=== PATIENT | female | born 1965 | race Caucasian/White ===

== ENCOUNTER 2023-02-12 08:22 | Outpatient (AMB) | payer OTHER, SELFPAY ==
--- NOTE | 2023-02-12 08:30 | MHC.OFFVIS ---
Intake Vital Signs 02/12/23 08:31 Height 5 ft 3 in Weight 227 lb 2 oz BMI 40.2 BP 118/70 Blood Pressure Location Rt brachial Position Sitting Pulse 88 Pulse Source Pulse Oximeter Pulse Oximetry (%) 97 Oxygen Delivery Method Room Air Intake Visit Reasons: f/u for Migraines. - Last saw MD at [facility]-Confir Intake Note: Patient presents for follow up migraine. Patient states I just want my aimovig refilled,My headaches are bad and have been having problems getting in to see her due to being sick Allergies LOBSTER Allergy (Unknown, Uncoded 02/12/23 08:32) HIVES Medication List - Last Reviewed 02/12/23 by MAGALI Montilla-complex with vitamin C 1 cap PO DAILY clonazepam 0.25 mg PO BEDTIME docusate sodium 100 mg PO DAILY erenumab-aooe (Aimovig Autoinjector) 140 mg subcut ONCE 30 days rbwnpnditai-mdyxaxvaz-venetqaj (Trelegy Ellipta) inhalation furosemide 20 mg PO QAM ibuprofen 800 mg PO Q8H magnesium oxide 500 mg PO DAILY potassium chloride 20 mEq PO DAILY roflumilast (Daliresp) 500 mcg PO DAILY sertraline 50 mg PO DAILY trazodone 150 mg PO BEDTIME PRN ubrogepant (Ubrelvy) 50 - 100 mg (0.5 - 1 x 100 mg) PO ONCE PRN 30 days HPI HPI Comments History of Present Illness Details 57-yr-old female presents for f/u visit for management of her migraine attacks. Pt last seen in Feb [address] Hitchcock at [facility]. Pt reports that she was doing well on Aimovig, however she lost insurance covergae for it. Since, she has had approx 4 headache days per week. Her migraines symptoms have not chnaged- continues to be right sided stabbing with flashing light on the right side usually, or holocranial aching. A/w photophobia, phonophobia, N/V. Pt has previously tried amitriptyline, Topamax, verapamil and Oxcarbazepine, which did not help. She has never tried a triptan d/t cardiac hx. [facility] Medical History (Updated 02/14/23 @ 19:12 by QUINCY Lee) Asthma Median nerve neuropathy History of alcohol abuse COPD (chronic obstructive pulmonary disease) CHF (congestive heart failure) Surgical History (Updated 02/12/23 @ 08:34 by MAGALI Montilla) History of surgery on arm H/O neck surgery History of carpal tunnel release Social History (Updated 02/12/23 @ 08:35 by MAGALI Montilla) Alcohol intake: never Patient Tobacco Use Status: Current everyday Tobacco user Review of Systems Const All systems reviewed & are unremarkable except as noted in HPI and below Physical Exam Vital Signs: Last Vital Signs Pulse 88 02/12/23 08:31 BP 118/70 02/12/23 08:31 Pulse Ox 97 02/12/23 08:31 Oxygen Delivery Method Room Air 02/12/23 08:31 BMI result Body Mass Index 40.2 Const General: cooperative and no acute distress Orientation/consciousness: patient oriented x3 HEENT Head: Yes normocephalic Resp Effort & Inspection: normal respiratory effort and able to speak in complete sentences Neuro General: patient oriented x3, gait normal and CN's II-XI intact bilaterally Cognition (Neuro): normal cognition Motor exam (neuro): 5/5 motor strength present throughout Psych Appearance: grossly normal Mental Status: mental status grossly normal Speech and movement: Normal speech and movement present Affect: normal affect Attitude: cooperative Thought process: Normal thought process present Thought content: Normal thought content present Insight: Good insight present (Psych) Judgement: Good judgement present (Psych) Assessment & Plan Assessment & Plan (1) Migraine without aura: Code(s): G43.009 - Migraine without aura, not intractable, without status migrainosus (2) KIANA (obstructive sleep apnea): Code(s): G47.33 - Obstructive sleep apnea (adult) (pediatric) Plan For overall headache management: Continue to optimize good self care- use CPAP nightly. For acute headache treatment: Trial Ubrogepant (Ubrelvy) 100mg tab, 1/2 - 1 tab (50-100mg) at onset of headache, may repeat in 2 hours. Max of 2 tabs (200mg) per 24 hours. May adjunct with OTC Tylenol 650mg q 4 hours, Ibuprofen 600mg q 6 hours, or Naproxen 440mg q 12 hrs prn. Reviewed potential adverse effects of gepants, including but not limited to fatigue, nausea, dry mouth, constipation. Previous acute migraine medication trials: None Acute migraine medication contraindications: All triptans d/t CHF and HTN dx For headache prevention medication: Resume Aimovig 140mg sc q month, as pt previously had good effect. Previous migraine prevention medication trials: amitriptyline, Topamax, verapamil and Oxcarbazepine- all ineffective. Migraine prevention medication contraindications: BBs d/t CHF and asthma/COPD dx. f/u in 6 months or sooner prn. Medications: New ubrogepant (Ubrelvy) take at onset of migraine, may repeat in 2hrs (may take w/ Ibuprofen) 50 - 100 mg (0.5 - 1 x 100 mg) PO ONCE 30 days PRN 16 tabs 3RF migraine headache Changed From erenumab-aooe (Aimovig Autoinjector) 140 mg subcut .q 30 days 1 mL 6RF To erenumab-aooe (Aimovig Autoinjector) 140 mg subcut ONCE 30 days 30 mL 6RF Coding Level of Care Code Est Pt Level 4 (05367) Diagnoses Migraine without aura G43.009 KIANA (obstructive sleep apnea) G47.33
[2023-02-12 08:31] VITALS: BP 118/70; PULSE 88; O2SAT 97; BMI 40.2
== END 2023-02-12 09:05 | disposition home or self-care (01) ==
PROVIDERS: PCP Physician Assistant Medical; Visit Provider Nurse Practitioner Family
DX: G43.009 Migraine without aura, not intractable, without status migrainosus (principal); G47.33 Obstructive sleep apnea (adult) (pediatric)
CPT/HCPCS: 99214

== ENCOUNTER → 2023-02-12 08:22 | Outpatient (BNVA) | payer OTHER, SELFPAY | PROVIDERS: PCP Physician Assistant Medical; Visit Provider Nurse Practitioner Family | DX: G43.009 Migraine without aura, not intractable, without status migrainosus (principal); G47.33 Obstructive sleep apnea (adult) (pediatric) | CPT/HCPCS: 99212 ==

== ENCOUNTER 2023-09-15 07:34 | Outpatient (AMB) | payer OTHER, SELFPAY ==
--- NOTE | 2023-09-15 07:34 | MHC.OFFVIS ---
Intake Visit Reasons: 6 mo f/u - Migraines [phone]- Confirmed Intake Note: Patient following up on migraines, migraines are better but not completely resolved still having them but not quite as often Allergies LOBSTER Allergy (Unknown, Uncoded 09/15/23 07:35) HIVES Medication List - Last Reconciled 09/15/23 by QUINCY Lee B-complex with vitamin C 1 cap PO DAILY clonazepam 0.25 mg PO BEDTIME docusate sodium 100 mg PO DAILY erenumab-aooe (Aimovig Autoinjector) 140 mg subcut ONCE 30 days mzbcmtkspvj-jemwrutrg-glxvpdjl (Trelegy Ellipta) inhalation furosemide 20 mg PO QAM ibuprofen 800 mg PO Q8H magnesium oxide 500 mg PO DAILY potassium chloride 20 mEq PO DAILY roflumilast (Daliresp) 500 mcg PO DAILY sertraline 50 mg PO DAILY trazodone 150 mg PO BEDTIME PRN ubrogepant (Ubrelvy) 50 - 100 mg (0.5 - 1 x 100 mg) PO ONCE PRN 30 days HPI Comments Details: 58-yr-old female presents for f/u televideo visit via [employer]par[employer] Pt denies any significant interval medical changes. She is using her CPAP nightly. Her BP is well-controlled. She has lost 50lbs through diet, exercise and [facility] wt management- is still working w/ the program. Does not plan to have surgery d/t cardiac and pulmonary issues.. Pt reports migraine headaches have been good, but not perfect. She is having 1-2 migraine headaches per week, not as severe, but last all day. The pain is more aching now, more rarely stabbing. Can wake up with headache or the headache can come later. She has resumed Aimovig, taken monthly. The Ubrelvy helps, but not fully effective. Has not tried repeating dose or taking w/ her Ibuprofen. Baseline headache characteristics: right sided stabbing with flashing light on the right side usually, or holocranial aching. A/w photophobia, phonophobia, N/V. [facility] Medical History (Updated 02/14/23 @ 19:12 by QUINCY Lee) Asthma Median nerve neuropathy History of alcohol abuse COPD (chronic obstructive pulmonary disease) CHF (congestive heart failure) Surgical History History of surgery on arm H/O neck surgery History of carpal tunnel release Social History Alcohol intake: never Patient Tobacco Use Status: Current everyday Tobacco user Physical Exam Const General: cooperative and no acute distress Orientation/consciousness: patient oriented x3 Resp Effort & Inspection: normal respiratory effort and able to speak in complete sentences Neuro General: patient oriented x3 Cognition (Neuro): normal cognition Psych Appearance: grossly normal Mental Status: mental status grossly normal Speech and movement: Normal speech and movement present Affect: normal affect Attitude: cooperative Telehealth Telehealth Telehealth Platform: Triparazzi Location of provider rendering services: practice address Location of patient: address on file Patient Identification confirmed using: Name, : Yes Telehealth method: video Patient verbally consented to treatment: Yes Patient verbally consented to billing insurance company: Yes Patient informed of any privacy concerns related to visit: Yes Minutes spent on Phone/Video with Pt.: 16 Assessment & Plan Assessment & Plan (1) Migraine without aura: Code(s): G43.009 - Migraine without aura, not intractable, without status migrainosus Category: Medical (2) KIANA (obstructive sleep apnea): Code(s): G47.33 - Obstructive sleep apnea (adult) (pediatric) Category: Medical Plan For overall headache management: Continue to optimize good self care- use CPAP nightly. ? For acute headache treatment: Continue Ubrogepant (Ubrelvy) 100mg tab, 1/2 - 1 tab (50-100mg) at onset of headache, but if not fully effective repeat dose in 2 hours. Max of 2 tabs (200mg) per 24 hours. May take w/ her Ibuprofen 800mg q 8 hours. Reviewed potential adverse effects of gepants, including but not limited to fatigue, nausea, dry mouth, constipation. Previous acute migraine medication trials: None Acute migraine medication contraindications: All triptans d/t CHF and HTN dx Future considerations- Nurtec ODT prn. ? For headache prevention medication: Re-trial Topiramate 25-50mg qhs. Continue Aimovig 140mg sc q month, as pt has had > 50% reduction in migraine frequency. Previous migraine prevention medication trials: amitriptyline, Topamax, verapamil and Oxcarbazepine- all ineffective. Migraine prevention medication contraindications: BBs d/t CHF and asthma/COPD dx. ? f/u in 6 months or sooner prn. Medications: New topiramate 25 - 50 mg (1 - 2 x 25 mg) PO BEDTIME 30 days 60 tabs 3RF Refilled ubrogepant (Ubrelvy) take at onset of migraine, may repeat in 2hrs (may take w/ Ibuprofen) 50 - 100 mg (0.5 - 1 x 100 mg) PO ONCE 30 days PRN 16 tabs 6RF migraine headache erenumab-aooe (Aimovig Autoinjector) 140 mg subcut ONCE 30 days 30 mL 6RF Coding Level of Care Code Tele Est Pt Level 4 (53129) Diagnoses Migraine without aura G43.009 KIANA (obstructive sleep apnea) G47.33
--- OUTSIDE RECORDS SUMMARY | 2023-09-15 07:35 | XMS_ITS | Continuity of Care Document ---
Author Organization [facility] Address [address] [place] [address]- Care Team Providers Care Supervisor [employer] Name Role Phone Kwame Bolton Primary Care Physician Encounter [facility] Date(s): 01/05/22 - 02/25/22 [facility] [address] [place] [id number] Attending Physician: Not on Staff, Attending MD Allergies, Adverse Reactions, Alerts Substance Reaction Severity Status Lobster throat tightening; vomiting Active Shrimp throat tightening; vomiting Active Other Environmental Allergy Seasonal Allergies Active FIRST Metronidazole 1 vomiting, diarrhea, dyspnea Pers istent Moderate Active 1VOMITING DIARRHEA,SEVERE DYPNEA Immunizations Given and Recorded Vaccine Date Status Refusal Reason SARS-CoV-2 (COVID-19) mRNA-1273 vaccine 03/24/21 R ecorded SARS-CoV-2 (COVID-19) mRNA-1273 vaccine 1 08/22/20 Recorded SARS-CoV-2 (COVID-19) mRNA-1273 vaccine 2 07/24/20 Recorded Influenza Virus Vaccine (oldterm) 02/23/20 Recorde d Influenza Virus Vaccine (oldterm) 3 02/23/20 Recor ded Influenza Virus Vaccine (oldterm) 4 03/14/08 Given Influenza Virus Vaccine (oldterm) 5 04/01/07 Given influenza virus vaccine, inactivated 02/01/19 Give n influenza virus vaccine, inactivated 03/09/18 Give n influenza virus vaccine, inactivated 6 02/22/17 Gi cecile influenza virus vaccine, inactivated 03/09/16 Give n influenza virus vaccine, inactivated 03/08/15 Give n influenza virus vaccine, inactivated 02/27/14 Give n influenza virus vaccine, inactivated 07/20/13 Give n influenza virus vaccine, inactivated 7 04/19/12 Gi cecile influenza virus vaccine, inactivated 8 03/11/10 Gi cecile influenza virus vaccine, inactivated 9 02/26/09 Gi cecile tetanus-diphtheria toxoids (Td) 09/27/18 Given pneumococcal 23-valent vaccine 10 01/03/18 Given pneumococcal 13-valent vaccine 02/10/16 Given influ virus vac, H1N1, inactive(oldterm) 11 05/17/09 Given Tet/Diphth/Acel, Pertussis (oldterm) 12 05/30/08 G iven Pneumococcal Poly (PPV23) (oldterm) 08/08/06 Given Pneumococcal Vaccine (oldterm) 08/08/06 Given 1Result Comment: dose 2 2Result Comment: dose 1 3Result Comment: Re[facility] at [facility] on [facility] in [place] 4Admin Note: vis given 5Admin Note: vis given 6Result Comment: [02/22/2017] [facility] [id number] 7Admin Note: flulaval vis given vis date 11/16/2011 8Admin Note: VIS GIVEN VIS DATE 12/24/2009 9Admin Note: VIS GIVEN 12/25/08 [employer] 10Result Comment: [01/03/2018 Uncharted] ERROR NOT GIVEN 11Result Comment: [id number] exp 06/2009 12Admin Note: vis given Medications 02 2L via nasal cannula prn exertion or sob, also us pm bleed through cpap 02 2L via nasal cannula prn exertion or sob, also us pm bleed through cpap, See Instructions, # 1 each, Refills 0, Tot. Refills 0, Maintenance, 02 2L VIA NASAL CANNULA DX:COPD CHF J45.909 I50.9 DURATION LIFETIME Also needs portable 02 9L on wheel... Start Date: 02/02/20 Status: Ordered Acapella Device Acapella Device, See Instructions, # 1 each, Refills 3, Tot. Refills 3, Maintenance, COPD CHF 150.9J44.9, 07/12/19 11:29:00 EST, Compound Start Date: 07/12/19 Status: Ordered B-Complex with B-12 oral tablet See Instructions, TAKE ONE TABLET BY MOUTH DAILY WITH FOOD, # 90 tablet, 3 Refills, [facility], 90, TAKE ONE TABLET BY MOUTH DAILY WITH FOOD, 163, cm, 09/26/21 13:20:00 EDT, Height Start Date: 12/15/21 Status: Ordered Breo Ellipta 200 mcg-25 mcg/inh inhalation powder 1 puffs, Inhalation, Daily, rinse mouth and throat after use, # 60 Unknown, 5 Refills, Maintenance,02/18/22 11:21:00 EDT, [facility], 30, INHALE 1 PUFF BY MOUTH INTO THE lungs DAILY. rinse mouth and throat after use, 163, cm, 12/29/21 9:41:00 ED... Start Date: 02/18/22 Status: Ordered Cane See Instructions, # 1 each, Maintenance, DX LEFT KNEE PAIN /ACL TEAR /ARTHRITIS DX CODE M25.562 HT 163 CM WT 123 KG DURATION -LIETIME PATIENTS CANE BROKE, 01/06/19 8:36:49 EDT, Compound Start Date: 01/06/19 Status: Ordered Comfort EZ Pen Bristol 32 gauge x 5/32 Comfort EZ Pen Bristol 32 gauge x 5/32 , See Instructions, # 50 Unknown, 11 Refills, USE DAILY WITHvictoza injection, 163, cm, 03/25/21 9:16:00 EST, Height Start Date: 04/01/21 Status: Ordered Comfort EZ Pen Bristol 32 gauge x 5/32 Comfort EZ Pen Bristol 32 gauge x 5/32 , See Instructions, # 50 Unknown, 0 Refills, USE DAILY WITH victoza injection, 163, cm, 12/18/20 9:01:00 EDT, Height Start Date: 02/05/21 Status: Ordered D3 1000 intl units (25 mcg) oral tablet 1 tablet, By Mouth, Daily, # 30 tablet, 5 Refills, [facility], 163, cm, 09/26/21 13:20:00 EDT,Height Start Date: 12/22/21 Status: Ordered Daliresp 500 mcg oral tablet 1 tablet, By Mouth, Daily, # 30 tablet, 6 Refills, [facility], 163, cm, 09/26/21 13:20:00 EDT,Height Start Date: 11/14/21 Status: Ordered docusate sodium 100 mg oral capsule 1 capsule, By Mouth, Daily, # 60 each, 5 Refills, Maintenance, 02/18/22 11:21:00 EDT, [facility], 163, cm, 12/29/21 9:41:00 EDT, Height Start Date: 02/18/22 Status: Ordered Electric Neck Shawl Heating Pad Electric Neck Shawl Heating Pad, See Instructions, # 1 each, Refills 0, Tot. Refills 0, Maintenance, Use for chronic neck pain, neck muscle spasms. M54.2 and M62.838, 07/11/19 14:00:00 EST, Compound Start Date: 07/11/19 Status: Ordered furosemide 40 mg oral tablet 1, tablet, By Mouth, 2 times a day, # 60 tablet, Refills 4, Route to Pharmacy Electronically, [facility], 163, cm, 09/26/21 13:20:00 EDT, Height Start Date: 11/14/21 Status: Ordered guaiFENesin 100 mg/5 mL oral liquid 20 mL = 400 mg, By Mouth, 2 times a day, for congestion, cough. with fluids, # 240 mL, 0 Refills, Maintenance, 04/14/21 8:42:00 EST, [place], [place] - [phone], Partial fill upon patient request if the prescription is for a schedu... Start Date: 04/14/21 Status: Ordered HOME BP MONITOR WITH WRIST CUFF HOME BP MONITOR WITH WRIST CUFF, See Instructions, # 1 each, Refills 0, Tot. Refills 0, Maintenance, HOME BP MONITOR WITH WRIST CUFF DX HYPERTENSION I10, 12/12/19 12:14:00 EDT, Supply Start Date: 12/12/19 Status: Ordered Hospital Bed See Instructions, # 1 each, Maintenance, DX: COPD,ASTHMA,KIANA,CERVICAL DISC DISEASES, CHRONIC PAIN JJ44.9,G47.33 M50.9MG89.29 DURATION- LIFETIME, 03/29/19 16:31:32 EST, Compound Start Date: 03/29/19 Status: Ordered ibuprofen 800 mg oral tablet 1, tablet, By Mouth, Every 8 hours, PRN, TAKE WITH FOOD OR MILK, # 60 tablet, Refills 0, Maintenance, NEEDED FOR SEVERE PAIN, 02/18/22 11:21:00 EDT, Route to Pharmacy Electronically, [facility], 163, cm, 12/29/21 9:41:00 EDT, Height Start Date: 02/18/22 Status: Ordered INCONCTINENCE LINERS SUPER ABSORBANT INCONCTINENCE LINERS SUPER ABSORBANT, See Instructions, # 180 each, Refills 11, Tot. Refills 11, Maintenance, DX MIXED INCONTINENCE N39.46 6 PER DAY, 10/20/21 10:16:00 EDT, Compound Start Date: 10/20/21 Status: Ordered Insulin Syringe, BD Ultra-Fine 0.3 cc 30 G x 12.7 mm (1/2in) See Instructions, # 50 each, Maintenance, use with daily victoza injection, 12/18/20 10:58:00 EDT, Supply, 163, cm, 12/18/20 9:01:00 EDT, Height Start Date: 12/18/20 Status: Ordered Invacare Alternating Pressure Pad Invacare Alternating Pressure Pad, See Instructions, # 1 each, Refills 0, Tot. Refills 0, Maintenance, Dx codes: M54.2 and M79.10 Duration: lifetime., 02/27/21 19:01:00 EDT, Supply Start Date: 02/27/21 Status: Ordered Locking Bathtub Grab Bar Locking Bathtub Grab Bar, See Instructions, # 1 each, Refills 0, Tot. Refills 0, Maintenance, DX OSTEOARTHRITIS OF KNEES,CHF,WEAKNESS, RISK FOR FALLS M25.562,M17.0.150.9 DURATION - LIFETIME, 06/17/1913:14:03 EST, Compound Start Date: 06/17/18 Status: Ordered loratadine 10 mg oral tablet 1, tablet, By Mouth, Daily, # 30 tablet, Refills 3, Route to Pharmacy Electronically, [facility], 163, cm, 09/26/21 13:20:00 EDT, Height Start Date: 12/22/21 Status: Ordered magnesium gluconate 250 mg oral tablet 1 tablet = 250 mg, By Mouth, 2 times a day, # 60 tablet, 2 Refills, Maintenance, 02/23/22 19:10:00 EDT, [facility] - [place], [place] - [phone], Partial fill upon patient request if the prescription is for a schedule II opioid drug., 1 tablet B... Start Date: 02/23/22 Status: Ordered Narcan 4 mg/0.1 mL nasal spray = 4 mg, Inhalation, Once, # 2 each, 0 Refills, Soft Stop, 06/02/18 15:53:05 EST Start Date: 06/02/18 Status: Ordered NO RINSE SHAMPOO CAP NO RINSE SHAMPOO CAP, See Instructions, # 15 each, Refills 11, Tot. Refills 11, Maintenance, DX: CHF WEAKNESS 150.9 R53.1, 11/28/18 9:21:33 EDT, Compound Start Date: 11/28/18 Status: Ordered o2 o2, See Instructions, # 1 each, Refills 0, Tot. Refills 0, Maintenance, o2 2l via nasal cannula continuous will also need portable tank, 06/11/21 14:49:00 EST, Compound Start Date: 06/11/21 Status: Ordered open faced mask open faced mask, See Instructions, # 1 each, Refills 11, Tot. Refills 11, Maintenance, Codes G47.33, J44.9, 01/31/20 16:26:00 EDT, Compound Start Date: 01/31/20 Status: Ordered overnight oximetry overnight oximetry, See Instructions, # 1 each, Refills 0, Tot. Refills 0, Maintenance, copd, kiana ,nocturnal hypoxia J44.9,G47.33,RO9.2, 02/28/21 9:05:00 EDT, Supply Start Date: 02/28/21 Status: Ordered overnight oximetry overnight oximetry, See Instructions, # 1 each, Refills 0, Tot. Refills 0, Maintenance, Diagnosis of COPD J44.9, 02/27/21 19:32:00 EDT, Supply Start Date: 02/27/21 Status: Ordered portable oxygen concentrator portable oxygen concentrator, See Instructions, # 1 each, Refills 0, Tot. Refills 0, Maintenance, Dx severe COPD. Codes J44.9, R09.02, 01/31/20 16:26:00 EDT, Compound Start Date: 01/31/20 Status: Ordered Potassium Chloride (Onj-Tzev-Rfy M20) 20 mEq oral tablet, extended release 1 tablet, By Mouth, Daily, # 30 tablet, 6 Refills, [facility], 163, cm, 09/26/21 13:20:00 EDT,Height Start Date: 11/14/21 Status: Ordered pulse dose evaluation pulse dose evaluation, See Instructions, # 1 each, Refills 0, Tot. Refills 0, Maintenance, Pulse Dose Evaluation dx: copd,chf 150.9, j44.9, 01/31/20 16:26:00 EDT, Supply Start Date: 01/31/20 Status: Ordered seat cushion for coccygeal pain seat cushion for coccygeal pain, See Instructions, # 1 each, Refills 0, Tot. Refills 0, Maintenance, Dx code: M53.3 Duration: lifetime, 02/27/21 19:05:00 EDT, Supply Start Date: 02/27/21 Status: Ordered sertraline 50 mg oral tablet 1 tablet, By Mouth, Daily, # 30 tablet, 3 Refills, [facility], 163, cm, 09/26/21 13:20:00 EDT,Height Start Date: 12/15/21 Status: Ordered square orthopedic pillow with central square depression and surrounding bolster square orthopedic pillow with central square depression and surrounding bolster, See Instructions, # 1 each, Refills 0, Tot. Refills 0, Maintenance, Product number [id number] Dx codes: M54.2 Duration: lifetime, 02/27/21 19:03:00 EDT, Supply Start Date: 02/27/21 Status: Ordered traZODone 150 mg oral tablet 3 tablet, By Mouth, Daily at bedtime, # 270 tablet, 6 Refills, [facility], 163, cm, 09/26/21 13:20:00 EDT, Height Start Date: 11/14/21 Status: Ordered value series power lift chair [id number] value series power lift chair [id number], See Instructions, # 1 each, Refills 0, Tot. Refills 0, Maintenance, Diagnosis codes: G89.29, M19.90, J44.9, Z74.09, 01/30/20 9:31:00 EDT, Supply Start Date: 01/30/20 Status: Ordered varenicline 1mg tablet 1 tablet, By Mouth, 2 times a day, # 56 tablet, 5 Refills, [facility], 163, cm, 09/26/21 13:20:00 EDT, Height Start Date: 12/22/21 Status: Ordered Ventolin HFA 108 mcg/inh inhalation aerosol with adapter 2 puffs, Inhalation, 4 times a day, PRN Wheezing/Shortness of Breath, 90 days supply, # 1 each, 5 Refills, Maintenance, 10/07/20 6:45:00 EDT, [place], [place] - [phone], 163, cm, 09/24/20 13:25:00 EDT, Height Start Date: 10/07/20 Status: Ordered Victoza 18 mg/3 mL subcutaneous solution = 1.2 mg, Subcutaneous Infusion, Daily, dose increase to 1.2mg qd 04/29/21., # 15 mL, 5 Refills, Maintenance, 04/29/21 8:26:00 EST, [place], [place] - [phone], Partial fill upon patient request if the prescription is for a schedule... Start Date: 04/29/21 Status: Ordered wrist blood pressure monitor wrist blood pressure monitor, See Instructions, # 1 each, Refills 0, Tot. Refills 0, Maintenance, check daily BP for hypertension. R03.0, 12/05/19 8:52:00 EDT, Supply Start Date: 12/05/19 Status: Ordered Problem List Condition Confirmation Course Effective Dates Status Health St atus Informant Adjustment Disorder with Mixed Anxiety and Depressed Mood Confirmed Active Medical orders for life-sustaining treatment (MOLST) form in chart 1 Confirmed Active Anxiety Confirmed Active Asthma/COPD Overlap Syndrome Confirmed Active Advanced COPD Confirmed Active [facility] biopsy of cervix 2 Confirmed 07/2007 Active Diastolic CHF (congestive heart failure) Confirmed Active Hypertension Confirmed Active Hyponatremia Confirmed Active Median nerve palsy 3 Confirmed Active KIANA - Obstructive sleep apnea 4, 5 Confirmed Active BHN/CCA/CP-Jo Ann Harvey [phone]/Health [facility] active care coordination Confirmed Active Severe obesity Confirmed Active 1Health Care Agent: Fatmata Porter, 2along with endo cervical curettage 3bilateral R>L 4titration results reviewed - CPAP at 14 cm H2O. If remained symptomatic then a trial of BiPAP due to hypoventilation component. 5PSG done on 04/04/2007 - severe KIANA, desat to 83%. 42% of night below 90%. Social History Social History Type Response Smoking Status Current every day sm oker; Type: Cigarettes; Interested in cessation: No; Tobacco use times per day: 15 a day; Started at age: 9; entered on: 02/06/14 Sex Female Patient Care team information Personnel Name: Kwame Bolton Address: Address: [address] [place] [address] [place] [address]
--- OUTSIDE RECORDS SUMMARY | 2023-09-15 07:35 | XMS_ITS | Continuity of Care Document ---
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 Allergies, Adverse Reactions, Alerts Substance Reaction Severity Status Lobster throat tightening; vomiting Active Shrimp throat tightening; vomiting Active Other Environmental Allergy Seasonal Allergies Active FIRST Metronidazole 1 vomiting, diarrhea, dyspnea Pers istent Moderate Active 1VOMITING DIARRHEA,SEVERE DYPNEA Immunizations Given and Recorded Vaccine Date Status Refusal Reason SARS-CoV-2 (COVID-19) mRNA-1273 vaccine 1 08/22/20 Recorded [...] Comment: dose 1 3Result Comment: Received at [facility] in [place] 4Admin Note: vis given 5Admin Note: vis given 6Result Comment: [02/22/2017] [facility] [place] [id number] 7Admin Note: flulaval vis given vis date 11/16/2011 8Admin Note: VIS GIVEN VIS DATE 12/24/2009 9Admin Note: VIS GIVEN 12/25/08 chadian 10Result Comment: [01/03/2018 Uncharted] ERROR NOT GIVEN 11Result Comment: [id number] exp 06/2009 12Admin Note: vis given Medications [...] EST, Compound Start Date: 07/12/19 Status: Ordered Breo Ellipta 200 mcg-25 mcg/inh inhalation powder 1 puffs, Inhalation, Daily, rinse mouth and throat after use, # 60 Unknown, 5 Refills, [facility], 30, INHALE 1 PUFF BY MOUTH INTO THE lungs DAILY. rinse mouth and throat after use, 163, cm, 03/25/21 9:16:00 EST, Height Start Date: 04/01/21 Status: Ordered Cane See Instructions, # 1 each, Maintenance, DX LEFT KNEE PAIN /ACL TEAR /ARTHRITIS DX CODE M25.562 HT 163 CM WT 123 KG DURATION -LIETIME PATIENTS VERA BOYKIN, 01/06/19 8:36:49 EDT, Compound Start Date: 01/06/19 Status: Ordered chantix 1mg tablet 1 tablet, By Mouth, 2 times a day, # 60 tablet, 2 Refills, Maintenance, 04/29/21 8:24:00 EST, [place], [place] - [phone], 163, cm, 04/29/21 8:04:00 EST, Height Start Date: 04/29/21 Status: Ordered Comfort EZ Pen [place] 32 gauge x 5/32 Comfort EZ Pen [place] 32 gauge x 5/32 , See Instructions, # 50 Unknown, 11 Refills, USE DAILY WITHvictoza injection, 163, cm, 03/25/21 9:16:00 EST, Height Start Date: 04/01/21 Status: Ordered Comfort EZ Pen [place] 32 gauge x 5/32 Comfort EZ Pen [place] 32 gauge x 5/32 , See Instructions, # 50 Unknown, 0 Refills, USE DAILY WITH victoza injection, 163, cm, 12/18/20 9:01:00 EDT, Height Start Date: 02/05/21 Status: Ordered Daliresp 500 mcg oral tablet 1 tablet, By Mouth, Daily, # 30 tablet, 6 Refills, [facility], 163, cm, 04/29/21 8:04:00 EST, Height Start Date: 05/02/21 Status: Ordered docusate sodium 100 mg oral capsule 1 capsule, By Mouth, Daily, # 60 each, 5 Refills, Maintenance, 04/04/21 11:02:00 EST, [place], [place] - [phone], 163, cm, 03/25/21 9:16:00 EST, Height Start Date: 04/04/21 Status: Ordered doxycycline 100mg oral capsule doxycycline 100mg oral capsule, 1, capsule, By Mouth, 2 times a day, # 14 capsule, Refills 0, Tot. Refills 0, Maintenance, 04/29/21 8:31:00 EST, Supply, 163, cm, 04/29/21 8:04:00 EST, Height Start Date: 04/29/21 Stop Date: 05/06/21 Status: Ordered Electric Neck Shawl Heating Pad Electric Neck Shawl Heating Pad, See Instructions, # 1 each, Refills 0, Tot. Refills 0, Maintenance, Use for chronic neck pain, neck muscle spasms. M54.2 and M62.838, 07/11/19 14:00:00 EST, Compound Start Date: 07/11/19 Status: Ordered furosemide 40 mg oral tablet 1, tablet, By Mouth, 2 times a day, # 60 tablet, Refills 6, Route to Pharmacy Electronically, [facility], 163, cm, 04/29/21 8:04:00 EST, Height Start Date: 05/02/21 Status: Ordered guaiFENesin 100 mg/5 mL oral liquid 20 mL = 400 mg, By Mouth, 2 times a day, for congestion, cough. with fluids, # 240 mL, 0 Refills, Maintenance, 04/14/21 8:42:00 EST, [place], [place] - [phone], Partial fill upon patient request if the [...] FOOD OR MILK, # 60 tablet, Refills 11, NEEDEDFOR SEVERE PAIN, Route to Pharmacy Electronically, [facility], 163, cm, 03/25/21 9:16:00 EST, Height Start Date: 04/03/21 Status: Ordered INCONCTINENCE LINERS SUPER ABSORBANT INCONCTINENCE LINERS SUPER ABSORBANT, See Instructions, # 180 each, Refills 11, Tot. Refills 11, Maintenance, DX MIXED INCONTINENCE N39.46 6 PER DAY, 01/18/19 14:01:45 EDT, Compound Start Date: 01/18/19 Status: Ordered Insulin Syringe, BD Ultra-Fine 0.3 [...] Status: Ordered loratadine 10 mg oral tablet 10 mg, 1, tablet, By Mouth, Daily, # 30 tablet, Refills 3, Tot. Refills 3, Maintenance, 02/26/21 9:41:00 EDT, Route to Pharmacy Electronically, [place], [place] - [id number], Partialfill upon patient request if the prescription is fo... Start Date: 02/26/21 Status: Ordered magnesium oxide 400 mg oral tablet 1 tablet = 400 mg, By Mouth, Daily at bedtime, for 30 days, # 30 tablet, 5 Refills, Acute 08/26/21 10:54:00 EDT, 02/27/21 10:54:00 EDT, [facility], Partial fill upon patient request if the prescription is for a schedule II opioid drug., 16... Start Date: 02/27/21 Stop Date: 08/26/21 Status: Ordered Narcan 4 mg/0.1 mL nasal [...] cannula continuous will also need portable tank, 03/29/19 16:25:25 EST, Compound Start Date: 03/29/19 Status: Ordered open faced mask open faced mask, See Instructions, # 1 each, Refills 11, Tot. Refills 11, Maintenance, Codes G47.33, J44.9, 01/31/20 16:26:00 EDT, Compound Start Date: 01/31/20 Status: Ordered overnight oximetry overnight oximetry, See Instructions, # 1 each, Refills 0, Tot. Refills 0, Maintenance, copd, kinaa ,nocturnal hypoxia J44.9,G47.33,RO9.2, 02/28/21 9:05:00 EDT, Supply [...] Start Date: 01/31/20 Status: Ordered Potassium Chloride (Qlv-Yrmf-Egl M20) 20 mEq oral tablet, extended release 1 tablet, By Mouth, Daily, # 30 tablet, 6 Refills, [facility], 163, cm, 04/29/21 8:04:00 EST, Height Start Date: 05/02/21 Status: Ordered pulse dose evaluation pulse dose [...] tablet, By Mouth, Daily, # 30 tablet, 2 Refills, [facility], 163, cm, 04/29/21 8:04:00 EST, Height Start Date: 05/28/21 Status: Ordered square orthopedic pillow with central square depression and surrounding bolster square orthopedic pillow with central square depression and surrounding bolster, See Instructions, # 1 each, Refills 0, Tot. Refills 0, Maintenance, Product number [id number] Dx codes: M54.2 Duration: lifetime, 02/27/21 19:03:00 EDT, Supply Start Date: 02/27/21 Status: Ordered traZODone 150 mg oral tablet 3 tablet, By Mouth, Daily at bedtime, # 270 tablet, 1 Refills, Maintenance, 05/28/21 10:31:00 EST, [place], [place] - [id number], 163, cm, 04/29/21 8:04:00 EST, Height Start Date: 05/28/21 Status: Ordered triamcinolone 0.025% topical cream 1 applicator, Topically, 3 times a day, PRN eczema, # 80 Gm, 2 Refills, Maintenance, 08/16/19 15:48:00 EDT, [place], [place] -, 1 applicator Topically 3 times a day,PRN:eczema, 163, cm, 07/11/19 13:24:00 EST, Height, 114, kg, 04/19/18... Start Date: 08/16/19 Status: Ordered value series power lift chair [id number] value series power lift chair [id number], See Instructions, # 1 each, Refills 0, Tot. Refills 0, Maintenance, Diagnosis codes: G89.29, M19.90, J44.9, Z74.09, 01/30/20 9:31:00 EDT, Supply Start Date: 01/30/20 Status: Ordered Ventolin HFA 108 mcg/inh inhalation aerosol with adapter 2 puffs, Inhalation, 4 times a day, PRN Wheezing/Shortness of Breath, 90 days supply, # 1 each, 5 Refills, Maintenance, 10/07/20 6:45:00 EDT, [facility] [id number], 163, cm, 09/24/20 13:25:00 EDT, Height Start Date: 10/07/20 Status: Ordered Victoza 18 mg/3 mL subcutaneous solution = 1.2 mg, Subcutaneous Infusion, Daily, dose increase to 1.2mg qd 04/29/21., # 15 mL, 5 Refills, Maintenance, 04/29/21 8:26:00 EST, [facility] [phone], Partial fill upon patient request if the prescription is for a schedule... Start Date: 04/29/21 Status: Ordered Vitamin B Complex oral tablet, extended release 1 tablet, By Mouth, Daily, with food., # 90 tablet, 3 Refills, Maintenance, 12/18/20 10:26:00 EDT, [facility] [phone], Partial fill upon patient request if the prescription is for a schedule II opioid drug., 1 tablet By Rosana... Start Date: 12/18/20 Stop Date: 12/13/21 Status: Ordered Vitamin D3 1000 intl units oral tablet 1 tablet = 1,000 International_Units, By Mouth, Daily, # 30 tablet, 5 Refills, Maintenance, 01/31/21 13:11:00 EDT, [facility] [phone], 163, cm, 12/18/20 9:01:00 EDT, Height Start Date: 01/31/21 Stop Date: 07/30/21 Status: Ordered wrist blood pressure monitor wrist blood pressure monitor, See Instructions, # 1 each, Refills 0, Tot. Refills 0, Maintenance, check daily BP for hypertension. 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
--- OUTSIDE RECORDS SUMMARY | 2023-09-15 07:35 | XMS_ITS | Continuity of Care Document ---
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 Driver Assistant Name Role Phone Kwame Bolton Primary Care Physician Encounter [facility] Date(s): 07/03/20 - 08/02/20 [facility] [address] [place] [id number]- Allergies, Adverse Reactions, Alerts Substance Reaction Severity Status Lobster throat tightening; vomiting Active Shrimp throat tightening; vomiting Active Other Environmental Allergy Seasonal Allergies Active FIRST Metronidazole 1 vomiting, diarrhea, dyspnea Pers istent Moderate Active 1VOMITING DIARRHEA,SEVERE DYPNEA Immunizations Given and Recorded Vaccine Date Status Refusal Reason Influenza Virus Vaccine (oldterm) 02/23/20 Recorde d Influenza Virus Vaccine (oldterm) 1 02/23/20 Recor ded Influenza Virus Vaccine (oldterm) 2 03/14/08 Given Influenza Virus Vaccine (oldterm) 3 04/01/07 Given influenza virus vaccine, inactivated 02/01/19 Give n influenza virus vaccine, inactivated 03/09/18 Give n influenza virus vaccine, inactivated 4 02/22/17 Gi cecile influenza virus vaccine, inactivated 03/09/16 Give n influenza virus vaccine, inactivated 03/08/15 Give n influenza virus vaccine, inactivated 02/27/14 Give n influenza virus vaccine, inactivated 07/20/13 Give n influenza virus vaccine, inactivated 5 04/19/12 Gi cecile influenza virus vaccine, inactivated 6 03/11/10 Gi cecile influenza virus vaccine, inactivated 7 02/26/09 Gi cecile tetanus-diphtheria toxoids (Td) 09/27/18 Given pneumococcal 23-valent vaccine 8 01/03/18 Given pneumococcal 13-valent vaccine 02/10/16 Given influ virus vac, H1N1, inactive(oldterm) 9 05/17/09 Given Tet/Diphth/Acel, Pertussis (oldterm) 10 05/30/08 G iven Pneumococcal Poly (PPV23) (oldterm) 08/08/06 Given Pneumococcal Vaccine (oldterm) 08/08/06 Given 1Result Comment: Received at [facility] on [address] in [place] 2Admin Note: vis given 3Admin Note: vis given 4Result Comment: [02/22/2017] [facility] [id number] 5Admin Note: flulaval vis given vis date 11/16/2011 6Admin Note: VIS GIVEN VIS DATE 12/24/2009 7Admin Note: VIS GIVEN 12/25/08 hebrew 8Result Comment: [01/03/2018 Uncharted] ERROR NOT GIVEN 9Result Comment: [id number] exp 06/2009 10Admin Note: vis given Medications 02 2L via [...] EST, Compound Start Date: 07/12/19 Status: Ordered Acidophilus Probiotic Blend oral capsule 1 capsule, By Mouth, Daily, # 14 capsule, 0 Refills, Maintenance, 03/05/20 14:41:00 EDT, [facility]/pharmacy #[id number], 1 capsule By Mouth Daily,x14 days, 163, cm, 03/05/20 13:58:00 EDT, Height, 114, kg, 04/19/18 23:58:00 EST, Dry Weight Start Date: 03/05/20 Stop Date: 03/19/20 Status: Ordered Azithromycin 5 Day Dose Pack 250 mg oral tablet See Instructions, as directed on package labeling, # 6 each, 0 Refills, Maintenance, 07/31/20 14:22:00 EDT, [facility] [id number], Partial fill upon patient request if the prescription is for a schedule II opioid drug., 163, c... Start Date: 07/31/20 Status: Ordered Biotene Moisturizing Mouth oral spray 1 sprays, By Mouth, 6 times a day, please dispense 2 bottles per month., # 2 each, 5 Refills, Maintenance, 06/11/20 11:38:00 EST, [facility] [id number], 1 sprays By Mouth 6 times a day,Instr:please dispense 2 bottles per month... Start Date: 06/11/20 Status: Ordered Breo Ellipta 200 mcg-25 mcg/inh inhalation powder 1 puffs, Inhalation, Daily, Rinse mouth well after each use, # 1 each, 5 Refills, Maintenance, 08/16/19 15:52:00 EDT, Powder, [place], [place] -, 1 puffs Inhalation Daily,Instr:[place] well after each use, 163, cm, 07/11/19 13:24:... Start Date: 08/16/19 Status: Ordered Breo Ellipta 200 mcg-25 mcg/inh inhalation powder See Instructions, INHALE 1 PUFF BY MOUTH INTO THE lungs DAILY. rinse mouth and throat after use, # 60 Unknown, 11 Refills, 03/27/20 10:56:00 EST, [facility] [id number], 30, INHALE 1 PUFF BY MOUTH INTO THE lungs DAILY. rinse mo... Start Date: 03/27/20 Status: Ordered Cane See Instructions, # 1 each, Maintenance, DX LEFT KNEE PAIN /ACL TEAR /ARTHRITIS DX CODE M25.562 HT 163 CM WT 123 KG DURATION -LIETIME PATIENTS CANE BROKE, 01/06/19 8:36:49 EDT, Compound Start Date: 01/06/19 Status: Ordered chantix 1mg tablet See Instructions, TAKE ONE TABLET BY MOUTH 2 (two) times a day, # 56 tablet, 3 Refills, Maintenance, 03/27/20 10:55:00 EST, [facility] [id number], 163, cm, 03/05/20 13:58:00 EDT, Height, 114, kg, 04/19/18 23:58:00 EST, Dry Weight Start Date: 03/27/20 Status: Ordered clonazePAM 0.5 mg oral tablet 2 tablet = 1 mg, By Mouth, 2 times a day, # 120 tablet, 2 Refills, Maintenance, 07/09/20 16:30:00 EST, [place], [place] - [id number], 163, cm, 07/08/20 9:27:00 EST, Height Start Date: 07/09/20 Stop Date: 10/07/20 Status: Ordered Daliresp 500 mcg oral tablet See Instructions, 1 tablet By Mouth Daily, # 30 each, 6 Refills, Maintenance, 08/16/19 15:51:00 EDT, [place], [place] -, 163, cm, 07/11/19 13:24:00 EST, Height, 114, kg, 04/19/18 23:58:00 EST, Dry Weight Start Date: 08/16/19 Status: Ordered Daliresp 500 mcg oral tablet See Instructions, TAKE ONE TABLET BY MOUTH DAILY, # 30 tablet, 6 Refills, Maintenance, [facility], 163, cm, 03/05/20 13:58:00 EDT, Height, 114, kg, 04/19/18 23:58:00 EST, Dry Weight Start Date: 03/19/20 Status: Ordered Deep Sea Nasal 0.65% nasal spray 2 sprays, Nares, Both, 2 times a day, for congestion and allergies., # 1 bottle, 11 Refills, Maintenance, 09/29/18 13:31:39 EDT, 2 sprays Nares, Both 2 times a day,Instr:for congestion and allergies. Start Date: 09/29/18 Status: Ordered dexamethasone 4 mg oral tablet 1 tablet = 4 mg, By Mouth, Daily, 0 Refills, Maintenance, 12/20/18 9:31:36 EDT Start Date: 12/20/18 Status: Ordered docusate sodium 100 mg oral capsule 100 mg, 1, capsule, By Mouth, 2 times a day, # 30 capsule, Refills 5, Tot. Refills 5, Maintenance, 12/15/19 10:10:00 EDT, Route to Pharmacy Electronically, [facility] [id number], 163, cm, 07/11/19 13:24:00 EST, Height, 114, kg... Start Date: 12/15/19 Status: Ordered docusate sodium 100 mg oral capsule See Instructions, TAKE ONE CAPSULE BY MOUTH 2 (two) times a day, # 60 capsule, 5 Refills, 03/27/20 10:56:00 EST, [place], [place] - [id number], 163, cm, 03/05/20 13:58:00 EDT, Height, 114, kg, 04/19/18 23:58:00 EST, Dry Weight Start Date: 03/27/20 Status: Ordered Electric Neck Shawl Heating Pad Electric Neck Shawl Heating Pad, See Instructions, # 1 each, Refills 0, Tot. Refills 0, Maintenance, Use for chronic neck pain, neck muscle spasms. M54.2 and M62.838, 07/11/19 14:00:00 EST, Compound Start Date: 07/11/19 Status: Ordered Flonase 50 mcg/inh nasal spray 1 sprays, Nares, Both, 2 times a day, # 16 Gm, 5 Refills, Maintenance, 08/16/19 15:53:00 EDT, [place], [place] -, 1 sprays Nares, Both 2 times a day, 163, cm, 07/11/19 13:24:00 EST, Height, 114, kg, 04/19/18 23:58:00 EST, Dry Weight Start Date: 08/16/19 Status: Ordered furosemide 40 mg oral tablet 40 mg, 1, tablet, By Mouth, 2 times a day, # 60 tablet, Refills 3, Tot. Refills 3, Maintenance, 03/27/20 10:58:00 EST, Route to Pharmacy Electronically, [place], [place] - [id number], 163, cm, 03/05/20 13:58:00 EDT, Height, 114, kg, 1... Start Date: 03/27/20 Stop Date: 07/25/20 Status: Ordered guaiFENesin 100 mg/5 mL oral liquid 20 mL = 400 mg, By Mouth, Every 6 hours, PRN Cough and Congestion, with fluids, # 240 mL, 0 Refills, Maintenance, 09/28/19 14:14:00 EDT, [place], [place] -, 163, cm, 07/11/19 13:24:00 EST, Height, 114, kg, 04/19/18 23:58:00 EST, Dry W... Start Date: 09/28/19 Status: Ordered HOME BP MONITOR WITH WRIST [...] OR MILK, # 60 tablet, Refills 0, Tot. Refills 0, Acute, NEEDED FOR SEVERE PAIN, 05/13/20 8:59:00 EST, Route to Pharmacy Electronically, [facility], 163, cm, 03/05/20 13:58:00 EDT, Height Start Date: 05/13/20 Status: Ordered INCONCTINENCE LINERS SUPER ABSORBANT INCONCTINENCE LINERS SUPER ABSORBANT, See Instructions, # 180 each, Refills 11, Tot. Refills 11, Maintenance, DX MIXED INCONTINENCE N39.46 6 PER DAY, 01/18/19 14:01:45 EDT, Compound Start Date: 01/18/19 Status: Ordered Locking Bathtub Grab Bar Locking Bathtub Grab Bar, See Instructions, # 1 each, Refills 0, Tot. Refills 0, Maintenance, DX OSTEOARTHRITIS OF KNEES,CHF,WEAKNESS, RISK FOR FALLS M25.562,M17.0.150.9 DURATION - LIFETIME, 06/17/1913:14:03 EST, Compound Start Date: 06/17/18 Status: Ordered loratadine 10 mg oral tablet See Instructions, TAKE ONE TABLET BY MOUTH DAILY, # 30 tablet, Refills 3, Maintenance, InstructionsReplace Required Details, Route to Pharmacy Electronically, [facility], 163, cm, 03/05/20 13:58:00 EDT, Height, 114, kg, 04/19/18 23:58:00 EST, Start Date: 03/19/20 Status: Ordered loratadine 10 mg oral tablet 10 mg, 1, tablet, By Mouth, Daily, # 30 tablet, Refills 3, Tot. Refills 3, Maintenance, 01/18/20 15:46:00 EDT, Route to Pharmacy Electronically, [facility]/pharmacy #[id number], 163, cm, 07/11/19 13:24:00 EST, Height, 114, kg, 04/19/18 23:58:00 EST, Dry Weight Start Date: 01/18/20 Status: Ordered Narcan 4 mg/0.1 mL nasal [...] EST, Compound Start Date: 03/29/19 Status: Ordered omeprazole 40 mg oral enteric coated capsule 1 capsule = 40 mg, By Mouth, Daily, take on empty stomach, # 30 capsule, 1 Refills, Maintenance, 07/08/20 10:14:00 EST, CR Capsule, [place], [place] - [id number], Partial fill upon patient request if the prescription is for a schedule... Start Date: 07/08/20 Stop Date: 09/06/20 Status: Ordered open faced mask open faced mask, See Instructions, # 1 each, Refills 11, Tot. Refills 11, Maintenance, Codes G47.33, J44.9, 01/31/20 16:26:00 EDT, Compound Start Date: 01/31/20 Status: Ordered OXcarbazepine 150 mg oral tablet 75 mg, 0.5, tablet, By Mouth, 2 times a day, # 60 tablet, Refills 2, Tot. Refills 2, Maintenance, 12/26/19 16:58:00 EDT, Route to Pharmacy Electronically, [facility] [id number], 163, cm, 07/11/19 13:24:00 EST, Height, 114, kg,... Start Date: 12/26/19 Status: Ordered OXcarbazepine 150 mg oral tablet See Instructions, TAKE ONE TABLET BY MOUTH 2 (two) times a day, # 60 tablet, Refills 3, Tot. Refills 3, 03/27/20 10:55:00 EST, Instructions Replace Required Details, Route to Pharmacy Electronically,[facility] [id number], 163... Start Date: 03/27/20 Status: Ordered portable oxygen concentrator portable oxygen concentrator, See Instructions, # 1 each, Refills 0, Tot. Refills 0, Maintenance, Dx severe COPD. Codes J44.9, R09.02, 01/31/20 16:26:00 EDT, Compound Start Date: 01/31/20 Status: Ordered potassium chloride 20 mEq oral tablet, extended release 1 tablet, By Mouth, Daily, # 30 tablet, 5 Refills, Maintenance, 05/13/20 8:59:00 EST, [facility], 163, cm, 03/05/20 13:58:00 EDT, Height Start Date: 05/13/20 Status: Ordered predniSONE 20 mg oral tablet 2 tablet = 40 mg, By Mouth, Daily, for 5 days, with food or milk, # 10 tablet, 0 Refills, Acute 08/05/20 14:23:00 EDT, 07/31/20 14:23:00 EDT, [facility] [id number], Partial fill upon patient request if the prescription is for... Start Date: 07/31/20 Stop Date: 08/05/20 Status: Ordered predniSONE 20 mg oral tablet 2 tablet = 40 mg, By Mouth, Daily in AM, with food or milk home delivery please, # 6 tablet, 0 Refills, Maintenance, 05/30/20 20:00:00 EST, [facility] [place] [id number], 163, cm, 03/05/20 13:58:00 EDT, Height Start Date: 05/30/20 Stop Date: 06/02/20 Status: Ordered pulse dose evaluation pulse dose evaluation, See Instructions, # 1 each, Refills 0, Tot. Refills 0, Maintenance, Pulse Dose Evaluation dx: copd,chf 150.9, j44.9, 01/31/20 16:26:00 EDT, Supply Start Date: 01/31/20 Status: Ordered Shingrix intramuscular injection = 0.5 mL, Intramuscular, Once, repeat dose in 2 to 6 months, # 2 each, 0 Refills, Soft Stop, 01/17/20 11:40:00 EDT, Powder, [facility]/pharmacy #[id number], 0.5 mL Intramuscular Once,Instr:repeat dose in 2 to 6 months, 163, cm, 07/11/19 13:24:00 EST, Height, 114,... Start Date: 01/17/20 Status: Ordered SUMAtriptan 25 mg oral tablet 1 tablet = 25 mg, By Mouth, Daily, PRN for migraine headache, may repeat dose after 2 hours up to amaximum of 2 a day, no more than 2 days a week., # 9 tablet, 0 Refills, Maintenance, 03/19/20 17:18:00 EST, Tablet, [place], [place] -... Start Date: 03/19/20 Status: Ordered tinidazole 500 mg oral tablet 4 tablet = 2,000 mg, By Mouth, Daily, with food, # 8 tablet, 0 Refills, Soft Stop, 03/18/20 14:36:00 EST, [place], [place] - [id number], 163, cm, 03/05/20 13:58:00 EDT, Height, 114, kg, 04/19/18 23:58:00 EST, Dry Weight Start Date: 03/18/20 Stop Date: 03/20/20 Status: Ordered traZODone 150 mg oral tablet 3 tablet = 450 mg, By Mouth, Daily at bedtime, Please d/c order for 300mg qhs. Correct dose 450mg qhs., # 90 tablet, 5 Refills, Maintenance, 03/27/20 10:57:00 EST, [place], [place] -[id number], 163, cm, 03/05/20 13:58:00 EDT, Height,... Start Date: 03/27/20 Status: Ordered triamcinolone 0.025% topical cream 1 applicator, Topically, 3 times a day, PRN eczema, # 80 Gm, 2 Refills, Maintenance, 08/16/19 15:48:00 EDT, [place], [place] -, 1 applicator Topically 3 times a day,PRN:eczema, 163, cm, 07/11/19 13:24:00 EST, Height, 114, kg, 04/19/18... Start Date: 08/16/19 Status: Ordered value series power lift chair [id number] value series power lift chair [id number], See Instructions, # 1 each, Refills 0, Tot. Refills 0, Maintenance, Diagnosis codes: G89.29, M19.90, J44.9, Z74.09, 01/30/20 9:31:00 EDT, Supply Start Date: 01/30/20 Status: Ordered Ventolin HFA 108 mcg/inh inhalation aerosol with adapter 2 puffs, Inhalation, 4 times a day, PRN Wheezing/Shortness of Breath, 90 days supply, # 1 each, 5 Refills, Maintenance, 04/15/20 17:48:00 EST, [place], [place] - [id number], 163, cm,03/05/20 13:58:00 EDT, Height, 114, kg, 04/19/18 23... Start Date: 04/15/20 Status: Ordered verapamil 120 mg oral tablet 1 tablet, By Mouth, 3 times a day, home delivery please., # 90 tablet, 5 Refills, Maintenance, 05/21/20 11:21:00 EST, [place], [place] - [id number], 163, cm, 03/05/20 13:58:00 EDT, Height Start Date: 05/21/20 Status: Ordered Vitamin D3 1000 intl units oral tablet 1 tablet = 1,000 International_Units, By Mouth, Daily, # 90 tablet, 3 Refills, Maintenance, 08/16/19 15:51:00 EDT, [place], [place] -, 163, cm, 07/11/19 13:24:00 EST, Height, 114, kg, 04/19/18 23:58:00 EST, Dry Weight Start Date: 08/16/19 Stop Date: 08/10/20 Status: Ordered wrist blood pressure monitor wrist [...] - Obstructive sleep apnea(Confirmed) 4, 5 Active [facility]/CP-Jo Ann Harvey [phone]/Health [facility] active care coordination(Confirmed) Active 1Health Care Agent: Fatmata Porter, 2along with endo cervical curettage 3bilateral R>L 4titration results reviewed - CPAP at 14 cm H2O. If remained symptomatic then a trial of BiPAP due to hypoventilation component. 5PSG done on 04/04/2007 - severe KIANA, desat to 83%. 42% of night below 90%. Social History Social History Type Response Smoking Status Current every day rut islas; Type: Cigarettes; Interested in cessation: No; Tobacco use times per day: 15 a day; Started at age: 9; entered on: 02/06/14 Sex Female
--- OUTSIDE RECORDS SUMMARY | 2023-09-15 07:36 | XMS_ITS | Continuity of Care Document ---
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 in [place] 4Admin Note: vis given 5Admin Note: vis given 6Result Comment: [02/22/2017] [facility] [id number] 7Admin Note: flulaval vis given vis date 11/16/2011 8Admin Note: VIS GIVEN VIS DATE 12/24/2009 9Admin Note: VIS GIVEN 12/25/08 scottish 10Result Comment: [01/03/2018 Uncharted] ERROR NOT GIVEN 11Result Comment: [id number] exp 06/2009 12Admin Note: vis given Medications [...] EST, Compound Start Date: 07/12/19 Status: Ordered [place] Saline 0.65% nasal solution See Instructions, use twice a day to rinse the nasal passages., # 120 mL, 1 Refills, Maintenance, 10/16/20 11:31:00 EDT, [facility] - [place], [place] - [id number], Partial fill upon patient request if the prescription is for a schedule II opioid... Start Date: 10/16/20 Status: Ordered Biotene Moisturizing Mouth oral spray 1 sprays, By Mouth, 6 times a day, please dispense 2 bottles per month., # 2 each, 5 Refills, Maintenance, 06/11/20 11:38:00 EST, [place], [place] - [id number], 1 sprays By Mouth 6 times a day,Instr:please dispense 2 bottles per month... Start Date: 06/11/20 Status: Ordered Breo Ellipta 200 mcg-25 mcg/inh inhalation powder See Instructions, INHALE 1 PUFF BY MOUTH INTO THE lungs DAILY. rinse mouth and throat after use, # 60 Unknown, 11 Refills, 03/27/20 10:56:00 EST, [place], [place] - [id number], 30, INHALE 1 PUFF BY MOUTH INTO THE lungs DAILY. rinse mo... Start Date: 03/27/20 Status: Ordered Cane See Instructions, # 1 each, Maintenance, DX LEFT KNEE PAIN /ACL TEAR /ARTHRITIS DX CODE M25.562 HT 163 CM WT 123 KG DURATION -LIETIME PATIENTS CANE ASHUTOSH, 01/06/19 8:36:49 EDT, Compound Start Date: 01/06/19 Status: Ordered chantix 1mg tablet 1 tablet, By Mouth, 2 times a day, # 56 tablet, 0 Refills, Acute, 11/04/20 12:42:00 EDT, [facility], 163, cm, 10/16/20 10:59:00 EDT, Height Start Date: 11/04/20 Status: Ordered clonazePAM 0.5 mg oral tablet 2 tablet = 1 mg, By Mouth, 2 times a day, # 120 tablet, 2 Refills, Maintenance, 10/07/20 18:45:00 EDT, [place], [place] - [id number], 163, cm, 09/24/20 13:25:00 EDT, Height Start Date: 10/07/20 Stop Date: 01/05/21 Status: Ordered Daliresp 500 mcg oral tablet 1 tablet, By Mouth, Daily, # 30 tablet, 6 Refills, Maintenance, 10/07/20 18:44:00 EDT, [facility], 163, cm, 09/24/20 13:25:00 EDT, Height Start Date: 10/07/20 Status: Ordered [place] Nasal 0.65% nasal spray 2 sprays, Nares, Both, 2 times a day, for congestion and allergies., # 1 bottle, 11 Refills, Maintenance, 09/29/18 13:31:39 EDT, 2 sprays Nares, Both 2 times a day,Instr:for congestion and allergies. Start Date: 09/29/18 Status: Ordered docusate sodium 100 mg oral capsule 1 capsule, By Mouth, 2 times a day, # 60 each, 5 Refills, Maintenance, 11/04/20 10:05:00 EDT, [facility] [id number], 163, cm, 10/16/20 10:59:00 EDT, Height Start Date: 11/04/20 Status: Ordered Electric Neck Shawl Heating Pad Electric Neck Shawl Heating Pad, See Instructions, # 1 each, Refills 0, Tot. Refills 0, Maintenance, Use for chronic neck pain, neck muscle spasms. M54.2 and M62.838, 07/11/19 14:00:00 EST, Compound Start Date: 07/11/19 Status: Ordered Flonase 50 mcg/inh nasal spray 1 sprays, Nares, Both, 2 times a day, # 16 Gm, 2 Refills, Maintenance, 09/24/20 14:53:00 EDT, [facility] [id number], 1 sprays Nares, Both 2 times a day, 163, cm, 09/24/20 13:25:00 EDT, Height Start Date: 09/24/20 Status: Ordered furosemide 40 mg oral tablet 40 mg, 1, tablet, By Mouth, 2 times a day, # 60 tablet, Refills 5, Tot. Refills 5, Maintenance, 08/05/20 13:27:00 EDT, Route to Pharmacy Electronically, [facility] [id number], 163, cm, 07/31/20 13:11:00 EDT, Height Start Date: 08/05/20 Stop Date: 02/01/21 Status: Ordered HOME BP MONITOR WITH WRIST [...] 05/13/20 8:59:00 EST, Route to Pharmacy Electronically, [facility], 163, cm, 03/05/20 13:58:00 EDT, Height [...] 01/18/20 15:46:00 EDT, Route to Pharmacy Electronically, [facility]/pharmacy #[id number], 163, cm, 07/11/19 13:24:00 EST, Height, 114, kg, 04/19/18 23:58:00 EST, Dry Weight Start Date: 01/18/20 Status: Ordered loratadine 10 mg oral tablet 10 mg, 1, tablet, By Mouth, Daily, # 10 tablet, Refills 0, Tot. Refills 0, Maintenance, 09/24/20 14:52:00 EDT, Route to Pharmacy Electronically, [place], [place] - [id number], Partial fill upon patient request if the prescription is f... Start Date: 09/24/20 Stop Date: 10/04/20 Status: Ordered Narcan 4 mg/0.1 mL nasal [...] take on empty stomach, # 30 capsule, 2 Refills, Maintenance, 11/14/20 12:14:00 EDT, CR Capsule, [place], [place] - [id number], Partial fill upon patient request if the prescription is for a schedule... Start Date: 11/14/20 Stop Date: 02/12/21 Status: Ordered open faced mask open faced mask, See Instructions, # 1 each, Refills 11, Tot. Refills 11, Maintenance, Codes G47.33, J44.9, 01/31/20 16:26:00 EDT, Compound Start Date: 01/31/20 Status: Ordered OXcarbazepine 150 mg oral tablet 1, tablet, By Mouth, 2 times a day, # 60 tablet, Refills 0, Tot. Refills 0, Maintenance, 11/04/20 12:42:00 EDT, Route to Pharmacy Electronically, [facility], 163, cm, 10/16/20 10:59:00 EDT, Height Start Date: 11/04/20 Status: Ordered portable oxygen concentrator portable oxygen concentrator, See Instructions, # 1 each, Refills 0, Tot. Refills 0, Maintenance, Dx severe COPD. Codes J44.9, R09.02, 01/31/20 16:26:00 EDT, Compound Start Date: 01/31/20 Status: Ordered Potassium Chloride (Yec-Zhdv-Wek M20) 20 mEq oral tablet, extended release 1 tablet, By Mouth, Daily, # 30 tablet, 5 Refills, Maintenance, 11/04/20 12:42:00 EDT, [facility], 163, cm, 10/16/20 10:59:00 EDT, Height Start Date: 11/04/20 Status: Ordered pulse dose evaluation pulse dose evaluation, See Instructions, # 1 each, Refills 0, Tot. Refills 0, Maintenance, Pulse Dose Evaluation dx: copd,chf 150.9, j44.9, 01/31/20 16:26:00 EDT, Supply Start Date: 01/31/20 Status: Ordered sertraline 25 mg oral tablet See Instructions, 1 tablet By Mouth Daily for 2 weeks, then increase to 2 tablets per day., # 42 each, 0 Refills, Maintenance, 08/29/20 19:11:00 EDT, [facility] [id number], Partial fill upon patient request if the prescription... Start Date: 08/29/20 Status: Ordered sertraline 50 mg oral tablet 1 tablet = 50 mg, By Mouth, Daily, please d/c 25mg tablet., # 30 tablet, 5 Refills, Maintenance, 09/24/20 14:52:00 EDT, [facility] [id number], Partial fill upon patient request if the prescription is for a schedule II opioid d... Start Date: 09/24/20 Status: Ordered Shingrix intramuscular injection = 0.5 mL, Intramuscular, Once, repeat dose in 2 to 6 months, # 2 each, 0 Refills, Soft Stop, 01/17/20 11:40:00 EDT, Powder, [facility]/pharmacy #[id number], 0.5 mL Intramuscular Once,Instr:repeat dose in 2 to 6 months, 163, cm, 07/11/19 13:24:00 EST, Height, 114,... Start Date: 01/17/20 Status: Ordered traZODone 150 mg oral tablet 3 tablet, By Mouth, Daily at bedtime, # 90 tablet, 0 Refills, Maintenance, 12/03/20 15:05:00 EDT, [facility], 163, cm, 10/16/20 10:59:00 EDT, Height Start Date: 12/03/20 Status: Ordered triamcinolone 0.025% topical cream 1 applicator, Topically, 3 times a day, PRN eczema, # 80 Gm, 2 Refills, Maintenance, 08/16/19 15:48:00 EDT, [place], [place] -, 1 applicator Topically 3 times a day,PRN:eczema, 163, cm, 07/11/19 13:24:00 EST, Height, 114, kg, 04/19/18... Start Date: 08/16/19 Status: Ordered value series power lift chair [id number] value series power lift chair [id number], See Instructions, # 1 each, Refills 0, Tot. Refills 0, Maintenance, Diagnosis codes: G89.29, M19.90, J44.9, Z74.09, 01/30/20 9:31:00 EDT, Supply Start Date: 01/30/20 Status: Ordered Ventolin HFA 108 mcg/inh inhalation aerosol with adapter 2 puffs, Inhalation, 4 times a day, PRN Wheezing/Shortness of Breath, 90 days supply, # 1 each, 5 Refills, Maintenance, 10/07/20 6:45:00 EDT, [place], [place] - [id number], 163, cm, 09/24/20 13:25:00 EDT, Height Start Date: 10/07/20 Status: Ordered Vitamin D3 1000 intl units oral tablet 1 tablet = 1,000 International_Units, By Mouth, Daily, # 90 tablet, 1 Refills, Maintenance, 08/10/20 15:51:00 EDT, [place], [place] - [id number], 163, cm, 07/31/20 13:11:00 EDT, Height Start Date: 08/10/20 Stop Date: 02/06/21 Status: Ordered wrist blood pressure monitor wrist [...] apnea(Confirmed) 4, 5 Active BHN/CCA/CP-Jo Ann Harvey [phone]/Health detention active care coordination(Confirmed) Active 1Health Care Agent: [...]
--- OUTSIDE RECORDS SUMMARY | 2023-09-15 07:36 | XMS_ITS | Continuity of Care Document ---
Author Organization [facility] Address [address] [place] [address]- Care Team Providers Care Audit Lead Name Role Phone Kwame Bolton Primary Care Physician [facility] Date[facility]s): 07/05/20 - 08/04/20 [facility] [address] [place] [id number]- Allergies, Adverse Reactions, Alerts Substance Reaction Severity [...] (oldterm) 08/08/06 Given 1Result Comment: Received at [facility] on [facility] in [place] 2Admin Note: vis given 3Admin Note: vis given 4Result Comment: [02/22/2017] [facility] [id number] 5Admin Note: flulaval vis given vis date 11/16/2011 6Admin Note: VIS GIVEN VIS DATE 12/24/2009 7Admin Note: VIS GIVEN 12/25/08 turkish 8Result Comment: [01/03/2018 Uncharted] ERROR NOT GIVEN 9Result Comment: [id number] exp 06/2009 10Admin Note: vis given Medications [...] capsule, 0 Refills, Maintenance, 03/05/20 14:41:00 EDT, [facility]/pharmacy #[id number], 1 capsule By Mouth Daily,x14 days, 163, cm, 03/05/20 13:58:00 EDT, Height, 114, kg, 04/19/18 23:58:00 EST, Dry Weight Start Date: 03/05/20 Stop Date: 03/19/20 Status: Ordered Azithromycin 5 Day Dose Pack 250 mg oral tablet See Instructions, as directed on package labeling, # 6 each, 0 Refills, Maintenance, 07/31/20 14:22:00 EDT, [facility] [id number], Partial fill upon patient request if the prescription is for a schedule II opioid drug., 163, c... Start Date: 07/31/20 Status: Ordered Biotene Moisturizing Mouth oral spray 1 sprays, By Mouth, 6 times a day, please dispense 2 bottles per month., # 2 each, 5 Refills, Maintenance, 06/11/20 11:38:00 EST, [facility] [id number], 1 sprays By Mouth 6 times a day,Instr:please dispense 2 bottles per month... Start Date: 06/11/20 Status: Ordered Breo Ellipta 200 mcg-25 mcg/inh inhalation powder 1 puffs, Inhalation, Daily, Rinse mouth well after each use, # 1 each, 5 Refills, Maintenance, 08/16/19 15:52:00 EDT, Powder, [place], [place] -, 1 puffs Inhalation Daily,Instr:[place] well after each use, 163, cm, 07/11/19 13:24:... Start Date: 08/16/19 Status: Ordered Breo Ellipta 200 mcg-25 mcg/inh inhalation powder See Instructions, INHALE 1 PUFF BY MOUTH INTO THE lungs DAILY. rinse mouth and throat after use, # 60 Unknown, 11 Refills, 03/27/20 10:56:00 EST, [facility] [id number], 30, INHALE 1 PUFF BY MOUTH INTO [...] tablet, 3 Refills, Maintenance, 03/27/20 10:55:00 EST, [facility] [id number], 163, cm, 03/05/20 13:58:00 EDT, Height, 114, kg, 04/19/18 23:58:00 EST, Dry Weight Start Date: 03/27/20 Status: Ordered clonazePAM 0.5 mg oral tablet 2 tablet = 1 mg, By Mouth, 2 times a day, # 120 tablet, 2 Refills, Maintenance, 07/09/20 16:30:00 EST, [place], [place] - [id number], 163, cm, 07/08/20 9:27:00 EST, Height Start Date: 07/09/20 Stop Date: 10/07/20 Status: Ordered Daliresp 500 mcg oral tablet See Instructions, 1 tablet By Mouth Daily, # 30 each, 6 Refills, Maintenance, 08/16/19 15:51:00 EDT, [place], [place] -, 163, cm, 07/11/19 13:24:00 EST, Height, 114, kg, 04/19/18 23:58:00 EST, Dry Weight Start Date: 08/16/19 Status: Ordered Daliresp 500 mcg oral tablet See Instructions, TAKE ONE TABLET BY MOUTH DAILY, # 30 tablet, 6 Refills, Maintenance, [facility], 163, cm, 03/05/20 13:58:00 EDT, Height, [...] 12/15/19 10:10:00 EDT, Route to Pharmacy Electronically, [facility] [id number], 163, cm, 07/11/19 13:24:00 EST, Height, 114, kg... Start Date: 12/15/19 Status: Ordered docusate sodium 100 mg oral capsule See Instructions, TAKE ONE CAPSULE BY MOUTH 2 (two) times a day, # 60 capsule, 5 Refills, 03/27/20 10:56:00 EST, [place], [place] - [id number], 163, cm, 03/05/20 13:58:00 EDT, Height, 114, [...] Gm, 5 Refills, Maintenance, 08/16/19 15:53:00 EDT, [place], [place] -, 1 sprays Nares, Both 2 times a day, 163, cm, 07/11/19 13:24:00 EST, Height, 114, kg, 04/19/18 23:58:00 EST, Dry Weight Start Date: 08/16/19 Status: Ordered furosemide 40 mg oral tablet 40 mg, 1, tablet, By Mouth, 2 times a day, # 60 tablet, Refills 3, Tot. Refills 3, Maintenance, 03/27/20 10:58:00 EST, Route to Pharmacy Electronically, [place], [place] - [id number], 163, cm, 03/05/20 13:58:00 EDT, Height, 114, kg, 1... Start Date: 03/27/20 Stop Date: 07/25/20 Status: Ordered guaiFENesin 100 mg/5 mL oral liquid 20 mL = 400 mg, By Mouth, Every 6 hours, PRN Cough and Congestion, with fluids, # 240 mL, 0 Refills, Maintenance, 09/28/19 14:14:00 EDT, [place], [place] -, 163, cm, 07/11/19 13:24:00 EST, [...] 01/18/20 15:46:00 EDT, Route to Pharmacy Electronically, [facility]/pharmacy #[id number], 163, cm, 07/11/19 13:24:00 [...] Refills, Maintenance, 07/08/20 10:14:00 EST, CR Capsule, [place], [place] - [id number], Partial fill upon patient request if the [...] 12/26/19 16:58:00 EDT, Route to Pharmacy Electronically, [facility] [id number], 163, cm, 07/11/19 13:24:00 EST, Height, 114, kg,... Start Date: 12/26/19 Status: Ordered OXcarbazepine 150 mg oral tablet See Instructions, TAKE ONE TABLET BY MOUTH 2 (two) times a day, # 60 tablet, Refills 3, Tot. Refills 3, 03/27/20 10:55:00 EST, Instructions Replace Required Details, Route to Pharmacy Electronically,[facility] [id number], 163... Start Date: 03/27/20 Status: Ordered portable oxygen concentrator portable oxygen concentrator, See Instructions, # 1 each, Refills 0, Tot. Refills 0, Maintenance, Dx severe COPD. Codes J44.9, R09.02, 01/31/20 16:26:00 EDT, Compound Start Date: 01/31/20 Status: Ordered potassium chloride 20 mEq oral tablet, extended release 1 tablet, By Mouth, Daily, # 30 tablet, 5 Refills, Maintenance, 05/13/20 8:59:00 EST, [facility], 163, cm, 03/05/20 13:58:00 EDT, Height Start Date: 05/13/20 Status: Ordered predniSONE 20 mg oral tablet 2 tablet = 40 mg, By Mouth, Daily, for 5 days, with food or milk, # 10 tablet, 0 Refills, Acute 08/05/20 14:23:00 EDT, 07/31/20 14:23:00 EDT, [facility] [id number], Partial fill upon patient request if the prescription is for... Start Date: 07/31/20 Stop Date: 08/05/20 Status: Ordered predniSONE 20 mg oral tablet 2 tablet = 40 mg, By Mouth, Daily in AM, with food or milk home delivery please, # 6 tablet, 0 Refills, Maintenance, 05/30/20 20:00:00 EST, [facility] [id number], 163, cm, 10/20/20 13:58:00 EDT, Height Start Date: 05/30/20 Stop [...] Refills, Soft Stop, 01/17/20 11:40:00 EDT, Powder, [facility]/pharmacy #[id number], 0.5 mL Intramuscular Once,Instr:repeat [...] 0 Refills, Maintenance, 03/19/20 17:18:00 EST, Tablet, [place], [place] -... Start Date: 03/19/20 Status: Ordered tinidazole 500 mg oral tablet 4 tablet = 2,000 mg, By Mouth, Daily, with food, # 8 tablet, 0 Refills, Soft Stop, 03/18/20 14:36:00 EST, [place], [place] - [id number], 163, cm, 03/05/20 13:58:00 EDT, Height, 114, kg, 04/19/18 23:58:00 EST, Dry Weight Start Date: 03/18/20 Stop Date: 03/20/20 Status: Ordered traZODone 150 mg oral tablet 3 tablet = 450 mg, By Mouth, Daily at bedtime, Please d/c order for 300mg qhs. Correct dose 450mg qhs., # 90 tablet, 5 Refills, Maintenance, 03/27/20 10:57:00 EST, [place], [place] -[id number], 163, cm, 03/05/20 13:58:00 EDT, Height,... Start Date: 03/27/20 Status: Ordered triamcinolone 0.025% topical cream 1 applicator, Topically, 3 times a day, PRN eczema, # 80 Gm, 2 Refills, Maintenance, 08/16/19 15:48:00 EDT, [place], [place] -, 1 applicator Topically 3 times a day,PRN:eczema, 163, cm, 07/11/19 13:24:00 EST, Height, 114, kg, 04/19/18... Start Date: 08/16/19 Status: Ordered value series power lift chair [id number] value series power lift chair [id number], See Instructions, # 1 each, Refills 0, Tot. Refills 0, Maintenance, Diagnosis codes: G89.29, M19.90, J44.9, Z74.09, 01/30/20 9:31:00 EDT, Supply Start Date: 01/30/20 Status: Ordered Ventolin HFA 108 mcg/inh inhalation aerosol with adapter 2 puffs, Inhalation, 4 times a day, PRN Wheezing/Shortness of Breath, 90 days supply, # 1 each, 5 Refills, Maintenance, 04/15/20 17:48:00 EST, [place], [place] - [id number], 163, cm,03/05/20 13:58:00 EDT, Height, 114, kg, 04/19/18 23... Start Date: 04/15/20 Status: Ordered verapamil 120 mg oral tablet 1 tablet, By Mouth, 3 times a day, home delivery please., # 90 tablet, 5 Refills, Maintenance, 05/21/20 11:21:00 EST, [place], [place] - [id number], 163, cm, 03/05/20 13:58:00 EDT, Height Start Date: 05/21/20 Status: Ordered Vitamin D3 1000 intl units oral tablet 1 tablet = 1,000 International_Units, By Mouth, Daily, # 90 tablet, 3 Refills, Maintenance, 08/16/19 15:51:00 EDT, [place], [place] -, 163, cm, 07/11/19 13:24:00 EST, [...] apnea(Confirmed) 4, 5 Active BHN/CCA/CP-Jo Ann Harvey [phone]/Health [facility] active care coordination(Confirmed) Active 1Health Care Agent: [...]
--- OUTSIDE RECORDS SUMMARY | 2023-09-15 07:36 | XMS_ITS | Continuity of Care Document ---
Author Organization [facility] ([facility] Adult Medicine Address [address] [place] [address]- Care Team Providers Care Outdoor Adventure Instructor Name Role Phone Kwame Bolton Primary Care Physician [facility]): [facility] - 07/26/19 [facility] Adult Medicine [address] [place] [address]- [facility] Attending Physician: Not on Staff, Attending MD Allergies, Adverse Reactions, Alerts Substance Reaction Severity Status Lobster throat tightening; vomiting Active Shrimp throat tightening; vomiting Active Other Environmental Allergy Seasonal Allergies Active FIRST Metronidazole 1 vomiting, diarrhea, dyspnea Pers istent Moderate Active 1VOMITING DIARRHEA,SEVERE DYPNEA Immunizations Given and Recorded Vaccine Date Status Refusal Reason influenza virus vaccine, inactivated 02/01/19 Give n influenza virus vaccine, inactivated 03/09/18 Give n influenza virus vaccine, inactivated 1 02/22/17 Gi cecile influenza virus vaccine, inactivated 03/09/16 Give n influenza virus vaccine, inactivated 03/08/15 Give n influenza virus vaccine, inactivated 02/27/14 Give n influenza virus vaccine, inactivated 07/20/13 Give n influenza virus vaccine, inactivated 2 04/19/12 Gi cecile influenza virus vaccine, inactivated 3 03/11/10 Gi cecile influenza virus vaccine, inactivated 4 02/26/09 Gi cecile tetanus-diphtheria toxoids (Td) 09/27/18 Given pneumococcal 23-valent vaccine 5 01/03/18 Given pneumococcal 13-valent vaccine 02/10/16 Given influ virus vac, H1N1, inactive(oldterm) 6 05/17/09 Given Tet/Diphth/Acel, Pertussis (oldterm) 7 05/30/08 Gi cecile Influenza Virus Vaccine (oldterm) 8 03/14/08 Given Influenza Virus Vaccine (oldterm) 9 04/01/07 Given Pneumococcal Poly (PPV23) (oldterm) 08/08/06 Given Pneumococcal Vaccine (oldterm) 08/08/06 Given 1Result Comment: [02/22/2017] [facility] [id number] 2Admin Note: flulaval vis given vis date 11/16/2011 3Admin Note: VIS GIVEN VIS DATE 12/24/2009 4Admin Note: VIS GIVEN 12/25/08 portuguese 5Result Comment: [01/03/2018 Uncharted] ERROR NOT GIVEN 6Result Comment: [id number] exp 06/2009 7Admin Note: vis given 8Admin Note: vis given 9Admin Note: vis given Medications Acapella Device Acapella Device, See Instructions, # 1 each, Refills 3, Tot. Refills 3, Maintenance, COPD CHF 150.9J44.9, 07/12/19 11:29:00 EST, Compound Start Date: 07/12/19 Status: Ordered Biotene Moisturizing Mouth oral spray 1 sprays, By Mouth, 6 times a day, # 2 bottle, 5 Refills, Maintenance, 01/18/19 15:21:00 EDT, 1 sprays By Mouth 6 times a day Start Date: 01/18/19 Status: Ordered Breo Ellipta 200 mcg-25 mcg/inh inhalation powder 1 puffs, Inhalation, Daily, Rinse mouth well after each use, # 1 each, 5 Refills, Maintenance, 03/24/19 10:42:05 EST, Powder, 1 puffs Inhalation Daily,Instr:Rinse mouth well after each use Start Date: 03/24/19 Status: Ordered Cane See Instructions, # 1 each, Maintenance, DX LEFT KNEE PAIN /ACL TEAR /ARTHRITIS DX CODE M25.562 HT 163 CM WT 123 KG DURATION -LIETIME PATIENTS VERA ASHUTOSH, 01/06/19 8:36:49 EDT, Compound Start Date: 01/06/19 Status: Ordered chantix 1mg tablet 1 tablet = 1 mg, By Mouth, 2 times a day, for 30 days, # 60 tablet, 5 Refills, Acute 09/20/19 10:41:50 EDT, 03/24/19 10:41:50 EST Start Date: 03/24/19 Stop Date: 09/20/19 Status: Ordered clonazePAM 0.5 mg oral tablet 2 tablet = 1 mg, By Mouth, 2 times a day, dose increased to 2 tabs bid 05/2018, # 120 tablet, 2 Refills, Maintenance, 07/11/19 13:51:00 EST, [facility]/pharmacy #[id number], 163, cm, 07/11/19 13:24:00 EST, Height,114, kg, 04/19/18 23:58:00 EST, Dry Weight Start Date: 07/11/19 Stop Date: 10/09/19 Status: Ordered Daliresp 500 mcg oral tablet See Instructions, 1 tablet By Mouth Daily, # 30 each, 6 Refills, Maintenance, 03/24/19 10:43:52 EST Start Date: 03/24/19 Status: Ordered Deep Sea Nasal 0.65% nasal [...] capsule 100 mg, 1, capsule, By Mouth, Daily, # 30 capsule, Refills 5, Tot. Refills 5, Maintenance, 05/01/1910:28:45 EST, Route to Pharmacy Electronically, [facility], 163, cm, 04/24/19 13:17:53 EST, Height, 114, kg, 04/19/18 23:58:35... Start Date: 05/01/19 Status: Ordered Electric Neck Shawl Heating Pad Electric Neck Shawl Heating Pad, See Instructions, # 1 each, Refills 0, Tot. Refills 0, Maintenance, Use for chronic neck pain, neck muscle spasms. M54.2 and M62.838, 07/11/19 14:00:00 EST, Compound Start Date: 07/11/19 Status: Ordered Flonase 50 mcg/inh nasal spray 1 sprays, Nares, Both, 2 times a day, # 16 Gm, 5 Refills, Maintenance, 03/24/19 10:41:38 EST, 1 sprays Nares, Both 2 times a day Start Date: 03/24/19 Status: Ordered furosemide 40 mg oral tablet 40 mg, 1, tablet, By Mouth, 2 times a day, # 60 tablet, Refills 5, Tot. Refills 5, Maintenance, 05/01/19 17:32:03 EST, Route to Pharmacy Electronically, [facility]-, 163, cm, 04/24/19 13:17:53 EST, Height, 114, kg, 04/19/18 23:... Start Date: 05/01/19 Stop Date: 10/28/19 Status: Ordered Hospital Bed See Instructions, # 1 each, Maintenance, DX: COPD,ASTHMA,KIANA,CERVICAL DISC DISEASES, CHRONIC PAIN JJ44.9,G47.33 M50.9MG89.29 DURATION- LIFETIME, 03/29/19 16:31:32 EST, Compound Start Date: 03/29/19 Status: Ordered ibuprofen 800 mg oral tablet 800 mg, 1, tablet, By Mouth, Every 8 hours, PRN, with food or milk, # 90 tablet, Refills 2, Tot. Refills 2, Maintenance, Pain , Severe, 07/11/19 13:53:00 EST, Route to Pharmacy Electronically, [facility]-, 163, cm, 07/11/19 13:... Start Date: 07/11/19 Status: Ordered INCONCTINENCE LINERS SUPER ABSORBANT INCONCTINENCE LINERS SUPER ABSORBANT, See Instructions, # 180 each, Refills 11, Tot. Refills 11, Maintenance, DX MIXED INCONTINENCE N39.46 6 PER DAY, 01/18/19 14:01:45 EDT, Compound Start Date: 01/18/19 Status: Ordered Inogen ONE G5 portable oxygen Inogen ONE G5 portable oxygen, See Instructions, # 1 units, Refills 0, Tot. Refills 0, Maintenance,Dx severe COPD. Codes J44.9, R09.02, 10/17/18 9:39:39 EDT, Compound Start Date: 10/17/18 Status: Ordered Locking Bathtub Grab Bar Locking Bathtub Grab Bar, See Instructions, # 1 each, Refills 0, Tot. Refills 0, Maintenance, DX OSTEOARTHRITIS OF KNEES,CHF,WEAKNESS, RISK FOR FALLS M25.562,M17.0.150.9 DURATION - LIFETIME, 06/17/1913:14:03 EST, Compound Start Date: 06/17/18 Status: Ordered Narcan 4 mg/0.1 mL nasal [...] EST, Compound Start Date: 03/29/19 Status: Ordered Oxy mask Oxy mask, See Instructions, # 1 units, Refills 0, Tot. Refills 0, Maintenance, Codes G47.33, J44.9,10/17/18 11:59:21 EDT, Compound Start Date: 10/17/18 Status: Ordered PORTABLE OXYGEN CONCENTRATOR PORTABLE OXYGEN CONCENTRATOR, See Instructions, # 1 each, Refills 0, Tot. Refills 0, Maintenance, 02 2L VIA NASAL CANNULA DX:COPD CHF J45.909 I50.9 DURATION LIFETIME, 04/24/19 13:08:46 EST, Compound Start Date: 04/24/19 Status: Ordered potassium chloride 20 mEq oral tablet, extended release 1 tablet = 20 mEq, By Mouth, Daily, # 30 tablet, 5 Refills, Maintenance, 05/18/19 15:52:00 EST, [facility]/pharmacy #[id number], 163, cm, 04/24/19 13:17:00 EST, Height, 114, kg, 04/19/18 23:58:00 EST, Dry Weight Start Date: 05/18/19 Status: Ordered tiZANidine 4 mg oral capsule 1 capsule = 4 mg, By Mouth, 3 times a day, use for severe muscle spasm, # 30 capsule, 3 Refills, Maintenance, 06/30/19 14:44:00 EST, [facility] #[id number], 163, cm, 05/25/19 10:43:00 EST, Height, 114, kg, 04/19/18 23:58:00 EST, Dry Weight Start Date: 06/30/19 Stop Date: 08/09/19 Status: Ordered traZODone 150 mg oral tablet 3 tablet = 450 mg, By Mouth, Daily at bedtime, Please d/c order for 300mg qhs. Correct dose 450mg qhs., # 90 tablet, 5 Refills, Maintenance, 03/24/19 10:42:37 EST Start Date: 03/24/19 Status: Ordered triamcinolone 0.025% topical cream 1 applicator, Topically, 3 times a day, PRN eczema, # 80 Gm, 2 Refills, Maintenance, 07/11/19 13:56:00 EST, [id number], 1 applicator Topically 3 times a day,PRN:eczema, 163, cm, 07/11/19 13:24:00 EST, Height, 114, kg, 04/19/18 23:58:00 EST, . Start Date: 07/11/19 Status: Ordered Ventolin HFA 108 mcg/inh inhalation aerosol with adapter 2 puffs, Inhalation, 4 times a day, PRN Wheezing/Shortness of Breath, 90 days supply, # 1 each, 5 Refills, Maintenance, 03/24/19 10:41:15 EST Start Date: 03/24/19 Status: Ordered Vitamin D3 1000 intl units oral tablet 1 tablet = 1,000 International_Units, By Mouth, Daily, # 90 tablet, 3 Refills, Maintenance, 03/24/19 10:43:01 EST Start Date: 03/24/19 Stop Date: 03/18/20 Status: Ordered Problem List Condition Effective Dates [...] - Obstructive sleep apnea(Confirmed) 4, 5 Active *BHN/CCA/BHCP/LCC-Ramesh Braxton, (Confirmed) Active 1Health Care Agent: Fatmata Porter, 2along with endo cervical curettage 3bilateral R>L 4titration results reviewed - CPAP at 14 cm H2O. If remained symptomatic then a trial of BiPAP due to hypoventilation component. 5PSG done on 04/04/2007 - severe KIANA, desat to 83%. 42% of night below 90%. Social History Social History Type Response Smoking Status Current every day sm oknelia; Type: Cigarettes; Interested in cessation: No; Tobacco use times per day: 15 a day; Started at age: 9; entered on: 02/06/14 Sex Female
--- OUTSIDE RECORDS SUMMARY | 2023-09-15 07:36 | XMS_ITS | Continuity of Care Document ---
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 Role Phone Kwame Bolton Primary Care Physician [facility]): 07[facility]22 - 08/20/22 [facility] Adult [facility] [address] [place] [id number] Allergies, Adverse Reactions, Alerts Substance Reaction Severity Status Lobster throat tightening; vomiting Active Shrimp throat tightening; vomiting Active Other Environmental Allergy Seasonal Allergies Active FIRST Metronidazole 1 vomiting, diarrhea, dyspnea Pers istent Moderate Active 1VOMITING DIARRHEA,SEVERE DYPNEA Immunizations Given and Recorded Vaccine Date Status Refusal Reason SARS-CoV-2 (COVID-19) mRNA-1273 vaccine 1 03/02/22 Recorded SARS-CoV-2 (COVID-19) mRNA-1273 vaccine 03/24/21 R ecorded SARS-CoV-2 (COVID-19) mRNA-1273 vaccine 2 08/22/20 Recorded SARS-CoV-2 (COVID-19) mRNA-1273 vaccine 3 07/24/20 Recorded influenza virus vaccine, inactivated 03/02/22 Casey rded influenza virus vaccine, inactivated 03/24/21 Casey rded influenza virus vaccine, inactivated 02/01/19 Give n [...] virus vaccine, inactivated 7 02/26/09 Gi cecile Influenza Virus Vaccine (oldterm) 02/23/20 Recorde d Influenza Virus Vaccine (oldterm) 8 02/23/20 Recor ded Influenza Virus Vaccine (oldterm) 9 03/14/08 Given Influenza Virus Vaccine (oldterm) 10 04/01/07 Give n tetanus-diphtheria toxoids (Td) 09/27/18 Given pneumococcal 23-valent vaccine 11 01/03/18 Given pneumococcal 13-valent vaccine 02/10/16 Given influ virus vac, H1N1, inactive(oldterm) 12 05/17/09 Given Tet/Diphth/Acel, Pertussis (oldterm) 13 05/30/08 G iven Pneumococcal Poly (PPV23) (oldterm) 08/08/06 Given Pneumococcal Vaccine (oldterm) 08/08/06 Given 1Result Comment: new booster 2Result Comment: dose 2 3Result Comment: dose 1 4Result Comment: [02/22/2017] [facility] [id number] 5Admin Note: flulaval vis given vis date 11/16/2011 6Admin Note: VIS GIVEN VIS DATE 12/24/2009 7Admin Note: VIS GIVEN 12/25/08 iraqi 8Result Comment: Received at [facility] on [facility] [place] 9Admin Note: vis given 10Admin Note: vis given 11Result Comment: [01/03/2018 Uncharted] ERROR NOT GIVEN 12Result Comment: [id number] exp 06/2009 13Admin Note: vis given Medications 02 2L via [...] 150.9J44.9, 07/12/19 11:29:00 EST, Compound Start Date: 2/26/20 Status: Ordered B-Complex with B-12 oral tablet See Instructions, TAKE ONE TABLET BY MOUTH DAILY WITH FOOD, # 90 tablet, 3 Refills, [facility], 90, TAKE ONE TABLET BY MOUTH DAILY WITH FOOD, 163, cm, 09/26/21 13:20:00 EDT, Height Start Date: 12/15/21 Status: Ordered Breo Ellipta 200 mcg-25 mcg/inh inhalation powder 1 puffs, Inhalation, Daily, rinse mouth and throat after use, # 60 Unknown, 5 Refills, Maintenance,02/18/22 11:21:00 EDT, [facility], 30, INHALE 1 PUFF BY MOUTH INTO THE lungs DAILY. rinse mouth and throat after use, 163, cm, 12/29/21 9:41:00 ED... Start Date: 02/18/22 Status: Ordered busPIRone 10 mg oral tablet 10 mg, 1, tablet, By Mouth, 3 times a day, for anxiety, # 90 tablet, Refills 0, Tot. Refills 0, Maintenance, 03/03/22 14:49:00 EDT, Route to Pharmacy Electronically, [facility] [phone], Partial fill upon patient request if... Start Date: 03/03/22 Status: Ordered Cane See Instructions, # 1 each, Maintenance, DX LEFT KNEE PAIN /ACL TEAR /ARTHRITIS DX CODE M25.562 HT 163 CM WT 123 KG DURATION -LIETIME PATIENTS VERA BOYKIN, 01/06/19 8:36:49 EDT, Compound Start Date: 01/06/19 Status: Ordered Cleocin T 1% lotion See Instructions, Topically 2 times a day to affected area of face and nose., # 60 mL, 1 Refills, Maintenance, 03/03/22 14:52:00 EDT, [facility] [phone], Partial fill uponpatient request if the prescription is for a schedu... Start Date: 03/03/22 Status: Ordered Comfort EZ Pen [place] 32 gauge x 5/32 Comfort EZ Pen [place] 32 gauge x 5/32 , See Instructions, # 50 Unknown, 11 Refills, USE DAILY WITHvictoza injection, 163, cm, 03/25/21 9:16:00 EST, Height Start Date: 04/01/21 Status: Ordered Comfort EZ Pen [place] 32 gauge x 5/32 Comfort EZ Pen [place] 32 gauge x 5/32 , See Instructions, # 50 Unknown, 0 Refills, USE DAILY WITH victoza injection, 163, cm, 12/18/20 9:01:00 EDT, Height Start Date: 02/05/21 Status: Ordered Comfort EZ Pen [place] 32 gauge x 5/32 Comfort EZ Pen [place] 32 gauge x 5/32 , See Instructions, # 50 Unknown, 11 Refills, Maintenance, USE DAILY WITH victoza injection, 06/04/22 11:52:00 EST, 164, cm, 06/02/22 16:10:00 EST, Height, 122,kg, 05/02/22 15:20:00 EST, Dry Weight Start Date: 06/04/22 Status: Ordered D3 1000 intl units (25 mcg) oral tablet 1 tablet, By Mouth, Daily, # 30 tablet, 5 Refills, 06/24/22 11:25:00 EST, [place], [place] - [id number], 164, cm, 06/02/22 16:10:00 EST, Height, 122, kg, 05/02/22 15:20:00 EST, Dry Weight Start Date: 06/24/22 Status: Ordered Daliresp 500 mcg oral tablet 1 tablet, By Mouth, Daily, # 30 tablet, 6 Refills, [facility], 163, cm, 09/26/21 13:20:00 EDT,Height Start Date: 11/14/21 Status: Ordered docusate sodium 100 mg oral capsule 1 capsule, By Mouth, Daily, # 60 each, 5 Refills, Maintenance, 02/18/22 11:21:00 EDT, [facility], 163, cm, 12/29/21 9:41:00 EDT, Height Start Date: 02/18/22 Status: Ordered Electric Neck Shawl Heating Pad Electric Neck Shawl Heating Pad, See Instructions, # 1 each, Refills 0, Tot. Refills 0, Maintenance, Use for chronic neck pain, neck muscle spasms. M54.2 and M62.838, 07/11/19 14:00:00 EST, Compound Start Date: 07/11/19 Status: Ordered ferrous gluconate 324 mg oral tablet 1 tablet = 324 mg, By Mouth, Every other day, please dispense in a separate bottle, # 15 tablet, 1 Refills, Maintenance, 08/18/22 11:20:00 EDT, [facility], [facility] [phone], please dispense in separate bottle., 164, cm, 07/21/22 8:59... Start Date: 08/18/22 Status: Ordered Flonase 50 mcg/inh nasal spray 1 sprays, Nares, Both, Daily, # 16 Gm, 0 Refills, Maintenance, 04/13/22 12:06:00 EST, [place], [facility], [facility] [phone], Partial fill upon patient request if the prescription is for a schedule II opioid drug., 1 sprays Nares, Both... Start Date: 04/13/22 Stop Date: 05/13/22 Status: Ordered furosemide 40 mg oral tablet 1, tablet, By Mouth, 2 times a day, # 60 tablet, Refills 5, Maintenance, 03/20/22 11:36:00 EDT, Route to Pharmacy Electronically, [facility], 163, cm, 03/03/22 9:51:00 EDT, Height Start Date: 03/20/22 Status: Ordered guaiFENesin 100 mg/5 mL oral liquid 20 mL = 400 mg, By Mouth, 2 times a day, for congestion, cough. with fluids, # 240 mL, 0 Refills, Maintenance, 04/14/21 8:42:00 EST, [facility], [facility] [id number], Partial fill upon patient request if the [...] FOOD OR MILK, # 60 tablet, Refills 3, Tot. Refills 3, Maintenance, NEEDED FOR SEVERE PAIN, 08/18/22 11:21:00 EDT, Route to Pharmacy Electronically, [facility] - [place], [place] - [phone], 1... Start Date: 08/18/22 Status: Ordered ibuprofen 800 mg oral tablet 1, tablet, By Mouth, Every 8 hours, PRN, TAKE WITH FOOD OR MILK, # 60 tablet, Refills 0, Maintenance, NEEDED FOR SEVERE PAIN, 02/18/22 11:21:00 EDT, Route to Pharmacy Electronically, [facility], 163, cm, 12/29/21 9:41:00 EDT, [...] By Mouth, Daily, # 30 tablet, Refills 5, Maintenance, 07/23/22 10:02:00 EST, Route to Pharmacy Electronically, [facility], 164, cm, 07/21/22 8:59:00 EST, Height, 122, kg, 05/02/22 15:20:00 EST, Dry Weight Start Date: 07/23/22 Status: Ordered magnesium gluconate 250 mg oral tablet 1 tablet = 250 mg, By Mouth, 2 times a day, # 60 tablet, 2 Refills, Maintenance, 04/27/22 11:27:00 EST, [place], [place] - [id number], Partial fill upon patient request if the prescription is for a schedule II opioid drug., 1 tablet B... Start Date: 04/27/22 Status: Ordered Narcan 4 mg/0.1 mL nasal [...] Start Date: 01/31/20 Status: Ordered Potassium Chloride (Ucf-Hoqx-Efr M20) 20 mEq oral tablet, extended release 1 tablet, By Mouth, Daily, # 30 tablet, 6 Refills, Maintenance, 05/25/22 17:29:00 EST, [facility], 164, cm, 05/02/22 15:20:00 EST, Height, 122, kg, 05/02/22 15:20:00 EST, Dry Weight Start Date: 05/25/22 Status: Ordered pulse dose evaluation pulse dose evaluation, See Instructions, # 1 each, Refills 0, Tot. Refills 0, Maintenance, Pulse Dose Evaluation dx: copd,chf 150.9, j44.9, 01/31/20 16:26:00 EDT, Supply Start Date: 01/31/20 Status: Ordered roflumilast 500 mcg tablet roflumilast 500 mcg tablet, 1, tablet, By Mouth, Daily, # 30 tablet, 6 Refills, Maintenance, 05/25/22 17:29:00 EST, 164, cm, 05/02/22 15:20:00 EST, Height, 122, kg, 05/02/22 15:20:00 EST, Dry Weight Start Date: 05/25/22 Status: Ordered seat cushion for coccygeal pain seat cushion for coccygeal pain, See Instructions, # 1 each, Refills 0, Tot. Refills 0, Maintenance, Dx code: M53.3 Duration: lifetime, 02/27/21 19:05:00 EDT, Supply Start Date: 02/27/21 Status: Ordered sertraline 100 mg oral tablet 1.5 tablet = 150 mg, By Mouth, Daily, in bubble pack please dose increase to 150mg daily 08/18/22, # 45 tablet, 5 Refills, Maintenance, 08/18/22 11:22:00 EDT, [place], [place] - [phone], please dispense in bubble pack. dose increase... Start Date: 08/18/22 Status: Ordered square orthopedic pillow with central square depression and surrounding bolster square orthopedic pillow with central square depression and surrounding bolster, See Instructions, # 1 each, Refills 0, Tot. Refills 0, Maintenance, Product number [id number] Dx codes: M54.2 Duration: lifetime, 07/21/22 14:25:00 EST, Supply Start Date: 07/21/22 Status: Ordered traZODone 150 mg oral tablet 3 tablet, By Mouth, Daily at bedtime, # 270 tablet, 6 Refills, [facility], 163, cm, 09/26/21 13:20:00 EDT, Height Start Date: 11/14/21 Status: Ordered value series power lift chair [id number] value series power lift chair [id number], See Instructions, # 1 each, Refills 0, Tot. Refills 0, Maintenance, Diagnosis codes: G89.29, M19.90, J44.9, Z74.09, 01/30/20 9:31:00 EDT, Supply Start Date: 01/30/20 Status: Ordered varenicline 1mg tablet 1 tablet, By Mouth, 2 times a day, # 56 tablet, 5 Refills, Physician Stop 06/24/23 11:28:00 EST, 06/24/22 11:30:00 EST, [place], [place] - [phone], 164, cm, 06/02/22 16:10:00 EST,Height, 122, kg, 05/02/22 15:20:00 EST, Dry Weight Start Date: 06/24/22 Stop Date: 06/24/23 Status: Ordered Ventolin HFA 108 mcg/inh inhalation aerosol with adapter 2 puffs, Inhalation, 4 times a day, PRN Wheezing/Shortness of Breath, 90 days supply, # 1 each, 5 Refills, Maintenance, 04/14/22 16:26:00 EST, [facility] [id number], 163, cm,04/13/22 11:52:00 EST, Height Start Date: 04/14/22 Status: Ordered Victoza 18 mg/3 mL subcutaneous solution = 1.2 mg, Subcutaneous Infusion, Daily, # 15 mL, 11 Refills, Maintenance, 06/02/22 16:53:00 [facility], [place], [place] - [phone], Partial fill upon patient request if the prescription is for a schedule II opioid drug., 164, cm, 06/02/22... Start Date: 06/02/22 Status: Ordered wrist blood pressure monitor wrist [...] 4, 5 Confirmed Active BHN/CCA/CP-Jo Ann Harvey [phone]/Health intermediate active care coordination Confirmed Active Severe obesity Confirmed Active 1Health Care Agent: Tana Porter, 2along with endo cervical curettage 3bilateral [...] 02/06/14 Sex Female Patient Care team information Care Team Personnel Name: Kwame Bolton Position: [facility] PCO Associate Professional Member Role: PCP Address: Address: [address] [place] [address] [place] [address]- Name: Perri Perry RN Position: [facility] RN Member Role: Primary Care Nurse Name: Alicia Vallecillo RN Position: [facility] RN Member Role: Primary Care Nurse Name: Maureen Smith RN Position: [facility] RN Member Role: Primary Care Nurse Name: Sultana Broussard RN Position: [facility] RN Member Role: Primary Care Nurse Name: Abigail Dior RN Position: [facility] RN Member Role: Primary Care Nurse Name: Ivette Carter RN Position: [facility] RN Member Role: Primary Care Nurse Name: Rukhsana Matthews RN Position: [facility] Chief Controller Tower Member Role: Primary Care Nurse Care Team Related Persons Name: SHIRAZTUNDE TANA Address: [place] [address] Name: MARIA TERESA UMAÑA Address: home [address] [place] [address] Name: ANG GAFFNEY Address: home [address] [place] [address] Name: CHILO AHMADI Address: home [address] [address]
--- OUTSIDE RECORDS SUMMARY | 2023-09-15 07:36 | XMS_ITS | Continuity of Care Document ---
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 Role Phone Kwame Bolton Primary Care Physician [phone] Encounter [facility] Date(s): 07/10/20 - 08/28/20 [facility] [address], [address] Floor, [address] [place] [id number] Attending Physician: Isaac Hu MD Admitting Physician: Isaac Hu MD Allergies, Adverse Reactions, Alerts Substance Reaction [...] Comment: dose 1 3Result Comment: Received at [facility] on [facility] in [place] 4Admin Note: vis given 5Admin Note: vis given 6Result Comment: [02/22/2017] [facility] [id number] 7Admin Note: flulaval vis given vis date 11/16/2011 8Admin Note: VIS GIVEN VIS DATE 12/24/2009 9Admin Note: VIS GIVEN 12/25/08 divehi 10Result Comment: [01/03/2018 Uncharted] ERROR NOT GIVEN 11Result Comment: [id number] exp 06/2009 12Admin Note: vis given Medications [...] each, 5 Refills, Maintenance, 06/11/20 11:38:00 EST, [facility] - [place], [place] - [id number], 1 sprays By Mouth 6 times a day,Instr:please dispense 2 bottles per month... Start Date: 06/11/20 Status: Ordered Breo Ellipta 200 mcg-25 mcg/inh inhalation powder See Instructions, INHALE 1 PUFF BY MOUTH INTO THE lungs DAILY. rinse mouth and throat after use, # 60 Unknown, 11 Refills, 03/27/20 10:56:00 EST, [facility], [place] - [id number], 30, INHALE 1 PUFF BY MOUTH INTO [...] day, # 56 tablet, 0 Refills, Acute, 08/06/20 10:14:00 EDT, [facility], 163, cm, 07/31/20 13:11:00 EDT, Height Start Date: 08/06/20 Status: Ordered clonazePAM 0.5 mg oral tablet 2 tablet = 1 mg, By Mouth, 2 times a day, # 120 tablet, 2 Refills, Maintenance, 07/09/20 16:30:00 EST, [facility], [place] - [id number], 163, cm, 07/08/20 9:27:00 EST, Height Start Date: 07/09/20 Stop Date: 10/07/20 Status: Ordered Daliresp 500 mcg oral tablet See Instructions, TAKE ONE TABLET BY MOUTH DAILY, # 30 tablet, 6 Refills, Maintenance, [facility], 163, cm, 03/05/20 13:58:00 EDT, Height, [...] 12/15/19 10:10:00 EDT, Route to Pharmacy Electronically, [facility] [id number], 163, cm, 07/11/19 13:24:00 EST, Height, 114, kg... Start Date: 12/15/19 Status: Ordered docusate sodium 100 mg oral capsule See Instructions, TAKE ONE CAPSULE BY MOUTH 2 (two) times a day, # 60 capsule, 5 Refills, 03/27/20 10:56:00 EST, [facility] [id number], 163, cm, 03/05/20 13:58:00 EDT, Height, 114, [...] Gm, 5 Refills, Maintenance, 08/16/19 15:53:00 EDT, [place], [place] -, 1 sprays Nares, Both 2 times a day, 163, cm, 07/11/19 13:24:00 EST, Height, 114, kg, 04/19/18 23:58:00 EST, Dry Weight Start Date: 08/16/19 Status: Ordered furosemide 40 mg oral tablet 40 mg, 1, tablet, By Mouth, 2 times a day, # 60 tablet, Refills 5, Tot. Refills 5, Maintenance, 08/05/20 13:27:00 EDT, Route to Pharmacy Electronically, [facility] [id number], 163, cm, 03/17/21 13:11:00 EDT, Height Start Date: 08/05/20 Stop [...] 05/13/20 8:59:00 EST, Route to Pharmacy Electronically, [facility], 163, cm, 03/05/20 13:58:00 EDT, Height [...] 01/18/20 15:46:00 EDT, Route to Pharmacy Electronically, [facility]/pharmacy #[id number], 163, cm, 07/11/19 13:24:00 EST, [...] Refills, Maintenance, 07/08/20 10:14:00 EST, CR Capsule, [facility] - [place], [place] - [id number], Partial fill upon patient request if the [...] tablet, Refills 0, Tot. Refills 0, Maintenance, 08/06/20 10:14:00 EDT, Route to Pharmacy Electronically, [facility], 163, cm, 07/31/20 13:11:00 EDT, Height Start Date: 08/06/20 Status: Ordered portable oxygen concentrator portable oxygen concentrator, See Instructions, # 1 each, Refills 0, Tot. Refills 0, Maintenance, Dx severe COPD. Codes J44.9, R09.02, 01/31/20 16:26:00 EDT, Compound Start Date: 01/31/20 Status: Ordered potassium chloride 20 mEq oral tablet, extended release 1 tablet, By Mouth, Daily, # 30 tablet, 5 Refills, Maintenance, 05/13/20 8:59:00 EST, [facility], 163, cm, 03/05/20 13:58:00 EDT, Height Start Date: 05/13/20 Status: Ordered pulse dose evaluation pulse dose evaluation, See Instructions, # 1 each, Refills 0, Tot. Refills 0, Maintenance, Pulse Dose Evaluation dx: copd,chf 150.9, j44.9, 01/31/20 16:26:00 EDT, Supply Start Date: 01/31/20 Status: Ordered Shingrix intramuscular injection = 0.5 mL, Intramuscular, Once, repeat dose in 2 to 6 months, # 2 each, 0 Refills, Soft Stop, 01/17/20 11:40:00 EDT, Powder, [facility]/pharmacy #[id number], 0.5 mL Intramuscular Once,Instr:repeat dose in 2 to 6 months, 163, cm, 07/11/19 13:24:00 EST, Height, 114,... Start Date: 01/17/20 Status: Ordered traZODone 150 mg oral tablet 3 tablet = 450 mg, By Mouth, Daily at bedtime, Please d/c order for 300mg qhs. Correct dose 450mg qhs., # 90 tablet, 5 Refills, Maintenance, 03/27/20 10:57:00 EST, [place], [place] -[id number], 163, cm, 03/05/20 13:58:00 EDT, Height,... Start Date: 03/27/20 Status: Ordered triamcinolone 0.025% topical cream 1 applicator, Topically, 3 times a day, PRN eczema, # 80 Gm, 2 Refills, Maintenance, 08/16/19 15:48:00 EDT, [place], [place] -, 1 applicator Topically 3 times a day,PRN:eczema, 163, cm, 07/11/19 13:24:00 EST, Height, 114, kg, 04/19/18... Start Date: 08/16/19 Status: Ordered value series power lift chair [id number] value series power lift chair [id number], See Instructions, # 1 each, Refills 0, Tot. Refills 0, Maintenance, Diagnosis codes: G89.29, M19.90, J44.9, Z74.09, 01/30/20 9:31:00 EDT, Supply Start Date: 01/30/20 Status: Ordered Ventolin HFA 108 mcg/inh inhalation aerosol with adapter 2 puffs, Inhalation, 4 times a day, PRN Wheezing/Shortness of Breath, 90 days supply, # 1 each, 5 Refills, Maintenance, 04/15/20 17:48:00 EST, [facility] [id number], 163, cm,03/05/20 13:58:00 EDT, Height, 114, kg, 04/19/18 23... Start Date: 04/15/20 Status: Ordered verapamil 120 mg oral tablet 1 tablet, By Mouth, 3 times a day, home delivery please., # 90 tablet, 5 Refills, Maintenance, 05/21/20 11:21:00 EST, [facility] [id number], 163, cm, 03/05/20 13:58:00 EDT, Height Start Date: 05/21/20 Status: Ordered Vitamin D3 1000 intl units oral tablet 1 tablet = 1,000 International_Units, By Mouth, Daily, # 90 tablet, 1 Refills, Maintenance, 08/10/20 15:51:00 EDT, [facility] [id number], 163, cm, 07/31/20 13:11:00 EDT, Height Start [...] apnea(Confirmed) 4, 5 Active BHN/CCA/CP-Jo Ann Harvey [phone]/Health senior care active care coordination(Confirmed) Active 1Health Care Agent: [...]
--- OUTSIDE RECORDS SUMMARY | 2023-09-15 07:36 | XMS_ITS | Continuity of Care Document ---
Author Organization [facility] Address [address] [place] [address]- Care Team Providers Care Edge Stainer Name Role Phone Kwame Bolton Primary Care Physician Encounter [facility] Date(s): 06/04/22 - 07/30/22 [facility] [address] [place] [id number] Attending Physician: Not on Staff, Attending MD [...] 3Result Comment: dose 1 4Result Comment: [02/22/2017] [facility] [phone] 5Admin Note: flulaval vis given vis date 11/16/2011 6Admin Note: VIS GIVEN VIS DATE 12/24/2009 7Admin Note: VIS GIVEN 12/25/08 [place] 8Result Comment: Received at [facility] on [facility] in [place] 9Admin Note: vis given 10Admin Note: vis given 11Result Comment: [01/03/2018 Uncharted] ERROR NOT GIVEN 12Result Comment: [id number] exp 06/2009 13Admin Note: vis given Medications [...] WITH FOOD, # 90 tablet, 3 Refills, [facility], 90, TAKE ONE TABLET BY MOUTH DAILY WITH FOOD, 163, cm, 09/26/21 13:20:00 EDT, Height Start Date: 12/15/21 Status: Ordered Breo Ellipta 200 mcg-25 mcg/inh inhalation powder 1 puffs, Inhalation, Daily, rinse mouth and throat after use, # 60 Unknown, 5 Refills, Maintenance,02/18/22 11:21:00 EDT, [facility], 30, INHALE 1 PUFF BY MOUTH INTO THE lungs DAILY. rinse mouth and throat after use, 163, cm, 12/29/21 9:41:00 ED... Start Date: 02/18/22 Status: Ordered busPIRone 10 mg oral tablet 10 mg, 1, tablet, By Mouth, 3 times a day, for anxiety, # 90 tablet, Refills 0, Tot. Refills 0, Maintenance, 03/03/22 14:49:00 EDT, Route to Pharmacy Electronically, [facility] [id number], Partial fill upon patient request if... Start [...] mL, 1 Refills, Maintenance, 03/03/22 14:52:00 EDT, [facility] [id number], Partial fill uponpatient request if the prescription is for a schedu... Start Date: 03/03/22 Status: Ordered Comfort EZ Pen [place] 32 gauge x 5/32 Comfort EZ Pen [place] 32 gauge x 5/32 , See Instructions, # 50 Unknown, 11 Refills, USE DAILY WITHvictoza injection, 163, cm, 03/25/21 9:16:00 EST, Height Start Date: 04/01/21 Status: Ordered Comfort EZ Pen [place] 32 gauge x 5/32 Comfort EZ Pen [place] 32 gauge x 5/32 , See Instructions, # 50 Unknown, 0 Refills, USE DAILY WITH victoza injection, 163, cm, 12/18/20 9:01:00 EDT, Height Start Date: 02/05/21 Status: Ordered Comfort EZ Pen [place] 32 gauge x 5/32 Comfort EZ Pen [place] 32 gauge x 5/32 , See Instructions, # 50 Unknown, 11 Refills, Maintenance, USE DAILY WITH victoza injection, 06/04/22 11:52:00 EST, 164, cm, 06/02/22 16:10:00 EST, Height, 122,kg, 05/02/22 15:20:00 EST, Dry Weight Start Date: 06/04/22 Status: Ordered D3 1000 intl units (25 mcg) oral tablet 1 tablet, By Mouth, Daily, # 30 tablet, 5 Refills, 06/24/22 11:25:00 EST, [place], [place] - [id number], 164, cm, 06/02/22 16:10:00 EST, Height, 122, kg, 05/02/22 15:20:00 EST, Dry Weight Start Date: 06/24/22 Status: Ordered Daliresp 500 mcg oral tablet 1 tablet, By Mouth, Daily, # 30 tablet, 6 Refills, [facility], 163, cm, 09/26/21 13:20:00 EDT,Height Start Date: 11/14/21 Status: Ordered docusate sodium 100 mg oral capsule 1 capsule, By Mouth, Daily, # 60 each, 5 Refills, Maintenance, 02/18/22 11:21:00 EDT, [facility], 163, cm, 12/29/21 9:41:00 EDT, Height [...] Gm, 0 Refills, Maintenance, 04/13/22 12:06:00 EST, [place], [facility], [facility] [id number], Partial fill upon patient request if the prescription is for a schedule II opioid drug., 1 sprays Nares, Both... Start Date: 04/13/22 Stop Date: 05/13/22 Status: Ordered furosemide 40 mg oral tablet 1, tablet, By Mouth, 2 times a day, # 60 tablet, Refills 5, Maintenance, 03/20/22 11:36:00 EDT, Route to Pharmacy Electronically, [facility], 163, cm, 03/03/22 9:51:00 EDT, Height Start Date: 03/20/22 Status: Ordered guaiFENesin 100 mg/5 mL oral liquid 20 mL = 400 mg, By Mouth, 2 times a day, for congestion, cough. with fluids, # 240 mL, 0 Refills, Maintenance, 04/14/21 8:42:00 EST, [facility], [facility] [id number], Partial fill upon patient request if the [...] tablet, Refills 0, Tot. Refills 0, Maintenance, NEEDED FOR SEVERE PAIN, 07/24/22 9:09:00 EST, Route to Pharmacy Electronically, [facility], [facility] [id number], 16... Start Date: 07/24/22 Status: Ordered ibuprofen 800 mg oral tablet 1, tablet, By Mouth, Every 8 hours, PRN, TAKE WITH FOOD OR MILK, # 60 tablet, Refills 0, Maintenance, NEEDED FOR SEVERE PAIN, 02/18/22 11:21:00 EDT, Route to Pharmacy Electronically, [facility], 163, cm, 12/29/21 9:41:00 EDT, [...] 07/23/22 10:02:00 EST, Route to Pharmacy Electronically, [facility], 164, cm, 07/21/22 8:59:00 EST, Height, 122, kg, 05/02/22 15:20:00 EST, Dry Weight Start Date: 07/23/22 Status: Ordered magnesium gluconate 250 mg oral tablet 1 tablet = 250 mg, By Mouth, 2 times a day, # 60 tablet, 2 Refills, Maintenance, 04/27/22 11:27:00 EST, [place], [place] - [id number], Partial fill upon patient request if the [...] Start Date: 01/31/20 Status: Ordered Potassium Chloride (Znz-Xlpz-Ebr M20) 20 mEq oral tablet, extended release 1 tablet, By Mouth, Daily, # 30 tablet, 6 Refills, Maintenance, 05/25/22 17:29:00 EST, [facility], 164, cm, 05/02/22 15:20:00 EST, Height, [...] Status: Ordered sertraline 100 mg oral tablet 1 tablet = 100 mg, By Mouth, Daily, bubble pack please dose increase to 100mg 07/21/22, # 30 tablet, 11 Refills, Maintenance, 07/21/22 9:08:00 EST, [facility] - [place], [place] - [id number], bubble pack please; dose increase to 100mg 07/21/22, 164,... Start Date: 07/21/22 Status: Ordered square orthopedic pillow with central square depression and surrounding bolster square orthopedic pillow with central square depression and surrounding bolster, See Instructions, # 1 each, Refills 0, Tot. Refills 0, Maintenance, Product number [id number] Dx codes: M54.2 Duration: lifetime, 07/21/22 14:25:00 EST, Supply Start Date: 07/21/22 Status: Ordered traZODone 150 mg oral tablet 3 tablet, By Mouth, Daily at bedtime, # 270 tablet, 6 Refills, [facility], 163, cm, 09/26/21 13:20:00 EDT, Height Start Date: 11/14/21 Status: Ordered value series power lift chair [id number] value series power lift chair [id number], See Instructions, # 1 each, Refills 0, Tot. Refills 0, Maintenance, Diagnosis codes: G89.29, M19.90, J44.9, Z74.09, 01/30/20 9:31:00 EDT, Supply Start Date: 01/30/20 Status: Ordered varenicline 1mg tablet 1 tablet, By Mouth, 2 times a day, # 56 tablet, 5 Refills, Physician Stop 06/24/23 11:28:00 EST, 06/24/22 11:30:00 EST, [facility] [id number], 164, cm, 06/02/22 16:10:00 EST,Height, 122, kg, 05/02/22 15:20:00 EST, Dry Weight Start Date: 06/24/22 Stop Date: 06/24/23 Status: Ordered Ventolin HFA 108 mcg/inh inhalation aerosol with adapter 2 puffs, Inhalation, 4 times a day, PRN Wheezing/Shortness of Breath, 90 days supply, # 1 each, 5 Refills, Maintenance, 04/14/22 16:26:00 EST, [facility] [id number], 163, cm,04/13/22 11:52:00 EST, Height Start Date: 04/14/22 Status: Ordered Victoza 18 mg/3 mL subcutaneous solution = 1.2 mg, Subcutaneous Infusion, Daily, # 15 mL, 11 Refills, Maintenance, 06/02/22 16:53:00 EST, [facility] [id number], Partial fill upon patient request if the [...] 4, 5 Confirmed Active BHN/CCA/CP-Jo Ann Harvey [phone]/Health snf active care coordination Confirmed Active Severe obesity [...] Care Team Personnel Name: Kwame Bolton Position: [facility] PCO Associate Professional Member Role: PCP Address: Address: [address] [place] [address] [place] [address]- Name: Perri Perry RN Position: S RN Member Role: Primary Care Nurse Name: Alicia Vallecillo RN Position: S RN Member Role: Primary Care Nurse Name: Maureen Smith RN Position: S RN Member Role: Primary Care Nurse Name: Sultana Broussard RN Position: S RN Member Role: Primary Care Nurse Name: Abigail Dior RN Position: S RN Member Role: Primary Care Nurse Name: Ivette Carter RN Position: S RN Member Role: Primary Care Nurse Name: Rukhsana Matthews RN Position: [facility] Obstetrics Teacher Member Role: Primary Care Nurse Care Team Related Persons Name: TANA MENDOZA Address: [place] [address] Name: MARIA TERESA UMAÑA Address: home [address] [place] [address] Name: ANG GAFFNEY Address: home [address] [place] [address] Name: CHILO AHMADI Address: home [address] [address]
--- OUTSIDE RECORDS SUMMARY | 2023-09-15 07:36 | XMS_ITS | Continuity of Care Document ---
Author Organization [facility] Address [address] [place] [address]- Care Team Providers Care Welding Setter Name Role Phone Kwame Bolton Primary Care Physician [facility] Date[facility]): 08/02/23 - 09/01/23 [facility] [address] [place], [place] [phone] Allergies, Adverse Reactions, Alerts Substance Reaction Severity Status Lobster throat tightening; vomiting Active Shrimp throat tightening; vomiting Active Other Environmental Allergy Seasonal Allergies Active FIRST Metronidazole 1 vomiting, diarrhea, dyspnea Pers istent Moderate Active 1VOMITING DIARRHEA,SEVERE DYPNEA Immunizations Given and Recorded Vaccine Date Status Refusal Reason pneumococcal 20-valent conjugate vaccine 03/15/23 Given influenza virus vaccine, inactivated 02/25/23 Casey rded influenza virus vaccine, inactivated 02/16/23 Casey rded influenza virus vaccine, inactivated 1 02/16/23 Re corded influenza virus vaccine, inactivated 03/02/22 Casey rded influenza virus vaccine, inactivated 03/24/21 Casey rded influenza virus vaccine, inactivated 02/01/19 Give n influenza virus vaccine, inactivated 03/09/18 Give n influenza virus vaccine, inactivated 2 02/22/17 Gi cecile influenza virus vaccine, inactivated 03/09/16 Give n influenza virus vaccine, inactivated 03/08/15 Give n influenza virus vaccine, inactivated 02/27/14 Give n influenza virus vaccine, inactivated 07/20/13 Give n influenza virus vaccine, inactivated 3 04/19/12 Gi cecile influenza virus vaccine, inactivated 4 03/11/10 Gi cecile influenza virus vaccine, inactivated 5 02/26/09 Gi cecile SARS-CoV-2(COVID-19)mRNA-LNP vac([id number]) 02/25/23 Recorded SARS-CoV-2 (COVID-19) mRNA-1273 vaccine 6 03/02/22 Recorded SARS-CoV-2 (COVID-19) mRNA-1273 vaccine 03/24/21 R ecorded SARS-CoV-2 (COVID-19) mRNA-1273 vaccine 7 08/22/20 Recorded SARS-CoV-2 (COVID-19) mRNA-1273 vaccine 8 07/24/20 Recorded zoster vaccine, inactivated 05/07/20 Recorded zoster vaccine, inactivated 01/22/20 Recorded Influenza Virus Vaccine (oldterm) 02/23/20 Recorde d Influenza Virus Vaccine (oldterm) 9 02/23/20 Recor ded Influenza Virus Vaccine (oldterm) 10 03/14/08 Give n Influenza Virus Vaccine (oldterm) 11 04/01/07 Give n tetanus-diphtheria toxoids (Td) 09/27/18 Given pneumococcal 13-valent vaccine 02/10/16 Given influ virus vac, H1N1, inactive(oldterm) 12 05/17/09 Given Tet/Diphth/Acel, Pertussis (oldterm) 13 05/30/08 G iven Pneumococcal Poly (PPV23) (oldterm) 08/08/06 Given Pneumococcal Vaccine (oldterm) 08/08/06 Given 1Result Comment: [02/16/2023] [facility] 2Result Comment: [02/22/2017] [facility] [id number] 3Admin Note: flulaval vis given vis date 11/16/2011 4Admin Note: VIS GIVEN VIS DATE 12/24/2009 5Admin Note: VIS GIVEN 12/25/08 panamanian 6Result Comment: new booster 7Result Comment: dose 2 8Result Comment: dose 1 9Result Comment: Received at [facility] in [place] 10Admin Note: vis given 11Admin Note: vis given 12Result Comment: [id number] exp 06/2009 13Admin Note: vis given Medications [...] EST, Compound Start Date: 07/12/19 Status: Ordered [place] Saline 0.65% nasal gel 1 sprays, Nares, Both, 4 times a day, # 22.5 Gm, 1 Refills, Maintenance, 08/20/23 15:42:00 EDT, [facility] [phone], Partial fill upon patient request if the prescription is for a schedule II opioid drug., 1 sprays Nares, Kilo... Start Date: 08/20/23 Status: Ordered B-Complex with B-12 oral tablet See Instructions, TAKE 1 TABLET BY MOUTH ONCE DAILY WITH FOOD, # 90 tablet, 1 Refills, Maintenance,05/28/23 17:52:00 EST, [facility] [phone], 90, TAKE 1 TABLET BY MOUTH ONCE DAILY WITH FOOD, 163, cm, 05/06/23 8:47:00 EST,... Start Date: 05/28/23 Status: Ordered Biotene Moisturizing Mouth oral spray 1 sprays, By Mouth, 6 times a day, BIOTENE NAME BRAND MAY BE REQUIRED, # 240 mL, 5 Refills, Maintenance, 11/18/22 8:47:00 EDT, [facility] [phone], Partial fill upon patient request if the prescription is for a schedule II o... Start Date: 11/18/22 Status: Ordered Cane See Instructions, # 1 each, Maintenance, DX LEFT KNEE PAIN /ACL TEAR /ARTHRITIS DX CODE M25.562 HT 163 CM WT 123 KG DURATION -LIETIME PATIENTS CANE ASHUTOSH, 01/06/19 8:36:49 EDT, Compound Start Date: 01/06/19 Status: Ordered Comfort EZ Pen Wing 32 gauge x 5/32 Comfort EZ Pen Wing 32 gauge x 5/32 , See Instructions, # 50 Unknown, 11 Refills, Maintenance, USE DAILY WITH victoza injection, 06/04/22 11:52:00 EST, 164, cm, 06/02/22 16:10:00 EST, Height, 122,kg, 05/02/22 15:20:00 EST, Dry Weight Start Date: 06/04/22 Status: Ordered DEKAs Bariatric oral tablet, chewable See Instructions, TAKE 1 TABLET PO DAILY X1 YEAR SP BARIATRIC SURGERY, # 60 each, 5 Refills, Maintenance, 03/17/23 9:55:00 EDT, [facility] [phone], Partial fill upon patient request if the prescription is for a schedule II... Start Date: 03/17/23 Status: Ordered docusate sodium 100 mg oral capsule 1 capsule, By Mouth, 2 times a day, # 60 each, 5 Refills, Maintenance, 05/14/23 10:27:00 EST, [facility], 163, cm, 05/06/23 8:47:00 EST, Height, 122, kg, 05/02/22 15:20:00 EST, Dry Weight Start Date: 05/14/23 Status: Ordered Ear Pain MD 4% otic liquid 2 drops, Ears, Both, 3 times a day, PRN Pain , Moderate, # 12.5 mL, 0 Refills, Maintenance, 01/04/23 21:24:00 EDT, [facility] [phone], Partial fill upon patient request ifthe prescription is for a schedule II opioid drug.,... Start Date: 01/04/23 Status: Ordered Electric Neck Shawl Heating Pad Electric Neck Shawl Heating Pad, See Instructions, # 1 each, Refills 0, Tot. Refills 0, Maintenance, Use for chronic neck pain, neck muscle spasms. M54.2 and M62.838, 07/11/19 14:00:00 EST, Compound Start Date: 07/11/19 Status: Ordered Ensure max protein oral liquid Ensure max protein oral liquid, 1 can, By Mouth, 2 times a day, # 56 each, Refills 5, Tot. Refills 5, Maintenance, please take one can twice per day, 12/15/22 13:59:00 EDT, Dx code: [id number]; E66.01; morbid obesity; pending bariatric surgery, Supply,... Start Date: 12/15/22 Stop Date: 06/01/23 Status: Ordered ferrous gluconate 324 mg oral tablet 1 tablet, By Mouth, Every other day, # 15 tablet, 5 Refills, Maintenance, 05/27/23 18:43:00 EST, [facility], 163, cm, 05/06/23 8:47:00 EST, Height, 122, kg, 05/02/22 15:20:00 EST, Dry Weight Start Date: 05/27/23 Status: Ordered fluticasone 50 mcg/inh nasal spray 1 sprays, Nares, Both, Daily, # 16 Gm, 2 Refills, Maintenance, 07/13/23 18:31:00 EST, [place], [place] - [phone], Partial fill upon patient request if the prescription is for a schedule II opioid drug., 1 sprays Nares, Both Daily,... Start Date: 07/13/23 Status: Ordered furosemide 40 mg oral tablet 1, tablet, By Mouth, 2 times a day, # 60 tablet, Refills 5, Maintenance, 04/13/23 13:49:00 EST, Route to Pharmacy Electronically, [facility], 163, cm, 04/12/23 8:10:00 EST, Height, 122, kg, 05/02/22 15:20:00 EST, Dry Weight Start Date: 04/13/23 Status: Ordered Gloves See Instructions, # 2 each, Refills 11, Tot. Refills 11, Maintenance, GLOVES SIZE MEDIUM 2 BOXES PER MONTH DX MIXED INCONTINENCE N39.46, 07/19/23 9:13:00 EST, Supply Start Date: 07/19/23 Status: Ordered HOME BP MONITOR WITH WRIST [...] Refills 0, Maintenance, NEEDED FOR SEVERE PAIN, 06/14/23 8:55:00 EST, Route to Pharmacy Electronically, [facility], 163, cm, 05/06/23 8:47:00 EST, Height, 122, kg, 1... Start Date: 06/14/23 Status: Ordered INCONCTINENCE LINERS SUPER ABSORBANT INCONCTINENCE LINERS SUPER ABSORBANT, See Instructions, # 180 each, Refills 11, Tot. Refills 11, Maintenance, DX MIXED INCONTINENCE N39.46 6 PER DAY, 07/19/23 9:07:00 EST, Compound Start Date: 07/19/23 Status: Ordered Insulin Syringe, BD Ultra-Fine 0.3 [...] Daily, # 30 tablet, Refills 5, Maintenance, 08/09/23 13:18:00 EDT, Route to Pharmacy Electronically, [facility], 163, cm, 05/06/23 8:47:00 EST, Height, 122, kg, 05/02/22 15:20:00 EST, Dry Weight Start Date: 08/09/23 Status: Ordered Mag-G 500 mg oral tablet 0.5 tablet, By Mouth, 2 times a day, # 30 tablet, 2 Refills, Maintenance, 02/15/23 18:46:00 EDT, [facility], 163, cm, 01/20/23 8:13:00 EDT, Height, 122, kg, 05/02/22 15:20:00 EST, Dry Weight Start Date: 02/15/23 Status: Ordered MiraLax oral powder for reconstitution = 17 Gm, By Mouth, Daily, PRN Constipation, dissolve in 4 to 8 oz of beverage, # 24 each, 0 Refills, Maintenance, 08/25/23 18:22:00 EDT, [place], [place] - [id number], Partial fill upon patient request if the prescription is for a pino... Start Date: 08/25/23 Status: Ordered Nicotrol Inhaler 10 mg inhalation device See Instructions, To use with nicotine cartridges in place of cigarettes, # 3 each, 0 Refills, Maintenance, 08/31/22 9:43:00 EDT, [place], [place] - [id number], Partial fill upon patient request if the prescription is for a schedule I... Start Date: 08/31/22 Status: Ordered NO RINSE SHAMPOO CAP NO [...] EDT, Supply Start Date: 02/28/21 Status: Ordered Ozempic 2 mg/3 mL (0.25 mg or 0.5 mg dose) subcutaneous solution See Instructions, INJECT 0.5mg UNDER THE SKIN EVERY WEEK, # 3 mL, 5 Refills, Maintenance, 04/05/23 18:38:00 EST, [facility], 163, cm, 03/15/23 8:28:00 EDT, Height, 122, kg, 05/02/22 15:20:00 EST, Dry Weight Start Date: 04/05/23 Status: Ordered PLEASE D/C VITAMIN D3 1000 IU PLEASE D/C VITAMIN D3 1000 IU, See Instructions, # 1 each, Refills 0, Tot. Refills 0, Maintenance, PLEASE D/C VITAMIN D3 1000, 12/22/22 8:40:00 EDT, Supply, 163, cm, 12/22/22 8:14:00 EDT, Height, 122, kg, 05/02/22 15:20:00 EST, Dry Weight Start Date: 12/22/22 Status: Ordered portable oxygen concentrator portable oxygen concentrator, See Instructions, # 1 each, Refills 0, Tot. Refills 0, Maintenance, Dx severe COPD. Codes J44.9, R09.02, 01/31/20 16:26:00 EDT, Compound Start Date: 01/31/20 Status: Ordered Potassium Chloride (Gwt-Ched-Klf M20) 20 mEq oral tablet, extended release 1 tablet, By Mouth, Daily, # 30 tablet, 2 Refills, Maintenance, 08/13/23 15:40:00 EDT, [place], [place] - [id number], 163, cm, 08/13/23 13:24:00 EDT, Height, 122, kg, 05/02/22 15:20:00 EST, Dry Weight Start Date: 08/13/23 Status: Ordered pulse dose evaluation pulse dose evaluation, See Instructions, # 1 each, Refills 0, Tot. Refills 0, Maintenance, Pulse Dose Evaluation dx: copd,chf 150.9, j44.9, 01/31/20 16:26:00 EDT, Supply Start Date: 01/31/20 Status: Ordered Readi-Cat 2 Smoothie Banana 2% oral suspension See Instructions, As directed plate conditioner to CT, # 900 mL, 0 Refills, Maintenance, 08/18/23 10:48:00 EDT, [facility], Partial fill upon patient request if the prescription is for a scheduleII opioid drug., As directed plate conditioner to CT, 163, cm... Start Date: 08/18/23 Status: Ordered Roflumilast 500 mcg oral tablet 1 tablet, By Mouth, Daily, # 30 tablet, 2 Refills, Maintenance, 08/13/23 15:40:00 EDT, [place], [place] - [id number], 163, cm, 08/13/23 13:24:00 EDT, Height, 122, kg, 05/02/22 15:20:00 EST, Dry Weight Start Date: 08/13/23 Status: Ordered roflumilast 500 mcg tablet roflumilast [...] 08/18/22, # 45 tablet, 5 Refills, Maintenance, 07/13/23 18:30:00 EST, [place], [place] - [id number], please dispense in bubble pack. dose increase... Start Date: 07/13/23 Status: Ordered square orthopedic pillow with central square depression and surrounding bolster square orthopedic pillow with central square depression and surrounding bolster, See Instructions, # 1 each, Refills 0, Tot. Refills 0, Maintenance, Product number [id number] Dx codes: M54.2 Duration: lifetime, 07/21/22 14:25:00 EST, Supply Start Date: 07/21/22 Status: Ordered traZODone 150 mg oral tablet 3 tablet, By Mouth, Daily at bedtime, # 270 tablet, 6 Refills, 10/26/22 10:18:00 EDT, [place], [place] - [id number], 163, cm, 10/14/22 8:43:00 EDT, Height, 122, kg, 05/02/22 15:20:00EST, Dry Weight Start Date: 10/26/22 Status: Ordered Trelegy Ellipta 200 mcg-62.5 mcg-25 mcg/inh inhalation powder 1 puffs, Inhalation, Daily, at the same time every day, # 9 each, 3 Refills, Maintenance, 08/31/22 9:41:00 EDT, Powder, [place], [place] - [id number], Partial fill upon patient request if the prescription is for a schedule II opioid d... Start Date: 08/31/22 Status: Ordered value series power lift chair [id number] value series power lift chair [id number], See Instructions, # 1 each, Refills 0, Tot. Refills 0, Maintenance, Diagnosis codes: G89.29, M19.90, J44.9, Z74.09, 01/30/20 9:31:00 EDT, Supply Start Date: 01/30/20 Status: Ordered Ventolin HFA 108 mcg/inh inhalation aerosol with adapter 2 puffs, Inhalation, 4 times a day, PRN NEEDED FOR SHORTNESS OF BREATH OR FOR WHEEZING, # 18 Gm,5 Refills, Maintenance, 04/13/23 13:49:00 EST, [facility], 163, cm, 04/12/23 8:10:00 EST, Height, 122, kg, 05/02/22 15:20:00 EST, Dry Weight Start Date: 04/13/23 Status: Ordered wrist blood pressure monitor wrist [...] 4, 5 Confirmed Active BHN/CCA/CP-Jo Ann Harvey [phone]/Health senior care active care coordination Confirmed Active BHN/CCA/LCC Lisa Pyleillo [phone]/Health senior care active care coordination Confirmed Active Severe obesity (BMI 35.0-39.9) with comorbidity Confirmed Active 1Health Care Agent: Tana Porter, 2along with endo cervical curettage 3bilateral R>L 4titration results reviewed - CPAP at 14 cm H2O. If remained symptomatic then a trial of BiPAP due to hypoventilation component. 5PSG done on 04/04/2007 - severe KIANA, desat to 83%. 42% of night below 90%. Social History Social History Type Response Tobacco Use: 4 or less cigar ettes(less than 1/4 pack)/day in last 30 days. Interested in cessation: No. Started at age: 9 Years. Sex Female Patient Care team information Care Team Personnel Name: Kwame Bolton Position: [facility] PCO Associate Professional Member Role: PCP Address: Address: [address] [place] [address] [place] [address]- Name: Perri Perry RN Position: [facility] RN Member Role: Primary Care Nurse Name: Alicia Vallecillo RN Position: [facility] RN Member Role: Primary Care Nurse Name: Андрей Boo RN Position: [facility] Outreach Member Role: Primary Care Nurse Name: Maureen Smith RN Position: [facility] RN Member Role: Primary Care Nurse Name: Sultana Broussard RN Position: [facility] RN Member Role: Primary Care Nurse Name: Abigail Dior RN Position: [facility] RN Member Role: Primary Care Nurse Name: Ivette Carter RN Position: [facility] RN Member Role: Primary Care Nurse Name: Rukhsana Matthews RN Position: [facility] Laborer Vineyard Member Role: Primary Care Nurse Care Team Related Persons Name: TANA MENDOZA Address: [place] [address] Name: MARIA TERESA UMAÑA Address: home [address] [place] [address] Name: ANG GAFFNEY Address: home [address] [place] [address] Name: CHILO AHMADI Address: home [address] [address]
--- OUTSIDE RECORDS SUMMARY | 2023-09-15 07:36 | XMS_ITS | Continuity of Care Document ---
Author Organization [facility] Address [address] [place] [address]- Care Team Providers Care Event Planner Name Role Phone Kwame Bolton Primary Care Physician [phone] [facility]): [facility] - 10/05/19 [facility] [address] [place] [address]- [facility] Attending Physician: Kwame Bolton Allergies, Adverse Reactions, Alerts Substance Reaction Severity [...] Vaccine (oldterm) 08/08/06 Given 1Result Comment: [02/22/2017] [facility] [id number] 2Admin Note: flulaval vis given vis date 11/16/2011 3Admin Note: VIS GIVEN VIS DATE 12/24/2009 4Admin Note: VIS GIVEN 12/25/08 bulgarian 5Result Comment: [01/03/2018 Uncharted] ERROR NOT GIVEN 6Result Comment: [id number] exp 06/2009 7Admin Note: vis given 8Admin Note: vis given 9Admin Note: vis given Medications Acapella Device Acapella Device, See Instructions, # 1 each, Refills 3, Tot. Refills 3, Maintenance, COPD CHF 150.9J44.9, 07/12/19 11:29:00 EST, Compound Start Date: 07/12/19 Status: Ordered acetaminophen 325 mg oral tablet 650 mg, 2, tablet, By Mouth, Every 8 hours, PRN, # 100 tablet, Refills 1, Tot. Refills 1, Maintenance, Pain , Moderate, 08/16/19 15:54:00 EDT, Route to Pharmacy Electronically, [place], [place] -, 163, cm, 07/11/19 13:24:00 ESTWin... Start Date: 08/16/19 Status: Ordered Biotene Moisturizing Mouth oral spray [...] 5 Refills, Maintenance, 08/16/19 15:52:00 EDT, Powder, [place], [place] -, 1 puffs Inhalation Daily,Instr:[place] well after each use, 163, cm, 07/11/19 13:24:... Start Date: 08/16/19 Status: Ordered Cane See Instructions, # 1 each, Maintenance, DX LEFT KNEE PAIN /ACL TEAR /ARTHRITIS DX CODE M25.562 HT 163 CM WT 123 KG DURATION -LIETIME PATIENTS VERA BOYKIN, 01/06/19 8:36:49 EDT, Compound Start Date: 01/06/19 Status: Ordered chantix 1mg tablet 1 tablet = 1 mg, By Mouth, 2 times a day, for 30 days, # 60 tablet, 5 Refills, Acute 02/12/20 15:52:00 EDT, 08/16/19 15:52:00 EDT, [place], [place] -, 163, cm, 07/11/19 13:24:00 EST,Height, 114, kg, 04/19/18 23:58:00 EST, Dry Weight Start Date: 08/16/19 Stop Date: 02/12/20 Status: Ordered clonazePAM 0.5 mg oral tablet 2 tablet = 1 mg, By Mouth, 2 times a day, dose increased to 2 tabs bid 05/2018, # 120 tablet, 2 Refills, Maintenance, 08/16/19 15:49:00 EDT, [place], [place] -, 163, cm, 07/11/19 13:24:00 EST, Height, 114, kg, 04/19/18 23:58:00 EST, D... Start Date: 08/16/19 Stop Date: 11/14/19 Status: Ordered Daliresp 500 mcg oral tablet See Instructions, 1 tablet By Mouth Daily, # 30 each, 6 Refills, Maintenance, 08/16/19 15:51:00 EDT, [place], [place] -, 163, cm, 07/11/19 13:24:00 EST, Height, 114, kg, 04/19/18 23:58:00 EST, Dry Weight Start Date: 08/16/19 Status: Ordered Deep Sea Nasal 0.65% nasal [...] capsule, Refills 5, Tot. Refills 5, Maintenance, 08/15/2014:51:00 EDT, Route to Pharmacy Electronically, [place], [place] -, 163, cm, 07/11/19 13:24:00 EST, Height, 114, kg, 04/19/18 23:58:00... Start Date: 08/16/19 Status: Ordered Electric Neck Shawl Heating Pad [...] Gm, 5 Refills, Maintenance, 08/16/19 15:53:00 EDT, [place], [place] -, 1 sprays Nares, Both 2 times a day, 163, cm, 07/11/19 13:24:00 EST, Height, 114, kg, 04/19/18 23:58:00 EST, Dry Weight Start Date: 08/16/19 Status: Ordered furosemide 40 mg oral tablet 40 mg, 1, tablet, By Mouth, 2 times a day, # 60 tablet, Refills 5, Tot. Refills 5, Maintenance, 08/16/19 15:51:00 EDT, Route to Pharmacy Electronically, [place], [place] -, 163, cm, 07/11/19 13:24:00 EST, Height, 114, kg, 04/19/18 23:... Start Date: 08/16/19 Stop Date: 02/12/20 Status: Ordered guaiFENesin 100 mg/5 mL oral liquid 20 mL = 400 mg, By Mouth, Every 6 hours, PRN Cough and Congestion, with fluids, # 240 mL, 0 Refills, Maintenance, 09/28/19 14:14:00 EDT, [place], [place] -, 163, cm, 07/11/19 13:24:00 EST, Height, 114, kg, 04/19/18 23:58:00 EST, Dry W... Start Date: 09/28/19 Status: Ordered Hospital Bed See Instructions, # 1 each, Maintenance, DX: COPD,ASTHMA,KIANA,CERVICAL DISC DISEASES, CHRONIC PAIN JJ44.9,G47.33 M50.9MG89.29 DURATION- LIFETIME, 03/29/19 16:31:32 EST, Compound Start Date: 03/29/19 Status: Ordered ibuprofen 800 mg oral tablet 800 mg, 1, tablet, By Mouth, Every 8 hours, PRN, with food or milk, # 60 each, Refills 1, Tot. Refills 1, Maintenance, Pain , Severe, 09/06/19 15:51:00 EDT, Route to Pharmacy Electronically, [place], [place] -, 163, cm, 07/11/19 13:24... Start Date: 09/06/19 Status: Ordered INCONCTINENCE LINERS SUPER ABSORBANT INCONCTINENCE [...] tablet, Refills 3, Tot. Refills 3, Maintenance, 09/28/19 14:13:00 EDT, Route to Pharmacy Electronically, [place], [place] -, 163, cm, 07/11/2012:24:00 EST, Height, 114, kg, 04/19/18 23:58:00 ES... Start Date: 09/28/19 Status: Ordered Narcan 4 mg/0.1 mL nasal [...] Tot. Refills 11, Maintenance, Codes G47.33, J44.9, 10/04/19 17:25:00 EDT, Compound Start Date: 10/04/19 Status: Ordered PORTABLE OXYGEN CONCENTRATOR PORTABLE OXYGEN CONCENTRATOR, See Instructions, # 1 each, Refills 0, Tot. Refills 0, Maintenance, 02 2L VIA NASAL CANNULA DX:COPD CHF J45.909 I50.9 DURATION LIFETIME, 04/24/19 13:08:46 EST, Compound Start Date: 04/24/19 Status: Ordered potassium chloride 20 mEq oral tablet, extended release 1 tablet = 20 mEq, By Mouth, Daily, # 30 tablet, 5 Refills, Maintenance, 08/16/19 15:50:00 EDT, [place], [place] -, 163, cm, 07/11/19 13:24:00 EST, Height, 114, kg, 04/19/18 23:58:00EST, Dry Weight Start Date: 08/16/19 Status: Ordered pregabalin 25 mg oral capsule 1 capsule = 25 mg, By Mouth, 3 times a day, for chronic pain. please stop tizanidine., # 90 capsule, 2 Refills, Maintenance, 09/21/19 15:58:00 EDT, [place], [place] -, 163, cm, 07/11/19 13:24:00 EST, Height, 114, kg, 04/19/18 23:58:00... Start Date: 09/21/19 Status: Ordered pregabalin 50 mg oral capsule 1 capsule = 50 mg, By Mouth, 3 times a day, dose increase 50 tid 09/28/2019, # 90 capsule, 0 Refills, Maintenance, 09/28/19 14:16:00 EDT, [place], [place] -, 163, cm, 07/11/19 13:24:00 EST, Height, 114, kg, 04/19/18 23:58:00 EST, Dry W... Start Date: 09/28/19 Status: Ordered traZODone 150 mg oral tablet 3 tablet = 450 mg, By Mouth, Daily at bedtime, Please d/c order for 300mg qhs. Correct dose 450mg qhs., # 90 tablet, 5 Refills, Maintenance, 08/16/19 15:52:00 EDT, [place], [place] -, 163, cm, 07/11/19 13:24:00 EST, Height, 114, kg, 1... Start Date: 08/16/19 Status: Ordered triamcinolone 0.025% topical cream 1 applicator, Topically, 3 times a day, PRN eczema, # 80 Gm, 2 Refills, Maintenance, 08/16/19 15:48:00 EDT, [place], [place] -, 1 applicator Topically 3 times a day,PRN:eczema, 163, cm, 07/11/19 13:24:00 EST, Height, 114, kg, 04/19/18... Start Date: 08/16/19 Status: Ordered Ventolin HFA 108 mcg/inh inhalation aerosol with adapter 2 puffs, Inhalation, 4 times a day, PRN Wheezing/Shortness of Breath, 90 days supply, # 1 each, 5 Refills, Maintenance, 08/16/19 15:53:00 EDT, [place], [place] -, 163, cm, 07/11/19 13:24:00 EST, Height, 114, kg, 04/19/18 23:58:00 EST,... Start Date: 08/16/19 Status: Ordered verapamil 120 mg oral tablet 1 tablet = 120 mg, By Mouth, 3 times a day, dose increase 120 tid 09/28/2019., # 90 tablet, 0 Refills, Maintenance, 09/28/19 14:28:00 EDT, [place], [place] -, 163, cm, 07/11/19 13:24:00 EST, Height, 114, kg, 04/19/18 23:58:00 EST, Dry... Start Date: 09/28/19 Status: Ordered verapamil 80 mg oral tablet 1 tablet = 80 mg, By Mouth, 3 times a day, dose increase 09/21/2019. for migraine prevention, # 90 tablet, 2 Refills, Maintenance, 09/21/19 15:40:00 EDT, [place], [place] -, 163, cm, 07/11/19 13:24:00 EST, Height, 114, kg, 04/19/18 23:5... Start Date: 09/21/19 Status: Ordered Vitamin D3 1000 intl units oral tablet 1 tablet = 1,000 International_Units, By Mouth, Daily, # 90 tablet, 3 Refills, Maintenance, 08/16/19 15:51:00 EDT, [place], [place] -, 163, cm, 07/11/19 13:24:00 EST, Height, 114, kg, 04/19/18 23:58:00 EST, Dry Weight Start Date: 08/16/19 Stop Date: 08/10/20 Status: Ordered Problem List Condition Effective Dates [...]
--- OUTSIDE RECORDS SUMMARY | 2023-09-15 07:36 | XMS_ITS | Continuity of Care Document ---
Author Organization [facility] Address [address] [place] [address]- Care Team Providers Care Neurology Tech Name Role Phone Kwame Bolton Primary Care Physician Encounter [facility] Date(s): 05/27/23 - 06/26/23 [facility] [address] [place] [id number] Allergies, Adverse Reactions, Alerts Substance [...] vaccine, inactivated 5 02/26/09 Gi cecile SARS-CoV-2(COVID-19)mRNA-LNP vac(kci132) 02/25/23 Recorded SARS-CoV-2 (COVID-19) mRNA-1273 vaccine 6 [...] 1Result Comment: [02/16/2023] Given at [facility] be obtained from [facility] 2Result Comment: [02/22/2017] [facility] [id number] 3Admin Note: flulaval vis given vis date 11/16/2011 4Admin Note: VIS GIVEN VIS DATE 12/24/2009 5Admin Note: VIS GIVEN 12/25/08 estonian 6Result Comment: new booster 7Result Comment: dose 2 8Result Comment: dose 1 9Result Comment: Received at [facility] on [facility] in [place] 10Admin Note: vis given 11Admin Note: vis given 12Result Comment: [id number] exp 06/2009 13Admin Note: vis given Medications [...] EST, Compound Start Date: 07/12/19 Status: Ordered Brussels Saline 0.65% nasal gel 1 sprays, Nares, Both, 4 times a day, # 22.5 Gm, 1 Refills, Maintenance, 04/12/23 8:20:00 EST, [facility] [phone], Partial fill upon patient request if the prescription isfor a schedule II opioid drug., 1 sprays Nares, Bot... Start Date: 04/12/23 Status: Ordered Azithromycin 5 Day Dose Pack 250 mg oral tablet See Instructions, as directed on package labeling, # 6 each, 0 Refills, Maintenance, 01/05/23 14:03:00 EDT, [facility] [phone], Partial fill upon patient request if the prescription is for a schedule II opioid drug., 163, c... Start Date: 01/05/23 Status: Ordered B-Complex with B-12 oral tablet See Instructions, TAKE 1 TABLET BY MOUTH ONCE DAILY WITH FOOD, # 90 tablet, 1 Refills, Maintenance,05/28/23 17:52:00 EST, [facility] [id number], 90, TAKE 1 TABLET BY MOUTH ONCE DAILY WITH FOOD, 163, cm, 05/06/23 8:47:00 EST,... Start Date: 05/28/23 Status: Ordered Biotene Moisturizing Mouth oral spray 1 sprays, By Mouth, 6 times a day, BIOTENE NAME BRAND MAY BE REQUIRED, # 240 mL, 5 Refills, Maintenance, 11/18/22 8:47:00 EDT, [facility] [phone], Partial fill upon patient request if the prescription is for a schedule II o... Start Date: 11/18/22 Status: Ordered Cane See Instructions, # 1 each, Maintenance, DX LEFT KNEE PAIN /ACL TEAR /ARTHRITIS DX CODE M25.562 HT 163 CM WT 123 KG DURATION -LIETIME PATIENTS VERA BOYKIN, 01/06/19 8:36:49 EDT, Compound Start Date: 01/06/19 Status: Ordered Comfort EZ Pen Drake 32 gauge x 5/32 Comfort EZ Pen Drake 32 gauge x 5/32 , See Instructions, # 50 Unknown, 11 Refills, USE DAILY WITHvictoza injection, 163, cm, 03/25/21 9:16:00 EST, Height Start Date: 04/01/21 Status: Ordered Comfort EZ Pen Drake 32 gauge x 5/32 Comfort EZ Pen Drake 32 gauge x 5/32 , See Instructions, # 50 Unknown, 0 Refills, USE DAILY WITH victoza injection, 163, cm, 12/18/20 9:01:00 EDT, Height Start Date: 02/05/21 Status: Ordered Comfort EZ Pen Drake 32 gauge x 5/32 Comfort EZ Pen Drake 32 gauge x 5/32 , See Instructions, [...] each, 5 Refills, Maintenance, 03/17/23 9:55:00 EDT, [place], [place] - [id number], Partial fill upon patient request if the prescription is for a schedule II... Start Date: 03/17/23 Status: Ordered docusate sodium 100 mg oral capsule 1 capsule, By Mouth, 2 times a day, # 60 each, 5 Refills, Maintenance, 05/14/23 10:27:00 EST, [facility], 163, cm, 05/06/23 8:47:00 EST, Height, 122, kg, 05/02/22 15:20:00 EST, Dry Weight Start Date: 05/14/23 Status: Ordered Ear Pain MD 4% otic liquid 2 drops, Ears, Both, 3 times a day, PRN Pain , Moderate, # 12.5 mL, 0 Refills, Maintenance, 01/04/23 21:24:00 EDT, [place], [place] - [id number], Partial fill upon patient request ifthe prescription [...] tablet, 5 Refills, Maintenance, 05/27/23 18:43:00 EST, [facility], 163, cm, 05/06/23 8:47:00 EST, Height, 122, kg, 05/02/22 15:20:00 EST, Dry Weight Start Date: 05/27/23 Status: Ordered fluticasone 50 mcg/inh nasal spray 1 sprays, Nares, Both, Daily, # 16 Gm, 2 Refills, Maintenance, 12/29/22 17:51:00 EDT, [place], [place] - [id number], Partial fill upon patient request if the prescription is for a schedule II opioid drug., 1 sprays Nares, Both Daily,... Start Date: 12/29/22 Status: Ordered furosemide 40 mg oral tablet 1, tablet, By Mouth, 2 times a day, # 60 tablet, Refills 5, Maintenance, 04/13/23 13:49:00 EST, Route to Pharmacy Electronically, [facility], 163, cm, 04/12/23 8:10:00 EST, Height, 122, kg, 05/02/22 15:20:00 EST, Dry Weight Start Date: 04/13/23 Status: Ordered HOME BP MONITOR WITH WRIST [...] 06/14/23 8:55:00 EST, Route to Pharmacy Electronically, [facility], 163, cm, 05/06/23 8:47:00 EST, Height, [...] Daily, # 30 tablet, Refills 5, Maintenance, 02/10/23 10:21:00 EDT, Route to Pharmacy Electronically, [facility], 163, cm, 01/20/23 8:13:00 EDT, Height, 122, kg, 05/02/22 15:20:00 EST, Dry Weight Start Date: 02/10/23 Status: Ordered Mag-G 500 mg oral tablet 0.5 tablet, By Mouth, 2 times a day, # 30 tablet, 2 Refills, Maintenance, 02/15/23 18:46:00 EDT, [facility], 163, cm, 01/20/23 8:13:00 EDT, Height, 122, kg, 05/02/22 15:20:00 EST, Dry Weight Start Date: 02/15/23 Status: Ordered Nicotrol Inhaler 10 mg inhalation device See Instructions, To use with nicotine cartridges in place of cigarettes, # 3 each, 0 Refills, Maintenance, 08/31/22 9:43:00 EDT, [place], [place] - [id number], Partial fill upon patient request if the [...] mL, 5 Refills, Maintenance, 04/05/23 18:38:00 EST, [facility], 163, cm, 03/15/23 8:28:00 EDT, Height, [...] Start Date: 01/31/20 Status: Ordered Potassium Chloride (Mjz-Ktix-Hyj M20) 20 mEq oral tablet, extended release 1 tablet, By Mouth, Daily, # 30 tablet, 6 Refills, Maintenance, 01/13/23 15:35:00 EDT, [facility], 163, cm, 12/22/22 8:54:00 EDT, Height, 122, kg, 05/02/22 15:20:00 EST, Dry Weight Start Date: 01/13/23 Status: Ordered pulse dose evaluation pulse dose evaluation, See Instructions, # 1 each, Refills 0, Tot. Refills 0, Maintenance, Pulse Dose Evaluation dx: copd,chf 150.9, j44.9, 01/31/20 16:26:00 EDT, Supply Start Date: 01/31/20 Status: Ordered Roflumilast 500 mcg oral tablet 1 tablet, By Mouth, Daily, # 30 tablet, 6 Refills, Maintenance, 01/13/23 15:35:00 EDT, [facility], 163, cm, 12/22/22 8:54:00 EDT, Height, 122, kg, 05/02/22 15:20:00 EST, Dry Weight Start Date: 01/13/23 Status: Ordered roflumilast 500 mcg tablet roflumilast [...] 08/18/22, # 45 tablet, 5 Refills, Maintenance, 02/23/23 13:56:00 EDT, [place], [place] - [id number], please dispense in bubble pack. dose increase... Start Date: 02/23/23 Status: Ordered square orthopedic pillow with central square depression and surrounding bolster square orthopedic pillow with central square depression and surrounding bolster, See Instructions, # 1 each, Refills 0, Tot. Refills 0, Maintenance, Product number [id number] Dx codes: M54.2 Duration: lifetime, 07/21/22 14:25:00 EST, Supply Start Date: 07/21/22 Status: Ordered traZODone 150 mg oral tablet 3 tablet, By Mouth, Daily at bedtime, # 270 tablet, 6 Refills, 10/26/22 10:18:00 EDT, [place], [place] - [id number], 163, cm, 10/14/22 8:43:00 EDT, Height, 122, kg, 05/02/22 15:20:00EST, Dry Weight Start Date: 10/26/22 Status: Ordered Trelegy Ellipta 200 mcg-62.5 mcg-25 mcg/inh inhalation powder 1 puffs, Inhalation, Daily, at the same time every day, # 9 each, 3 Refills, Maintenance, 08/31/22 9:41:00 EDT, Powder, [place], [place] - [id number], Partial fill upon patient request if the prescription is for a schedule II opioid d... Start Date: 08/31/22 Status: Ordered value series power lift chair [id number] value series power lift chair [id number], See Instructions, # 1 each, Refills 0, Tot. Refills 0, Maintenance, Diagnosis codes: G89.29, M19.90, J44.9, Z74.09, 01/30/20 9:31:00 EDT, Supply Start Date: 01/30/20 Status: Ordered Ventolin HFA 108 mcg/inh inhalation aerosol with adapter 2 puffs, Inhalation, 4 times a day, PRN NEEDED FOR SHORTNESS OF BREATH OR FOR WHEEZING, # 18 Gm,5 Refills, Maintenance, 04/13/23 13:49:00 EST, [facility], 163, cm, 04/12/23 8:10:00 EST, Height, [...] 4, 5 Confirmed Active BHN/CCA/CP-Jo Ann Harvey [phone]/Health nursing home active care coordination Confirmed Active BHN/CCA/LCC Lisa Gutierrez [phone]/Health nursing home active care coordination Confirmed Active Severe obesity [...] Care Team Personnel Name: Kwame Bolton Position: [facility] PCO Associate Professional Member Role: PCP Address: Address: [address] [place] [address] [place] [address]- Name: Perri Perry RN Position: [facility] RN Member Role: Primary Care Nurse Name: Alicia Vallecillo RN Position: [facility] RN Member Role: Primary Care Nurse Name: Maureen Smith RN Position: [facility] RN Member Role: Primary Care Nurse Name: Sultana Broussard RN Position: [facility] RN Member Role: Primary Care Nurse Name: bAigail Dior RN Position: [facility] RN Member Role: Primary Care Nurse Name: Ivette Carter RN Position: [facility] RN Member Role: Primary Care Nurse Name: Rukhsana Matthews RN Position: [facility] Hospital Funeral Planner Member Role: Primary Care Nurse Care Team Related Persons Name: ELLIOTT MENDOZAT Address: [place] [address] Name: MARIA TERESA UMAÑA Address: home [address] [place] [address] Name: ANG GAFFNEY Address: home [address] [place] [address] Name: CHILO AHMADI Address: home [address] [address]
--- OUTSIDE RECORDS SUMMARY | 2023-09-15 07:37 | XMS_ITS | Continuity of Care Document ---
Author Organization [facility] Address [address] [place] [address]- Care Team Providers Care Vegetable Loader Name Role Phone Kwame Bolton Primary Care Physician Encounter [facility] Date(s): 08/10/23 - 09/10/23 [facility] [address] [place], [place] [phone] Attending Physician: Kel Perez Admitting Physician: Kel Perez Allergies, Adverse Reactions, Alerts Substance Reaction Severity Status FIRST Metronidazole 1 vomiting, diarrhea, dyspnea Pers istent Moderate Active Lobster throat tightening; vomiting Active Shrimp throat tightening; vomiting Active Other Environmental Allergy Seasonal Allergies Active 1VOMITING DIARRHEA,SEVERE DYPNEA Immunizations Given and [...] vaccine, inactivated 5 02/26/09 Gi cecile SARS-CoV-2(COVID-19)mRNA-LNP vac(gsm437) 02/25/23 Recorded SARS-CoV-2 (COVID-19) mRNA-1273 vaccine 6 [...] 1Result Comment: [02/16/2023] Given at [facility] Averecord can be obtained from [facility] 2Result Comment: [02/22/2017] [facility] [phone] 3Admin Note: flulaval vis given vis date 11/16/2011 4Admin Note: VIS GIVEN VIS DATE 12/24/2009 5Admin Note: VIS GIVEN 12/25/08 maori 6Result Comment: new booster 7Result Comment: dose 2 8Result Comment: dose 1 9Result Comment: Received at [facility] on [facility] in [place] 10Admin Note: vis given 11Admin Note: vis given 12Result Comment: [id number] exp 06/2009 13Admin Note: vis given Medications [...] EST, Compound Start Date: 07/12/19 Status: Ordered [place] Saline 0.65% nasal gel 1 sprays, Nares, Both, 4 times a day, # 22.5 Gm, 1 Refills, Maintenance, 08/20/23 15:42:00 EDT, [facility] [id number], Partial fill upon patient request if the prescription is for a schedule II opioid drug., 1 sprays Nares, Kilo... Start Date: 08/20/23 Status: Ordered B-Complex with B-12 oral tablet See Instructions, TAKE 1 TABLET BY MOUTH ONCE DAILY WITH FOOD, # 90 tablet, 1 Refills, Maintenance,05/28/23 17:52:00 EST, [facility] [phone], 90, TAKE 1 TABLET BY MOUTH ONCE DAILY WITH FOOD, 163, cm, 05/06/23 8:47:00 EST,... Start Date: 05/28/23 Status: Ordered Biotene Moisturizing Mouth oral spray 1 sprays, By Mouth, 6 times a day, BIOTENE NAME BRAND MAY BE REQUIRED, # 240 mL, 5 Refills, Maintenance, 11/18/22 8:47:00 EDT, [facility] [id number], Partial fill upon patient request if the prescription is for a schedule II o... Start Date: 11/18/22 Status: Ordered Cane See Instructions, # 1 each, Maintenance, DX LEFT KNEE PAIN /ACL TEAR /ARTHRITIS DX CODE M25.562 HT 163 CM WT 123 KG DURATION -LIETIME PATIENTS CANE BROKE, 01/06/19 8:36:49 EDT, Compound Start Date: 01/06/19 Status: Ordered Comfort EZ Pen Rupert 32 gauge x 5/32 Comfort EZ Pen Rupert 32 gauge x 5/32 , See Instructions, [...] Refills, Maintenance, 03/17/23 9:55:00 EDT, [facility] [id number], Partial fill upon patient request if the prescription is for a schedule II... Start Date: 03/17/23 Status: Ordered docusate sodium 100 mg oral capsule 1 capsule, By Mouth, 2 times a day, # 60 each, 5 Refills, Maintenance, 05/14/23 10:27:00 EST, [facility], 163, cm, 05/06/23 8:47:00 EST, Height, 122, kg, 05/02/22 15:20:00 EST, Dry Weight Start Date: 05/14/23 Status: Ordered Ear Pain MD 4% otic liquid 2 drops, Ears, Both, 3 times a day, PRN Pain , Moderate, # 12.5 mL, 0 Refills, Maintenance, 01/04/23 21:24:00 EDT, [facility] [phone], Partial fill upon patient request ifthe prescription [...] tablet, 5 Refills, Maintenance, 05/27/23 18:43:00 EST, [facility], 163, cm, 05/06/23 8:47:00 EST, Height, 122, kg, 05/02/22 15:20:00 EST, Dry Weight Start Date: 05/27/23 Status: Ordered fluticasone 50 mcg/inh nasal spray 1 sprays, Nares, Both, Daily, # 16 Gm, 2 Refills, Maintenance, 07/13/23 18:31:00 EST, [facility] [place], [place] - [id number], Partial fill upon patient request if the prescription is for a schedule II opioid drug., 1 sprays Nares, Both Daily,... Start Date: 07/13/23 Status: Ordered furosemide 40 mg oral tablet 1, tablet, By Mouth, 2 times a day, # 60 tablet, Refills 5, Maintenance, 04/13/23 13:49:00 EST, Route to Pharmacy Electronically, [facility], 163, cm, 04/12/23 8:10:00 EST, Height, [...] tablet, 2 Refills, Maintenance, 02/15/23 18:46:00 EDT, [facility], 163, cm, 01/20/23 8:13:00 EDT, Height, 122, kg, 05/02/22 15:20:00 EST, Dry Weight Start Date: 02/15/23 Status: Ordered magnesium gluconate 250 mg oral tablet 1 tablet = 250 mg, By Mouth, 2 times a day, # 60 tablet, 2 Refills, Maintenance, 09/06/23 8:23:00 EDT, [facility] [phone], Partial fill upon patient request if the prescription is for a schedule II opioid drug., 1 tablet By... Start Date: 09/06/23 Status: Ordered MiraLax oral powder for reconstitution = 17 Gm, By Mouth, Daily, PRN Constipation, dissolve in 4 to 8 oz of beverage, # 30 each, 5 Refills, Maintenance, 09/06/23 8:24:00 EDT, [facility] [id number], Partial fill upon patient request if the prescription is for a sche... Start Date: 09/06/23 Status: Ordered Nicotrol Inhaler 10 mg inhalation device See Instructions, To use with nicotine cartridges in place of cigarettes, # 3 each, 0 Refills, Maintenance, 08/31/22 9:43:00 EDT, [facility] [phone], Partial fill upon patient request if the prescription is for a schedule I... Start Date: 08/31/22 Status: Ordered NO RINSE SHAMPOO CAP NO RINSE SHAMPOO CAP, See Instructions, # 15 each, Refills 11, Tot. Refills 11, Maintenance, DX: CHF WEAKNESS 150.9 R53.1, 11/28/18 9:21:33 EDT, Compound Start Date: 11/28/18 Status: Ordered NuLYTELY Lemon Cheesh-Na oral powder for reconstitution See Instructions, Stay on clear liquid diet ALL DAY the day BEFORE the procedure. Drink half the dose the evening before, and the other half early in the morning on the day of the procedure., # 1 kit, 0 Refills, Maintenance, 09/02/23 20:35:00 EDT, RE... Start Date: 09/02/23 Status: Ordered o2 o2, See Instructions, # [...] EDT, Supply Start Date: 02/28/21 Status: Ordered oxyCODONE 5 mg oral tablet 10 mg, 2, tablet, By Mouth, 3 times a day, for 28 days, for severe pain may obtain fewer, # 168 tablet, Refills 0, Tot. Refills 0, Acute 10/04/23 8:27:00 EDT, 09/06/23 8:27:00 EDT, Route to Pharmacy Electronically, [facility] [place] [place] -... Start Date: 09/06/23 Stop Date: 10/04/23 Status: Ordered Ozempic 2 mg/3 mL (0.25 mg or 0.5 mg dose) subcutaneous solution See Instructions, INJECT 0.5mg UNDER THE SKIN EVERY WEEK, # 3 mL, 5 Refills, Maintenance, 04/05/23 18:38:00 EST, [facility], 163, cm, 03/15/23 8:28:00 EDT, Height, [...] Start Date: 01/31/20 Status: Ordered Potassium Chloride (Qto-Ckfu-Oen M20) 20 mEq oral tablet, extended release 1 tablet, By Mouth, Daily, # 30 tablet, 2 Refills, Maintenance, 08/13/23 15:40:00 EDT, [facility] [phone], 163, cm, 08/13/23 13:24:00 EDT, Height, 122, kg, 05/02/22 15:20:00 EST, Dry Weight Start Date: 08/13/23 Status: Ordered pulse dose evaluation pulse dose evaluation, See Instructions, # 1 each, Refills 0, Tot. Refills 0, Maintenance, Pulse Dose Evaluation dx: copd,chf 150.9, j44.9, 01/31/20 16:26:00 EDT, Supply Start Date: 01/31/20 Status: Ordered Readi-Cat 2 Smoothie Banana 2% oral suspension See Instructions, As directed construction rigger to CT, # 900 mL, 0 Refills, Maintenance, 08/18/23 10:48:00 EDT, [facility] 3, Partial fill upon patient request if the prescription is for a scheduleII opioid drug., As directed construction rigger to CT, 163, cm... Start Date: 08/18/23 Status: Ordered Roflumilast 500 mcg oral tablet 1 tablet, By Mouth, Daily, # 30 tablet, 2 Refills, Maintenance, 08/13/23 15:40:00 EDT, [facility] [id number], 163, cm, 08/13/23 13:24:00 EDT, Height, 122, [...] tablet, 5 Refills, Maintenance, 07/13/23 18:30:00 EST, [place], [place] - [id number], please dispense in bubble pack. dose increase... Start Date: 07/13/23 Status: Ordered square orthopedic pillow with central square depression and surrounding bolster square orthopedic pillow with central square depression and surrounding bolster, See Instructions, # 1 each, Refills 0, Tot. Refills 0, Maintenance, Product number [id number] Dx codes: M54.2 Duration: lifetime, 09/07/23 8:13:00 EDT, Supply Start Date: 09/07/23 Status: Ordered traZODone 150 mg oral tablet 3 tablet, By Mouth, Daily at bedtime, # 270 tablet, 6 Refills, 10/26/22 10:18:00 EDT, [facility] [phone], 163, cm, 10/14/22 8:43:00 EDT, Height, 122, kg, 05/02/22 15:20:00EST, Dry Weight Start Date: 10/26/22 Status: Ordered Trelegy Ellipta 200 mcg-62.5 mcg-25 mcg/inh inhalation powder See Instructions, INHALE 1 PUFF BY MOUTH INTO THE lungs ONCE DAILY AT THE same TIME EVERY DAY, # 60Unknown, 5 Refills, Maintenance, 09/08/23 12:40:00 EDT, [facility], 30, INHALE 1 PUFF BY MOUTHINTO THE lungs ONCE DAILY AT THE same TIME EVERY DA... Start Date: 09/08/23 Status: Ordered value series power lift chair [id number] value series power lift chair [id number], See Instructions, # 1 each, Refills 0, Tot. Refills 0, Maintenance, Diagnosis codes: G89.29, M19.90, J44.9, Z74.09, 01/30/20 9:31:00 EDT, Supply Start Date: 01/30/20 Status: Ordered Ventolin HFA 108 mcg/inh inhalation aerosol with adapter 2 puffs, Inhalation, 4 times a day, PRN NEEDED FOR SHORTNESS OF BREATH OR FOR WHEEZING, # 18 Gm,5 Refills, Maintenance, 04/13/23 13:49:00 EST, [facility], 163, cm, 04/12/23 8:10:00 EST, Height, [...] Obstructive sleep apnea 4, 5 Confirmed Active Pelvic pain Confirmed Active BHN/CCA/CP-Jo Ann Harvey [phone]/[facility] active care coordination Confirmed Active BHN/CCA/LCC Lisa Gutierrez [phone]/[facility] active care coordination Confirmed Active Severe obesity [...] Care Team Personnel Name: Kwame Bolton Position: [facility] PCO Associate Professional Member Role: PCP Address: Address: [address] [place] [address] [place] [address]- Name: Perri Perry RN Position: [facility] RN Member Role: Primary Care Nurse Name: Alicia Vallecillo RN Position: [facility] RN Member Role: Primary Care Nurse Name: Андрей Boo RN Position: [facility] Outreach Member Role: Primary Care Nurse Name: Maureen Smith RN Position: [facility] RN Member Role: Primary Care Nurse Name: Sultana Broussard RN Position: [facility] RN Member Role: Primary Care Nurse Name: Abigail Dior RN Position: [facility] RN Member Role: Primary Care Nurse Name: Ivette Carter RN Position: [facility] RN Member Role: Primary Care Nurse Name: Rukhsana Matthews RN Position: [facility] Hospital Director Of Food And Nutrition Services Member Role: Primary Care Nurse Care Team Related Persons Name: TANA MENDOZA Address: [place] [address] Name: MARIA TERESA UMAÑA Address: home [address] [place] [address] Name: ANG GAFFNEY Address: home [address] [place] [address] Name: CHILO AHMADI Address: home [address] [address]
--- OUTSIDE RECORDS SUMMARY | 2023-09-15 07:37 | XMS_ITS | Continuity of Care Document ---
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 Name Role Phone Kwame Bolton Primary Care Physician [facility] 09[facility]19 - 09/28/19 [facility] [address] [place] [address]- [facility] Attending Physician: Stoney Braxton MD Allergies, Adverse Reactions, Alerts Substance Reaction [...] Vaccine (oldterm) 08/08/06 Given 1Result Comment: [02/22/2017] [facility] [id number] 2Admin Note: flulaval vis given vis date 11/16/2011 3Admin Note: VIS GIVEN VIS DATE 12/24/2009 4Admin Note: VIS GIVEN 12/25/08 german 5Result Comment: [01/03/2018 Uncharted] ERROR NOT GIVEN 6Result Comment: [id number] exp 06/2009 7Admin Note: vis given 8Admin [...] 08/16/19 15:54:00 EDT, Route to Pharmacy Electronically, [place], [place] -, 163, cm, 07/11/19 13:24:00 ESTWin... [...] 5 Refills, Maintenance, 08/16/19 15:52:00 EDT, Powder, [place], [place] -, 1 puffs Inhalation Daily,Instr:[place] well [...] Acute 02/12/20 15:52:00 EDT, 08/16/19 15:52:00 EDT, [place], [place] -, 163, cm, 07/11/19 13:24:00 EST,Height, 114, kg, 04/19/18 23:58:00 EST, Dry Weight Start Date: 08/16/19 Stop Date: 02/12/20 Status: Ordered clonazePAM 0.5 mg oral tablet 2 tablet = 1 mg, By Mouth, 2 times a day, dose increased to 2 tabs bid 05/2018, # 120 tablet, 2 Refills, Maintenance, 08/16/19 15:49:00 EDT, [place], [place] -, 163, cm, 07/11/19 13:24:00 EST, Height, 114, kg, 04/19/18 23:58:00 EST, D... Start Date: 08/16/19 Stop Date: 11/14/19 Status: Ordered Daliresp 500 mcg oral tablet See Instructions, 1 tablet By Mouth Daily, # 30 each, 6 Refills, Maintenance, 08/16/19 15:51:00 EDT, [place], [place] -, 163, cm, 07/11/19 13:24:00 EST, [...] Maintenance, 08/15/2014:51:00 EDT, Route to Pharmacy Electronically, [place], [place] -, 163, cm, 07/11/19 13:24:00 EST, [...] Gm, 5 Refills, Maintenance, 08/16/19 15:53:00 EDT, [place], [place] -, 1 sprays Nares, Both 2 times a day, 163, cm, 07/11/19 13:24:00 EST, Height, 114, kg, 04/19/18 23:58:00 EST, Dry Weight Start Date: 08/16/19 Status: Ordered furosemide 40 mg oral tablet 40 mg, 1, tablet, By Mouth, 2 times a day, # 60 tablet, Refills 5, Tot. Refills 5, Maintenance, 08/16/19 15:51:00 EDT, Route to Pharmacy Electronically, [place], [place] -, 163, cm, 07/11/19 13:24:00 EST, Height, 114, kg, 04/19/18 23:... Start Date: 08/16/19 Stop Date: 02/12/20 Status: Ordered guaiFENesin 100 mg/5 mL oral liquid 20 mL = 400 mg, By Mouth, Every 6 hours, PRN Cough and Congestion, with fluids, # 240 mL, 0 Refills, Maintenance, 09/28/19 14:14:00 EDT, [place], [place] -, 163, cm, 07/11/19 13:24:00 EST, [...] 09/06/19 15:51:00 EDT, Route to Pharmacy Electronically, [place], [place] -, 163, cm, 07/11/19 13:24... Start [...] 09/28/19 14:13:00 EDT, Route to Pharmacy Electronically, [place], [place] -, 163, cm, 07/11/2012:24:00 EST, Height, [...] tablet, 5 Refills, Maintenance, 08/16/19 15:50:00 EDT, [place], [place] -, 163, cm, 07/11/19 13:24:00 EST, Height, 114, kg, 04/19/18 23:58:00EST, Dry Weight Start Date: 08/16/19 Status: Ordered pregabalin 25 mg oral capsule 1 capsule = 25 mg, By Mouth, 3 times a day, for chronic pain. please stop tizanidine., # 90 capsule, 2 Refills, Maintenance, 09/21/19 15:58:00 EDT, [place], [place] -, 163, cm, 07/11/19 13:24:00 EST, Height, 114, kg, 04/19/18 23:58:00... Start Date: 09/21/19 Status: Ordered pregabalin 50 mg oral capsule 1 capsule = 50 mg, By Mouth, 3 times a day, dose increase 50 tid 09/28/2019, # 90 capsule, 0 Refills, Maintenance, 09/28/19 14:16:00 EDT, [place], [place] -, 163, cm, 07/11/19 13:24:00 EST, Height, 114, kg, 04/19/18 23:58:00 EST, Dry W... Start Date: 09/28/19 Status: Ordered traZODone 150 mg oral tablet 3 tablet = 450 mg, By Mouth, Daily at bedtime, Please d/c order for 300mg qhs. Correct dose 450mg qhs., # 90 tablet, 5 Refills, Maintenance, 08/16/19 15:52:00 EDT, [place], [place] -, 163, cm, 07/11/19 13:24:00 EST, Height, 114, kg, 1... Start Date: 08/16/19 Status: Ordered triamcinolone 0.025% topical cream 1 applicator, Topically, 3 times a day, PRN eczema, # 80 Gm, 2 Refills, Maintenance, 08/16/19 15:48:00 EDT, [place], [place] -, 1 applicator Topically 3 times a day,PRN:eczema, 163, cm, 07/11/19 13:24:00 EST, Height, 114, kg, 04/19/18... Start Date: 08/16/19 Status: Ordered Ventolin HFA 108 mcg/inh inhalation aerosol with adapter 2 puffs, Inhalation, 4 times a day, PRN Wheezing/Shortness of Breath, 90 days supply, # 1 each, 5 Refills, Maintenance, 08/16/19 15:53:00 EDT, [place], [place] -, 163, cm, 07/11/19 13:24:00 EST, Height, 114, kg, 04/19/18 23:58:00 EST,... Start Date: 08/16/19 Status: Ordered verapamil 120 mg oral tablet 1 tablet = 120 mg, By Mouth, 3 times a day, dose increase 120 tid 09/28/2019., # 90 tablet, 0 Refills, Maintenance, 09/28/19 14:28:00 EDT, [place], [place] -, 163, cm, 07/11/19 13:24:00 EST, Height, 114, kg, 04/19/18 23:58:00 EST, Dry... Start Date: 09/28/19 Status: Ordered verapamil 80 mg oral tablet 1 tablet = 80 mg, By Mouth, 3 times a day, dose increase 09/21/2019. for migraine prevention, # 90 tablet, 2 Refills, Maintenance, 09/21/19 15:40:00 EDT, [place], [place] -, 163, cm, 07/11/19 13:24:00 EST, Height, 114, kg, 04/19/18 23:5... Start Date: 09/21/19 Status: Ordered Vitamin D3 1000 intl units oral tablet 1 tablet = 1,000 International_Units, By Mouth, Daily, # 90 tablet, 3 Refills, Maintenance, 08/16/19 15:51:00 EDT, [place], [place] -, 163, cm, 07/11/19 13:24:00 EST, [...]
--- OUTSIDE RECORDS SUMMARY | 2023-09-15 07:37 | XMS_ITS | Continuity of Care Document ---
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 [id number] 2Admin Note: flulaval vis given vis date 11/16/2011 3Admin Note: VIS GIVEN VIS DATE 12/24/2009 4Admin Note: VIS GIVEN 12/25/08 nigerian 5Result Comment: [01/03/2018 Uncharted] ERROR NOT GIVEN 6Result Comment: [id number] exp 06/2009 7Admin Note: vis given 8Admin Note: vis given 9Admin Note: vis given Medications 02 2L via [...] 5 Refills, Maintenance, 08/16/19 15:52:00 EDT, Powder, [facility] - [place], [place] -, 1 puffs Inhalation Daily,Instr:[place] well after each use, 163, cm, 07/11/19 13:24:... Start Date: 08/16/19 Status: Ordered Cane See Instructions, # 1 each, Maintenance, DX LEFT KNEE PAIN /ACL TEAR /ARTHRITIS DX CODE M25.562 HT 163 CM WT 123 KG DURATION -LIETIME PATIENTS VERA BOYKIN, 01/06/19 8:36:49 EDT, Compound Start Date: 01/06/19 Status: Ordered clonazePAM 0.5 mg oral tablet 2 tablet = 1 mg, By Mouth, 2 times a day, dose increased to 2 tabs bid 05/2018, # 120 tablet, 2 Refills, Maintenance, 11/22/19 8:21:00 EDT, [place], [place] -, 163, cm, 07/11/19 13:24:00 EST, Height, 114, kg, 04/19/18 23:58:00 EST, DrJennyfer.. Start Date: 11/22/19 Stop Date: 02/20/20 Status: Ordered Daliresp 500 mcg oral tablet See Instructions, 1 tablet By Mouth Daily, # 30 each, 6 Refills, Maintenance, 08/16/19 15:51:00 EDT, [place], [place] -, 163, cm, 07/11/19 13:24:00 EST, [...] 12/15/19 10:10:00 EDT, Route to Pharmacy Electronically, [place], [place] - [id number], 163, cm, 07/11/19 13:24:00 EST, Height, 114, kg... Start Date: 12/15/19 Status: Ordered Electric Neck Shawl Heating Pad [...] Gm, 5 Refills, Maintenance, 08/16/19 15:53:00 EDT, [place], [place] -, 1 sprays Nares, Both 2 times a day, 163, cm, 07/11/19 13:24:00 EST, Height, 114, kg, 04/19/18 23:58:00 EST, Dry Weight Start Date: 08/16/19 Status: Ordered furosemide 40 mg oral tablet 40 mg, 1, tablet, By Mouth, 2 times a day, # 60 tablet, Refills 5, Tot. Refills 5, Maintenance, 08/16/19 15:51:00 EDT, Route to Pharmacy Electronically, [place], [place] -, 163, cm, 07/11/19 13:24:00 EST, Height, 114, kg, 04/19/18 23:... Start Date: 08/16/19 Stop Date: 02/12/20 Status: Ordered guaiFENesin 100 mg/5 mL oral liquid 20 mL = 400 mg, By Mouth, Every 6 hours, PRN Cough and Congestion, with fluids, # 240 mL, 0 Refills, Maintenance, 09/28/19 14:14:00 EDT, [place], [place] -, 163, cm, 07/11/19 13:24:00 EST, [...] food or milk, # 60 each, Refills 5, Tot. Refills 5, Maintenance, Pain , Severe, 12/05/19 8:40:00 EDT, Route to Pharmacy Electronically, [place], [place] -, 163, cm, 07/11/19 13:24:... Start Date: 12/05/19 Status: Ordered INCONCTINENCE LINERS SUPER ABSORBANT INCONCTINENCE LINERS SUPER ABSORBANT, See Instructions, # 180 each, Refills 11, Tot. Refills 11, Maintenance, DX MIXED INCONTINENCE N39.46 6 PER DAY, 01/18/19 14:01:45 EDT, Compound Start Date: 01/18/19 Status: Ordered Klor-Con M20 20 mEq oral tablet, extended release See Instructions, TAKE 1 TABLET BY MOUTH EVERY DAY, # 30 tablet, 5 Refills, 11/13/19 14:32:00 EDT, [place], [place] -, 163, cm, 07/11/19 13:24:00 EST, Height, 114, kg, 04/19/18 23:58:00 EST, Dry Weight Start Date: 11/13/19 Status: Ordered Locking Bathtub Grab Bar Locking [...] 01/18/20 15:46:00 EDT, [id number] 163, cm, 07/11/19 13:24:00 EST, Height, [...] 12/26/19 16:58:00 EDT, Route to Pharmacy Electronically, [place], [place] - [id number], 163, cm, 07/11/19 13:24:00 EST, Height, 114, kg,... Start Date: 12/26/19 Status: Ordered portable oxygen concentrator portable oxygen concentrator, See Instructions, # 1 each, Refills 0, Tot. Refills 0, Maintenance, Dx severe COPD. Codes J44.9, R09.02, 01/31/20 16:26:00 EDT, Compound Start Date: 01/31/20 Status: Ordered potassium chloride 20 mEq oral tablet, extended release 1 tablet = 20 mEq, By Mouth, Daily, # 30 tablet, 5 Refills, Maintenance, 08/16/19 15:50:00 EDT, [place], [place] -, 163, cm, 07/11/19 13:24:00 EST, Height, 114, kg, 04/19/18 23:58:00EST, Dry Weight Start Date: 08/16/19 Status: Ordered predniSONE 20 mg oral tablet 1 tablet = 20 mg, By Mouth, Daily in AM, # 7 tablet, 0 Refills, Maintenance, 02/15/20 9:45:00 EDT, [facility], [facility] [id number], 163, cm, 07/11/19 13:24:00 EST, Height, 114, kg, 04/19/18 23:58:00 EST, Dry Weight Start Date: 02/15/20 Stop Date: 02/22/20 Status: Ordered pregabalin 25 mg oral capsule See Instructions, 1 capsule 3 times a day for a week, then 1 capsule 2 times a day for a week, then1 capsule a day for 1 week then stop., # 43 each, 0 Refills, Maintenance, 01/17/20 11:36:00 EDT, [facility], [facility] [id number], 163, c... Start Date: 01/17/20 Status: Ordered pulse dose evaluation pulse dose evaluation, See Instructions, # 1 each, Refills 0, Tot. Refills 0, Maintenance, Pulse Dose Evaluation dx: copd,chf 150.9, j44.9, 01/31/20 16:26:00 EDT, Supply Start Date: 01/31/20 Status: Ordered Shingrix intramuscular injection = 0.5 mL, Intramuscular, Once, repeat dose in 2 to 6 months, # 2 each, 0 Refills, Soft Stop, 01/17/20 11:40:00 EDT, Powder, [facility]/pharmacy #[id number], 0.5 mL Intramuscular Once,Instr:repeat dose in [...] week., # 9 tablet, 0 Refills, Maintenance, 02/15/20 9:58:00 EDT, Tablet, [place], [place] -... Start Date: 02/15/20 Status: Ordered traZODone 150 mg oral tablet 3 tablet = 450 mg, By Mouth, Daily at bedtime, Please d/c order for 300mg qhs. Correct dose 450mg qhs., # 90 tablet, 5 Refills, Maintenance, 08/16/19 15:52:00 EDT, [place], [place] -, 163, cm, 07/11/19 13:24:00 EST, Height, 114, kg, 1... Start Date: 08/16/19 Status: Ordered triamcinolone 0.025% topical cream 1 applicator, Topically, 3 times a day, PRN eczema, # 80 Gm, 2 Refills, Maintenance, 08/16/19 15:48:00 EDT, [place], [place] -, 1 applicator Topically 3 times a day,PRN:eczema, 163, cm, 07/11/19 13:24:00 EST, Height, 114, kg, 04/19/18... Start Date: 08/16/19 Status: Ordered value series power lift chair [id number] value series power lift chair [id number], See Instructions, # 1 each, Refills 0, Tot. Refills 0, Maintenance, Diagnosis codes: G89.29, M19.90, J44.9, Z74.09, 01/30/20 9:31:00 EDT, Supply Start Date: 01/30/20 Status: Ordered Ventolin HFA 108 mcg/inh inhalation aerosol with adapter 2 puffs, Inhalation, 4 times a day, PRN Wheezing/Shortness of Breath, 90 days supply, # 1 each, 5 Refills, Maintenance, 08/16/19 15:53:00 EDT, [place], [place] -, 163, cm, 07/11/19 13:24:00 EST, Height, 114, kg, 04/19/18 23:58:00 EST,... Start Date: 08/16/19 Status: Ordered verapamil 120 mg oral tablet 1 tablet = 120 mg, By Mouth, 3 times a day, dose increase 120 tid 09/28/2019., # 90 tablet, 5 Refills, Maintenance, 11/13/19 14:41:00 EDT, [place], [place] -, 163, cm, 07/11/19 13:24:00 EST, Height, 114, kg, 04/19/18 23:58:00 EST, Dry... Start Date: 11/13/19 Status: Ordered Vitamin D3 1000 intl units oral tablet 1 tablet = 1,000 International_Units, By Mouth, Daily, # 90 tablet, 3 Refills, Maintenance, 08/16/19 15:51:00 EDT, [place], [place] -, 163, cm, 07/11/19 13:24:00 EST, [...] Obstructive sleep apnea(Confirmed) 4, 5 Active *BHN/CCA/BHCP/LCC-Ramesh Fox, (Confirmed) Active 1Health Care Agent: Fatmata Porter, [...]
--- OUTSIDE RECORDS SUMMARY | 2023-09-15 07:37 | XMS_ITS | Continuity of Care Document ---
Author Organization [facility] Address [address] [place] [address]- Care Team Providers Care Coil Tester Name Role Phone Kwame Bolton Primary Care Physician [facility] Date[facility]s): 08[facility]28[facility]20 - 09/29/20 [facility] [address] [place] [id number]- Attending Physician: Kwame Bolton Admitting Physician: Kwame Bolton Allergies, Adverse Reactions, Alerts [...] Comment: Received at [facility] on [facility] in [place] 4Admin Note: vis given 5Admin Note: vis given 6Result Comment: [02/22/2017] [facility] [id number] 7Admin Note: flulaval vis given vis date 11/16/2011 8Admin Note: VIS GIVEN VIS DATE 12/24/2009 9Admin Note: VIS GIVEN 12/25/08 polish 10Result Comment: [01/03/2018 Uncharted] ERROR NOT GIVEN 11Result Comment: [id number] exp 06/2009 12Admin Note: vis given Medications [...] each, 5 Refills, Maintenance, 06/11/20 11:38:00 EST, [facility] - [place], [place] - [id number], 1 sprays By Mouth 6 times a day,Instr:please dispense 2 bottles per month... Start Date: 06/11/20 Status: Ordered Breo Ellipta 200 mcg-25 mcg/inh inhalation powder See Instructions, INHALE 1 PUFF BY MOUTH INTO THE lungs DAILY. rinse mouth and throat after use, # 60 Unknown, 11 Refills, 03/27/20 10:56:00 EST, [facility], [facility] [id number], 30, INHALE 1 PUFF BY MOUTH INTO [...] day, # 56 tablet, 0 Refills, Acute, 09/11/20 11:03:00 EDT, [facility], 163, cm, 08/27/20 10:39:00 EDT, Height Start Date: 09/11/20 Status: Ordered clonazePAM 0.5 mg oral tablet 2 tablet = 1 mg, By Mouth, 2 times a day, # 120 tablet, 2 Refills, Maintenance, 07/09/20 16:30:00 EST, [facility], [place] - [id number], 163, cm, 07/08/20 9:27:00 EST, Height Start Date: 07/09/20 Stop Date: 10/07/20 Status: Ordered Daliresp 500 mcg oral tablet See Instructions, TAKE ONE TABLET BY MOUTH DAILY, # 30 tablet, 6 Refills, Maintenance, [facility], 163, cm, 03/05/20 13:58:00 EDT, Height, [...] 12/15/19 10:10:00 EDT, Route to Pharmacy Electronically, [facility] [id number], 163, cm, 07/11/19 13:24:00 EST, Height, 114, kg... Start Date: 12/15/19 Status: Ordered docusate sodium 100 mg oral capsule See Instructions, TAKE ONE CAPSULE BY MOUTH 2 (two) times a day, # 60 capsule, 5 Refills, 03/27/20 10:56:00 EST, [facility] [id number], 163, cm, 03/05/20 13:58:00 EDT, Height, 114, [...] Gm, 2 Refills, Maintenance, 09/24/20 14:53:00 EDT, [facility] [id number], 1 sprays Nares, Both 2 times a day, 163, cm, 09/24/20 13:25:00 EDT, Height Start Date: 09/24/20 Status: Ordered furosemide 40 mg oral tablet 40 mg, 1, tablet, By Mouth, 2 times a day, # 60 tablet, Refills 5, Tot. Refills 5, Maintenance, 08/05/20 13:27:00 EDT, Route to Pharmacy Electronically, [facility] [id number], 163, cm, 07/31/20 13:11:00 EDT, Height Start [...] 05/13/20 8:59:00 EST, Route to Pharmacy Electronically, [facility], 163, cm, 03/05/20 13:58:00 EDT, [...] 01/18/20 15:46:00 EDT, [id number], 163, cm, 07/11/19 13:24:00 EST, Height, 114, kg, 04/19/18 23:58:00 EST, Dry Weight Start Date: 01/18/20 Status: Ordered loratadine 10 mg oral tablet 10 mg, 1, tablet, By Mouth, Daily, # 10 tablet, Refills 0, Tot. Refills 0, Maintenance, 09/24/20 14:52:00 EDT, Route to Pharmacy Electronically, [place], [place] - [id number], Partial fill upon patient request if the [...] stomach, # 30 capsule, 2 Refills, Maintenance, 09/11/20 6:19:00 EDT, [facility], [place], [place] - [id number], Partial fill upon patient request if the prescription is for a schedule... Start Date: 09/11/20 Stop Date: 12/10/20 Status: Ordered open faced mask open faced mask, See Instructions, # 1 each, Refills 11, Tot. Refills 11, Maintenance, Codes G47.33, J44.9, 01/31/20 16:26:00 EDT, Compound Start Date: 01/31/20 Status: Ordered portable oxygen concentrator portable oxygen concentrator, See Instructions, # 1 each, Refills 0, Tot. Refills 0, Maintenance, Dx severe COPD. Codes J44.9, R09.02, 01/31/20 16:26:00 EDT, Compound Start Date: 01/31/20 Status: Ordered potassium chloride 20 mEq oral tablet, extended release 1 tablet, By Mouth, Daily, # 30 tablet, 5 Refills, Maintenance, 05/13/20 8:59:00 EST, [facility], 163, cm, 03/05/20 13:58:00 EDT, [...] each, 0 Refills, Maintenance, 08/29/20 19:11:00 EDT, [facility] [id number], Partial fill upon patient request if the prescription... Start Date: 08/29/20 Status: Ordered sertraline 50 mg oral tablet 1 tablet = 50 mg, By Mouth, Daily, please d/c 25mg tablet., # 30 tablet, 5 Refills, Maintenance, 09/24/20 14:52:00 EDT, [facility] [id number], Partial fill upon patient request if the prescription is for a schedule II opioid d... Start Date: 09/24/20 Status: Ordered Shingrix intramuscular injection = 0.5 mL, Intramuscular, Once, repeat dose in 2 to 6 months, # 2 each, 0 Refills, Soft Stop, 01/17/20 11:40:00 EDT, Powder, [facility]/pharmacy #[id number], 0.5 mL Intramuscular Once,Instr:repeat dose in 2 to 6 months, 163, cm, 07/11/19 13:24:00 EST, Height, 114,... Start Date: 01/17/20 Status: Ordered traZODone 150 mg oral tablet 3 tablet = 450 mg, By Mouth, Daily at bedtime, Please d/c order for 300mg qhs. Correct dose 450mg qhs., # 90 tablet, 5 Refills, Maintenance, 03/27/20 10:57:00 EST, [place], [place] -[id number], 163, cm, 03/05/20 13:58:00 EDT, Height,... Start Date: 03/27/20 Status: Ordered triamcinolone 0.025% topical cream 1 applicator, Topically, 3 times a day, PRN eczema, # 80 Gm, 2 Refills, Maintenance, 08/16/19 15:48:00 EDT, [place], [place] -, 1 applicator Topically 3 times a day,PRN:eczema, 163, cm, 07/11/19 13:24:00 EST, Height, 114, kg, 04/19/18... Start Date: 08/16/19 Status: Ordered value series power lift chair [id number] value series power lift chair [id number], See Instructions, # 1 each, Refills 0, Tot. Refills 0, Maintenance, Diagnosis codes: G89.29, M19.90, J44.9, Z74.09, 01/30/20 9:31:00 EDT, Supply Start Date: 01/30/20 Status: Ordered Ventolin HFA 108 mcg/inh inhalation aerosol with adapter 2 puffs, Inhalation, 4 times a day, PRN Wheezing/Shortness of Breath, 90 days supply, # 1 each, 5 Refills, Maintenance, 04/15/20 17:48:00 EST, [place], [place] - [id number], 163, cm,03/05/20 13:58:00 EDT, Height, 114, kg, 04/19/18 23... Start Date: 04/15/20 Status: Ordered Vitamin D3 1000 intl units oral tablet 1 tablet = 1,000 International_Units, By Mouth, Daily, # 90 tablet, 1 Refills, Maintenance, 08/10/20 15:51:00 EDT, [facility] [id number], 163, cm, 07/31/20 13:11:00 EDT, Height Start [...] apnea(Confirmed) 4, 5 Active BHN/CCA/CP-[facility] Harvey [phone]/Health shelter active care coordination(Confirmed) Active 1Health Care Agent: [...]
--- OUTSIDE RECORDS SUMMARY | 2023-09-15 07:37 | XMS_ITS | Continuity of Care Document ---
Author Organization [facility] ter Address [address] [place] [address]- Care Team Providers Care Cmm Inspector Name Role Phone Kwame Bolton Primary Care Physician Encounter [facility] ACCT R [id number] Date(s): 08/31/22 - 10/07/[address] [address] Attending Physician: Milton Cantu MD Admitting Physician: Milton Cantu MD Referring Physician: Lyndsay Marx DO Allergies, Adverse Reactions, Alerts Substance Reaction Severity [...] 3Result Comment: dose 1 4Result Comment: [02/22/2017] [facility] [id number] 5Admin Note: flulaval vis given vis date 11/16/2011 6Admin Note: VIS GIVEN VIS DATE 12/24/2009 7Admin Note: VIS GIVEN 12/25/08 estonian 8Result Comment: Received at [facility] on [facility] in [place] 9Admin Note: vis given 10Admin Note: vis given 11Result Comment: [01/03/2018 Uncharted] ERROR NOT GIVEN 12Result Comment: [id number] exp 06/2009 13Admin Note: vis given Medications [...] WITH FOOD, # 90 tablet, 3 Refills, [facility], 90, TAKE ONE TABLET BY MOUTH DAILY WITH FOOD, 163, cm, 09/26/21 13:20:00 EDT, Height Start Date: 12/15/21 Status: Ordered Biotene Moisturizing Mouth oral spray 1 sprays, By Mouth, 6 times a day, BIOTENE NAME BRAND MAY BE REQUIRED, # 240 mL, 1 Refills, Maintenance, 09/17/22 10:19:00 EDT, [facility] [id number], Partial fill upon patient request if the prescription is for a schedule II... Start Date: 09/17/22 Status: Ordered busPIRone 10 mg oral tablet 10 mg, 1, tablet, By Mouth, 3 times a day, for anxiety, # 90 tablet, Refills 0, Tot. Refills 0, Maintenance, 03/03/22 14:49:00 EDT, Route to Pharmacy Electronically, [facility] [phone], Partial fill upon patient request if... Start [...] mL, 1 Refills, Maintenance, 03/03/22 14:52:00 EDT, [facility] [id number], Partial fill uponpatient request if the prescription is for a schedu... Start Date: 03/03/22 Status: Ordered Comfort EZ Pen [place] 32 gauge x 5/32 Comfort EZ Pen [place] 32 gauge x 5/32 , See Instructions, # 50 Unknown, 11 Refills, USE DAILY WITHvictoza injection, 163, cm, 03/25/21 9:16:00 EST, Height Start Date: 04/01/21 Status: Ordered Comfort EZ Pen [place] 32 gauge x 5/32 Comfort EZ Pen [place] 32 gauge x 5/32 , See Instructions, # 50 Unknown, 0 Refills, USE DAILY WITH victoza injection, 163, cm, 12/18/20 9:01:00 EDT, Height Start Date: 02/05/21 Status: Ordered Comfort EZ Pen [place] 32 gauge x 5/32 Comfort EZ Pen [place] 32 gauge x 5/32 , See Instructions, # 50 Unknown, 11 Refills, Maintenance, USE DAILY WITH victoza injection, 06/04/22 11:52:00 EST, 164, cm, 06/02/22 16:10:00 EST, Height, 122,kg, 05/02/22 15:20:00 EST, Dry Weight Start Date: 06/04/22 Status: Ordered D3 1000 intl units (25 mcg) oral tablet 1 tablet, By Mouth, Daily, # 30 tablet, 5 Refills, 06/24/22 11:25:00 EST, [facility] [place], [place] - [id number], 164, cm, 06/02/22 16:10:00 EST, Height, 122, kg, 05/02/22 15:20:00 EST, Dry Weight Start Date: 06/24/22 Status: Ordered Daliresp 500 mcg oral tablet 1 tablet, By Mouth, Daily, # 30 tablet, 6 Refills, [facility], 163, cm, 09/26/21 13:20:00 EDT,Height Start Date: 11/14/21 Status: Ordered docusate sodium 100 mg oral capsule 1 capsule, By Mouth, Daily, # 60 each, 5 Refills, Maintenance, 02/18/22 11:21:00 EDT, [facility], 163, cm, 12/29/21 9:41:00 EDT, [...] tablet, 1 Refills, Maintenance, 08/18/22 11:20:00 EDT, [facility], [facility] [phone], please dispense in separate bottle., 164, cm, 07/21/22 8:59... Start Date: 08/18/22 Status: Ordered Flonase 50 mcg/inh nasal spray 1 sprays, Nares, Both, Daily, # 16 Gm, 0 Refills, Maintenance, 04/13/22 12:06:00 EST, [place], [facility] [phone], Partial fill upon patient request if the prescription is for a schedule II opioid drug., 1 sprays Nares, Both... Start Date: 04/13/22 Stop Date: 05/13/22 Status: Ordered furosemide 40 mg oral tablet 1, tablet, By Mouth, 2 times a day, # 60 tablet, Refills 5, Maintenance, 03/20/22 11:36:00 EDT, Route to Pharmacy Electronically, [facility], 163, cm, 03/03/22 9:51:00 EDT, Height Start Date: 03/20/22 Status: Ordered guaiFENesin 100 mg/5 mL oral liquid 20 mL = 400 mg, By Mouth, 2 times a day, for congestion, cough. with fluids, # 240 mL, 0 Refills, Maintenance, 04/14/21 8:42:00 EST, [facility] [id number], Partial fill upon patient request if the [...] 08/18/22 11:21:00 EDT, Route to Pharmacy Electronically, [facility] [place], [place] - [id number], 1... Start Date: 08/18/22 Status: Ordered ibuprofen 800 mg oral tablet 1, tablet, By Mouth, Every 8 hours, PRN, TAKE WITH FOOD OR MILK, # 60 tablet, Refills 0, Maintenance, NEEDED FOR SEVERE PAIN, 02/18/22 11:21:00 EDT, Route to Pharmacy Electronically, [facility], 163, cm, 12/29/21 9:41:00 EDT, [...] 07/23/22 10:02:00 EST, Route to Pharmacy Electronically, [facility], 164, cm, 07/21/22 8:59:00 EST, Height, 122, kg, 05/02/22 15:20:00 EST, Dry Weight Start Date: 07/23/22 Status: Ordered magnesium gluconate 250 mg oral tablet 1 tablet = 250 mg, By Mouth, 2 times a day, # 60 tablet, 2 Refills, Maintenance, 09/22/22 17:27:00 EDT, [place], [place] - [id number], Partial fill upon patient request if the prescription is for a schedule II opioid drug., 1 tablet B... Start Date: 09/22/22 Status: Ordered Narcan 4 mg/0.1 mL nasal spray = 4 mg, Inhalation, Once, # 2 each, 0 Refills, Soft Stop, 06/02/18 15:53:05 EST Start Date: 06/02/18 Status: Ordered Nicotrol Inhaler 10 mg inhalation device See Instructions, To use with nicotine cartridges in place of cigarettes, # 3 each, 0 Refills, Maintenance, 08/31/22 9:43:00 EDT, [place], [place] - [id number], Partial fill upon patient request if the [...] EDT, Supply Start Date: 02/27/21 Status: Ordered Ozempic 2 mg/1.5 mL (0.25 mg or 0.5 mg dose) subcutaneous solution = 0.25 mg, Subcutaneous Infusion, Every week, # 4 each, 5 Refills, Maintenance, 09/16/22 8:19:00 EDT, [place], [place] - [id number], please stop victoza, 0.25 mg Subcutaneous Infusion Every week, 163, cm, 09/16/22 7:13:00 EDT, Height,... Start Date: 09/16/22 Status: Ordered portable oxygen concentrator portable oxygen concentrator, See Instructions, # 1 each, Refills 0, Tot. Refills 0, Maintenance, Dx severe COPD. Codes J44.9, R09.02, 01/31/20 16:26:00 EDT, Compound Start Date: 01/31/20 Status: Ordered Potassium Chloride (Vya-Pbcc-Icx M20) 20 mEq oral tablet, extended release 1 tablet, By Mouth, Daily, # 30 tablet, 6 Refills, Maintenance, 05/25/22 17:29:00 EST, [facility], 164, cm, 05/02/22 15:20:00 EST, Height, [...] tablet, 5 Refills, Maintenance, 08/18/22 11:22:00 EDT, [place], [place] - [id number], please dispense in bubble pack. dose increase... Start Date: 08/18/22 Status: Ordered square orthopedic pillow with central square depression and surrounding bolster square orthopedic pillow with central square depression and surrounding bolster, See Instructions, # 1 each, Refills 0, Tot. Refills 0, Maintenance, Product number [id number] Dx codes: M54.2 Duration: lifetime, 07/21/22 14:25:00 EST, Supply Start Date: 07/21/22 Status: Ordered traZODone 150 mg oral tablet 3 tablet, By Mouth, Daily at bedtime, # 270 tablet, 6 Refills, [facility], 163, cm, 09/26/21 13:20:00 EDT, Height Start Date: 11/14/21 Status: Ordered Trelegy Ellipta 200 mcg-62.5 mcg-25 mcg/inh inhalation powder 1 puffs, Inhalation, Daily, at the same time every day, # 9 each, 3 Refills, Maintenance, 08/31/22 9:41:00 EDT, Powder, [place], [place] - [id number], Partial fill upon patient request if the prescription is for a schedule II opioid d... Start Date: 08/31/22 Status: Ordered value series power lift chair [id number] value series power lift chair [id number], See Instructions, # 1 each, Refills 0, Tot. Refills 0, Maintenance, Diagnosis codes: G89.29, M19.90, J44.9, Z74.09, 01/30/20 9:31:00 EDT, Supply Start Date: 01/30/20 Status: Ordered varenicline 1mg tablet 1 tablet, By Mouth, 2 times a day, # 56 tablet, 5 Refills, Physician Stop 06/24/23 11:28:00 EST, 06/24/22 11:30:00 EST, [facility] [id number], 164, cm, 06/02/22 16:10:00 EST,Height, 122, kg, 05/02/22 15:20:00 EST, Dry Weight Start Date: 06/24/22 Stop Date: 06/24/23 Status: Ordered Ventolin HFA 108 mcg/inh inhalation aerosol with adapter 2 puffs, Inhalation, 4 times a day, PRN Wheezing/Shortness of Breath, 90 days supply, # 1 each, 5 Refills, Maintenance, 04/14/22 16:26:00 EST, [facility] [id number], 163, cm,04/13/22 11:52:00 EST, Height Start Date: 04/14/22 Status: Ordered Victoza 18 mg/3 mL subcutaneous solution = 1.2 mg, Subcutaneous Infusion, Daily, # 15 mL, 11 Refills, Maintenance, 06/02/22 16:53:00 EST, [facility] [id number], Partial fill upon patient request if the [...] List Condition Confirmation Course Effective Dates Status [facility] at Informant Adjustment Disorder with Mixed Anxiety and [...] 4, 5 Confirmed Active BHN/CCA/CP-Jo Ann Harvey [phone]/Health correction active care coordination Confirmed Active Severe obesity [...] Care Team Personnel Name: Kwame Bolton Position: [facility] PCO Associate Professional Member Role: PCP Address: Address: [address] [place] [address] [place] [address]- Name: Perri Perry RN Position: [facility] RN Member Role: Primary Care Nurse Name: Alicia Vallecillo RN Position: [facility] RN Member Role: Primary Care Nurse Name: Maureen Smith RN Position: [facility] RN Member Role: Primary Care Nurse Name: Sultana Broussard RN Position: [facility] RN Member Role: Primary Care Nurse Name: Abigail Dior RN Position: [facility] RN Member Role: Primary Care Nurse Name: Ivette Carter RN Position: [facility] RN Member Role: Primary Care Nurse Name: Rukhsana Matthews RN Position: [facility] Hospital Cryogenic Transport Driver Member Role: Primary Care Nurse Care Team Related Persons Name: TANA MENDOZA Address: [place] [address] Name: MARIA TERESA UMAÑA Address: home [address] [place] [address] Name: ANG GAFFNEY Address: home [address] [place] [address] Name: CHILO AHMADI Address: home [address] [place] [address] [address] [place] [address]
--- OUTSIDE RECORDS SUMMARY | 2023-09-15 07:37 | XMS_ITS | Continuity of Care Document ---
Author Organization [facility] Address [address] [place] [address]- Care Team Providers Care Security Inspector Name Role Phone Kwame Bolton Primary Care Physician [phone] Encounter [facility] Date(s): 04/16/23 - 06/11/23 [facility] [address] [place] [address]- Attending Physician: Not on Staff, Attending MD [...] vaccine, inactivated 5 02/26/09 Gi cecile SARS-CoV-2(COVID-19)mRNA-LNP vac(nus021) 02/25/23 Recorded SARS-CoV-2 (COVID-19) mRNA-1273 vaccine 6 [...] 1Result Comment: [02/16/2023] Given at [facility] Averecord can be obtained from [facility] 2Result Comment: [02/22/2017] [facility] [id number] 3Admin Note: flulaval vis given vis date 11/16/2011 4Admin Note: VIS GIVEN VIS DATE 12/24/2009 5Admin Note: VIS GIVEN 12/25/08 spanish 6Result Comment: new booster 7Result Comment: dose 2 8Result Comment: dose 1 9Result Comment: Received at [facility] on [facility] in [place] 10Admin Note: vis given 11Admin Note: vis given 12Result Comment: [id number] exp 06/2009 13Admin Note: vis given Medications [...] EST, Compound Start Date: 07/12/19 Status: Ordered Sunset Saline 0.65% nasal gel 1 sprays, Nares, Both, 4 times a day, # 22.5 Gm, 1 Refills, Maintenance, 04/12/23 8:20:00 EST, [facility] [phone], Partial fill upon patient request if the prescription isfor a schedule II opioid drug., 1 sprays Nares, Bot... Start Date: 04/12/23 Status: Ordered Azithromycin 5 Day Dose Pack 250 mg oral tablet See Instructions, as directed on package labeling, # 6 each, 0 Refills, Maintenance, 01/05/23 14:03:00 EDT, [facility] [place] [facility] [id number], Partial fill upon patient request if the prescription is for a schedule II opioid drug., 163, c... Start Date: 01/05/23 Status: Ordered B-Complex with B-12 oral tablet See Instructions, TAKE 1 TABLET BY MOUTH ONCE DAILY WITH FOOD, # 90 tablet, 1 Refills, Maintenance,05/28/23 17:52:00 EST, [facility] [phone], 90, TAKE 1 TABLET BY MOUTH ONCE DAILY WITH FOOD, 163, cm, 05/06/23 8:47:00 EST,... Start Date: 05/28/23 Status: Ordered Biotene Moisturizing Mouth oral spray 1 sprays, By Mouth, 6 times a day, BIOTENE NAME BRAND MAY BE REQUIRED, # 240 mL, 5 Refills, Maintenance, 11/18/22 8:47:00 EDT, [facility] [phone], Partial fill upon patient request if the prescription is for a schedule II o... Start Date: 11/18/22 Status: Ordered Cane See Instructions, # 1 each, Maintenance, DX LEFT KNEE PAIN /ACL TEAR /ARTHRITIS DX CODE M25.562 HT 163 CM WT 123 KG DURATION -LIETIME PATIENTS VERA BOYKIN, 01/06/19 8:36:49 EDT, Compound Start Date: 01/06/19 Status: Ordered Comfort EZ Pen [place] 32 gauge x 5/32 Comfort EZ Pen [place] 32 gauge x 5/32 , See Instructions, # 50 Unknown, 11 Refills, USE DAILY WITHvictoza injection, 163, cm, 03/25/21 9:16:00 EST, Height Start Date: 04/01/21 Status: Ordered Comfort EZ Pen [place] 32 gauge x 5/32 Comfort EZ Pen [place] 32 gauge x 5/32 , See Instructions, # 50 Unknown, 0 Refills, USE DAILY WITH victoza injection, 163, cm, 12/18/20 9:01:00 EDT, Height Start Date: 02/05/21 Status: Ordered Comfort EZ Pen [place] 32 gauge x 5/32 Comfort EZ Pen [place] 32 gauge x 5/32 , See Instructions, [...] each, 5 Refills, Maintenance, 03/17/23 9:55:00 EDT, [place], [place] - [id number], Partial fill upon patient request if the prescription is for a schedule II... Start Date: 03/17/23 Status: Ordered docusate sodium 100 mg oral capsule 1 capsule, By Mouth, 2 times a day, # 60 each, 5 Refills, Maintenance, 05/14/23 10:27:00 EST, [facility], 163, cm, 05/06/23 8:47:00 EST, Height, 122, kg, 05/02/22 15:20:00 EST, Dry Weight Start Date: 05/14/23 Status: Ordered Ear Pain MD 4% otic liquid 2 drops, Ears, Both, 3 times a day, PRN Pain , Moderate, # 12.5 mL, 0 Refills, Maintenance, 01/04/23 21:24:00 EDT, [place], [place] - [id number], Partial fill upon patient request ifthe prescription [...] tablet, 5 Refills, Maintenance, 05/27/23 18:43:00 EST, [facility], 163, cm, 05/06/23 8:47:00 EST, Height, 122, kg, 05/02/22 15:20:00 EST, Dry Weight Start Date: 05/27/23 Status: Ordered fluticasone 50 mcg/inh nasal spray 1 sprays, Nares, Both, Daily, # 16 Gm, 2 Refills, Maintenance, 12/29/22 17:51:00 EDT, [place], [place] - [id number], Partial fill upon patient request if the prescription is for a schedule II opioid drug., 1 sprays Nares, Both Daily,... Start Date: 12/29/22 Status: Ordered furosemide 40 mg oral tablet 1, tablet, By Mouth, 2 times a day, # 60 tablet, Refills 5, Maintenance, 04/13/23 13:49:00 EST, Route to Pharmacy Electronically, [facility], 163, cm, 04/12/23 8:10:00 EST, [...] FOOD OR MILK, # 60 tablet, Refills 1, Maintenance, NEEDED FOR SEVERE PAIN, 04/15/23 14:20:00 EST, Route to Pharmacy Electronically, [facility], 163, cm, 04/12/23 8:10:00 EST, Height, 122, kg,... Start Date: 04/15/23 Status: Ordered INCONCTINENCE LINERS SUPER ABSORBANT INCONCTINENCE [...] 02/10/23 10:21:00 EDT, Route to Pharmacy Electronically, [facility], 163, cm, 01/20/23 8:13:00 EDT, Height, 122, kg, 05/02/22 15:20:00 EST, Dry Weight Start Date: 02/10/23 Status: Ordered Mag-G 500 mg oral tablet 0.5 tablet, By Mouth, 2 times a day, # 30 tablet, 2 Refills, Maintenance, 02/15/23 18:46:00 EDT, [facility], 163, cm, 01/20/23 8:13:00 EDT, Height, 122, kg, 05/02/22 15:20:00 EST, Dry Weight Start Date: 02/15/23 Status: Ordered Nicotrol Inhaler 10 mg inhalation device See Instructions, To use with nicotine cartridges in place of cigarettes, # 3 each, 0 Refills, Maintenance, 08/31/22 9:43:00 EDT, [place], [place] - [id number], Partial fill upon patient request if the [...] Start Date: 01/31/20 Status: Ordered Potassium Chloride (Jjb-Zhtb-Gdq M20) 20 mEq oral tablet, extended release [...] tablet, 6 Refills, Maintenance, 01/13/23 15:35:00 EDT, [facility], 163, cm, 12/22/22 8:54:00 EDT, Height, [...] tablet, 5 Refills, Maintenance, 02/23/23 13:56:00 EDT, [place], [place] - [id number], please dispense in bubble pack. dose increase... Start Date: 02/23/23 Status: Ordered square orthopedic pillow with central square depression and surrounding bolster square orthopedic pillow with central square depression and surrounding bolster, See Instructions, # 1 each, Refills 0, Tot. Refills 0, Maintenance, Product number [id number] Dx codes: M54.2 Duration: lifetime, 07/21/22 14:25:00 EST, Supply Start Date: 07/21/22 Status: Ordered traZODone 150 mg oral tablet 3 tablet, By Mouth, Daily at bedtime, # 270 tablet, 6 Refills, 10/26/22 10:18:00 EDT, [place], [place] - [id number], 163, cm, 10/14/22 8:43:00 EDT, Height, 122, kg, 05/02/22 15:20:00EST, Dry Weight Start Date: 10/26/22 Status: Ordered Trelegy Ellipta 200 mcg-62.5 mcg-25 mcg/inh inhalation powder 1 puffs, Inhalation, Daily, at the same time every day, # 9 each, 3 Refills, Maintenance, 08/31/22 9:41:00 EDT, Powder, [place], [place] - [id number], Partial fill upon patient request if the prescription is for a schedule II opioid d... Start Date: 08/31/22 Status: Ordered value series power lift chair [id number] value series power lift chair [id number], See Instructions, # 1 each, Refills 0, Tot. Refills 0, Maintenance, Diagnosis codes: G89.29, M19.90, J44.9, Z74.09, 01/30/20 9:31:00 EDT, Supply Start Date: 01/30/20 Status: Ordered Ventolin HFA 108 mcg/inh inhalation aerosol with adapter 2 puffs, Inhalation, 4 times a day, PRN NEEDED FOR SHORTNESS OF BREATH OR FOR WHEEZING, # 18 Gm,5 Refills, Maintenance, 04/13/23 13:49:00 EST, [facility], 163, cm, 04/12/23 8:10:00 EST, [...] 4, 5 Confirmed Active BHN/CCA/CP-Jo Ann Harvey [phone]/Health fci active care coordination Confirmed Active BHN/CCA/LCC Lisa Gutierrez [phone]/Health fci active care coordination Confirmed Active Severe obesity [...] Care Team Personnel Name: Kwame Bolton Position: [facility] PCO Associate Professional Member Role: PCP Address: Address: [address] [place] [address] [place] [address]- Name: Perri Perry RN Position: [facility] RN Member Role: Primary Care Nurse Name: Alicia Vallecillo RN Position: [facility] RN Member Role: Primary Care Nurse Name: Maureen Smith RN Position: [facility] RN Member Role: Primary Care Nurse Name: Sultana Broussard RN Position: [facility] RN Member Role: Primary Care Nurse Name: Abigail Dior RN Position: [facility] RN Member Role: Primary Care Nurse Name: Ivette Carter RN Position: [facility] RN Member Role: Primary Care Nurse Name: Rukhsana Matthews RN Position: [facility] Hospital Distribution Lead Member Role: Primary Care Nurse Care Team Related Persons Name: ELLIOTT MENDOZAT Address: [place] [address] Name: MARIA TERESA UMAÑA Address: home [address] [place] [address] Name: ANG GAFFNEY Address: home [address] [place] [address] Name: CHILO AHMADI Address: home [address] [address]
--- OUTSIDE RECORDS SUMMARY | 2023-09-15 07:37 | XMS_ITS | Continuity of Care Document ---
Author Organization [facility] ter Address [address] [place] [address]- Care Team Providers Care Supervisor [employer] Name Role Phone Kwame Bolton Primary Care Physician [phone] [facility]counter [facility] Date[facility]s): 01/28/23 - 03/24/[address] [address] Attending Physician: Kwame Bolton Admitting Physician: Kwame Bolton Referring Physician: Kwame Bolton Allergies, Adverse Reactions, Alerts [...] Gi cecile influenza virus vaccine, inactivated 5 10/13/09 Gi cecile SARS-CoV-2(COVID-19)mRNA-LNP vac([id number]) 02/25/23 Recorded SARS-CoV-2 (COVID-19) mRNA-1273 vaccine 6 [...] 1Result Comment: [02/16/2023] Given at [facility] Averecord can be obtained from [facility] 2Result Comment: [02/22/2017] [facility] [id number] 3Admin Note: flulaval vis given vis date 11/16/2011 4Admin Note: VIS GIVEN VIS DATE 12/24/2009 5Admin Note: VIS GIVEN 12/25/08 [place]er 6Result Comment: new booster 7Result Comment: dose 2 8Result Comment: dose 1 9Result Comment: Received at [facility] on [facility] in [place] 10Admin Note: vis given 11Admin Note: vis given 12Result Comment: [id number] exp 06/2009 13Admin Note: vis given Medications [...] EST, Compound Start Date: 07/12/19 Status: Ordered Azithromycin 5 Day Dose Pack 250 mg oral tablet See Instructions, as directed on package labeling, # 6 each, 0 Refills, Maintenance, 01/05/23 14:03:00 EDT, [place], [place] - [id number], Partial fill upon patient request if the prescription is for a schedule II opioid drug., 163, c... Start Date: 01/05/23 Status: Ordered B-Complex with B-12 oral tablet See Instructions, TAKE 1 TABLET BY MOUTH ONCE DAILY WITH FOOD, # 90 tablet, 1 Refills, Maintenance,11/18/22 10:57:00 EDT, [facility], 90, TAKE 1 TABLET BY MOUTH ONCE DAILY WITH FOOD, 163, cm, 11/18/22 8:31:00 EDT, Height, 122, kg, 05/02/22 15:20... Start Date: 11/18/22 Status: Ordered Biotene Moisturizing Mouth oral spray 1 sprays, By Mouth, 6 times a day, BIOTENE NAME BRAND MAY BE REQUIRED, # 240 mL, 5 Refills, Maintenance, 11/18/22 8:47:00 EDT, [place], [place] - [id number], Partial fill upon patient request if the prescription is for a schedule II o... Start Date: 11/18/22 Status: Ordered Cane See Instructions, # 1 each, Maintenance, DX LEFT KNEE PAIN /ACL TEAR /ARTHRITIS DX CODE M25.562 HT 163 CM WT 123 KG DURATION -LIETIME PATIENTS CANE BROKE, 01/06/19 8:36:49 EDT, Compound Start Date: 01/06/19 Status: Ordered Comfort EZ Pen Cadiz 32 gauge x 32 Comfort EZ Pen Cadiz 32 gauge x 5/32 , See Instructions, # 50 Unknown, 11 Refills, USE DAILY WITHvictoza injection, 163, cm, 03/25/21 9:16:00 EST, Height Start Date: 04/01/21 Status: Ordered Comfort EZ Pen Cadiz 32 gauge x 5/32 Comfort EZ Pen Cadiz 32 gauge x 5/32 , See Instructions, # 50 Unknown, 0 Refills, USE DAILY WITH victoza injection, 163, cm, 12/18/20 9:01:00 EDT, Height Start Date: 02/05/21 Status: Ordered Comfort EZ Pen Cadiz 32 gauge x 5/32 Comfort EZ Pen Cadiz 32 gauge x 5/32 , See Instructions, [...] each, 5 Refills, Maintenance, 03/17/23 9:55:00 EDT, [facility] [id number], Partial fill upon patient request if the prescription is for a schedule II... Start Date: 03/17/23 Status: Ordered docusate sodium 100 mg oral capsule 1 capsule, By Mouth, 2 times a day, dose frquency increase to twice per day 11/18/22, # 60 each, 5 Refills, Maintenance, 11/18/22 8:49:00 EDT, [facility] [id number], docusate dosing increase to bid 11/18/22., 163, cm, 11/18/22 8:3... Start Date: 11/18/22 Status: Ordered Ear Pain MD 4% otic liquid 2 drops, Ears, Both, 3 times a day, PRN Pain , Moderate, # 12.5 mL, 0 Refills, Maintenance, 01/04/23 21:24:00 EDT, [facility] [id number], Partial fill upon patient request ifthe prescription [...] day, # 15 tablet, 5 Refills, Maintenance, 11/18/22 10:57:00 EDT, [facility], 163, cm, 11/18/22 8:31:00 EDT, Height, 122, kg, 05/02/22 15:20:00 EST, Dry Weight Start Date: 11/18/22 Status: Ordered fluticasone 50 mcg/inh nasal spray 1 sprays, Nares, Both, Daily, # 16 Gm, 2 Refills, Maintenance, 12/29/22 17:51:00 EDT, [facility] [place], [place] - [id number], Partial fill upon patient request if the prescription is for a schedule II opioid drug., 1 sprays Nares, Both Daily,... Start Date: 12/29/22 Status: Ordered furosemide 40 mg oral tablet 1, tablet, By Mouth, 2 times a day, # 60 tablet, Refills 5, Maintenance, 10/21/22 11:08:00 EDT, Route to Pharmacy Electronically, [facility], 163, cm, 10/14/22 8:43:00 EDT, Height, 122, kg, 05/02/22 15:20:00 EST, Dry Weight Start Date: 10/21/22 Status: Ordered HOME BP MONITOR WITH WRIST [...] Refills 1, Maintenance, NEEDED FOR SEVERE PAIN, 02/15/23 10:38:00 EDT, Route to Pharmacy Electronically, [facility], 163, cm, 01/20/23 8:13:00 EDT, Height, 122, kg,... Start Date: 02/15/23 Status: Ordered INCONCTINENCE LINERS SUPER ABSORBANT INCONCTINENCE [...] 02/10/23 10:21:00 EDT, Route to Pharmacy Electronically, [facility], 163, cm, 01/20/23 8:13:00 EDT, Height, 122, kg, 05/02/22 15:20:00 EST, Dry Weight Start Date: 02/10/23 Status: Ordered Mag-G 500 mg oral tablet 0.5 tablet, By Mouth, 2 times a day, # 30 tablet, 2 Refills, Maintenance, 02/15/23 18:46:00 EDT, [facility], 163, cm, 01/20/23 8:13:00 EDT, Height, 122, kg, 05/02/22 15:20:00 EST, Dry Weight Start Date: 02/15/23 Status: Ordered Nicotrol Inhaler 10 mg inhalation device See Instructions, To use with nicotine cartridges in place of cigarettes, # 3 each, 0 Refills, Maintenance, 08/31/22 9:43:00 EDT, [facility] - [place], [place] - [id number], Partial fill upon patient request if the [...] Start Date: 02/28/21 Status: Ordered Ozempic 2 mg/1.5 mL (0.25 mg or 0.5 mg dose) subcutaneous solution = 0.5 mg, Subcutaneous Infusion, Every week, # 4 each, 5 Refills, Maintenance, 11/18/22 8:46:00 EDT, [place], [place] - [id number], dose increase to 0.5mg per week 11/18/22., 0.5 mg Subcutaneous Infusion Every week, 163, cm, 11/18/22 8:... Start Date: 11/18/22 Status: Ordered PLEASE D/C VITAMIN D3 1000 [...] Start Date: 01/31/20 Status: Ordered Potassium Chloride (Zcg-Kdko-Kif M20) 20 mEq oral tablet, extended release 1 tablet, By Mouth, Daily, # 30 tablet, 6 Refills, Maintenance, 01/13/23 15:35:00 EDT, [facility], 163, cm, 12/22/22 8:54:00 EDT, [...] tablet, 6 Refills, Maintenance, 01/13/23 15:35:00 EDT, [facility], 163, cm, 12/22/22 8:54:00 EDT, [...] tablet, 5 Refills, Maintenance, 02/23/23 13:56:00 EDT, [place], [place] - [id number], please dispense in bubble pack. dose increase... Start Date: 02/23/23 Status: Ordered square orthopedic pillow with central square depression and surrounding bolster square orthopedic pillow with central square depression and surrounding bolster, See Instructions, # 1 each, Refills 0, Tot. Refills 0, Maintenance, Product number [id number] Dx codes: M54.2 Duration: lifetime, 07/21/22 14:25:00 EST, Supply Start Date: 07/21/22 Status: Ordered traZODone 150 mg oral tablet 3 tablet, By Mouth, Daily at bedtime, # 270 tablet, 6 Refills, 10/26/22 10:18:00 EDT, [facility] [id number], 163, cm, 10/14/22 8:43:00 EDT, Height, 122, kg, 05/02/22 15:20:00EST, Dry Weight Start Date: 10/26/22 Status: Ordered Trelegy Ellipta 200 mcg-62.5 mcg-25 mcg/inh inhalation powder 1 puffs, Inhalation, Daily, at the same time every day, # 9 each, 3 Refills, Maintenance, 08/31/22 9:41:00 EDT, Powder, [place], [place] - [id number], Partial fill upon patient request if the prescription is for a schedule II opioid d... Start Date: 08/31/22 Status: Ordered value series power lift chair [id number] value series power lift chair [id number], See Instructions, # 1 each, Refills 0, Tot. Refills 0, Maintenance, Diagnosis codes: G89.29, M19.90, J44.9, Z74.09, 01/30/20 9:31:00 EDT, Supply Start Date: 01/30/20 Status: Ordered Ventolin HFA 108 mcg/inh inhalation aerosol with adapter 2 puffs, Inhalation, 4 times a day, PRN Wheezing/Shortness of Breath, 90 days supply, # 3 each, 1 Refills, Maintenance, 10/21/22 11:03:00 EDT, [facility] [id number], 163, cm,10/14/22 8:43:00 EDT, Height, 122, kg, 05/02/22 15:... Start Date: 10/21/22 Status: Ordered wrist blood pressure monitor wrist [...] 4, 5 Confirmed Active BHN/CCA/CP-Jo Ann Harvey [phone]/Health skilled nursing active care coordination Confirmed Active Severe obesity [...] Care Team Personnel Name: Kwame Bolton Position: [facility] PCO Associate Professional Member Role: PCP Address: Address: [address] [place] [address] [place] [address]- Name: Perri Perry RN Position: [facility] RN Member Role: Primary Care Nurse Name: Alicia Vallecillo RN Position: [facility] RN Member Role: Primary Care Nurse Name: Maureen Smith RN Position: [facility] RN Member Role: Primary Care Nurse Name: Sultana Broussard RN Position: [facility] RN Member Role: Primary Care Nurse Name: Abigail Dior RN Position: [facility] RN Member Role: Primary Care Nurse Name: Ivette Carter RN Position: [facility] RN Member Role: Primary Care Nurse Name: Rukhsana Matthews RN Position: [facility] Hospital Radial Drill Press Set Up Operator Member Role: Primary Care Nurse Care Team Related Persons Name: TANA MENDOZA Address: [place] [address] Name: MARIA TERESA UMAÑA Address: home [address] [facility] [place] [address] Name: ANG GAFFNEY Address: home [address] [place] [address] Name: CHILO AHMADI Address: home [address] [place] [address]
--- OUTSIDE RECORDS SUMMARY | 2023-09-15 07:37 | XMS_ITS | Continuity of Care Document ---
Author Organization [facility] Address [address] [place] [address]- Care Team Providers Care Dress Cutter Name Role Phone Kwame Bolton Primary Care Physician [facility] 08[facility]23 - 09/01/23 [facility] [address] [place], [place] [phone] Allergies, Adverse Reactions, Alerts Substance Reaction Severity [...] vaccine, inactivated 5 02/26/09 Gi cecile SARS-CoV-2(COVID-19)mRNA-LNP vac([id number]) 02/25/23 Recorded SARS-CoV-2 (COVID-19) mRNA-1273 vaccine 6 [...] 1Result Comment: [02/16/2023] Given at [facility] Averecord can be obtained from [facility] 2Result Comment: [02/22/2017] [facility] [id number] 3Admin Note: flulaval vis given vis date 11/16/2011 4Admin Note: VIS GIVEN VIS DATE 12/24/2009 5Admin Note: VIS GIVEN 12/25/08 [place] 6Result Comment: new booster 7Result Comment: dose 2 8Result Comment: dose 1 9Result Comment: Received at [facility] on [facility] in [place] 10Admin Note: vis given 11Admin Note: vis given 12Result Comment: [id number] exp 06/2009 13Admin Note: vis given Medications [...] EST, Compound Start Date: 07/12/19 Status: Ordered Augusta Saline 0.65% nasal gel 1 sprays, Nares, Both, 4 times a day, # 22.5 Gm, 1 Refills, Maintenance, 08/20/23 15:42:00 EDT, [facility] [id number], Partial fill upon patient request if the prescription is for a schedule II opioid drug., 1 sprays Nares, Kilo... Start Date: 08/20/23 Status: Ordered B-Complex with B-12 oral tablet See Instructions, TAKE 1 TABLET BY MOUTH ONCE DAILY WITH FOOD, # 90 tablet, 1 Refills, Maintenance,05/28/23 17:52:00 EST, [facility] [id number], 90, TAKE 1 TABLET BY MOUTH ONCE DAILY WITH FOOD, 163, cm, 05/06/23 8:47:00 EST,... Start Date: 05/28/23 Status: Ordered Biotene Moisturizing Mouth oral spray 1 sprays, By Mouth, 6 times a day, BIOTENE NAME BRAND MAY BE REQUIRED, # 240 mL, 5 Refills, Maintenance, 11/18/22 8:47:00 EDT, [facility] [id number], Partial fill upon patient request if the prescription is for a schedule II o... Start Date: 11/18/22 Status: Ordered Cane See Instructions, # 1 each, Maintenance, DX LEFT KNEE PAIN /ACL TEAR /ARTHRITIS DX CODE M25.562 HT 163 CM WT 123 KG DURATION -LIETIME PATIENTS CANE ASHUTOSH, 01/06/19 8:36:49 EDT, Compound Start Date: 01/06/19 Status: Ordered Comfort EZ Pen Kennard 32 gauge x 5/32 Comfort EZ Pen Kennard 32 gauge x 5/32 , See Instructions, [...] each, 5 Refills, Maintenance, 03/17/23 9:55:00 EDT, [facility] [id number], Partial fill upon patient request if the prescription is for a schedule II... Start Date: 03/17/23 Status: Ordered docusate sodium 100 mg oral capsule 1 capsule, By Mouth, 2 times a day, # 60 each, 5 Refills, Maintenance, 05/14/23 10:27:00 EST, [facility], 163, cm, 05/06/23 8:47:00 EST, Height, 122, kg, 05/02/22 15:20:00 EST, Dry Weight Start Date: 05/14/23 Status: Ordered Ear Pain MD 4% otic liquid 2 drops, Ears, Both, 3 times a day, PRN Pain , Moderate, # 12.5 mL, 0 Refills, Maintenance, 01/04/23 21:24:00 EDT, [facility] [id number], Partial fill upon patient request ifthe prescription [...] tablet, 5 Refills, Maintenance, 05/27/23 18:43:00 EST, [facility], 163, cm, 05/06/23 8:47:00 EST, Height, 122, kg, 05/02/22 15:20:00 EST, Dry Weight Start Date: 05/27/23 Status: Ordered fluticasone 50 mcg/inh nasal spray 1 sprays, Nares, Both, Daily, # 16 Gm, 2 Refills, Maintenance, 07/13/23 18:31:00 EST, [place], [place] - [id number], Partial fill upon patient request if the prescription is for a schedule II opioid drug., 1 sprays Nares, Both Daily,... Start Date: 07/13/23 Status: Ordered furosemide 40 mg oral tablet 1, tablet, By Mouth, 2 times a day, # 60 tablet, Refills 5, Maintenance, 04/13/23 13:49:00 EST, Route to Pharmacy Electronically, [facility], 163, cm, 04/12/23 8:10:00 EST, [...] tablet, 2 Refills, Maintenance, 02/15/23 18:46:00 EDT, [facility], 163, cm, 01/20/23 8:13:00 EDT, Height, 122, kg, 05/02/22 15:20:00 EST, Dry Weight Start Date: 02/15/23 Status: Ordered MiraLax oral powder for reconstitution = 17 Gm, By Mouth, Daily, PRN Constipation, dissolve in 4 to 8 oz of beverage, # 24 each, 0 Refills, Maintenance, 08/25/23 18:22:00 EDT, [place], [place] - [id number], Partial fill upon patient request if the prescription is for a pino... Start Date: 08/25/23 Status: Ordered Nicotrol Inhaler 10 mg inhalation device See Instructions, To use with nicotine cartridges in place of cigarettes, # 3 each, 0 Refills, Maintenance, 08/31/22 9:43:00 EDT, [place], [place] - [id number], Partial fill upon patient request if the [...] mL, 5 Refills, Maintenance, 04/05/23 18:38:00 EST, [facility], 163, cm, 03/15/23 8:28:00 EDT, [...] Start Date: 01/31/20 Status: Ordered Potassium Chloride (Cpk-Azwu-Bfb M20) 20 mEq oral tablet, extended release 1 tablet, By Mouth, Daily, # 30 tablet, 2 Refills, Maintenance, 08/13/23 15:40:00 EDT, [place], [place] - [id number], 163, cm, 08/13/23 13:24:00 EDT, Height, 122, kg, 05/02/22 15:20:00 EST, Dry Weight Start Date: 08/13/23 Status: Ordered pulse dose evaluation pulse dose evaluation, See Instructions, # 1 each, Refills 0, Tot. Refills 0, Maintenance, Pulse Dose Evaluation dx: copd,chf 150.9, j44.9, 01/31/20 16:26:00 EDT, Supply Start Date: 01/31/20 Status: Ordered Readi-Cat 2 Smoothie Banana 2% oral suspension See Instructions, As directed general production worker to CT, # 900 mL, 0 Refills, Maintenance, 08/18/23 10:48:00 EDT, [facility], Partial fill upon patient request if the prescription is for a scheduleII opioid drug., As directed general production worker to CT, 163, cm... Start Date: 08/18/23 Status: Ordered Roflumilast 500 mcg oral tablet 1 tablet, By Mouth, Daily, # 30 tablet, 2 Refills, Maintenance, 08/13/23 15:40:00 EDT, [place], [place] - [id number], 163, cm, 08/13/23 13:24:00 EDT, Height, 122, [...] tablet, 5 Refills, Maintenance, 07/13/23 18:30:00 EST, [place], [place] - [id number], please dispense in bubble pack. dose increase... Start Date: 07/13/23 Status: Ordered square orthopedic pillow with central square depression and surrounding bolster square orthopedic pillow with central square depression and surrounding bolster, See Instructions, # 1 each, Refills 0, Tot. Refills 0, Maintenance, Product number [id number] Dx codes: M54.2 Duration: lifetime, 07/21/22 14:25:00 EST, Supply Start Date: 07/21/22 Status: Ordered traZODone 150 mg oral tablet 3 tablet, By Mouth, Daily at bedtime, # 270 tablet, 6 Refills, 10/26/22 10:18:00 EDT, [place], [place] - [id number], 163, cm, 10/14/22 8:43:00 EDT, Height, 122, kg, 05/02/22 15:20:00EST, Dry Weight Start Date: 10/26/22 Status: Ordered Trelegy Ellipta 200 mcg-62.5 mcg-25 mcg/inh inhalation powder 1 puffs, Inhalation, Daily, at the same time every day, # 9 each, 3 Refills, Maintenance, 08/31/22 9:41:00 EDT, Powder, [place], [place] - [id number], Partial fill upon patient request if the prescription is for a schedule II opioid d... Start Date: 08/31/22 Status: Ordered value series power lift chair [id number] value series power lift chair [id number], See Instructions, # 1 each, Refills 0, Tot. Refills 0, Maintenance, Diagnosis codes: G89.29, M19.90, J44.9, Z74.09, 01/30/20 9:31:00 EDT, Supply Start Date: 01/30/20 Status: Ordered Ventolin HFA 108 mcg/inh inhalation aerosol with adapter 2 puffs, Inhalation, 4 times a day, PRN NEEDED FOR SHORTNESS OF BREATH OR FOR WHEEZING, # 18 Gm,5 Refills, Maintenance, 04/13/23 13:49:00 EST, [facility], 163, cm, 04/12/23 8:10:00 EST, [...] 4, 5 Confirmed Active BHN/CCA/CP-Jo Ann Harvey [phone]/Health residential active care coordination Confirmed Active BHN/CCA/LCC Lisa Pyleillo [phone]/Health residential active care coordination Confirmed Active Severe obesity [...] Care Team Personnel Name: Kwame Bolton Position: [facility] PCO Associate Professional Member Role: PCP Address: Address: [address] [place] [address] [place] [address]- Name: Perri Perry RN Position: [facility] RN Member Role: Primary Care Nurse Name: Alicia Vallecillo RN Position: [facility] RN Member Role: Primary Care Nurse Name: Андрей Boo RN Position: [facility] Outreach Member Role: Primary Care Nurse Name: Maureen Smith RN Position: [facility] RN Member Role: Primary Care Nurse Name: Sultana Broussard RN Position: [facility] RN Member Role: Primary Care Nurse Name: Abigail Dior RN Position: [facility] RN Member Role: Primary Care Nurse Name: Ivette Carter RN Position: [facility] RN Member Role: Primary Care Nurse Name: Rukhsana Matthews RN Position: [facility] Upholsterer Apprentice Member Role: Primary Care Nurse Care Team Related Persons Name: TANA MENDOZA Address: [place] [address] Name: MARIA TERESA UMAÑA Address: home [address] [place] [address] Name: ANG GAFFNEY Address: home [address] [place] [address] Name: CHILO AHMADI Address: home [address] [address]
--- OUTSIDE RECORDS SUMMARY | 2023-09-15 07:38 | XMS_ITS | Continuity of Care Document ---
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 Role Phone Kwame Bolton Primary Care Physician [facility] 08[facility]19 - 08/16/19 [facility] [address] [place] [address]- [facility] Attending Physician: Kwame Bolton Allergies, Adverse Reactions, [...] (oldterm) 08/08/06 Given 1Result Comment: [02/22/2017] [facility] [id number] 2Admin Note: flulaval vis given vis date 11/16/2011 3Admin Note: VIS GIVEN VIS DATE 12/24/2009 4Admin Note: VIS GIVEN 12/25/08 mongolian 5Result Comment: [01/03/2018 Uncharted] ERROR NOT GIVEN 6Result Comment: [id number] exp 06/2009 7Admin Note: vis given 8Admin [...] 08/16/19 15:54:00 EDT, Route to Pharmacy Electronically, [place], [place] -, 163, cm, 07/11/19 13:24:00 ESTWin... [...] 5 Refills, Maintenance, 08/16/19 15:52:00 EDT, Powder, [place], [place] -, 1 puffs Inhalation Daily,Instr:[place] [...] Acute 02/12/20 15:52:00 EDT, 08/16/19 15:52:00 EDT, [place], [place] -, 163, cm, 07/11/19 13:24:00 EST,Height, 114, kg, 04/19/18 23:58:00 EST, Dry Weight Start Date: 08/16/19 Stop Date: 02/12/20 Status: Ordered clonazePAM 0.5 mg oral tablet 2 tablet = 1 mg, By Mouth, 2 times a day, dose increased to 2 tabs bid 05/2018, # 120 tablet, 2 Refills, Maintenance, 08/16/19 15:49:00 EDT, [place], [place] -, 163, cm, 07/11/19 13:24:00 EST, Height, 114, kg, 04/19/18 23:58:00 EST, D... Start Date: 08/16/19 Stop Date: 11/14/19 Status: Ordered Daliresp 500 mcg oral tablet See Instructions, 1 tablet By Mouth Daily, # 30 each, 6 Refills, Maintenance, 08/16/19 15:51:00 EDT, [place], [place] -, 163, cm, 07/11/19 13:24:00 EST, [...] Maintenance, 08/15/2014:51:00 EDT, Route to Pharmacy Electronically, [place], [place] -, 163, cm, 07/11/19 13:24:00 EST, [...] Gm, 5 Refills, Maintenance, 08/16/19 15:53:00 EDT, [place], [place] -, 1 sprays Nares, Both 2 times a day, 163, cm, 07/11/19 13:24:00 EST, Height, 114, kg, 04/19/18 23:58:00 EST, Dry Weight Start Date: 08/16/19 Status: Ordered furosemide 40 mg oral tablet 40 mg, 1, tablet, By Mouth, 2 times a day, # 60 tablet, Refills 5, Tot. Refills 5, Maintenance, 08/16/19 15:51:00 EDT, Route to Pharmacy Electronically, [place], [place] -, 163, cm, 07/11/19 13:24:00 EST, Height, 114, kg, 04/19/18 23:... Start Date: 08/16/19 Stop Date: 02/12/20 Status: Ordered Hospital Bed See Instructions, # 1 each, Maintenance, DX: COPD,ASTHMA,KIANA,CERVICAL DISC DISEASES, CHRONIC PAIN JJ44.9,G47.33 M50.9MG89.29 DURATION- LIFETIME, 03/29/19 16:31:32 EST, Compound Start Date: 03/29/19 Status: Ordered INCONCTINENCE LINERS SUPER ABSORBANT INCONCTINENCE [...] tablet, 5 Refills, Maintenance, 08/16/19 15:50:00 EDT, [place], [place] -, 163, cm, 07/11/19 13:24:00 EST, Height, 114, kg, 04/19/18 23:58:00EST, Dry Weight Start Date: 08/16/19 Status: Ordered tiZANidine 4 mg oral capsule 1 capsule = 4 mg, By Mouth, 3 times a day, use for severe muscle spasm, # 30 capsule, 3 Refills, Maintenance, 08/16/19 15:50:00 EDT, [facility], 163, cm, 07/11/19 13:24:00 EST, Height, 114, kg, 04/19/18 23:58:00 EST, Dry Weight Start Date: 08/16/19 Stop Date: 09/25/19 Status: Ordered traZODone 150 mg oral tablet 3 tablet = 450 mg, By Mouth, Daily at bedtime, Please d/c order for 300mg qhs. Correct dose 450mg qhs., # 90 tablet, 5 Refills, Maintenance, 08/16/19 15:52:00 EDT, [place], [place] -, 163, cm, 07/11/19 13:24:00 EST, Height, 114, kg, 1... Start Date: 08/16/19 Status: Ordered triamcinolone 0.025% topical cream 1 applicator, Topically, 3 times a day, PRN eczema, # 80 Gm, 2 Refills, Maintenance, 08/16/19 15:48:00 EDT, [place], [place] -, 1 applicator Topically 3 times a day,PRN:eczema, 163, cm, 07/11/19 13:24:00 EST, Height, 114, kg, 04/19/18... Start Date: 08/16/19 Status: Ordered Ventolin HFA 108 mcg/inh inhalation aerosol with adapter 2 puffs, Inhalation, 4 times a day, PRN Wheezing/Shortness of Breath, 90 days supply, # 1 each, 5 Refills, Maintenance, 08/16/19 15:53:00 EDT, [place], [place] -, 163, cm, 07/11/19 13:24:00 EST, Height, 114, kg, 04/19/18 23:58:00 EST,... Start Date: 08/16/19 Status: Ordered Vitamin D3 1000 intl units oral tablet 1 tablet = 1,000 International_Units, By Mouth, Daily, # 90 tablet, 3 Refills, Maintenance, 08/16/19 15:51:00 EDT, [place], [place] -, 163, cm, 07/11/19 13:24:00 EST, [...]
--- OUTSIDE RECORDS SUMMARY | 2023-09-15 07:38 | XMS_ITS | Continuity of Care Document ---
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 Role Phone Kwame Bolton Primary Care Physician [facility]): [facility]22 - 01/27/23 [facility] [address] [place] [id number] Attending Physician: Not on Staff, Attending MD Allergies, Adverse Reactions, Alerts Substance Reaction Severity Status Lobster throat tightening; vomiting Active Shrimp throat tightening; vomiting Active FIRST Metronidazole 1 vomiting, diarrhea, dyspnea Pers istent Moderate Active Other Environmental Allergy Seasonal Allergies Active [...] 3Result Comment: dose 1 4Result Comment: [02/22/2017] [facility] [id number] 5Admin Note: flulaval vis given vis date 11/16/2011 6Admin Note: VIS GIVEN VIS DATE 12/24/2009 7Admin Note: VIS GIVEN 12/25/08 bulgarian 8Result Comment: Received at [facility] on [facility] in [place] 9Admin Note: vis given 10Admin Note: vis given 11Result Comment: [id number] exp 06/2009 12Admin Note: vis given Medications [...] each, 0 Refills, Maintenance, 01/05/23 14:03:00 EDT, [place], [place] - [id number], Partial fill upon patient request if the prescription is for a schedule II opioid drug., 163, c... Start Date: 01/05/23 Status: Ordered B-Complex with B-12 oral tablet See Instructions, TAKE 1 TABLET BY MOUTH ONCE DAILY WITH FOOD, # 90 tablet, 1 Refills, Maintenance,11/18/22 10:57:00 EDT, [facility], 90, TAKE 1 TABLET BY MOUTH ONCE DAILY WITH FOOD, 163, cm, 11/18/22 8:31:00 EDT, Height, 122, kg, 05/02/22 15:20... Start Date: 11/18/22 Status: Ordered Biotene Moisturizing Mouth oral spray 1 sprays, By Mouth, 6 times a day, BIOTENE NAME BRAND MAY BE REQUIRED, # 240 mL, 5 Refills, Maintenance, 11/18/22 8:47:00 EDT, [place], [place] - [id number], Partial fill upon patient request if the prescription is for a schedule II o... Start Date: 11/18/22 Status: Ordered Cane See Instructions, # 1 each, Maintenance, DX LEFT KNEE PAIN /ACL TEAR /ARTHRITIS DX CODE M25.562 HT 163 CM WT 123 KG DURATION -LIETIME PATIENTS CANDarryl BOYKIN, 01/06/19 8:36:49 EDT, Compound Start Date: 01/06/19 Status: Ordered Comfort EZ Pen [place] 32 gauge x 5/32 Comfort EZ Pen [place] 32 gauge x 5/32 , See Instructions, # 50 Unknown, 11 Refills, USE DAILY WITHvictoza injection, 163, cm, 03/25/21 9:16:00 EST, Height Start Date: 04/01/21 Status: Ordered Comfort EZ Pen [place] 32 gauge x 5/32 Comfort EZ Pen [place] 32 gauge x 5/32 , See Instructions, # 50 Unknown, 0 Refills, USE DAILY WITH victoza injection, 163, cm, 12/18/20 9:01:00 EDT, Height Start Date: 02/05/21 Status: Ordered Comfort EZ Pen [place] 32 gauge x 5/32 Comfort EZ Pen [place] 32 gauge x 5/32 , See Instructions, # 50 Unknown, 11 Refills, Maintenance, USE DAILY WITH victoza injection, 06/04/22 11:52:00 EST, 164, cm, 06/02/22 16:10:00 EST, Height, 122,kg, 05/02/22 15:20:00 EST, Dry Weight Start Date: 06/04/22 Status: Ordered docusate sodium 100 mg oral capsule 1 capsule, By Mouth, 2 times a day, dose frquency increase to twice per day 11/18/22, # 60 each, 5 Refills, Maintenance, 11/18/22 8:49:00 EDT, [facility] [id number], docusate dosing increase to bid 11/18/22., 163, cm, 11/18/22 8:3... Start Date: 11/18/22 Status: Ordered Ear Pain MD 4% otic liquid 2 drops, Ears, Both, 3 times a day, PRN Pain , Moderate, # 12.5 mL, 0 Refills, Maintenance, 01/04/23 21:24:00 EDT, [facility] [id number], Partial fill upon patient request ifthe prescription [...] tablet, 5 Refills, Maintenance, 11/18/22 10:57:00 EDT, [facility], 163, cm, 11/18/22 8:31:00 EDT, Height, 122, kg, 05/02/22 15:20:00 EST, Dry Weight Start Date: 11/18/22 Status: Ordered fluticasone 50 mcg/inh nasal spray 1 sprays, Nares, Both, Daily, # 16 Gm, 2 Refills, Maintenance, 12/29/22 17:51:00 EDT, [facility] [id number], Partial fill upon patient request if the prescription is for a schedule II opioid drug., 1 sprays Nares, Both Daily,... Start Date: 12/29/22 Status: Ordered furosemide 40 mg oral tablet 1, tablet, By Mouth, 2 times a day, # 60 tablet, Refills 5, Maintenance, 10/21/22 11:08:00 EDT, Route to Pharmacy Electronically, [facility], 163, cm, 10/14/22 8:43:00 EDT, Height, [...] Refills 3, Maintenance, NEEDED FOR SEVERE PAIN, 11/18/22 8:47:00 EDT, Route to Pharmacy Electronically, [facility] [id number], 16... Start Date: 11/18/22 Status: Ordered INCONCTINENCE LINERS SUPER ABSORBANT INCONCTINENCE [...] 07/23/22 10:02:00 EST, Route to Pharmacy Electronically, [facility], 164, cm, 07/21/22 8:59:00 EST, Height, 122, kg, 05/02/22 15:20:00 EST, Dry Weight Start Date: 07/23/22 Status: Ordered magnesium gluconate 250 mg oral tablet 1 tablet = 250 mg, By Mouth, 2 times a day, # 60 tablet, 2 Refills, Maintenance, 11/18/22 16:58:00 EDT, [facility] - [place], [place] - [id number], Partial fill upon patient request if the prescription is for a schedule II opioid drug., 1 tablet B... Start Date: 11/18/22 Status: Ordered Nicotrol Inhaler 10 mg inhalation device See Instructions, To use with nicotine cartridges in place of cigarettes, # 3 each, 0 Refills, Maintenance, 08/31/22 9:43:00 EDT, [facility] [id number], Partial fill upon patient request if the [...] each, 5 Refills, Maintenance, 11/18/22 8:46:00 EDT, [facility] [id number], dose increase to 0.5mg per week 11/18/22., [...] Start Date: 01/31/20 Status: Ordered Potassium Chloride (Wis-Ycfe-Pda M20) 20 mEq oral tablet, extended release [...] tablet, 5 Refills, Maintenance, 08/18/22 11:22:00 EDT, [facility] [id number], please dispense in bubble pack. dose increase... Start Date: 08/18/22 Status: Ordered square orthopedic pillow with central square depression and surrounding bolster square orthopedic pillow with central square depression and surrounding bolster, See Instructions, # 1 each, Refills 0, Tot. Refills 0, Maintenance, Product number [id number] Dx codes: M54.2 Duration: lifetime, 07/21/22 14:25:00 EST, Supply Start Date: 07/21/22 Status: Ordered traZODone 150 mg oral tablet 3 tablet, By Mouth, Daily at bedtime, # 270 tablet, 6 Refills, 10/26/22 10:18:00 EDT, [facility] [id number], 163, cm, 10/14/22 8:43:00 EDT, Height, 122, kg, 05/02/22 15:20:00EST, Dry Weight Start Date: 10/26/22 Status: Ordered Trelegy Ellipta 200 mcg-62.5 mcg-25 mcg/inh inhalation powder 1 puffs, Inhalation, Daily, at the same time every day, # 9 each, 3 Refills, Maintenance, 08/31/22 9:41:00 EDT, Powder, [facility] [id number], Partial fill upon patient request if the prescription is for a schedule II opioid d... Start Date: 08/31/22 Status: Ordered value series power lift chair [id number] value series power lift chair [id number], See Instructions, # 1 each, Refills 0, Tot. Refills 0, Maintenance, Diagnosis codes: G89.29, M19.90, J44.9, Z74.09, 01/30/20 9:31:00 EDT, Supply Start Date: 01/30/20 Status: Ordered Ventolin HFA 108 mcg/inh inhalation aerosol with adapter 2 puffs, Inhalation, 4 times a day, PRN Wheezing/Shortness of Breath, 90 days supply, # 3 each, 1 Refills, Maintenance, 10/21/22 11:03:00 EDT, [facility] - [place], [place] - [id number], 163, cm,10/14/22 8:43:00 EDT, Height, 122, kg, [...] 4, 5 Confirmed Active BHN/CCA/CP-Jo Ann Harvey [phone]/Health usp active care coordination Confirmed Active Severe obesity [...] Care Team Personnel Name: Kwame Bolton Position: [facility] PCO Associate Professional Member Role: PCP Address: Address: [address] [facility] [place] [address]- [place] Name: Perri Perry RN Position: [facility] RN Member Role: Primary Care Nurse Name: Alicia Vallecillo RN Position: [facility] RN Member Role: Primary Care Nurse Name: Maureen Smith RN Position: [facility] RN Member Role: Primary Care Nurse Name: Sultana Broussard RN Position: [facility] RN Member Role: Primary Care Nurse Name: Abigail Dior RN Position: [facility] RN Member Role: Primary Care Nurse Name: Ivette Carter RN Position: [facility] RN Member Role: Primary Care Nurse Name: Rukhsana Matthews RN Position: [facility] Ferryboat Helper Member Role: Primary Care Nurse Care Team Related Persons Name: TANA MENDOZA Address: [place] [address] Name: MARIA TERESA UMAÑA Address: home [address] [place] [address] Name: ANG GAFFNEY Address: home [address] [place] [address] Name: CHILO AHMADI Address: home [address] [address]
--- OUTSIDE RECORDS SUMMARY | 2023-09-15 07:38 | XMS_ITS | Continuity of Care Document ---
Author Organization [facility] Address [address] [place] [address]- Care Team Providers Care Social Service Agency Director Name Role Phone Kwame Bolton Primary Care Physician [facility] - 07/04/21 [facility] [address] [place] [id number] Attending Physician: Not on Staff, Attending MD [...] Give n influenza virus vaccine, inactivated 7 12/4/12 Gi cecile influenza virus vaccine, inactivated 8 [...] Comment: dose 1 3Result Comment: Received at [facility] on [facility] in [place] 4Admin Note: vis given 5Admin Note: vis given 6Result Comment: [02/22/2017] [facility] [id number] 7Admin Note: flulaval vis given vis date 11/16/2011 8Admin Note: VIS GIVEN VIS DATE 12/24/2009 9Admin Note: VIS GIVEN 12/25/08 citizen [place] 10Result Comment: [01/03/2018 Uncharted] ERROR NOT GIVEN 11Result Comment: [id number] exp 06/2009 12Admin Note: vis given Medications [...] tablet, 2 Refills, Maintenance, 04/29/21 8:24:00 EST, [place], [place] - [id number], 163, cm, 04/29/21 8:04:00 EST, Height Start Date: 04/29/21 Status: Ordered Comfort EZ Pen [place] 32 gauge x 5/32 Comfort EZ Pen [facility] 32 gauge x 5/32 , See Instructions, # 50 Unknown, 11 Refills, USE DAILY WITHvictoza injection, 163, cm, 03/25/21 9:16:00 EST, Height Start Date: 04/01/21 Status: Ordered Comfort EZ Pen [facility] 32 gauge x 5/32 Comfort EZ Pen [facility] 32 gauge x 5/32 , See Instructions, # 50 Unknown, 0 Refills, USE DAILY WITH victoza injection, 163, cm, 12/18/20 9:01:00 EDT, Height Start Date: 02/05/21 Status: Ordered Daliresp 500 mcg oral tablet 1 tablet, By Mouth, Daily, # 30 tablet, 6 Refills, [facility], 163, cm, 04/29/21 8:04:00 EST, Height Start Date: 05/02/21 Status: Ordered docusate sodium 100 mg oral capsule 1 capsule, By Mouth, Daily, # 60 each, 5 Refills, Maintenance, 04/04/21 11:02:00 EST, [place], [place] - [id number], 163, cm, 03/25/21 9:16:00 EST, Height Start [...] tablet, Refills 6, Route to Pharmacy Electronically, [facility], 163, cm, 04/29/21 8:04:00 EST, Height Start Date: 05/02/21 Status: Ordered guaiFENesin 100 mg/5 mL oral liquid 20 mL = 400 mg, By Mouth, 2 times a day, for congestion, cough. with fluids, # 240 mL, 0 Refills, Maintenance, 04/14/21 8:42:00 EST, [place], [place] - [id number], Partial fill upon patient request if the [...] NEEDEDFOR SEVERE PAIN, Route to Pharmacy Electronically, [facility], 163, cm, 03/25/21 9:16:00 EST, [...] 02/26/21 9:41:00 EDT, Route to Pharmacy Electronically, [place], [place] - [id number], Partialfill upon patient request if the prescription [...] Start Date: 01/31/20 Status: Ordered Potassium Chloride (Buw-Trby-Kqv M20) 20 mEq oral tablet, extended release 1 tablet, By Mouth, Daily, # 30 tablet, 6 Refills, [facility], 163, cm, 04/29/21 8:04:00 EST, [...] Mouth, Daily, # 30 tablet, 2 Refills, [facility], 163, cm, 04/29/21 8:04:00 EST, Height Start Date: 05/28/21 Status: Ordered square orthopedic pillow with central square depression and surrounding bolster square orthopedic pillow with central square depression and surrounding bolster, See Instructions, # 1 each, Refills 0, Tot. Refills 0, Maintenance, Product number [id number] Dx codes: M54.2 Duration: lifetime, 02/27/21 19:03:00 EDT, Supply Start Date: 02/27/21 Status: Ordered traZODone 150 mg oral tablet 3 tablet, By Mouth, Daily at bedtime, # 270 tablet, 1 Refills, Maintenance, 05/28/21 10:31:00 EST, [place], [place] - [id number], 163, cm, 04/29/21 8:04:00 EST, Height Start Date: 05/28/21 Status: Ordered triamcinolone 0.025% topical cream 1 applicator, Topically, 3 times a day, PRN eczema, # 80 Gm, 2 Refills, Maintenance, 08/16/19 15:48:00 EDT, [place], [place] -, 1 applicator Topically 3 times a day,PRN:eczema, 163, cm, 07/11/19 13:24:00 EST, Height, 114, kg, 04/19/18... Start Date: 4/1/20 Status: Ordered value series power lift chair [id number] value series power lift chair [id number], See Instructions, # 1 each, Refills 0, Tot. Refills 0, Maintenance, Diagnosis codes: G89.29, M19.90, J44.9, Z74.09, 01/30/20 9:31:00 EDT, Supply Start Date: 01/30/20 Status: Ordered Ventolin HFA 108 mcg/inh inhalation aerosol with adapter 2 puffs, Inhalation, 4 times a day, PRN Wheezing/Shortness of Breath, 90 days supply, # 1 each, 5 Refills, Maintenance, 10/07/20 6:45:00 EDT, [facility] [id number], 163, cm, 09/24/20 13:25:00 EDT, Height Start Date: 10/07/20 Status: Ordered Victoza 18 mg/3 mL subcutaneous solution = 1.2 mg, Subcutaneous Infusion, Daily, dose increase to 1.2mg qd 04/29/21., # 15 mL, 5 Refills, Maintenance, 04/29/21 8:26:00 EST, [facility] [id number], Partial fill upon patient request if the prescription is for a schedule... Start Date: 04/29/21 Status: Ordered Vitamin B Complex oral tablet, extended release 1 tablet, By Mouth, Daily, with food., # 90 tablet, 3 Refills, Maintenance, 12/18/20 10:26:00 EDT, [facility] [id number], Partial fill upon patient request if the prescription is for a schedule II opioid drug., 1 tablet By Rosana... Start Date: 12/18/20 Stop Date: 12/13/21 Status: Ordered Vitamin D3 1000 intl units oral tablet 1 tablet = 1,000 International_Units, By Mouth, Daily, # 30 tablet, 5 Refills, Maintenance, 01/31/21 13:11:00 EDT, [facility] [id number], 163, cm, 12/18/20 9:01:00 EDT, Height Start [...] apnea(Confirmed) 4, 5 Active BHN/CCA/CP-Jo Ann Harvey [phone]/Health correction active care coordination(Confirmed) Active Severe obesity(Confirmed) Active [...]
--- OUTSIDE RECORDS SUMMARY | 2023-09-15 07:38 | XMS_ITS | Continuity of Care Document ---
Author Organization [facility] Address [address] [place] [address]- Care Team Providers Care Scaffolder Name Role Phone Kwame Bolton Primary Care Physician [phone] [facility]): [facility] - 02/22/21 [facility] [address] [place] [address] Allergies, Adverse Reactions, Alerts Substance [...] Comment: dose 1 3Result Comment: Received at [facility] on [facility] in [place] 4Admin Note: vis given 5Admin Note: vis given 6Result Comment: [02/22/2017] [facility] [id number] 7Admin Note: flulaval vis given vis date 11/16/2011 8Admin Note: VIS GIVEN VIS DATE 12/24/2009 9Admin Note: VIS GIVEN 12/25/08 [place] 10Result Comment: [01/03/2018 Uncharted] ERROR NOT GIVEN 11Result Comment: [id number] exp 06/2009 12Admin Note: vis given Medications [...] EST, Compound Start Date: 07/12/19 Status: Ordered Garner Saline 0.65% nasal solution See Instructions, use twice a day to rinse the nasal passages., # 120 mL, 1 Refills, Maintenance, 10/16/20 11:31:00 EDT, [facility] - [place], [place] - [id number], Partial fill upon patient request if the prescription is for a schedule II opioid... Start Date: 10/16/20 Status: Ordered Biotene Moisturizing Mouth oral spray 1 sprays, By Mouth, 6 times a day, please dispense 2 bottles per month., # 2 each, 5 Refills, Maintenance, 06/11/20 11:38:00 EST, [facility] [id number], 1 sprays By Mouth 6 times a day,Instr:please dispense 2 bottles per month... Start Date: 06/11/20 Status: Ordered Breo Ellipta 200 mcg-25 mcg/inh inhalation powder See Instructions, INHALE 1 PUFF BY MOUTH INTO THE lungs DAILY. rinse mouth and throat after use, # 60 Unknown, 11 Refills, 03/27/20 10:56:00 EST, [facility], [facility] [id number], 30, INHALE 1 PUFF BY MOUTH INTO [...] day, # 60 tablet, 2 Refills, Maintenance, 12/18/20 10:24:00 EDT, [facility] [id number], 163, cm, 12/18/20 9:01:00 EDT, Height Start Date: 12/18/20 Status: Ordered clonazePAM 0.5 mg oral tablet 2 tablet = 1 mg, By Mouth, 2 times a day, # 120 tablet, 2 Refills, Maintenance, 01/09/21 15:14:00 EDT, [facility] [id number], 163, cm, 12/18/20 9:01:00 EDT, Height Start Date: 01/09/21 Stop Date: 04/09/21 Status: Ordered Comfort EZ Pen [place] 32 gauge x 5/32 Comfort EZ Pen [place] 32 gauge x 5/32 , See Instructions, # 50 Unknown, 0 Refills, USE DAILY WITH victoza injection, 163, cm, 12/18/20 9:01:00 EDT, Height Start Date: 02/05/21 Status: Ordered Daliresp 500 mcg oral tablet 1 tablet, By Mouth, Daily, # 30 tablet, 6 Refills, Maintenance, 10/07/20 18:44:00 EDT, [facility], 163, cm, 09/24/20 13:25:00 EDT, Height Start [...] each, 5 Refills, Maintenance, 11/04/20 10:05:00 EDT, [facility] [id number], 163, cm, 10/16/20 10:59:00 EDT, Height Start [...] Gm, 2 Refills, Maintenance, 09/24/20 14:53:00 EDT, [facility] [id number], 1 sprays Nares, Both 2 times a day, 163, cm, 09/24/20 13:25:00 EDT, Height Start Date: 09/24/20 Status: Ordered furosemide 40 mg oral tablet 40 mg, 1, tablet, By Mouth, 2 times a day, # 60 tablet, Refills 2, Tot. Refills 2, Maintenance, 01/31/21 13:11:00 EDT, Route to Pharmacy Electronically, [facility] [id number], 163, cm, 12/18/20 9:01:00 EDT, Height Start Date: 01/31/21 Stop Date: 05/01/21 Status: Ordered HOME BP MONITOR WITH WRIST [...] OR MILK, # 60 tablet, Refills 1, NEEDED FOR SEVERE PAIN, Route to Pharmacy Electronically, [facility], 163, cm, 12/18/20 9:01:00 EDT, Height Start Date: 01/22/21 Status: Ordered INCONCTINENCE LINERS SUPER ABSORBANT INCONCTINENCE [...] EDT, Height Start Date: 12/18/20 Status: Ordered Locking Bathtub Grab Bar Locking [...] 09/24/20 14:52:00 EDT, Route to Pharmacy Electronically, [place], [place] - [id number], Partial fill upon patient request if the [...] Refills, Maintenance, 11/14/20 12:14:00 EDT, [facility], [place], [place] - [id number], Partial fill upon patient request if the [...] 11/04/20 12:42:00 EDT, Route to Pharmacy Electronically, [facility], 163, cm, 10/16/20 10:59:00 EDT, Height Start Date: 11/04/20 Status: Ordered portable oxygen concentrator portable oxygen concentrator, See Instructions, # 1 each, Refills 0, Tot. Refills 0, Maintenance, Dx severe COPD. Codes J44.9, R09.02, 01/31/20 16:26:00 EDT, Compound Start Date: 01/31/20 Status: Ordered Potassium Chloride (Drt-Zlce-Aln M20) 20 mEq oral tablet, extended release 1 tablet, By Mouth, Daily, # 30 tablet, 5 Refills, Maintenance, 11/04/20 12:42:00 EDT, [facility], 163, cm, 10/16/20 10:59:00 EDT, Height [...] each, 0 Refills, Maintenance, 08/29/20 19:11:00 EDT, [facility] [id number], Partial fill upon patient request if the prescription... Start Date: 08/29/20 Status: Ordered sertraline 50 mg oral tablet 1 tablet = 50 mg, By Mouth, Daily, please d/c 25mg tablet., # 30 tablet, 5 Refills, Maintenance, 09/24/20 14:52:00 EDT, [place], [place] - [id number], Partial fill upon patient request if the prescription is for a schedule II opioid d... Start Date: 09/24/20 Status: Ordered Shingrix intramuscular injection = 0.5 mL, Intramuscular, Once, repeat dose in 2 to 6 months, # 2 each, 0 Refills, Soft Stop, 01/17/20 11:40:00 EDT, Powder, [facility]/pharmacy #[id number], 0.5 mL Intramuscular Once,Instr:repeat dose in 2 to 6 months, 163, cm, 07/11/19 13:24:00 EST, Height, 114,... Start Date: 01/17/20 Status: Ordered traZODone 150 mg oral tablet 3 tablet, By Mouth, Daily at bedtime, # 90 tablet, 0 Refills, [facility], 163, cm, 12/18/20 9:01:00 EDT, Height Start Date: 02/05/21 Status: Ordered triamcinolone 0.025% topical cream 1 applicator, Topically, 3 times a day, PRN eczema, # 80 Gm, 2 Refills, Maintenance, 08/16/19 15:48:00 EDT, [place], [place] -, 1 applicator Topically 3 times a day,PRN:eczema, 163, cm, 07/11/19 13:24:00 EST, Height, 114, kg, 04/19/18... Start Date: 08/16/19 Status: Ordered value series power lift chair [id number] value series power lift chair [id number], See Instructions, # 1 each, Refills 0, Tot. Refills 0, Maintenance, Diagnosis codes: G89.29, M19.90, J44.9, Z74.09, 01/30/20 9:31:00 EDT, Supply Start Date: 01/30/20 Status: Ordered Ventolin HFA 108 mcg/inh inhalation aerosol with adapter 2 puffs, Inhalation, 4 times a day, PRN Wheezing/Shortness of Breath, 90 days supply, # 1 each, 5 Refills, Maintenance, 10/07/20 6:45:00 EDT, [place], [place] - [id number], 163, cm, 09/24/20 13:25:00 EDT, Height Start Date: 10/07/20 Status: Ordered Victoza 18 mg/3 mL subcutaneous solution = 0.6 mg, Subcutaneous Infusion, Daily, # 6 mL, 2 Refills, Maintenance, 12/18/20 10:55:00 EDT, [place], [place] - [id number], Partial fill upon patient request if the prescription isfor a schedule II opioid drug., 163, cm, 12/18/20 9... Start Date: 12/18/20 Status: Ordered Vitamin B Complex oral tablet, extended release 1 tablet, By Mouth, Daily, with food., # 90 tablet, 3 Refills, Maintenance, 12/18/20 10:26:00 EDT, [place], [place] - [id number], Partial fill upon patient request if the prescription is for a schedule II opioid drug., 1 tablet By Rosana... Start Date: 12/18/20 Stop Date: 12/13/21 Status: Ordered Vitamin D3 1000 intl units oral tablet 1 tablet = 1,000 International_Units, By Mouth, Daily, # 30 tablet, 5 Refills, Maintenance, 01/31/21 13:11:00 EDT, [place], [place] - [id number], 163, cm, 12/18/20 9:01:00 EDT, Height Start [...] apnea(Confirmed) 4, 5 Active BHN/CCA/CP-Jo Ann Harvey [phone]/Health long-term active care coordination(Confirmed) Active 1Health Care Agent: [...]
--- OUTSIDE RECORDS SUMMARY | 2023-09-15 07:38 | XMS_ITS | Continuity of Care Document ---
Author Organization [facility] Address [address] [place] [address]- Care Team Providers Care Showroom Salesperson Name Role Phone Kwame Bolton Primary Care Physician [facility]22 - 04/30/22 [facility] [address] [place] [id number] Attending Physician: Not on Staff, Attending MD [...] SARS-CoV-2 (COVID-19) mRNA-1273 vaccine 3 07/24/20 Recorded Influenza Virus Vaccine (oldterm) 02/23/20 Recorde d Influenza Virus Vaccine (oldterm) 4 02/23/20 Recor ded Influenza Virus Vaccine (oldterm) 5 03/14/08 Given Influenza Virus Vaccine (oldterm) 6 04/01/07 Given influenza virus vaccine, inactivated 02/01/19 Give n influenza virus vaccine, inactivated 03/09/18 Give n influenza virus vaccine, inactivated 7 02/22/17 Gi cecile influenza virus vaccine, inactivated 03/09/16 Give n influenza virus vaccine, inactivated 03/08/15 Give n influenza virus vaccine, inactivated 02/27/14 Give n influenza virus vaccine, inactivated 07/20/13 Give n influenza virus vaccine, inactivated 8 04/19/12 Gi cecile influenza virus vaccine, inactivated 9 03/11/10 Gi cecile influenza virus vaccine, inactivated 10 02/26/09 G iven tetanus-diphtheria toxoids (Td) 09/27/18 Given pneumococcal 23-valent vaccine 11 01/03/18 Given pneumococcal 13-valent vaccine 02/10/16 Given influ virus vac, H1N1, inactive(oldterm) 12 05/17/09 Given Tet/Diphth/Acel, Pertussis (oldterm) 13 05/30/08 G iven Pneumococcal Poly (PPV23) (oldterm) 08/08/06 Given Pneumococcal Vaccine (oldterm) 08/08/06 Given 1Result Comment: new booster 2Result Comment: dose 2 3Result Comment: dose 1 4Result Comment: Received at [facility] in [place] 5Admin Note: vis given 6Admin Note: vis given 7Result Comment: [02/22/2017] [facility] [id number] 8Admin Note: flulaval vis given vis date 11/16/2011 9Admin Note: VIS GIVEN VIS DATE 12/24/2009 10Admin Note: VIS GIVEN 12/25/08 tunisian 11Result Comment: [01/03/2018 Uncharted] ERROR NOT GIVEN 12Result Comment: [id number] exp 06/2009 13Admin Note: vis given Medications [...] WITH FOOD, # 90 tablet, 3 Refills, [facility], 90, TAKE ONE TABLET BY MOUTH DAILY WITH FOOD, 163, cm, 09/26/21 13:20:00 EDT, Height Start Date: 12/15/21 Status: Ordered Breo Ellipta 200 mcg-25 mcg/inh inhalation powder 1 puffs, Inhalation, Daily, rinse mouth and throat after use, # 60 Unknown, 5 Refills, Maintenance,02/18/22 11:21:00 EDT, [facility], 30, INHALE 1 PUFF BY MOUTH INTO THE lungs DAILY. rinse mouth and throat after use, 163, cm, 12/29/21 9:41:00 ED... Start Date: 02/18/22 Status: Ordered busPIRone 10 mg oral tablet 10 mg, 1, tablet, By Mouth, 3 times a day, for anxiety, # 90 tablet, Refills 0, Tot. Refills 0, Maintenance, 03/03/22 14:49:00 EDT, Route to Pharmacy Electronically, [place], [place]- [id number], Partial fill upon patient request if... Start [...] mL, 1 Refills, Maintenance, 03/03/22 14:52:00 EDT, [place], [place] - [id number], Partial fill uponpatient request if the prescription is for a schedu... Start Date: 03/03/22 Status: Ordered Comfort EZ [place] 32 gauge x 5/32 Comfort EZ [place] 32 gauge x 5/32 , See Instructions, # 50 Unknown, 11 Refills, USE DAILY WITHvictoza injection, 163, cm, 03/25/21 9:16:00 EST, Height Start Date: 04/01/21 Status: Ordered Comfort EZ [place] 32 gauge x 5/32 Comfort EZ [place] 32 gauge x 5/32 , See Instructions, # 50 Unknown, 0 Refills, USE DAILY WITH victoza injection, 163, cm, 12/18/20 9:01:00 EDT, Height Start Date: 02/05/21 Status: Ordered D3 1000 intl units (25 mcg) oral tablet 1 tablet, By Mouth, Daily, # 30 tablet, 5 Refills, [facility], 163, cm, 09/26/21 13:20:00 EDT,Height Start Date: 12/22/21 Status: Ordered Daliresp 500 mcg oral tablet 1 tablet, By Mouth, Daily, # 30 tablet, 6 Refills, [facility], 163, cm, 09/26/21 13:20:00 EDT,Height Start Date: 11/14/21 Status: Ordered docusate sodium 100 mg oral capsule 1 capsule, By Mouth, Daily, # 60 each, 5 Refills, Maintenance, 02/18/22 11:21:00 EDT, [facility], 163, cm, 12/29/21 9:41:00 EDT, [...] Gm, 0 Refills, Maintenance, 04/13/22 12:06:00 EST, [place], [place], [place] - [phone], Partial fill upon patient request if the prescription is for a schedule II opioid drug., 1 sprays Nares, Both... Start Date: 04/13/22 Stop Date: 05/13/22 Status: Ordered furosemide 40 mg oral tablet 1, tablet, By Mouth, 2 times a day, # 60 tablet, Refills 5, Maintenance, 03/20/22 11:36:00 EDT, Route to Pharmacy Electronically, [facility], 163, cm, 03/03/22 9:51:00 EDT, Height Start Date: 03/20/22 Status: Ordered guaiFENesin 100 mg/5 mL oral liquid 20 mL = 400 mg, By Mouth, 2 times a day, for congestion, cough. with fluids, # 240 mL, 0 Refills, Maintenance, 04/14/21 8:42:00 EST, [facility] - [place], [place] - [id number], Partial fill upon patient request if the [...] 02/18/22 11:21:00 EDT, Route to Pharmacy Electronically, [facility], 163, cm, 12/29/21 9:41:00 EDT, [...] By Mouth, Daily, # 30 tablet, Refills 2, Maintenance, 04/24/22 20:55:00 EST, Route to Pharmacy Electronically, [facility], 163, cm, 04/13/22 11:52:00 EST, Height Start Date: 04/24/22 Status: Ordered magnesium gluconate 250 mg oral tablet 1 tablet = 250 mg, By Mouth, 2 times a day, # 60 tablet, 2 Refills, Maintenance, 04/27/22 11:27:00 EST, [place], [place] - [id number], Partial fill upon patient request if the [...] Start Date: 01/31/20 Status: Ordered Potassium Chloride (Uhm-Pgpc-Nkd M20) 20 mEq oral tablet, extended release [...] Mouth, Daily, # 30 tablet, 3 Refills, Maintenance, 03/20/22 17:49:00 EDT, [facility], 163, cm, 03/03/22 9:51:00 EDT, Height Start Date: 03/20/22 Status: Ordered square orthopedic pillow with central square depression and surrounding bolster square orthopedic pillow with central square depression and surrounding bolster, See Instructions, # 1 each, Refills 0, Tot. Refills 0, Maintenance, Product number [id number] Dx codes: M54.2 Duration: lifetime, 02/27/21 19:03:00 EDT, Supply Start Date: 02/27/21 Status: Ordered traZODone 150 mg oral tablet 3 tablet, By Mouth, Daily at bedtime, # 270 tablet, 6 Refills, [facility], 163, cm, 09/26/21 13:20:00 EDT, Height Start Date: 11/14/21 Status: Ordered value series power lift chair [id number] value series power lift chair [id number], See Instructions, # 1 each, Refills 0, Tot. Refills 0, Maintenance, Diagnosis codes: G89.29, M19.90, J44.9, Z74.09, 01/30/20 9:31:00 EDT, Supply Start Date: 01/30/20 Status: Ordered varenicline 1mg tablet 1 tablet, By Mouth, 2 times a day, # 56 tablet, 5 Refills, [facility], 163, cm, 09/26/21 13:20:00 EDT, Height Start Date: 12/22/21 Status: Ordered Ventolin HFA 108 mcg/inh inhalation aerosol with adapter 2 puffs, Inhalation, 4 times a day, PRN Wheezing/Shortness of Breath, 90 days supply, # 1 each, 5 Refills, Maintenance, 04/14/22 16:26:00 EST, [facility] [id number], 163, cm,04/13/22 11:52:00 EST, Height Start Date: 04/14/22 Status: Ordered Victoza 18 mg/3 mL subcutaneous solution = 1.2 mg, Subcutaneous Infusion, Daily, dose increase to 1.2mg qd 04/29/21., # 15 mL, 5 Refills, Maintenance, 04/29/21 8:26:00 EST, [facility] [id number], Partial fill upon patient request if the [...] 4, 5 Confirmed Active BHN/CCA/CP-Jo Ann Harvey [phone]/Health jail active care coordination Confirmed Active Severe obesity [...] Care Team Personnel Name: Kwame Bolton Position: [facility] PCO Associate Professional Member Role: PCP Address: Address: [address] [place] [address] [place] [address]- Name: Perri Perry RN Position: [facility] RN Member Role: Primary Care Nurse Name: Alicia Vallecillo RN Position: [facility] RN Member Role: Primary Care Nurse Name: Maureen Smith RN Position: [facility] RN Member Role: Primary Care Nurse Name: Abigail Dior RN Position: [facility] RN Member Role: Primary Care Nurse Name: Ivette Carter RN Position: [facility] RN Member Role: Primary Care Nurse Name: Rukhsana Matthews RN Position: [facility] Music Box Mechanic Member Role: Primary Care Nurse Care Team Related Persons Name: TANA MENDOZA Address: [place] [address] Name: MARIA TERESA UMAÑA Address: home [address] [place] [address] Name: ANG GAFFNEY Address: home [address] [place] [address] Name: CHILO AHMADI Address: home [address] [address]
--- OUTSIDE RECORDS SUMMARY | 2023-09-15 07:38 | XMS_ITS | Continuity of Care Document ---
Author Organization [facility] Address [address] [facility], [address] d Floor, [address] [place] [address]- Care Team Providers Care Belt Maker Helper Name Role Phone Kwame Bolton Primary Care Physician [facility]): 07[facility]20 - 08/28/20 [facility] [address], [address], [address] [place] [id number] [[email or web address]] Attending Physician: Admlorie, Lucian8 Admitting Physician: Admtr, Ar8 Referring Physician: Admtr, Ar8 Allergies, Adverse Reactions, Alerts Substance Reaction Severity [...] Gi cecile influenza virus vaccine, inactivated 8 10/26/10 Gi cecile influenza virus vaccine, inactivated 9 [...] Comment: dose 1 3Result Comment: Received at [facility] on [facility] in [place] 4Admin Note: vis given 5Admin Note: vis given 6Result Comment: [02/22/2017] [facility] [id number] 7Admin Note: flulaval vis given vis date 11/16/2011 8Admin Note: VIS GIVEN VIS DATE 12/24/2009 9Admin Note: VIS GIVEN 12/25/08 palauan 10Result Comment: [01/03/2018 Uncharted] ERROR NOT GIVEN 11Result Comment: [id number] exp 06/2009 12Admin Note: vis given Medications [...] each, 5 Refills, Maintenance, 06/11/20 11:38:00 EST, [facility] - [place], [place] - [id number], 1 sprays By Mouth 6 times a day,Instr:please dispense 2 bottles per month... Start Date: 06/11/20 Status: Ordered Breo Ellipta 200 mcg-25 mcg/inh inhalation powder See Instructions, INHALE 1 PUFF BY MOUTH INTO THE lungs DAILY. rinse mouth and throat after use, # 60 Unknown, 11 Refills, 03/27/20 10:56:00 EST, [facility] [id number], 30, INHALE 1 PUFF BY MOUTH INTO [...] tablet, 0 Refills, Acute, 08/06/20 10:14:00 EDT, [facility], 163, cm, 07/31/20 13:11:00 EDT, Height Start Date: 08/06/20 Status: Ordered clonazePAM 0.5 mg oral tablet 2 tablet = 1 mg, By Mouth, 2 times a day, # 120 tablet, 2 Refills, Maintenance, 07/09/20 16:30:00 EST, [place], [place] - [id number], 163, cm, 07/08/20 9:27:00 EST, Height Start Date: 07/09/20 Stop Date: 10/07/20 Status: Ordered Daliresp 500 mcg oral tablet See Instructions, TAKE ONE TABLET BY MOUTH DAILY, # 30 tablet, 6 Refills, Maintenance, [facility], 163, cm, 03/05/20 13:58:00 EDT, Height, 114, [...] 12/15/19 10:10:00 EDT, Route to Pharmacy Electronically, [facility] [id number], 163, cm, 07/11/19 13:24:00 EST, Height, 114, kg... Start Date: 12/15/19 Status: Ordered docusate sodium 100 mg oral capsule See Instructions, TAKE ONE CAPSULE BY MOUTH 2 (two) times a day, # 60 capsule, 5 Refills, 03/27/20 10:56:00 EST, [facility] [id number], 163, cm, 03/05/20 13:58:00 EDT, Height, 114, [...] Gm, 5 Refills, Maintenance, 08/16/19 15:53:00 EDT, [place], [place] -, 1 sprays Nares, Both 2 times a day, 163, cm, 07/11/19 13:24:00 EST, Height, 114, kg, 04/19/18 23:58:00 EST, Dry Weight Start Date: 08/16/19 Status: Ordered furosemide 40 mg oral tablet 40 mg, 1, tablet, By Mouth, 2 times a day, # 60 tablet, Refills 5, Tot. Refills 5, Maintenance, 08/05/20 13:27:00 EDT, Route to Pharmacy Electronically, [facility] [id number], 163, cm, 07/31/20 13:11:00 EDT, Height Start [...] 05/13/20 8:59:00 EST, Route to Pharmacy Electronically, [facility], 163, cm, 03/05/20 13:58:00 EDT, [...] 01/18/20 15:46:00 EDT, Route to Pharmacy Electronically, [facility]/pharmacy #[id number], 163, cm, 07/11/19 13:24:00 [...] Refills, Maintenance, 07/08/20 10:14:00 EST, CR Capsule, [facility] [place], [place] - [phone], Partial fill upon patient request if the [...] 08/06/20 10:14:00 EDT, Route to Pharmacy Electronically, [facility], 163, cm, 07/31/20 13:11:00 EDT, Height Start [...] tablet, 5 Refills, Maintenance, 05/13/20 8:59:00 EST, [facility], 163, cm, 03/05/20 13:58:00 EDT, [...] Refills, Soft Stop, 01/17/20 11:40:00 EDT, Powder, [facility]/pharmacy #[id number], 0.5 mL Intramuscular Once,Instr:repeat dose in 2 to 6 months, 163, cm, 07/11/19 13:24:00 EST, Height, 114,... Start Date: 01/17/20 Status: Ordered traZODone 150 mg oral tablet 3 tablet = 450 mg, By Mouth, Daily at bedtime, Please d/c order for 300mg qhs. Correct dose 450mg qhs., # 90 tablet, 5 Refills, Maintenance, 03/27/20 10:57:00 EST, [place], [place] -[id number], 163, cm, 03/05/20 13:58:00 EDT, Height,... Start Date: 03/27/20 Status: Ordered triamcinolone 0.025% topical cream 1 applicator, Topically, 3 times a day, PRN eczema, # 80 Gm, 2 Refills, Maintenance, 08/16/19 15:48:00 EDT, [place], [place] -, 1 applicator Topically 3 times a day,PRN:eczema, 163, cm, 07/11/19 13:24:00 EST, Height, 114, kg, 04/19/18... Start Date: 08/16/19 Status: Ordered value series power lift chair [id number] value series power lift chair [id number], See Instructions, # 1 each, Refills 0, Tot. Refills 0, Maintenance, Diagnosis codes: G89.29, M19.90, J44.9, Z74.09, 01/30/20 9:31:00 EDT, Supply Start Date: 01/30/20 Status: Ordered Ventolin HFA 108 mcg/inh inhalation aerosol with adapter 2 puffs, Inhalation, 4 times a day, PRN Wheezing/Shortness of Breath, 90 days supply, # 1 each, 5 Refills, Maintenance, 04/15/20 17:48:00 EST, [facility] [id number], 163, cm,03/05/20 13:58:00 EDT, Height, 114, kg, 04/19/18 23... Start Date: 04/15/20 Status: Ordered verapamil 120 mg oral tablet 1 tablet, By Mouth, 3 times a day, home delivery please., # 90 tablet, 5 Refills, Maintenance, 05/21/20 11:21:00 EST, [facility] [id number], 163, cm, 03/05/20 13:58:00 EDT, Height Start Date: 05/21/20 Status: Ordered Vitamin D3 1000 intl units oral tablet 1 tablet = 1,000 International_Units, By Mouth, Daily, # 90 tablet, 1 Refills, Maintenance, 08/10/20 15:51:00 EDT, [facility] [id number], 163, cm, 07/31/20 13:11:00 EDT, Height Start [...] apnea(Confirmed) 4, 5 Active BHN/CCA/CP-Jo Ann Harvey [phone]/Health long term active care coordination(Confirmed) Active 1Health Care Agent: [...]
--- OUTSIDE RECORDS SUMMARY | 2023-09-15 07:38 | XMS_ITS | Continuity of Care Document ---
Author Organization [facility] Address [address] [place] [address]- Care Team Providers Care Compass Operator Name Role Phone Kwame Bolton Primary Care Physician [facility] - 04[facility]24/19 [facility] [address] [place] [address]- [facility] Discharge Disposition: A-D/C Home Attending Physician: Kwame Bolton Admitting Physician: Not on Staff, Admitting MD Referring Physician: Not on Staff, Referring MD Allergies, Adverse Reactions, Alerts Substance Reaction [...] Vaccine (oldterm) 08/08/06 Given 1Result Comment: [02/22/2017] [facility] [place] [id number] 2Admin Note: flulaval vis given vis date 11/16/2011 3Admin Note: VIS GIVEN VIS DATE 12/24/2009 4Admin Note: VIS GIVEN 12/25/08 italian 5Result Comment: [01/03/2018 Uncharted] ERROR NOT GIVEN 6Result Comment: [id number] exp 06/2009 7Admin Note: vis given 8Admin Note: vis given 9Admin Note: vis given Medications Biotene Moisturizing Mouth oral spray 1 sprays, [...] 05/2018, # 120 tablet, 2 Refills, Maintenance, 04/24/19 13:52:14 EST, 163, cm, 04/24/19 13:17:53 EST, Height, 114, kg, 04/19/18 23:58:35 EST, Dry Weight Start Date: 04/24/19 Stop Date: 07/23/19 Status: Ordered Daliresp 500 mcg oral tablet [...] 100 mg, 1, capsule, By Mouth, Daily, Refills 0, Maintenance, 12/20/18 9:49:12 EDT Start Date: 12/20/18 Status: Ordered Flonase 50 mcg/inh nasal spray 1 sprays, Nares, Both, 2 times a day, # 16 Gm, 5 Refills, Maintenance, 03/24/19 10:41:38 EST, 1 sprays Nares, Both 2 times a day Start Date: 03/24/19 Status: Ordered furosemide 20 mg oral tablet 20 mg, 1, tablet, By Mouth, 2 times a day, Take in addition to 40mg tab for total dose 60mg bid., #60 tablet, Refills 5, Tot. Refills 5, Maintenance, 03/24/19 10:42:38 EST, Route to Pharmacy Electronically, [facility]_[id number], [facility]... Start Date: 03/24/19 Status: Ordered Hospital Bed See Instructions, # 1 each, Maintenance, DX: COPD,ASTHMA,KIANA,CERVICAL DISC DISEASES, CHRONIC PAIN JJ44.9,G47.33 M50.9MG89.29 DURATION- LIFETIME, 03/29/19 16:31:32 EST, Compound Start Date: 03/29/19 Status: Ordered ibuprofen 800 mg oral tablet 800 mg, 1, tablet, By Mouth, Every 8 hours, PRN, with food or milk, # 90 tablet, Refills 2, Tot. Refills 2, Maintenance, Pain , Severe, 03/24/19 10:42:36 EST, Route to Pharmacy Electronically, [facility]DP_[id number], [facility] Start Date: 03/24/19 Status: Ordered INCONCTINENCE LINERS SUPER ABSORBANT INCONCTINENCE [...] 1 tablet = 20 mEq, By Mouth, 3 times a day, PLEASE DISPENSE SINDHU. THANK YOU!, # 15 tablet, 0 Refills, Maintenance, 03/27/19 17:17:36 EST Start Date: 03/27/19 Stop Date: 04/01/19 Status: Ordered potassium chloride 20 mEq oral tablet, extended release 1 tablet = 20 mEq, By Mouth, Daily, # 30 tablet, 0 Refills, Maintenance, 04/24/19 19:04:29 EST, 163, cm, 04/24/19 13:17:53 EST, Height, 114, kg, 04/19/18 23:58:35 EST, Dry Weight Start Date: 04/24/19 Status: Ordered tiZANidine 4 mg oral capsule 1 capsule = 4 mg, By Mouth, 3 times a day, use for severe muscle spasm, # 30 capsule, 3 Refills, Maintenance, 03/24/19 10:40:29 EST Start Date: 03/24/19 Stop Date: 05/03/19 Status: Ordered traZODone 150 mg oral tablet 3 tablet = 450 mg, By Mouth, Daily at bedtime, Please d/c order for 300mg qhs. Correct dose 450mg qhs., # 90 tablet, 5 Refills, Maintenance, 03/24/19 10:42:37 EST Start Date: 03/24/19 Status: Ordered Ventolin HFA 108 mcg/inh inhalation [...] to 83%. 42% of night below 90%. Vital Signs Most recent to oldest [Reference Range]: 1 Height 163 cm (04/24/19 1:17 PM) Weight 99.2 kg (04/24/19 1:17 PM) Oxygen Saturation [94-100 %] 94 % (04/24/19 1:17 PM) Pulse Rate [55-90 bpm] 87 bpm (04/24/19 1:17 PM) Body Mass Index [18.5-24.99] 37.34 *>HHI* (04/24/19 1:17 PM) Blood Pressure [90-138/55-84 mm Hg] 128/ 70mm Hg (04/24/19 1:17 PM) Blood pressure sites Arm, left (04/24/19 1:17 PM) Weight Obtained Via Standing scale (04/24/19 1:17 PM) Social History Social History Type Response Smoking Status Current every day [place]; Type: Cigarettes; Interested in cessation: No; Tobacco use times per day: 15 a day; Started at age: 9; entered on: 02/06/14 Sex Female
--- OUTSIDE RECORDS SUMMARY | 2023-09-15 07:38 | XMS_ITS | Continuity of Care Document ---
Author Organization [facility] Address [address] [facility], [address] Floor, [address] [place] [id number]- Care Team Providers Care Mesh Cutter Name Role Phone Kwame Bolton Primary Care Physician [phone] Encounter [facility] Date(s): 03/27/20 - 06/19/20 [facility] [address], [address], [address] [place] [id number] Attending Physician: Isaac Hu MD Admitting Physician: Isaac Hu MD Allergies, Adverse Reactions, Alerts Substance Reaction Severity Status Lobster throat tightening; vomiting Active FIRST Metronidazole 1 vomiting, diarrhea, dyspnea Pers istent Moderate Active Shrimp throat tightening; vomiting Active Other [...] (oldterm) 08/08/06 Given 1Result Comment: Received at [facility] on [facility] in [place] 2Admin Note: vis given 3Admin Note: vis given 4Result Comment: [02/22/2017] [facility] [id number] 5Admin Note: flulaval vis given vis date 11/16/2011 6Admin Note: VIS GIVEN VIS DATE 12/24/2009 7Admin Note: VIS GIVEN 12/25/08 persian 8Result Comment: [01/03/2018 Uncharted] ERROR NOT GIVEN 9Result Comment: [id number] exp 06/2009 10Admin Note: vis given Medications [...] capsule, 0 Refills, Maintenance, 03/05/20 14:41:00 EDT, [facility]/pharmacy #[id number], 1 capsule By Mouth Daily,x14 days, 163, cm, 03/05/20 13:58:00 EDT, Height, 114, kg, 04/19/18 23:58:00 EST, Dry Weight Start Date: 03/05/20 Stop Date: 03/19/20 Status: Ordered Biotene Moisturizing Mouth oral spray 1 sprays, By Mouth, 6 times a day, please dispense 2 bottles per month., # 2 each, 5 Refills, Maintenance, 06/11/20 11:38:00 EST, [facility] [id number], 1 sprays By Mouth 6 times a day,Instr:please dispense 2 bottles per month... Start Date: 06/11/20 Status: Ordered Breo Ellipta 200 mcg-25 mcg/inh inhalation powder 1 puffs, Inhalation, Daily, Rinse mouth well after each use, # 1 each, 5 Refills, Maintenance, 08/16/19 15:52:00 EDT, Powder, [place], [place] -, 1 puffs Inhalation Daily,Instr:[place] well after each use, 163, cm, 07/11/19 13:24:... Start Date: 08/16/19 Status: Ordered Breo Ellipta 200 mcg-25 mcg/inh inhalation powder See Instructions, INHALE 1 PUFF BY MOUTH INTO THE lungs DAILY. rinse mouth and throat after use, # 60 Unknown, 11 Refills, 03/27/20 10:56:00 EST, [facility] [id number], 30, INHALE 1 PUFF BY MOUTH INTO [...] tablet, 3 Refills, Maintenance, 03/27/20 10:55:00 EST, [facility] [id number], 163, cm, 03/05/20 13:58:00 EDT, Height, 114, kg, 04/19/18 23:58:00 EST, Dry Weight Start Date: 03/27/20 Status: Ordered clonazePAM 0.5 mg oral tablet 2 tablet = 1 mg, By Mouth, 2 times a day, # 120 tablet, 2 Refills, Maintenance, 03/27/20 10:57:00 EST, [place], [place] - [id number], 163, cm, 03/05/20 13:58:00 EDT, Height, 114, kg,04/19/18 23:58:00 EST, Dry Weight Start Date: 03/27/20 Stop Date: 06/25/20 Status: Ordered Daliresp 500 mcg oral tablet See Instructions, 1 tablet By Mouth Daily, # 30 each, 6 Refills, Maintenance, 08/16/19 15:51:00 EDT, [place], [place] -, 163, cm, 07/11/19 13:24:00 EST, Height, 114, kg, 04/19/18 23:58:00 EST, Dry Weight Start Date: 08/16/19 Status: Ordered Daliresp 500 mcg oral tablet See Instructions, TAKE ONE TABLET BY MOUTH DAILY, # 30 tablet, 6 Refills, Maintenance, [facility], 163, cm, 03/05/20 13:58:00 EDT, Height, [...] 12/15/19 10:10:00 EDT, Route to Pharmacy Electronically, [place], [place] - [id number], 163, cm, 07/11/19 13:24:00 EST, Height, 114, kg... Start Date: 12/15/19 Status: Ordered docusate sodium 100 mg oral capsule See Instructions, TAKE ONE CAPSULE BY MOUTH 2 (two) times a day, # 60 capsule, 5 Refills, 03/27/20 10:56:00 EST, [place], [place] - [id number], 163, cm, 03/05/20 13:58:00 EDT, Height, 114, [...] Gm, 5 Refills, Maintenance, 08/16/19 15:53:00 EDT, [place], [place] -, 1 sprays Nares, Both 2 times a day, 163, cm, 07/11/19 13:24:00 EST, Height, 114, kg, 04/19/18 23:58:00 EST, Dry Weight Start Date: 08/16/19 Status: Ordered furosemide 40 mg oral tablet 40 mg, 1, tablet, By Mouth, 2 times a day, # 60 tablet, Refills 3, Tot. Refills 3, Maintenance, 03/27/20 10:58:00 EST, Route to Pharmacy Electronically, [place], [place] - [id number], 163, cm, 03/05/20 13:58:00 EDT, Height, 114, kg, 1... Start Date: 03/27/20 Stop Date: 07/25/20 Status: Ordered guaiFENesin 100 mg/5 mL oral liquid 20 mL = 400 mg, By Mouth, Every 6 hours, PRN Cough and Congestion, with fluids, # 240 mL, 0 Refills, Maintenance, 09/28/19 14:14:00 EDT, [place], [place] -, 163, cm, 07/11/19 13:24:00 EST, [...] 13:58:00 EDT, Height, 114, kg, 04/19/18 23:58:00 ESTDr... Start Date: 03/19/20 Status: Ordered loratadine 10 mg oral tablet 10 mg, 1, tablet, By Mouth, Daily, # 30 tablet, Refills 3, Tot. Refills 3, Maintenance, 01/18/20 15:46:00 EDT, Route to Pharmacy Electronically, [facility]/pharmacy #[id number], 163, cm, 07/11/19 [...] 12/26/19 16:58:00 EDT, Route to Pharmacy Electronically, [facility] [place], [place] - [id number], 163, cm, 07/11/19 13:24:00 EST, Height, 114, kg,... Start Date: 12/26/19 Status: Ordered OXcarbazepine 150 mg oral tablet See Instructions, TAKE ONE TABLET BY MOUTH 2 (two) times a day, # 60 tablet, Refills 3, Tot. Refills 3, 03/27/20 10:55:00 EST, Instructions Replace Required Details, Route to Pharmacy Electronically,[place], [place] - [id number], 163... Start Date: 03/27/20 Status: Ordered portable oxygen concentrator portable oxygen concentrator, See Instructions, # 1 each, Refills 0, Tot. Refills 0, Maintenance, Dx severe COPD. Codes J44.9, R09.02, 01/31/20 16:26:00 EDT, Compound Start Date: 01/31/20 Status: Ordered potassium chloride 20 mEq oral tablet, extended release 1 tablet, By Mouth, Daily, # 30 tablet, 5 Refills, Maintenance, 05/13/20 8:59:00 EST, [facility], 163, cm, 03/05/20 13:58:00 EDT, Height Start Date: 05/13/20 Status: Ordered predniSONE 20 mg oral tablet 2 tablet = 40 mg, By Mouth, Daily in AM, with food or milk home delivery please, # 6 tablet, 0 Refills, Maintenance, 05/30/20 20:00:00 EST, [place], [place] - [id number], 163, cm, 03/05/20 13:58:00 EDT, Height Start [...] Refills, Soft Stop, 01/17/20 11:40:00 EDT, Powder, [facility]/pharmacy #[id number], 0.5 mL Intramuscular [...] 0 Refills, Maintenance, 03/19/20 17:18:00 EST, Tablet, [place], [place] -... Start Date: 03/19/20 Status: Ordered tinidazole 500 mg oral tablet 4 tablet = 2,000 mg, By Mouth, Daily, with food, # 8 tablet, 0 Refills, Soft Stop, 03/18/20 14:36:00 EST, [place], [place] - [id number], 163, cm, 03/05/20 13:58:00 EDT, Height, 114, kg, 04/19/18 23:58:00 EST, Dry Weight Start Date: 03/18/20 Stop Date: 03/20/20 Status: Ordered traZODone 150 mg oral tablet 3 tablet = 450 mg, By Mouth, Daily at bedtime, Please d/c order for 300mg qhs. Correct dose 450mg qhs., # 90 tablet, 5 Refills, Maintenance, 03/27/20 10:57:00 EST, [place], [place] -[id number], 163, cm, 03/05/20 13:58:00 EDT, Height,... Start Date: 03/27/20 Status: Ordered triamcinolone 0.025% topical cream 1 applicator, Topically, 3 times a day, PRN eczema, # 80 Gm, 2 Refills, Maintenance, 08/16/19 15:48:00 EDT, [place], [place] -, 1 applicator Topically 3 times a day,PRN:eczema, 163, cm, 07/11/19 13:24:00 EST, Height, 114, kg, 04/19/18... Start Date: 08/16/19 Status: Ordered value series power lift chair [id number] value series power lift chair [id number], See Instructions, # 1 each, Refills 0, Tot. Refills 0, Maintenance, Diagnosis codes: G89.29, M19.90, J44.9, Z74.09, 01/30/20 9:31:00 EDT, Supply Start Date: 01/30/20 Status: Ordered Ventolin HFA 108 mcg/inh inhalation aerosol with adapter 2 puffs, Inhalation, 4 times a day, PRN Wheezing/Shortness of Breath, 90 days supply, # 1 each, 5 Refills, Maintenance, 04/15/20 17:48:00 EST, [facility] [id number], 163, cm,03/05/20 13:58:00 EDT, Height, 114, kg, 04/19/18 23... Start Date: 04/15/20 Status: Ordered verapamil 120 mg oral tablet 1 tablet, By Mouth, 3 times a day, home delivery please., # 90 tablet, 5 Refills, Maintenance, 05/21/20 11:21:00 EST, [place], [place] - [id number], 163, cm, 03/05/20 13:58:00 EDT, Height Start Date: 05/21/20 Status: Ordered Vitamin D3 1000 intl units oral tablet 1 tablet = 1,000 International_Units, By Mouth, Daily, # 90 tablet, 3 Refills, Maintenance, 08/16/19 15:51:00 EDT, [place], [place] -, 163, cm, 07/11/19 13:24:00 EST, [...]
--- OUTSIDE RECORDS SUMMARY | 2023-09-15 07:38 | XMS_ITS | Continuity of Care Document ---
Author Organization [facility] Address [address] [place] [id number]- Care Team Providers Care Heat Curer Name Role Phone Kwame Bolton Primary Care Physician [place] [facility] [place] 04/20/20 - 08/18/20 [facility] [address] [place] [id number] Attending Physician: Grecia Lima MD Admitting Physician: Grecia Lima MD Referring Physician: Kwame Bolton Allergies, Adverse Reactions, [...] (oldterm) 08/08/06 Given 1Result Comment: Received at [facility] [place] 2Admin Note: vis given 3Admin Note: vis given 4Result Comment: [02/22/2017] [facility] [id number] 5Admin Note: flulaval vis given vis date 11/16/2011 6Admin Note: VIS GIVEN VIS DATE 12/24/2009 7Admin Note: VIS GIVEN 12/25/08 yi 8Result Comment: [01/03/2018 Uncharted] ERROR NOT GIVEN 9Result Comment: [id number] exp 06/2009 10Admin Note: vis given Medications [...] each, 5 Refills, Maintenance, 06/11/20 11:38:00 EST, [facility] [place], [place] - [id number], 1 sprays By Mouth 6 times a day,Instr:please dispense 2 bottles per month... Start Date: 06/11/20 Status: Ordered Breo Ellipta 200 mcg-25 mcg/inh inhalation powder See Instructions, INHALE 1 PUFF BY MOUTH INTO THE lungs DAILY. rinse mouth and throat after use, # 60 Unknown, 11 Refills, 03/27/20 10:56:00 EST, [facility] [id number], 30, INHALE 1 PUFF BY MOUTH INTO THE lungs DAILY. rinse mo... Start Date: 03/27/20 Status: Ordered Cane See Instructions, # 1 each, Maintenance, DX LEFT KNEE PAIN /ACL TEAR /ARTHRITIS DX CODE M25.562 HT 163 CM WT 123 KG DURATION -LIETIME PATIENTS CANE BROLUANNE, 01/06/19 8:36:49 EDT, Compound Start Date: 01/06/19 Status: Ordered chantix 1mg tablet 1 tablet, By Mouth, 2 times a day, # 56 tablet, 0 Refills, Acute, 08/06/20 10:14:00 EDT, [facility], 163, cm, 07/31/20 13:11:00 EDT, Height Start Date: 08/06/20 Status: Ordered clonazePAM 0.5 mg oral tablet 2 tablet = 1 mg, By Mouth, 2 times a day, # 120 tablet, 2 Refills, Maintenance, 07/09/20 16:30:00 EST, [place], [place] - [id number], 163, cm, 07/08/20 9:27:00 EST, Height Start Date: 07/09/20 Stop Date: 10/07/20 Status: Ordered Daliresp 500 mcg oral tablet See Instructions, TAKE ONE TABLET BY MOUTH DAILY, # 30 tablet, 6 Refills, Maintenance, [facility], 163, cm, 03/05/20 13:58:00 EDT, Height, [...] 12/15/19 10:10:00 EDT, Route to Pharmacy Electronically, [facility] [id number], 163, cm, 07/11/19 13:24:00 EST, Height, 114, kg... Start Date: 12/15/19 Status: Ordered docusate sodium 100 mg oral capsule See Instructions, TAKE ONE CAPSULE BY MOUTH 2 (two) times a day, # 60 capsule, 5 Refills, 03/27/20 10:56:00 EST, [facility] [id number], 163, cm, 03/05/20 13:58:00 EDT, Height, 114, [...] Gm, 5 Refills, Maintenance, 08/16/19 15:53:00 EDT, [place], [place] -, 1 sprays Nares, Both 2 times a day, 163, cm, 07/11/19 13:24:00 EST, Height, 114, kg, 04/19/18 23:58:00 EST, Dry Weight Start Date: 08/16/19 Status: Ordered furosemide 40 mg oral tablet 40 mg, 1, tablet, By Mouth, 2 times a day, # 60 tablet, Refills 5, Tot. Refills 5, Maintenance, 08/05/20 13:27:00 EDT, Route to Pharmacy Electronically, [facility] [id number], 163, cm, 07/31/20 13:11:00 EDT, Height Start [...] 05/13/20 8:59:00 EST, Route to Pharmacy Electronically, [facility], 163, cm, 03/05/20 13:58:00 EDT, Height [...] 15:46:00 EDT, [id number], 163, cm, 07/11/19 13:24:00 EST, Height, [...] Refills, Maintenance, 07/08/20 10:14:00 EST, CR Capsule, [facility] - [place], [place] - [id number], Partial fill upon patient request if the [...] 08/06/20 10:14:00 EDT, Route to Pharmacy Electronically, [facility], 163, cm, 07/31/20 13:11:00 EDT, Height Start [...] tablet, 5 Refills, Maintenance, 05/13/20 8:59:00 EST, [facility], 163, cm, 03/05/20 13:58:00 EDT, [...] Refills, Soft Stop, 01/17/20 11:40:00 EDT, Powder, [facility]/pharmacy #[id number], 0.5 mL Intramuscular Once,Instr:repeat dose in 2 to 6 months, 163, cm, 07/11/19 13:24:00 EST, Height, 114,... Start Date: 01/17/20 Status: Ordered traZODone 150 mg oral tablet 3 tablet = 450 mg, By Mouth, Daily at bedtime, Please d/c order for 300mg qhs. Correct dose 450mg qhs., # 90 tablet, 5 Refills, Maintenance, 03/27/20 10:57:00 EST, [place], [place] -[id number], 163, cm, 03/05/20 13:58:00 EDT, Height,... Start Date: 03/27/20 Status: Ordered triamcinolone 0.025% topical cream 1 applicator, Topically, 3 times a day, PRN eczema, # 80 Gm, 2 Refills, Maintenance, 08/16/19 15:48:00 EDT, [place], [place] -, 1 applicator Topically 3 times a day,PRN:eczema, 163, cm, 07/11/19 13:24:00 EST, Height, 114, kg, 04/19/18... Start Date: 08/16/19 Status: Ordered value series power lift chair [id number] value series power lift chair [id number], See Instructions, # 1 each, Refills 0, Tot. Refills 0, Maintenance, Diagnosis codes: G89.29, M19.90, J44.9, Z74.09, 01/30/20 9:31:00 EDT, Supply Start Date: 01/30/20 Status: Ordered Ventolin HFA 108 mcg/inh inhalation aerosol with adapter 2 puffs, Inhalation, 4 times a day, PRN Wheezing/Shortness of Breath, 90 days supply, # 1 each, 5 Refills, Maintenance, 04/15/20 17:48:00 EST, [facility] [id number], 163, cm,03/05/20 13:58:00 EDT, Height, 114, kg, 04/19/18 23... Start Date: 04/15/20 Status: Ordered verapamil 120 mg oral tablet 1 tablet, By Mouth, 3 times a day, home delivery please., # 90 tablet, 5 Refills, Maintenance, 05/21/20 11:21:00 EST, [facility] [id number], 163, cm, 03/05/20 13:58:00 EDT, Height Start Date: 05/21/20 Status: Ordered Vitamin D3 1000 intl units oral tablet 1 tablet = 1,000 International_Units, By Mouth, Daily, # 90 tablet, 1 Refills, Maintenance, 08/10/20 15:51:00 EDT, [facility] [id number], 163, cm, 07/31/20 13:11:00 EDT, Height Start [...] apnea(Confirmed) 4, 5 Active BHN/CCA/CP-[facility] Harvey [phone]/[facility] active care coordination(Confirmed) Active 1Health Care Agent: [...] Response Smoking Status Current every day sm roshan; Type: Cigarettes; Interested in cessation: No; Tobacco use times per day: 15 a day; Started at age: 9; entered on: 02/06/14 Sex Female
--- OUTSIDE RECORDS SUMMARY | 2023-09-15 07:38 | XMS_ITS | Continuity of Care Document ---
Author Organization [facility] ed[facility] Address [address] [place] [id number]- Care Team Providers Care Ecology Teacher Name Role Phone Kwame Bolton Primary Care Physician [place] [facility] [place]): [place]26/22 - 09/27/22 [facility] [address] [place] [id number] Attending Physician: Chilo Tracey II, MD Admitting Physician: Chilo Tracey II, MD Referring Physician: Kwame Bolton Allergies, Adverse [...] 3Result Comment: dose 1 4Result Comment: [02/22/2017] [facility] [place] [facility] [place] [id number] 5Admin Note: flulaval vis given vis date 11/16/2011 6Admin Note: VIS GIVEN VIS DATE 12/24/2009 7Admin Note: VIS GIVEN 12/25/08 korean 8Result Comment: Received at [facility] in [place] 9Admin Note: vis given 10Admin Note: vis given 11Result Comment: [01/03/2018 Uncharted] ERROR NOT GIVEN 12Result Comment: [id number] exp 06/2009 13Admin Note: vis given Medications [...] WITH FOOD, # 90 tablet, 3 Refills, [facility], 90, TAKE ONE TABLET BY MOUTH DAILY WITH FOOD, 163, cm, 09/26/21 13:20:00 EDT, Height Start Date: 12/15/21 Status: Ordered Biotene Moisturizing Mouth oral spray 1 sprays, By Mouth, 6 times a day, BIOTENE NAME BRAND MAY BE REQUIRED, # 240 mL, 1 Refills, Maintenance, 09/17/22 10:19:00 EDT, [facility] [id number], Partial fill upon patient request if the prescription is for a schedule II... Start Date: 09/17/22 Status: Ordered busPIRone 10 mg oral tablet 10 mg, 1, tablet, By Mouth, 3 times a day, for anxiety, # 90 tablet, Refills 0, Tot. Refills 0, Maintenance, 03/03/22 14:49:00 EDT, Route to Pharmacy Electronically, [facility] [id number], Partial fill upon patient request if... Start [...] mL, 1 Refills, Maintenance, 03/03/22 14:52:00 EDT, [facility] [id number], Partial fill uponpatient request if the prescription is for a schedu... Start Date: 03/03/22 Status: Ordered Comfort EZ Pen [place] 32 gauge x 5/32 Comfort EZ Pen [place] 32 gauge x 5/32 , See Instructions, # 50 Unknown, 11 Refills, USE DAILY WITHvictoza injection, 163, cm, 03/25/21 9:16:00 EST, Height Start Date: 04/01/21 Status: Ordered Comfort EZ Pen [place] 32 gauge x 5/32 Comfort EZ Pen [place] 32 gauge x 5/32 , See Instructions, # 50 Unknown, 0 Refills, USE DAILY WITH victoza injection, 163, cm, 12/18/20 9:01:00 EDT, Height Start Date: 02/05/21 Status: Ordered Comfort EZ Pen [place] 32 gauge x 5/32 Comfort EZ Pen [place] 32 gauge x 5/32 , See Instructions, # 50 Unknown, 11 Refills, Maintenance, USE DAILY WITH victoza injection, 06/04/22 11:52:00 EST, 164, cm, 06/02/22 16:10:00 EST, Height, 122,kg, 05/02/22 15:20:00 EST, Dry Weight Start Date: 06/04/22 Status: Ordered D3 1000 intl units (25 mcg) oral tablet 1 tablet, By Mouth, Daily, # 30 tablet, 5 Refills, 06/24/22 11:25:00 EST, [facility] [place], [place] - [id number], 164, cm, 06/02/22 16:10:00 EST, Height, 122, kg, 05/02/22 15:20:00 EST, Dry Weight Start Date: 06/24/22 Status: Ordered Daliresp 500 mcg oral tablet 1 tablet, By Mouth, Daily, # 30 tablet, 6 Refills, [facility], 163, cm, 09/26/21 13:20:00 EDT,Height Start Date: 11/14/21 Status: Ordered docusate sodium 100 mg oral capsule 1 capsule, By Mouth, Daily, # 60 each, 5 Refills, Maintenance, 02/18/22 11:21:00 EDT, [facility], 163, cm, 12/29/21 9:41:00 EDT, [...] tablet, 1 Refills, Maintenance, 08/18/22 11:20:00 EDT, [facility], [facility] [id number], please dispense in separate bottle., 164, cm, 07/21/22 8:59... Start Date: 08/18/22 Status: Ordered Flonase 50 mcg/inh nasal spray 1 sprays, Nares, Both, Daily, # 16 Gm, 0 Refills, Maintenance, 04/13/22 12:06:00 EST, [place], [facility] [id number], Partial fill upon patient request if the prescription is for a schedule II opioid drug., 1 sprays Nares, Both... Start Date: 04/13/22 Stop Date: 05/13/22 Status: Ordered furosemide 40 mg oral tablet 1, tablet, By Mouth, 2 times a day, # 60 tablet, Refills 5, Maintenance, 03/20/22 11:36:00 EDT, Route to Pharmacy Electronically, [facility], 163, cm, 03/03/22 9:51:00 EDT, Height Start Date: 03/20/22 Status: Ordered guaiFENesin 100 mg/5 mL oral liquid 20 mL = 400 mg, By Mouth, 2 times a day, for congestion, cough. with fluids, # 240 mL, 0 Refills, Maintenance, 04/14/21 8:42:00 EST, [facility] [id number], Partial fill upon patient request if the [...] LIFETIME, 03/29/19 16:31:32 EST, Compound Start Date: 11/13/19 Status: Ordered ibuprofen 800 mg oral tablet 1, tablet, By Mouth, Every 8 hours, PRN, TAKE WITH FOOD OR MILK, # 60 tablet, Refills 3, Tot. Refills 3, Maintenance, NEEDED FOR SEVERE PAIN, 08/18/22 11:21:00 EDT, Route to Pharmacy Electronically, [facility] - [place], [place] - [id number], 1... Start Date: 08/18/22 Status: Ordered ibuprofen 800 mg oral tablet 1, tablet, By Mouth, Every 8 hours, PRN, TAKE WITH FOOD OR MILK, # 60 tablet, Refills 0, Maintenance, NEEDED FOR SEVERE PAIN, 02/18/22 11:21:00 EDT, Route to Pharmacy Electronically, [facility], 163, cm, 12/29/21 9:41:00 EDT, [...] 07/23/22 10:02:00 EST, Route to Pharmacy Electronically, [facility], 164, cm, 07/21/22 8:59:00 EST, Height, 122, kg, 05/02/22 15:20:00 EST, Dry Weight Start Date: 07/23/22 Status: Ordered magnesium gluconate 250 mg oral tablet 1 tablet = 250 mg, By Mouth, 2 times a day, # 60 tablet, 2 Refills, Maintenance, 09/22/22 17:27:00 EDT, [facility] [id number], Partial fill upon patient request if the [...] each, 0 Refills, Maintenance, 08/31/22 9:43:00 EDT, [facility] [id number], Partial fill upon patient request if the [...] each, 5 Refills, Maintenance, 09/16/22 8:19:00 EDT, [place], [place] - [id number], please stop victoza, 0.25 mg Subcutaneous Infusion Every week, 163, cm, 09/16/22 7:13:00 EDT, Height,... Start Date: 09/16/22 Status: Ordered portable oxygen concentrator portable oxygen concentrator, See Instructions, # 1 each, Refills 0, Tot. Refills 0, Maintenance, Dx severe COPD. Codes J44.9, R09.02, 01/31/20 16:26:00 EDT, Compound Start Date: 01/31/20 Status: Ordered Potassium Chloride (Dxl-Aehn-Ttr M20) 20 mEq oral tablet, extended release 1 tablet, By Mouth, Daily, # 30 tablet, 6 Refills, Maintenance, 05/25/22 17:29:00 EST, [facility], 164, cm, 05/02/22 15:20:00 EST, [...] tablet, 5 Refills, Maintenance, 08/18/22 11:22:00 EDT, [facility] [id number], please dispense in bubble pack. dose increase... Start Date: 08/18/22 Status: Ordered square orthopedic pillow with central square depression and surrounding bolster square orthopedic pillow with central square depression and surrounding bolster, See Instructions, # 1 each, Refills 0, Tot. Refills 0, Maintenance, Product number [id number] Dx codes: M54.2 Duration: lifetime, 07/21/22 14:25:00 EST, Supply Start Date: 07/21/22 Status: Ordered traZODone 150 mg oral tablet 3 tablet, By Mouth, Daily at bedtime, # 270 tablet, 6 Refills, [facility], 163, cm, 09/26/21 13:20:00 EDT, Height Start Date: 11/14/21 Status: Ordered Trelegy Ellipta 200 mcg-62.5 mcg-25 mcg/inh inhalation powder 1 puffs, Inhalation, Daily, at the same time every day, # 9 each, 3 Refills, Maintenance, 08/31/22 9:41:00 EDT, Powder, [facility] [id number], Partial fill upon patient request if the prescription is for a schedule II opioid d... Start Date: 08/31/22 Status: Ordered value series power lift chair [id number] value series power lift chair [id number], See Instructions, # 1 each, Refills 0, Tot. Refills 0, Maintenance, Diagnosis codes: G89.29, M19.90, J44.9, Z74.09, 01/30/20 9:31:00 EDT, Supply Start Date: 01/30/20 Status: Ordered varenicline 1mg tablet 1 tablet, By Mouth, 2 times a day, # 56 tablet, 5 Refills, Physician Stop 06/24/23 11:28:00 EST, 06/24/22 11:30:00 EST, [facility] [id number], 164, cm, 06/02/22 16:10:00 EST,Height, 122, kg, 05/02/22 15:20:00 EST, Dry Weight Start Date: 06/24/22 Stop Date: 06/24/23 Status: Ordered Ventolin HFA 108 mcg/inh inhalation aerosol with adapter 2 puffs, Inhalation, 4 times a day, PRN Wheezing/Shortness of Breath, 90 days supply, # 1 each, 5 Refills, Maintenance, 04/14/22 16:26:00 EST, [facility] [id number], 163, cm,04/13/22 11:52:00 EST, Height Start Date: 04/14/22 Status: Ordered Victoza 18 mg/3 mL subcutaneous solution = 1.2 mg, Subcutaneous Infusion, Daily, # 15 mL, 11 Refills, Maintenance, 06/02/22 16:53:00 EST, [facility] [id number], Partial fill upon patient request if the [...] List Condition Confirmation Course Effective Dates Status [facility] Informant Adjustment Disorder with Mixed [...] 4, 5 Confirmed Active BHN/CCA/CP-Jo Ann Harvey [phone]/Health [facility] active care coordination Confirmed Active Severe [...] Care Team Personnel Name: Kwame Bolton Position: [facility] PCO Associate Professional Member Role: PCP Address: Address: [address] [place] [address] [place] [address]- Name: Perri Perry RN Position: [facility] RN Member Role: Primary Care Nurse Name: Alicia Vallecillo RN Position: [facility] RN Member Role: Primary Care Nurse Name: Maureen Smith RN Position: [facility] RN Member Role: Primary Care Nurse Name: Sultana Broussard RN Position: [facility] RN Member Role: Primary Care Nurse Name: Abigail Dior RN Position: [facility] RN Member Role: Primary Care Nurse Name: Ivette Carter RN Position: [facility] RN Member Role: Primary Care Nurse Name: Rukhsana Matthews RN Position: [facility] Hospital T Rail Turner Member Role: Primary Care Nurse Care Team Related Persons Name: TANA MENDOZA Address: [place] [address] Name: MARIA TERESA UMAÑA Address: home [address] [place] [address] Name: ANG GAFFNEY Address: home [address] [place] [address] Name: CHILO AHMADI Address: [address] [place] [address]
--- OUTSIDE RECORDS SUMMARY | 2023-09-15 07:38 | XMS_ITS | Continuity of Care Document ---
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 Name Role Phone Kwame Bolton Primary Care Physician [phone] Encounter [facility] Date(s): 03/27/20 - 05/24/20 [facility] [address] [place] [id number]- Attending Physician: Not on Staff, Attending MD Allergies, Adverse Reactions, Alerts Substance Reaction Severity Status Other Environmental Allergy Seasonal Allergies Active FIRST Metronidazole 1 vomiting, diarrhea, dyspnea Pers istent Moderate Active Lobster throat tightening; vomiting Active Shrimp throat tightening; vomiting Active 1VOMITING DIARRHEA,SEVERE DYPNEA Immunizations Given and [...] (oldterm) 08/08/06 Given 1Result Comment: Received at [facility] on [facility] in [place] 2Admin Note: vis given 3Admin Note: vis given 4Result Comment: [02/22/2017] [facility] [id number] 5Admin Note: flulaval vis given vis date 11/16/2011 6Admin Note: VIS GIVEN VIS DATE 12/24/2009 7Admin Note: VIS GIVEN 12/25/08 macedonian 8Result Comment: [01/03/2018 Uncharted] ERROR NOT GIVEN 9Result Comment: [id number] exp 06/2009 10Admin Note: vis given Medications [...] capsule, 0 Refills, Maintenance, 03/05/20 14:41:00 EDT, [facility]/pharmacy #[id number], 1 capsule By [...] 5 Refills, Maintenance, 08/16/19 15:52:00 EDT, Powder, [place], [place] -, 1 puffs Inhalation Daily,Instr:[place] after each use, 163, cm, 07/11/19 13:24:... Start Date: 08/16/19 Status: Ordered Breo Ellipta 200 mcg-25 mcg/inh inhalation powder See Instructions, INHALE 1 PUFF BY MOUTH INTO THE lungs DAILY. rinse mouth and throat after use, # 60 Unknown, 11 Refills, 03/27/20 10:56:00 EST, [place], [place] - [id number], 30, INHALE 1 PUFF BY MOUTH INTO THE lungs DAILY. rinse mo... Start Date: 03/27/20 Status: Ordered Cane See Instructions, # 1 each, Maintenance, DX LEFT KNEE PAIN /ACL TEAR /ARTHRITIS DX CODE M25.562 HT 163 CM WT 123 KG DURATION -LIETIME PATIENTS CANDarryl ISAIAHLUANNE, 01/06/19 8:36:49 EDT, Compound Start Date: 01/06/19 Status: Ordered chantix 1mg tablet See Instructions, TAKE ONE TABLET BY MOUTH 2 (two) times a day, # 56 tablet, 3 Refills, Maintenance, 03/27/20 10:55:00 EST, [facility] [id number], 163, cm, 03/05/20 13:58:00 EDT, Height, 114, kg, 04/19/18 23:58:00 EST, Dry Weight Start Date: 03/27/20 Status: Ordered clonazePAM 0.5 mg oral tablet 2 tablet = 1 mg, By Mouth, 2 times a day, # 120 tablet, 2 Refills, Maintenance, 03/27/20 10:57:00 EST, [facility] [id number], 163, cm, 03/05/20 13:58:00 EDT, Height, 114, kg,04/19/18 23:58:00 EST, Dry Weight Start Date: 03/27/20 Stop Date: 06/25/20 Status: Ordered Daliresp 500 mcg oral tablet See Instructions, 1 tablet By Mouth Daily, # 30 each, 6 Refills, Maintenance, 08/16/19 15:51:00 EDT, [place], [place] -, 163, cm, 07/11/19 13:24:00 EST, Height, 114, kg, 04/19/18 23:58:00 EST, Dry Weight Start Date: 08/16/19 Status: Ordered Daliresp 500 mcg oral tablet See Instructions, TAKE ONE TABLET BY MOUTH DAILY, # 30 tablet, 6 Refills, Maintenance, [facility], 163, cm, 03/05/20 13:58:00 EDT, Height, [...] 12/15/19 10:10:00 EDT, Route to Pharmacy Electronically, [place], [place] - [id number], 163, cm, 07/11/19 13:24:00 EST, Height, 114, kg... Start Date: 12/15/19 Status: Ordered docusate sodium 100 mg oral capsule See Instructions, TAKE ONE CAPSULE BY MOUTH 2 (two) times a day, # 60 capsule, 5 Refills, 03/27/20 10:56:00 EST, [place], [place] - [id number], 163, cm, 03/05/20 13:58:00 EDT, Height, 114, [...] Gm, 5 Refills, Maintenance, 08/16/19 15:53:00 EDT, [place], [place] -, 1 sprays Nares, Both 2 times a day, 163, cm, 07/11/19 13:24:00 EST, Height, 114, kg, 04/19/18 23:58:00 EST, Dry Weight Start Date: 08/16/19 Status: Ordered furosemide 40 mg oral tablet 40 mg, 1, tablet, By Mouth, 2 times a day, # 60 tablet, Refills 3, Tot. Refills 3, Maintenance, 03/27/20 10:58:00 EST, Route to Pharmacy Electronically, [place], [place] - [id number], 163, cm, 03/05/20 13:58:00 EDT, Height, 114, kg, 1... Start Date: 03/27/20 Stop Date: 07/25/20 Status: Ordered guaiFENesin 100 mg/5 mL oral liquid 20 mL = 400 mg, By Mouth, Every 6 hours, PRN Cough and Congestion, with fluids, # 240 mL, 0 Refills, Maintenance, 09/28/19 14:14:00 EDT, [place], [place] -, 163, cm, 07/11/19 13:24:00 EST, [...] 05/13/20 8:59:00 EST, Route to Pharmacy Electronically, [facility], 163, cm, 03/05/20 13:58:00 EDT, Height [...] InstructionsReplace Required Details, Route to Pharmacy Electronically, [facility], 163, cm, 03/05/20 13:58:00 EDT, Height, 114, kg, 04/19/18 23:58:00 EST, . Start Date: 03/19/20 Status: Ordered loratadine 10 mg oral tablet 10 mg, 1, tablet, By Mouth, Daily, # 30 tablet, Refills 3, Tot. Refills 3, Maintenance, 01/18/20 15:46:00 EDT, Route to Pharmacy Electronically, [facility]/pharmacy #[id number], 163, cm, 07/11/19 [...] 12/26/19 16:58:00 EDT, Route to Pharmacy Electronically, [facility] [id number], 163, cm, 07/11/19 13:24:00 EST, Height, 114, kg,... Start Date: 12/26/19 Status: Ordered OXcarbazepine 150 mg oral tablet See Instructions, TAKE ONE TABLET BY MOUTH 2 (two) times a day, # 60 tablet, Refills 3, Tot. Refills 3, 03/27/20 10:55:00 EST, Instructions Replace Required Details, Route to Pharmacy Electronically,[facility] [id number], 163... Start Date: 03/27/20 Status: Ordered portable oxygen concentrator portable oxygen concentrator, See Instructions, # 1 each, Refills 0, Tot. Refills 0, Maintenance, Dx severe COPD. Codes J44.9, R09.02, 01/31/20 16:26:00 EDT, Compound Start Date: 01/31/20 Status: Ordered potassium chloride 20 mEq oral tablet, extended release 1 tablet, By Mouth, Daily, # 30 tablet, 5 Refills, Maintenance, 05/13/20 8:59:00 EST, [facility], 163, cm, 03/05/20 13:58:00 EDT, Height Start Date: 05/13/20 Status: Ordered predniSONE 20 mg oral tablet 2 tablet = 40 mg, By Mouth, Daily in AM, with food or milk home delivery please, # 14 tablet, 0 Refills, Maintenance, 05/21/20 11:22:00 EST, [place], [place] - [id number], 163, cm, 03/05/20 13:58:00 EDT, Height Start Date: 05/21/20 Stop Date: 05/28/20 Status: Ordered pulse dose evaluation pulse dose evaluation, See Instructions, # 1 each, Refills 0, Tot. Refills 0, Maintenance, Pulse Dose Evaluation dx: copd,chf 150.9, j44.9, 01/31/20 16:26:00 EDT, Supply Start Date: 01/31/20 Status: Ordered Shingrix intramuscular injection = 0.5 mL, Intramuscular, Once, repeat dose in 2 to 6 months, # 2 each, 0 Refills, Soft Stop, 01/17/20 11:40:00 EDT, Powder, [facility]/pharmacy #[id number], 0.5 mL Intramuscular [...] 0 Refills, Maintenance, 03/19/20 17:18:00 EST, Tablet, [place], [place] -... Start Date: 03/19/20 Status: Ordered tinidazole 500 mg oral tablet 4 tablet = 2,000 mg, By Mouth, Daily, with food, # 8 tablet, 0 Refills, Soft Stop, 03/18/20 14:36:00 EST, [facility] [id number], 163, cm, 03/05/20 13:58:00 EDT, Height, 114, kg, 04/19/18 23:58:00 EST, Dry Weight Start Date: 03/18/20 Stop Date: 03/20/20 Status: Ordered traZODone 150 mg oral tablet 3 tablet = 450 mg, By Mouth, Daily at bedtime, Please d/c order for 300mg qhs. Correct dose 450mg qhs., # 90 tablet, 5 Refills, Maintenance, 03/27/20 10:57:00 EST, [id number], 163, cm, 03/05/20 13:58:00 EDT, Height,... Start Date: 03/27/20 Status: Ordered triamcinolone 0.025% topical cream 1 applicator, Topically, 3 times a day, PRN eczema, # 80 Gm, 2 Refills, Maintenance, 08/16/19 15:48:00 EDT, [place], [place] -, 1 applicator Topically 3 times a day,PRN:eczema, 163, cm, 07/11/19 13:24:00 EST, Height, 114, kg, 04/19/18... Start Date: 08/16/19 Status: Ordered value series power lift chair [id number] value series power lift chair [id number], See Instructions, # 1 each, Refills 0, Tot. Refills 0, Maintenance, Diagnosis codes: G89.29, M19.90, J44.9, Z74.09, 01/30/20 9:31:00 EDT, Supply Start Date: 01/30/20 Status: Ordered Ventolin HFA 108 mcg/inh inhalation aerosol with adapter 2 puffs, Inhalation, 4 times a day, PRN Wheezing/Shortness of Breath, 90 days supply, # 1 each, 5 Refills, Maintenance, 04/15/20 17:48:00 EST, [facility] [id number], 163, cm,03/05/20 13:58:00 EDT, Height, 114, kg, 04/19/18 23... Start Date: 04/15/20 Status: Ordered verapamil 120 mg oral tablet 1 tablet, By Mouth, 3 times a day, home delivery please., # 90 tablet, 5 Refills, Maintenance, 05/21/20 11:21:00 EST, [place], [place] - [id number], 163, cm, 03/05/20 13:58:00 EDT, Height Start Date: 05/21/20 Status: Ordered Vitamin D3 1000 intl units oral tablet 1 tablet = 1,000 International_Units, By Mouth, Daily, # 90 tablet, 3 Refills, Maintenance, 08/16/19 15:51:00 EDT, [place], [place] -, 163, cm, 07/11/19 13:24:00 EST, [...]
--- OUTSIDE RECORDS SUMMARY | 2023-09-15 07:39 | XMS_ITS | Continuity of Care Document ---
Author Organization [facility] Address [address] [place] [address]- Care Team Providers Care Director Integrated Name Role Phone Kwame Bolton Primary Care Physician [phone] Encounter [facility] Date(s): 07/01/23 - 08/26/23 [facility] [address] [place], [place] [phone] Attending Physician: Not on Staff, Attending MD [...] vaccine, inactivated 5 02/26/09 Gi cecile SARS-CoV-2(COVID-19)mRNA-LNP vac([id number]) 02/25/23 Recorded SARS-CoV-2 (COVID-19) mRNA-1273 vaccine 6 [...] 1Result Comment: [02/16/2023] Given at [facility] Averecord can be obtained from [facility] 2Result Comment: [02/22/2017] [facility] [phone] 3Admin Note: flulaval vis given vis date 11/16/2011 4Admin Note: VIS GIVEN VIS DATE 12/24/2009 5Admin Note: VIS GIVEN 12/25/08 malay 6Result Comment: new booster 7Result Comment: dose 2 8Result Comment: dose 1 9Result Comment: Received at [facility] on [facility] in [place] 10Admin Note: vis given 11Admin Note: vis given 12Result Comment: [id number] exp 06/2009 13Admin Note: vis given Medications [...] EST, Compound Start Date: 07/12/19 Status: Ordered Bryan Saline 0.65% nasal gel 1 sprays, Nares, Both, 4 times a day, # 22.5 Gm, 1 Refills, Maintenance, 08/20/23 15:42:00 EDT, [facility] [id number], Partial fill upon patient request if the prescription is for a schedule II opioid drug., 1 sprays Nares, Kilo... Start Date: 08/20/23 Status: Ordered B-Complex with B-12 oral tablet See Instructions, TAKE 1 TABLET BY MOUTH ONCE DAILY WITH FOOD, # 90 tablet, 1 Refills, Maintenance,05/28/23 17:52:00 EST, [facility] [id number], 90, TAKE 1 TABLET BY MOUTH ONCE DAILY WITH FOOD, 163, cm, 05/06/23 8:47:00 EST,... Start Date: 05/28/23 Status: Ordered Biotene Moisturizing Mouth oral spray 1 sprays, By Mouth, 6 times a day, BIOTENE NAME BRAND MAY BE REQUIRED, # 240 mL, 5 Refills, Maintenance, 11/18/22 8:47:00 EDT, [facility] [id number], Partial fill upon patient request if the prescription is for a schedule II o... Start Date: 11/18/22 Status: Ordered Cane See Instructions, # 1 each, Maintenance, DX LEFT KNEE PAIN /ACL TEAR /ARTHRITIS DX CODE M25.562 HT 163 CM WT 123 KG DURATION -LIETIME PATIENTS CANE BROKE, 01/06/19 8:36:49 EDT, Compound Start Date: 01/06/19 Status: Ordered Comfort EZ Pen [place] 32 gauge x 5/32 Comfort EZ Pen [place] 32 gauge x 5/32 , See Instructions, [...] each, 5 Refills, Maintenance, 03/17/23 9:55:00 EDT, [facility] [id number], Partial fill upon patient request if the prescription is for a schedule II... Start Date: 03/17/23 Status: Ordered docusate sodium 100 mg oral capsule 1 capsule, By Mouth, 2 times a day, # 60 each, 5 Refills, Maintenance, 05/14/23 10:27:00 EST, [facility], 163, cm, 05/06/23 8:47:00 EST, Height, 122, kg, 05/02/22 15:20:00 EST, Dry Weight Start Date: 05/14/23 Status: Ordered Ear Pain MD 4% otic liquid 2 drops, Ears, Both, 3 times a day, PRN Pain , Moderate, # 12.5 mL, 0 Refills, Maintenance, 01/04/23 21:24:00 EDT, [facility] [id number], Partial fill upon patient request ifthe prescription [...] tablet, 5 Refills, Maintenance, 05/27/23 18:43:00 EST, [facility], 163, cm, 05/06/23 8:47:00 EST, Height, 122, kg, 05/02/22 15:20:00 EST, Dry Weight Start Date: 05/27/23 Status: Ordered fluticasone 50 mcg/inh nasal spray 1 sprays, Nares, Both, Daily, # 16 Gm, 2 Refills, Maintenance, 07/13/23 18:31:00 EST, [facility] - [place], [place] - [id number], Partial fill upon patient request if the prescription is for a schedule II opioid drug., 1 sprays Nares, Both Daily,... Start Date: 07/13/23 Status: Ordered furosemide 40 mg oral tablet 1, tablet, By Mouth, 2 times a day, # 60 tablet, Refills 5, Maintenance, 04/13/23 13:49:00 EST, Route to Pharmacy Electronically, [facility], 163, cm, 04/12/23 8:10:00 EST, [...] tablet, 2 Refills, Maintenance, 02/15/23 18:46:00 EDT, [facility], 163, cm, 01/20/23 8:13:00 EDT, Height, 122, kg, 05/02/22 15:20:00 EST, Dry Weight Start Date: 02/15/23 Status: Ordered MiraLax oral powder for reconstitution = 17 Gm, By Mouth, Daily, PRN Constipation, dissolve in 4 to 8 oz of beverage, # 24 each, 0 Refills, Maintenance, 08/25/23 18:22:00 EDT, [facility] [id number], Partial fill upon patient request if the prescription is for a pino... Start Date: 08/25/23 Status: Ordered Nicotrol Inhaler 10 mg inhalation device See Instructions, To use with nicotine cartridges in place of cigarettes, # 3 each, 0 Refills, Maintenance, 08/31/22 9:43:00 EDT, [place], [place] - [id number], Partial fill upon patient request if the [...] tablet 10 mg, 2, tablet, By Mouth, Every 8 hours, for 7 days, for severe pain may obtain fewer, # 42 tablet, Refills 0, Tot. Refills 0, Acute 09/01/23 18:21:00 EDT, 08/25/23 18:21:00 EDT, Route to Pharmacy Electronically, [place], [place] -... Start Date: 08/25/23 Stop Date: 09/01/23 Status: Ordered Ozempic 2 mg/3 mL (0.25 mg or 0.5 mg dose) subcutaneous solution See Instructions, INJECT 0.5mg UNDER THE SKIN EVERY WEEK, # 3 mL, 5 Refills, Maintenance, 04/05/23 18:38:00 EST, [facility], 163, cm, 03/15/23 8:28:00 EDT, Height, 122, [...] Start Date: 01/31/20 Status: Ordered Potassium Chloride (Sys-Bccl-Csr M20) 20 mEq oral tablet, extended release 1 tablet, By Mouth, Daily, # 30 tablet, 2 Refills, Maintenance, 08/13/23 15:40:00 EDT, [place], [place] - [id number], 163, cm, 08/13/23 13:24:00 EDT, Height, 122, kg, 05/02/22 15:20:00 EST, Dry Weight Start Date: 08/13/23 Status: Ordered pulse dose evaluation pulse dose evaluation, See Instructions, # 1 each, Refills 0, Tot. Refills 0, Maintenance, Pulse Dose Evaluation dx: copd,chf 150.9, j44.9, 01/31/20 16:26:00 EDT, Supply Start Date: 01/31/20 Status: Ordered Readi-Cat 2 Smoothie Banana 2% oral suspension See Instructions, As directed bone drier to CT, # 900 mL, 0 Refills, Maintenance, 08/18/23 10:48:00 EDT, [facility], Partial fill upon patient request if the prescription is for a scheduleII opioid drug., As directed bone drier to [place], 163, cm... Start Date: 08/18/23 Status: Ordered Roflumilast 500 mcg oral tablet 1 tablet, By Mouth, Daily, # 30 tablet, 2 Refills, Maintenance, 08/13/23 15:40:00 EDT, [place], [place] - [id number], 163, cm, 08/13/23 13:24:00 EDT, Height, 122, [...] tablet, 5 Refills, Maintenance, 07/13/23 18:30:00 EST, [facility] [id number], please dispense in bubble pack. dose increase... Start Date: 07/13/23 Status: Ordered square orthopedic pillow with central square depression and surrounding bolster square orthopedic pillow with central square depression and surrounding bolster, See Instructions, # 1 each, Refills 0, Tot. Refills 0, Maintenance, Product number [id number] Dx codes: M54.2 Duration: lifetime, 07/21/22 14:25:00 EST, Supply Start Date: 07/21/22 Status: Ordered traZODone 150 mg oral tablet 3 tablet, By Mouth, Daily at bedtime, # 270 tablet, 6 Refills, 10/26/22 10:18:00 EDT, [facility] [id number], 163, cm, 10/14/22 8:43:00 EDT, Height, 122, kg, 05/02/22 15:20:00EST, Dry Weight Start Date: 10/26/22 Status: Ordered Trelegy Ellipta 200 mcg-62.5 mcg-25 mcg/inh inhalation powder 1 puffs, Inhalation, Daily, at the same time every day, # 9 each, 3 Refills, Maintenance, 08/31/22 9:41:00 EDT, Powder, [facility] [id number], Partial fill upon patient request if the prescription is for a schedule II opioid d... Start Date: 08/31/22 Status: Ordered value series power lift chair [id number] value series power lift chair [id number], See Instructions, # 1 each, Refills 0, [...] 4, 5 Confirmed Active BHN/CCA/CP-Jo Ann Harvey [phone]/Health fdc active care coordination Confirmed Active BHN/CCA/LCC Lisa Gutierrez [phone]/Health fdc active care coordination Confirmed Active Severe obesity (BMI 35.0-39.9) with comorbidity Confirmed Active 1Health Care Agent: Tana Powell, 2along with endo cervical curettage 3bilateral R>L [...] Care Team Personnel Name: Kwame Bolton Position: [facility] PCO Associate Professional Member Role: PCP Address: Address: [address] [place] [address] [place] [address]- Name: Vicky KILGORE, Perri Position: [facility] RN Member Role: Primary Care Nurse Name: Alicia Vallecillo RN Position: [facility] RN Member Role: Primary Care Nurse Name: Андрей Boo RN Position: [facility] Outreach Member Role: Primary Care Nurse Name: Maureen Smith RN Position: [facility] RN Member Role: Primary Care Nurse Name: Sultana Broussard RN Position: [facility] RN Member Role: Primary Care Nurse Name: Abigail Dior RN Position: [facility] RN Member Role: Primary Care Nurse Name: Ivette Carter RN Position: [facility] RN Member Role: Primary Care Nurse Name: Rukhsana Matthews RN Position: [facility] Denture Finisher Member Role: Primary Care Nurse Care Team Related Persons Name: KELLY TANA Address: home UNKNOWN CALL [facility] [place] [address] Name: MARIA TERESA UMAÑA Address: home [address] [place] [address] Name: ANG GAFFNEY Address: home [address] [place] [address] Name: CHILO AHMADI Address: home [address] [place] [id number]
--- OUTSIDE RECORDS SUMMARY | 2023-09-15 07:39 | XMS_ITS | Continuity of Care Document ---
Author Organization [facility] Address [address] [place] [address]- Care Team Providers Care Cyber Threat Analyst Name Role Phone Kwame Bolton Primary Care Physician Encounter [facility] Date(s): 01/12/22 - 02/26/[address] [address] Attending Physician: Kwame Bolton Admitting Physician: [...] 02/27/14 Give n influenza virus vaccine, inactivated 3/6/14 Give n influenza virus vaccine, inactivated 7 [...] Comment: dose 1 3Result Comment: Received at [facility] on [facility] in [place] 4Admin Note: vis given 5Admin Note: vis given 6Result Comment: [02/22/2017] [facility] [phone] 7Admin Note: flulaval vis given vis date 11/16/2011 8Admin Note: VIS GIVEN VIS DATE 12/24/2009 9Admin Note: VIS GIVEN 12/25/08 belarusian 10Result Comment: [01/03/2018 Uncharted] ERROR NOT GIVEN 11Result Comment: [id number] exp 06/2009 12Admin Note: vis given Medications [...] WITH FOOD, # 90 tablet, 3 Refills, [facility], 90, TAKE ONE TABLET BY [...] Date: 01/06/19 Status: Ordered Comfort EZ Pen [place] 32 gauge x 5/32 Comfort EZ Pen [place] 32 gauge x 5/32 , See Instructions, # 50 Unknown, 11 Refills, USE DAILY WITHvictoza injection, 163, cm, 03/25/21 9:16:00 EST, Height Start Date: 04/01/21 Status: Ordered Comfort EZ Pen [place] 32 gauge x 5/32 Comfort EZ Pen [place] 32 gauge x 5/32 , See Instructions, [...] tablet, Refills 4, Route to Pharmacy Electronically, [facility], 163, cm, 09/26/21 13:20:00 EDT, Height Start Date: 11/14/21 Status: Ordered guaiFENesin 100 mg/5 mL oral liquid 20 mL = 400 mg, By Mouth, 2 times a day, for congestion, cough. with fluids, # 240 mL, 0 Refills, Maintenance, 04/14/21 8:42:00 EST, [place], [place] - [id number], Partial fill upon patient request if the [...] 02/18/22 11:21:00 EDT, Route to Pharmacy Electronically, [facility], 163, cm, 12/29/21 9:41:00 EDT, [...] tablet, Refills 3, Route to Pharmacy Electronically, [facility], 163, cm, 09/26/21 13:20:00 EDT, Height Start Date: 12/22/21 Status: Ordered magnesium gluconate 250 mg oral tablet 1 tablet = 250 mg, By Mouth, 2 times a day, # 60 tablet, 2 Refills, Maintenance, 02/23/22 19:10:00 EDT, [facility] - [place], [place] - [id number], Partial fill upon patient request if the [...] Start Date: 01/31/20 Status: Ordered Potassium Chloride (Lcx-Lcnc-Vwn M20) 20 mEq oral tablet, extended release 1 tablet, By Mouth, Daily, # 30 tablet, 6 Refills, [facility], 163, cm, 09/26/21 13:20:00 EDT,Height [...] 0, Tot. Refills 0, Maintenance, Product number [id number] Dx codes: M54.2 Duration: lifetime, 02/27/21 19:03:00 EDT, Supply Start Date: 02/27/21 Status: Ordered traZODone 150 mg oral tablet 3 tablet, By Mouth, Daily at bedtime, # 270 tablet, 6 Refills, [facility], 163, cm, 09/26/21 13:20:00 EDT, Height Start Date: 11/14/21 Status: Ordered value series power lift chair [id number] value series power lift chair [id number], See Instructions, # 1 each, Refills 0, Tot. Refills 0, Maintenance, Diagnosis codes: G89.29, M19.90, J44.9, Z74.09, 01/30/20 9:31:00 EDT, Supply Start Date: 01/30/20 Status: Ordered varenicline 1mg tablet 1 tablet, By Mouth, 2 times a day, # 56 tablet, 5 Refills, [facility], 163, cm, 09/26/21 13:20:00 EDT, Height Start Date: 12/22/21 Status: Ordered Ventolin HFA 108 mcg/inh inhalation aerosol with adapter 2 puffs, Inhalation, 4 times a day, PRN Wheezing/Shortness of Breath, 90 days supply, # 1 each, 5 Refills, Maintenance, 10/07/20 6:45:00 EDT, [place], [place] - [id number], 163, cm, 09/24/20 13:25:00 EDT, Height Start Date: 10/07/20 Status: Ordered Victoza 18 mg/3 mL subcutaneous solution = 1.2 mg, Subcutaneous Infusion, Daily, dose increase to 1.2mg qd 04/29/21., # 15 mL, 5 Refills, Maintenance, 04/29/21 8:26:00 EST, [place], [place] - [id number], Partial fill upon patient request if the [...] 4, 5 Confirmed Active BHN/CCA/CP-Jo Ann Harvey [phone]/Health halfway active care coordination Confirmed Active Severe obesity [...] information Personnel Name: Kwame Bolton Address: Address: [address] [place] [address] [place], [place] [address]
--- OUTSIDE RECORDS SUMMARY | 2023-09-15 07:39 | XMS_ITS | Continuity of Care Document ---
Author Organization [facility] Address [address] [facility], [address] d Floor, [address] [place] [address]- Care Team Providers Care Finisher Brush Name Role Phone Kwame Bloton Primary Care Physician [phone] Encounter [facility] Date(s): 03/22/20 - 04/24/20 [facility] [address], [address], [address] [place] [id number] Attending Physician: Isaac Hu MD Admitting [...] (oldterm) 08/08/06 Given 1Result Comment: Received at [facility] on [facility] [place] 2Admin Note: vis given 3Admin Note: vis given 4Result Comment: [02/22/2017] [facility] [place] [phone] 5Admin Note: flulaval vis given vis date 11/16/2011 6Admin Note: VIS GIVEN VIS DATE 12/24/2009 7Admin Note: VIS GIVEN 12/25/08 icelandic 8Result Comment: [01/03/2018 Uncharted] ERROR NOT GIVEN 9Result Comment: [id number] exp 06/2009 10Admin Note: vis given Medications [...] capsule, 0 Refills, Maintenance, 03/05/20 14:41:00 EDT, [facility]/pharmacy #[id number], 1 capsule By Mouth [...] 5 Refills, Maintenance, 08/16/19 15:52:00 EDT, Powder, [place], [place] -, 1 puffs Inhalation Daily,Instr:[place] well after each use, 163, cm, 07/11/19 13:24:... Start Date: 08/16/19 Status: Ordered Breo Ellipta 200 mcg-25 mcg/inh inhalation powder See Instructions, INHALE 1 PUFF BY MOUTH INTO THE lungs DAILY. rinse mouth and throat after use, # 60 Unknown, 11 Refills, 03/27/20 10:56:00 EST, [place], [place] - [id number], 30, INHALE 1 PUFF BY MOUTH INTO [...] tablet, 3 Refills, Maintenance, 03/27/20 10:55:00 EST, [facility] [id number], 163, cm, 03/05/20 13:58:00 EDT, Height, 114, kg, 04/19/18 23:58:00 EST, Dry Weight Start Date: 03/27/20 Status: Ordered clonazePAM 0.5 mg oral tablet 2 tablet = 1 mg, By Mouth, 2 times a day, # 120 tablet, 2 Refills, Maintenance, 03/27/20 10:57:00 EST, [facility] [id number], 163, cm, 03/05/20 13:58:00 EDT, Height, 114, kg,04/19/18 23:58:00 EST, Dry Weight Start Date: 03/27/20 Stop Date: 06/25/20 Status: Ordered Daliresp 500 mcg oral tablet See Instructions, 1 tablet By Mouth Daily, # 30 each, 6 Refills, Maintenance, 08/16/19 15:51:00 EDT, [place], [place] -, 163, cm, 07/11/19 13:24:00 EST, Height, 114, kg, 04/19/18 23:58:00 EST, Dry Weight Start Date: 08/16/19 Status: Ordered Daliresp 500 mcg oral tablet See Instructions, TAKE ONE TABLET BY MOUTH DAILY, # 30 tablet, 6 Refills, Maintenance, [facility], 163, cm, 03/05/20 13:58:00 EDT, Height, 114, [...] 12/15/19 10:10:00 EDT, Route to Pharmacy Electronically, [place], [place] - [id number], 163, cm, 07/11/19 13:24:00 EST, Height, 114, kg... Start Date: 12/15/19 Status: Ordered docusate sodium 100 mg oral capsule See Instructions, TAKE ONE CAPSULE BY MOUTH 2 (two) times a day, # 60 capsule, 5 Refills, 03/27/20 10:56:00 EST, [place], [place] - [id number], 163, cm, 03/05/20 13:58:00 EDT, Height, 114, [...] Gm, 5 Refills, Maintenance, 08/16/19 15:53:00 EDT, [place], [place] -, 1 sprays Nares, Both 2 times a day, 163, cm, 07/11/19 13:24:00 EST, Height, 114, kg, 04/19/18 23:58:00 EST, Dry Weight Start Date: 08/16/19 Status: Ordered furosemide 40 mg oral tablet 40 mg, 1, tablet, By Mouth, 2 times a day, # 60 tablet, Refills 3, Tot. Refills 3, Maintenance, 03/27/20 10:58:00 EST, Route to Pharmacy Electronically, [place], [place] - [id number], 163, cm, 03/05/20 13:58:00 EDT, Height, 114, kg, 1... Start Date: 03/27/20 Stop Date: 07/25/20 Status: Ordered guaiFENesin 100 mg/5 mL oral liquid 20 mL = 400 mg, By Mouth, Every 6 hours, PRN Cough and Congestion, with fluids, # 240 mL, 0 Refills, Maintenance, 09/28/19 14:14:00 EDT, [place], [place] -, 163, cm, 07/11/19 13:24:00 EST, [...] 12/05/19 8:40:00 EDT, Route to Pharmacy Electronically, [place], [place] -, 163, cm, 07/11/19 13:24:... Start [...] 30 tablet, 5 Refills, 11/13/19 14:32:00 EDT, [place], [place] -, 163, cm, 07/11/19 13:24:00 EST, [...] InstructionsReplace Required Details, Route to Pharmacy Electronically, [facility], 163, cm, 03/05/20 13:58:00 EDT, Height, 114, kg, 04/19/18 23:58:00 EST, . Start Date: 03/19/20 Status: Ordered loratadine 10 mg oral tablet 10 mg, 1, tablet, By Mouth, Daily, # 30 tablet, Refills 3, Tot. Refills 3, Maintenance, 01/18/20 15:46:00 EDT, Route to Pharmacy Electronically, [facility]/pharmacy #[id number], 163, cm, 07/11/19 [...] 12/26/19 16:58:00 EDT, Route to Pharmacy Electronically, [facility] - [place], [place] - [id number], 163, cm, 07/11/19 13:24:00 EST, Height, 114, kg,... Start Date: 12/26/19 Status: Ordered OXcarbazepine 150 mg oral tablet See Instructions, TAKE ONE TABLET BY MOUTH 2 (two) times a day, # 60 tablet, Refills 3, Tot. Refills 3, 03/27/20 10:55:00 EST, Instructions Replace Required Details, Route to Pharmacy Electronically,[place], [place] - [id number], 163... Start Date: 03/27/20 Status: Ordered portable oxygen concentrator portable oxygen concentrator, See Instructions, # 1 each, Refills 0, Tot. Refills 0, Maintenance, Dx severe COPD. Codes J44.9, R09.02, 01/31/20 16:26:00 EDT, Compound Start Date: 01/31/20 Status: Ordered potassium chloride 20 mEq oral tablet, extended release 1 tablet = 20 mEq, By Mouth, Daily, # 30 tablet, 5 Refills, Maintenance, 08/16/19 15:50:00 EDT, [place], [place] -, 163, cm, 07/11/19 13:24:00 EST, Height, 114, kg, 04/19/18 23:58:00EST, Dry Weight Start Date: 08/16/19 Status: Ordered pregabalin 25 mg oral capsule See Instructions, 1 capsule 3 times a day for a week, then 1 capsule 2 times a day for a week, then1 capsule a day for 1 week then stop., # 43 each, 0 Refills, Maintenance, 01/17/20 11:36:00 EDT, [place], [place] - [id number], 163, c... Start Date: 01/17/20 Status: Ordered [...] Refills, Soft Stop, 01/17/20 11:40:00 EDT, Powder, [id number], 0.5 mL Intramuscular Once,Instr:repeat dose in [...] 0 Refills, Maintenance, 03/19/20 17:18:00 EST, Tablet, [place], [place] -... Start Date: 03/19/20 Status: Ordered tinidazole 500 mg oral tablet 4 tablet = 2,000 mg, By Mouth, Daily, with food, # 8 tablet, 0 Refills, Soft Stop, 03/18/20 14:36:00 EST, [facility] [id number], 163, cm, 03/05/20 13:58:00 EDT, Height, 114, kg, 04/19/18 23:58:00 EST, Dry Weight Start Date: 03/18/20 Stop Date: 03/20/20 Status: Ordered traZODone 150 mg oral tablet 3 tablet = 450 mg, By Mouth, Daily at bedtime, Please d/c order for 300mg qhs. Correct dose 450mg qhs., # 90 tablet, 5 Refills, Maintenance, 03/27/20 10:57:00 EST, [place], [place] -[id number], 163, cm, 03/05/20 13:58:00 EDT, Height,... Start Date: 03/27/20 Status: Ordered triamcinolone 0.025% topical cream 1 applicator, Topically, 3 times a day, PRN eczema, # 80 Gm, 2 Refills, Maintenance, 08/16/19 15:48:00 EDT, [place], [place] -, 1 applicator Topically 3 times a day,PRN:eczema, 163, cm, 07/11/19 13:24:00 EST, Height, 114, kg, 04/19/18... Start Date: 08/16/19 Status: Ordered value series power lift chair [id number] value series power lift chair [id number], See Instructions, # 1 each, Refills 0, Tot. Refills 0, Maintenance, Diagnosis codes: G89.29, M19.90, J44.9, Z74.09, 01/30/20 9:31:00 EDT, Supply Start Date: 01/30/20 Status: Ordered Ventolin HFA 108 mcg/inh inhalation aerosol with adapter 2 puffs, Inhalation, 4 times a day, PRN Wheezing/Shortness of Breath, 90 days supply, # 1 each, 5 Refills, Maintenance, 04/15/20 17:48:00 EST, [place], [place] - [id number], 163, cm,03/05/20 13:58:00 EDT, Height, 114, kg, 04/19/18 23... Start Date: 04/15/20 Status: Ordered verapamil 120 mg oral tablet 1 tablet = 120 mg, By Mouth, 3 times a day, dose increase 120 tid 09/28/2019., # 90 tablet, 5 Refills, Maintenance, 11/13/19 14:41:00 EDT, [place], [place] -, 163, cm, 07/11/19 13:24:00 EST, Height, 114, kg, 04/19/18 23:58:00 EST, Dry... Start Date: 11/13/19 Status: Ordered Vitamin D3 1000 intl units oral tablet 1 tablet = 1,000 International_Units, By Mouth, Daily, # 90 tablet, 3 Refills, Maintenance, 08/16/19 15:51:00 EDT, [place], [place] -, 163, cm, 07/11/19 13:24:00 EST, [...]
--- OUTSIDE RECORDS SUMMARY | 2023-09-15 07:39 | XMS_ITS | Continuity of Care Document ---
Author Organization [facility] Address [address] [place] [address]- Care Team Providers Care Straddle Bug Operator Name Role Phone Kwame Bolton Primary Care Phys[facility]): [facility] - 08/19/19 [facility] [address] [place] [address]- [facility] Attending Physician: Admtr, Ar8 Allergies, Adverse Reactions, Alerts [...] Vaccine (oldterm) 08/08/06 Given 1Result Comment: [02/22/2017] [facility] [id number] 2Admin Note: flulaval vis given vis date 11/16/2011 3Admin Note: VIS GIVEN VIS DATE 12/24/2009 4Admin Note: VIS GIVEN 12/25/08 tristanian 5Result Comment: [01/03/2018 Uncharted] ERROR NOT GIVEN 6Result Comment: [id number] exp 06/2009 7Admin Note: vis given 8Admin [...] 08/16/19 15:54:00 EDT, Route to Pharmacy Electronically, [place], [place] -, 163, cm, 07/11/19 13:24:00 ESTWin... [...] 5 Refills, Maintenance, 08/16/19 15:52:00 EDT, Powder, [place], [place] -, 1 puffs Inhalation Daily,Instr:[place] [facility] [...] Acute 02/12/20 15:52:00 EDT, 08/16/19 15:52:00 EDT, [place], [place] -, 163, cm, 07/11/19 13:24:00 EST,Height, 114, kg, 04/19/18 23:58:00 EST, Dry Weight Start Date: 08/16/19 Stop Date: 02/12/20 Status: Ordered clonazePAM 0.5 mg oral tablet 2 tablet = 1 mg, By Mouth, 2 times a day, dose increased to 2 tabs bid 05/2018, # 120 tablet, 2 Refills, Maintenance, 08/16/19 15:49:00 EDT, [place], [place] -, 163, cm, 07/11/19 13:24:00 EST, Height, 114, kg, 04/19/18 23:58:00 EST, D... Start Date: 08/16/19 Stop Date: 11/14/19 Status: Ordered Daliresp 500 mcg oral tablet See Instructions, 1 tablet By Mouth Daily, # 30 each, 6 Refills, Maintenance, 08/16/19 15:51:00 EDT, [place], [place] -, 163, cm, 07/11/19 13:24:00 EST, [...] Maintenance, 08/15/2014:51:00 EDT, Route to Pharmacy Electronically, [place], [place] -, 163, cm, 07/11/19 13:24:00 EST, [...] Gm, 5 Refills, Maintenance, 08/16/19 15:53:00 EDT, [place], [place] -, 1 sprays Nares, Both 2 times a day, 163, cm, 07/11/19 13:24:00 EST, Height, 114, kg, 04/19/18 23:58:00 EST, Dry Weight Start Date: 08/16/19 Status: Ordered furosemide 40 mg oral tablet 40 mg, 1, tablet, By Mouth, 2 times a day, # 60 tablet, Refills 5, Tot. Refills 5, Maintenance, 08/16/19 15:51:00 EDT, Route to Pharmacy Electronically, [place], [place] -, 163, cm, 07/11/19 13:24:00 EST, [...] tablet, 5 Refills, Maintenance, 08/16/19 15:50:00 EDT, [place], [place] -, 163, cm, 07/11/19 13:24:00 EST, Height, 114, kg, 04/19/18 23:58:00EST, Dry Weight Start Date: 08/16/19 Status: Ordered tiZANidine 4 mg oral capsule 1 capsule = 4 mg, By Mouth, 3 times a day, use for severe muscle spasm, # 30 capsule, 3 Refills, Maintenance, 08/16/19 15:50:00 EDT, [place], [place] -, 163, cm, 07/11/19 13:24:00 EST, Height, 114, kg, 04/19/18 23:58:00 EST, Dry Weight Start Date: 08/16/19 Stop Date: 09/25/19 Status: Ordered traZODone 150 mg oral tablet 3 tablet = 450 mg, By Mouth, Daily at bedtime, Please d/c order for 300mg qhs. Correct dose 450mg qhs., # 90 tablet, 5 Refills, Maintenance, 08/16/19 15:52:00 EDT, [place], [place] -, 163, cm, 07/11/19 13:24:00 EST, Height, 114, kg, 1... Start Date: 08/16/19 Status: Ordered triamcinolone 0.025% topical cream 1 applicator, Topically, 3 times a day, PRN eczema, # 80 Gm, 2 Refills, Maintenance, 08/16/19 15:48:00 EDT, [place], [place] -, 1 applicator Topically 3 times a day,PRN:eczema, 163, cm, 07/11/19 13:24:00 EST, Height, 114, kg, 04/19/18... Start Date: 08/16/19 Status: Ordered Ventolin HFA 108 mcg/inh inhalation aerosol with adapter 2 puffs, Inhalation, 4 times a day, PRN Wheezing/Shortness of Breath, 90 days supply, # 1 each, 5 Refills, Maintenance, 08/16/19 15:53:00 EDT, [place], [place] -, 163, cm, 07/11/19 13:24:00 EST, Height, 114, kg, 04/19/18 23:58:00 EST,... Start Date: 08/16/19 Status: Ordered Vitamin D3 1000 intl units oral tablet 1 tablet = 1,000 International_Units, By Mouth, Daily, # 90 tablet, 3 Refills, Maintenance, 08/16/19 15:51:00 EDT, [place], [place] -, 163, cm, 07/11/19 13:24:00 EST, [...]
--- OUTSIDE RECORDS SUMMARY | 2023-09-15 07:39 | XMS_ITS | Continuity of Care Document ---
Author Organization [facility] Address [address] [place] [address]- Care Team Providers Care Front End Driver Name Role Phone Kwame Bolton Primary Care Physician [facility] 04[facility]15/23 - 05/15/23 [facility] [address] [place] [id number]- Allergies, Adverse Reactions, Alerts Substance Reaction Severity [...] vaccine, inactivated 5 02/26/09 Gi cecile SARS-CoV-2(COVID-19)mRNA-LNP vac([id number]) 02/25/23 Recorded SARS-CoV-2 (COVID-19) mRNA-1273 vaccine 6 [...] 1Result Comment: [02/16/2023] Given at [facility] Averecord can be obtained from [facility] 2Result Comment: [02/22/2017] [facility] [id number] 3Admin Note: flulaval vis given vis date 11/16/2011 4Admin Note: VIS GIVEN VIS DATE 12/24/2009 5Admin Note: VIS GIVEN 12/25/08 macedonian 6Result Comment: new booster 7Result Comment: dose 2 8Result Comment: dose 1 9Result Comment: Received at [facility] on [facility]. in [place] 10Admin Note: vis given 11Admin Note: vis given 12Result Comment: [id number] exp 06/2009 13Admin Note: vis given Medications [...] EST, Compound Start Date: 07/12/19 Status: Ordered Alton Saline 0.65% nasal gel 1 sprays, Nares, Both, 4 times a day, # 22.5 Gm, 1 Refills, Maintenance, 04/12/23 8:20:00 EST, [facility] [id number], Partial fill upon patient request if the prescription isfor a schedule II opioid drug., 1 sprays Nares, Bot... Start Date: 04/12/23 Status: Ordered Azithromycin 5 Day Dose Pack 250 mg oral tablet See Instructions, as directed on package labeling, # 6 each, 0 Refills, Maintenance, 01/05/23 14:03:00 EDT, [facility] [id number], Partial fill upon patient request if the prescription is for a schedule II opioid drug., 163, c... Start Date: 01/05/23 Status: Ordered B-Complex with B-12 oral tablet See Instructions, TAKE 1 TABLET BY MOUTH ONCE DAILY WITH FOOD, # 90 tablet, 1 Refills, Maintenance,11/18/22 10:57:00 EDT, [facility], 90, TAKE 1 TABLET BY MOUTH ONCE DAILY WITH FOOD, 163, cm, 11/18/22 8:31:00 EDT, Height, 122, kg, 05/02/22 15:20... Start Date: 11/18/22 Status: Ordered Biotene Moisturizing Mouth oral spray 1 sprays, By Mouth, 6 times a day, BIOTENE NAME BRAND MAY BE REQUIRED, # 240 mL, 5 Refills, Maintenance, 11/18/22 8:47:00 EDT, [facility] [id number], Partial fill upon patient request if the prescription is for a schedule II o... Start Date: 11/18/22 Status: Ordered Cane See Instructions, # 1 each, Maintenance, DX LEFT KNEE PAIN /ACL TEAR /ARTHRITIS DX CODE M25.562 HT 163 CM WT 123 KG DURATION -LIETIME PATIENTS VERA BOYKIN, 01/06/19 8:36:49 EDT, Compound Start Date: 01/06/19 Status: Ordered Comfort EZ Pen [place] 32 gauge x 5/32 Comfort EZ Pen [place] 32 gauge x 5/32 , See Instructions, # 50 Unknown, 11 Refills, USE DAILY WITHvictoza injection, 163, cm, 03/25/21 9:16:00 EST, Height Start Date: 04/01/21 Status: Ordered Comfort EZ Pen [place] 32 gauge x 5/32 Comfort EZ Pen [place] 32 gauge x 5/32 , See Instructions, # 50 Unknown, 0 Refills, USE DAILY WITH victoza injection, 163, cm, 12/18/20 9:01:00 EDT, Height Start Date: 02/05/21 Status: Ordered Comfort EZ Pen [place] 32 gauge x 5/32 Comfort EZ Pen [place] 32 gauge x 5/32 , See Instructions, [...] each, 5 Refills, Maintenance, 03/17/23 9:55:00 EDT, [place], [place] - [id number], Partial fill upon patient request if the prescription is for a schedule II... Start Date: 03/17/23 Status: Ordered docusate sodium 100 mg oral capsule 1 capsule, By Mouth, 2 times a day, # 60 each, 5 Refills, Maintenance, 05/14/23 10:27:00 EST, [facility], 163, cm, 05/06/23 8:47:00 EST, Height, 122, kg, 05/02/22 15:20:00 EST, Dry Weight Start Date: 05/14/23 Status: Ordered Ear Pain MD 4% otic liquid 2 drops, Ears, Both, 3 times a day, PRN Pain , Moderate, # 12.5 mL, 0 Refills, Maintenance, 01/04/23 21:24:00 EDT, [place], [place] - [id number], Partial fill upon patient request ifthe prescription [...] tablet, 5 Refills, Maintenance, 11/18/22 10:57:00 EDT, [facility], 163, cm, 11/18/22 8:31:00 EDT, Height, 122, kg, 05/02/22 15:20:00 EST, Dry Weight Start Date: 11/18/22 Status: Ordered fluticasone 50 mcg/inh nasal spray 1 sprays, Nares, Both, Daily, # 16 Gm, 2 Refills, Maintenance, 12/29/22 17:51:00 EDT, [place], [place] - [id number], Partial fill upon patient request if the prescription is for a schedule II opioid drug., 1 sprays Nares, Both Daily,... Start Date: 12/29/22 Status: Ordered furosemide 40 mg oral tablet 1, tablet, By Mouth, 2 times a day, # 60 tablet, Refills 5, Maintenance, 04/13/23 13:49:00 EST, Route to Pharmacy Electronically, [facility], 163, cm, 04/12/23 8:10:00 EST, Height, 122, [...] 04/15/23 14:20:00 EST, Route to Pharmacy Electronically, [facility], 163, cm, 04/12/23 8:10:00 EST, Height, 122, [...] lifetime., 02/27/21 19:01:00 EDT, Supply Start Date: 10/14/21 Status: Ordered Locking Bathtub Grab Bar Locking Bathtub Grab Bar, See Instructions, # 1 each, Refills 0, Tot. Refills 0, Maintenance, DX OSTEOARTHRITIS OF KNEES,CHF,WEAKNESS, RISK FOR FALLS M25.562,M17.0.150.9 DURATION - LIFETIME, 06/17/1913:14:03 EST, Compound Start Date: 06/17/18 Status: Ordered loratadine 10 mg oral tablet 1, tablet, By Mouth, Daily, # 30 tablet, Refills 5, Maintenance, 02/10/23 10:21:00 EDT, Route to Pharmacy Electronically, [facility], 163, cm, 01/20/23 8:13:00 EDT, Height, 122, kg, 05/02/22 15:20:00 EST, Dry Weight Start Date: 02/10/23 Status: Ordered Mag-G 500 mg oral tablet 0.5 tablet, By Mouth, 2 times a day, # 30 tablet, 2 Refills, Maintenance, 02/15/23 18:46:00 EDT, [facility], 163, cm, 01/20/23 8:13:00 EDT, Height, 122, kg, 05/02/22 15:20:00 EST, Dry Weight Start Date: 02/15/23 Status: Ordered Nicotrol Inhaler 10 mg inhalation device See Instructions, To use with nicotine cartridges in place of cigarettes, # 3 each, 0 Refills, Maintenance, 08/31/22 9:43:00 EDT, [place], [place] - [id number], Partial fill upon patient request if the [...] Start Date: 01/31/20 Status: Ordered Potassium Chloride (Cvr-Cexu-Vkf M20) 20 mEq oral tablet, extended release [...] tablet, 6 Refills, Maintenance, 01/13/23 15:35:00 EDT, [facility], 163, cm, 12/22/22 8:54:00 EDT, [...] tablet, 5 Refills, Maintenance, 02/23/23 13:56:00 EDT, [place], [place] - [id number], please dispense in bubble pack. dose increase... Start Date: 02/23/23 Status: Ordered square orthopedic pillow with central square depression and surrounding bolster square orthopedic pillow with central square depression and surrounding bolster, See Instructions, # 1 each, Refills 0, Tot. Refills 0, Maintenance, Product number [id number] Dx codes: M54.2 Duration: lifetime, 07/21/22 14:25:00 EST, Supply Start Date: 07/21/22 Status: Ordered traZODone 150 mg oral tablet 3 tablet, By Mouth, Daily at bedtime, # 270 tablet, 6 Refills, 10/26/22 10:18:00 EDT, [place], [place] - [id number], 163, cm, 10/14/22 8:43:00 EDT, Height, 122, kg, 05/02/22 15:20:00EST, Dry Weight Start Date: 10/26/22 Status: Ordered Trelegy Ellipta 200 mcg-62.5 mcg-25 mcg/inh inhalation powder 1 puffs, Inhalation, Daily, at the same time every day, # 9 each, 3 Refills, Maintenance, 08/31/22 9:41:00 EDT, Powder, [place], [place] - [id number], Partial fill upon patient request if the prescription is for a schedule II opioid d... Start Date: 08/31/22 Status: Ordered value series power lift chair [id number] value series power lift chair [id number], See Instructions, # 1 each, Refills 0, Tot. Refills 0, Maintenance, Diagnosis codes: G89.29, M19.90, J44.9, Z74.09, 01/30/20 9:31:00 EDT, Supply Start Date: 01/30/20 Status: Ordered Ventolin HFA 108 mcg/inh inhalation aerosol with adapter 2 puffs, Inhalation, 4 times a day, PRN NEEDED FOR SHORTNESS OF BREATH OR FOR WHEEZING, # 18 Gm,5 Refills, Maintenance, 04/13/23 13:49:00 EST, [facility], 163, cm, 04/12/23 8:10:00 EST, Height, 122, kg, 05/02/22 15:20:00 EST, Dry Weight Start Date: 04/13/23 Status: Ordered wrist blood pressure monitor wrist blood pressure monitor, See Instructions, # 1 each, Refills 0, Tot. Refills 0, Maintenance, check daily BP for hypertension. R03.0, 12/05/19 8:52:00 EDT, Supply Start Date: 12/05/19 Status: Ordered Problem List Condition Confirmation Course Effective Dates Status [facility] Informant Adjustment Disorder with Mixed [...] 4, 5 Confirmed Active BHN/CCA/CP-Jo Ann Harvey [phone]/Health jail active care coordination Confirmed Active BHN/CCA/LCC Lisa Gutierrez [phone]/Health jail active care coordination Confirmed Active Severe [...] Care Team Personnel Name: Kwame Bolton Position: [facility] PCO Associate Professional Member Role: PCP Address: Address: [address] [place] [address] [place] [address]- Name: Perri Perry RN Position: [facility] RN Member Role: Primary Care Nurse Name: Alicia Vallecillo RN Position: [facility] ED RN W/OE and Tasks Member Role: Primary Care Nurse Name: Maureen Smith RN Position: [facility] RN Member Role: Primary Care Nurse Name: Sultana Broussard RN Position: [facility] RN Member Role: Primary Care Nurse Name: Abigail Dior RN Position: [facility] RN Member Role: Primary Care Nurse Name: Ivette Carter RN Position: [facility] RN Member Role: Primary Care Nurse Name: Rukhsana Matthews RN Position: [facility] Hospital Database Administrator Member Role: Primary Care Nurse Care Team Related Persons Name: SHIRAZTUNDE TANA Address: [place] [address] Name: MARIA TERESA UMAÑA Address: home [address] [place] [address] Name: ANG GAFFNEY Address: home [address] [place] [address] Name: CHILO AHMADI Address: home [address] [address]
--- OUTSIDE RECORDS SUMMARY | 2023-09-15 07:39 | XMS_ITS | Continuity of Care Document ---
Author Organization [facility] Address [address] [place] [address]- Care Team Providers Care Offset Platemaker Name Role Phone Kwame Bolton Primary Care Physician [facility] - 03/12/23 [facility] [address] [place] [phone]- Allergies, Adverse Reactions, Alerts Substance Reaction Severity Status Shrimp throat tightening; vomiting Active FIRST Metronidazole 1 vomiting, diarrhea, dyspnea Pers istent Moderate Active Lobster throat tightening; vomiting Active Other Environmental Allergy Seasonal Allergies Active 1VOMITING DIARRHEA,SEVERE DYPNEA Immunizations Given and Recorded Vaccine Date Status Refusal Reason influenza virus vaccine, inactivated 02/16/23 Casey rded [...] 04/19/12 Gi cecile influenza virus vaccine, inactivated 03/11/10 Gi cecile influenza virus vaccine, inactivated 5 02/26/09 Gi cecile SARS-CoV-2 (COVID-19) mRNA-1273 vaccine 6 03/02/22 Recorded [...] 1Result Comment: [02/16/2023] Given at [facility] Averecord can be obtained from [facility] 2Result Comment: [02/22/2017] [facility] [id number] 3Admin Note: flulaval vis given vis date 11/16/2011 4Admin Note: VIS GIVEN VIS DATE 12/24/2009 5Admin Note: VIS GIVEN 12/25/08 azeri 6Result Comment: new booster 7Result Comment: dose 2 8Result Comment: dose 1 9Result Comment: Received at [facility] [place] 10Admin Note: vis given 11Admin Note: vis given 12Result Comment: [id number] exp 06/2009 13Admin Note: vis given Medications [...] each, 0 Refills, Maintenance, 01/05/23 14:03:00 EDT, [place], [place] - [id number], Partial fill upon patient request if the prescription is for a schedule II opioid drug., 163, c... Start Date: 01/05/23 Status: Ordered B-Complex with B-12 oral tablet See Instructions, TAKE 1 TABLET BY MOUTH ONCE DAILY WITH FOOD, # 90 tablet, 1 Refills, Maintenance,11/18/22 10:57:00 EDT, [facility], 90, TAKE 1 TABLET BY MOUTH ONCE DAILY WITH FOOD, 163, cm, 11/18/22 8:31:00 EDT, Height, 122, kg, 05/02/22 15:20... Start Date: 11/18/22 Status: Ordered Biotene Moisturizing Mouth oral spray 1 sprays, By Mouth, 6 times a day, BIOTENE NAME BRAND MAY BE REQUIRED, # 240 mL, 5 Refills, Maintenance, 11/18/22 8:47:00 EDT, [facility] [id number], Partial fill upon patient request if the prescription is for a schedule II o... Start Date: 11/18/22 Status: Ordered Cane See Instructions, # 1 each, Maintenance, DX LEFT KNEE PAIN /ACL TEAR /ARTHRITIS DX CODE M25.562 HT 163 CM WT 123 KG DURATION -LIETIME PATIENTS CANE ASHUTOSH, 01/06/19 8:36:49 EDT, Compound Start Date: 01/06/19 Status: Ordered Comfort EZ Pen [place] 32 gauge x 5/32 Comfort EZ Pen [place] 32 gauge x 5/32 , See Instructions, # 50 Unknown, 11 Refills, USE DAILY WITHvictoza injection, 163, cm, 03/25/21 9:16:00 EST, Height Start Date: 04/01/21 Status: Ordered Comfort EZ Pen [place] 32 gauge x 5/32 Comfort EZ Pen [place] 32 gauge x 5/32 , See Instructions, # 50 Unknown, 0 Refills, USE DAILY WITH victoza injection, 163, cm, 12/18/20 9:01:00 EDT, Height Start Date: 02/05/21 Status: Ordered Comfort EZ Pen [place] 32 gauge x 5/32 Comfort EZ Pen [place] 32 gauge x 5/32 , See Instructions, [...] each, 5 Refills, Maintenance, 11/18/22 8:49:00 EDT, [facility] [id number], docusate dosing increase to bid 11/18/22., 163, cm, 11/18/22 8:3... Start Date: 11/18/22 Status: Ordered Ear Pain MD 4% otic liquid 2 drops, Ears, Both, 3 times a day, PRN Pain , Moderate, # 12.5 mL, 0 Refills, Maintenance, 01/04/23 21:24:00 EDT, [facility] [id number], Partial fill upon patient request ifthe prescription [...] tablet, 5 Refills, Maintenance, 11/18/22 10:57:00 EDT, [facility], 163, cm, 11/18/22 8:31:00 EDT, Height, 122, kg, 05/02/22 15:20:00 EST, Dry Weight Start Date: 11/18/22 Status: Ordered fluticasone 50 mcg/inh nasal spray 1 sprays, Nares, Both, Daily, # 16 Gm, 2 Refills, Maintenance, 12/29/22 17:51:00 EDT, [facility] - [place], [place] - [id number], Partial fill upon patient request if the prescription is for a schedule II opioid drug., 1 sprays Nares, Both Daily,... Start Date: 12/29/22 Status: Ordered furosemide 40 mg oral tablet 1, tablet, By Mouth, 2 times a day, # 60 tablet, Refills 5, Maintenance, 10/21/22 11:08:00 EDT, Route to Pharmacy Electronically, [facility], 163, cm, 10/14/22 8:43:00 EDT, [...] 02/15/23 10:38:00 EDT, Route to Pharmacy Electronically, [facility], 163, cm, 01/20/23 8:13:00 EDT, Height, [...] 02/10/23 10:21:00 EDT, Route to Pharmacy Electronically, [facility], 163, cm, 01/20/23 8:13:00 EDT, Height, 122, kg, 05/02/22 15:20:00 EST, Dry Weight Start Date: 02/10/23 Status: Ordered Mag-G 500 mg oral tablet 0.5 tablet, By Mouth, 2 times a day, # 30 tablet, 2 Refills, Maintenance, 02/15/23 18:46:00 EDT, [facility], 163, cm, 01/20/23 8:13:00 EDT, Height, 122, kg, 05/02/22 15:20:00 EST, Dry Weight Start Date: 02/15/23 Status: Ordered Nicotrol Inhaler 10 mg inhalation device See Instructions, To use with nicotine cartridges in place of cigarettes, # 3 each, 0 Refills, Maintenance, 08/31/22 9:43:00 EDT, [facility] [id number], Partial fill upon patient request if the [...] each, 5 Refills, Maintenance, 11/18/22 8:46:00 EDT, [place], [place] - [id number], dose increase to 0.5mg per week 11/18/22., [...] Start Date: 01/31/20 Status: Ordered Potassium Chloride (Hyv-Tick-Dmz M20) 20 mEq oral tablet, extended release [...] tablet, 5 Refills, Maintenance, 02/23/23 13:56:00 EDT, [facility] [id number], please dispense in bubble pack. dose increase... Start Date: 02/23/23 Status: Ordered square orthopedic pillow with central square depression and surrounding bolster square orthopedic pillow with central square depression and surrounding bolster, See Instructions, # 1 each, Refills 0, Tot. Refills 0, Maintenance, Product number [id number] Dx codes: M54.2 Duration: lifetime, 07/21/22 14:25:00 EST, Supply Start Date: 07/21/22 Status: Ordered traZODone 150 mg oral tablet 3 tablet, By Mouth, Daily at bedtime, # 270 tablet, 6 Refills, 10/26/22 10:18:00 EDT, [facility] [id number], 163, cm, 10/14/22 8:43:00 EDT, Height, 122, kg, 05/02/22 15:20:00EST, Dry Weight Start Date: 10/26/22 Status: Ordered Trelegy Ellipta 200 mcg-62.5 mcg-25 mcg/inh inhalation powder 1 puffs, Inhalation, Daily, at the same time every day, # 9 each, 3 Refills, Maintenance, 08/31/22 9:41:00 EDT, Powder, [facility] [id number], Partial fill upon patient request if the prescription is for a schedule II opioid d... Start Date: 08/31/22 Status: Ordered value series power lift chair [id number] value series power lift chair [id number], See Instructions, # 1 each, Refills 0, Tot. Refills 0, Maintenance, Diagnosis codes: G89.29, M19.90, J44.9, Z74.09, 01/30/20 9:31:00 EDT, Supply Start Date: 01/30/20 Status: Ordered Ventolin HFA 108 mcg/inh inhalation aerosol with adapter 2 puffs, Inhalation, 4 times a day, PRN Wheezing/Shortness of Breath, 90 days supply, # 3 each, 1 Refills, Maintenance, 10/21/22 11:03:00 EDT, [facility] - [place], [place] - [id number], 163, cm,10/14/22 8:43:00 EDT, Height, 122, kg, 05/02/22 15:... Start Date: 10/21/22 Status: Ordered wrist blood pressure monitor wrist blood pressure monitor, See Instructions, # 1 each, Refills 0, Tot. Refills 0, Maintenance, check daily BP for hypertension. R03.0, 12/05/19 8:52:00 EDT, Supply Start Date: 12/05/19 Status: Ordered Problem List Condition Confirmation Course Effective Dates Status Health at Informant Adjustment Disorder with Mixed Anxiety [...] 4, 5 Confirmed Active BHN/CCA/CP-Jo Ann Harvey [phone]/Health long-term active care coordination Confirmed Active Severe obesity [...] Care Team Personnel Name: Kwame Bolton Position: [facility] PCO Associate Professional Member Role: PCP Address: Address: [address] [place] [address] [place] [address]- Name: Perri Perry RN Position: [facility] RN Member Role: Primary Care Nurse Name: Alicia Vallecillo RN Position: [facility] RN Member Role: Primary Care Nurse Name: Maureen Smith RN Position: [facility] RN Member Role: Primary Care Nurse Name: Sultana Broussard RN Position: [facility] RN Member Role: Primary Care Nurse Name: Abigail Dior RN Position: [facility] RN Member Role: Primary Care Nurse Name: Ivette Carter RN Position: [facility] RN Member Role: Primary Care Nurse Name: Rukhsana Matthews RN Position: [facility] Hospital Faith Healer Member Role: Primary Care Nurse Care Team Related Persons Name: TANA MENDOZA Address: [place] [address] Name: MARIA TERESA UMAÑA Address: home [address] [place] [address] Name: ANG GAFFNEY Address: home [address] [place] [address] Name: CHILO AHMADI Address: home [address] [address]
--- OUTSIDE RECORDS SUMMARY | 2023-09-15 07:39 | XMS_ITS | Continuity of Care Document ---
Author Organization [facility] Address [address] [place] [address]- Care Team Providers Care Arm Rest Builder Name Role Phone Kwame Bolton Primary Care Physician [phone] [facility]): [facility]26[facility] - 12/13/19 [facility] [address] [place] [id number]- [facility] Attending Physician: Not on Staff, Attending MD [...] (oldterm) 08/08/06 Given 1Result Comment: [02/22/2017] [facility] [id number] 2Admin Note: flulaval vis given vis date 11/16/2011 3Admin Note: VIS GIVEN VIS DATE 12/24/2009 4Admin Note: VIS GIVEN 12/25/08 honduran 5Result Comment: [01/03/2018 Uncharted] ERROR NOT GIVEN 6Result Comment: [id number] exp 06/2009 7Admin Note: vis given 8Admin Note: vis given 9Admin Note: vis given Medications 02 2L VIA NASAL CANNULA 02 2L VIA NASAL CANNULA, See Instructions, # 1 each, Refills 0, Tot. Refills 0, Maintenance, 02 2L VIA NASAL CANNULA DX:COPD CHF J45.909 I50.9 DURATION LIFETIME Also needs portable o2 or portable concentrator, 12/08/19 12:42:00 EDT, Compound Start Date: 12/08/19 Status: Ordered Acapella Device Acapella Device, See Instructions, # 1 each, Refills 3, Tot. Refills 3, Maintenance, COPD CHF 150.9J44.9, 07/12/19 11:29:00 EST, Compound Start Date: 07/12/19 Status: Ordered acetaminophen 325 mg oral tablet 650 mg, 2, tablet, By Mouth, Every 8 hours, PRN, # 100 tablet, Refills 1, Tot. Refills 1, Maintenance, Pain , Moderate, 08/16/19 15:54:00 EDT, Route to Pharmacy Electronically, [place], [place] -, 163, cm, 07/11/19 13:24:00 EST, Heigh... Start Date: 08/16/19 Status: Ordered Biotene Moisturizing [...] 5 Refills, Maintenance, 08/16/19 15:52:00 EDT, Powder, [place], [place] -, 1 puffs Inhalation Daily,Instr:[place] [facility] [...] Acute 02/12/20 15:52:00 EDT, 08/16/19 15:52:00 EDT, [place], [place] -, 163, cm, 07/11/19 13:24:00 EST,Height, 114, kg, 04/19/18 23:58:00 EST, Dry Weight Start Date: 08/16/19 Stop Date: 02/12/20 Status: Ordered clonazePAM 0.5 mg oral tablet 2 tablet = 1 mg, By Mouth, 2 times a day, dose increased to 2 tabs bid 05/2018, # 120 tablet, 2 Refills, Maintenance, 11/22/19 8:21:00 EDT, [place], [place] -, 163, cm, 07/11/19 13:24:00 EST, Height, 114, kg, 04/19/18 23:58:00 EST, Start Date: 11/22/19 Stop Date: 02/20/20 Status: Ordered Daliresp 500 mcg oral tablet See Instructions, 1 tablet By Mouth Daily, # 30 each, 6 Refills, Maintenance, 08/16/19 15:51:00 EDT, [place], [place] -, 163, cm, 07/11/19 13:24:00 EST, [...] Maintenance, 08/15/2014:51:00 EDT, Route to Pharmacy Electronically, [place], [place] -, 163, cm, 07/11/19 13:24:00 EST, [...] Gm, 5 Refills, Maintenance, 08/16/19 15:53:00 EDT, [place], [place] -, 1 sprays Nares, Both 2 times a day, 163, cm, 07/11/19 13:24:00 EST, Height, 114, kg, 04/19/18 23:58:00 EST, Dry Weight Start Date: 08/16/19 Status: Ordered furosemide 40 mg oral tablet 40 mg, 1, tablet, By Mouth, 2 times a day, # 60 tablet, Refills 5, Tot. Refills 5, Maintenance, 08/16/19 15:51:00 EDT, Route to Pharmacy Electronically, [place], [place] -, 163, cm, 07/11/19 13:24:00 EST, Height, 114, kg, 04/19/18 23:... Start Date: 08/16/19 Stop Date: 02/12/20 Status: Ordered guaiFENesin 100 mg/5 mL oral liquid 20 mL = 400 mg, By Mouth, Every 6 hours, PRN Cough and Congestion, with fluids, # 240 mL, 0 Refills, Maintenance, 09/28/19 14:14:00 EDT, [place], [place] -, 163, cm, 07/11/19 13:24:00 EST, [...] 12/05/19 8:40:00 EDT, Route to Pharmacy Electronically, [place], [place] -, 163, cm, 07/11/19 13:24:... Start [...] 30 tablet, 5 Refills, 11/13/19 14:32:00 EDT, [place], [place] -, 163, cm, 07/11/19 13:24:00 EST, [...] 09/28/19 14:13:00 EDT, Route to Pharmacy Electronically, [facility] [place], [place] -, 163, cm, 07/11/2012:24:00 EST, Height, [...] EDT, Compound Start Date: 10/04/19 Status: Ordered portable oxygen concentrator portable oxygen concentrator, See Instructions, # 1 each, Refills 0, Tot. Refills 0, Maintenance, Dx severe COPD. Codes J44.9, R09.02, 12/05/19 11:16:00 EDT, Compound Start Date: 12/05/19 Status: Ordered potassium chloride 20 mEq oral tablet, extended release 1 tablet = 20 mEq, By Mouth, Daily, # 30 tablet, 5 Refills, Maintenance, 08/16/19 15:50:00 EDT, [place], [place] -, 163, cm, 07/11/19 13:24:00 EST, Height, 114, kg, 04/19/18 23:58:00EST, Dry Weight Start Date: 08/16/19 Status: Ordered pregabalin 100 mg oral capsule 1 capsule = 100 mg, By Mouth, 3 times a day, dose increase to 100mg tid 12/05/2019., # 90 capsule, 2Refills, Maintenance, 12/05/19 8:38:00 EDT, [place], [place] -, 163, cm, 07/11/19 13:24:00 EST, Height, 114, kg, 04/19/18 23:58:00 EST... Start Date: 12/05/19 Status: Ordered pulse dose evaluation pulse dose evaluation, See Instructions, # 1 each, Refills 0, Tot. Refills 0, Maintenance, Pulse Dose Evaluation dx: copd,chf 150.9, j44.9, 12/07/19 13:52:00 EDT, Supply Start Date: 12/07/19 Status: Ordered traZODone 150 mg oral tablet 3 tablet = 450 mg, By Mouth, Daily at bedtime, Please d/c order for 300mg qhs. Correct dose 450mg qhs., # 90 tablet, 5 Refills, Maintenance, 08/16/19 15:52:00 EDT, [place], [place] -, 163, cm, 07/11/19 13:24:00 EST, Height, 114, kg, 1... Start Date: 08/16/19 Status: Ordered triamcinolone 0.025% topical cream 1 applicator, Topically, 3 times a day, PRN eczema, # 80 Gm, 2 Refills, Maintenance, 08/16/19 15:48:00 EDT, [place], [place] -, 1 applicator Topically 3 times a day,PRN:eczema, 163, cm, 07/11/19 13:24:00 EST, Height, 114, kg, 04/19/18... Start Date: 08/16/19 Status: Ordered Ventolin HFA 108 mcg/inh inhalation aerosol with adapter 2 puffs, Inhalation, 4 times a day, PRN Wheezing/Shortness of Breath, 90 days supply, # 1 each, 5 Refills, Maintenance, 08/16/19 15:53:00 EDT, [place], [place] -, 163, cm, 07/11/19 13:24:00 EST, Height, 114, kg, 04/19/18 23:58:00 EST,... Start Date: 08/16/19 Status: Ordered verapamil 120 mg oral tablet 1 tablet = 120 mg, By Mouth, 3 times a day, dose increase 120 tid 09/28/2019., # 90 tablet, 5 Refills, Maintenance, 11/13/19 14:41:00 EDT, [place], [place] -, 163, cm, 07/11/19 13:24:00 EST, Height, 114, kg, 04/19/18 23:58:00 EST, Dry... Start Date: 11/13/19 Status: Ordered Vitamin D3 1000 intl units oral tablet 1 tablet = 1,000 International_Units, By Mouth, Daily, # 90 tablet, 3 Refills, Maintenance, 08/16/19 15:51:00 EDT, [place], [place] -, 163, cm, 07/11/19 13:24:00 EST, [...] Response Smoking Status Current every day rut [place]; Type: Cigarettes; Interested in cessation: No; Tobacco use times per day: 15 a day; Started at age: 9; entered on: 02/06/14 Sex Female
--- OUTSIDE RECORDS SUMMARY | 2023-09-15 07:39 | XMS_ITS | Continuity of Care Document ---
Author Organization [facility] Address [address] [place] [address]- Care Team Providers Care Jet Handler Name Role Phone Kwame Bolton Primary Care Physician [facility]): 08/09/23 - 09/08/23 [facility] [address], [place] [phone] Allergies, Adverse Reactions, Alerts Substance Reaction Severity [...] vaccine, inactivated 5 02/26/09 Gi cecile SARS-CoV-2(COVID-19)mRNA-LNP vac([id number]) 02/25/23 Recorded SARS-CoV-2 (COVID-19) mRNA-1273 vaccine 6 [...] [facility] 2Result Comment: [02/22/2017] [facility] [id number] 3Admin Note: flulaval vis given vis date 11/16/2011 4Admin Note: VIS GIVEN VIS DATE 12/24/2009 5Admin Note: VIS GIVEN 12/25/08 nigerien 6Result Comment: new booster 7Result Comment: dose 2 8Result Comment: dose 1 9Result Comment: Received at [facility] on [facility] in [place] 10Admin Note: vis given 11Admin Note: vis given 12Result Comment: [id number] exp 06/2009 13Admin Note: vis given Medications [...] EST, Compound Start Date: 07/12/19 Status: Ordered Shandon Saline 0.65% nasal gel 1 sprays, Nares, Both, 4 times a day, # 22.5 Gm, 1 Refills, Maintenance, 08/20/23 15:42:00 EDT, [facility] [id number], Partial fill upon patient request if the prescription is for a schedule II opioid drug., 1 sprays Nares, Kilo... Start Date: 08/20/23 Status: Ordered B-Complex with B-12 oral tablet See Instructions, TAKE 1 TABLET BY MOUTH ONCE DAILY WITH FOOD, # 90 tablet, 1 Refills, Maintenance,05/28/23 17:52:00 EST, [facility] [id number], 90, TAKE 1 TABLET BY MOUTH ONCE DAILY WITH FOOD, 163, cm, 05/06/23 8:47:00 EST,... Start Date: 05/28/23 Status: Ordered Biotene Moisturizing Mouth oral spray 1 sprays, By Mouth, 6 times a day, BIOTENE NAME BRAND MAY BE REQUIRED, # 240 mL, 5 Refills, Maintenance, 11/18/22 8:47:00 EDT, [facility] [id number], Partial fill upon patient request if the prescription is for a schedule II o... Start Date: 11/18/22 Status: Ordered Cane See Instructions, # 1 each, Maintenance, DX LEFT KNEE PAIN /ACL TEAR /ARTHRITIS DX CODE M25.562 HT 163 CM WT 123 KG DURATION -LIETIME PATIENTS CANE ASHUTOSH, 01/06/19 8:36:49 EDT, Compound Start Date: 01/06/19 Status: Ordered Comfort EZ Pen [place] 32 gauge x 5/32 Comfort EZ Pen [place] 32 gauge x 5/32 , See [...] each, 5 Refills, Maintenance, 03/17/23 9:55:00 EDT, [facility] [id number], Partial fill upon patient request if the prescription is for a schedule II... Start Date: 03/17/23 Status: Ordered docusate sodium 100 mg oral capsule 1 capsule, By Mouth, 2 times a day, # 60 each, 5 Refills, Maintenance, 05/14/23 10:27:00 EST, [facility], 163, cm, 05/06/23 8:47:00 EST, Height, 122, kg, 05/02/22 15:20:00 EST, Dry Weight Start Date: 05/14/23 Status: Ordered Ear Pain MD 4% otic liquid 2 drops, Ears, Both, 3 times a day, PRN Pain , Moderate, # 12.5 mL, 0 Refills, Maintenance, 01/04/23 21:24:00 EDT, [facility] [id number], Partial fill upon patient request ifthe prescription [...] tablet, 5 Refills, Maintenance, 05/27/23 18:43:00 EST, [facility], 163, cm, 05/06/23 8:47:00 EST, Height, 122, kg, 05/02/22 15:20:00 EST, Dry Weight Start Date: 05/27/23 Status: Ordered fluticasone 50 mcg/inh nasal spray 1 sprays, Nares, Both, Daily, # 16 Gm, 2 Refills, Maintenance, 07/13/23 18:31:00 EST, [place], [place] - [id number], Partial fill upon patient request if the prescription is for a schedule II opioid drug., 1 sprays Nares, Both Daily,... Start Date: 07/13/23 Status: Ordered furosemide 40 mg oral tablet 1, tablet, By Mouth, 2 times a day, # 60 tablet, Refills 5, Maintenance, 04/13/23 13:49:00 EST, Route to Pharmacy Electronically, [facility], 163, cm, 04/12/23 8:10:00 EST, Height, [...] 08/09/23 13:18:00 EDT, Route to Pharmacy Electronically, [facility], 163, cm, 05/06/23 8:47:00 EST, Height, 122, kg, 05/02/22 15:20:00 EST, Dry Weight Start Date: 08/09/23 Status: Ordered Mag-G 500 mg oral tablet 0.5 tablet, By Mouth, 2 times a day, # 30 tablet, 2 Refills, Maintenance, 02/15/23 18:46:00 EDT, [facility], 163, cm, 01/20/23 8:13:00 EDT, Height, 122, kg, 05/02/22 15:20:00 EST, Dry Weight Start Date: 02/15/23 Status: Ordered magnesium gluconate 250 mg oral tablet 1 tablet = 250 mg, By Mouth, 2 times a day, # 60 tablet, 2 Refills, Maintenance, 09/06/23 8:23:00 EDT, [facility] [id number], Partial fill upon patient request if the prescription is for a schedule II opioid drug., 1 tablet By... Start Date: 09/06/23 Status: Ordered MiraLax oral powder for reconstitution = 17 Gm, By Mouth, Daily, PRN Constipation, dissolve in 4 to 8 oz of beverage, # 30 each, 5 Refills, Maintenance, 09/06/23 8:24:00 EDT, [facility] [id number], Partial fill upon patient request if the prescription is for a sche... Start Date: 09/06/23 Status: Ordered Nicotrol Inhaler 10 mg inhalation device See Instructions, To use with nicotine cartridges in place of cigarettes, # 3 each, 0 Refills, Maintenance, 08/31/22 9:43:00 EDT, [facility] [id number], Partial fill upon patient request if the prescription is for a schedule I... Start Date: 08/31/22 Status: Ordered NO RINSE SHAMPOO CAP NO RINSE SHAMPOO CAP, See Instructions, # 15 each, Refills 11, Tot. Refills 11, Maintenance, DX: CHF WEAKNESS 150.9 R53.1, 11/28/18 9:21:33 EDT, Compound Start Date: 11/28/18 Status: Ordered NuLYTELY Lemon [place] oral powder for reconstitution See Instructions, Stay [...] 09/06/23 8:27:00 EDT, Route to Pharmacy Electronically, [facility] [place], [place] -... Start Date: 09/06/23 Stop Date: 10/04/23 Status: Ordered Ozempic 2 mg/3 mL (0.25 mg or 0.5 mg dose) subcutaneous solution See Instructions, INJECT 0.5mg UNDER THE SKIN EVERY WEEK, # 3 mL, 5 Refills, Maintenance, 04/05/23 18:38:00 EST, [facility], 163, cm, 03/15/23 8:28:00 EDT, Height, [...] Start Date: 01/31/20 Status: Ordered Potassium Chloride (Qfp-Lcqb-Izf M20) 20 mEq oral tablet, extended release 1 tablet, By Mouth, Daily, # 30 tablet, 2 Refills, Maintenance, 08/13/23 15:40:00 EDT, [facility] [id number], 163, cm, 08/13/23 13:24:00 EDT, Height, 122, kg, 05/02/22 15:20:00 EST, Dry Weight Start Date: 08/13/23 Status: Ordered pulse dose evaluation pulse dose evaluation, See Instructions, # 1 each, Refills 0, Tot. 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 Start Date: 08/18/23 Status: Ordered Roflumilast 500 mcg oral tablet 1 tablet, By Mouth, Daily, # 30 tablet, 2 Refills, Maintenance, 08/13/23 15:40:00 EDT, [place], [place] - [id number], 163, cm, 08/13/23 13:24:00 EDT, Height, 122, [...] tablet, 5 Refills, Maintenance, 07/13/23 18:30:00 EST, [facility] [id number], please dispense in bubble pack. dose increase... Start Date: 07/13/23 Status: Ordered square orthopedic pillow with central square depression and surrounding bolster square orthopedic pillow with central square depression and surrounding bolster, See Instructions, # 1 each, Refills 0, Tot. Refills 0, Maintenance, Product number [id number] Dx codes: M54.2 Duration: lifetime, 09/07/23 8:13:00 EDT, Supply Start Date: 09/07/23 Status: Ordered traZODone 150 mg oral tablet 3 tablet, By Mouth, Daily at bedtime, # 270 tablet, 6 Refills, 10/26/22 10:18:00 EDT, [facility] [id number], 163, cm, 10/14/22 8:43:00 EDT, Height, 122, [...] Status: Ordered value series power lift chair [id number] value series power lift chair [id number], See Instructions, # 1 each, Refills 0, [...] Pelvic pain Confirmed Active BHN/CCA/CP-Jo Ann Harvey [phone]/[facility] active care coordination Confirmed Active BHN/CCA/LCC Lisa Gutierrez [phone]/[facility] active care coordination Confirmed Active Severe obesity [...] Care Team Personnel Name: Kwame Bolton Position: [facility] PCO Associate Professional Member Role: PCP Address: Address: [address] [place] [address] [place] [address]- Name: Perri Perry RN Position: [facility] RN Member Role: Primary Care Nurse Name: Alicia Vallecillo RN Position: [facility] RN Member Role: Primary Care Nurse Name: Андрей Boo RN Position: [facility] Outreach Member Role: Primary Care Nurse Name: Maureen Smith RN Position: [facility] RN Member Role: Primary Care Nurse Name: Sultana Broussard RN Position: [facility] RN Member Role: Primary Care Nurse Name: Abigail Dior RN Position: [facility] RN Member Role: Primary Care Nurse Name: Ivette Carter RN Position: [facility] RN Member Role: Primary Care Nurse Name: Rukhsana Matthews RN Position: [facility] Hospital Congressional Assistant Member Role: Primary Care Nurse Care Team Related Persons Name: TANA MENDOZA Address: home UNKNOWN CALL [facility] [place] [address] Name: MARIA TERESA UMAÑA Address: home [address] [place] [address] Name: ANG GAFFNEY Address: home [address] [place] [address] Name: CHILO AHMADI Address: home [address] [address]
--- OUTSIDE RECORDS SUMMARY | 2023-09-15 07:40 | XMS_ITS | Continuity of Care Document ---
Author Organization [facility] Address [address] [place] [address]- Care Team Providers Care Tongue Presser Name Role Phone Kwame Bolton Primary Care Physician [facility]): [facility]22 - 01/15/23 [facility] [address] [address] Attending Physician: AdmDarryl melo Admitting Physician: AdmtrDarryl Referring Physician: Admtr, Ar8 Allergies, Adverse Reactions, [...] 3Result Comment: dose 1 4Result Comment: [02/22/2017] [facility] [id number] 5Admin Note: flulaval vis given vis date 11/16/2011 6Admin Note: VIS GIVEN VIS DATE 12/24/2009 7Admin Note: VIS GIVEN 12/25/08 danish 8Result Comment: Received at [facility] on [facility] in [employer] 9Admin Note: vis given 10Admin Note: vis given 11Result Comment: [id number] exp 06/2009 12Admin Note: vis given Medications [...] each, 0 Refills, Maintenance, 01/05/23 14:03:00 EDT, [facility] [id number], Partial fill upon patient request if the prescription is for a schedule II opioid drug., 163, c... Start Date: 01/05/23 Status: Ordered B-Complex with B-12 oral tablet See Instructions, TAKE 1 TABLET BY MOUTH ONCE DAILY WITH FOOD, # 90 tablet, 1 Refills, Maintenance,11/18/22 10:57:00 EDT, [facility], 90, TAKE 1 TABLET BY MOUTH ONCE DAILY WITH FOOD, 163, cm, 11/18/22 8:31:00 EDT, Height, 122, kg, 05/02/22 15:20... Start Date: 11/18/22 Status: Ordered Biotene Moisturizing Mouth oral spray 1 sprays, By Mouth, 6 times a day, BIOTENE NAME BRAND MAY BE REQUIRED, # 240 mL, 5 Refills, Maintenance, 11/18/22 8:47:00 EDT, [place], [place] - [id number], Partial fill upon patient request if the prescription is for a schedule II o... Start Date: 11/18/22 Status: Ordered Cane See Instructions, # 1 each, Maintenance, DX LEFT KNEE PAIN /ACL TEAR /ARTHRITIS DX CODE M25.562 HT 163 CM WT 123 KG DURATION -LIETIME PATIENTS CANDarryl ISAIAHLUANNE, 01/06/19 8:36:49 EDT, Compound Start Date: 01/06/19 Status: Ordered Comfort EZ Pen [place] 32 gauge x 5/32 Comfort EZ Pen [place] 32 gauge x 5/32 , See Instructions, # 50 Unknown, 11 Refills, USE DAILY WITHvictoza injection, 163, cm, 03/25/21 9:16:00 EST, Height Start Date: 04/01/21 Status: Ordered Comfort EZ Pen [place] 32 gauge x 5/32 Comfort EZ Pen [place] 32 gauge x 5/32 , See Instructions, # 50 Unknown, 0 Refills, USE DAILY WITH victoza injection, 163, cm, 12/18/20 9:01:00 EDT, Height Start Date: 02/05/21 Status: Ordered Comfort EZ Pen [place] 32 gauge x 5/32 Comfort EZ Pen [place] 32 gauge x , See Instructions, # 50 Unknown, 11 [...] [facility] [id number], docusate dosing increase to bid 11/18/22., 163, cm, 11/18/22 8:3... Start Date: 11/18/22 Status: Ordered Ear Pain MD 4% otic liquid 2 drops, Ears, Both, 3 times a day, PRN Pain , Moderate, # 12.5 mL, 0 Refills, Maintenance, 01/04/23 21:24:00 EDT, [facility] [id number], Partial fill upon patient request ifthe prescription [...] tablet, 5 Refills, Maintenance, 11/18/22 10:57:00 EDT, [facility], 163, cm, 11/18/22 8:31:00 EDT, Height, 122, kg, 05/02/22 15:20:00 EST, Dry Weight Start Date: 11/18/22 Status: Ordered fluticasone 50 mcg/inh nasal spray 1 sprays, Nares, Both, Daily, # 16 Gm, 2 Refills, Maintenance, 12/29/22 17:51:00 EDT, [facility] [id number], Partial fill upon patient request if the prescription is for a schedule II opioid drug., 1 sprays Nares, Both Daily,... Start Date: 12/29/22 Status: Ordered furosemide 40 mg oral tablet 1, tablet, By Mouth, 2 times a day, # 60 tablet, Refills 5, Maintenance, 10/21/22 11:08:00 EDT, Route to Pharmacy Electronically, [facility], 163, cm, 10/14/22 8:43:00 EDT, [...] 11/18/22 8:47:00 EDT, Route to Pharmacy Electronically, [facility] [id number], 16... Start Date: 11/18/22 Status: Ordered INCONCTINENCE [...] 07/23/22 10:02:00 EST, Route to Pharmacy Electronically, [facility], 164, cm, 07/21/22 8:59:00 EST, Height, 122, kg, 05/02/22 15:20:00 EST, Dry Weight Start Date: 07/23/22 Status: Ordered magnesium gluconate 250 mg oral tablet 1 tablet = 250 mg, By Mouth, 2 times a day, # 60 tablet, 2 Refills, Maintenance, 11/18/22 16:58:00 EDT, [place], [place] - [id number], Partial fill upon patient request if the prescription is for a schedule II opioid drug., 1 tablet B... Start Date: 11/18/22 Status: Ordered Nicotrol Inhaler 10 mg inhalation device See Instructions, To use with nicotine cartridges in place of cigarettes, # 3 each, 0 Refills, Maintenance, 08/31/22 9:43:00 EDT, [facility] [id number], Partial fill upon patient request if the [...] each, 5 Refills, Maintenance, 11/18/22 8:46:00 EDT, [facility] [id number], dose increase to 0.5mg per week 11/18/22., [...] Start Date: 01/31/20 Status: Ordered Potassium Chloride (Qsg-Cvdc-Ksg M20) 20 mEq oral tablet, extended release [...] tablet, 5 Refills, Maintenance, 08/18/22 11:22:00 EDT, [facility] [id number], please dispense in bubble pack. dose increase... Start Date: 08/18/22 Status: Ordered square orthopedic pillow with central square depression and surrounding bolster square orthopedic pillow with central square depression and surrounding bolster, See Instructions, # 1 each, Refills 0, Tot. Refills 0, Maintenance, Product number [id number] Dx codes: M54.2 Duration: lifetime, 07/21/22 14:25:00 EST, Supply Start Date: 07/21/22 Status: Ordered traZODone 150 mg oral tablet 3 tablet, By Mouth, Daily at bedtime, # 270 tablet, 6 Refills, 10/26/22 10:18:00 EDT, [facility] [id number], 163, cm, 10/14/22 8:43:00 EDT, Height, 122, kg, 05/02/22 15:20:00EST, Dry Weight Start Date: 10/26/22 Status: Ordered Trelegy Ellipta 200 mcg-62.5 mcg-25 mcg/inh inhalation powder 1 puffs, Inhalation, Daily, at the same time every day, # 9 each, 3 Refills, Maintenance, 08/31/22 9:41:00 EDT, Powder, [facility] [id number], Partial fill upon patient request if the prescription is for a schedule II opioid d... Start Date: 08/31/22 Status: Ordered value series power lift chair [id number] value series power lift chair [id number], See Instructions, # 1 each, Refills 0, Tot. Refills 0, Maintenance, Diagnosis codes: G89.29, M19.90, J44.9, Z74.09, 01/30/20 9:31:00 EDT, Supply Start Date: 01/30/20 Status: Ordered Ventolin HFA 108 mcg/inh inhalation aerosol with adapter 2 puffs, Inhalation, 4 times a day, PRN Wheezing/Shortness of Breath, 90 days supply, # 3 each, 1 Refills, Maintenance, 10/21/22 11:03:00 EDT, [facility] - [place], [place] - [id number], 163, cm,10/14/22 8:43:00 EDT, Height, 122, kg, [...] 4, 5 Confirmed Active BHN/CCA/CP-Jo Ann Harvey [phone]/Health shelter active care coordination Confirmed Active Severe obesity [...] Care Team Personnel Name: Kwame Bolton Position: [facility] PCO Associate Professional Member Role: PCP Address: Address: [address] [place] [address] [place] [address]- Name: Perri Perry RN Position: [facility] RN Member Role: Primary Care Nurse Name: Alicia Vallecillo RN Position: [facility] RN Member Role: Primary Care Nurse Name: Maureen Smith RN Position: [facility] RN Member Role: Primary Care Nurse Name: Sultana Broussard RN Position: [facility] RN Member Role: Primary Care Nurse Name: Abigail Dior RN Position: [facility] RN Member Role: Primary Care Nurse Name: Ivette Carter RN Position: [facility] RN Member Role: Primary Care Nurse Name: Rukhsana Matthews RN Position: [facility] Buyer Intern Member Role: Primary Care Nurse Care Team Related Persons Name: TANA MENDOZA Address: [place] [address] Name: MARIA TERESA UMAÑA Address: home [address] [place] [address] Name: ANG GAFFNEY Address: home [address] [place] [address] Name: CHILO AHMADI Address: home [address] [address]
--- OUTSIDE RECORDS SUMMARY | 2023-09-15 07:40 | XMS_ITS | Continuity of Care Document ---
Author Organization [facility] Address [address] [facility], [address] Floor, [address] [place] [address]- Care Team Providers Care Buggy Driver Name Role Phone Kwame Bolton Primary Care Physician [phone] [facility]counter [facility] Date(s[facility] 08/12/20 - 09/11/20 [facility] [address], [address], [address] [place] [address]- Allergies, Adverse Reactions, Alerts Substance Reaction Severity [...] 9 02/26/09 Gi cecile tetanus-diphtheria toxoids (Td) 5/14/19 Given pneumococcal 23-valent vaccine 10 01/03/18 Given pneumococcal 13-valent vaccine 02/10/16 Given influ virus vac, H1N1, inactive(oldterm) 11 05/17/09 Given Tet/Diphth/Acel, Pertussis (oldterm) 12 05/30/08 G iven Pneumococcal Poly (PPV23) (oldterm) 08/08/06 Given Pneumococcal Vaccine (oldterm) 08/08/06 Given 1Result Comment: dose 2 2Result Comment: dose 1 3Result Comment: Received at [facility] on [facility] in [place] 4Admin Note: vis given 5Admin Note: vis given 6Result Comment: [02/22/2017] [facility] [id number] 7Admin Note: flulaval vis given vis date 11/16/2011 8Admin Note: VIS GIVEN VIS DATE 12/24/2009 9Admin Note: VIS GIVEN 12/25/08 chinese 10Result Comment: [01/03/2018 Uncharted] ERROR NOT GIVEN 11Result Comment: [id number] exp 06/2009 12Admin Note: vis given Medications [...] each, 5 Refills, Maintenance, 06/11/20 11:38:00 EST, [facility] - [place], [place] - [id number], 1 sprays By Mouth 6 times a day,Instr:please dispense 2 bottles per month... Start Date: 06/11/20 Status: Ordered Breo Ellipta 200 mcg-25 mcg/inh inhalation powder See Instructions, INHALE 1 PUFF BY MOUTH INTO THE lungs DAILY. rinse mouth and throat after use, # 60 Unknown, 11 Refills, 03/27/20 10:56:00 EST, [place], [place] - [id number], 30, INHALE 1 PUFF BY MOUTH INTO [...] tablet, 0 Refills, Acute, 09/11/20 11:03:00 EDT, [facility], 163, cm, 08/27/20 10:39:00 EDT, Height Start Date: 09/11/20 Status: Ordered clonazePAM 0.5 mg oral tablet 2 tablet = 1 mg, By Mouth, 2 times a day, # 120 tablet, 2 Refills, Maintenance, 07/09/20 16:30:00 EST, [place], [place] - [id number], 163, cm, 07/08/20 9:27:00 EST, Height Start Date: 07/09/20 Stop Date: 10/07/20 Status: Ordered Daliresp 500 mcg oral tablet See Instructions, TAKE ONE TABLET BY MOUTH DAILY, # 30 tablet, 6 Refills, Maintenance, [facility], 163, cm, 03/05/20 13:58:00 EDT, [...] 12/15/19 10:10:00 EDT, Route to Pharmacy Electronically, [facility] [id number], 163, cm, 07/11/19 13:24:00 EST, Height, 114, kg... Start Date: 12/15/19 Status: Ordered docusate sodium 100 mg oral capsule See Instructions, TAKE ONE CAPSULE BY MOUTH 2 (two) times a day, # 60 capsule, 5 Refills, 03/27/20 10:56:00 EST, [facility] [id number], 163, cm, 03/05/20 13:58:00 EDT, Height, 114, [...] Gm, 5 Refills, Maintenance, 08/16/19 15:53:00 EDT, [place], [place] -, 1 sprays Nares, Both 2 times a day, 163, cm, 07/11/19 13:24:00 EST, Height, 114, kg, 04/19/18 23:58:00 EST, Dry Weight Start Date: 08/16/19 Status: Ordered furosemide 40 mg oral tablet 40 mg, 1, tablet, By Mouth, 2 times a day, # 60 tablet, Refills 5, Tot. Refills 5, Maintenance, 08/05/20 13:27:00 EDT, Route to Pharmacy Electronically, [facility] [id number], 163, cm, 07/31/20 13:11:00 EDT, Height Start [...] 05/13/20 8:59:00 EST, Route to Pharmacy Electronically, [facility], 163, cm, 03/05/20 13:58:00 EDT, Height [...] 01/18/20 15:46:00 EDT, [id number], 163, cm, 07/11/19 13:24:00 EST, Height, [...] Refills, Maintenance, 09/11/20 6:19:00 EDT, CR Capsule, [facility] - [place], [place] - [id number], Partial fill upon patient request if the [...] tablet, Refills 0, Tot. Refills 0, Maintenance, 09/11/20 11:03:00 EDT, Route to Pharmacy Electronically, [facility], 163, cm, 08/27/20 10:39:00 EDT, Height Start Date: 09/11/20 Status: Ordered portable oxygen concentrator portable oxygen concentrator, See Instructions, # 1 each, Refills 0, Tot. Refills 0, Maintenance, Dx severe COPD. Codes J44.9, R09.02, 01/31/20 16:26:00 EDT, Compound Start Date: 01/31/20 Status: Ordered potassium chloride 20 mEq oral tablet, extended release 1 tablet, By Mouth, Daily, # 30 tablet, 5 Refills, Maintenance, 05/13/20 8:59:00 EST, [facility], 163, cm, 03/05/20 13:58:00 EDT, Height Start [...] each, 0 Refills, Maintenance, 08/29/20 19:11:00 EDT, [facility] [id number], Partial fill upon patient request if the prescription... Start Date: 08/29/20 Status: Ordered Shingrix intramuscular injection = 0.5 mL, Intramuscular, Once, repeat dose in 2 to 6 months, # 2 each, 0 Refills, Soft Stop, 01/17/20 11:40:00 EDT, Powder, [facility]/pharmacy #[id number], 0.5 mL Intramuscular Once,Instr:repeat dose in 2 to 6 months, 163, cm, 07/11/19 13:24:00 EST, Height, 114,... Start Date: 01/17/20 Status: Ordered traZODone 150 mg oral tablet 3 tablet = 450 mg, By Mouth, Daily at bedtime, Please d/c order for 300mg qhs. Correct dose 450mg qhs., # 90 tablet, 5 Refills, Maintenance, 03/27/20 10:57:00 EST, [id number], 163, cm, 03/05/20 13:58:00 EDT, Height,... Start Date: 03/27/20 Status: Ordered triamcinolone 0.025% topical cream 1 applicator, Topically, 3 times a day, PRN eczema, # 80 Gm, 2 Refills, Maintenance, 08/16/19 15:48:00 EDT, [place], [place] -, 1 applicator Topically 3 times a day,PRN:eczema, 163, cm, 07/11/19 13:24:00 EST, Height, 114, kg, 04/19/18... Start Date: 08/16/19 Status: Ordered value series power lift chair [id number] value series power lift chair [id number], See Instructions, # 1 each, Refills 0, Tot. Refills 0, Maintenance, Diagnosis codes: G89.29, M19.90, J44.9, Z74.09, 01/30/20 9:31:00 EDT, Supply Start Date: 01/30/20 Status: Ordered Ventolin HFA 108 mcg/inh inhalation aerosol with adapter 2 puffs, Inhalation, 4 times a day, PRN Wheezing/Shortness of Breath, 90 days supply, # 1 each, 5 Refills, Maintenance, 04/15/20 17:48:00 EST, [place], [place] - [id number], 163, cm,03/05/20 13:58:00 EDT, Height, 114, kg, 04/19/18 23... Start Date: 04/15/20 Status: Ordered verapamil 120 mg oral tablet 1 tablet, By Mouth, 3 times a day, home delivery please., # 90 tablet, 5 Refills, Maintenance, 05/21/20 11:21:00 EST, [place], [place] - [id number], 163, cm, 03/05/20 13:58:00 EDT, Height Start Date: 05/21/20 Status: Ordered Vitamin D3 1000 intl units oral tablet 1 tablet = 1,000 International_Units, By Mouth, Daily, # 90 tablet, 1 Refills, Maintenance, 08/10/20 15:51:00 EDT, [place], [place] - [id number], 163, cm, 07/31/20 13:11:00 EDT, Height Start [...] apnea(Confirmed) 4, 5 Active BHN/CCA/CP-[facility] Harvey [phone]/Health intermediate active care coordination(Confirmed) Active 1Health Care Agent: [...]
--- OUTSIDE RECORDS SUMMARY | 2023-09-15 07:40 | XMS_ITS | Continuity of Care Document ---
Author Organization [facility] Address [address] [facility], [address] d Floor, [address] [place] [address]- Care Team Providers Care Roll Skinner Name Role Phone Kwame Bolton Primary Care Physician [facility] 12[facility]19 - 01/04/20 [facility] [address] [place], [address] Floor, [address] [place] [address]- [facility] Allergies, Adverse Reactions, Alerts Substance Reaction [...] Vaccine (oldterm) 08/08/06 Given 1Result Comment: [02/22/2017] [facility] [id number] 2Admin Note: flulaval vis given vis date 11/16/2011 3Admin Note: VIS GIVEN VIS DATE 12/24/2009 4Admin Note: VIS GIVEN 12/25/08 [place] 5Result Comment: [01/03/2018 Uncharted] ERROR NOT GIVEN 6Result Comment: [id number] exp 06/2009 7Admin Note: vis given 8Admin [...] 08/16/19 15:54:00 EDT, Route to Pharmacy Electronically, [place], [place] -, 163, cm, 07/11/19 13:24:00 EST, [place]... Start Date: 08/16/19 Status: Ordered Biotene Moisturizing [...] 5 Refills, Maintenance, 08/16/19 15:52:00 EDT, Powder, [place], [place] -, 1 puffs Inhalation Daily,[facility], 163, cm, 07/11/19 13:24:... Start Date: 08/16/19 Status: Ordered Cane See Instructions, # 1 each, Maintenance, DX LEFT KNEE PAIN /ACL TEAR /ARTHRITIS DX CODE M25.562 HT 163 CM WT 123 KG DURATION -LIETIME PATIENTS CANDarryl BROLUANNE, 01/06/19 8:36:49 EDT, Compound Start Date: 01/06/19 Status: Ordered chantix 1mg tablet 1 tablet = 1 mg, By Mouth, 2 times a day, for 30 days, # 60 tablet, 5 Refills, Acute 02/12/20 15:52:00 EDT, 08/16/19 15:52:00 EDT, [place], [place] -, 163, cm, 07/11/19 13:24:00 EST,Height, 114, kg, 04/19/18 23:58:00 EST, Dry Weight Start Date: 08/16/19 Stop Date: 02/12/20 Status: Ordered clonazePAM 0.5 mg oral tablet 2 tablet = 1 mg, By Mouth, 2 times a day, dose increased to 2 tabs bid 05/2018, # 120 tablet, 2 Refills, Maintenance, 11/22/19 8:21:00 EDT, [place], [place] -, 163, cm, 07/11/19 13:24:00 EST, Height, 114, kg, 04/19/18 23:58:00 ESTDr... Start Date: 11/22/19 Stop Date: 02/20/20 Status: Ordered Daliresp 500 mcg oral tablet See Instructions, 1 tablet By Mouth Daily, # 30 each, 6 Refills, Maintenance, 08/16/19 15:51:00 EDT, [place], [place] -, 163, cm, 07/11/19 13:24:00 EST, [...] 12/15/19 10:10:00 EDT, Route to Pharmacy Electronically, [place], [place] - [id number], 163, cm, 07/11/19 13:24:00 EST, Height, 114, [...] Gm, 5 Refills, Maintenance, 08/16/19 15:53:00 EDT, [place], [place] -, 1 sprays Nares, Both 2 times a day, 163, cm, 07/11/19 13:24:00 EST, Height, 114, kg, 04/19/18 23:58:00 EST, Dry Weight Start Date: 08/16/19 Status: Ordered furosemide 40 mg oral tablet 40 mg, 1, tablet, By Mouth, 2 times a day, # 60 tablet, Refills 5, Tot. Refills 5, Maintenance, 08/16/19 15:51:00 EDT, Route to Pharmacy Electronically, [place], [place] -, 163, cm, 07/11/19 13:24:00 EST, Height, 114, kg, 04/19/18 23:... Start Date: 08/16/19 Stop Date: 02/12/20 Status: Ordered guaiFENesin 100 mg/5 mL oral liquid 20 mL = 400 mg, By Mouth, Every 6 hours, PRN Cough and Congestion, with fluids, # 240 mL, 0 Refills, Maintenance, 09/28/19 14:14:00 EDT, [place], [place] -, 163, cm, 07/11/19 13:24:00 EST, [...] 12/05/19 8:40:00 EDT, Route to Pharmacy Electronically, [place], [place] -, 163, cm, 07/11/19 13:24:... Start [...] 30 tablet, 5 Refills, 11/13/19 14:32:00 EDT, [place], [place] -, 163, cm, 07/11/19 13:24:00 EST, [...] 09/28/19 14:13:00 EDT, Route to Pharmacy Electronically, [facility] [place], [place] -, 163, cm, 07/11/2012:24:00 EST, Height, [...] EDT, Compound Start Date: 10/04/19 Status: Ordered OXcarbazepine 150 mg oral tablet 150 mg, 1, tablet, By Mouth, 2 times a day, # 60 tablet, Refills 2, Tot. Refills 2, Maintenance, 12/26/19 16:58:00 EDT, Route to Pharmacy Electronically, [place], [place] - [id number], 163, cm, 07/11/19 13:24:00 EST, Height, 114, [...] tablet, 5 Refills, Maintenance, 08/16/19 15:50:00 EDT, [place], [place] -, 163, cm, 07/11/19 13:24:00 EST, Height, 114, kg, 04/19/18 23:58:00EST, Dry Weight Start Date: 08/16/19 Status: Ordered pregabalin 100 mg oral capsule 1 capsule = 100 mg, By Mouth, 3 times a day, dose increase to 100mg tid 12/05/2019., # 90 capsule, 2Refills, Maintenance, 12/05/19 8:38:00 EDT, [place], [place] -, 163, cm, 07/11/19 13:24:00 EST, Height, 114, kg, 04/19/18 23:58:00 EST... Start Date: 12/05/19 Status: Ordered pregabalin 75 mg oral capsule 1 capsule = 75 mg, By Mouth, 3 times a day, dose decrease to 75mg tid 12/26/19, # 90 capsule, 0 Refills, Maintenance, 12/26/19 16:59:00 EDT, [place], [place] - [id number], 163, cm, 07/11/19 13:24:00 EST, Height, 114, kg, 04/19/18 23:58... Start Date: 12/26/19 Status: Ordered pulse dose evaluation pulse dose [...] tablet, 5 Refills, Maintenance, 08/16/19 15:52:00 EDT, [place], [place] -, 163, cm, 07/11/19 13:24:00 EST, Height, 114, kg, 1... Start Date: 08/16/19 Status: Ordered triamcinolone 0.025% topical cream 1 applicator, Topically, 3 times a day, PRN eczema, # 80 Gm, 2 Refills, Maintenance, 08/16/19 15:48:00 EDT, [place], [place] -, 1 applicator Topically 3 times a day,PRN:eczema, 163, cm, 07/11/19 13:24:00 EST, Height, 114, kg, 04/19/18... Start Date: 08/16/19 Status: Ordered Ventolin HFA 108 mcg/inh inhalation aerosol with adapter 2 puffs, Inhalation, 4 times a day, PRN Wheezing/Shortness of Breath, 90 days supply, # 1 each, 5 Refills, Maintenance, 08/16/19 15:53:00 EDT, [place], [place] -, 163, cm, 07/11/19 13:24:00 EST, Height, 114, kg, 04/19/18 23:58:00 EST,... Start Date: 08/16/19 Status: Ordered verapamil 120 mg oral tablet 1 tablet = 120 mg, By Mouth, 3 times a day, dose increase 120 tid 09/28/2019., # 90 tablet, 5 Refills, Maintenance, 11/13/19 14:41:00 EDT, [place], [place] -, 163, cm, 07/11/19 13:24:00 EST, Height, 114, kg, 04/19/18 23:58:00 EST, Dry... Start Date: 11/13/19 Status: Ordered Vitamin D3 1000 intl units oral tablet 1 tablet = 1,000 International_Units, By Mouth, Daily, # 90 tablet, 3 Refills, Maintenance, 08/16/19 15:51:00 EDT, [facility] - [place], [place] -, 163, cm, 07/11/19 13:24:00 EST, [...]
--- OUTSIDE RECORDS SUMMARY | 2023-09-15 07:40 | XMS_ITS | Continuity of Care Document ---
Author Organization [facility] Address [address] [place] [address]- Care Team Providers Care Bill Peddler Name Role Phone Kwame Bolton Primary Care Physician [facility] Date[facility]/18/21 - 12/18/21 [facility] [address] [place] [id number] Allergies, Adverse Reactions, Alerts Substance Reaction [...] Comment: dose 1 3Result Comment: Received at [facility] on [facility] in [place] 4Admin Note: vis given 5Admin Note: vis given 6Result Comment: [02/22/2017] [facility][note 3] [id number] 7Admin Note: flulaval vis given vis date 11/16/2011 8Admin Note: VIS GIVEN VIS DATE 12/24/2009 9Admin Note: VIS GIVEN 12/25/08 japanese 10Result Comment: [01/03/2018 Uncharted] ERROR NOT GIVEN 11Result Comment: [id number] exp 06/2009 12Admin Note: vis given Medications [...] mouth and throat after use, 163, cm, 08/01/21 12:50:00 EDT, Height Start Date: 09/15/21 Status: Ordered Cane See Instructions, # 1 each, Maintenance, DX LEFT KNEE PAIN /ACL TEAR /ARTHRITIS DX CODE M25.562 HT 163 CM WT 123 KG DURATION -LIETIME PATIENTS CANE BROKE, 01/06/19 8:36:49 EDT, Compound Start Date: 01/06/19 Status: Ordered Comfort EZ Pen Maribel 32 gauge x 5/32 Comfort EZ Pen Maribel 32 gauge x 5/32 , See Instructions, # 50 Unknown, 11 Refills, USE DAILY WITHvictoza injection, 163, cm, 03/25/21 9:16:00 EST, Height Start Date: 04/01/21 Status: Ordered Comfort EZ Pen Maribel 32 gauge x 5/32 Comfort EZ Pen Maribel 32 gauge x 5/32 , See Instructions, # 50 Unknown, 0 Refills, USE DAILY WITH victoza injection, 163, cm, 12/18/20 9:01:00 EDT, Height Start Date: 02/05/21 Status: Ordered D3 1000 intl units (25 mcg) oral tablet 1 tablet, By Mouth, Daily, # 30 tablet, 5 Refills, [facility], 163, cm, 07/09/21 8:06:00 EST, Height Start Date: 07/25/21 Status: Ordered Daliresp 500 mcg oral tablet 1 tablet, By Mouth, Daily, # 30 tablet, 6 Refills, [facility], 163, cm, 09/26/21 13:20:00 EDT,Height Start Date: 11/14/21 Status: Ordered docusate sodium 100 mg oral capsule 1 capsule, By Mouth, Daily, # 60 each, 5 Refills, Maintenance, 04/04/21 11:02:00 EST, [facility] [place], [place] - [id number], 163, cm, 03/25/21 9:16:00 EST, Height Start Date: 04/04/21 Status: Ordered Electric Neck Shawl Heating Pad [...] tablet, Refills 4, Route to Pharmacy Electronically, [facility], 163, cm, 09/26/21 13:20:00 EDT, Height Start Date: 11/14/21 Status: Ordered guaiFENesin 100 mg/5 mL oral liquid 20 mL = 400 mg, By Mouth, 2 times a day, for congestion, cough. with fluids, # 240 mL, 0 Refills, Maintenance, 04/14/21 8:42:00 EST, [place], [place] - [id number], Partial fill upon patient request if the [...] NEEDEDFOR SEVERE PAIN, Route to Pharmacy Electronically, [facility], 163, cm, 03/25/21 9:16:00 EST, [...] tablet, Refills 3, Tot. Refills 3, Maintenance, 09/26/21 13:31:00 EDT, Route to Pharmacy Electronically, [place], [place] - [id number], Partial fill upon patient request if the prescription is f... Start Date: 09/26/21 Status: Ordered Narcan 4 mg/0.1 mL nasal [...] Start Date: 01/31/20 Status: Ordered Potassium Chloride (Uct-Kuxo-Ywl M20) 20 mEq oral tablet, extended release 1 tablet, By Mouth, Daily, # 30 tablet, 6 Refills, [facility], 163, cm, 09/26/21 13:20:00 EDT,Height [...] Mouth, Daily, # 30 tablet, 3 Refills, [facility], 163, cm, 09/26/21 13:20:00 EDT,Height Start Date: 12/15/21 Status: Ordered square orthopedic pillow with central square depression and surrounding bolster square orthopedic pillow with central square depression and surrounding bolster, See Instructions, # 1 each, Refills 0, Tot. Refills 0, Maintenance, Product number [id number] Dx codes: M54.2 Duration: lifetime, 02/27/21 19:03:00 EDT, Supply Start Date: 02/27/21 Status: Ordered traZODone 150 mg oral tablet 3 tablet, By Mouth, Daily at bedtime, # 270 tablet, 6 Refills, [facility], 163, cm, 09/26/21 13:20:00 EDT, Height Start Date: 11/14/21 Status: Ordered value series power lift chair [id number] value series power lift chair [id number], See Instructions, # 1 each, Refills 0, Tot. Refills 0, Maintenance, Diagnosis codes: G89.29, M19.90, J44.9, Z74.09, 01/30/20 9:31:00 EDT, Supply Start Date: 01/30/20 Status: Ordered varenicline 1mg tablet 1 tablet, By Mouth, 2 times a day, # 56 tablet, 5 Refills, [facility], 163, cm, 07/09/21 8:06:00 EST, Height Start Date: 07/25/21 Status: Ordered Ventolin HFA 108 mcg/inh inhalation aerosol with adapter 2 puffs, Inhalation, 4 times a day, PRN Wheezing/Shortness of Breath, 90 days supply, # 1 each, 5 Refills, Maintenance, 10/07/20 6:45:00 EDT, [facility] - [place], [place] - [id number], 163, cm, 09/24/20 13:25:00 EDT, Height Start Date: 10/07/20 Status: Ordered Victoza 18 mg/3 mL subcutaneous solution = 1.2 mg, Subcutaneous Infusion, Daily, dose increase to 1.2mg qd 04/29/21., # 15 mL, 5 Refills, Maintenance, 04/29/21 8:26:00 [facility], [facility] [place], [place] - [id number], Partial fill upon patient request if the [...] apnea(Confirmed) 4, 5 Active BHN/CCA/CP-Jo Ann Harvey [phone]/Health nursing home active care coordination(Confirmed) Active Severe obesity(Confirmed) Active [...]
--- OUTSIDE RECORDS SUMMARY | 2023-09-15 07:40 | XMS_ITS | Continuity of Care Document ---
Author Organization [facility] Address [address] [place] [id number]- Care Team Providers Care Worm Grower Name Role Phone Kwame Bolton Primary Care Physician [facility] Date[facility] 09[facility]07[facility]22 - 01/15/23 [facility] [address] [place] [id number] Attending Physician: Brittney Ayala MD Admitting Physician: Brittney Ayala MD Referring Physician: Kwame Bolton Allergies, Adverse [...] influenza virus vaccine, inactivated 5 04/19/12 Gi eccile influenza virus vaccine, inactivated 6 03/11/10 Gi [...] 3Result Comment: dose 1 4Result Comment: [02/22/2017] [facility] [id number] 5Admin Note: flulaval vis given vis date 11/16/2011 6Admin Note: VIS GIVEN VIS DATE 12/24/2009 7Admin Note: VIS GIVEN 12/25/08 slovenian 8Result Comment: Received at [facility] on [facility] in [place] 9Admin Note: vis given 10Admin Note: vis given 11Result Comment: [id number] exp 06/2009 12Admin Note: vis given Medications [...] EST, Compound Start Date: 2/26/20 Status: Ordered Azithromycin 5 Day Dose Pack 250 mg oral tablet See Instructions, as directed on package labeling, # 6 each, 0 Refills, Maintenance, 01/05/23 14:03:00 EDT, [place], [place] - [id number], Partial fill upon patient request if the prescription is for a schedule II opioid drug., 163, c... Start Date: 01/05/23 Status: Ordered B-Complex with B-12 oral tablet See Instructions, TAKE 1 TABLET BY MOUTH ONCE DAILY WITH FOOD, # 90 tablet, 1 Refills, Maintenance,11/18/22 10:57:00 EDT, [facility], 90, TAKE 1 TABLET BY MOUTH ONCE DAILY WITH FOOD, 163, cm, 11/18/22 8:31:00 EDT, Height, 122, kg, 05/02/22 15:20... Start Date: 11/18/22 Status: Ordered Biotene Moisturizing Mouth oral spray 1 sprays, By Mouth, 6 times a day, BIOTENE NAME BRAND MAY BE REQUIRED, # 240 mL, 5 Refills, Maintenance, 11/18/22 8:47:00 EDT, [place], [place] - [id number], Partial fill upon patient request if the prescription is for a schedule II o... Start Date: 11/18/22 Status: Ordered Cane See Instructions, # 1 each, Maintenance, DX LEFT KNEE PAIN /ACL TEAR /ARTHRITIS DX CODE M25.562 HT 163 CM WT 123 KG DURATION -LIETIME PATIENTS VERA BOYKIN, 01/06/19 8:36:49 EDT, Compound Start Date: 01/06/19 Status: Ordered Comfort EZ Pen Calipatria 32 gauge x 5/32 Comfort EZ Pen Calipatria 32 gauge x 5/32 , See Instructions, # 50 Unknown, 11 Refills, USE DAILY WITHvictoza injection, 163, cm, 03/25/21 9:16:00 EST, Height Start Date: 04/01/21 Status: Ordered Comfort EZ Pen Calipatria 32 gauge x 5/32 Comfort EZ Pen Calipatria 32 gauge x 5/32 , See Instructions, # 50 Unknown, 0 Refills, USE DAILY WITH victoza injection, 163, cm, 12/18/20 9:01:00 EDT, Height Start Date: 02/05/21 Status: Ordered Comfort EZ Pen Calipatria 32 gauge x 5/32 Comfort EZ Pen Calipatria 32 gauge x 5/32 , See Instructions, [...] Refills, Maintenance, 11/18/22 8:49:00 EDT, [facility] [id number], docusate dosing increase to bid 11/18/22., 163, cm, 11/18/22 8:3... Start Date: 11/18/22 Status: Ordered Ear Pain MD 4% otic liquid 2 drops, Ears, Both, 3 times a day, PRN Pain , Moderate, # 12.5 mL, 0 Refills, Maintenance, 01/04/23 21:24:00 EDT, [facility] [id number], Partial fill upon patient request ifthe prescription [...] tablet, 5 Refills, Maintenance, 11/18/22 10:57:00 EDT, [facility], 163, cm, 11/18/22 8:31:00 EDT, Height, 122, kg, 05/02/22 15:20:00 EST, Dry Weight Start Date: 11/18/22 Status: Ordered fluticasone 50 mcg/inh nasal spray 1 sprays, Nares, Both, Daily, # 16 Gm, 2 Refills, Maintenance, 12/29/22 17:51:00 EDT, [facility] [id number], Partial fill upon patient request if the prescription is for a schedule II opioid drug., 1 sprays Nares, Both Daily,... Start Date: 12/29/22 Status: Ordered furosemide 40 mg oral tablet 1, tablet, By Mouth, 2 times a day, # 60 tablet, Refills 5, Maintenance, 10/21/22 11:08:00 EDT, Route to Pharmacy Electronically, [facility], 163, cm, 10/14/22 8:43:00 EDT, [...] 11/18/22 8:47:00 EDT, Route to Pharmacy Electronically, [facility] [id number], 16... Start Date: 11/18/22 Status: Ordered INCONCTINENCE [...] 07/23/22 10:02:00 EST, Route to Pharmacy Electronically, [facility], 164, cm, 07/21/22 8:59:00 EST, Height, 122, kg, 05/02/22 15:20:00 EST, Dry Weight Start Date: 07/23/22 Status: Ordered magnesium gluconate 250 mg oral tablet 1 tablet = 250 mg, By Mouth, 2 times a day, # 60 tablet, 2 Refills, Maintenance, 11/18/22 16:58:00 EDT, [facility] - [place], [place] - [id number], Partial fill upon patient request if the prescription is for a schedule II opioid drug., 1 tablet B... Start Date: 11/18/22 Status: Ordered Nicotrol Inhaler 10 mg inhalation device See Instructions, To use with nicotine cartridges in place of cigarettes, # 3 each, 0 Refills, Maintenance, 08/31/22 9:43:00 EDT, [facility] [id number], Partial fill upon patient request if the [...] each, 5 Refills, Maintenance, 11/18/22 8:46:00 EDT, [facility] [id number], dose increase to 0.5mg per week 11/18/22., [...] Start Date: 01/31/20 Status: Ordered Potassium Chloride (Rhr-Assf-Cza M20) 20 mEq oral tablet, extended release [...] tablet, 5 Refills, Maintenance, 08/18/22 11:22:00 EDT, [facility] [id number], please dispense in bubble pack. dose increase... Start Date: 08/18/22 Status: Ordered square orthopedic pillow with central square depression and surrounding bolster square orthopedic pillow with central square depression and surrounding bolster, See Instructions, # 1 each, Refills 0, Tot. Refills 0, Maintenance, Product number [id number] Dx codes: M54.2 Duration: lifetime, 07/21/22 14:25:00 EST, Supply Start Date: 07/21/22 Status: Ordered traZODone 150 mg oral tablet 3 tablet, By Mouth, Daily at bedtime, # 270 tablet, 6 Refills, 10/26/22 10:18:00 EDT, [facility] [id number], 163, cm, 10/14/22 8:43:00 EDT, Height, 122, kg, 05/02/22 15:20:00EST, Dry Weight Start Date: 10/26/22 Status: Ordered Trelegy Ellipta 200 mcg-62.5 mcg-25 mcg/inh inhalation powder 1 puffs, Inhalation, Daily, at the same time every day, # 9 each, 3 Refills, Maintenance, 08/31/22 9:41:00 EDT, Powder, [facility] [id number], Partial fill upon patient request if the prescription is for a schedule II opioid d... Start Date: 08/31/22 Status: Ordered value series power lift chair [id number] value series power lift chair [id number], See Instructions, # 1 each, Refills 0, Tot. Refills 0, Maintenance, Diagnosis codes: G89.29, M19.90, J44.9, Z74.09, 01/30/20 9:31:00 EDT, Supply Start Date: 01/30/20 Status: Ordered Ventolin HFA 108 mcg/inh inhalation aerosol with adapter 2 puffs, Inhalation, 4 times a day, PRN Wheezing/Shortness of Breath, 90 days supply, # 3 each, 1 Refills, Maintenance, 10/21/22 11:03:00 EDT, [facility] - [place], [place] - [id number], 163, cm,10/14/22 8:43:00 EDT, Height, 122, kg, [...] 4, 5 Confirmed Active BHN/CCA/CP-Jo Ann Harvey [phone]/Health skilled nursing active care coordination Confirmed Active [...] Associate Professional Member Role: PCP Address: Address: [address] [place] [address] [place] [address]- Name: Perri Perry RN Position: [facility] RN Member Role: Primary Care Nurse Name: Alicia Vallecillo RN Position: [facility] RN Member Role: Primary Care Nurse Name: Maureen Smith RN Position: [facility] RN Member Role: Primary Care Nurse Name: Sultana Broussard RN Position: [facility] RN Member Role: Primary Care Nurse Name: Abigail Dior RN Position: [facility] RN Member Role: Primary Care Nurse Name: Ivette Carter RN Position: [facility] RN Member Role: Primary Care Nurse Name: Rukhsana Matthews RN Position: [facility] Skating Rink Manager Member Role: Primary Care Nurse Care Team Related Persons Name: TANA MENDOZA Address: [place] [address] Name: MARIA TERESA UMAÑA Address: home [address] [place] [address] Name: ANG GAFFNEY Address: home [address] [place] [address] Name: CHILO AHMADI Address: home [address] [address]
--- OUTSIDE RECORDS SUMMARY | 2023-09-15 07:40 | XMS_ITS | Continuity of Care Document ---
Author Organization [facility] y Address [address] [place] [address]- Care Team Providers Care Assistant Engineer Name Role Phone Kwame Bolton Primary Care Physician [phone] [place] [facility] [place] 11/10/19 - 12/10/19 [facility] [address] [place] [address]- Attending Physician: Darryl Goodwin Admitting Physician: AdmDarryl melo Referring Physician: AdmtrDarryl Allergies, Adverse Reactions, Alerts Substance Reaction Severity [...] Vaccine (oldterm) 08/08/06 Given 1Result Comment: [02/22/2017] [facility] [id number] 2Admin Note: flulaval vis given vis date 11/16/2011 3Admin Note: VIS GIVEN VIS DATE 12/24/2009 4Admin Note: VIS GIVEN 12/25/08 yi 5Result Comment: [01/03/2018 Uncharted] ERROR NOT GIVEN 6Result Comment: [id number] exp 06/2009 7Admin Note: vis given 8Admin [...] 08/16/19 15:54:00 EDT, Route to Pharmacy Electronically, [facility] [place], [place] -, 163, cm, 07/11/19 13:24:00 EST, Win... Start Date: 08/16/19 Status: Ordered Biotene Moisturizing [...] 5 Refills, Maintenance, 08/16/19 15:52:00 EDT, Powder, [place], [place] -, 1 puffs Inhalation Daily,Instr:[place] [...] Acute 02/12/20 15:52:00 EDT, 08/16/19 15:52:00 EDT, [place], [place] -, 163, cm, 07/11/19 13:24:00 EST,Height, 114, kg, 04/19/18 23:58:00 EST, Dry Weight Start Date: 08/16/19 Stop Date: 02/12/20 Status: Ordered clonazePAM 0.5 mg oral tablet 2 tablet = 1 mg, By Mouth, 2 times a day, dose increased to 2 tabs bid 05/2018, # 120 tablet, 2 Refills, Maintenance, 11/22/19 8:21:00 EDT, [place], [place] -, 163, cm, 07/11/19 13:24:00 EST, Height, 114, kg, 04/19/18 23:58:00 EST, Start Date: 11/22/19 Stop Date: 02/20/20 Status: Ordered Daliresp 500 mcg oral tablet See Instructions, 1 tablet By Mouth Daily, # 30 each, 6 Refills, Maintenance, 08/16/19 15:51:00 EDT, [place], [place] -, 163, cm, 07/11/19 13:24:00 EST, [...] Maintenance, 08/15/2014:51:00 EDT, Route to Pharmacy Electronically, [place], [place] -, 163, cm, 07/11/19 13:24:00 EST, [...] Gm, 5 Refills, Maintenance, 08/16/19 15:53:00 EDT, [place], [place] -, 1 sprays Nares, Both 2 times a day, 163, cm, 07/11/19 13:24:00 EST, Height, 114, kg, 04/19/18 23:58:00 EST, Dry Weight Start Date: 08/16/19 Status: Ordered furosemide 40 mg oral tablet 40 mg, 1, tablet, By Mouth, 2 times a day, # 60 tablet, Refills 5, Tot. Refills 5, Maintenance, 08/16/19 15:51:00 EDT, Route to Pharmacy Electronically, [place], [place] -, 163, cm, 07/11/19 13:24:00 EST, Height, 114, kg, 04/19/18 23:... Start Date: 08/16/19 Stop Date: 02/12/20 Status: Ordered guaiFENesin 100 mg/5 mL oral liquid 20 mL = 400 mg, By Mouth, Every 6 hours, PRN Cough and Congestion, with fluids, # 240 mL, 0 Refills, Maintenance, 09/28/19 14:14:00 EDT, [place], [place] -, 163, cm, 07/11/19 13:24:00 EST, [...] 12/05/19 8:40:00 EDT, Route to Pharmacy Electronically, [place], [place] -, 163, cm, 07/11/19 13:24:... Start [...] 30 tablet, 5 Refills, 11/13/19 14:32:00 EDT, [place], [place] -, 163, cm, 07/11/19 13:24:00 EST, [...] 09/28/19 14:13:00 EDT, Route to Pharmacy Electronically, [facility] [place], [place] -, 163, cm, 07/11/2012:24:00 EST, Height, [...] tablet, 5 Refills, Maintenance, 08/16/19 15:50:00 EDT, [place], [place] -, 163, cm, 07/11/19 13:24:00 EST, Height, 114, kg, 04/19/18 23:58:00EST, Dry Weight Start Date: 08/16/19 Status: Ordered pregabalin 100 mg oral capsule 1 capsule = 100 mg, By Mouth, 3 times a day, dose increase to 100mg tid 12/05/2019., # 90 capsule, 2Refills, Maintenance, 12/05/19 8:38:00 EDT, [place], [place] -, 163, cm, 07/11/19 13:24:00 EST, [...] tablet, 5 Refills, Maintenance, 08/16/19 15:52:00 EDT, [place], [place] -, 163, cm, 07/11/19 13:24:00 EST, Height, 114, kg, 1... Start Date: 08/16/19 Status: Ordered triamcinolone 0.025% topical cream 1 applicator, Topically, 3 times a day, PRN eczema, # 80 Gm, 2 Refills, Maintenance, 08/16/19 15:48:00 EDT, [place], [place] -, 1 applicator Topically 3 times a day,PRN:eczema, 163, cm, 07/11/19 13:24:00 EST, Height, 114, kg, 04/19/18... Start Date: 08/16/19 Status: Ordered Ventolin HFA 108 mcg/inh inhalation aerosol with adapter 2 puffs, Inhalation, 4 times a day, PRN Wheezing/Shortness of Breath, 90 days supply, # 1 each, 5 Refills, Maintenance, 08/16/19 15:53:00 EDT, [place], [place] -, 163, cm, 07/11/19 13:24:00 EST, Height, 114, kg, 04/19/18 23:58:00 EST,... Start Date: 08/16/19 Status: Ordered verapamil 120 mg oral tablet 1 tablet = 120 mg, By Mouth, 3 times a day, dose increase 120 tid 09/28/2019., # 90 tablet, 5 Refills, Maintenance, 11/13/19 14:41:00 EDT, [place], [place] -, 163, cm, 07/11/19 13:24:00 EST, Height, 114, kg, 04/19/18 23:58:00 EST, Dry... Start Date: 11/13/19 Status: Ordered Vitamin D3 1000 intl units oral tablet 1 tablet = 1,000 International_Units, By Mouth, Daily, # 90 tablet, 3 Refills, Maintenance, 08/16/19 15:51:00 EDT, [place], [place] -, 163, cm, 07/11/19 13:24:00 EST, [...]
--- OUTSIDE RECORDS SUMMARY | 2023-09-15 07:40 | XMS_ITS | Continuity of Care Document ---
Author Organization [facility] Address [address], [address], [address] [place] [address]- Care Team Providers Care Cyber Forensic Specialist Name Role Phone Kwame Bolton Primary Care Physician [phone] [facility]counter [facility] Date[facility] 07/08/20 - 08/07/20 [facility] [address], [address], [address] [place] [id number] Allergies, Adverse Reactions, Alerts Substance Reaction [...] Comment: Received at [facility] on [facility] in [place] 2Admin Note: vis given 3Admin Note: vis given 4Result Comment: [02/22/2017] formerly named [facility] [id number] 5Admin Note: flulaval vis given vis date 11/16/2011 6Admin Note: VIS GIVEN VIS DATE 12/24/2009 7Admin Note: VIS GIVEN 12/25/08 egyptian 8Result Comment: [01/03/2018 Uncharted] ERROR NOT GIVEN 9Result Comment: [id number] exp 06/2009 10Admin Note: vis given Medications [...] each, 5 Refills, Maintenance, 06/11/20 11:38:00 EST, [facility] [place], [place] - [id number], 1 sprays By Mouth 6 times a day,Instr:please dispense 2 bottles per month... Start Date: 06/11/20 Status: Ordered Breo Ellipta 200 mcg-25 mcg/inh inhalation powder See Instructions, INHALE 1 PUFF BY MOUTH INTO THE lungs DAILY. rinse mouth and throat after use, # 60 Unknown, 11 Refills, 03/27/20 10:56:00 EST, [facility] [id number], 30, INHALE 1 PUFF BY MOUTH INTO [...] tablet, 0 Refills, Acute, 08/06/20 10:14:00 EDT, [facility], 163, cm, 07/31/20 13:11:00 EDT, Height Start Date: 08/06/20 Status: Ordered clonazePAM 0.5 mg oral tablet 2 tablet = 1 mg, By Mouth, 2 times a day, # 120 tablet, 2 Refills, Maintenance, 07/09/20 16:30:00 EST, [facility] [id number], 163, cm, 07/08/20 9:27:00 EST, Height Start Date: 07/09/20 Stop Date: 10/07/20 Status: Ordered Daliresp 500 mcg oral tablet See Instructions, TAKE ONE TABLET BY MOUTH DAILY, # 30 tablet, 6 Refills, Maintenance, [facility], 163, cm, 03/05/20 13:58:00 EDT, Height, [...] 12/15/19 10:10:00 EDT, Route to Pharmacy Electronically, [place], [place] - [id number], 163, cm, 07/11/19 13:24:00 EST, Height, 114, kg... Start Date: 12/15/19 Status: Ordered docusate sodium 100 mg oral capsule See Instructions, TAKE ONE CAPSULE BY MOUTH 2 (two) times a day, # 60 capsule, 5 Refills, 03/27/20 10:56:00 EST, [place], [place] - [id number], 163, cm, 03/05/20 13:58:00 EDT, Height, 114, [...] Gm, 5 Refills, Maintenance, 08/16/19 15:53:00 EDT, [place], [place] -, 1 sprays Nares, Both 2 times a day, 163, cm, 07/11/19 13:24:00 EST, Height, 114, kg, 04/19/18 23:58:00 EST, Dry Weight Start Date: 08/16/19 Status: Ordered furosemide 40 mg oral tablet 40 mg, 1, tablet, By Mouth, 2 times a day, # 60 tablet, Refills 5, Tot. Refills 5, Maintenance, 08/05/20 13:27:00 EDT, Route to Pharmacy Electronically, [place], [place] - [id number], 163, cm, 07/31/20 13:11:00 EDT, Height Start [...] 05/13/20 8:59:00 EST, Route to Pharmacy Electronically, [facility], 163, cm, 03/05/20 13:58:00 [...] 01/18/20 15:46:00 EDT, Route to Pharmacy Electronically, [facility]/pharmacy #[id number], 163, cm, 07/11/19 13:24:00 [...] Refills, Maintenance, 07/08/20 10:14:00 EST, CR Capsule, [place], [place] - [id number], Partial fill upon patient request if the [...] 08/06/20 10:14:00 EDT, Route to Pharmacy Electronically, [facility], 163, cm, 07/31/20 13:11:00 EDT, [...] tablet, 5 Refills, Maintenance, 05/13/20 8:59:00 EST, [facility], 163, cm, 03/05/20 13:58:00 [...] tablet, 5 Refills, Maintenance, 03/27/20 10:57:00 EST, [place], [place] -[id number], 163, cm, 03/05/20 13:58:00 EDT, Height,... Start Date: 03/27/20 Status: Ordered triamcinolone 0.025% topical cream 1 applicator, Topically, 3 times a day, PRN eczema, # 80 Gm, 2 Refills, Maintenance, 08/16/19 15:48:00 EDT, [place], [place] -, 1 applicator Topically 3 times a day,PRN:eczema, 163, cm, 07/11/19 13:24:00 EST, Height, 114, kg, 04/19/18... Start Date: 08/16/19 Status: Ordered value series power lift chair [id number] value series power lift chair [id number], See Instructions, # 1 each, Refills 0, Tot. Refills 0, Maintenance, Diagnosis codes: G89.29, M19.90, J44.9, Z74.09, 01/30/20 9:31:00 EDT, Supply Start Date: 01/30/20 Status: Ordered Ventolin HFA 108 mcg/inh inhalation aerosol with adapter 2 puffs, Inhalation, 4 times a day, PRN Wheezing/Shortness of Breath, 90 days supply, # 1 each, 5 Refills, Maintenance, 04/15/20 17:48:00 EST, [facility], [place] [id number], 163, cm,03/05/20 13:58:00 EDT, Height, 114, kg, 04/19/18 23... Start Date: 04/15/20 Status: Ordered verapamil 120 mg oral tablet 1 tablet, By Mouth, 3 times a day, home delivery please., # 90 tablet, 5 Refills, Maintenance, 05/21/20 11:21:00 EST, [facility], [place] [id number], 163, cm, 03/05/20 13:58:00 EDT, Height Start Date: 05/21/20 Status: Ordered Vitamin D3 1000 intl units oral tablet 1 tablet = 1,000 International_Units, By Mouth, Daily, # 90 tablet, 1 Refills, Maintenance, 08/10/20 15:51:00 EDT, [facility] [id number], 163, cm, 07/31/20 13:11:00 EDT, Height Start [...] sleep apnea(Confirmed) 4, 5 Active BHN/CCA/CP-Jo Ann Cunningham-[phone]/Health longterm active care coordination(Confirmed) Active 1Health Care Agent: [...]
--- OUTSIDE RECORDS SUMMARY | 2023-09-15 07:40 | XMS_ITS | Continuity of Care Document ---
Author Organization [facility] Address [address] [place] [address]- Care Team Providers Care Mail Opener Name Role Phone Kwame Bolton Primary Care Physician [facility] Date[facility]): 01/04/23 - 02/03/23 [facility] [address] [place] [address]- Allergies, Adverse Reactions, Alerts Substance Reaction Severity [...] 3Result Comment: dose 1 4Result Comment: [02/22/2017] [facility] [id number] 5Admin Note: flulaval vis given vis date 11/16/2011 6Admin Note: VIS GIVEN VIS DATE 12/24/2009 7Admin Note: VIS GIVEN 12/25/08 chilean 8Result Comment: Received at [facility] on [facility] in [place] 9Admin Note: vis given 10Admin Note: vis given 11Result Comment: [id number] exp 06/2009 12Admin Note: vis given Medications [...] each, 0 Refills, Maintenance, 01/05/23 14:03:00 EDT, [place], [place] - [id number], Partial fill upon patient request if the prescription is for a schedule II opioid drug., 163, c... Start Date: 01/05/23 Status: Ordered B-Complex with B-12 oral tablet See Instructions, TAKE 1 TABLET BY MOUTH ONCE DAILY WITH FOOD, # 90 tablet, 1 Refills, Maintenance,11/18/22 10:57:00 EDT, [facility], 90, TAKE 1 TABLET BY MOUTH ONCE DAILY WITH FOOD, 163, cm, 11/18/22 8:31:00 EDT, Height, 122, kg, 05/02/22 15:20... Start Date: 11/18/22 Status: Ordered Biotene Moisturizing Mouth oral spray 1 sprays, By Mouth, 6 times a day, BIOTENE NAME BRAND MAY BE REQUIRED, # 240 mL, 5 Refills, Maintenance, 11/18/22 8:47:00 EDT, [place], [place] - [id number], Partial fill upon patient request if the prescription is for a schedule II o... Start Date: 11/18/22 Status: Ordered Cane See Instructions, # 1 each, Maintenance, DX LEFT KNEE PAIN /ACL TEAR /ARTHRITIS DX CODE M25.562 HT 163 CM WT 123 KG DURATION -LIETIME PATIENTS VERA BOYKIN, 01/06/19 8:36:49 EDT, Compound Start Date: 01/06/19 Status: Ordered Comfort EZ Pen [place] 32 gauge x 5/32 Comfort EZ Pen [place] 32 gauge x 5/32 , See Instructions, # 50 Unknown, 11 Refills, USE DAILY WITHvictoza injection, 163, cm, 03/25/21 9:16:00 EST, Height Start Date: 04/01/21 Status: Ordered Comfort EZ Pen [place] 32 gauge x 5/32 Comfort EZ Pen [place] 32 gauge x 5/32 , See Instructions, # 50 Unknown, 0 Refills, USE DAILY WITH victoza injection, 163, cm, 12/18/20 9:01:00 EDT, Height Start Date: 02/05/21 Status: Ordered Comfort EZ Pen [place] 32 gauge x 5/32 Comfort EZ Pen [place] 32 gauge x 5/32 , See Instructions, [...] each, 5 Refills, Maintenance, 11/18/22 8:49:00 EDT, [facility] [id number], docusate dosing increase to bid 11/18/22., 163, cm, 11/18/22 8:3... Start Date: 11/18/22 Status: Ordered Ear Pain MD 4% otic liquid 2 drops, Ears, Both, 3 times a day, PRN Pain , Moderate, # 12.5 mL, 0 Refills, Maintenance, 01/04/23 21:24:00 EDT, [facility] [id number], Partial fill upon patient request ifthe prescription [...] tablet, 5 Refills, Maintenance, 11/18/22 10:57:00 EDT, [facility], 163, cm, 11/18/22 8:31:00 EDT, Height, 122, kg, 05/02/22 15:20:00 EST, Dry Weight Start Date: 11/18/22 Status: Ordered fluticasone 50 mcg/inh nasal spray 1 sprays, Nares, Both, Daily, # 16 Gm, 2 Refills, Maintenance, 12/29/22 17:51:00 EDT, [facility] [id number], Partial fill upon patient request if the prescription is for a schedule II opioid drug., 1 sprays Nares, Both Daily,... Start Date: 12/29/22 Status: Ordered furosemide 40 mg oral tablet 1, tablet, By Mouth, 2 times a day, # 60 tablet, Refills 5, Maintenance, 10/21/22 11:08:00 EDT, Route to Pharmacy Electronically, [facility], 163, cm, 10/14/22 8:43:00 EDT, Height, 122, [...] 11/18/22 8:47:00 EDT, Route to Pharmacy Electronically, [facility] [id number], 16... Start Date: 11/18/22 Status: Ordered INCONCTINENCE [...] 07/23/22 10:02:00 EST, Route to Pharmacy Electronically, [facility], 164, cm, 07/21/22 8:59:00 EST, Height, 122, kg, 05/02/22 15:20:00 EST, Dry Weight Start Date: 07/23/22 Status: Ordered magnesium gluconate 250 mg oral tablet 1 tablet = 250 mg, By Mouth, 2 times a day, # 60 tablet, 2 Refills, Maintenance, 11/18/22 16:58:00 EDT, [facility] [place], [place] - [id number], Partial fill upon patient request if the prescription is for a schedule II opioid drug., 1 tablet B... Start Date: 11/18/22 Status: Ordered Nicotrol Inhaler 10 mg inhalation device See Instructions, To use with nicotine cartridges in place of cigarettes, # 3 each, 0 Refills, Maintenance, 08/31/22 9:43:00 EDT, [facility] [id number], Partial fill upon patient request if the [...] each, 5 Refills, Maintenance, 11/18/22 8:46:00 EDT, [place], [place] - [id number], dose increase to 0.5mg per week 11/18/22., [...] Start Date: 01/31/20 Status: Ordered Potassium Chloride (Ouq-Yaex-Edw M20) 20 mEq oral tablet, extended release [...] tablet, 5 Refills, Maintenance, 08/18/22 11:22:00 EDT, [facility] [id number], please dispense in bubble pack. dose increase... Start Date: 08/18/22 Status: Ordered square orthopedic pillow with central square depression and surrounding bolster square orthopedic pillow with central square depression and surrounding bolster, See Instructions, # 1 each, Refills 0, Tot. Refills 0, Maintenance, Product number [id number] Dx codes: M54.2 Duration: lifetime, 07/21/22 14:25:00 EST, Supply Start Date: 07/21/22 Status: Ordered traZODone 150 mg oral tablet 3 tablet, By Mouth, Daily at bedtime, # 270 tablet, 6 Refills, 10/26/22 10:18:00 EDT, [facility] [id number], 163, cm, 10/14/22 8:43:00 EDT, Height, 122, kg, 05/02/22 15:20:00EST, Dry Weight Start Date: 10/26/22 Status: Ordered Trelegy Ellipta 200 mcg-62.5 mcg-25 mcg/inh inhalation powder 1 puffs, Inhalation, Daily, at the same time every day, # 9 each, 3 Refills, Maintenance, 08/31/22 9:41:00 EDT, Powder, [facility] [id number], Partial fill upon patient request if the prescription is for a schedule II opioid d... Start Date: 08/31/22 Status: Ordered value series power lift chair [id number] value series power lift chair [id number], See Instructions, # 1 each, Refills 0, Tot. Refills 0, Maintenance, Diagnosis codes: G89.29, M19.90, J44.9, Z74.09, 01/30/20 9:31:00 EDT, Supply Start Date: 01/30/20 Status: Ordered Ventolin HFA 108 mcg/inh inhalation aerosol with adapter 2 puffs, Inhalation, 4 times a day, PRN Wheezing/Shortness of Breath, 90 days supply, # 3 each, 1 Refills, Maintenance, 10/21/22 11:03:00 EDT, [facility] [place], [place] - [id number], 163, cm,10/14/22 8:43:00 EDT, Height, 122, kg, [...] 4, 5 Confirmed Active BHN/CCA/CP-Jo Ann Harvey [phone]/Health [facility] active care coordination Confirmed Active Severe obesity [...] Care Team Personnel Name: Kwame Bolton Position: S PCO Associate Professional Member Role: PCP Address: Address: [address] [place] [address] [place] [address]- Name: Perri Perry RN Position: [facility] RN Member Role: Primary Care Nurse Name: Alicia Vallecillo RN Position: [facility] RN Member Role: Primary Care Nurse Name: Maureen Smith RN Position: [facility] RN Member Role: Primary Care Nurse Name: Sultana Broussard RN Position: [facility] RN Member Role: Primary Care Nurse Name: Abigail Dior RN Position: [facility] RN Member Role: Primary Care Nurse Name: Ivette Carter RN Position: [facility] RN Member Role: Primary Care Nurse Name: Rukhsana Matthews RN Position: [facility] Car Manager Member Role: Primary Care Nurse Care Team Related Persons Name: TANA MENDOZA Address: [place] [address] Name: MARIA TERESA UMAÑA Address: home [address] [place] [address] Name: ANG GAFFNEY Address: home [address] [place] [address] Name: CHILO AHMADI Address: home [address] [address]
--- OUTSIDE RECORDS SUMMARY | 2023-09-15 07:40 | XMS_ITS | Continuity of Care Document ---
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 [id number] 3Admin Note: flulaval vis given vis date 11/16/2011 4Admin Note: VIS GIVEN VIS DATE 12/24/2009 5Admin Note: VIS GIVEN 12/25/08 romanian 6Result Comment: new booster 7Result Comment: dose 2 8Result Comment: dose 1 9Result Comment: Received at [facility] on [facility] in [place] 10Admin Note: vis given 11Admin Note: vis given 12Result Comment: [id number] exp 06/2009 13Admin Note: vis given Medications [...] EST, Compound Start Date: 07/12/19 Status: Ordered [place] Saline 0.65% nasal gel 1 sprays, Nares, Both, 4 times a day, # 22.5 Gm, 1 Refills, Maintenance, 04/12/23 8:20:00 EST, [facility] [id number], Partial fill upon patient request if the prescription isfor a schedule II opioid drug., 1 sprays Nares, Bot... Start Date: 04/12/23 Status: Ordered Azithromycin 5 Day Dose Pack 250 mg oral tablet See Instructions, as directed on package labeling, # 6 each, 0 Refills, Maintenance, 01/05/23 14:03:00 EDT, [facility] [id number], Partial fill upon patient request if the prescription is for a schedule II opioid drug., 163, c... Start Date: 01/05/23 Status: Ordered B-Complex with B-12 oral tablet See Instructions, TAKE 1 TABLET BY MOUTH ONCE DAILY WITH FOOD, # 90 tablet, 1 Refills, Maintenance,11/18/22 10:57:00 EDT, [facility], 90, TAKE 1 TABLET BY MOUTH ONCE DAILY WITH FOOD, 163, cm, 11/18/22 8:31:00 EDT, Height, 122, kg, 05/02/22 15:20... Start Date: 11/18/22 Status: Ordered Biotene Moisturizing Mouth oral spray 1 sprays, By Mouth, 6 times a day, BIOTENE NAME BRAND MAY BE REQUIRED, # 240 mL, 5 Refills, Maintenance, 11/18/22 8:47:00 EDT, [facility] [id number], Partial fill upon patient request if the prescription is for a schedule II o... Start Date: 11/18/22 Status: Ordered Cane See Instructions, # 1 each, Maintenance, DX LEFT KNEE PAIN /ACL TEAR /ARTHRITIS DX CODE M25.562 HT 163 CM WT 123 KG DURATION -LIETIME PATIENTS VERA BOYKIN, 01/06/19 8:36:49 EDT, Compound Start Date: 01/06/19 Status: Ordered Comfort EZ Pen [place] 32 gauge x 5/32 Comfort EZ Pen [place] 32 gauge x 5/32 , See Instructions, # 50 Unknown, 11 Refills, USE DAILY WITHvictoza injection, 163, cm, 03/25/21 9:16:00 EST, Height Start Date: 04/01/21 Status: Ordered Comfort EZ Pen [place] 32 gauge x 5/32 Comfort EZ Pen [place] 32 gauge x 5/32 , See Instructions, # 50 Unknown, 0 Refills, USE DAILY WITH victoza injection, 163, cm, 12/18/20 9:01:00 EDT, Height Start Date: 02/05/21 Status: Ordered Comfort EZ Pen [place] 32 gauge x 5/32 Comfort EZ Pen [place] 32 gauge x 5/32 , See Instructions, [...] each, 5 Refills, Maintenance, 03/17/23 9:55:00 EDT, [facility] [id number], Partial fill upon patient request if the prescription is for a schedule II... Start Date: 03/17/23 Status: Ordered docusate sodium 100 mg oral capsule 1 capsule, By Mouth, 2 times a day, dose frquency increase to twice per day 11/18/22, # 60 each, 5 Refills, Maintenance, 11/18/22 8:49:00 EDT, [facility] [id number], docusate dosing increase to bid 11/18/22., 163, cm, 11/18/22 8:3... Start Date: 11/18/22 Status: Ordered Ear Pain MD 4% otic liquid 2 drops, Ears, Both, 3 times a day, PRN Pain , Moderate, # 12.5 mL, 0 Refills, Maintenance, 01/04/23 21:24:00 EDT, [place], [place] - [id number], Partial fill upon patient request ifthe prescription [...] tablet, 5 Refills, Maintenance, 11/18/22 10:57:00 EDT, [facility], 163, cm, 11/18/22 8:31:00 EDT, Height, 122, kg, 05/02/22 15:20:00 EST, Dry Weight Start Date: 11/18/22 Status: Ordered fluticasone 50 mcg/inh nasal spray 1 sprays, Nares, Both, Daily, # 16 Gm, 2 Refills, Maintenance, 12/29/22 17:51:00 EDT, [place], [place] - [id number], Partial fill upon patient request if the prescription is for a schedule II opioid drug., 1 sprays Nares, Both Daily,... Start Date: 12/29/22 Status: Ordered furosemide 40 mg oral tablet 1, tablet, By Mouth, 2 times a day, # 60 tablet, Refills 5, Maintenance, 04/13/23 13:49:00 EST, Route to Pharmacy Electronically, [facility], 163, cm, 04/12/23 8:10:00 EST, [...] 04/15/23 14:20:00 EST, Route to Pharmacy Electronically, [facility], 163, cm, 04/12/23 8:10:00 EST, [...] 02/10/23 10:21:00 EDT, Route to Pharmacy Electronically, [facility], 163, cm, 01/20/23 8:13:00 EDT, Height, 122, kg, 05/02/22 15:20:00 EST, Dry Weight Start Date: 02/10/23 Status: Ordered Mag-G 500 mg oral tablet 0.5 tablet, By Mouth, 2 times a day, # 30 tablet, 2 Refills, Maintenance, 02/15/23 18:46:00 EDT, [facility], 163, cm, 01/20/23 8:13:00 EDT, Height, 122, kg, 05/02/22 15:20:00 EST, Dry Weight Start Date: 02/15/23 Status: Ordered Nicotrol Inhaler 10 mg inhalation device See Instructions, To use with nicotine cartridges in place of cigarettes, # 3 each, 0 Refills, Maintenance, 08/31/22 9:43:00 EDT, [facility] [place], [place] - [id number], Partial fill upon patient request if the [...] Start Date: 01/31/20 Status: Ordered Potassium Chloride (Apj-Bklj-Qsb M20) 20 mEq oral tablet, extended release [...] tablet, 6 Refills, Maintenance, 01/13/23 15:35:00 EDT, [facility], 163, cm, 12/22/22 8:54:00 EDT, [...] 5 Refills, Maintenance, 02/23/23 13:56:00 EDT, [place], [place] - [id number], please dispense in bubble pack. dose increase... Start Date: 02/23/23 Status: Ordered square orthopedic pillow with central square depression and surrounding bolster square orthopedic pillow with central square depression and surrounding bolster, See Instructions, # 1 each, Refills 0, Tot. Refills 0, Maintenance, Product number [id number] Dx codes: M54.2 Duration: lifetime, 07/21/22 14:25:00 EST, Supply Start Date: 07/21/22 Status: Ordered traZODone 150 mg oral tablet 3 tablet, By Mouth, Daily at bedtime, # 270 tablet, 6 Refills, 10/26/22 10:18:00 EDT, [place], [place] - [id number], 163, cm, 10/14/22 8:43:00 EDT, Height, 122, kg, 05/02/22 15:20:00EST, Dry Weight Start Date: 10/26/22 Status: Ordered Trelegy Ellipta 200 mcg-62.5 mcg-25 mcg/inh inhalation powder 1 puffs, Inhalation, Daily, at the same time every day, # 9 each, 3 Refills, Maintenance, 08/31/22 9:41:00 EDT, Powder, [place], [place] - [id number], Partial fill upon patient request if the prescription is for a schedule II opioid d... Start Date: 08/31/22 Status: Ordered value series power lift chair [id number] value series power lift chair [id number], See Instructions, # 1 each, Refills 0, Tot. Refills 0, Maintenance, Diagnosis codes: G89.29, M19.90, J44.9, Z74.09, 01/30/20 9:31:00 EDT, Supply Start Date: 01/30/20 Status: Ordered Ventolin HFA 108 mcg/inh inhalation aerosol with adapter 2 puffs, Inhalation, 4 times a day, PRN NEEDED FOR SHORTNESS OF BREATH OR FOR WHEEZING, # 18 Gm,5 Refills, Maintenance, 04/13/23 13:49:00 EST, [facility], 163, cm, 04/12/23 8:10:00 EST, Height, [...] 4, 5 Confirmed Active BHN/CCA/CP-Jo Ann Harvey [phone]/Health [facility] active care coordination Confirmed Active BHN/CCA/LCC Lisa Gutierrez [phone]/Health [facility] active care coordination Confirmed Active Severe [...] Care Team Personnel Name: Kwame Bolton Position: [facility] PCO Associate Professional Member Role: PCP Address: Address: [address] [place] [address] [place] [address]- Name: Perri Perry RN Position: [facility] RN Member Role: Primary Care Nurse Name: Alicia Vallecillo RN Position: [facility] RN Member Role: Primary Care Nurse Name: Maureen Smith RN Position: [facility] RN Member Role: Primary Care Nurse Name: Sultana Broussard RN Position: [facility] RN Member Role: Primary Care Nurse Name: Abigail Dior RN Position: [facility] RN Member Role: Primary Care Nurse Name: Ivette Carter RN Position: [facility] RN Member Role: Primary Care Nurse Name: Rukhsana Matthews RN Position: [facility] Hospital Portable Pinch Riveter Member Role: Primary Care Nurse Care Team Related Persons Name: TANA MENDOZA Address: [place] [address] Name: MARIA TERESA UMAÑA Address: home [address] [place] [address] Name: ANG GAFFNEY Address: home [address] [place] [address] Name: CHILO AHMADI Address: home [address] [address]
--- OUTSIDE RECORDS SUMMARY | 2023-09-15 07:40 | XMS_ITS | Continuity of Care Document ---
Author Organization 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 [address] [place] [id number] Attending Physician: Not on Staff, Attending MD [...] Comment: dose 1 3Result Comment: Received at [facility] on [facility] in [place] 4Admin Note: vis given 5Admin Note: vis given 6Result Comment: [02/22/2017] [facility] [id number] 7Admin Note: flulaval vis given vis date 11/16/2011 8Admin Note: VIS GIVEN VIS DATE 12/24/2009 9Admin Note: VIS GIVEN 12/25/08 [email or web address] 10Result Comment: [01/03/2018 Uncharted] ERROR NOT GIVEN 11Result Comment: [id number] exp 06/2009 12Admin Note: vis given Medications [...] Date: 01/06/19 Status: Ordered Comfort EZ Pen Panther 32 gauge x 5/32 Comfort EZ Pen Panther 32 gauge x 5/32 , See Instructions, # 50 Unknown, 11 Refills, USE DAILY WITHvictoza injection, 163, cm, 03/25/21 9:16:00 EST, Height Start Date: 04/01/21 Status: Ordered Comfort EZ Pen Panther 32 gauge x 5/32 Comfort EZ Pen Panther 32 gauge x 5/32 , See Instructions, # 50 Unknown, 0 Refills, USE DAILY WITH victoza injection, 163, cm, 12/18/20 9:01:00 EDT, Height Start Date: 02/05/21 Status: Ordered D3 1000 intl units (25 mcg) oral tablet 1 tablet, By Mouth, Daily, # 30 tablet, 5 Refills, [facility], 163, cm, 09/26/21 13:20:00 EDT,Height Start Date: 12/22/21 Status: Ordered Daliresp 500 mcg oral tablet 1 tablet, By Mouth, Daily, # 30 tablet, 6 Refills, [facility], 163, cm, 09/26/21 13:20:00 EDT,Height Start Date: 11/14/21 Status: Ordered docusate sodium 100 mg oral capsule 1 capsule, By Mouth, Daily, # 60 each, 5 Refills, Maintenance, 04/04/21 11:02:00 EST, [facility] - [place], [place] - [id number], 163, cm, 03/25/21 9:16:00 EST, Height Start [...] tablet, Refills 4, Route to Pharmacy Electronically, [facility], 163, cm, 09/26/21 13:20:00 EDT, Height Start Date: 11/14/21 Status: Ordered guaiFENesin 100 mg/5 mL oral liquid 20 mL = 400 mg, By Mouth, 2 times a day, for congestion, cough. with fluids, # 240 mL, 0 Refills, Maintenance, 04/14/21 8:42:00 EST, [place], [place] - [id number], Partial fill upon patient request if the [...] NEEDEDFOR SEVERE PAIN, Route to Pharmacy Electronically, [facility], 163, cm, 03/25/21 9:16:00 EST, [...] tablet, Refills 3, Route to Pharmacy Electronically, [facility], 163, cm, 09/26/21 13:20:00 EDT, Height Start Date: 12/22/21 Status: Ordered Narcan 4 mg/0.1 mL nasal [...] EDT, Compound Start Date: 01/31/20 Status: Ordered orphenadrine 100 mg oral tablet, extended release 100 mg, 1, tablet, By Mouth, 2 times a day, PRN, for 30 days, # 60 tablet, Refills 0, Tot. Refills 0, Acute 01/28/22 10:13:00 EDT, muscle spasm, 12/29/21 10:13:00 EDT, Route to Pharmacy Electronically, [facility] - [place], [place] - [id number], s... Start Date: 12/29/21 Stop Date: 01/28/22 Status: Ordered overnight oximetry overnight oximetry, See [...] Start Date: 01/31/20 Status: Ordered Potassium Chloride (Eyh-Fvnl-Nvw M20) 20 mEq oral tablet, extended release 1 tablet, By Mouth, Daily, # 30 tablet, 6 Refills, [facility], 163, cm, 09/26/21 13:20:00 [...] 0, Tot. Refills 0, Maintenance, Product number [id number] Dx codes: M54.2 Duration: lifetime, 02/27/21 19:03:00 EDT, Supply Start Date: 02/27/21 Status: Ordered traZODone 150 mg oral tablet 3 tablet, By Mouth, Daily at bedtime, # 270 tablet, 6 Refills, [facility], 163, cm, 09/26/21 13:20:00 EDT, Height Start Date: 11/14/21 Status: Ordered value series power lift chair [id number] value series power lift chair [id number], See Instructions, # 1 each, Refills 0, Tot. Refills 0, Maintenance, Diagnosis codes: G89.29, M19.90, J44.9, Z74.09, 01/30/20 9:31:00 EDT, Supply Start Date: 01/30/20 Status: Ordered varenicline 1mg tablet 1 tablet, By Mouth, 2 times a day, # 56 tablet, 5 Refills, [facility], 163, cm, 09/26/21 13:20:00 EDT, Height Start Date: 12/22/21 Status: Ordered Ventolin HFA 108 mcg/inh inhalation aerosol with adapter 2 puffs, Inhalation, 4 times a day, PRN Wheezing/Shortness of Breath, 90 days supply, # 1 each, 5 Refills, Maintenance, 10/07/20 6:45:00 EDT, [place], [place] - [id number], 163, cm, 09/24/20 13:25:00 EDT, Height Start Date: 10/07/20 Status: Ordered Victoza 18 mg/3 mL subcutaneous solution = 1.2 mg, Subcutaneous Infusion, Daily, dose increase to 1.2mg qd 04/29/21., # 15 mL, 5 Refills, Maintenance, 04/29/21 8:26:00 EST, [place], [place] - [id number], Partial fill upon patient request if the [...] apnea(Confirmed) 4, 5 Active BHN/CCA/CP-Jo Ann Harvey [phone]/Health halfway active care coordination(Confirmed) Active Severe obesity(Confirmed) Active [...] age: 9; entered on: 02/06/14 Sex Female Care Team Personnel Name: Kwame Bolton Address: [address] [place] [address] Adult [place], [place] [address]
--- OUTSIDE RECORDS SUMMARY | 2023-09-15 07:41 | XMS_ITS | Continuity of Care Document ---
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 Name Role Phone Kwame Bolton Primary Care Physician Encounter [facility] Date(s): 01/27/22 - 02/26/[address] [id number] Attending Physician: AdmDarryl melo Admitting Physician: AdmtrDarryl [...] Comment: dose 1 3Result Comment: Received at [facility] on [facility] in [place] 4Admin Note: vis given 5Admin Note: vis given 6Result Comment: [02/22/2017] [facility] [id number] 7Admin Note: flulaval vis given vis date 11/16/2011 8Admin Note: VIS GIVEN VIS DATE 12/24/2009 9Admin Note: VIS GIVEN 12/25/08 [email or web address] 10Result Comment: [01/03/2018 Uncharted] ERROR NOT GIVEN 11Result Comment: [id number] exp 06/2009 12Admin Note: vis given Medications [...] WITH FOOD, # 90 tablet, 3 Refills, [facility], 90, TAKE ONE TABLET BY [...] Date: 01/06/19 Status: Ordered Comfort EZ Pen Ethel 32 gauge x 5/32 Comfort EZ Pen Ethel 32 gauge x 5/32 , See Instructions, # 50 Unknown, 11 Refills, USE DAILY WITHvictoza injection, 163, cm, 03/25/21 9:16:00 EST, Height Start Date: 04/01/21 Status: Ordered Comfort EZ Pen Ethel 32 gauge x 5/32 Comfort EZ Pen Ethel 32 gauge x 5/32 , See Instructions, [...] tablet, Refills 4, Route to Pharmacy Electronically, [facility], 163, cm, 09/26/21 13:20:00 EDT, Height Start Date: 11/14/21 Status: Ordered guaiFENesin 100 mg/5 mL oral liquid 20 mL = 400 mg, By Mouth, 2 times a day, for congestion, cough. with fluids, # 240 mL, 0 Refills, Maintenance, 04/14/21 8:42:00 EST, [place], [place] - [id number], Partial fill upon patient request if the [...] 02/18/22 11:21:00 EDT, Route to Pharmacy Electronically, [facility], 163, cm, 12/29/21 9:41:00 EDT, [...] tablet, Refills 3, Route to Pharmacy Electronically, [facility], 163, cm, 09/26/21 13:20:00 EDT, Height Start Date: 12/22/21 Status: Ordered magnesium gluconate 250 mg oral tablet 1 tablet = 250 mg, By Mouth, 2 times a day, # 60 tablet, 2 Refills, Maintenance, 02/23/22 19:10:00 EDT, [facility] - [place], [place] - [id number], Partial fill upon patient request if the [...] Start Date: 01/31/20 Status: Ordered Potassium Chloride (Nbf-Vlqj-Fpn M20) 20 mEq oral tablet, extended release 1 tablet, By Mouth, Daily, # 30 tablet, 6 Refills, [facility], 163, cm, 09/26/21 13:20:00 EDT,Height [...] 0, Tot. Refills 0, Maintenance, Product number [id number] Dx codes: M54.2 Duration: lifetime, 02/27/21 19:03:00 EDT, Supply Start Date: 02/27/21 Status: Ordered traZODone 150 mg oral tablet 3 tablet, By Mouth, Daily at bedtime, # 270 tablet, 6 Refills, [facility], 163, cm, 09/26/21 13:20:00 EDT, Height Start Date: 11/14/21 Status: Ordered value series power lift chair [id number] value series power lift chair [id number], See Instructions, # 1 each, Refills 0, Tot. Refills 0, Maintenance, Diagnosis codes: G89.29, M19.90, J44.9, Z74.09, 01/30/20 9:31:00 EDT, Supply Start Date: 01/30/20 Status: Ordered varenicline 1mg tablet 1 tablet, By Mouth, 2 times a day, # 56 tablet, 5 Refills, [facility], 163, cm, 09/26/21 13:20:00 EDT, Height Start Date: 12/22/21 Status: Ordered Ventolin HFA 108 mcg/inh inhalation aerosol with adapter 2 puffs, Inhalation, 4 times a day, PRN Wheezing/Shortness of Breath, 90 days supply, # 1 each, 5 Refills, Maintenance, 10/07/20 6:45:00 EDT, [place], [place] - [id number], 163, cm, 09/24/20 13:25:00 EDT, Height Start Date: 10/07/20 Status: Ordered Victoza 18 mg/3 mL subcutaneous solution = 1.2 mg, Subcutaneous Infusion, Daily, dose increase to 1.2mg qd 04/29/21., # 15 mL, 5 Refills, Maintenance, 04/29/21 8:26:00 EST, [place], [place] - [id number], Partial fill upon patient request if the [...] 4, 5 Confirmed Active BHN/CCA/CP-Jo Ann Harvey [phone]/Health long-term active care coordination Confirmed Active Severe [...] day; Started at age: 9; entered on: 9/23/14 Sex Female Patient Care team information Personnel Name: Kwame Bolton Address: Address: [address] [place] [address] Adult [place], [place] [address]
--- OUTSIDE RECORDS SUMMARY | 2023-09-15 07:41 | XMS_ITS | Continuity of Care Document ---
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 Name Role Phone Kwame Bolton Primary Care Physician Encounter [facility] Date(s): 01/05/23 - 02/04/23 [facility] [address] [place] [id number] Attending Physician: Adis Cerda MD Admitting Physician: Adis Cerda MD Allergies, Adverse Reactions, Alerts Substance Reaction Severity Status Shrimp throat tightening; vomiting Active Other Environmental Allergy Seasonal Allergies Active FIRST Metronidazole 1 vomiting, diarrhea, dyspnea Pers istent Moderate Active Lobster throat tightening; vomiting Active 1VOMITING DIARRHEA,SEVERE DYPNEA [...] 3Result Comment: dose 1 4Result Comment: [02/22/2017] [facility] [id number] 5Admin Note: flulaval vis given vis date 11/16/2011 6Admin Note: VIS GIVEN VIS DATE 12/24/2009 7Admin Note: VIS GIVEN 12/25/08 fijian 8Result Comment: Received at [facility] on [facility] in [place] 9Admin Note: vis given 10Admin Note: vis given 11Result Comment: [id number] exp 06/2009 12Admin Note: vis given Medications [...] each, 0 Refills, Maintenance, 01/05/23 14:03:00 EDT, [place], [place] - [id number], Partial fill upon patient request if the prescription is for a schedule II opioid drug., 163, c... Start Date: 01/05/23 Status: Ordered B-Complex with B-12 oral tablet See Instructions, TAKE 1 TABLET BY MOUTH ONCE DAILY WITH FOOD, # 90 tablet, 1 Refills, Maintenance,11/18/22 10:57:00 EDT, [facility], 90, TAKE 1 TABLET BY MOUTH ONCE DAILY WITH FOOD, 163, cm, 11/18/22 8:31:00 EDT, Height, 122, kg, 05/02/22 15:20... Start Date: 11/18/22 Status: Ordered Biotene Moisturizing Mouth oral spray 1 sprays, By Mouth, 6 times a day, BIOTENE NAME BRAND MAY BE REQUIRED, # 240 mL, 5 Refills, Maintenance, 11/18/22 8:47:00 EDT, [place], [place] - [id number], Partial fill upon patient request if the prescription is for a schedule II o... Start Date: 11/18/22 Status: Ordered Cane See Instructions, # 1 each, Maintenance, DX LEFT KNEE PAIN /ACL TEAR /ARTHRITIS DX CODE M25.562 HT 163 CM WT 123 KG DURATION -LIETIME PATIENTS VERA BOYKIN, 01/06/19 8:36:49 EDT, Compound Start Date: 01/06/19 Status: Ordered Comfort EZ Pen [place] 32 gauge x 5/32 Comfort EZ Pen [place] 32 gauge x 5/32 , See Instructions, # 50 Unknown, 11 Refills, USE DAILY WITHvictoza injection, 163, cm, 03/25/21 9:16:00 EST, Height Start Date: 04/01/21 Status: Ordered Comfort EZ Pen [place] 32 gauge x 5/32 Comfort EZ Pen [place] 32 gauge x 5/32 , See Instructions, # 50 Unknown, 0 Refills, USE DAILY WITH victoza injection, 163, cm, 12/18/20 9:01:00 EDT, Height Start Date: 02/05/21 Status: Ordered Comfort EZ Pen [place] 32 gauge x 5/32 Comfort EZ Pen [place] 32 gauge x 5/32 , See Instructions, [...] each, 5 Refills, Maintenance, 11/18/22 8:49:00 EDT, [facility] [id number], docusate dosing increase to bid 11/18/22., 163, cm, 11/18/22 8:3... Start Date: 11/18/22 Status: Ordered Ear Pain MD 4% otic liquid 2 drops, Ears, Both, 3 times a day, PRN Pain , Moderate, # 12.5 mL, 0 Refills, Maintenance, 01/04/23 21:24:00 EDT, [facility] [id number], Partial fill upon patient request ifthe prescription [...] tablet, 5 Refills, Maintenance, 11/18/22 10:57:00 EDT, [facility], 163, cm, 11/18/22 8:31:00 EDT, Height, 122, kg, 05/02/22 15:20:00 EST, Dry Weight Start Date: 11/18/22 Status: Ordered fluticasone 50 mcg/inh nasal spray 1 sprays, Nares, Both, Daily, # 16 Gm, 2 Refills, Maintenance, 12/29/22 17:51:00 EDT, [facility] [id number], Partial fill upon patient request if the prescription is for a schedule II opioid drug., 1 sprays Nares, Both Daily,... Start Date: 12/29/22 Status: Ordered furosemide 40 mg oral tablet 1, tablet, By Mouth, 2 times a day, # 60 tablet, Refills 5, Maintenance, 10/21/22 11:08:00 EDT, Route to Pharmacy Electronically, [facility], 163, cm, 10/14/22 8:43:00 EDT, Height, [...] 11/18/22 8:47:00 EDT, Route to Pharmacy Electronically, [facility] [id number], 16... Start Date: 11/18/22 Status: Ordered INCONCTINENCE [...] 07/23/22 10:02:00 EST, Route to Pharmacy Electronically, [facility], 164, cm, 07/21/22 8:59:00 EST, Height, 122, kg, 05/02/22 15:20:00 EST, Dry Weight Start Date: 07/23/22 Status: Ordered magnesium gluconate 250 mg oral tablet 1 tablet = 250 mg, By Mouth, 2 times a day, # 60 tablet, 2 Refills, Maintenance, 11/18/22 16:58:00 EDT, [place], [place] - [id number], Partial fill upon patient request if the prescription is for a schedule II opioid drug., 1 tablet B... Start Date: 11/18/22 Status: Ordered Nicotrol Inhaler 10 mg inhalation device See Instructions, To use with nicotine cartridges in place of cigarettes, # 3 each, 0 Refills, Maintenance, 08/31/22 9:43:00 EDT, [facility] [id number], Partial fill upon patient request if the [...] each, 5 Refills, Maintenance, 11/18/22 8:46:00 EDT, [facility] [id number], dose increase to 0.5mg per week 11/18/22., [...] Start Date: 01/31/20 Status: Ordered Potassium Chloride (Tex-Ezxz-Ets M20) 20 mEq oral tablet, extended release [...] tablet, 5 Refills, Maintenance, 08/18/22 11:22:00 EDT, [facility] [id number], please dispense in bubble pack. dose increase... Start Date: 08/18/22 Status: Ordered square orthopedic pillow with central square depression and surrounding bolster square orthopedic pillow with central square depression and surrounding bolster, See Instructions, # 1 each, Refills 0, Tot. Refills 0, Maintenance, Product number [id number] Dx codes: M54.2 Duration: lifetime, 07/21/22 14:25:00 EST, Supply Start Date: 07/21/22 Status: Ordered traZODone 150 mg oral tablet 3 tablet, By Mouth, Daily at bedtime, # 270 tablet, 6 Refills, 10/26/22 10:18:00 EDT, [facility] [id number], 163, cm, 10/14/22 8:43:00 EDT, Height, 122, kg, 05/02/22 15:20:00EST, Dry Weight Start Date: 10/26/22 Status: Ordered Trelegy Ellipta 200 mcg-62.5 mcg-25 mcg/inh inhalation powder 1 puffs, Inhalation, Daily, at the same time every day, # 9 each, 3 Refills, Maintenance, 08/31/22 9:41:00 EDT, Powder, [facility] [id number], Partial fill upon patient request if the prescription is for a schedule II opioid d... Start Date: 08/31/22 Status: Ordered value series power lift chair [id number] value series power lift chair [id number], See Instructions, # 1 each, Refills 0, Tot. Refills 0, Maintenance, Diagnosis codes: G89.29, M19.90, J44.9, Z74.09, 01/30/20 9:31:00 EDT, Supply Start Date: 01/30/20 Status: Ordered Ventolin HFA 108 mcg/inh inhalation aerosol with adapter 2 puffs, Inhalation, 4 times a day, PRN Wheezing/Shortness of Breath, 90 days supply, # 3 each, 1 Refills, Maintenance, 10/21/22 11:03:00 EDT, [facility] - [place], [place] - [id number], 163, cm,10/14/22 8:43:00 EDT, Height, 122, kg, [...] 4, 5 Confirmed Active BHN/CCA/CP-Jo Ann Harvey [phone]/Health retirement active care coordination Confirmed Active Severe obesity [...] Care Team Personnel Name: Kwame Bolton Position: [facility] PCO Associate Professional Member Role: PCP Address: Address: [address] [place] [address] [place] [address]- Name: Perri Perry RN Position: [facility] RN Member Role: Primary Care Nurse Name: Alicia Vallecillo RN Position: [facility] RN Member Role: Primary Care Nurse Name: Maureen Smith RN Position: [facility] RN Member Role: Primary Care Nurse Name: Sultana Broussrad RN Position: [facility] RN Member Role: Primary Care Nurse Name: Abigail Dior RN Position: [facility] RN Member Role: Primary Care Nurse Name: Ivette Carter RN Position: [facility] RN Member Role: Primary Care Nurse Name: Rukhsana Matthews RN Position: [facility] Member Role: Primary Care Nurse Care Team Related Persons Name: KELLY TANA Address: [place] [address] Name: MARIA TERESA UMAÑA Address: home [address] [place] [address] Name: ANG GAFFNEY Address: home [address] [place] [address] Name: CHILO AHMADI Address: home [address] [address]
--- OUTSIDE RECORDS SUMMARY | 2023-09-15 07:41 | XMS_ITS | Continuity of Care Document ---
Author Organization [facility] Address [address] [place] [address]- Care Team Providers Care Research Computing Specialist Name Role Phone Kwame Bolton Primary Care Physician Encounter [facility] Date(s): 05/06/20 - 06/05/20 [facility] [address] [place] [id number] Allergies, Adverse Reactions, Alerts Substance Reaction [...] (oldterm) 08/08/06 Given 1Result Comment: Received at [facility] on [facility] in [place] 2Admin Note: vis given 3Admin Note: vis given 4Result Comment: [02/22/2017] [facility] [id number] 5Admin Note: flulaval vis given vis date 11/16/2011 6Admin Note: VIS GIVEN VIS DATE 12/24/2009 7Admin Note: VIS GIVEN 12/25/08 chinese 8Result Comment: [01/03/2018 Uncharted] ERROR NOT GIVEN 9Result Comment: [id number] exp 06/2009 10Admin Note: vis given Medications [...] capsule, 0 Refills, Maintenance, 03/05/20 14:41:00 EDT, [facility]/pharmacy #[id number], 1 capsule By [...] 5 Refills, Maintenance, 08/16/19 15:52:00 EDT, Powder, [place], [place] -, 1 puffs Inhalation Daily,Instr:[place] after each use, 163, cm, 07/11/19 13:24:... Start Date: 08/16/19 Status: Ordered Breo Ellipta 200 mcg-25 mcg/inh inhalation powder See Instructions, INHALE 1 PUFF BY MOUTH INTO THE lungs DAILY. rinse mouth and throat after use, # 60 Unknown, 11 Refills, 03/27/20 10:56:00 EST, [place], [place] - [id number], 30, INHALE 1 PUFF BY MOUTH INTO [...] tablet, 3 Refills, Maintenance, 03/27/20 10:55:00 EST, [facility] [id number], 163, cm, 03/05/20 13:58:00 EDT, Height, 114, kg, 04/19/18 23:58:00 EST, Dry Weight Start Date: 03/27/20 Status: Ordered clonazePAM 0.5 mg oral tablet 2 tablet = 1 mg, By Mouth, 2 times a day, # 120 tablet, 2 Refills, Maintenance, 03/27/20 10:57:00 EST, [facility] [id number], 163, cm, 03/05/20 13:58:00 EDT, Height, 114, kg,04/19/18 23:58:00 EST, Dry Weight Start Date: 03/27/20 Stop Date: 06/25/20 Status: Ordered Daliresp 500 mcg oral tablet See Instructions, 1 tablet By Mouth Daily, # 30 each, 6 Refills, Maintenance, 08/16/19 15:51:00 EDT, [place], [place] -, 163, cm, 07/11/19 13:24:00 EST, Height, 114, kg, 04/19/18 23:58:00 EST, Dry Weight Start Date: 08/16/19 Status: Ordered Daliresp 500 mcg oral tablet See Instructions, TAKE ONE TABLET BY MOUTH DAILY, # 30 tablet, 6 Refills, Maintenance, [facility], 163, cm, 03/05/20 13:58:00 EDT, Height, [...] 12/15/19 10:10:00 EDT, Route to Pharmacy Electronically, [place], [place] - [id number], 163, cm, 07/11/19 13:24:00 EST, Height, 114, kg... Start Date: 12/15/19 Status: Ordered docusate sodium 100 mg oral capsule See Instructions, TAKE ONE CAPSULE BY MOUTH 2 (two) times a day, # 60 capsule, 5 Refills, 03/27/20 10:56:00 EST, [place], [place] - [id number], 163, cm, 03/05/20 13:58:00 EDT, Height, 114, [...] Gm, 5 Refills, Maintenance, 08/16/19 15:53:00 EDT, [place], [place] -, 1 sprays Nares, Both 2 times a day, 163, cm, 07/11/19 13:24:00 EST, Height, 114, kg, 04/19/18 23:58:00 EST, Dry Weight Start Date: 08/16/19 Status: Ordered furosemide 40 mg oral tablet 40 mg, 1, tablet, By Mouth, 2 times a day, # 60 tablet, Refills 3, Tot. Refills 3, Maintenance, 03/27/20 10:58:00 EST, Route to Pharmacy Electronically, [place], [place] - [id number], 163, cm, 03/05/20 13:58:00 EDT, Height, 114, kg, 1... Start Date: 03/27/20 Stop Date: 07/25/20 Status: Ordered guaiFENesin 100 mg/5 mL oral liquid 20 mL = 400 mg, By Mouth, Every 6 hours, PRN Cough and Congestion, with fluids, # 240 mL, 0 Refills, Maintenance, 09/28/19 14:14:00 EDT, [place], [place] -, 163, cm, 07/11/19 13:24:00 EST, [...] 05/13/20 8:59:00 EST, Route to Pharmacy Electronically, [facility], 163, cm, 03/05/20 13:58:00 EDT, [...] InstructionsReplace Required Details, Route to Pharmacy Electronically, [facility], 163, cm, 03/05/20 13:58:00 EDT, Height, 114, kg, 04/19/18 23:58:00 ESTDr... Start Date: 03/19/20 Status: Ordered loratadine 10 mg oral tablet 10 mg, 1, tablet, By Mouth, Daily, # 30 tablet, Refills 3, Tot. Refills 3, Maintenance, 01/18/20 15:46:00 EDT, Route to Pharmacy Electronically, [facility]/pharmacy #[id number], 163, cm, 07/11/19 [...] 12/26/19 16:58:00 EDT, Route to Pharmacy Electronically, [facility] [id number], 163, cm, 07/11/19 13:24:00 EST, Height, 114, kg,... Start Date: 12/26/19 Status: Ordered OXcarbazepine 150 mg oral tablet See Instructions, TAKE ONE TABLET BY MOUTH 2 (two) times a day, # 60 tablet, Refills 3, Tot. Refills 3, 03/27/20 10:55:00 EST, Instructions Replace Required Details, Route to Pharmacy Electronically,[facility] [id number], 163... Start Date: 03/27/20 Status: Ordered portable oxygen concentrator portable oxygen concentrator, See Instructions, # 1 each, Refills 0, Tot. Refills 0, Maintenance, Dx severe COPD. Codes J44.9, R09.02, 01/31/20 16:26:00 EDT, Compound Start Date: 01/31/20 Status: Ordered potassium chloride 20 mEq oral tablet, extended release 1 tablet, By Mouth, Daily, # 30 tablet, 5 Refills, Maintenance, 05/13/20 8:59:00 EST, [facility], 163, cm, 03/05/20 13:58:00 EDT, Height Start Date: 05/13/20 Status: Ordered predniSONE 20 mg oral tablet 2 tablet = 40 mg, By Mouth, Daily in AM, with food or milk home delivery please, # 6 tablet, 0 Refills, Maintenance, 05/30/20 20:00:00 EST, [place], [place] - [id number], 163, cm, 03/05/20 13:58:00 EDT, Height Start [...] Refills, Soft Stop, 01/17/20 11:40:00 EDT, Powder, [facility]/pharmacy #[id number], 0.5 mL Intramuscular [...] 0 Refills, Maintenance, 03/19/20 17:18:00 EST, Tablet, [place], [place] -... Start Date: 03/19/20 Status: Ordered tinidazole 500 mg oral tablet 4 tablet = 2,000 mg, By Mouth, Daily, with food, # 8 tablet, 0 Refills, Soft Stop, 03/18/20 14:36:00 EST, [facility] [id number], 163, cm, 03/05/20 13:58:00 EDT, Height, 114, kg, 04/19/18 23:58:00 EST, Dry Weight Start Date: 03/18/20 Stop Date: 03/20/20 Status: Ordered traZODone 150 mg oral tablet 3 tablet = 450 mg, By Mouth, Daily at bedtime, Please d/c order for 300mg qhs. Correct dose 450mg qhs., # 90 tablet, 5 Refills, Maintenance, 03/27/20 10:57:00 EST, [id number], 163, cm, 03/05/20 13:58:00 EDT, Height,... Start Date: 03/27/20 Status: Ordered triamcinolone 0.025% topical cream 1 applicator, Topically, 3 times a day, PRN eczema, # 80 Gm, 2 Refills, Maintenance, 08/16/19 15:48:00 EDT, [place], [place] -, 1 applicator Topically 3 times a day,PRN:eczema, 163, cm, 07/11/19 13:24:00 EST, Height, 114, kg, 04/19/18... Start Date: 08/16/19 Status: Ordered value series power lift chair [id number] value series power lift chair [id number], See Instructions, # 1 each, Refills 0, Tot. Refills 0, Maintenance, Diagnosis codes: G89.29, M19.90, J44.9, Z74.09, 01/30/20 9:31:00 EDT, Supply Start Date: 01/30/20 Status: Ordered Ventolin HFA 108 mcg/inh inhalation aerosol with adapter 2 puffs, Inhalation, 4 times a day, PRN Wheezing/Shortness of Breath, 90 days supply, # 1 each, 5 Refills, Maintenance, 04/15/20 17:48:00 EST, [facility] [id number], 163, cm,10/20/20 13:58:00 EDT, Height, 114, kg, 04/19/18 23... Start Date: 04/15/20 Status: Ordered verapamil 120 mg oral tablet 1 tablet, By Mouth, 3 times a day, home delivery please., # 90 tablet, 5 Refills, Maintenance, 05/21/20 11:21:00 EST, [place], [place] - [id number], 163, cm, 03/05/20 13:58:00 EDT, Height Start Date: 05/21/20 Status: Ordered Vitamin D3 1000 intl units oral tablet 1 tablet = 1,000 International_Units, By Mouth, Daily, # 90 tablet, 3 Refills, Maintenance, 08/16/19 15:51:00 EDT, [place], [place] -, 163, cm, 07/11/19 13:24:00 EST, [...]
--- OUTSIDE RECORDS SUMMARY | 2023-09-15 07:41 | XMS_ITS | Continuity of Care Document ---
Author Organization [facility] Address [address] [place] [id number]- Care Team Providers Care Sql Manager Name Role Phone Kwame Bolton Primary Care Physician [phone] [place] [facility] [place]): [place] 09/26/22 [facility] [address] [place] [id number] Attending Physician: Grecia Lima MD Admitting Physician: [...] 3Result Comment: dose 1 4Result Comment: [02/22/2017] [facility] [id number] 5Admin Note: flulaval vis given vis date 11/16/2011 6Admin Note: VIS GIVEN VIS DATE 12/24/2009 7Admin Note: VIS GIVEN 12/25/08 prydeinig 8Result Comment: Received at [facility] on [facility] [place] 9Admin Note: vis given 10Admin Note: vis given 11Result Comment: [01/03/2018 Uncharted] ERROR NOT GIVEN 12Result Comment: [id number] exp 06/2009 13Admin Note: vis given Medications [...] WITH FOOD, # 90 tablet, 3 Refills, [facility], 90, TAKE ONE TABLET BY MOUTH DAILY WITH FOOD, 163, cm, 09/26/21 13:20:00 EDT, Height Start Date: 12/15/21 Status: Ordered Biotene Moisturizing Mouth oral spray 1 sprays, By Mouth, 6 times a day, BIOTENE NAME BRAND MAY BE REQUIRED, # 240 mL, 1 Refills, Maintenance, 09/17/22 10:19:00 EDT, [facility] [id number], Partial fill upon patient request if the prescription is for a schedule II... Start Date: 09/17/22 Status: Ordered busPIRone 10 mg oral tablet 10 mg, 1, tablet, By Mouth, 3 times a day, for anxiety, # 90 tablet, Refills 0, Tot. Refills 0, Maintenance, 03/03/22 14:49:00 EDT, Route to Pharmacy Electronically, [facility] [id number], Partial fill upon patient request if... Start [...] mL, 1 Refills, Maintenance, 03/03/22 14:52:00 EDT, [facility] [id number], Partial fill uponpatient request if the prescription is for a schedu... Start Date: 03/03/22 Status: Ordered Comfort EZ Pen [place] 32 gauge x 5/32 Comfort EZ Pen [place] 32 gauge x 5/32 , See Instructions, # 50 Unknown, 11 Refills, USE DAILY WITHvictoza injection, 163, cm, 03/25/21 9:16:00 EST, Height Start Date: 04/01/21 Status: Ordered Comfort EZ Pen [place] 32 gauge x 5/32 Comfort EZ Pen [place] 32 gauge x 5/32 , See Instructions, # 50 Unknown, 0 Refills, USE DAILY WITH victoza injection, 163, cm, 12/18/20 9:01:00 EDT, Height Start Date: 02/05/21 Status: Ordered Comfort EZ Pen [place] 32 gauge x 5/32 Comfort EZ Pen [place] 32 gauge x 5/32 , See Instructions, # 50 Unknown, 11 Refills, Maintenance, USE DAILY WITH victoza injection, 06/04/22 11:52:00 EST, 164, cm, 06/02/22 16:10:00 EST, Height, 122,kg, 05/02/22 15:20:00 EST, Dry Weight Start Date: 06/04/22 Status: Ordered D3 1000 intl units (25 mcg) oral tablet 1 tablet, By Mouth, Daily, # 30 tablet, 5 Refills, 06/24/22 11:25:00 EST, [facility] [place], [place] - [id number], 164, cm, 06/02/22 16:10:00 EST, Height, 122, kg, 05/02/22 15:20:00 EST, Dry Weight Start Date: 06/24/22 Status: Ordered Daliresp 500 mcg oral tablet 1 tablet, By Mouth, Daily, # 30 tablet, 6 Refills, [facility], 163, cm, 09/26/21 13:20:00 EDT,Height Start Date: 11/14/21 Status: Ordered docusate sodium 100 mg oral capsule 1 capsule, By Mouth, Daily, # 60 each, 5 Refills, Maintenance, 02/18/22 11:21:00 EDT, [facility], 163, cm, 12/29/21 9:41:00 EDT, [...] tablet, 1 Refills, Maintenance, 08/18/22 11:20:00 EDT, [facility] [id number], please dispense in separate bottle., 164, cm, 07/21/22 8:59... Start Date: 08/18/22 Status: Ordered Flonase 50 mcg/inh nasal spray 1 sprays, Nares, Both, Daily, # 16 Gm, 0 Refills, Maintenance, 04/13/22 12:06:00 EST, [place] [id number], Partial fill upon patient request if the prescription is for a schedule II opioid drug., 1 sprays Nares, Both... Start Date: 04/13/22 Stop Date: 05/13/22 Status: Ordered furosemide 40 mg oral tablet 1, tablet, By Mouth, 2 times a day, # 60 tablet, Refills 5, Maintenance, 03/20/22 11:36:00 EDT, Route to Pharmacy Electronically, [facility], 163, cm, 03/03/22 9:51:00 EDT, Height Start Date: 03/20/22 Status: Ordered guaiFENesin 100 mg/5 mL oral liquid 20 mL = 400 mg, By Mouth, 2 times a day, for congestion, cough. with fluids, # 240 mL, 0 Refills, Maintenance, 04/14/21 8:42:00 EST, [facility] [id number], Partial fill upon patient request if the [...] 08/18/22 11:21:00 EDT, Route to Pharmacy Electronically, [facility] - [place], [place] - [id number], 1... Start Date: 08/18/22 Status: Ordered ibuprofen 800 mg oral tablet 1, tablet, By Mouth, Every 8 hours, PRN, TAKE WITH FOOD OR MILK, # 60 tablet, Refills 0, Maintenance, NEEDED FOR SEVERE PAIN, 02/18/22 11:21:00 EDT, Route to Pharmacy Electronically, [facility], 163, cm, 12/29/21 9:41:00 EDT, [...] 07/23/22 10:02:00 EST, Route to Pharmacy Electronically, [facility], 164, cm, 07/21/22 8:59:00 EST, Height, 122, kg, 05/02/22 15:20:00 EST, Dry Weight Start Date: 07/23/22 Status: Ordered magnesium gluconate 250 mg oral tablet 1 tablet = 250 mg, By Mouth, 2 times a day, # 60 tablet, 2 Refills, Maintenance, 09/22/22 17:27:00 EDT, [facility] [id number], Partial fill upon patient request if the [...] each, 0 Refills, Maintenance, 08/31/22 9:43:00 EDT, [facility] [id number], Partial fill upon patient request if the [...] each, 5 Refills, Maintenance, 09/16/22 8:19:00 EDT, [place], [place] - [id number], please stop victoza, 0.25 mg Subcutaneous Infusion Every week, 163, cm, 09/16/22 7:13:00 EDT, Height,... Start Date: 09/16/22 Status: Ordered portable oxygen concentrator portable oxygen concentrator, See Instructions, # 1 each, Refills 0, Tot. Refills 0, Maintenance, Dx severe COPD. Codes J44.9, R09.02, 01/31/20 16:26:00 EDT, Compound Start Date: 01/31/20 Status: Ordered Potassium Chloride (Skg-Cyrp-Tzp M20) 20 mEq oral tablet, extended release 1 tablet, By Mouth, Daily, # 30 tablet, 6 Refills, Maintenance, 05/25/22 17:29:00 EST, [facility], 164, cm, 05/02/22 15:20:00 EST, [...] tablet, 5 Refills, Maintenance, 08/18/22 11:22:00 EDT, [facility] [id number], please dispense in bubble pack. dose increase... Start Date: 08/18/22 Status: Ordered square orthopedic pillow with central square depression and surrounding bolster square orthopedic pillow with central square depression and surrounding bolster, See Instructions, # 1 each, Refills 0, Tot. Refills 0, Maintenance, Product number [id number] Dx codes: M54.2 Duration: lifetime, 07/21/22 14:25:00 EST, Supply Start Date: 07/21/22 Status: Ordered traZODone 150 mg oral tablet 3 tablet, By Mouth, Daily at bedtime, # 270 tablet, 6 Refills, [facility], 163, cm, 09/26/21 13:20:00 EDT, Height Start Date: 11/14/21 Status: Ordered Trelegy Ellipta 200 mcg-62.5 mcg-25 mcg/inh inhalation powder 1 puffs, Inhalation, Daily, at the same time every day, # 9 each, 3 Refills, Maintenance, 08/31/22 9:41:00 EDT, Powder, [facility] [id number], Partial fill upon patient request if the prescription is for a schedule II opioid d... Start Date: 08/31/22 Status: Ordered value series power lift chair [id number] value series power lift chair [id number], See Instructions, # 1 each, Refills 0, Tot. Refills 0, Maintenance, Diagnosis codes: G89.29, M19.90, J44.9, Z74.09, 01/30/20 9:31:00 EDT, Supply Start Date: 01/30/20 Status: Ordered varenicline 1mg tablet 1 tablet, By Mouth, 2 times a day, # 56 tablet, 5 Refills, Physician Stop 06/24/23 11:28:00 EST, 06/24/22 11:30:00 EST, [facility] [id number], 164, cm, 06/02/22 16:10:00 EST,Height, 122, kg, 05/02/22 15:20:00 EST, Dry Weight Start Date: 06/24/22 Stop Date: 06/24/23 Status: Ordered Ventolin HFA 108 mcg/inh inhalation aerosol with adapter 2 puffs, Inhalation, 4 times a day, PRN Wheezing/Shortness of Breath, 90 days supply, # 1 each, 5 Refills, Maintenance, 04/14/22 16:26:00 EST, [facility] [id number], 163, cm,04/13/22 11:52:00 EST, Height Start Date: 04/14/22 Status: Ordered Victoza 18 mg/3 mL subcutaneous solution = 1.2 mg, Subcutaneous Infusion, Daily, # 15 mL, 11 Refills, Maintenance, 06/02/22 16:53:00 EST, [facility] [id number], Partial fill upon patient request if the [...] 4, 5 Confirmed Active BHN/CCA/CP-Jo Ann Harvey [phone]/Health retirement active care coordination Confirmed Active Severe [...] Care Team Personnel Name: Kwame Bolton Position: [facility] PCO Associate Professional Member Role: PCP Address: Address: [address] [place] [address] [place] [address]- Name: Perri Perry RN Position: [facility] RN Member Role: Primary Care Nurse Name: Alicia Vallecillo RN Position: [facility] RN Member Role: Primary Care Nurse Name: Maureen Smith RN Position: [facility] RN Member Role: Primary Care Nurse Name: Sultana Broussard RN Position: [facility] RN Member Role: Primary Care Nurse Name: Abigail Dior RN Position: [facility] RN Member Role: Primary Care Nurse Name: Ivette Carter RN Position: [facility] RN Member Role: Primary Care Nurse Name: Rukhsana Matthews RN Position: [facility] Bowstring Maker Member Role: Primary Care Nurse Care Team Related Persons Name: TANA MENDOZA Address: [place] [address] Name: MARIA TERESA UMAÑA Address: home [address] [place] [address] Name: ANG GAFFNEY Address: home [address] [place] [address] Name: CHILO AHMADI Address: home [address] [place] [id number]
--- OUTSIDE RECORDS SUMMARY | 2023-09-15 07:41 | XMS_ITS | Continuity of Care Document ---
Author Organization [facility] ter Address [address] [place] [address]- Care Team Providers Care Plant Safety Engineer Name Role Phone Kwame Bolton Primary Care Physician Encounter [facility] R [id number] Date(s): 09/12/22 - 10/18/[address] [address] Attending Physician: Milton Cantu MD Admitting Physician: [...] 3Result Comment: dose 1 4Result Comment: [02/22/2017] [facility] [place] [id number] 5Admin Note: flulaval vis given vis date 11/16/2011 6Admin Note: VIS GIVEN VIS DATE 12/24/2009 7Admin Note: VIS GIVEN 12/25/08 kenyan 8Result Comment: Received at [facility] on [facility] in [place] 9Admin Note: vis given 10Admin Note: vis given 11Result Comment: [01/03/2018 Uncharted] ERROR NOT GIVEN 12Result Comment: [id number] exp 06/2009 13Admin Note: vis given Medications [...] WITH FOOD, # 90 tablet, 3 Refills, [facility], 90, TAKE ONE TABLET BY MOUTH DAILY WITH FOOD, 163, cm, 09/26/21 13:20:00 EDT, Height Start Date: 12/15/21 Status: Ordered Biotene Moisturizing Mouth oral spray 1 sprays, By Mouth, 6 times a day, BIOTENE NAME BRAND MAY BE REQUIRED, # 240 mL, 1 Refills, Maintenance, 09/17/22 10:19:00 EDT, [facility] [id number], Partial fill upon patient request if the prescription is for a schedule II... Start Date: 09/17/22 Status: Ordered busPIRone 10 mg oral tablet 10 mg, 1, tablet, By Mouth, 3 times a day, for anxiety, # 90 tablet, Refills 0, Tot. Refills 0, Maintenance, 03/03/22 14:49:00 EDT, Route to Pharmacy Electronically, [facility] [id number], Partial fill upon patient request if... Start [...] mL, 1 Refills, Maintenance, 03/03/22 14:52:00 EDT, [facility] [id number], Partial fill uponpatient request if the prescription is for a schedu... Start Date: 03/03/22 Status: Ordered Comfort EZ Pen [place] 32 gauge x 5/32 Comfort EZ Pen [place] 32 gauge x 5/32 , See Instructions, # 50 Unknown, 11 Refills, USE DAILY WITHvictoza injection, 163, cm, 03/25/21 9:16:00 EST, Height Start Date: 04/01/21 Status: Ordered Comfort EZ Pen [place] 32 gauge x 5/32 Comfort EZ Pen [place] 32 gauge x 5/32 , See Instructions, # 50 Unknown, 0 Refills, USE DAILY WITH victoza injection, 163, cm, 12/18/20 9:01:00 EDT, Height Start Date: 02/05/21 Status: Ordered Comfort EZ Pen [place] 32 gauge x 5/32 Comfort EZ Pen [place] 32 gauge x 5/32 , See Instructions, # 50 Unknown, 11 Refills, Maintenance, USE DAILY WITH victoza injection, 06/04/22 11:52:00 EST, 164, cm, 06/02/22 16:10:00 EST, Height, 122,kg, 05/02/22 15:20:00 EST, Dry Weight Start Date: 06/04/22 Status: Ordered D3 1000 intl units (25 mcg) oral tablet 1 tablet, By Mouth, Daily, # 30 tablet, 5 Refills, 06/24/22 11:25:00 EST, [facility] [place], [place] - [id number], 164, cm, 06/02/22 16:10:00 EST, Height, 122, kg, 05/02/22 15:20:00 EST, Dry Weight Start Date: 06/24/22 Status: Ordered Daliresp 500 mcg oral tablet 1 tablet, By Mouth, Daily, # 30 tablet, 6 Refills, [facility], 163, cm, 09/26/21 13:20:00 EDT,Height Start Date: 11/14/21 Status: Ordered docusate sodium 100 mg oral capsule 1 capsule, By Mouth, Daily, # 60 each, 5 Refills, Maintenance, 02/18/22 11:21:00 EDT, [facility], 163, cm, 12/29/21 9:41:00 EDT, [...] tablet, 1 Refills, Maintenance, 08/18/22 11:20:00 EDT, [facility], [facility] [id number], please dispense in separate bottle., 164, cm, 07/21/22 8:59... Start Date: 08/18/22 Status: Ordered Flonase 50 mcg/inh nasal spray 1 sprays, Nares, Both, Daily, # 16 Gm, 0 Refills, Maintenance, 04/13/22 12:06:00 EST, [place], [facility] [id number], Partial fill upon patient request if the prescription is for a schedule II opioid drug., 1 sprays Nares, Both... Start Date: 04/13/22 Stop Date: 05/13/22 Status: Ordered furosemide 40 mg oral tablet 1, tablet, By Mouth, 2 times a day, # 60 tablet, Refills 5, Maintenance, 03/20/22 11:36:00 EDT, Route to Pharmacy Electronically, [facility], 163, cm, 03/03/22 9:51:00 EDT, Height Start Date: 03/20/22 Status: Ordered guaiFENesin 100 mg/5 mL oral liquid 20 mL = 400 mg, By Mouth, 2 times a day, for congestion, cough. with fluids, # 240 mL, 0 Refills, Maintenance, 04/14/21 8:42:00 EST, [facility] [id number], Partial fill upon patient request if the [...] 08/18/22 11:21:00 EDT, Route to Pharmacy Electronically, [facility] [place], [place] - [id number], 1... Start Date: 08/18/22 Status: Ordered ibuprofen 800 mg oral tablet 1, tablet, By Mouth, Every 8 hours, PRN, TAKE WITH FOOD OR MILK, # 60 tablet, Refills 0, Maintenance, NEEDED FOR SEVERE PAIN, 02/18/22 11:21:00 EDT, Route to Pharmacy Electronically, [facility], 163, cm, 12/29/21 9:41:00 EDT, [...] 07/23/22 10:02:00 EST, Route to Pharmacy Electronically, [facility], 164, cm, 07/21/22 8:59:00 EST, Height, 122, kg, 05/02/22 15:20:00 EST, Dry Weight Start Date: 07/23/22 Status: Ordered magnesium gluconate 250 mg oral tablet 1 tablet = 250 mg, By Mouth, 2 times a day, # 60 tablet, 2 Refills, Maintenance, 09/22/22 17:27:00 EDT, [place], [place] - [id number], Partial fill upon patient request if the [...] each, 0 Refills, Maintenance, 08/31/22 9:43:00 EDT, [place], [place] - [id number], Partial fill upon patient request if the [...] each, 5 Refills, Maintenance, 09/16/22 8:19:00 EDT, [place], [place] - [id number], please stop victoza, 0.25 mg Subcutaneous Infusion Every week, 163, cm, 09/16/22 7:13:00 EDT, Height,... Start Date: 09/16/22 Status: Ordered portable oxygen concentrator portable oxygen concentrator, See Instructions, # 1 each, Refills 0, Tot. Refills 0, Maintenance, Dx severe COPD. Codes J44.9, R09.02, 01/31/20 16:26:00 EDT, Compound Start Date: 01/31/20 Status: Ordered Potassium Chloride (Iic-Akgk-Vul M20) 20 mEq oral tablet, extended release 1 tablet, By Mouth, Daily, # 30 tablet, 6 Refills, Maintenance, 05/25/22 17:29:00 EST, [facility], 164, cm, 05/02/22 15:20:00 EST, [...] tablet, 5 Refills, Maintenance, 08/18/22 11:22:00 EDT, [place], [place] - [id number], please dispense in bubble pack. dose increase... Start Date: 08/18/22 Status: Ordered square orthopedic pillow with central square depression and surrounding bolster square orthopedic pillow with central square depression and surrounding bolster, See Instructions, # 1 each, Refills 0, Tot. Refills 0, Maintenance, Product number [id number] Dx codes: M54.2 Duration: lifetime, 07/21/22 14:25:00 EST, Supply Start Date: 07/21/22 Status: Ordered traZODone 150 mg oral tablet 3 tablet, By Mouth, Daily at bedtime, # 270 tablet, 6 Refills, [facility], 163, cm, 09/26/21 13:20:00 EDT, Height Start Date: 11/14/21 Status: Ordered Trelegy Ellipta 200 mcg-62.5 mcg-25 mcg/inh inhalation powder 1 puffs, Inhalation, Daily, at the same time every day, # 9 each, 3 Refills, Maintenance, 08/31/22 9:41:00 EDT, Powder, [place], [place] - [id number], Partial fill upon patient request if the prescription is for a schedule II opioid d... Start Date: 08/31/22 Status: Ordered value series power lift chair [id number] value series power lift chair [id number], See Instructions, # 1 each, Refills 0, Tot. Refills 0, Maintenance, Diagnosis codes: G89.29, M19.90, J44.9, Z74.09, 01/30/20 9:31:00 EDT, Supply Start Date: 01/30/20 Status: Ordered varenicline 1mg tablet 1 tablet, By Mouth, 2 times a day, # 56 tablet, 5 Refills, Physician Stop 06/24/23 11:28:00 EST, 06/24/22 11:30:00 EST, [facility] [id number], 164, cm, 06/02/22 16:10:00 EST,Height, 122, kg, 05/02/22 15:20:00 EST, Dry Weight Start Date: 06/24/22 Stop Date: 06/24/23 Status: Ordered Ventolin HFA 108 mcg/inh inhalation aerosol with adapter 2 puffs, Inhalation, 4 times a day, PRN Wheezing/Shortness of Breath, 90 days supply, # 1 each, 5 Refills, Maintenance, 04/14/22 16:26:00 EST, [facility] [id number], 163, cm,04/13/22 11:52:00 EST, Height Start Date: 04/14/22 Status: Ordered Victoza 18 mg/3 mL subcutaneous solution = 1.2 mg, Subcutaneous Infusion, Daily, # 15 mL, 11 Refills, Maintenance, 06/02/22 16:53:00 EST, [facility] [id number], Partial fill upon patient request if the [...] List Condition Confirmation Course Effective Dates Status [facility] at Informant Adjustment Disorder with Mixed [...] 4, 5 Confirmed Active BHN/CCA/CP-Jo Ann Harvey [phone]/Health chcf active care coordination Confirmed Active Severe obesity [...] Bolton Position: [facility] PCO Associate Professional Member Role: PCP Address: Address: [address] [place] [address] [place] [address]- Name: Perri Perry RN Position: [facility] RN Member Role: Primary Care Nurse Name: Alicia Vallecillo RN Position: [facility] RN Member Role: Primary Care Nurse Name: Maureen Smith RN Position: [facility] RN Member Role: Primary Care Nurse Name: Sultana Broussard RN Position: [facility] RN Member Role: Primary Care Nurse Name: Abigail Dior RN Position: [facility] RN Member Role: Primary Care Nurse Name: Ivette Carter RN Position: [facility] RN Member Role: Primary Care Nurse Name: Rukhsana Matthews RN Position: [facility] Hospital Tread Builder Member Role: Primary Care Nurse Care Team Related Persons Name: TANA MENDOZA Address: [place] [address] Name: MARIA TERESA UMAÑA Address: home [address] [place] [address] Name: AGN GAFFNEY Address: home [address] [place] [address] Name: CHILO AHMADI Address: home [address] [place] [address] [address] [place] [address]
--- OUTSIDE RECORDS SUMMARY | 2023-09-15 07:41 | XMS_ITS | Continuity of Care Document ---
Author Organization [facility] ter Address [address] [place] [address]- Care Team Providers Care Cashier Name Role Phone Kwame Bolton Primary Care Physician [phone] Encounter [facility] Date(s): 06/19/19 - 06/19/[address] [address]- [facility] Attending Physician: Kwame Bolton Allergies, Adverse Reactions, [...] Vaccine (oldterm) 08/08/06 Given 1Result Comment: [02/22/2017] [facility] [place] [id number] 2Admin Note: flulaval vis given vis date 11/16/2011 3Admin Note: VIS GIVEN VIS DATE 12/24/2009 4Admin Note: VIS GIVEN 12/25/08 faroese 5Result Comment: [01/03/2018 Uncharted] ERROR NOT GIVEN 6Result Comment: [id number] exp 06/2009 7Admin Note: vis given 8Admin [...] 05/2018, # 120 tablet, 2 Refills, Maintenance, 05/03/19 11:22:00 EST, [facility]/pharmacy #[id number], 163, cm, 04/24/19 13:17:00 EST, Height,114, kg, 04/19/18 23:58:00 EST, Dry Weight Start Date: 05/03/19 Stop Date: 08/01/19 Status: Ordered Daliresp 500 mcg oral tablet [...] Maintenance, 05/01/1910:28:45 EST, Route to Pharmacy Electronically, [facility], 163, cm, 04/24/19 13:17:53 EST, Height, 114, kg, 04/19/18 23:58:35... Start Date: 05/01/19 Status: Ordered Flonase 50 mcg/inh nasal spray [...] 05/01/19 17:32:03 EST, Route to Pharmacy Electronically, [facility], 163, cm, 04/24/19 13:17:53 EST, Height, 114, [...] 03/24/19 10:42:36 EST, Route to Pharmacy Electronically, [id number], [facility] Start Date: 03/24/19 Status: Ordered INCONCTINENCE LINERS [...] tablet, 5 Refills, Maintenance, 05/18/19 15:52:00 EST, [facility]/pharmacy #[id number], 163, cm, 04/24/19 13:17:00 EST, Height, 114, kg, 04/19/18 23:58:00 EST, Dry Weight Start Date: 05/18/19 Status: Ordered potassium chloride 20 mEq oral tablet, extended release 1 tablet = 20 mEq, By Mouth, 3 times a day, PLEASE DISPENSE SINDHU. THANK YOU!, # 15 tablet, 0 Refills, Maintenance, 03/27/19 17:17:36 EST Start Date: 03/27/19 Stop Date: 04/01/19 Status: Ordered tiZANidine 4 mg oral capsule [...]
--- OUTSIDE RECORDS SUMMARY | 2023-09-15 07:41 | XMS_ITS | Continuity of Care Document ---
Author Organization [facility] Address [address] [place] [address]- Care Team Providers Care Odd Ticket Clerk Name Role Phone Kwame Bolton Primary Care Physician Encounter [facility] Date(s): 11/20/21 - 01/01/[address] [address] Discharge Disposition: A-D/C Home Attending Physician: Kwame Bolton Admitting Physician: Kwame Bolton Referring Physician: Kwaem Bolton Allergies, Adverse Reactions, Alerts Substance Reaction [...] 03/08/15 Give n influenza virus vaccine, inactivated 10/14/14 Give n influenza virus vaccine, inactivated 07/20/13 [...] Comment: dose 1 3Result Comment: Received at [facility] [place] 4Admin Note: vis given 5Admin Note: vis given 6Result Comment: [02/22/2017] [facility] [id number] 7Admin Note: flulaval vis given vis date 11/16/2011 8Admin Note: VIS GIVEN VIS DATE 12/24/2009 9Admin Note: VIS GIVEN 12/25/08 est[place] 10Result Comment: [01/03/2018 Uncharted] ERROR NOT GIVEN 11Result Comment: [id number] exp 06/2009 12Admin Note: vis given Medications [...] WITH FOOD, # 90 tablet, 3 Refills, [facility], 90, TAKE ONE TABLET BY MOUTH DAILY WITH FOOD, 163, cm, 09/26/21 13:20:00 EDT, Height Start Date: 12/15/21 Status: Ordered Breo Ellipta 200 mcg-25 mcg/inh inhalation powder 1 puffs, Inhalation, Daily, rinse mouth and throat after use, # 60 Unknown, 5 Refills, [facility], 30, INHALE 1 PUFF BY [...] Date: 01/06/19 Status: Ordered Comfort EZ Pen [place] 32 gauge x 5/32 Comfort EZ Pen [place] 32 gauge x 5/32 , See Instructions, # 50 Unknown, 11 Refills, USE DAILY WITHvictoza injection, 163, cm, 03/25/21 9:16:00 EST, Height Start Date: 04/01/21 Status: Ordered Comfort EZ Pen [place] 32 gauge x 5/32 Comfort EZ Pen [place] 32 gauge x 5/32 , See Instructions, # 50 Unknown, 0 Refills, USE DAILY WITH victoza injection, 163, cm, 12/18/20 9:01:00 EDT, Height Start Date: 02/05/21 Status: Ordered D3 1000 intl units (25 mcg) oral tablet 1 tablet, By Mouth, Daily, # 30 tablet, 5 Refills, [facility], 163, cm, 09/26/21 13:20:00 EDT,Height Start Date: 12/22/21 Status: Ordered Daliresp 500 mcg oral tablet 1 tablet, By Mouth, Daily, # 30 tablet, 6 Refills, [facility], 163, cm, 09/26/21 13:20:00 EDT,Height Start Date: 11/14/21 Status: Ordered docusate sodium 100 mg oral capsule 1 capsule, By Mouth, Daily, # 60 each, 5 Refills, Maintenance, 04/04/21 11:02:00 EST, [facility] - [place], [place] - [id number], 163, cm, 03/25/21 9:16:00 EST, Height Start [...] tablet, Refills 4, Route to Pharmacy Electronically, [facility], 163, cm, 09/26/21 13:20:00 EDT, Height Start Date: 11/14/21 Status: Ordered guaiFENesin 100 mg/5 mL oral liquid 20 mL = 400 mg, By Mouth, 2 times a day, for congestion, cough. with fluids, # 240 mL, 0 Refills, Maintenance, 04/14/21 8:42:00 EST, [place], [place] - [id number], Partial fill upon patient request if the [...] NEEDEDFOR SEVERE PAIN, Route to Pharmacy Electronically, [facility], 163, cm, 03/25/21 9:16:00 EST, [...] tablet, Refills 3, Route to Pharmacy Electronically, [facility], 163, cm, 09/26/21 13:20:00 [...] 12/29/21 10:13:00 EDT, Route to Pharmacy Electronically, [place], [place] - [id number], s... Start Date: 12/29/21 Stop Date: 01/28/22 [...] Start Date: 01/31/20 Status: Ordered Potassium Chloride (Yvn-Bpbw-Wcl M20) 20 mEq oral tablet, extended release 1 tablet, By Mouth, Daily, # 30 tablet, 6 Refills, [facility], 163, cm, 09/26/21 13:20:00 EDT,Height Start Date: [...] 0, Tot. Refills 0, Maintenance, Product number [id number] Dx codes: M54.2 Duration: lifetime, 02/27/21 19:03:00 EDT, Supply Start Date: 02/27/21 Status: Ordered traZODone 150 mg oral tablet 3 tablet, By Mouth, Daily at bedtime, # 270 tablet, 6 Refills, [facility], 163, cm, 09/26/21 13:20:00 EDT, Height Start Date: 11/14/21 Status: Ordered value series power lift chair [id number] value series power lift chair [id number], See Instructions, # 1 each, Refills 0, Tot. Refills 0, Maintenance, Diagnosis codes: G89.29, M19.90, J44.9, Z74.09, 01/30/20 9:31:00 EDT, Supply Start Date: 01/30/20 Status: Ordered varenicline 1mg tablet 1 tablet, By Mouth, 2 times a day, # 56 tablet, 5 Refills, [facility], 163, cm, 09/26/21 13:20:00 EDT, Height Start Date: 12/22/21 Status: Ordered Ventolin HFA 108 mcg/inh inhalation aerosol with adapter 2 puffs, Inhalation, 4 times a day, PRN Wheezing/Shortness of Breath, 90 days supply, # 1 each, 5 Refills, Maintenance, 10/07/20 6:45:00 EDT, [facility] [id number], 163, cm, 09/24/20 13:25:00 EDT, Height Start Date: 10/07/20 Status: Ordered Victoza 18 mg/3 mL subcutaneous solution = 1.2 mg, Subcutaneous Infusion, Daily, dose increase to 1.2mg qd 04/29/21., # 15 mL, 5 Refills, Maintenance, 04/29/21 8:26:00 EST, [place], [place] - [id number], Partial fill upon patient request if the [...] apnea(Confirmed) 4, 5 Active BHN/CCA/CP-Jo Ann Harvey [phone]/Health fpc active care coordination(Confirmed) Active Severe obesity(Confirmed) Active [...]
--- OUTSIDE RECORDS SUMMARY | 2023-09-15 07:41 | XMS_ITS | Continuity of Care Document ---
Author Organization [facility] Address [address] [place] [address]- Care Team Providers Care Operations/Dispatch Name Role Phone Kwame Bolton Primary Care Physician [phone] [facility]counter [facility] Date[facility]s): 05/20/23 - 07/23/23 [facility] [address] [place] [address]- Attending Physician: Not on Staff, Attending MD [...] vaccine, inactivated 5 02/26/09 Gi cecile SARS-CoV-2(COVID-19)mRNA-LNP vac([id number]) 02/25/23 Recorded SARS-CoV-2 (COVID-19) mRNA-1273 vaccine 6 [...] 1Result Comment: [02/16/2023] Given at [facility] Averecord can be obtained from [facility] 2Result Comment: [02/22/2017] [facility] [id number] 3Admin Note: flulaval vis given vis date 11/16/2011 4Admin Note: VIS GIVEN VIS DATE 12/24/2009 5Admin Note: VIS GIVEN 12/25/08 ecuadorean 6Result Comment: new booster 7Result Comment: dose 2 8Result Comment: dose 1 9Result Comment: Received at [facility] on [facility] in [place] 10Admin Note: vis given 11Admin Note: vis given 12Result Comment: [id number] exp 06/2009 13Admin Note: vis given Medications [...] EST, Compound Start Date: 07/12/19 Status: Ordered [place] Saline 0.65% nasal gel 1 sprays, Nares, Both, 4 times a day, # 22.5 Gm, 1 Refills, Maintenance, 04/12/23 8:20:00 EST, [facility] [id number], Partial fill upon patient request if the prescription isfor a schedule II opioid drug., 1 sprays Nares, Bot... Start Date: 04/12/23 Status: Ordered B-Complex with B-12 oral tablet See Instructions, TAKE 1 TABLET BY MOUTH ONCE DAILY WITH FOOD, # 90 tablet, 1 Refills, Maintenance,05/28/23 17:52:00 EST, [facility] [id number], 90, TAKE 1 TABLET BY MOUTH ONCE DAILY WITH FOOD, 163, cm, 05/06/23 8:47:00 EST,... Start Date: 05/28/23 Status: Ordered Biotene Moisturizing Mouth oral spray 1 sprays, By Mouth, 6 times a day, BIOTENE NAME BRAND MAY BE REQUIRED, # 240 mL, 5 Refills, Maintenance, 11/18/22 8:47:00 EDT, [facility] [id number], Partial fill upon patient request if the prescription is for a schedule II o... Start Date: 11/18/22 Status: Ordered Cane See Instructions, # 1 each, Maintenance, DX LEFT KNEE PAIN /ACL TEAR /ARTHRITIS DX CODE M25.562 HT 163 CM WT 123 KG DURATION -LIETIME PATIENTS CANE BROLUANNE, 01/06/19 8:36:49 EDT, Compound Start Date: 01/06/19 Status: Ordered Comfort EZ Pen [place] 32 gauge x Comfort EZ Pen [place] 32 gauge x , See Instructions, # 50 Unknown, 11 Refills, Maintenance, USE DAILY WITH victoza injection, 06/04/22 11:52:00 EST, 164, cm, 06/02/22 16:10:00 EST, Height, 122,kg, 05/02/22 15:20:00 EST, Dry Weight Start Date: 06/04/22 Status: Ordered DEKAs Bariatric oral tablet, chewable See Instructions, TAKE 1 TABLET PO DAILY X1 YEAR SP BARIATRIC SURGERY, # 60 each, 5 Refills, Maintenance, 03/17/23 9:55:00 EDT, [facility] [id number], Partial fill upon patient request if the prescription is for a schedule II... Start Date: 03/17/23 Status: Ordered docusate sodium 100 mg oral capsule 1 capsule, By Mouth, 2 times a day, # 60 each, 5 Refills, Maintenance, 05/14/23 10:27:00 EST, [facility], 163, cm, 05/06/23 8:47:00 EST, Height, 122, kg, 05/02/22 15:20:00 EST, Dry Weight Start Date: 05/14/23 Status: Ordered Ear Pain MD 4% otic liquid 2 drops, Ears, Both, 3 times a day, PRN Pain , Moderate, # 12.5 mL, 0 Refills, Maintenance, 01/04/23 21:24:00 EDT, [facility] [id number], Partial fill upon patient request ifthe prescription [...] tablet, 5 Refills, Maintenance, 05/27/23 18:43:00 EST, [facility], 163, cm, 05/06/23 8:47:00 EST, Height, 122, kg, 05/02/22 15:20:00 EST, Dry Weight Start Date: 05/27/23 Status: Ordered fluticasone 50 mcg/inh nasal spray 1 sprays, Nares, Both, Daily, # 16 Gm, 2 Refills, Maintenance, 07/13/23 18:31:00 EST, [facility] - [place], [place] - [id number], Partial fill upon patient request if the prescription is for a schedule II opioid drug., 1 sprays Nares, Both Daily,... Start Date: 07/13/23 Status: Ordered furosemide 40 mg oral tablet 1, tablet, By Mouth, 2 times a day, # 60 tablet, Refills 5, Maintenance, 04/13/23 13:49:00 EST, Route to Pharmacy Electronically, [facility], 163, cm, 04/12/23 8:10:00 EST, Height, [...] 02/10/23 10:21:00 EDT, Route to Pharmacy Electronically, [facility], 163, cm, 01/20/23 8:13:00 EDT, Height, 122, kg, 05/02/22 15:20:00 EST, Dry Weight Start Date: 02/10/23 Status: Ordered Mag-G 500 mg oral tablet 0.5 tablet, By Mouth, 2 times a day, # 30 tablet, 2 Refills, Maintenance, 02/15/23 18:46:00 EDT, [facility], 163, cm, 01/20/23 8:13:00 EDT, Height, 122, kg, 05/02/22 15:20:00 EST, Dry Weight Start Date: 02/15/23 Status: Ordered Nicotrol Inhaler 10 mg inhalation device See Instructions, To use with nicotine cartridges in place of cigarettes, # 3 each, 0 Refills, Maintenance, 08/31/22 9:43:00 EDT, [facility] - [place], [place] - [id number], Partial fill upon patient request if the [...] Start Date: 01/31/20 Status: Ordered Potassium Chloride (Kya-Ryen-Rzn M20) 20 mEq oral tablet, extended release [...] tablet, 5 Refills, Maintenance, 07/13/23 18:30:00 EST, [facility] [id number], please dispense in bubble pack. dose increase... Start Date: 07/13/23 Status: Ordered square orthopedic pillow with central square depression and surrounding bolster square orthopedic pillow with central square depression and surrounding bolster, See Instructions, # 1 each, Refills 0, Tot. Refills 0, Maintenance, Product number [id number] Dx codes: M54.2 Duration: lifetime, 07/21/22 14:25:00 EST, Supply Start Date: 07/21/22 Status: Ordered traZODone 150 mg oral tablet 3 tablet, By Mouth, Daily at bedtime, # 270 tablet, 6 Refills, 10/26/22 10:18:00 EDT, [facility] [id number], 163, cm, 10/14/22 8:43:00 EDT, Height, 122, kg, 05/02/22 15:20:00EST, Dry Weight Start Date: 10/26/22 Status: Ordered Trelegy Ellipta 200 mcg-62.5 mcg-25 mcg/inh inhalation powder 1 puffs, Inhalation, Daily, at the same time every day, # 9 each, 3 Refills, Maintenance, 08/31/22 9:41:00 EDT, Powder, [facility] - [place], [place] - [id number], Partial fill upon patient request if the prescription is for a schedule II opioid d... Start Date: 08/31/22 Status: Ordered value series power lift chair [id number] value series power lift chair [id number], See Instructions, # 1 each, Refills 0, [...] 4, 5 Confirmed Active BHN/CCA/CP-Jo Ann Harvey [phone]/Health intermediate active care coordination Confirmed Active BHN/CCA/LCC Lisa Gutierrez [phone]/Health intermediate active care coordination Confirmed Active Severe [...] Care Team Personnel Name: Kwame Bolton Position: [facility] PCO Associate Professional Member Role: PCP Address: Address: [address] [place] [address] [place] [address]- Name: Perri Perry RN Position: [facility] RN Member Role: Primary Care Nurse Name: Alicia Vallecillo RN Position: [facility] RN Member Role: Primary Care Nurse Name: Maureen Smith RN Position: [facility] RN Member Role: Primary Care Nurse Name: Sultana Broussard RN Position: [facility] RN Member Role: Primary Care Nurse Name: Abigail Dior RN Position: [facility] RN Member Role: Primary Care Nurse Name: Ivette Carter RN Position: [facility] RN Member Role: Primary Care Nurse Name: Rukhsana Matthews RN Position: [facility] Sexologist Member Role: Primary Care Nurse Care Team Related Persons Name: TANA MENDOZA Address: [place] [address] Name: MARIA TERESA UMAÑA Address: home [address] [place] [address] Name: ANG GAFFNEY Address: home [address] [place] [address] Name: CHILO AHMADI Address: home [address] [address]
--- OUTSIDE RECORDS SUMMARY | 2023-09-15 07:41 | XMS_ITS | Continuity of Care Document ---
Author Organization [facility] Address [address] [facility], [address] Floor, [address] [place] [address]- Care Team Providers Care Header Boss Name Role Phone Kwame Bolton Primary Care Physician [facility] Date[facility]s): 05/20/20 - 06/19/20 [facility] [address], [address], [address] [place] [address]- Allergies, Adverse Reactions, Alerts Substance Reaction Severity [...] (oldterm) 08/08/06 Given 1Result Comment: Received at [facility] on [facility] in [place] 2Admin Note: vis given 3Admin Note: vis given 4Result Comment: [02/22/2017] [facility] [id number] 5Admin Note: flulaval vis given vis date 11/16/2011 6Admin Note: VIS GIVEN VIS DATE 12/24/2009 7Admin Note: VIS GIVEN 12/25/08 vietnamese 8Result Comment: [01/03/2018 Uncharted] ERROR NOT GIVEN 9Result Comment: [id number] exp 06/2009 10Admin Note: vis given Medications [...] capsule, 0 Refills, Maintenance, 03/05/20 14:41:00 EDT, [facility]/pharmacy #[id number], 1 capsule By Mouth Daily,x14 days, 163, cm, 03/05/20 13:58:00 EDT, Height, 114, kg, 04/19/18 23:58:00 EST, Dry Weight Start Date: 03/05/20 Stop Date: 03/19/20 Status: Ordered Biotene Moisturizing Mouth oral spray 1 sprays, By Mouth, 6 times a day, please dispense 2 bottles per month., # 2 each, 5 Refills, Maintenance, 06/11/20 11:38:00 EST, [facility] [id number], 1 sprays By Mouth 6 times a day,Instr:please dispense 2 bottles per month... Start Date: 06/11/20 Status: Ordered Breo Ellipta 200 mcg-25 mcg/inh inhalation powder 1 puffs, Inhalation, Daily, Rinse mouth well after each use, # 1 each, 5 Refills, Maintenance, 08/16/19 15:52:00 EDT, Powder, [place], [place] -, 1 puffs Inhalation Daily,Instr:[place] well after each use, 163, cm, 07/11/19 13:24:... Start Date: 08/16/19 Status: Ordered Breo Ellipta 200 mcg-25 mcg/inh inhalation powder See Instructions, INHALE 1 PUFF BY MOUTH INTO THE lungs DAILY. rinse mouth and throat after use, # 60 Unknown, 11 Refills, 03/27/20 10:56:00 EST, [facility] [id number], 30, INHALE 1 PUFF BY MOUTH INTO [...] tablet, 3 Refills, Maintenance, 03/27/20 10:55:00 EST, [facility] [id number], 163, cm, 03/05/20 13:58:00 EDT, Height, 114, kg, 04/19/18 23:58:00 EST, Dry Weight Start Date: 03/27/20 Status: Ordered clonazePAM 0.5 mg oral tablet 2 tablet = 1 mg, By Mouth, 2 times a day, # 120 tablet, 2 Refills, Maintenance, 03/27/20 10:57:00 EST, [facility] [id number], 163, cm, 03/05/20 13:58:00 EDT, Height, 114, kg,04/19/18 23:58:00 EST, Dry Weight Start Date: 03/27/20 Stop Date: 06/25/20 Status: Ordered Daliresp 500 mcg oral tablet See Instructions, 1 tablet By Mouth Daily, # 30 each, 6 Refills, Maintenance, 08/16/19 15:51:00 EDT, [place], [place] -, 163, cm, 07/11/19 13:24:00 EST, Height, 114, kg, 04/19/18 23:58:00 EST, Dry Weight Start Date: 08/16/19 Status: Ordered Daliresp 500 mcg oral tablet See Instructions, TAKE ONE TABLET BY MOUTH DAILY, # 30 tablet, 6 Refills, Maintenance, [facility], 163, cm, 03/05/20 13:58:00 EDT, Height, [...] 12/15/19 10:10:00 EDT, Route to Pharmacy Electronically, [place], [place] - [id number], 163, cm, 07/11/19 13:24:00 EST, Height, 114, kg... Start Date: 12/15/19 Status: Ordered docusate sodium 100 mg oral capsule See Instructions, TAKE ONE CAPSULE BY MOUTH 2 (two) times a day, # 60 capsule, 5 Refills, 03/27/20 10:56:00 EST, [place], [place] - [id number], 163, cm, 03/05/20 13:58:00 EDT, Height, 114, [...] Gm, 5 Refills, Maintenance, 08/16/19 15:53:00 EDT, [place], [place] -, 1 sprays Nares, Both 2 times a day, 163, cm, 07/11/19 13:24:00 EST, Height, 114, kg, 04/19/18 23:58:00 EST, Dry Weight Start Date: 08/16/19 Status: Ordered furosemide 40 mg oral tablet 40 mg, 1, tablet, By Mouth, 2 times a day, # 60 tablet, Refills 3, Tot. Refills 3, Maintenance, 03/27/20 10:58:00 EST, Route to Pharmacy Electronically, [place], [place] - [id number], 163, cm, 03/05/20 13:58:00 EDT, Height, 114, kg, 1... Start Date: 03/27/20 Stop Date: 07/25/20 Status: Ordered guaiFENesin 100 mg/5 mL oral liquid 20 mL = 400 mg, By Mouth, Every 6 hours, PRN Cough and Congestion, with fluids, # 240 mL, 0 Refills, Maintenance, 09/28/19 14:14:00 EDT, [place], [place] -, 163, cm, 07/11/19 13:24:00 EST, [...] 05/13/20 8:59:00 EST, Route to Pharmacy Electronically, [facility], 163, cm, 03/05/20 13:58:00 EDT, Height [...] InstructionsReplace Required Details, Route to Pharmacy Electronically, [facility], 163, cm, 03/05/20 13:58:00 EDT, Height, 114, kg, 04/19/18 23:58:00 EST, . Start Date: 03/19/20 Status: Ordered loratadine 10 mg oral tablet 10 mg, 1, tablet, By Mouth, Daily, # 30 tablet, Refills 3, Tot. Refills 3, Maintenance, 01/18/20 15:46:00 EDT, Route to Pharmacy Electronically, [facility]/pharmacy #[id number], 163, cm, 07/11/19 13:24:00 EST, Height, [...] 12/26/19 16:58:00 EDT, Route to Pharmacy Electronically, [place], [place] - [id number], 163, cm, 07/11/19 13:24:00 EST, Height, 114, kg,... Start Date: 12/26/19 Status: Ordered OXcarbazepine 150 mg oral tablet See Instructions, TAKE ONE TABLET BY MOUTH 2 (two) times a day, # 60 tablet, Refills 3, Tot. Refills 3, 03/27/20 10:55:00 EST, Instructions Replace Required Details, Route to Pharmacy Electronically,[place], [place] - [id number], 163... Start Date: 03/27/20 Status: Ordered portable oxygen concentrator portable oxygen concentrator, See Instructions, # 1 each, Refills 0, Tot. Refills 0, Maintenance, Dx severe COPD. Codes J44.9, R09.02, 01/31/20 16:26:00 EDT, Compound Start Date: 01/31/20 Status: Ordered potassium chloride 20 mEq oral tablet, extended release 1 tablet, By Mouth, Daily, # 30 tablet, 5 Refills, Maintenance, 05/13/20 8:59:00 EST, [facility], 163, cm, 03/05/20 13:58:00 EDT, Height Start Date: 05/13/20 Status: Ordered predniSONE 20 mg oral tablet 2 tablet = 40 mg, By Mouth, Daily in AM, with food or milk home delivery please, # 6 tablet, 0 Refills, Maintenance, 05/30/20 20:00:00 EST, [place], [place] - [id number], 163, cm, 03/05/20 13:58:00 EDT, Height Start [...] 0 Refills, Maintenance, 03/19/20 17:18:00 EST, Tablet, [place], [place] -... Start Date: 03/19/20 Status: Ordered tinidazole 500 mg oral tablet 4 tablet = 2,000 mg, By Mouth, Daily, with food, # 8 tablet, 0 Refills, Soft Stop, 03/18/20 14:36:00 EST, [place], [place] - [id number], 163, cm, 03/05/20 13:58:00 EDT, Height, 114, kg, 04/19/18 23:58:00 EST, Dry Weight Start Date: 03/18/20 Stop Date: 03/20/20 Status: Ordered traZODone 150 mg oral tablet 3 tablet = 450 mg, By Mouth, Daily at bedtime, Please d/c order for 300mg qhs. Correct dose 450mg qhs., # 90 tablet, 5 Refills, Maintenance, 03/27/20 10:57:00 EST, [place], [place] -[id number], 163, cm, 03/05/20 13:58:00 EDT, Height,... Start Date: 03/27/20 Status: Ordered triamcinolone 0.025% topical cream 1 applicator, Topically, 3 times a day, PRN eczema, # 80 Gm, 2 Refills, Maintenance, 08/16/19 15:48:00 EDT, [place], [place] -, 1 applicator Topically 3 times a day,PRN:eczema, 163, cm, 07/11/19 13:24:00 EST, Height, 114, kg, 04/19/18... Start Date: 08/16/19 Status: Ordered value series power lift chair [id number] value series power lift chair [id number], See Instructions, # 1 each, Refills 0, Tot. Refills 0, Maintenance, Diagnosis codes: G89.29, M19.90, J44.9, Z74.09, 01/30/20 9:31:00 EDT, Supply Start Date: 01/30/20 Status: Ordered Ventolin HFA 108 mcg/inh inhalation aerosol with adapter 2 puffs, Inhalation, 4 times a day, PRN Wheezing/Shortness of Breath, 90 days supply, # 1 each, 5 Refills, Maintenance, 04/15/20 17:48:00 EST, [facility] [id number], 163, cm,03/05/20 13:58:00 EDT, Height, 114, kg, 04/19/18 23... Start Date: 04/15/20 Status: Ordered verapamil 120 mg oral tablet 1 tablet, By Mouth, 3 times a day, home delivery please., # 90 tablet, 5 Refills, Maintenance, 05/21/20 11:21:00 EST, [place], [place] - [id number], 163, cm, 03/05/20 13:58:00 EDT, Height Start Date: 05/21/20 Status: Ordered Vitamin D3 1000 intl units oral tablet 1 tablet = 1,000 International_Units, By Mouth, Daily, # 90 tablet, 3 Refills, Maintenance, 08/16/19 15:51:00 EDT, [place], [place] -, 163, cm, 07/11/19 13:24:00 EST, [...]
--- OUTSIDE RECORDS SUMMARY | 2023-09-15 07:42 | XMS_ITS | Continuity of Care Document ---
Author Organization [facility] Address [address] [place] [address]- Care Team Providers Care Legal Word Processor Name Role Phone Kwame Bolton Primary Care Physician [phone] [place] [facility] [place] - 08/25/20 [facility] [address] [place] [id number] Attending Physician: Darryl Goodwin Admitting Physician: AdmDarryl [...] (oldterm) 08/08/06 Given 1Result Comment: Received at [facility] in [place] 2Admin Note: vis given 3Admin Note: vis given 4Result Comment: [02/22/2017] [facility] [id number] 5Admin Note: flulaval vis given vis date 11/16/2011 6Admin Note: VIS GIVEN VIS DATE 12/24/2009 7Admin Note: VIS GIVEN 12/25/08 irish 8Result Comment: [01/03/2018 Uncharted] ERROR NOT GIVEN 9Result Comment: [id number] exp 06/2009 10Admin Note: vis given Medications [...] each, 5 Refills, Maintenance, 06/11/20 11:38:00 EST, [facility] - [place], [place] - [id number], 1 sprays By Mouth 6 times a day,Instr:please dispense 2 bottles per month... Start Date: 06/11/20 Status: Ordered Breo Ellipta 200 mcg-25 mcg/inh inhalation powder See Instructions, INHALE 1 PUFF BY MOUTH INTO THE lungs DAILY. rinse mouth and throat after use, # 60 Unknown, 11 Refills, 03/27/20 10:56:00 EST, [place], [place] - [id number], 30, INHALE 1 PUFF BY MOUTH INTO [...] tablet, 0 Refills, Acute, 08/06/20 10:14:00 EDT, [facility], 163, cm, 07/31/20 13:11:00 EDT, Height Start Date: 08/06/20 Status: Ordered clonazePAM 0.5 mg oral tablet 2 tablet = 1 mg, By Mouth, 2 times a day, # 120 tablet, 2 Refills, Maintenance, 07/09/20 16:30:00 EST, [place], [place] - [id number], 163, cm, 07/08/20 9:27:00 EST, Height Start Date: 07/09/20 Stop Date: 10/07/20 Status: Ordered Daliresp 500 mcg oral tablet See Instructions, TAKE ONE TABLET BY MOUTH DAILY, # 30 tablet, 6 Refills, Maintenance, [facility], 163, cm, 03/05/20 13:58:00 EDT, [...] 12/15/19 10:10:00 EDT, Route to Pharmacy Electronically, [facility] [id number], 163, cm, 07/11/19 13:24:00 EST, Height, 114, kg... Start Date: 12/15/19 Status: Ordered docusate sodium 100 mg oral capsule See Instructions, TAKE ONE CAPSULE BY MOUTH 2 (two) times a day, # 60 capsule, 5 Refills, 03/27/20 10:56:00 EST, [facility] [id number], 163, cm, 03/05/20 13:58:00 EDT, Height, 114, [...] Gm, 5 Refills, Maintenance, 08/16/19 15:53:00 EDT, [place], [place] -, 1 sprays Nares, Both 2 times a day, 163, cm, 07/11/19 13:24:00 EST, Height, 114, kg, 04/19/18 23:58:00 EST, Dry Weight Start Date: 08/16/19 Status: Ordered furosemide 40 mg oral tablet 40 mg, 1, tablet, By Mouth, 2 times a day, # 60 tablet, Refills 5, Tot. Refills 5, Maintenance, 08/05/20 13:27:00 EDT, Route to Pharmacy Electronically, [facility] [id number], 163, cm, 07/31/20 13:11:00 EDT, Height Start [...] 05/13/20 8:59:00 EST, Route to Pharmacy Electronically, [facility], 163, cm, 03/05/20 13:58:00 EDT, Height [...] 15:46:00 EDT, [id number], 163, cm, 07/11/19 13:24:00 EST, Height, [...] Refills, Maintenance, 07/08/20 10:14:00 EST, CR Capsule, [facility] - [place], [place] - [id number], Partial fill upon patient request if the [...] 08/06/20 10:14:00 EDT, Route to Pharmacy Electronically, [facility], 163, cm, 07/31/20 13:11:00 EDT, Height [...] tablet, 5 Refills, Maintenance, 05/13/20 8:59:00 EST, [facility], 163, cm, 03/05/20 13:58:00 EDT, Height [...] Refills, Soft Stop, 01/17/20 11:40:00 EDT, Powder, [facility]/pharmacy #[id number], 0.5 mL Intramuscular Once,Instr:repeat dose in 2 to 6 months, 163, cm, 07/11/19 13:24:00 EST, Height, 114,... Start Date: 01/17/20 Status: Ordered traZODone 150 mg oral tablet 3 tablet = 450 mg, By Mouth, Daily at bedtime, Please d/c order for 300mg qhs. Correct dose 450mg qhs., # 90 tablet, 5 Refills, Maintenance, 03/27/20 10:57:00 EST, [place], [place] -[id number], 163, cm, 03/05/20 13:58:00 EDT, Height,... Start Date: 03/27/20 Status: Ordered triamcinolone 0.025% topical cream 1 applicator, Topically, 3 times a day, PRN eczema, # 80 Gm, 2 Refills, Maintenance, 08/16/19 15:48:00 EDT, [place], [place] -, 1 applicator Topically 3 times a day,PRN:eczema, 163, cm, 07/11/19 13:24:00 EST, Height, 114, kg, 04/19/18... Start Date: 08/16/19 Status: Ordered value series power lift chair [id number] value series power lift chair [id number], See Instructions, # 1 each, Refills 0, Tot. Refills 0, Maintenance, Diagnosis codes: G89.29, M19.90, J44.9, Z74.09, 01/30/20 9:31:00 EDT, Supply Start Date: 01/30/20 Status: Ordered Ventolin HFA 108 mcg/inh inhalation aerosol with adapter 2 puffs, Inhalation, 4 times a day, PRN Wheezing/Shortness of Breath, 90 days supply, # 1 each, 5 Refills, Maintenance, 04/15/20 17:48:00 EST, [facility] [id number], 163, cm,03/05/20 13:58:00 EDT, Height, 114, kg, 04/19/18 23... Start Date: 04/15/20 Status: Ordered verapamil 120 mg oral tablet 1 tablet, By Mouth, 3 times a day, home delivery please., # 90 tablet, 5 Refills, Maintenance, 05/21/20 11:21:00 EST, [facility] [id number], 163, cm, 03/05/20 13:58:00 EDT, Height Start Date: 05/21/20 Status: Ordered Vitamin D3 1000 intl units oral tablet 1 tablet = 1,000 International_Units, By Mouth, Daily, # 90 tablet, 1 Refills, Maintenance, 08/10/20 15:51:00 EDT, [facility] [id number], 163, cm, 07/31/20 13:11:00 EDT, Height Start [...] apnea(Confirmed) 4, 5 Active BHN/CCA/CP-Jo Ann Harvey [phone]/Health senior care active care coordination(Confirmed) Active 1Health [...]
--- OUTSIDE RECORDS SUMMARY | 2023-09-15 07:42 | XMS_ITS | Continuity of Care Document ---
Author Organization [facility] Address [address] [place] [address]- Care Team Providers Care Receiving Manager Name Role Phone Kwame Bolton Primary Care Physician [phone] [facility]): [facility]23 - 03/19/23 [facility] [address] [place] [id number] Attending Physician: Not on Staff, Attending [...] Casey rded influenza virus vaccine, inactivated 03/24/21 Caesy rded influenza virus vaccine, inactivated 02/01/19 Give [...] vaccine, inactivated 5 02/26/09 Gi cecile SARS-CoV-2(COVID-19)mRNA-LNP vac([id number]) 02/25/23 Recorded SARS-CoV-2 (COVID-19) mRNA-1273 vaccine 6 [...] 1Result Comment: [02/16/2023] Given at [facility] Averecord can be obtained from [facility] 2Result Comment: [02/22/2017] [facility] [place] [id number] 3Admin Note: flulaval vis given vis date 11/16/2011 4Admin Note: VIS GIVEN VIS DATE 12/24/2009 5Admin Note: VIS GIVEN 12/25/08 korean 6Result Comment: new booster 7Result Comment: dose 2 8Result Comment: dose 1 9Result Comment: Received at [facility] on [facility] [place] 10Admin Note: vis given 11Admin Note: vis given 12Result Comment: [id number] exp 06/2009 13Admin Note: vis given Medications [...] each, 0 Refills, Maintenance, 01/05/23 14:03:00 EDT, [place], [place] - [id number], Partial fill upon patient request if the prescription is for a schedule II opioid drug., 163, c... Start Date: 01/05/23 Status: Ordered B-Complex with B-12 oral tablet See Instructions, TAKE 1 TABLET BY MOUTH ONCE DAILY WITH FOOD, # 90 tablet, 1 Refills, Maintenance,11/18/22 10:57:00 EDT, [facility], 90, TAKE 1 TABLET BY MOUTH ONCE DAILY WITH FOOD, 163, cm, 11/18/22 8:31:00 EDT, Height, 122, kg, 05/02/22 15:20... Start Date: 11/18/22 Status: Ordered Biotene Moisturizing Mouth oral spray 1 sprays, By Mouth, 6 times a day, BIOTENE NAME BRAND MAY BE REQUIRED, # 240 mL, 5 Refills, Maintenance, 11/18/22 8:47:00 EDT, [place], [place] - [id number], Partial fill upon patient request if the prescription is for a schedule II o... Start Date: 11/18/22 Status: Ordered Cane See Instructions, # 1 each, Maintenance, DX LEFT KNEE PAIN /ACL TEAR /ARTHRITIS DX CODE M25.562 HT 163 CM WT 123 KG DURATION -LIETIME PATIENTS CANE BROLUANNE, 01/06/19 8:36:49 EDT, Compound Start Date: 01/06/19 Status: Ordered Comfort EZ Pen Sunbright 32 gauge x 5/32 Comfort EZ Pen Sunbright 32 gauge x 5/32 , See Instructions, # 50 Unknown, 11 Refills, USE DAILY WITHvictoza injection, 163, cm, 03/25/21 9:16:00 EST, Height Start Date: 04/01/21 Status: Ordered Comfort EZ Pen Sunbright 32 gauge x 5/32 Comfort EZ Pen Sunbright 32 gauge x 5/32 , See Instructions, # 50 Unknown, 0 Refills, USE DAILY WITH victoza injection, 163, cm, 12/18/20 9:01:00 EDT, Height Start Date: 02/05/21 Status: Ordered Comfort EZ Pen Sunbright 32 gauge x 5/32 Comfort EZ Pen Sunbright 32 gauge x 5/32 , See Instructions, [...] Maintenance, 03/17/23 9:55:00 EDT, [facility] [id number], Partial fill upon patient request if the prescription is for a schedule II... Start Date: 03/17/23 Status: Ordered docusate sodium 100 mg oral capsule 1 capsule, By Mouth, 2 times a day, dose frquency increase to twice per day 11/18/22, # 60 each, 5 Refills, Maintenance, 11/18/22 8:49:00 EDT, [facility] [id number], docusate dosing increase to bid 11/18/22., 163, cm, 11/18/22 8:3... Start Date: 11/18/22 Status: Ordered Ear Pain MD 4% otic liquid 2 drops, Ears, Both, 3 times a day, PRN Pain , Moderate, # 12.5 mL, 0 Refills, Maintenance, 01/04/23 21:24:00 EDT, [facility] [id number], Partial fill upon patient request ifthe prescription [...] tablet, 5 Refills, Maintenance, 11/18/22 10:57:00 EDT, [facility], 163, cm, 11/18/22 8:31:00 EDT, Height, 122, kg, 05/02/22 15:20:00 EST, Dry Weight Start Date: 11/18/22 Status: Ordered fluticasone 50 mcg/inh nasal spray 1 sprays, Nares, Both, Daily, # 16 Gm, 2 Refills, Maintenance, 12/29/22 17:51:00 EDT, [place], [place] - [id number], Partial fill upon patient request if the prescription is for a schedule II opioid drug., 1 sprays Nares, Both Daily,... Start Date: 12/29/22 Status: Ordered furosemide 40 mg oral tablet 1, tablet, By Mouth, 2 times a day, # 60 tablet, Refills 5, Maintenance, 10/21/22 11:08:00 EDT, Route to Pharmacy Electronically, [facility], 163, cm, 10/14/22 8:43:00 EDT, [...] 02/15/23 10:38:00 EDT, Route to Pharmacy Electronically, [facility], 163, cm, 01/20/23 8:13:00 EDT, [...] 02/10/23 10:21:00 EDT, Route to Pharmacy Electronically, [facility], 163, cm, 01/20/23 8:13:00 EDT, Height, 122, kg, 05/02/22 15:20:00 EST, Dry Weight Start Date: 02/10/23 Status: Ordered Mag-G 500 mg oral tablet 0.5 tablet, By Mouth, 2 times a day, # 30 tablet, 2 Refills, Maintenance, 02/15/23 18:46:00 EDT, [facility], 163, cm, 01/20/23 8:13:00 EDT, Height, 122, kg, 05/02/22 15:20:00 EST, Dry Weight Start Date: 02/15/23 Status: Ordered Nicotrol Inhaler 10 mg inhalation device See Instructions, To use with nicotine cartridges in place of cigarettes, # 3 each, 0 Refills, Maintenance, 08/31/22 9:43:00 EDT, [place], [place] - [id number], Partial fill upon patient request if the [...] each, 5 Refills, Maintenance, 11/18/22 8:46:00 EDT, [place], [place] - [id number], dose increase to 0.5mg per week 11/18/22., [...] Start Date: 01/31/20 Status: Ordered Potassium Chloride (Bgw-Dnsq-Vdq M20) 20 mEq oral tablet, extended release 1 tablet, By Mouth, Daily, # 30 tablet, 6 Refills, Maintenance, 01/13/23 15:35:00 EDT, [facility], 163, cm, 12/22/22 8:54:00 EDT, [...] tablet, 6 Refills, Maintenance, 01/13/23 15:35:00 EDT, [facility], 163, cm, 12/22/22 8:54:00 EDT, [...] tablet, 5 Refills, Maintenance, 02/23/23 13:56:00 EDT, [place], [place] - [id number], please dispense in bubble pack. dose increase... Start Date: 02/23/23 Status: Ordered square orthopedic pillow with central square depression and surrounding bolster square orthopedic pillow with central square depression and surrounding bolster, See Instructions, # 1 each, Refills 0, Tot. Refills 0, Maintenance, Product number [id number] Dx codes: M54.2 Duration: lifetime, 07/21/22 14:25:00 EST, Supply Start Date: 07/21/22 Status: Ordered traZODone 150 mg oral tablet 3 tablet, By Mouth, Daily at bedtime, # 270 tablet, 6 Refills, 10/26/22 10:18:00 EDT, [facility] [id number], 163, cm, 10/14/22 8:43:00 EDT, Height, 122, kg, 05/02/22 15:20:00EST, Dry Weight Start Date: 10/26/22 Status: Ordered Trelegy Ellipta 200 mcg-62.5 mcg-25 mcg/inh inhalation powder 1 puffs, Inhalation, Daily, at the same time every day, # 9 each, 3 Refills, Maintenance, 08/31/22 9:41:00 EDT, Powder, [place], [place] - [id number], Partial fill upon patient request if the prescription is for a schedule II opioid d... Start Date: 08/31/22 Status: Ordered value series power lift chair [id number] value series power lift chair [id number], See Instructions, # 1 each, Refills 0, Tot. Refills 0, Maintenance, Diagnosis codes: G89.29, M19.90, J44.9, Z74.09, 01/30/20 9:31:00 EDT, Supply Start Date: 01/30/20 Status: Ordered Ventolin HFA 108 mcg/inh inhalation aerosol with adapter 2 puffs, Inhalation, 4 times a day, PRN Wheezing/Shortness of Breath, 90 days supply, # 3 each, 1 Refills, Maintenance, 10/21/22 11:03:00 EDT, [place], [place] - [id number], 163, cm,10/14/22 8:43:00 EDT, Height, 122, kg, [...] 4, 5 Confirmed Active BHN/CCA/CP-Jo Ann Harvey [phone]/Health assisted active care coordination Confirmed Active Severe obesity [...] Personnel Name: Kwame Bolton Position: [facility] PCO Associate Professional Member Role: PCP Address: Address: [address] [place] [address] [place] [address]- Name: Perri Perry RN Position: [facility] RN Member Role: Primary Care Nurse Name: Alicia Vallecillo RN Position: [facility] RN Member Role: Primary Care Nurse Name: Maureen Smith RN Position: [facility] RN Member Role: Primary Care Nurse Name: Sultana Broussard RN Position: [facility] RN Member Role: Primary Care Nurse Name: Abigail Dior RN Position: [facility] RN Member Role: Primary Care Nurse Name: Ivette Carter RN Position: [facility] RN Member Role: Primary Care Nurse Name: Rukhsana Matthews RN Position: [facility] Hospital Veneer Taping Machine Operator Member Role: Primary Care Nurse Care Team Related Persons Name: TANA MENDOZA Address: [place] [address] Name: MARIA TERESA UMAÑA Address: home [address] [place] [address] Name: ANG GAFFNEY Address: home [address] [place] [address] Name: CHILO AHMADI Address: home [address] [address]
--- OUTSIDE RECORDS SUMMARY | 2023-09-15 07:42 | XMS_ITS | Continuity of Care Document ---
Author Organization [facility] Address [address] [place] [address]- Care Team Providers Care Tree Inspector Name Role Phone Kwame Bolton Primary Care Physician [phone] [facility] Date[facility]s): 09[facility]03[facility]21 - 10/03/21 [facility] [address] [place] [id number] Allergies, Adverse Reactions, Alerts Substance [...] dose 1 3Result Comment: Received at [facility] on [facility] [place] 4Admin Note: vis given 5Admin Note: vis given 6Result Comment: [02/22/2017] [facility] [id number] 7Admin Note: flulaval vis given vis date 11/16/2011 8Admin Note: VIS GIVEN VIS DATE 12/24/2009 9Admin Note: VIS GIVEN 12/25/08 ukrainian 10Result Comment: [01/03/2018 Uncharted] ERROR NOT GIVEN 11Result Comment: [id number] exp 06/2009 12Admin Note: vis given Medications [...] Date: 01/06/19 Status: Ordered Comfort EZ Pen Adams 32 gauge x 5/32 Comfort EZ Pen Adams 32 gauge x 5/32 , See Instructions, # 50 Unknown, 11 Refills, USE DAILY WITHvictoza injection, 163, cm, 03/25/21 9:16:00 EST, Height Start Date: 04/01/21 Status: Ordered Comfort EZ Pen Adams 32 gauge x 5/32 Comfort EZ Pen Adams 32 gauge x 5/32 , See Instructions, # 50 Unknown, 0 Refills, USE DAILY WITH victoza injection, 163, cm, 12/18/20 9:01:00 EDT, Height Start Date: 02/05/21 Status: Ordered D3 1000 intl units (25 mcg) oral tablet 1 tablet, By Mouth, Daily, # 30 tablet, 5 Refills, [facility], 163, cm, 07/09/21 8:06:00 EST, Height Start Date: 07/25/21 Status: Ordered Daliresp 500 mcg oral tablet 1 tablet, By Mouth, Daily, # 30 tablet, 6 Refills, [facility], 163, cm, 04/29/21 8:04:00 EST, Height Start Date: 05/02/21 Status: Ordered docusate sodium 100 mg oral capsule 1 capsule, By Mouth, Daily, # 60 each, 5 Refills, Maintenance, 04/04/21 11:02:00 EST, [facility] [place], [place] - [id number], 163, cm, 03/25/21 9:16:00 EST, Height Start Date: 04/04/21 Status: Ordered doxycycline 100mg oral capsule doxycycline 100mg oral capsule, 1, capsule, By Mouth, 2 times a day, # 14 capsule, Refills 0, Tot. Refills 0, Maintenance, 04/29/21 8:31:00 EST, Supply, 163, cm, 04/29/21 8:04:00 EST, Height Start Date: 04/29/21 Stop Date: 05/06/21 Status: Ordered doxycycline monohydrate 100mg oral capsule doxycycline monohydrate 100mg oral capsule, 1, capsule, By Mouth, 2 times a day, # 14 capsule, Refills 0, Tot. Refills 0, Maintenance, 09/05/21 13:14:00 EDT, Supply, 163, cm, 08/01/21 12:50:00 EDT, Height Start Date: 09/05/21 Stop Date: 09/12/21 Status: Ordered Electric Neck Shawl Heating Pad [...] tablet, Refills 6, Route to Pharmacy Electronically, [facility], 163, cm, 04/29/21 8:04:00 EST, Height Start Date: 05/02/21 Status: Ordered guaiFENesin 100 mg/5 mL oral liquid 20 mL = 400 mg, By Mouth, 2 times a day, for congestion, cough. with fluids, # 240 mL, 0 Refills, Maintenance, 04/14/21 8:42:00 EST, [facility] [id number], Partial fill upon patient request if the prescription is for a schedu... Start Date: 04/14/21 Status: Ordered guaiFENesin 100 mg/5 mL oral liquid 10 mL = 200 mg, By Mouth, Every 6 hours, PRN Cough and Congestion, with fluids, # 240 mL, 0 Refills, Maintenance, 09/05/21 13:15:00 EDT, [facility] [id number], Partial fill upon patient request if the prescription is for a pino... Start Date: 09/05/21 Status: Ordered HOME BP MONITOR WITH WRIST [...] NEEDEDFOR SEVERE PAIN, Route to Pharmacy Electronically, [facility], 163, cm, 03/25/21 9:16:00 EST, Height [...] 02/26/21 9:41:00 EDT, Route to Pharmacy Electronically, [facility] [id number], Partialfill upon patient request if the prescription is fo... Start Date: 02/26/21 Status: Ordered loratadine 10 mg oral tablet 10 mg, 1, tablet, By Mouth, Daily, # 30 tablet, Refills 3, Tot. Refills 3, Maintenance, 09/26/21 13:31:00 EDT, Route to Pharmacy Electronically, [facility] [id number], Partial fill upon patient request if the [...] Start Date: 01/31/20 Status: Ordered Potassium Chloride (Pit-Bbil-Uzc M20) 20 mEq oral tablet, extended release 1 tablet, By Mouth, Daily, # 30 tablet, 6 Refills, [facility], 163, cm, 04/29/21 8:04:00 EST, Height [...] Mouth, Daily, # 30 tablet, 2 Refills, [facility], 163, cm, 04/29/21 8:04:00 EST, Height Start Date: 05/28/21 Status: Ordered sertraline 50 mg oral tablet See Instructions, TAKE ONE TABLET BY MOUTH DAILY, # 30 tablet, 2 Refills, [facility], 163, cm,08/01/21 12:50:00 EDT, Height Start Date: 08/20/21 Status: Ordered square orthopedic pillow with central square depression and surrounding bolster square orthopedic pillow with central square depression and surrounding bolster, See Instructions, # 1 each, Refills 0, Tot. Refills 0, Maintenance, Product number [id number] Dx codes: M54.2 Duration: lifetime, 02/27/21 19:03:00 EDT, Supply Start Date: 02/27/21 Status: Ordered traZODone 150 mg oral tablet 3 tablet, By Mouth, Daily at bedtime, # 270 tablet, 1 Refills, Maintenance, 05/28/21 10:31:00 EST, [place], [place] - [id number], 163, cm, 04/29/21 8:04:00 EST, Height Start Date: 05/28/21 Status: Ordered triamcinolone 0.025% topical cream 1 applicator, Topically, 3 times a day, PRN eczema, # 80 Gm, 2 Refills, Maintenance, 08/16/19 15:48:00 EDT, [place], [place] -, 1 applicator Topically 3 times a day,PRN:eczema, 163, cm, 07/11/19 13:24:00 EST, Height, 114, kg, 04/19/18... Start Date: 08/16/19 Status: Ordered value series power lift chair [id number] value series power lift chair [id number], See Instructions, # 1 each, Refills 0, Tot. Refills 0, Maintenance, Diagnosis codes: G89.29, M19.90, J44.9, Z74.09, 01/30/20 9:31:00 EDT, Supply Start Date: 01/30/20 Status: Ordered varenicline 1mg tablet 1 tablet, By Mouth, 2 times a day, # 56 tablet, 5 Refills, [facility], 163, cm, 07/09/21 8:06:00 EST, Height Start Date: 07/25/21 Status: Ordered Ventolin HFA 108 mcg/inh inhalation aerosol with adapter 2 puffs, Inhalation, 4 times a day, PRN Wheezing/Shortness of Breath, 90 days supply, # 1 each, 5 Refills, Maintenance, 10/07/20 6:45:00 EDT, [place], [place] - [id number], 163, cm, 09/24/20 13:25:00 EDT, Height Start Date: 10/07/20 Status: Ordered Victoza 18 mg/3 mL subcutaneous solution = 1.2 mg, Subcutaneous Infusion, Daily, dose increase to 1.2mg qd 04/29/21., # 15 mL, 5 Refills, Maintenance, 04/29/21 8:26:00 EST, [place], [place] - [id number], Partial fill upon patient request if the prescription is for a schedule... Start Date: 04/29/21 Status: Ordered Vitamin B Complex oral tablet, extended release 1 tablet, By Mouth, Daily, with food., # 90 tablet, 3 Refills, Maintenance, 12/18/20 10:26:00 EDT, [place], [place] - [id number], Partial fill upon patient request if the prescription is for a schedule II opioid drug., 1 tablet By Rosana... Start Date: 12/18/20 Stop Date: 12/13/21 Status: Ordered wrist blood pressure monitor wrist [...] apnea(Confirmed) 4, 5 Active BHN/CCA/CP-Jo Ann Harvey [phone]/Health residential active care coordination(Confirmed) Active Severe obesity(Confirmed) Active [...]
--- OUTSIDE RECORDS SUMMARY | 2023-09-15 07:42 | XMS_ITS | Continuity of Care Document ---
Author Organization [facility] Address [address] [place] [address]- Care Team Providers Care Pharmacy Customer Care Specialist Name Role Phone Kwame Bolton Primary Care Physician Encounter [facility] Date(s): 05/27/23 - 06/26/23 [facility] [address], [place] [address] Allergies, Adverse Reactions, Alerts Substance Reaction [...] vaccine, inactivated 5 02/26/09 Gi cecile SARS-CoV-2(COVID-19)mRNA-LNP vac([id number]) 02/25/23 Recorded SARS-CoV-2 (COVID-19) mRNA-1273 vaccine 6 [...] 1Result Comment: [02/16/2023] Given at [facility] Averecord can be obtained from [facility] 2Result Comment: [02/22/2017] [facility] [place] [id number] 3Admin Note: flulaval vis given vis date 11/16/2011 4Admin Note: VIS GIVEN VIS DATE 12/24/2009 5Admin Note: VIS GIVEN 12/25/08 georgian 6Result Comment: new booster 7Result Comment: dose 2 8Result Comment: dose 1 9Result Comment: Received at [facility] on [facility] in [place] 10Admin Note: vis given 11Admin Note: vis given 12Result Comment: [id number] exp 06/2009 13Admin Note: vis given Medications [...] EST, Compound Start Date: 07/12/19 Status: Ordered Eureka Saline 0.65% nasal gel 1 sprays, Nares, Both, 4 times a day, # 22.5 Gm, 1 Refills, Maintenance, 04/12/23 8:20:00 EST, [facility] [id number], Partial fill upon patient request if the prescription isfor a schedule II opioid drug., 1 sprays Nares, Bot... Start Date: 04/12/23 Status: Ordered Azithromycin 5 Day Dose Pack 250 mg oral tablet See Instructions, as directed on package labeling, # 6 each, 0 Refills, Maintenance, 01/05/23 14:03:00 EDT, [facility] [id number], Partial fill upon patient request if the prescription is for a schedule II opioid drug., 163, c... Start Date: 01/05/23 Status: Ordered B-Complex with B-12 oral tablet See Instructions, TAKE 1 TABLET BY MOUTH ONCE DAILY WITH FOOD, # 90 tablet, 1 Refills, Maintenance,05/28/23 17:52:00 EST, [facility] [id number], 90, TAKE 1 TABLET BY MOUTH ONCE DAILY WITH FOOD, 163, cm, 05/06/23 8:47:00 EST,... Start Date: 05/28/23 Status: Ordered Biotene Moisturizing Mouth oral spray 1 sprays, By Mouth, 6 times a day, BIOTENE NAME BRAND MAY BE REQUIRED, # 240 mL, 5 Refills, Maintenance, 11/18/22 8:47:00 EDT, [facility] [id number], Partial fill upon patient request if the prescription is for a schedule II o... Start Date: 11/18/22 Status: Ordered Cane See Instructions, # 1 each, Maintenance, DX LEFT KNEE PAIN /ACL TEAR /ARTHRITIS DX CODE M25.562 HT 163 CM WT 123 KG DURATION -LIETIME PATIENTS VERA BOYKIN, 01/06/19 8:36:49 EDT, Compound Start Date: 01/06/19 Status: Ordered Comfort EZ Pen [place] 32 gauge x 5/32 Comfort EZ Pen [place] 32 gauge x 5/32 , See Instructions, # 50 Unknown, 11 Refills, USE DAILY WITHvictoza injection, 163, cm, 03/25/21 9:16:00 EST, Height Start Date: 04/01/21 Status: Ordered Comfort EZ Pen [place] 32 gauge x 5/32 Comfort EZ Pen [place] 32 gauge x 5/32 , See Instructions, # 50 Unknown, 0 Refills, USE DAILY WITH victoza injection, 163, cm, 12/18/20 9:01:00 EDT, Height Start Date: 02/05/21 Status: Ordered Comfort EZ Pen [place] 32 gauge x 5/32 Comfort EZ Pen [place] 32 gauge x 5/32 , See Instructions, [...] each, 5 Refills, Maintenance, 03/17/23 9:55:00 EDT, [place], [place] - [id number], Partial fill upon patient request if the prescription is for a schedule II... Start Date: 03/17/23 Status: Ordered docusate sodium 100 mg oral capsule 1 capsule, By Mouth, 2 times a day, # 60 each, 5 Refills, Maintenance, 05/14/23 10:27:00 EST, [facility], 163, cm, 05/06/23 8:47:00 EST, Height, 122, kg, 05/02/22 15:20:00 EST, Dry Weight Start Date: 05/14/23 Status: Ordered Ear Pain MD 4% otic liquid 2 drops, Ears, Both, 3 times a day, PRN Pain , Moderate, # 12.5 mL, 0 Refills, Maintenance, 01/04/23 21:24:00 EDT, [place], [place] - [id number], Partial fill upon patient request ifthe prescription [...] Refills, Maintenance, 05/27/23 18:43:00 EST, [facility], 163, cm, 05/06/23 8:47:00 EST, Height, 122, kg, 05/02/22 15:20:00 EST, Dry Weight Start Date: 05/27/23 Status: Ordered fluticasone 50 mcg/inh nasal spray 1 sprays, Nares, Both, Daily, # 16 Gm, 2 Refills, Maintenance, 12/29/22 17:51:00 EDT, [place], [place] - [id number], Partial fill upon patient request if the prescription is for a schedule II opioid drug., 1 sprays Nares, Both Daily,... Start Date: 12/29/22 Status: Ordered furosemide 40 mg oral tablet 1, tablet, By Mouth, 2 times a day, # 60 tablet, Refills 5, Maintenance, 04/13/23 13:49:00 EST, Route to Pharmacy Electronically, [facility], 163, cm, 04/12/23 8:10:00 EST, Height, [...] 06/14/23 8:55:00 EST, Route to Pharmacy Electronically, [facility], 163, cm, 05/06/23 8:47:00 EST, [...] 02/10/23 10:21:00 EDT, Route to Pharmacy Electronically, [facility], 163, cm, 01/20/23 8:13:00 EDT, Height, 122, kg, 05/02/22 15:20:00 EST, Dry Weight Start Date: 02/10/23 Status: Ordered Mag-G 500 mg oral tablet 0.5 tablet, By Mouth, 2 times a day, # 30 tablet, 2 Refills, Maintenance, 02/15/23 18:46:00 EDT, [facility], 163, cm, 01/20/23 8:13:00 EDT, Height, 122, kg, 05/02/22 15:20:00 EST, Dry Weight Start Date: 02/15/23 Status: Ordered Nicotrol Inhaler 10 mg inhalation device See Instructions, To use with nicotine cartridges in place of cigarettes, # 3 each, 0 Refills, Maintenance, 08/31/22 9:43:00 EDT, [place], [place] - [id number], Partial fill upon patient request if the [...] Start Date: 01/31/20 Status: Ordered Potassium Chloride (Afa-Orwx-Nre M20) 20 mEq oral tablet, extended release [...] tablet, 6 Refills, Maintenance, 01/13/23 15:35:00 EDT, [facility], 163, cm, 12/22/22 8:54:00 EDT, Height, [...] tablet, 5 Refills, Maintenance, 02/23/23 13:56:00 EDT, [place], [place] - [id number], please dispense in bubble pack. dose increase... Start Date: 02/23/23 Status: Ordered square orthopedic pillow with central square depression and surrounding bolster square orthopedic pillow with central square depression and surrounding bolster, See Instructions, # 1 each, Refills 0, Tot. Refills 0, Maintenance, Product number [id number] Dx codes: M54.2 Duration: lifetime, 07/21/22 14:25:00 EST, Supply Start Date: 07/21/22 Status: Ordered traZODone 150 mg oral tablet 3 tablet, By Mouth, Daily at bedtime, # 270 tablet, 6 Refills, 10/26/22 10:18:00 EDT, [place], [place] - [id number], 163, cm, 10/14/22 8:43:00 EDT, Height, 122, kg, 05/02/22 15:20:00EST, Dry Weight Start Date: 10/26/22 Status: Ordered Trelegy Ellipta 200 mcg-62.5 mcg-25 mcg/inh inhalation powder 1 puffs, Inhalation, Daily, at the same time every day, # 9 each, 3 Refills, Maintenance, 08/31/22 9:41:00 EDT, Powder, [place], [place] - [id number], Partial fill upon patient request if the prescription is for a schedule II opioid d... Start Date: 08/31/22 Status: Ordered value series power lift chair [id number] value series power lift chair [id number], See Instructions, # 1 each, Refills 0, Tot. Refills 0, Maintenance, Diagnosis codes: G89.29, M19.90, J44.9, Z74.09, 01/30/20 9:31:00 EDT, Supply Start Date: 01/30/20 Status: Ordered Ventolin HFA 108 mcg/inh inhalation aerosol with adapter 2 puffs, Inhalation, 4 times a day, PRN NEEDED FOR SHORTNESS OF BREATH OR FOR WHEEZING, # 18 Gm,5 Refills, Maintenance, 04/13/23 13:49:00 EST, [facility], 163, cm, 04/12/23 8:10:00 EST, Height, [...] 4, 5 Confirmed Active BHN/CCA/CP-Jo Ann Harvey [phone]/[facility] active care coordination Confirmed Active BHN/CCA/LCC Lisa Pyleillo [phone]/[facility] active care coordination Confirmed Active Severe [...] Care Team Personnel Name: Kwame Bolton Position: [facility] PCO Associate Professional Member Role: PCP Address: Address: [address] [place] [address] [place] [address]- Name: Perri Perry RN Position: [facility] RN Member Role: Primary Care Nurse Name: Alicia Vallecillo RN Position: [facility] RN Member Role: Primary Care Nurse Name: Maureen Smith RN Position: [facility] RN Member Role: Primary Care Nurse Name: Sultana Broussard RN Position: [facility] RN Member Role: Primary Care Nurse Name: Abigail Dior RN Position: [facility] RN Member Role: Primary Care Nurse Name: Ivette Carter RN Position: [facility] RN Member Role: Primary Care Nurse Name: Rukhsana Matthews RN Position: [facility] Mannequin Wig Maker Member Role: Primary Care Nurse Care Team Related Persons Name: TANA MENDOZA Address: [place] [address] Name: MARIA TERESA UMAÑA Address: home [address] [place] [address] Name: ANG GAFFNEY Address: home [address] [place] [address] Name: CHILO AHMADI Address: home [address] [address]
--- OUTSIDE RECORDS SUMMARY | 2023-09-15 07:42 | XMS_ITS | Continuity of Care Document ---
Author Organization [facility] ter Address [address] [place] [address]- Care Team Providers Care Financial Economist Name Role Phone Kwame Bolton Primary Care Physician [place] [facility] [place] - 10/29/[address] [address] [place] Attending Physician: Not on Staff, Attending MD [...] 3Result Comment: dose 1 4Result Comment: [02/22/2017] [facility] [id number] 5Admin Note: flulaval vis given vis date 11/16/2011 6Admin Note: VIS GIVEN VIS DATE 12/24/2009 7Admin Note: VIS GIVEN 12/25/08 chilean 8Result Comment: Received at [facility] on [facility] in [place] 9Admin Note: vis given 10Admin Note: vis given 11Result Comment: [01/03/2018 Uncharted] ERROR NOT GIVEN 12Result Comment: [id number] exp 06/2009 13Admin Note: vis given Medications [...] WITH FOOD, # 90 tablet, 3 Refills, [facility], 90, TAKE ONE TABLET BY MOUTH DAILY WITH FOOD, 163, cm, 09/26/21 13:20:00 EDT, Height Start Date: 12/15/21 Status: Ordered Biotene Moisturizing Mouth oral spray 1 sprays, By Mouth, 6 times a day, BIOTENE NAME BRAND MAY BE REQUIRED, # 240 mL, 1 Refills, Maintenance, 09/17/22 10:19:00 EDT, [facility] [id number], Partial fill upon patient request if the prescription is for a schedule II... Start Date: 09/17/22 Status: Ordered busPIRone 10 mg oral tablet 10 mg, 1, tablet, By Mouth, 3 times a day, for anxiety, # 90 tablet, Refills 0, Tot. Refills 0, Maintenance, 03/03/22 14:49:00 EDT, Route to Pharmacy Electronically, [facility] [id number], Partial fill upon patient request if... Start [...] mL, 1 Refills, Maintenance, 03/03/22 14:52:00 EDT, [facility] [id number], Partial fill uponpatient request if the prescription is for a schedu... Start Date: 03/03/22 Status: Ordered Comfort EZ Pen [place] 32 gauge x 5/32 Comfort EZ Pen [place] 32 gauge x 5/32 , See Instructions, # 50 Unknown, 11 Refills, USE DAILY WITHvictoza injection, 163, cm, 03/25/21 9:16:00 EST, Height Start Date: 04/01/21 Status: Ordered Comfort EZ Pen [place] 32 gauge x 5/32 Comfort EZ Pen [place] 32 gauge x 5/32 , See Instructions, # 50 Unknown, 0 Refills, USE DAILY WITH victoza injection, 163, cm, 12/18/20 9:01:00 EDT, Height Start Date: 02/05/21 Status: Ordered Comfort EZ Pen [place] 32 gauge x Comfort EZ Pen [place] 32 gauge x 32 , See Instructions, # 50 Unknown, 11 Refills, Maintenance, USE DAILY WITH victoza injection, 06/04/22 11:52:00 EST, 164, cm, 06/02/22 16:10:00 EST, Height, 122,kg, 05/02/22 15:20:00 EST, Dry Weight Start Date: 06/04/22 Status: Ordered D3 1000 intl units (25 mcg) oral tablet 1 tablet, By Mouth, Daily, # 30 tablet, 5 Refills, 06/24/22 11:25:00 EST, [facility] [place], [place] - [id number], 164, cm, 06/02/22 16:10:00 EST, Height, 122, kg, 05/02/22 15:20:00 EST, Dry Weight Start Date: 06/24/22 Status: Ordered Daliresp 500 mcg oral tablet 1 tablet, By Mouth, Daily, # 30 tablet, 6 Refills, [facility], 163, cm, 09/26/21 13:20:00 EDT,Height Start Date: 11/14/21 Status: Ordered docusate sodium 100 mg oral capsule 1 capsule, By Mouth, Daily, # 60 each, 5 Refills, Maintenance, 02/18/22 11:21:00 EDT, [facility], 163, cm, 12/29/21 9:41:00 [...] Mouth, Every other day, # 15 tablet, 1 Refills, Maintenance, 10/21/22 11:07:00 EDT, [facility], 163, cm, 10/14/22 8:43:00 EDT, Height, 122, kg, 05/02/22 15:20:00 EST, Dry Weight Start Date: 10/21/22 Status: Ordered Flonase 50 mcg/inh nasal spray 1 sprays, Nares, Both, Daily, # 16 Gm, 0 Refills, Maintenance, 04/13/22 12:06:00 EST, [place] [id number], Partial fill upon patient request if the prescription is for a schedule II opioid drug., 1 sprays Nares, Both... Start Date: 04/13/22 Stop Date: 05/13/22 Status: Ordered furosemide 40 mg oral tablet 1, tablet, By Mouth, 2 times a day, # 60 tablet, Refills 5, Maintenance, 10/21/22 11:08:00 EDT, Route to Pharmacy Electronically, [facility], 163, cm, 10/14/22 8:43:00 EDT, Height, 122, kg, 05/02/22 15:20:00 EST, Dry Weight Start Date: 10/21/22 Status: Ordered guaiFENesin 100 mg/5 mL oral liquid 20 mL = 400 mg, By Mouth, 2 times a day, for congestion, cough. with fluids, # 240 mL, 0 Refills, Maintenance, 04/14/21 8:42:00 EST, [facility], [place] - [id number], Partial fill upon patient request if the [...] 08/18/22 11:21:00 EDT, Route to Pharmacy Electronically, [facility] - [place], [place] - [id number], 1... Start Date: 08/18/22 Status: Ordered ibuprofen 800 mg oral tablet 1, tablet, By Mouth, Every 8 hours, PRN, TAKE WITH FOOD OR MILK, # 60 tablet, Refills 0, Maintenance, NEEDED FOR SEVERE PAIN, 02/18/22 11:21:00 EDT, Route to Pharmacy Electronically, [facility], 163, cm, 12/29/21 9:41:00 [...] 07/23/22 10:02:00 EST, Route to Pharmacy Electronically, [facility], 164, cm, 07/21/22 8:59:00 EST, Height, 122, kg, 05/02/22 15:20:00 EST, Dry Weight Start Date: 07/23/22 Status: Ordered magnesium gluconate 250 mg oral tablet 1 tablet = 250 mg, By Mouth, 2 times a day, # 60 tablet, 2 Refills, Maintenance, 09/22/22 17:27:00 EDT, [facility] [id number], Partial fill upon patient request if the [...] each, 0 Refills, Maintenance, 08/31/22 9:43:00 EDT, [facility] [id number], Partial fill upon patient request if the [...] each, 5 Refills, Maintenance, 09/16/22 8:19:00 EDT, [place], [place] - [id number], please stop victoza, 0.25 mg Subcutaneous Infusion Every week, 163, cm, 09/16/22 7:13:00 EDT, Height,... Start Date: 09/16/22 Status: Ordered portable oxygen concentrator portable oxygen concentrator, See Instructions, # 1 each, Refills 0, Tot. Refills 0, Maintenance, Dx severe COPD. Codes J44.9, R09.02, 01/31/20 16:26:00 EDT, Compound Start Date: 01/31/20 Status: Ordered Potassium Chloride (Zny-Qsgp-Dom M20) 20 mEq oral tablet, extended release 1 tablet, By Mouth, Daily, # 30 tablet, 6 Refills, Maintenance, 05/25/22 17:29:00 EST, [facility], 164, cm, 05/02/22 15:20:00 [...] tablet, 5 Refills, Maintenance, 08/18/22 11:22:00 EDT, [facility] [id number], please dispense in bubble pack. dose increase... Start Date: 08/18/22 Status: Ordered square orthopedic pillow with central square depression and surrounding bolster square orthopedic pillow with central square depression and surrounding bolster, See Instructions, # 1 each, Refills 0, Tot. Refills 0, Maintenance, Product number [id number] Dx codes: M54.2 Duration: lifetime, 07/21/22 14:25:00 EST, Supply Start Date: 07/21/22 Status: Ordered traZODone 150 mg oral tablet 3 tablet, By Mouth, Daily at bedtime, # 270 tablet, 6 Refills, 10/26/22 10:18:00 EDT, [facility] [id number], 163, cm, 10/14/22 8:43:00 EDT, Height, 122, kg, 05/02/22 15:20:00EST, Dry Weight Start Date: 10/26/22 Status: Ordered Trelegy Ellipta 200 mcg-62.5 mcg-25 mcg/inh inhalation powder 1 puffs, Inhalation, Daily, at the same time every day, # 9 each, 3 Refills, Maintenance, 08/31/22 9:41:00 EDT, Powder, [facility] [id number], Partial fill upon patient request if the prescription is for a schedule II opioid d... Start Date: 08/31/22 Status: Ordered value series power lift chair [id number] value series power lift chair [id number], See Instructions, # 1 each, Refills 0, Tot. Refills 0, Maintenance, Diagnosis codes: G89.29, M19.90, J44.9, Z74.09, 01/30/20 9:31:00 EDT, Supply Start Date: 01/30/20 Status: Ordered varenicline 1mg tablet 1 tablet, By Mouth, 2 times a day, # 56 tablet, 5 Refills, Physician Stop 06/24/23 11:28:00 EST, 06/24/22 11:30:00 EST, [facility] [id number], 164, cm, 06/02/22 16:10:00 EST,Height, 122, kg, 05/02/22 15:20:00 EST, Dry Weight Start Date: 06/24/22 Stop Date: 06/24/23 Status: Ordered Ventolin HFA 108 mcg/inh inhalation aerosol with adapter 2 puffs, Inhalation, 4 times a day, PRN Wheezing/Shortness of Breath, 90 days supply, # 3 each, 1 Refills, Maintenance, 10/21/22 11:03:00 EDT, [facility] [id number], 163, cm,10/14/22 8:43:00 EDT, Height, 122, kg, 05/02/22 15:... Start Date: 10/21/22 Status: Ordered Victoza 18 mg/3 mL subcutaneous solution = 1.2 mg, Subcutaneous Infusion, Daily, # 15 mL, 11 Refills, Maintenance, 06/02/22 16:53:00 EST, [facility] [id number], Partial fill upon patient request if the [...] 4, 5 Confirmed Active BHN/CCA/CP-Jo Ann Harvey [phone]/Health skilled nursing active care coordination Confirmed Active [...] Care Team Personnel Name: Kwame Bolton Position: [facility] PCO Associate Professional Member Role: PCP Address: Address: [address] [place] [address] [place] [address]- Name: Perri Perry RN Position: [facility] RN Member Role: Primary Care Nurse Name: Alicia Vallecillo RN Position: [facility] RN Member Role: Primary Care Nurse Name: Maureen Smith RN Position: [facility] RN Member Role: Primary Care Nurse Name: Sultana Broussard RN Position: [facility] RN Member Role: Primary Care Nurse Name: Abigail Dior RN Position: [facility] RN Member Role: Primary Care Nurse Name: Ivette Carter RN Position: [facility] RN Member Role: Primary Care Nurse Name: Rukhsana Matthews RN Position: [facility] Hospital Printing Gray Cloth Tender Member Role: Primary Care Nurse Care Team Related Persons Name: TANA MENDOZA Address: [place] [address] Name: MARIA TERESA UMAÑA Address: [address] [place] [address] Name: ANG GAFFNEY Address: [address] [place] [address] Name: CHILO AHMADI Address: home [address] [address]
--- OUTSIDE RECORDS SUMMARY | 2023-09-15 07:42 | XMS_ITS | Continuity of Care Document ---
Author Organization [facility] Address [address] [place] [address]- Care Team Providers Care Stay Cutter Name Role Phone Kwame Bolton Primary Care Physician [phone] [facility]counter [facility]): 08/06/23 - 09/05/23 [facility] [address] [place], [place] [phone] Allergies, Adverse Reactions, Alerts Substance Reaction Severity [...] vaccine, inactivated 5 02/26/09 Gi cecile SARS-CoV-2(COVID-19)mRNA-LNP vac([id number]) 02/25/23 Recorded SARS-CoV-2 (COVID-19) mRNA-1273 vaccine 6 [...] Comment: [02/16/2023] Given at [facility] Averecord can be obtained from [facility] 2Result Comment: [02/22/2017] [facility] [id number] 3Admin Note: flulaval vis given vis date 11/16/2011 4Admin Note: VIS GIVEN VIS DATE 12/24/2009 5Admin Note: VIS GIVEN 12/25/08 kuwaiti 6Result Comment: new booster 7Result Comment: dose 2 8Result Comment: dose 1 9Result Comment: Received at [facility] [place] 10Admin Note: vis given 11Admin Note: vis given 12Result Comment: [id number] exp 06/2009 13Admin Note: vis given Medications [...] EST, Compound Start Date: 07/12/19 Status: Ordered [place] Saline 0.65% nasal gel 1 sprays, Nares, Both, 4 times a day, # 22.5 Gm, 1 Refills, Maintenance, 08/20/23 15:42:00 EDT, [facility] [id number], Partial fill upon patient request if the prescription is for a schedule II opioid drug., 1 sprays Nares, Kilo... Start Date: 08/20/23 Status: Ordered B-Complex with B-12 oral tablet See Instructions, TAKE 1 TABLET BY MOUTH ONCE DAILY WITH FOOD, # 90 tablet, 1 Refills, Maintenance,05/28/23 17:52:00 EST, [facility] [id number], 90, TAKE 1 TABLET BY MOUTH ONCE DAILY WITH FOOD, 163, cm, 05/06/23 8:47:00 EST,... Start Date: 05/28/23 Status: Ordered Biotene Moisturizing Mouth oral spray 1 sprays, By Mouth, 6 times a day, BIOTENE NAME BRAND MAY BE REQUIRED, # 240 mL, 5 Refills, Maintenance, 11/18/22 8:47:00 EDT, [facility] [id number], Partial fill upon patient request if the prescription is for a schedule II o... Start Date: 11/18/22 Status: Ordered Cane See Instructions, # 1 each, Maintenance, DX LEFT KNEE PAIN /ACL TEAR /ARTHRITIS DX CODE M25.562 HT 163 CM WT 123 KG DURATION -LIETIME PATIENTS CANE ASHUTOSH, 01/06/19 8:36:49 EDT, Compound Start Date: 01/06/19 Status: Ordered Comfort EZ Pen [place] 32 gauge x 5/32 Comfort EZ Pen [place] 32 gauge x 5/32 , See Instructions, [...] each, 5 Refills, Maintenance, 03/17/23 9:55:00 EDT, [facility] [id number], Partial fill upon patient request if the prescription is for a schedule II... Start Date: 03/17/23 Status: Ordered docusate sodium 100 mg oral capsule 1 capsule, By Mouth, 2 times a day, # 60 each, 5 Refills, Maintenance, 05/14/23 10:27:00 EST, [facility], 163, cm, 05/06/23 8:47:00 EST, Height, 122, kg, 05/02/22 15:20:00 EST, Dry Weight Start Date: 05/14/23 Status: Ordered Ear Pain MD 4% otic liquid 2 drops, Ears, Both, 3 times a day, PRN Pain , Moderate, # 12.5 mL, 0 Refills, Maintenance, 01/04/23 21:24:00 EDT, [facility] [id number], Partial fill upon patient request ifthe prescription [...] tablet, 5 Refills, Maintenance, 05/27/23 18:43:00 EST, [facility], 163, cm, 05/06/23 8:47:00 EST, Height, 122, kg, 05/02/22 15:20:00 EST, Dry Weight Start Date: 05/27/23 Status: Ordered fluticasone 50 mcg/inh nasal spray 1 sprays, Nares, Both, Daily, # 16 Gm, 2 Refills, Maintenance, 07/13/23 18:31:00 EST, [place], [place] - [id number], Partial fill upon patient request if the prescription is for a schedule II opioid drug., 1 sprays Nares, Both Daily,... Start Date: 07/13/23 Status: Ordered furosemide 40 mg oral tablet 1, tablet, By Mouth, 2 times a day, # 60 tablet, Refills 5, Maintenance, 04/13/23 13:49:00 EST, Route to Pharmacy Electronically, [facility], 163, cm, 04/12/23 8:10:00 EST, [...] tablet, 2 Refills, Maintenance, 02/15/23 18:46:00 EDT, [facility], 163, cm, 01/20/23 8:13:00 EDT, Height, 122, kg, 05/02/22 15:20:00 EST, Dry Weight Start Date: 02/15/23 Status: Ordered MiraLax oral powder for reconstitution = 17 Gm, By Mouth, Daily, PRN Constipation, dissolve in 4 to 8 oz of beverage, # 24 each, 0 Refills, Maintenance, 08/25/23 18:22:00 EDT, [facility] [id number], Partial fill upon patient request if the prescription is for a pino... Start Date: 08/25/23 Status: Ordered Nicotrol Inhaler 10 mg inhalation device See Instructions, To use with nicotine cartridges in place of cigarettes, # 3 each, 0 Refills, Maintenance, 08/31/22 9:43:00 EDT, [place], [place] - [id number], Partial fill upon patient request if the prescription is for a schedule I... Start Date: 08/31/22 Status: Ordered NO RINSE SHAMPOO CAP NO RINSE SHAMPOO CAP, See Instructions, # 15 each, Refills 11, Tot. Refills 11, Maintenance, DX: CHF WEAKNESS 150.9 R53.1, 11/28/18 9:21:33 EDT, Compound Start Date: 11/28/18 Status: Ordered NuLYTELY Lemon [place] oral powder for reconstitution See Instructions, Stay [...] mL, 5 Refills, Maintenance, 04/05/23 18:38:00 EST, [facility], 163, cm, 03/15/23 8:28:00 EDT, Height, [...] Start Date: 01/31/20 Status: Ordered Potassium Chloride (Zac-Nyuc-Lsv M20) 20 mEq oral tablet, extended release 1 tablet, By Mouth, Daily, # 30 tablet, 2 Refills, Maintenance, 08/13/23 15:40:00 EDT, [place], [place] - [id number], 163, cm, 08/13/23 13:24:00 EDT, Height, 122, kg, 05/02/22 15:20:00 EST, Dry Weight Start Date: 08/13/23 Status: Ordered pulse dose evaluation pulse dose evaluation, See Instructions, # 1 each, Refills 0, Tot. Refills 0, Maintenance, Pulse Dose Evaluation dx: copd,chf 150.9, j44.9, 01/31/20 16:26:00 EDT, Supply Start Date: 01/31/20 Status: Ordered Readi-Cat 2 Smoothie Banana 2% oral suspension See Instructions, As directed sedimentationist to CT, # 900 mL, 0 Refills, Maintenance, 08/18/23 10:48:00 EDT, [facility], Partial fill upon patient request if the prescription is for a scheduleII opioid drug., As directed sedimentationist to CT, 163, cm... Start Date: 08/18/23 Status: Ordered Roflumilast 500 mcg oral tablet 1 tablet, By Mouth, Daily, # 30 tablet, 2 Refills, Maintenance, 08/13/23 15:40:00 EDT, [place], [place] - [id number], 163, cm, 08/13/23 13:24:00 EDT, Height, 122, [...] tablet, 5 Refills, Maintenance, 07/13/23 18:30:00 EST, [place], [place] - [id number], please dispense in bubble pack. dose increase... Start Date: 07/13/23 Status: Ordered square orthopedic pillow with central square depression and surrounding bolster square orthopedic pillow with central square depression and surrounding bolster, See Instructions, # 1 each, Refills 0, Tot. Refills 0, Maintenance, Product number [id number] Dx codes: M54.2 Duration: lifetime, 07/21/22 14:25:00 EST, Supply Start Date: 07/21/22 Status: Ordered traZODone 150 mg oral tablet 3 tablet, By Mouth, Daily at bedtime, # 270 tablet, 6 Refills, 10/26/22 10:18:00 EDT, [place], [place] - [id number], 163, cm, 10/14/22 8:43:00 EDT, Height, 122, kg, 05/02/22 15:20:00EST, Dry Weight Start Date: 10/26/22 Status: Ordered Trelegy Ellipta 200 mcg-62.5 mcg-25 mcg/inh inhalation powder 1 puffs, Inhalation, Daily, at the same time every day, # 9 each, 3 Refills, Maintenance, 08/31/22 9:41:00 EDT, Powder, [place], [place] - [id number], Partial fill upon patient request if the prescription is for a schedule II opioid d... Start Date: 08/31/22 Status: Ordered value series power lift chair [id number] value series power lift chair [id number], See Instructions, # 1 each, Refills 0, Tot. Refills 0, Maintenance, Diagnosis codes: G89.29, M19.90, J44.9, Z74.09, 01/30/20 9:31:00 EDT, Supply Start Date: 01/30/20 Status: Ordered Ventolin HFA 108 mcg/inh inhalation aerosol with adapter 2 puffs, Inhalation, 4 times a day, PRN NEEDED FOR SHORTNESS OF BREATH OR FOR WHEEZING, # 18 Gm,5 Refills, Maintenance, 04/13/23 13:49:00 EST, [facility], 163, cm, 04/12/23 8:10:00 EST, Height, [...] 4, 5 Confirmed Active BHN/CCA/CP-Jo Ann Harvey [phone]/Health residential active care coordination Confirmed Active BHN/CCA/LCC Lisa Gutierrez [phone]/Health residential active care coordination Confirmed Active Severe [...] Care Team Personnel Name: Kwame Bolton Position: [facility] PCO Associate Professional Member Role: PCP Address: Address: [address] [place] [address] [place] [address]- Name: Perri Perry RN Position: S RN Member Role: Primary Care Nurse Name: Alicia Vallecillo RN Position: S RN Member Role: Primary Care Nurse Name: Андрей Boo RN Position: [facility] Outreach Member Role: Primary Care Nurse Name: Maureen Smith RN Position: [facility] RN Member Role: Primary Care Nurse Name: Sultana Broussard RN Position: [facility] RN Member Role: Primary Care Nurse Name: Abigail Dior RN Position: [facility] RN Member Role: Primary Care Nurse Name: Ivette Carter RN Position: [facility] RN Member Role: Primary Care Nurse Name: Rukhsana Matthews RN Position: [facility] Hospital Lamp Decorator Member Role: Primary Care Nurse Care Team Related Persons Name: KELLY TANA Address: [place] [address] Name: MARIA TERESA UMAÑA Address: home [address] [place] [address] Name: ANG GAFFNEY Address: home [address] [place] [address] Name: CHILO AHMADI Address: home [address] [address]
--- OUTSIDE RECORDS SUMMARY | 2023-09-15 07:42 | XMS_ITS | Continuity of Care Document ---
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 in [place] 4Admin Note: vis given 5Admin Note: vis given 6Result Comment: [02/22/2017] formerly named [facility] [id number] 7Admin Note: flulaval vis given vis date 11/16/2011 8Admin Note: VIS GIVEN VIS DATE 12/24/2009 9Admin Note: VIS GIVEN 12/25/08 e[place]ian 10Result Comment: [01/03/2018 Uncharted] ERROR NOT GIVEN 11Result Comment: [id number] exp 06/2009 12Admin Note: vis given Medications [...] tablet, 2 Refills, Maintenance, 04/29/21 8:24:00 EST, [place], [place] - [id number], 163, cm, 04/29/21 8:04:00 EST, Height Start Date: 04/29/21 Status: Ordered Comfort EZ Pen [place] 32 gauge x 5/32 Comfort EZ Pen [place] 32 gauge x 5/32 , See Instructions, # 50 Unknown, 11 Refills, USE DAILY WITHvictoza injection, 163, cm, 03/25/21 9:16:00 EST, Height Start Date: 04/01/21 Status: Ordered Comfort EZ Pen [place] 32 gauge x 5/32 Comfort EZ Pen [place] 32 gauge x 5/32 , See Instructions, # 50 Unknown, 0 Refills, USE DAILY WITH victoza injection, 163, cm, 12/18/20 9:01:00 EDT, Height Start Date: 02/05/21 Status: Ordered Daliresp 500 mcg oral tablet 1 tablet, By Mouth, Daily, # 30 tablet, 6 Refills, [facility], 163, cm, 04/29/21 8:04:00 EST, Height Start Date: 05/02/21 Status: Ordered docusate sodium 100 mg oral capsule 1 capsule, By Mouth, Daily, # 60 each, 5 Refills, Maintenance, 04/04/21 11:02:00 EST, [place], [place] - [id number], 163, cm, 03/25/21 9:16:00 EST, Height Start [...] tablet, Refills 6, Route to Pharmacy Electronically, [facility], 163, cm, 04/29/21 8:04:00 EST, Height Start Date: 05/02/21 Status: Ordered guaiFENesin 100 mg/5 mL oral liquid 20 mL = 400 mg, By Mouth, 2 times a day, for congestion, cough. with fluids, # 240 mL, 0 Refills, Maintenance, 04/14/21 8:42:00 EST, [place], [place] - [id number], Partial fill upon patient request if the [...] NEEDEDFOR SEVERE PAIN, Route to Pharmacy Electronically, [facility], 163, cm, 03/25/21 9:16:00 EST, Height [...] 02/26/21 9:41:00 EDT, Route to Pharmacy Electronically, [place], [place] - [id number], Partialfill upon patient request if the prescription [...] Start Date: 01/31/20 Status: Ordered Potassium Chloride (Axi-Dfsr-Fco M20) 20 mEq oral tablet, extended release 1 tablet, By Mouth, Daily, # 30 tablet, 6 Refills, [facility], 163, cm, 04/29/21 8:04:00 EST, Height [...] tablet = 50 mg, By Mouth, Daily, dose increase to 50mg 02/26/21., # 30 tablet, 2 Refills, Maintenance, 03/10/21 14:32:00 EDT, [place], [place] - [id number], Partial fill upon patient request if the prescription is for a schedule II... Start Date: 03/10/21 Status: Ordered square orthopedic pillow with central square depression and surrounding bolster square orthopedic pillow with central square depression and surrounding bolster, See Instructions, # 1 each, Refills 0, Tot. Refills 0, Maintenance, Product number [id number] Dx codes: M54.2 Duration: lifetime, 02/27/21 19:03:00 EDT, Supply Start Date: 02/27/21 Status: Ordered traZODone 150 mg oral tablet 3 tablet, By Mouth, Daily at bedtime, # 90 tablet, 2 Refills, [facility], 163, cm, 02/26/21 9:06:00 EDT, Height Start Date: 03/02/21 Status: Ordered triamcinolone 0.025% topical cream 1 applicator, Topically, 3 times a day, PRN eczema, # 80 Gm, 2 Refills, Maintenance, 08/16/19 15:48:00 EDT, [place], [place] -, 1 applicator Topically 3 times a day,PRN:eczema, 163, cm, 07/11/19 13:24:00 EST, Height, 114, kg, 04/19/18... Start Date: 08/16/19 Status: Ordered value series power lift chair [id number] value series power lift chair [id number], See Instructions, # 1 each, Refills 0, Tot. Refills 0, Maintenance, Diagnosis codes: G89.29, M19.90, J44.9, Z74.09, 01/30/20 9:31:00 EDT, Supply Start Date: 01/30/20 Status: Ordered Ventolin HFA 108 mcg/inh inhalation aerosol with adapter 2 puffs, Inhalation, 4 times a day, PRN Wheezing/Shortness of Breath, 90 days supply, # 1 each, 5 Refills, Maintenance, 10/07/20 6:45:00 EDT, [facility] [id number], 163, cm, 09/24/20 13:25:00 EDT, Height Start Date: 10/07/20 Status: Ordered Victoza 18 mg/3 mL subcutaneous solution = 1.2 mg, Subcutaneous Infusion, Daily, dose increase to 1.2mg qd 04/29/21., # 15 mL, 5 Refills, Maintenance, 04/29/21 8:26:00 EST, [facility] [id number], Partial fill upon patient request if the prescription is for a schedule... Start Date: 04/29/21 Status: Ordered Vitamin B Complex oral tablet, extended release 1 tablet, By Mouth, Daily, with food., # 90 tablet, 3 Refills, Maintenance, 12/18/20 10:26:00 EDT, [facility] [id number], Partial fill upon patient request if the prescription is for a schedule II opioid drug., 1 tablet By Rosana... Start Date: 12/18/20 Stop Date: 12/13/21 Status: Ordered Vitamin D3 1000 intl units oral tablet 1 tablet = 1,000 International_Units, By Mouth, Daily, # 30 tablet, 5 Refills, Maintenance, 01/31/21 13:11:00 EDT, [facility] [id number], 163, cm, 12/18/20 9:01:00 EDT, Height Start [...] apnea(Confirmed) 4, 5 Active BHN/CCA/CP-Jo Ann Harvey [phone]/Health [facility] active care coordination(Confirmed) Active Severe obesity(Confirmed) Active [...]
--- OUTSIDE RECORDS SUMMARY | 2023-09-15 07:42 | XMS_ITS | Continuity of Care Document ---
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 Name Role Phone Kwame Bolton Primary Care Physician [phone] Encounter [facility] Date(s): 09/16/22 - 11/13/22 [facility] [address] [place] [id number] Attending Physician: Not on Staff, Attending [...] 3Result Comment: dose 1 4Result Comment: [02/22/2017] [facility] [id number] 5Admin Note: flulaval vis given vis date 11/16/2011 6Admin Note: VIS GIVEN VIS DATE 12/24/2009 7Admin Note: VIS GIVEN 12/25/08 [place] 8Result Comment: Received at [facility] on [facility] [place] [place] 9Admin Note: vis given 10Admin Note: vis given 11Result Comment: [01/03/2018 Uncharted] ERROR NOT GIVEN 12Result Comment: [id number] exp 06/2009 13Admin Note: vis given Medications [...] WITH FOOD, # 90 tablet, 3 Refills, [facility], 90, TAKE ONE TABLET BY MOUTH DAILY WITH FOOD, 163, cm, 09/26/21 13:20:00 EDT, Height Start Date: 12/15/21 Status: Ordered Biotene Moisturizing Mouth oral spray 1 sprays, By Mouth, 6 times a day, BIOTENE NAME BRAND MAY BE REQUIRED, # 240 mL, 1 Refills, Maintenance, 09/17/22 10:19:00 EDT, [facility] [id number], Partial fill upon patient request if the prescription is for a schedule II... Start Date: 09/17/22 Status: Ordered busPIRone 10 mg oral tablet 10 mg, 1, tablet, By Mouth, 3 times a day, for anxiety, # 90 tablet, Refills 0, Tot. Refills 0, Maintenance, 03/03/22 14:49:00 EDT, Route to Pharmacy Electronically, [facility] [id number], Partial fill upon patient request if... Start [...] mL, 1 Refills, Maintenance, 03/03/22 14:52:00 EDT, [facility] [id number], Partial fill uponpatient request if the prescription is for a schedu... Start Date: 03/03/22 Status: Ordered Comfort EZ Pen [place] 32 gauge x 5/32 Comfort EZ Pen [place] 32 gauge x 5/32 , See Instructions, # 50 Unknown, 11 Refills, USE DAILY WITHvictoza injection, 163, cm, 03/25/21 9:16:00 EST, Height Start Date: 04/01/21 Status: Ordered Comfort EZ Pen [place] 32 gauge x 5/32 Comfort EZ Pen [place] 32 gauge x 5/32 , See Instructions, # 50 Unknown, 0 Refills, USE DAILY WITH victoza injection, 163, cm, 12/18/20 9:01:00 EDT, Height Start Date: 02/05/21 Status: Ordered Comfort EZ Pen [place] 32 gauge x 5/32 Comfort EZ Pen [place] 32 gauge x 5/32 , See Instructions, # 50 Unknown, 11 Refills, Maintenance, USE DAILY WITH victoza injection, 06/04/22 11:52:00 EST, 164, cm, 06/02/22 16:10:00 EST, Height, 122,kg, 05/02/22 15:20:00 EST, Dry Weight Start Date: 06/04/22 Status: Ordered D3 1000 intl units (25 mcg) oral tablet 1 tablet, By Mouth, Daily, # 30 tablet, 5 Refills, 06/24/22 11:25:00 EST, [facility] [place], [place] - [id number], 164, cm, 06/02/22 16:10:00 EST, Height, 122, kg, 05/02/22 15:20:00 EST, Dry Weight Start Date: 06/24/22 Status: Ordered Daliresp 500 mcg oral tablet 1 tablet, By Mouth, Daily, # 30 tablet, 6 Refills, [facility], 163, cm, 09/26/21 13:20:00 EDT,Height Start Date: 11/14/21 Status: Ordered docusate sodium 100 mg oral capsule 1 capsule, By Mouth, Daily, # 60 each, 5 Refills, Maintenance, 02/18/22 11:21:00 EDT, [facility], 163, cm, 12/29/21 9:41:00 [...] tablet, 1 Refills, Maintenance, 10/21/22 11:07:00 EDT, [facility], 163, cm, 10/14/22 8:43:00 EDT, Height, 122, kg, 05/02/22 15:20:00 EST, Dry Weight Start Date: 10/21/22 Status: Ordered Flonase 50 mcg/inh nasal spray 1 sprays, Nares, Both, Daily, # 16 Gm, 0 Refills, Maintenance, 04/13/22 12:06:00 EST, [place], [facility] [id number], Partial fill upon patient request if the prescription is for a schedule II opioid drug., 1 sprays Nares, Both... Start Date: 04/13/22 Stop Date: 05/13/22 Status: Ordered furosemide 40 mg oral tablet 1, tablet, By Mouth, 2 times a day, # 60 tablet, Refills 5, Maintenance, 10/21/22 11:08:00 EDT, Route to Pharmacy Electronically, [facility], 163, cm, 10/14/22 8:43:00 EDT, Height, 122, kg, 05/02/22 15:20:00 EST, Dry Weight Start Date: 10/21/22 Status: Ordered guaiFENesin 100 mg/5 mL oral liquid 20 mL = 400 mg, By Mouth, 2 times a day, for congestion, cough. with fluids, # 240 mL, 0 Refills, Maintenance, 04/14/21 8:42:00 EST, [facility] [id number], Partial fill upon patient request if the [...] 08/18/22 11:21:00 EDT, Route to Pharmacy Electronically, [facility] - [place], [place] - [id number], 1... Start Date: 08/18/22 Status: Ordered ibuprofen 800 mg oral tablet 1, tablet, By Mouth, Every 8 hours, PRN, TAKE WITH FOOD OR MILK, # 60 tablet, Refills 0, Maintenance, NEEDED FOR SEVERE PAIN, 02/18/22 11:21:00 EDT, Route to Pharmacy Electronically, [facility], 163, cm, 12/29/21 9:41:00 [...] 07/23/22 10:02:00 EST, Route to Pharmacy Electronically, [facility], 164, cm, 07/21/22 8:59:00 EST, Height, 122, kg, 05/02/22 15:20:00 EST, Dry Weight Start Date: 07/23/22 Status: Ordered magnesium gluconate 250 mg oral tablet 1 tablet = 250 mg, By Mouth, 2 times a day, # 60 tablet, 2 Refills, Maintenance, 09/22/22 17:27:00 EDT, [facility] [id number], Partial fill upon patient request if the [...] each, 0 Refills, Maintenance, 08/31/22 9:43:00 EDT, [facility] [id number], Partial fill upon patient request if the [...] each, 5 Refills, Maintenance, 09/16/22 8:19:00 EDT, [place], [place] - [id number], please stop victoza, 0.25 mg Subcutaneous Infusion Every week, 163, cm, 09/16/22 7:13:00 EDT, Height,... Start Date: 09/16/22 Status: Ordered portable oxygen concentrator portable oxygen concentrator, See Instructions, # 1 each, Refills 0, Tot. Refills 0, Maintenance, Dx severe COPD. Codes J44.9, R09.02, 01/31/20 16:26:00 EDT, Compound Start Date: 01/31/20 Status: Ordered Potassium Chloride (Czn-Tlns-Mgo M20) 20 mEq oral tablet, extended release 1 tablet, By Mouth, Daily, # 30 tablet, 6 Refills, Maintenance, 05/25/22 17:29:00 EST, [facility], 164, cm, 05/02/22 15:20:00 EST, [...] tablet, 5 Refills, Maintenance, 08/18/22 11:22:00 EDT, [facility] [id number], please dispense in bubble pack. dose increase... Start Date: 08/18/22 Status: Ordered square orthopedic pillow with central square depression and surrounding bolster square orthopedic pillow with central square depression and surrounding bolster, See Instructions, # 1 each, Refills 0, Tot. Refills 0, Maintenance, Product number [id number] Dx codes: M54.2 Duration: lifetime, 07/21/22 14:25:00 EST, Supply Start Date: 07/21/22 Status: Ordered traZODone 150 mg oral tablet 3 tablet, By Mouth, Daily at bedtime, # 270 tablet, 6 Refills, 10/26/22 10:18:00 EDT, [facility] [id number], 163, cm, 10/14/22 8:43:00 EDT, Height, 122, kg, 05/02/22 15:20:00EST, Dry Weight Start Date: 10/26/22 Status: Ordered Trelegy Ellipta 200 mcg-62.5 mcg-25 mcg/inh inhalation powder 1 puffs, Inhalation, Daily, at the same time every day, # 9 each, 3 Refills, Maintenance, 08/31/22 9:41:00 EDT, Powder, [facility] [id number], Partial fill upon patient request if the prescription is for a schedule II opioid d... Start Date: 08/31/22 Status: Ordered value series power lift chair [id number] value series power lift chair [id number], See Instructions, # 1 each, Refills 0, Tot. Refills 0, Maintenance, Diagnosis codes: G89.29, M19.90, J44.9, Z74.09, 01/30/20 9:31:00 EDT, Supply Start Date: 01/30/20 Status: Ordered varenicline 1mg tablet 1 tablet, By Mouth, 2 times a day, # 56 tablet, 5 Refills, Physician Stop 06/24/23 11:28:00 EST, 06/24/22 11:30:00 EST, [facility] [id number], 164, cm, 06/02/22 16:10:00 EST,Height, 122, kg, 05/02/22 15:20:00 EST, Dry Weight Start Date: 06/24/22 Stop Date: 06/24/23 Status: Ordered Ventolin HFA 108 mcg/inh inhalation aerosol with adapter 2 puffs, Inhalation, 4 times a day, PRN Wheezing/Shortness of Breath, 90 days supply, # 3 each, 1 Refills, Maintenance, 10/21/22 11:03:00 EDT, [facility] [id number], 163, cm,10/14/22 8:43:00 EDT, Height, 122, kg, 05/02/22 15:... Start Date: 10/21/22 Status: Ordered Victoza 18 mg/3 mL subcutaneous solution = 1.2 mg, Subcutaneous Infusion, Daily, # 15 mL, 11 Refills, Maintenance, 06/02/22 16:53:00 EST, [facility] [id number], Partial fill upon patient request if the [...] 4, 5 Confirmed Active BHN/CCA/CP-Jo Ann Harvey [phone]/Health half-way active care coordination Confirmed Active Severe obesity [...] Care Team Personnel Name: Kwame Bolton Position: [facility] PCO Associate Professional Member Role: PCP Address: Address: [address] [place] [address] [place] [address]- Name: Perri Perry RN Position: [facility] RN Member Role: Primary Care Nurse Name: Alicia Vallecillo RN Position: [facility] RN Member Role: Primary Care Nurse Name: Maureen Smith RN Position: [facility] RN Member Role: Primary Care Nurse Name: Sultana Broussard RN Position: [facility] RN Member Role: Primary Care Nurse Name: Abigail Dior RN Position: [facility] RN Member Role: Primary Care Nurse Name: Ivette Carter RN Position: [facility] RN Member Role: Primary Care Nurse Name: Rukhsana Matthews RN Position: [facility] Hospital Bench Hand Machine Member Role: Primary Care Nurse Care Team Related Persons Name: TANA MENDOZA Address: [place] [address] Name: MARIA TERESA UMAÑA Address: home [address] [place] [address] Name: ANG GAFFNEY Address: home [address] [place] [address] Name: CHILO AHMADI Address: home [address] [address]
--- OUTSIDE RECORDS SUMMARY | 2023-09-15 07:43 | XMS_ITS | Continuity of Care Document ---
Author Organization [facility] Address [address] [place] [address]- Care Team Providers Care French Drawer Name Role Phone Kwame Bolton Primary Care Physician [place] [facility] [place]): [place]08[place] - 08/17/20 [facility] [address], [place] [address] Attending Physician: Kwame Bolton Admitting Physician: [...] (oldterm) 08/08/06 Given 1Result Comment: Received at [facility] on [facility] in [place] 2Admin Note: vis given 3Admin Note: vis given 4Result Comment: [02/22/2017] [facility] [id number] 5Admin Note: flulaval vis given vis date 11/16/2011 6Admin Note: VIS GIVEN VIS DATE 12/24/2009 7Admin Note: VIS GIVEN 12/25/08 arabic 8Result Comment: [01/03/2018 Uncharted] ERROR NOT GIVEN 9Result Comment: [id number] exp 06/2009 10Admin Note: vis given Medications [...] each, 5 Refills, Maintenance, 06/11/20 11:38:00 EST, [facility] - [place], [place] - [id number], 1 sprays By Mouth 6 times a day,Instr:please dispense 2 bottles per month... Start Date: 06/11/20 Status: Ordered Breo Ellipta 200 mcg-25 mcg/inh inhalation powder See Instructions, INHALE 1 PUFF BY MOUTH INTO THE lungs DAILY. rinse mouth and throat after use, # 60 Unknown, 11 Refills, 03/27/20 10:56:00 EST, [facility] [id number], 30, INHALE 1 PUFF BY MOUTH INTO [...] tablet, 0 Refills, Acute, 08/06/20 10:14:00 EDT, [facility], 163, cm, 07/31/20 13:11:00 EDT, Height Start Date: 08/06/20 Status: Ordered clonazePAM 0.5 mg oral tablet 2 tablet = 1 mg, By Mouth, 2 times a day, # 120 tablet, 2 Refills, Maintenance, 07/09/20 16:30:00 EST, [place], [place] - [id number], 163, cm, 07/08/20 9:27:00 EST, Height Start Date: 07/09/20 Stop Date: 10/07/20 Status: Ordered Daliresp 500 mcg oral tablet See Instructions, TAKE ONE TABLET BY MOUTH DAILY, # 30 tablet, 6 Refills, Maintenance, [facility], 163, cm, 03/05/20 13:58:00 EDT, Height, [...] Route to Pharmacy Electronically, [facility] [id number], 163, cm, 07/11/19 13:24:00 EST, Height, 114, kg... Start Date: 12/15/19 Status: Ordered docusate sodium 100 mg oral capsule See Instructions, TAKE ONE CAPSULE BY MOUTH 2 (two) times a day, # 60 capsule, 5 Refills, 03/27/20 10:56:00 EST, [facility] [id number], 163, cm, 03/05/20 13:58:00 EDT, Height, 114, [...] Gm, 5 Refills, Maintenance, 08/16/19 15:53:00 EDT, [place], [place] -, 1 sprays Nares, Both 2 times a day, 163, cm, 07/11/19 13:24:00 EST, Height, 114, kg, 04/19/18 23:58:00 EST, Dry Weight Start Date: 08/16/19 Status: Ordered furosemide 40 mg oral tablet 40 mg, 1, tablet, By Mouth, 2 times a day, # 60 tablet, Refills 5, Tot. Refills 5, Maintenance, 08/05/20 13:27:00 EDT, Route to Pharmacy Electronically, [facility] [id number], 163, cm, 07/31/20 13:11:00 EDT, Height Start [...] EST, Route to Pharmacy Electronically, [facility], 163, cm, 03/05/20 13:58:00 EDT, [...] 01/18/20 15:46:00 EDT, Route to Pharmacy Electronically, [facility]/pharmacy #[id number], 163, cm, 07/11/19 [...] Refills, Maintenance, 07/08/20 10:14:00 EST, CR Capsule, [facility] - [place], [place] - [id number], Partial fill upon patient request if the [...] 08/06/20 10:14:00 EDT, Route to Pharmacy Electronically, [facility], 163, cm, 07/31/20 13:11:00 EDT, [...] tablet, 5 Refills, Maintenance, 05/13/20 8:59:00 EST, [facility], 163, cm, 03/05/20 13:58:00 EDT, [...] Refills, Soft Stop, 01/17/20 11:40:00 EDT, Powder, [facility]/pharmacy #[id number], 0.5 mL Intramuscular Once,Instr:repeat dose in 2 to 6 months, 163, cm, 07/11/19 13:24:00 EST, Height, 114,... Start Date: 01/17/20 Status: Ordered traZODone 150 mg oral tablet 3 tablet = 450 mg, By Mouth, Daily at bedtime, Please d/c order for 300mg qhs. Correct dose 450mg qhs., # 90 tablet, 5 Refills, Maintenance, 03/27/20 10:57:00 EST, [place], [place] -[id number], 163, cm, 03/05/20 13:58:00 EDT, Height,... Start Date: 03/27/20 Status: Ordered triamcinolone 0.025% topical cream 1 applicator, Topically, 3 times a day, PRN eczema, # 80 Gm, 2 Refills, Maintenance, 08/16/19 15:48:00 EDT, [place], [place] -, 1 applicator Topically 3 times a day,PRN:eczema, 163, cm, 07/11/19 13:24:00 EST, Height, 114, kg, 04/19/18... Start Date: 08/16/19 Status: Ordered value series power lift chair [id number] value series power lift chair [id number], See Instructions, # 1 each, Refills 0, Tot. Refills 0, Maintenance, Diagnosis codes: G89.29, M19.90, J44.9, Z74.09, 01/30/20 9:31:00 EDT, Supply Start Date: 01/30/20 Status: Ordered Ventolin HFA 108 mcg/inh inhalation aerosol with adapter 2 puffs, Inhalation, 4 times a day, PRN Wheezing/Shortness of Breath, 90 days supply, # 1 each, 5 Refills, Maintenance, 04/15/20 17:48:00 EST, [facility], [facility] [id number], 163, cm,03/05/20 13:58:00 EDT, Height, 114, kg, 04/19/18 23... Start Date: 04/15/20 Status: Ordered verapamil 120 mg oral tablet 1 tablet, By Mouth, 3 times a day, home delivery please., # 90 tablet, 5 Refills, Maintenance, 05/21/20 11:21:00 EST, [facility], [facility] [id number], 163, cm, 03/05/20 13:58:00 EDT, Height Start Date: 05/21/20 Status: Ordered Vitamin D3 1000 intl units oral tablet 1 tablet = 1,000 International_Units, By Mouth, Daily, # 90 tablet, 1 Refills, Maintenance, 08/10/20 15:51:00 EDT, [facility], [facility] [id number], 163, cm, 07/31/20 13:11:00 EDT, Height Start [...] apnea(Confirmed) 4, 5 Active BHN/CCA/CP-Jo Ann Harvey [phone]/Health retirement active care coordination(Confirmed) Active 1Health Care Agent: [...]
--- OUTSIDE RECORDS SUMMARY | 2023-09-15 07:43 | XMS_ITS | Continuity of Care Document ---
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 Name Role Phone Kwame Bolton Primary Care Physician [phone] Encounter [facility] Date(s): 12/20/19 - 12/20/[address] [address]- [facility] Discharge Disposition: A-D/C Home Attending Physician: Nelson Muñoz DO Admitting Physician: Nelson Muñoz DO Referring Physician: Not on Staff, Referring MD [...] Vaccine (oldterm) 08/08/06 Given 1Result Comment: [02/22/2017] formerly named [facility] [id number] 2Admin Note: flulaval vis given vis date 11/16/2011 3Admin Note: VIS GIVEN VIS DATE 12/24/2009 4Admin Note: VIS GIVEN 12/25/08 lux[place]bourgish 5Result Comment: [01/03/2018 Uncharted] ERROR NOT GIVEN 6Result Comment: [id number] exp 06/2009 7Admin Note: vis given 8Admin [...] 08/16/19 15:54:00 EDT, Route to Pharmacy Electronically, [facility] - [place], [place] -, 163, cm, 07/11/19 13:24:00 EST, [...] 5 Refills, Maintenance, 08/16/19 15:52:00 EDT, Powder, [place], [place] -, 1 puffs Inhalation Daily,Instr:[place] [facility] [...] Acute 02/12/20 15:52:00 EDT, 08/16/19 15:52:00 EDT, [place], [place] -, 163, cm, 07/11/19 13:24:00 EST,Height, 114, kg, 04/19/18 23:58:00 EST, Dry Weight Start Date: 08/16/19 Stop Date: 02/12/20 Status: Ordered clonazePAM 0.5 mg oral tablet 2 tablet = 1 mg, By Mouth, 2 times a day, dose increased to 2 tabs bid 05/2018, # 120 tablet, 2 Refills, Maintenance, 11/22/19 8:21:00 EDT, [place], [place] -, 163, cm, 07/11/19 13:24:00 EST, Height, 114, kg, 04/19/18 23:58:00 ESTDr... Start Date: 11/22/19 Stop Date: 02/20/20 Status: Ordered Daliresp 500 mcg oral tablet See Instructions, 1 tablet By Mouth Daily, # 30 each, 6 Refills, Maintenance, 08/16/19 15:51:00 EDT, [place], [place] -, 163, cm, 07/11/19 13:24:00 EST, [...] 12/15/19 10:10:00 EDT, Route to Pharmacy Electronically, [place], [place] - [id number], 163, cm, 07/11/19 13:24:00 EST, Height, 114, [...] Gm, 5 Refills, Maintenance, 08/16/19 15:53:00 EDT, [place], [place] -, 1 sprays Nares, Both 2 times a day, 163, cm, 07/11/19 13:24:00 EST, Height, 114, kg, 04/19/18 23:58:00 EST, Dry Weight Start Date: 08/16/19 Status: Ordered furosemide 40 mg oral tablet 40 mg, 1, tablet, By Mouth, 2 times a day, # 60 tablet, Refills 5, Tot. Refills 5, Maintenance, 08/16/19 15:51:00 EDT, Route to Pharmacy Electronically, [place], [place] -, 163, cm, 07/11/19 13:24:00 EST, Height, 114, kg, 04/19/18 23:... Start Date: 08/16/19 Stop Date: 02/12/20 Status: Ordered guaiFENesin 100 mg/5 mL oral liquid 20 mL = 400 mg, By Mouth, Every 6 hours, PRN Cough and Congestion, with fluids, # 240 mL, 0 Refills, Maintenance, 09/28/19 14:14:00 EDT, [place], [place] -, 163, cm, 07/11/19 13:24:00 EST, [...] 12/05/19 8:40:00 EDT, Route to Pharmacy Electronically, [place], [place] -, 163, cm, 07/11/19 13:24:... Start [...] 30 tablet, 5 Refills, 11/13/19 14:32:00 EDT, [place], [place] -, 163, cm, 07/11/19 13:24:00 EST, [...] 09/28/19 14:13:00 EDT, Route to Pharmacy Electronically, [place], [place] -, 163, cm, 07/11/2012:24:00 EST, Height, [...] tablet, 5 Refills, Maintenance, 08/16/19 15:50:00 EDT, [place], [place] -, 163, cm, 07/11/19 13:24:00 EST, Height, 114, kg, 04/19/18 23:58:00EST, Dry Weight Start Date: 08/16/19 Status: Ordered pregabalin 100 mg oral capsule 1 capsule = 100 mg, By Mouth, 3 times a day, dose increase to 100mg tid 12/05/2019., # 90 capsule, 2Refills, Maintenance, 12/05/19 8:38:00 EDT, [place], [place] -, 163, cm, 07/11/19 13:24:00 EST, [...] tablet, 5 Refills, Maintenance, 08/16/19 15:52:00 EDT, [place], [place] -, 163, cm, 07/11/19 13:24:00 EST, Height, 114, kg, 1... Start Date: 08/16/19 Status: Ordered triamcinolone 0.025% topical cream 1 applicator, Topically, 3 times a day, PRN eczema, # 80 Gm, 2 Refills, Maintenance, 08/16/19 15:48:00 EDT, [place], [place] -, 1 applicator Topically 3 times a day,PRN:eczema, 163, cm, 07/11/19 13:24:00 EST, Height, 114, kg, 04/19/18... Start Date: 08/16/19 Status: Ordered Ventolin HFA 108 mcg/inh inhalation aerosol with adapter 2 puffs, Inhalation, 4 times a day, PRN Wheezing/Shortness of Breath, 90 days supply, # 1 each, 5 Refills, Maintenance, 08/16/19 15:53:00 EDT, [place], [place] -, 163, cm, 07/11/19 13:24:00 EST, Height, 114, kg, 04/19/18 23:58:00 EST,... Start Date: 08/16/19 Status: Ordered verapamil 120 mg oral tablet 1 tablet = 120 mg, By Mouth, 3 times a day, dose increase 120 tid 09/28/2019., # 90 tablet, 5 Refills, Maintenance, 11/13/19 14:41:00 EDT, [place], [place] -, 163, cm, 07/11/19 13:24:00 EST, Height, 114, kg, 04/19/18 23:58:00 EST, Dry... Start Date: 11/13/19 Status: Ordered Vitamin D3 1000 intl units oral tablet 1 tablet = 1,000 International_Units, By Mouth, Daily, # 90 tablet, 3 Refills, Maintenance, 08/16/19 15:51:00 EDT, [place], [place] -, 163, cm, 07/11/19 13:24:00 EST, [...] Most recent to oldest [Reference Range]: 1 2 3 Oxygen Saturation [94-100 %] 98 % (12/20/19 8:00 PM) 98 % (12/20/19 5:00 PM) 98 % (12/20/19 3:56 PM) Pulse Rate [55-90 bpm] 69 bpm (12/20/19 3:56 PM) Blood Pressure [90-138/55-84 mm Hg] 131/70mm Hg (12/20/19 8:00 PM) 132/73mm Hg (12/20/19 5:00 PM) 132/65mm Hg (12/20/19 3:56 PM) Respiratory Rate [16-30 br/min] 18 br/min (12/20/19 8:00 PM) 18 br/min (12/20/19 7:59 PM) 20 br/min (12/20/19 3:56 PM) Temperature [96.8-100.4 DegF] 98.0 DegF (12/20/19 8:00 PM) 98.0 DegF (12/20/19 3:56 PM) Liters per Minute 2 L/min (12/20/19 8:00 PM) 2 L/min (12/20/19 5:00 PM) 2 L/min (12/20/19 3:56 PM) Mode of Delivery (Oxygen) Nasal cannula (12/20/19 8:00 PM) Nasal cannula (12/20/19 5:00 PM) Nasal cannula (12/20/19 3:56 PM) Blood pressure sites Arm, left (12/20/19 8:00 PM) Arm, left (12/20/19 5:00 PM) Arm, left (12/20/19 3:56 PM) Temperature Route Oral (12/20/19 8:00 PM) Oral (12/20/19 3:56 PM) Social History Social History Type Response Smoking Status Current every day [place]; Type: Cigarettes; Interested in cessation: No; Tobacco use times per day: 15 a day; Started at age: 9; entered on: 02/06/14 Sex Female
--- OUTSIDE RECORDS SUMMARY | 2023-09-15 07:43 | XMS_ITS | Continuity of Care Document ---
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 Name Role Phone Kwame Bolton Primary Care Physician [facility]counter [facility] Date(s): 08/20/21 - 09/19/21 [facility] [address] [place] [id number] Allergies, Adverse Reactions, Alerts [...] 1 3Result Comment: Received at [facility] on [facility] in [place] 4Admin Note: vis given 5Admin Note: vis given 6Result Comment: [02/22/2017] [facility] [id number] 7Admin Note: flulaval vis given vis date 11/16/2011 8Admin Note: VIS GIVEN VIS DATE 12/24/2009 9Admin Note: VIS GIVEN 12/25/08 hungarian 10Result Comment: [01/03/2018 Uncharted] ERROR NOT GIVEN 11Result Comment: [id number] exp 06/2009 12Admin Note: vis given Medications [...] Date: 01/06/19 Status: Ordered Comfort EZ Pen [place] 32 gauge x 5/32 Comfort EZ Pen [place] 32 gauge x 5/32 , See Instructions, # 50 Unknown, 11 Refills, USE DAILY WITHvictoza injection, 163, cm, 03/25/21 9:16:00 EST, Height Start Date: 04/01/21 Status: Ordered Comfort EZ Pen [place] 32 gauge x 5/32 Comfort EZ Pen [place] 32 gauge x 5/32 , See Instructions, # 50 Unknown, 0 Refills, USE DAILY WITH victoza injection, 163, cm, 12/18/20 9:01:00 EDT, Height Start Date: 02/05/21 Status: Ordered D3 1000 intl units (25 mcg) oral tablet 1 tablet, By Mouth, Daily, # 30 tablet, 5 Refills, [facility], 163, cm, 07/09/21 8:06:00 EST, Height Start Date: 07/25/21 Status: Ordered Daliresp 500 mcg oral tablet 1 tablet, By Mouth, Daily, # 30 tablet, 6 Refills, [facility], 163, cm, 04/29/21 8:04:00 EST, Height Start Date: 05/02/21 Status: Ordered docusate sodium 100 mg oral capsule 1 capsule, By Mouth, Daily, # 60 each, 5 Refills, Maintenance, 04/04/21 11:02:00 EST, [facility] [place], [place] - [id number], 163, cm, 03/25/21 9:16:00 EST, Height Start [...] tablet, Refills 6, Route to Pharmacy Electronically, [facility], 163, cm, 04/29/21 8:04:00 EST, Height Start Date: 05/02/21 Status: Ordered guaiFENesin 100 mg/5 mL oral liquid 20 mL = 400 mg, By Mouth, 2 times a day, for congestion, cough. with fluids, # 240 mL, 0 Refills, Maintenance, 04/14/21 8:42:00 EST, [facility] [phone], Partial fill upon patient request if the prescription is for a schedu... Start Date: 04/14/21 Status: Ordered guaiFENesin 100 mg/5 mL oral liquid 10 mL = 200 mg, By Mouth, Every 6 hours, PRN Cough and Congestion, with fluids, # 240 mL, 0 Refills, Maintenance, 09/05/21 13:15:00 EDT, [facility] [phone], Partial fill upon patient request if the [...] NEEDEDFOR SEVERE PAIN, Route to Pharmacy Electronically, [facility], 163, cm, 03/25/21 9:16:00 EST, Height [...] 02/26/21 9:41:00 EDT, Route to Pharmacy Electronically, [place], [place] - [id number], Partialfill upon patient request if the prescription is fo... Start Date: 02/26/21 Status: Ordered Narcan 4 mg/0.1 mL nasal [...] Start Date: 01/31/20 Status: Ordered Potassium Chloride (Jnt-Roex-Sxl M20) 20 mEq oral tablet, extended release 1 tablet, By Mouth, Daily, # 30 tablet, 6 Refills, [facility], 163, cm, 04/29/21 8:04:00 EST, Height [...] Mouth, Daily, # 30 tablet, 2 Refills, [facility], 163, cm, 04/29/21 8:04:00 EST, Height Start Date: 05/28/21 Status: Ordered sertraline 50 mg oral tablet See Instructions, TAKE ONE TABLET BY MOUTH DAILY, # 30 tablet, 2 Refills, [facility], 163, cm,08/01/21 12:50:00 EDT, Height Start Date: 08/20/21 Status: Ordered square orthopedic pillow with central square depression and surrounding bolster square orthopedic pillow with central square depression and surrounding bolster, See Instructions, # 1 each, Refills 0, Tot. Refills 0, Maintenance, Product number [id number] Dx codes: M54.2 Duration: lifetime, 02/27/21 19:03:00 EDT, Supply Start Date: 02/27/21 Status: Ordered traZODone 150 mg oral tablet 3 tablet, By Mouth, Daily at bedtime, # 270 tablet, 1 Refills, Maintenance, 05/28/21 10:31:00 EST, [place], [place] - [id number], 163, cm, 04/29/21 8:04:00 EST, Height Start Date: 05/28/21 Status: Ordered triamcinolone 0.025% topical cream 1 applicator, Topically, 3 times a day, PRN eczema, # 80 Gm, 2 Refills, Maintenance, 08/16/19 15:48:00 EDT, [place], [place] -, 1 applicator Topically 3 times a day,PRN:eczema, 163, cm, 07/11/19 13:24:00 EST, Height, 114, kg, 04/19/18... Start Date: 08/16/19 Status: Ordered value series power lift chair [id number] value series power lift chair [id number], See Instructions, # 1 each, Refills 0, Tot. Refills 0, Maintenance, Diagnosis codes: G89.29, M19.90, J44.9, Z74.09, 01/30/20 9:31:00 EDT, Supply Start Date: 01/30/20 Status: Ordered varenicline 1mg tablet 1 tablet, By Mouth, 2 times a day, # 56 tablet, 5 Refills, [facility], 163, cm, 07/09/21 8:06:00 EST, Height Start Date: 07/25/21 Status: Ordered Ventolin HFA 108 mcg/inh inhalation aerosol with adapter 2 puffs, Inhalation, 4 times a day, PRN Wheezing/Shortness of Breath, 90 days supply, # 1 each, 5 Refills, Maintenance, 10/07/20 6:45:00 EDT, [facility] [id number], 163, cm, 09/24/20 13:25:00 EDT, Height Start Date: 10/07/20 Status: Ordered Victoza 18 mg/3 mL subcutaneous solution = 1.2 mg, Subcutaneous Infusion, Daily, dose increase to 1.2mg qd 04/29/21., # 15 mL, 5 Refills, Maintenance, 04/29/21 8:26:00 EST, [facility] [id number], Partial fill upon patient request if the prescription is for a schedule... Start Date: 04/29/21 Status: Ordered Vitamin B Complex oral tablet, extended release 1 tablet, By Mouth, Daily, with food., # 90 tablet, 3 Refills, Maintenance, 12/18/20 10:26:00 EDT, [facility] [id number], Partial fill upon patient request if the [...] apnea(Confirmed) 4, 5 Active BHN/CCA/CP-Jo Ann Harvey [phone]/Health [facility] active care coordination(Confirmed) Active Severe obesity(Confirmed) Active [...]
--- OUTSIDE RECORDS SUMMARY | 2023-09-15 07:43 | XMS_ITS | Continuity of Care Document ---
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 Date(s): 05/02/22 - 05/02/[address] [address]- Encounter Diagnosis COPD exacerbation(Final) - 05/02/22 HTN (hypertension)(Final) - 05/02/22 Heart failure(Final) - 05/02/22 Discharge Disposition: A-D/C AMA Attending Physician: Alfonso Britton MD Admitting Physician: Alfonso Britton MD Referring Physician: Not on Staff, Referring [...] Comment: dose 1 4Result Comment: Received at [facility] on [facility] in [place] 5Admin Note: vis given 6Admin Note: vis given 7Result Comment: [02/22/2017] [facility] [id number] 8Admin Note: flulaval vis given vis date 11/16/2011 9Admin Note: VIS GIVEN VIS DATE 12/24/2009 10Admin Note: VIS GIVEN 12/25/08 romanian 11Result Comment: [01/03/2018 Uncharted] ERROR NOT GIVEN 12Result Comment: [id number] exp 06/2009 13Admin Note: vis given Medications [...] # 90 tablet, 3 Refills, [facility], 90, TAKE ONE TABLET BY MOUTH DAILY WITH FOOD, 163, cm, 09/26/21 13:20:00 EDT, Height Start Date: 12/15/21 Status: Ordered Breo Ellipta 200 mcg-25 mcg/inh inhalation powder 1 puffs, Inhalation, Daily, rinse mouth and throat after use, # 60 Unknown, 5 Refills, Maintenance,02/18/22 11:21:00 EDT, [facility], 30, INHALE 1 PUFF BY MOUTH INTO THE lungs DAILY. rinse mouth and throat after use, 163, cm, 12/29/21 9:41:00 ED... Start Date: 02/18/22 Status: Ordered busPIRone 10 mg oral tablet 10 mg, 1, tablet, By Mouth, 3 times a day, for anxiety, # 90 tablet, Refills 0, Tot. Refills 0, Maintenance, 03/03/22 14:49:00 EDT, Route to Pharmacy Electronically, [facility] [id number], Partial fill upon patient request if... Start Date: 03/03/22 Status: Ordered Cane See Instructions, # 1 each, Maintenance, DX LEFT KNEE PAIN /ACL TEAR /ARTHRITIS DX CODE M25.562 HT 163 CM WT 123 KG DURATION -LIETIME PATIENTS MAGDALENADarryl ASHUTOSH, 01/06/19 8:36:49 EDT, Compound Start Date: 01/06/19 Status: Ordered Cleocin T 1% lotion See Instructions, Topically 2 times a day to affected area of face and nose., # 60 mL, 1 Refills, Maintenance, 03/03/22 14:52:00 EDT, [facility] [id number], Partial fill uponpatient request if the prescription is for a schedu... Start Date: 03/03/22 Status: Ordered Comfort EZ Pen [place] 32 gauge x 5/32 Comfort EZ Pen [place] 32 gauge x 5/32 , See Instructions, # 50 Unknown, 11 Refills, USE DAILY WITHvictoza injection, 163, cm, 03/25/21 9:16:00 EST, Height Start Date: 04/01/21 Status: Ordered Comfort EZ Pen [place] 32 gauge x 5/32 Comfort EZ Pen [place] 32 gauge x 5/32 , See Instructions, # 50 Unknown, 0 Refills, USE DAILY WITH victoza injection, 163, cm, 12/18/20 9:01:00 EDT, Height Start Date: 02/05/21 Status: Ordered D3 1000 intl units (25 mcg) oral tablet 1 tablet, By Mouth, Daily, # 30 tablet, 5 Refills, [facility], 163, cm, 09/26/21 13:20:00 EDT,Height Start Date: 12/22/21 Status: Ordered Daliresp 500 mcg oral tablet 1 tablet, By Mouth, Daily, # 30 tablet, 6 Refills, [facility], 163, cm, 09/26/21 13:20:00 EDT,Height Start Date: 11/14/21 Status: Ordered docusate sodium 100 mg oral capsule 1 capsule, By Mouth, Daily, # 60 each, 5 Refills, Maintenance, 02/18/22 11:21:00 EDT, [facility], 163, cm, 12/29/21 9:41:00 EDT, Height [...] Gm, 0 Refills, Maintenance, 04/13/22 12:06:00 EST, [place], [place], [place] - [phone], Partial fill upon patient request if the prescription is for a schedule II opioid drug., 1 sprays Nares, Both... Start Date: 04/13/22 Stop Date: 05/13/22 Status: Ordered furosemide 40 mg oral tablet 1, tablet, By Mouth, 2 times a day, # 60 tablet, Refills 5, Maintenance, 03/20/22 11:36:00 EDT, Route to Pharmacy Electronically, [facility], 163, cm, 03/03/22 9:51:00 EDT, Height Start Date: 03/20/22 Status: Ordered guaiFENesin 100 mg/5 mL oral liquid 20 mL = 400 mg, By Mouth, 2 times a day, for congestion, cough. with fluids, # 240 mL, 0 Refills, Maintenance, 04/14/21 8:42:00 EST, [place], [place] - [id number], Partial fill upon patient request if the [...] Pharmacy Electronically, [facility], 163, cm, 12/29/21 9:41:00 EDT, Height [...] 04/24/22 20:55:00 EST, Route to Pharmacy Electronically, [facility], 163, cm, 04/13/22 11:52:00 EST, Height Start Date: 04/24/22 Status: Ordered magnesium gluconate 250 mg oral tablet 1 tablet = 250 mg, By Mouth, 2 times a day, # 60 tablet, 2 Refills, Maintenance, 04/27/22 11:27:00 EST, [facility] - [place], [place] - [id number], Partial fill upon patient request if the [...] Start Date: 01/31/20 Status: Ordered Potassium Chloride (Zvd-Ctmi-Iru M20) 20 mEq oral tablet, extended release 1 tablet, By Mouth, Daily, # 30 tablet, 6 Refills, [facility], 163, cm, 09/26/21 13:20:00 EDT,Height Start [...] tablet, 3 Refills, Maintenance, 03/20/22 17:49:00 EDT, [facility], 163, cm, 03/03/22 9:51:00 EDT, Height Start Date: 03/20/22 Status: Ordered square orthopedic pillow with central square depression and surrounding bolster square orthopedic pillow with central square depression and surrounding bolster, See Instructions, # 1 each, Refills 0, Tot. Refills 0, Maintenance, Product number [id number] Dx codes: M54.2 Duration: lifetime, 02/27/21 19:03:00 EDT, Supply Start Date: 02/27/21 Status: Ordered traZODone 150 mg oral tablet 3 tablet, By Mouth, Daily at bedtime, # 270 tablet, 6 Refills, [facility], 163, cm, 09/26/21 13:20:00 EDT, Height Start Date: 11/14/21 Status: Ordered value series power lift chair ED112P value series power lift chair [id number], See Instructions, # 1 each, Refills 0, Tot. Refills 0, Maintenance, Diagnosis codes: G89.29, M19.90, J44.9, Z74.09, 01/30/20 9:31:00 EDT, Supply Start Date: 01/30/20 Status: Ordered varenicline 1mg tablet 1 tablet, By Mouth, 2 times a day, # 56 tablet, 5 Refills, [facility], 163, cm, 09/26/21 13:20:00 EDT, Height Start Date: 12/22/21 Status: Ordered Ventolin HFA 108 mcg/inh inhalation aerosol with adapter 2 puffs, Inhalation, 4 times a day, PRN Wheezing/Shortness of Breath, 90 days supply, # 1 each, 5 Refills, Maintenance, 04/14/22 16:26:00 EST, [facility] - [place], [place] - [phone], 163, cm,04/13/22 11:52:00 EST, Height Start Date: 04/14/22 Status: Ordered Victoza 18 mg/3 mL subcutaneous solution = 1.2 mg, Subcutaneous Infusion, Daily, dose increase to 1.2mg qd 04/29/21., # 15 mL, 5 Refills, Maintenance, 04/29/21 8:26:00 [facility], [facility] - [place], [place] - [id number], Partial fill upon patient request if the [...] 4, 5 Confirmed Active BHN/CCA/CP-Jo Ann Harvey [phone]/Health nursing home active care coordination Confirmed Active Severe obesity Confirmed Active 1Health Care Agent: Tana Porter, 2along with endo cervical curettage 3bilateral R>L 4titration results reviewed - CPAP at 14 cm H2O. If remained symptomatic then a trial of BiPAP due to hypoventilation component. 5PSG done on 04/04/2007 - severe KIANA, desat to 83%. 42% of night below 90%. Results Radiology Reports * Exam Date Time Procedure Performing Provider Status 05/02/22 10:30 AM Chest 2 Views Frontal and Lat Rachel Balderrama; Auth (Verified) Notes: (Chest 2 Views Frontal and Lat) Reason For Exam: Chest Pain;Other: RESULT: Chest 2 Views Frontal and Lat Chest 2 Views Frontal and Lat Hx of Present Illness: pt here with CP and SOB increasing x 3 days from home hx of COPD CHF; Reason: Other:; Chest Pain; Clinical Question(s): CHF COMPARISON: 07/05/2017 FINDINGS: LINES AND TUBES: None. LUNGS AND PLEURA: There is increased pulmonary interstitial and vascular markings. No pleural effusion. No pneumothorax. HEART, MEDIASTINUM AND REILLY: Heart is normal in size. Normal mediastinal and hilar contour. BONES AND SOFT TISSUES: No acute abnormality. IMPRESSION: Volume overload. WSN: [id number] Ordering Physician: Ernst Becerra Dictated By: Franklin Hendrickson MD Dictated Date/Time: 05/02/22 10:34 a Reviewed By: Franklin Hendrickson MD Signed By: Franklin Hendrickson MD Signed Date/Time: 05/02/22 10:34 am Transcribed By: TYREE Transcribed Date/Time: 05/02/22 10:34 am Vital Signs Most recent to oldest [Reference Range]: 1 2 3 Height 164 cm (05/02/22 3:20 PM) Oxygen Saturation [94-100 %] 96 % (05/02/22 2:58 PM) 93 % *L* (05/02/22 11:57 AM) 97 % (05/02/22 9:58 AM) Pulse Rate [55-90 bpm] 89 bpm (05/02/22 2:58 PM) 89 bpm (05/02/22 11:57 AM) 79 bpm (05/02/22 9:58 AM) Blood Pressure [90-138/55-84 mm Hg] 164/95mm Hg *H* (05/02/22 2:58 PM) 148/73mm Hg *H* (05/02/22 11:57 AM) 196/94mm Hg *H* (05/02/22 9:58 AM) Respiratory Rate [16-30 br/min] 20 br/min (05/02/22 2:58 PM) 20 br/min (05/02/22 11:57 AM) 19 br/min (05/02/22 9:58 AM) Temperature [96.8-100.4 DegF] 99.2 DegF (05/02/22 2:58 PM) 98.0 DegF (05/02/22 9:58 AM) Liters per Minute 2 L/min (05/02/22 2:58 PM) 1 L/min (05/02/22 11:57 AM) 2 L/min (05/02/22 9:58 AM) Mode of Delivery (Oxygen) Nasal cannula (05/02/22 2:58 PM) Nasal cannula (05/02/22 11:57 AM) Nasal cannula (05/02/22 9:58 AM) Blood pressure sites Arm, left (05/02/22 2:58 PM) Arm, left (05/02/22 11:57 AM) Arm, left (05/02/22 9:58 AM) Temperature Route Oral (05/02/22 2:58 PM) Oral (05/02/22 9:58 AM) Dry Weight 122 kg (05/02/22 3:20 PM) Social History Social History Type Response Smoking Status Current every day sm oker; Type: Cigarettes; Interested in cessation: No; Tobacco use times per day: 15 a day; Started at age: 9; entered on: 02/06/14 Sex Female EKG study * Event Display: ECG 12-Lead Authored Date: Please click on pdf link to open report * Event Display: ECG 12-Lead Authored Date: Ventricular Rate: 84 BPM Atrial Rate: 84 BPM P-R Interval: 108 ms QRS Duration: 86 ms Q-T Interval: 384 ms QTC Calculation(Bazett): 453 ms P Trappe: 86 degrees R Trappe: 59 degrees T Trappe: 66 degrees Sinus rhythm with short [place] Nonspecific ST abnormality Abnormal ECG When compared with ECG of 29-AUG-2020 10:06, No significant change was found Confirmed by BRIE RICHARDSON [facility] ([id number]) on 05/02/2022 11:52:45 AM [place]: [facility] Progress note * Kathy Byrd RN: PERFORM, SIGN, VERIFY Event Display: Progress [facility] Authored Date: [id number] Patient: BREANA OLEARY Age: 56 years Sex: Female : 1965 Associated Diagnoses: None Author: Kathy Byrd RN Findings Pt left AMA, knows if symptoms get worse to come to the ED. IV was taken out. Patient was brought to the [facility] where her ride was waiting. Note * BHSPowerscribe , CIS S: TRANSCRIBE Madhavi RICHARDSON, Franklin H: VERIFY Event Display: Result: Authored Date: [id number] Chest 2 Views Frontal and Lat Hx of Present Illness: pt here with CP and SOB increasing x 3 days from home hx of COPD CHF; Reason: Other:; Chest Pain; Clinical Question(s): CHF COMPARISON: 07/05/2017 FINDINGS: LINES AND TUBES: None. LUNGS AND PLEURA: There is increased pulmonary interstitial and vascular markings. No pleural effusion. No pneumothorax. HEART, MEDIASTINUM AND REILLY: Heart is normal in size. Normal mediastinal and hilar contour. BONES AND SOFT TISSUES: No acute abnormality. IMPRESSION: Volume overload. WSN: [id number] Ordering Physician: Ernst Becerra Dictated By: Franklin Hendrickson MD Dictated Date/Time: 05/02/22 10:34 a Reviewed By: Franklin Hendrickson MD Signed By: Franklin Hendrickson MD Signed Date/Time: 05/02/22 10:34 am Transcribed By: TYREE Transcribed Date/Time: 05/02/22 10:34 am Patient Care team information Care Team Personnel Name: Kwame Bolton Position: [facility] PCO Associate Professional Member Role: PCP Address: Address: [address] [place] [address] Name: Perri Perry RN Position: [facility] RN Member Role: Primary Care Nurse Name: Alicia Vallecillo RN Position: [facility] RN Member Role: Primary Care Nurse Name: Maureen Smith RN Position: [facility] RN Member Role: Primary Care Nurse Name: Sultana Broussard RN Position: [facility] RN Member Role: Primary Care Nurse Name: Abigail Dior RN Position: [facility] RN Member Role: Primary Care Nurse Name: Ivette Carter RN Position: [facility] RN Member Role: Primary Care Nurse Name: Rukhsana Matthews RN Position: [facility] Hospital Immigration Case Worker Member Role: Primary Care Nurse Name: Jorje Crobin MD Position: [facility] ED Medicine MD Member Role: ED Attending Physician Address: Address: [address] [place] [address] Name: Christine Fink Position: [facility] ED TA [facility] Member Role: Salesperson Neckties Name: Ernst Becerra DO Position: [facility] Resident Member Role: Resident Address: Address: [address] [place] [address] Name: Gab Sánchez RN Position: [facility] ED RN W/OE and Tasks Member Role: Patient Care Provider Care Team Related Persons Name: TANA MENDOZA Address: [place] [address] Name: MARIA TERESA UMAÑA Address: home [address] [place] [address] Name: ANG GAFFNEY Address: home [address] [place] [address] Name: CHILO AHMADI Address: home [address] [address]
--- OUTSIDE RECORDS SUMMARY | 2023-09-15 07:43 | XMS_ITS | Continuity of Care Document ---
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 [id number] 7Admin Note: flulaval vis given vis date 11/16/2011 8Admin Note: VIS GIVEN VIS DATE 12/24/2009 9Admin Note: VIS GIVEN 12/25/08 tamazight 10Result Comment: [01/03/2018 Uncharted] ERROR NOT GIVEN 11Result Comment: [id number] exp 06/2009 12Admin Note: vis given Medications [...] Date: 01/06/19 Status: Ordered Comfort EZ Pen [place] 32 gauge x 5/32 Comfort EZ Pen [place] 32 gauge x 5/32 , See Instructions, # 50 Unknown, 11 Refills, USE DAILY WITHvictoza injection, 163, cm, 03/25/21 9:16:00 EST, Height Start Date: 04/01/21 Status: Ordered Comfort EZ Pen [place] 32 gauge x 5/32 Comfort EZ Pen [place] 32 gauge x 5/32 , See Instructions, # 50 Unknown, 0 Refills, USE DAILY WITH victoza injection, 163, cm, 12/18/20 9:01:00 EDT, Height Start Date: 02/05/21 Status: Ordered D3 1000 intl units (25 mcg) oral tablet 1 tablet, By Mouth, Daily, # 30 tablet, 5 Refills, [facility], 163, cm, 07/09/21 8:06:00 EST, Height Start Date: 07/25/21 Status: Ordered Daliresp 500 mcg oral tablet 1 tablet, By Mouth, Daily, # 30 tablet, 6 Refills, [facility], 163, cm, 04/29/21 8:04:00 EST, Height Start Date: 05/02/21 Status: Ordered docusate sodium 100 mg oral capsule 1 capsule, By Mouth, Daily, # 60 each, 5 Refills, Maintenance, 04/04/21 11:02:00 EST, [facility] [place], [place] - [id number], 163, cm, 03/25/21 9:16:00 EST, Height Start [...] tablet, Refills 6, Route to Pharmacy Electronically, [facility], 163, cm, 04/29/21 8:04:00 EST, Height Start Date: 05/02/21 Status: Ordered guaiFENesin 100 mg/5 mL oral liquid 20 mL = 400 mg, By Mouth, 2 times a day, for congestion, cough. with fluids, # 240 mL, 0 Refills, Maintenance, 04/14/21 8:42:00 EST, [facility] [id number], Partial fill upon patient request if the prescription is for a schedu... Start Date: 04/14/21 Status: Ordered guaiFENesin 100 mg/5 mL oral liquid 10 mL = 200 mg, By Mouth, Every 6 hours, PRN Cough and Congestion, with fluids, # 240 mL, 0 Refills, Maintenance, 09/05/21 13:15:00 EDT, [facility] [id number], Partial fill upon patient request if the [...] See Instructions, # 1 each, Maintenance, DX: COPD,ASTHMA,KAINA,CERVICAL DISC DISEASES, CHRONIC PAIN JJ44.9,G47.33 M50.9MG89.29 DURATION- LIFETIME, 03/29/19 16:31:32 EST, Compound Start Date: 03/29/19 Status: Ordered ibuprofen 800 mg oral tablet 1, tablet, By Mouth, Every 8 hours, PRN, TAKE WITH FOOD OR MILK, # 60 tablet, Refills 11, NEEDEDFOR SEVERE PAIN, Route to Pharmacy Electronically, [facility], 163, cm, 03/25/21 9:16:00 EST, [...] 02/26/21 9:41:00 EDT, Route to Pharmacy Electronically, [place], [place] - [id number], Partialfill upon patient request if the prescription [...] Start Date: 01/31/20 Status: Ordered Potassium Chloride (Mkq-Opeb-Uwd M20) 20 mEq oral tablet, extended release 1 tablet, By Mouth, Daily, # 30 tablet, 6 Refills, [facility], 163, cm, 04/29/21 8:04:00 EST, [...] Mouth, Daily, # 30 tablet, 2 Refills, [facility], 163, cm, 04/29/21 8:04:00 EST, Height Start Date: 05/28/21 Status: Ordered sertraline 50 mg oral tablet See Instructions, TAKE ONE TABLET BY MOUTH DAILY, # 30 tablet, 2 Refills, [facility], 163, cm,08/01/21 12:50:00 EDT, Height Start Date: 08/20/21 Status: Ordered square orthopedic pillow with central square depression and surrounding bolster square orthopedic pillow with central square depression and surrounding bolster, See Instructions, # 1 each, Refills 0, Tot. Refills 0, Maintenance, Product number [id number] Dx codes: M54.2 Duration: lifetime, 02/27/21 19:03:00 EDT, Supply Start Date: 02/27/21 Status: Ordered traZODone 150 mg oral tablet 3 tablet, By Mouth, Daily at bedtime, # 270 tablet, 1 Refills, Maintenance, 05/28/21 10:31:00 EST, [place], [place] - [id number], 163, cm, 04/29/21 8:04:00 EST, Height Start Date: 05/28/21 Status: Ordered triamcinolone 0.025% topical cream 1 applicator, Topically, 3 times a day, PRN eczema, # 80 Gm, 2 Refills, Maintenance, 08/16/19 15:48:00 EDT, [place], [place] -, 1 applicator Topically 3 times a day,PRN:eczema, 163, cm, 07/11/19 13:24:00 EST, Height, 114, kg, 04/19/18... Start Date: 08/16/19 Status: Ordered value series power lift chair [id number] value series power lift chair [id number], See Instructions, # 1 each, Refills 0, Tot. Refills 0, Maintenance, Diagnosis codes: G89.29, M19.90, J44.9, Z74.09, 01/30/20 9:31:00 EDT, Supply Start Date: 01/30/20 Status: Ordered varenicline 1mg tablet 1 tablet, By Mouth, 2 times a day, # 56 tablet, 5 Refills, [facility], 163, cm, 07/09/21 8:06:00 EST, Height Start Date: 07/25/21 Status: Ordered Ventolin HFA 108 mcg/inh inhalation aerosol with adapter 2 puffs, Inhalation, 4 times a day, PRN Wheezing/Shortness of Breath, 90 days supply, # 1 each, 5 Refills, Maintenance, 10/07/20 6:45:00 EDT, [facility] [id number], 163, cm, 09/24/20 13:25:00 EDT, Height Start Date: 10/07/20 Status: Ordered Victoza 18 mg/3 mL subcutaneous solution = 1.2 mg, Subcutaneous Infusion, Daily, dose increase to 1.2mg qd 04/29/21., # 15 mL, 5 Refills, Maintenance, 04/29/21 8:26:00 EST, [facility] [phone], Partial fill upon patient request if the prescription is for a schedule... Start Date: 04/29/21 Status: Ordered Vitamin B Complex oral tablet, extended release 1 tablet, By Mouth, Daily, with food., # 90 tablet, 3 Refills, Maintenance, 12/18/20 10:26:00 EDT, [facility] [phone], Partial fill upon patient request if the [...] apnea(Confirmed) 4, 5 Active BHN/CCA/CP-Jo Ann Harvey [phone]/Health [facility] active care coordination(Confirmed) Active Severe obesity(Confirmed) [...]
--- OUTSIDE RECORDS SUMMARY | 2023-09-15 07:43 | XMS_ITS | Continuity of Care Document ---
Author Organization [facility] Address [address] [place] [address]- Care Team Providers Care Supervisor Final Name Role Phone Kwame Bolton Primary Care Physician [facility]s): 10[facility]19 - 11/25/19 [facility] [address] [place] [address]- [facility] Attending Physician: Not on Staff, Attending MD [...] (oldterm) 08/08/06 Given 1Result Comment: [02/22/2017] [facility] [id number] 2Admin Note: flulaval vis given vis date 11/16/2011 3Admin Note: VIS GIVEN VIS DATE 12/24/2009 4Admin Note: VIS GIVEN 12/25/08 sami 5Result Comment: [01/03/2018 Uncharted] ERROR NOT GIVEN 6Result Comment: [id number] exp 06/2009 7Admin Note: vis given 8Admin [...] 08/16/19 15:54:00 EDT, Route to Pharmacy Electronically, [place], [place] -, 163, cm, 07/11/19 13:24:00 ESTWin... [...] 5 Refills, Maintenance, 08/16/19 15:52:00 EDT, Powder, [place], [place] -, 1 puffs Inhalation Daily,Instr:[place] [...] Acute 02/12/20 15:52:00 EDT, 08/16/19 15:52:00 EDT, [place], [place] -, 163, cm, 07/11/19 13:24:00 EST,Height, 114, kg, 04/19/18 23:58:00 EST, Dry Weight Start Date: 08/16/19 Stop Date: 02/12/20 Status: Ordered clonazePAM 0.5 mg oral tablet 2 tablet = 1 mg, By Mouth, 2 times a day, dose increased to 2 tabs bid 05/2018, # 120 tablet, 2 Refills, Maintenance, 11/22/19 8:21:00 EDT, [place], [place] -, 163, cm, 07/11/19 13:24:00 EST, Height, 114, kg, 04/19/18 23:58:00 EST, . Start Date: 11/22/19 Stop Date: 02/20/20 Status: Ordered Daliresp 500 mcg oral tablet See Instructions, 1 tablet By Mouth Daily, # 30 each, 6 Refills, Maintenance, 08/16/19 15:51:00 EDT, [place], [place] -, 163, cm, 07/11/19 13:24:00 EST, [...] Maintenance, 08/15/2014:51:00 EDT, Route to Pharmacy Electronically, [place], [place] -, 163, cm, 07/11/19 13:24:00 EST, [...] Gm, 5 Refills, Maintenance, 08/16/19 15:53:00 EDT, [place], [place] -, 1 sprays Nares, Both 2 times a day, 163, cm, 07/11/19 13:24:00 EST, Height, 114, kg, 04/19/18 23:58:00 EST, Dry Weight Start Date: 08/16/19 Status: Ordered furosemide 40 mg oral tablet 40 mg, 1, tablet, By Mouth, 2 times a day, # 60 tablet, Refills 5, Tot. Refills 5, Maintenance, 08/16/19 15:51:00 EDT, Route to Pharmacy Electronically, [place], [place] -, 163, cm, 07/11/19 13:24:00 EST, Height, 114, kg, 04/19/18 23:... Start Date: 08/16/19 Stop Date: 02/12/20 Status: Ordered guaiFENesin 100 mg/5 mL oral liquid 20 mL = 400 mg, By Mouth, Every 6 hours, PRN Cough and Congestion, with fluids, # 240 mL, 0 Refills, Maintenance, 09/28/19 14:14:00 EDT, [place], [place] -, 163, cm, 07/11/19 13:24:00 EST, [...] Tot. Refills 1, Maintenance, Pain , Severe, 10/26/19 17:49:00 EDT, Route to Pharmacy Electronically, [place], [place] -, 163, cm, 07/11/19 13:24... Start Date: 10/26/19 Status: Ordered INCONCTINENCE LINERS SUPER ABSORBANT INCONCTINENCE [...] EDT, Compound Start Date: 10/17/18 Status: Ordered Klor-Con M20 20 mEq oral tablet, extended release See Instructions, TAKE 1 TABLET BY MOUTH EVERY DAY, # 30 tablet, 5 Refills, 11/13/19 14:32:00 EDT, [place], [place] -, 163, cm, 07/11/19 13:24:00 EST, [...] 09/28/19 14:13:00 EDT, Route to Pharmacy Electronically, [facility] [place] [place] -, 163, cm, 07/11/2012:24:00 EST, [...] tablet, 5 Refills, Maintenance, 08/16/19 15:50:00 EDT, [place], [place] -, 163, cm, 07/11/19 13:24:00 EST, Height, 114, kg, 04/19/18 23:58:00EST, Dry Weight Start Date: 08/16/19 Status: Ordered pregabalin 75 mg oral capsule 1 capsule = 75 mg, By Mouth, 3 times a day, dose increase to 75mg tid effective 11/10/19, # 90 capsule, 5 Refills, Maintenance, 11/13/19 14:39:00 EDT, [place], [place] -, 163, cm, 07/11/19 13:24:00 EST, Height, 114, kg, 04/19/18 23:58:... Start Date: 11/13/19 Status: Ordered traZODone 150 mg oral tablet 3 tablet = 450 mg, By Mouth, Daily at bedtime, Please d/c order for 300mg qhs. Correct dose 450mg qhs., # 90 tablet, 5 Refills, Maintenance, 08/16/19 15:52:00 EDT, [place], [place] -, 163, cm, 07/11/19 13:24:00 EST, Height, 114, kg, 1... Start Date: 08/16/19 Status: Ordered triamcinolone 0.025% topical cream 1 applicator, Topically, 3 times a day, PRN eczema, # 80 Gm, 2 Refills, Maintenance, 08/16/19 15:48:00 EDT, [place], [place] -, 1 applicator Topically 3 times a day,PRN:eczema, 163, cm, 07/11/19 13:24:00 EST, Height, 114, kg, 04/19/18... Start Date: 08/16/19 Status: Ordered Ventolin HFA 108 mcg/inh inhalation aerosol with adapter 2 puffs, Inhalation, 4 times a day, PRN Wheezing/Shortness of Breath, 90 days supply, # 1 each, 5 Refills, Maintenance, 08/16/19 15:53:00 EDT, [place], [place] -, 163, cm, 07/11/19 13:24:00 EST, Height, 114, kg, 04/19/18 23:58:00 EST,... Start Date: 08/16/19 Status: Ordered verapamil 120 mg oral tablet 1 tablet = 120 mg, By Mouth, 3 times a day, dose increase 120 tid 09/28/2019., # 90 tablet, 5 Refills, Maintenance, 11/13/19 14:41:00 EDT, [place], [place] -, 163, cm, 07/11/19 13:24:00 EST, Height, 114, kg, 04/19/18 23:58:00 EST, Dry... Start Date: 11/13/19 Status: Ordered Vitamin D3 1000 intl units oral tablet 1 tablet = 1,000 International_Units, By Mouth, Daily, # 90 tablet, 3 Refills, Maintenance, 08/16/19 15:51:00 EDT, [place], [place] -, 163, cm, 07/11/19 13:24:00 EST, [...]
--- OUTSIDE RECORDS SUMMARY | 2023-09-15 07:43 | XMS_ITS | Continuity of Care Document ---
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 Name Role Phone Kwame Bolton Primary Care Physician [facility]s): 10[facility]19 - 10/19/19 [facility] [address] [place] [address]- [facility] Attending Physician: Kwame Bolton Allergies, Adverse [...] Vaccine (oldterm) 08/08/06 Given 1Result Comment: [02/22/2017] [facility] [id number] 2Admin Note: flulaval vis given vis date 11/16/2011 3Admin Note: VIS GIVEN VIS DATE 12/24/2009 4Admin Note: VIS GIVEN 12/25/08 kiswahili 5Result Comment: [01/03/2018 Uncharted] ERROR NOT GIVEN 6Result Comment: [id number] exp 06/2009 7Admin Note: vis given 8Admin [...] 08/16/19 15:54:00 EDT, Route to Pharmacy Electronically, [place], [place] -, 163, cm, 07/11/19 13:24:00 ESTWin... [...] 5 Refills, Maintenance, 08/16/19 15:52:00 EDT, Powder, [place], [place] -, 1 puffs Inhalation Daily,Instr:[place] [...] Acute 02/12/20 15:52:00 EDT, 08/16/19 15:52:00 EDT, [place], [place] -, 163, cm, 07/11/19 13:24:00 EST,Height, 114, kg, 04/19/18 23:58:00 EST, Dry Weight Start Date: 08/16/19 Stop Date: 02/12/20 Status: Ordered clonazePAM 0.5 mg oral tablet 2 tablet = 1 mg, By Mouth, 2 times a day, dose increased to 2 tabs bid 05/2018, # 120 tablet, 2 Refills, Maintenance, 08/16/19 15:49:00 EDT, [place], [place] -, 163, cm, 07/11/19 13:24:00 EST, Height, 114, kg, 04/19/18 23:58:00 EST, D... Start Date: 08/16/19 Stop Date: 11/14/19 Status: Ordered Daliresp 500 mcg oral tablet See Instructions, 1 tablet By Mouth Daily, # 30 each, 6 Refills, Maintenance, 08/16/19 15:51:00 EDT, [place], [place] -, 163, cm, 07/11/19 13:24:00 EST, [...] Maintenance, 08/15/2014:51:00 EDT, Route to Pharmacy Electronically, [place], [place] -, 163, cm, 07/11/19 13:24:00 EST, [...] Gm, 5 Refills, Maintenance, 08/16/19 15:53:00 EDT, [place], [place] -, 1 sprays Nares, Both 2 times a day, 163, cm, 07/11/19 13:24:00 EST, Height, 114, kg, 04/19/18 23:58:00 EST, Dry Weight Start Date: 08/16/19 Status: Ordered furosemide 40 mg oral tablet 40 mg, 1, tablet, By Mouth, 2 times a day, # 60 tablet, Refills 5, Tot. Refills 5, Maintenance, 08/16/19 15:51:00 EDT, Route to Pharmacy Electronically, [place], [place] -, 163, cm, 07/11/19 13:24:00 EST, Height, 114, kg, 04/19/18 23:... Start Date: 08/16/19 Stop Date: 02/12/20 Status: Ordered guaiFENesin 100 mg/5 mL oral liquid 20 mL = 400 mg, By Mouth, Every 6 hours, PRN Cough and Congestion, with fluids, # 240 mL, 0 Refills, Maintenance, 09/28/19 14:14:00 EDT, [place], [place] -, 163, cm, 07/11/19 13:24:00 EST, [...] 09/06/19 15:51:00 EDT, Route to Pharmacy Electronically, [facility] [place], [place] -, 163, cm, 07/11/19 13:24... Start [...] 09/28/19 14:13:00 EDT, Route to Pharmacy Electronically, [place], [place] -, 163, cm, 07/11/2012:24:00 EST, Height, [...] tablet, 5 Refills, Maintenance, 08/16/19 15:50:00 EDT, [place], [place] -, 163, cm, 07/11/19 13:24:00 EST, Height, 114, kg, 04/19/18 23:58:00EST, Dry Weight Start Date: 08/16/19 Status: Ordered pregabalin 25 mg oral capsule 1 capsule = 25 mg, By Mouth, 3 times a day, for chronic pain. please stop tizanidine., # 90 capsule, 2 Refills, Maintenance, 09/21/19 15:58:00 EDT, [place], [place] -, 163, cm, 07/11/19 13:24:00 EST, Height, 114, kg, 04/19/18 23:58:00... Start Date: 09/21/19 Status: Ordered pregabalin 50 mg oral capsule 1 capsule = 50 mg, By Mouth, 3 times a day, dose increase 50 tid 09/28/2019, # 90 capsule, 0 Refills, Maintenance, 09/28/19 14:16:00 EDT, [place], [place] -, 163, cm, 07/11/19 13:24:00 EST, Height, 114, kg, 04/19/18 23:58:00 EST, Dry W... Start Date: 09/28/19 Status: Ordered traZODone 150 mg oral tablet 3 tablet = 450 mg, By Mouth, Daily at bedtime, Please d/c order for 300mg qhs. Correct dose 450mg qhs., # 90 tablet, 5 Refills, Maintenance, 08/16/19 15:52:00 EDT, [place], [place] -, 163, cm, 07/11/19 13:24:00 EST, Height, 114, kg, 1... Start Date: 08/16/19 Status: Ordered triamcinolone 0.025% topical cream 1 applicator, Topically, 3 times a day, PRN eczema, # 80 Gm, 2 Refills, Maintenance, 08/16/19 15:48:00 EDT, [place], [place] -, 1 applicator Topically 3 times a day,PRN:eczema, 163, cm, 07/11/19 13:24:00 EST, Height, 114, kg, 04/19/18... Start Date: 08/16/19 Status: Ordered Ventolin HFA 108 mcg/inh inhalation aerosol with adapter 2 puffs, Inhalation, 4 times a day, PRN Wheezing/Shortness of Breath, 90 days supply, # 1 each, 5 Refills, Maintenance, 08/16/19 15:53:00 EDT, [place], [place] -, 163, cm, 07/11/19 13:24:00 EST, Height, 114, kg, 04/19/18 23:58:00 EST,... Start Date: 08/16/19 Status: Ordered verapamil 120 mg oral tablet 1 tablet = 120 mg, By Mouth, 3 times a day, dose increase 120 tid 09/28/2019., # 90 tablet, 0 Refills, Maintenance, 09/28/19 14:28:00 EDT, [place], [place] -, 163, cm, 07/11/19 13:24:00 EST, Height, 114, kg, 04/19/18 23:58:00 EST, Dry... Start Date: 09/28/19 Status: Ordered verapamil 80 mg oral tablet 1 tablet = 80 mg, By Mouth, 3 times a day, dose increase 09/21/2019. for migraine prevention, # 90 tablet, 2 Refills, Maintenance, 09/21/19 15:40:00 EDT, [place], [place] -, 163, cm, 07/11/19 13:24:00 EST, Height, 114, kg, 04/19/18 23:5... Start Date: 09/21/19 Status: Ordered Vitamin D3 1000 intl units oral tablet 1 tablet = 1,000 International_Units, By Mouth, Daily, # 90 tablet, 3 Refills, Maintenance, 08/16/19 15:51:00 EDT, [place], [place] -, 163, cm, 07/11/19 13:24:00 EST, [...]
--- OUTSIDE RECORDS SUMMARY | 2023-09-15 07:43 | XMS_ITS | Continuity of Care Document ---
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 Name Role Phone Kwame Bolton Primary Care Physician [phone] [facility]counter [facility] Date[facility]): 09[facility]22 - 10/07/22 [facility] [address] [place] [address] [[email or web address]] Allergies, Adverse Reactions, Alerts Substance Reaction Severity [...] Comment: dose 1 4Result Comment: [02/22/2017] [facility] [id number] 5Admin Note: flulaval vis given vis date 11/16/2011 6Admin Note: VIS GIVEN VIS DATE 12/24/2009 7Admin Note: VIS GIVEN 12/25/08 belarusian 8Result Comment: Received at [facility] on [facility] in [place] 9Admin Note: vis given 10Admin Note: vis given 11Result Comment: [01/03/2018 Uncharted] ERROR NOT GIVEN 12Result Comment: [id number] exp 06/2009 13Admin Note: vis given Medications [...] WITH FOOD, # 90 tablet, 3 Refills, [facility], 90, TAKE ONE TABLET BY MOUTH DAILY WITH FOOD, 163, cm, 09/26/21 13:20:00 EDT, Height Start Date: 12/15/21 Status: Ordered Biotene Moisturizing Mouth oral spray 1 sprays, By Mouth, 6 times a day, BIOTENE NAME BRAND MAY BE REQUIRED, # 240 mL, 1 Refills, Maintenance, 09/17/22 10:19:00 EDT, [facility] [id number], Partial fill upon patient request if the prescription is for a schedule II... Start Date: 09/17/22 Status: Ordered busPIRone 10 mg oral tablet 10 mg, 1, tablet, By Mouth, 3 times a day, for anxiety, # 90 tablet, Refills 0, Tot. Refills 0, Maintenance, 03/03/22 14:49:00 EDT, Route to Pharmacy Electronically, [facility] [id number], Partial fill upon patient request if... Start [...] mL, 1 Refills, Maintenance, 03/03/22 14:52:00 EDT, [facility] [id number], Partial fill uponpatient request if the prescription is for a schedu... Start Date: 03/03/22 Status: Ordered Comfort EZ Pen [place] 32 gauge x 5/32 Comfort EZ Pen [place] 32 gauge x 5/32 , See Instructions, # 50 Unknown, 11 Refills, USE DAILY WITHvictoza injection, 163, cm, 03/25/21 9:16:00 EST, Height Start Date: 04/01/21 Status: Ordered Comfort EZ Pen [place] 32 gauge x 5/32 Comfort EZ Pen [place] 32 gauge x 5/32 , See Instructions, # 50 Unknown, 0 Refills, USE DAILY WITH victoza injection, 163, cm, 12/18/20 9:01:00 EDT, Height Start Date: 02/05/21 Status: Ordered Comfort EZ Pen [place] 32 gauge x 5/32 Comfort EZ Pen [place] 32 gauge x 5/32 , See Instructions, # 50 Unknown, 11 Refills, Maintenance, USE DAILY WITH victoza injection, 06/04/22 11:52:00 EST, 164, cm, 06/02/22 16:10:00 EST, Height, 122,kg, 05/02/22 15:20:00 EST, Dry Weight Start Date: 06/04/22 Status: Ordered D3 1000 intl units (25 mcg) oral tablet 1 tablet, By Mouth, Daily, # 30 tablet, 5 Refills, 06/24/22 11:25:00 EST, [place], [place] - [id number], 164, cm, 06/02/22 16:10:00 EST, Height, 122, [...] each, 5 Refills, Maintenance, 02/18/22 11:21:00 EDT, [facility], 163, cm, [...] tablet, 1 Refills, Maintenance, 08/18/22 11:20:00 EDT, [facility], [facility] [id number], please dispense in separate bottle., 164, cm, 07/21/22 8:59... Start Date: 08/18/22 Status: Ordered Flonase 50 mcg/inh nasal spray 1 sprays, Nares, Both, Daily, # 16 Gm, 0 Refills, Maintenance, 04/13/22 12:06:00 EST, [place] [id number], Partial fill upon patient request if the prescription is for a schedule II opioid drug., 1 sprays Nares, Both... Start Date: 04/13/22 Stop Date: 05/13/22 Status: Ordered furosemide 40 mg oral tablet 1, tablet, By Mouth, 2 times a day, # 60 tablet, Refills 5, Maintenance, 03/20/22 11:36:00 EDT, Route to Pharmacy Electronically, [facility], 163, cm, 03/03/22 9:51:00 EDT, Height Start Date: 03/20/22 Status: Ordered guaiFENesin 100 mg/5 mL oral liquid 20 mL = 400 mg, By Mouth, 2 times a day, for congestion, cough. with fluids, # 240 mL, 0 Refills, Maintenance, 04/14/21 8:42:00 EST, [facility] [id number], Partial fill upon patient request if the [...] 08/18/22 11:21:00 EDT, Route to Pharmacy Electronically, [facility] - [place], [place] - [id number], 1... Start Date: 08/18/22 Status: Ordered ibuprofen [...] Daily, # 30 tablet, Refills 5, Maintenance, 03/09/23 10:02:00 EST, Route to Pharmacy Electronically, [facility], 164, cm, 07/21/22 8:59:00 EST, Height, 122, kg, 05/02/22 15:20:00 EST, Dry Weight Start Date: 07/23/22 Status: Ordered magnesium gluconate 250 mg oral tablet 1 tablet = 250 mg, By Mouth, 2 times a day, # 60 tablet, 2 Refills, Maintenance, 09/22/22 17:27:00 EDT, [facility], [facility] [id number], Partial fill upon patient request if the [...] each, 0 Refills, Maintenance, 08/31/22 9:43:00 EDT, [place], [place] - [id number], Partial fill upon patient request if the [...] each, 5 Refills, Maintenance, 09/16/22 8:19:00 EDT, [place], [place] - [id number], please stop victoza, 0.25 mg Subcutaneous Infusion Every week, 163, cm, 09/16/22 7:13:00 EDT, Height,... Start Date: 09/16/22 Status: Ordered portable oxygen concentrator portable oxygen concentrator, See Instructions, # 1 each, Refills 0, Tot. Refills 0, Maintenance, Dx severe COPD. Codes J44.9, R09.02, 01/31/20 16:26:00 EDT, Compound Start Date: 01/31/20 Status: Ordered Potassium Chloride (Yjz-Gsem-Ggh M20) 20 mEq oral tablet, extended release 1 tablet, By Mouth, Daily, # 30 tablet, 6 Refills, Maintenance, 05/25/22 17:29:00 EST, [facility], 164, cm, 05/02/22 15:20:00 [...] tablet, 5 Refills, Maintenance, 08/18/22 11:22:00 EDT, [place], [place] - [id number], please dispense in bubble pack. dose increase... Start Date: 08/18/22 Status: Ordered square orthopedic pillow with central square depression and surrounding bolster square orthopedic pillow with central square depression and surrounding bolster, See Instructions, # 1 each, Refills 0, Tot. Refills 0, Maintenance, Product number [id number] Dx codes: M54.2 Duration: lifetime, 07/21/22 14:25:00 EST, Supply Start Date: 07/21/22 Status: Ordered traZODone 150 mg oral tablet 3 tablet, By Mouth, Daily at bedtime, # 270 tablet, 6 Refills, [facility], 163, cm, 09/26/21 13:20:00 EDT, Height Start Date: 11/14/21 Status: Ordered Trelegy Ellipta 200 mcg-62.5 mcg-25 mcg/inh inhalation powder 1 puffs, Inhalation, Daily, at the same time every day, # 9 each, 3 Refills, Maintenance, 08/31/22 9:41:00 EDT, Powder, [place], [place] - [id number], Partial fill upon patient request if the prescription is for a schedule II opioid d... Start Date: 08/31/22 Status: Ordered value series power lift chair [id number] value series power lift chair [id number], See Instructions, # 1 each, Refills 0, Tot. Refills 0, Maintenance, Diagnosis codes: G89.29, M19.90, J44.9, Z74.09, 01/30/20 9:31:00 EDT, Supply Start Date: 01/30/20 Status: Ordered varenicline 1mg tablet 1 tablet, By Mouth, 2 times a day, # 56 tablet, 5 Refills, Physician Stop 06/24/23 11:28:00 EST, 06/24/22 11:30:00 EST, [facility] [id number], 164, cm, 06/02/22 16:10:00 EST,Height, 122, kg, 05/02/22 15:20:00 EST, Dry Weight Start Date: 06/24/22 Stop Date: 06/24/23 Status: Ordered Ventolin HFA 108 mcg/inh inhalation aerosol with adapter 2 puffs, Inhalation, 4 times a day, PRN Wheezing/Shortness of Breath, 90 days supply, # 1 each, 5 Refills, Maintenance, 04/14/22 16:26:00 EST, [facility] [id number], 163, cm,04/13/22 11:52:00 EST, Height Start Date: 04/14/22 Status: Ordered Victoza 18 mg/3 mL subcutaneous solution = 1.2 mg, Subcutaneous Infusion, Daily, # 15 mL, 11 Refills, Maintenance, 06/02/22 16:53:00 EST, [facility] [id number], Partial fill upon patient request if the [...] 4, 5 Confirmed Active BHN/CCA/CP-Jo Ann Harvey [phone]/Health residential active care coordination Confirmed Active Severe [...] Associate Professional Member Role: PCP Address: Address: [address] [place] [address] [place] [address]- Name: Perri Perry RN Position: [facility] Matthews RN Position: [facility] Hospital Curtain Supervisor Member Role: Primary Care Nurse Care Team Related Persons Name: TANA MENDOZA Address: [place] [address] Name: MARIA TERESA UMAÑA Address: home [address] [place] [address] Name: ANG GAFFNEY Address: home [address] [place] [address] Name: CHILO AHMADI Address: home [address] [place] [address]
--- OUTSIDE RECORDS SUMMARY | 2023-09-15 07:43 | XMS_ITS | Continuity of Care Document ---
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 Role Phone Kwame Bolton Primary Care Physician [phone] [facility]): 04[facility]13/23 - 05/13/23 [facility] [address] [place] [address]- Allergies, Adverse Reactions, Alerts Substance Reaction Severity [...] vaccine, inactivated 5 02/26/09 Gi cecile SARS-CoV-2(COVID-19)mRNA-LNP vac([id number]) 02/25/23 Recorded SARS-CoV-2 (COVID-19) mRNA-1273 vaccine 6 [...] Comment: [02/16/2023] Given at [facility] Averecord can be obtained from [facility] 2Result Comment: [02/22/2017] [facility] [id number] 3Admin Note: flulaval vis given vis date 11/16/2011 4Admin Note: VIS GIVEN VIS DATE 12/24/2009 5Admin Note: VIS GIVEN 12/25/08 yakut 6Result Comment: new booster 7Result Comment: dose 2 8Result Comment: dose 1 9Result Comment: Received at [facility] on [facility] [place] in [place] 10Admin Note: vis given 11Admin Note: vis given 12Result Comment: [id number] exp 06/2009 13Admin Note: vis given Medications [...] EST, Compound Start Date: 07/12/19 Status: Ordered [place] Saline 0.65% nasal gel 1 sprays, Nares, Both, 4 times a day, # 22.5 Gm, 1 Refills, Maintenance, 04/12/23 8:20:00 EST, [facility] [id number], Partial fill upon patient request if the prescription isfor a schedule II opioid drug., 1 sprays Nares, Bot... Start Date: 04/12/23 Status: Ordered Azithromycin 5 Day Dose Pack 250 mg oral tablet See Instructions, as directed on package labeling, # 6 each, 0 Refills, Maintenance, 01/05/23 14:03:00 EDT, [facility] [id number], Partial fill upon patient request if the prescription is for a schedule II opioid drug., 163, c... Start Date: 01/05/23 Status: Ordered B-Complex with B-12 oral tablet See Instructions, TAKE 1 TABLET BY MOUTH ONCE DAILY WITH FOOD, # 90 tablet, 1 Refills, Maintenance,11/18/22 10:57:00 EDT, [facility], 90, TAKE 1 TABLET BY MOUTH ONCE DAILY WITH FOOD, 163, cm, 11/18/22 8:31:00 EDT, Height, 122, kg, 05/02/22 15:20... Start Date: 11/18/22 Status: Ordered Biotene Moisturizing Mouth oral spray 1 sprays, By Mouth, 6 times a day, BIOTENE NAME BRAND MAY BE REQUIRED, # 240 mL, 5 Refills, Maintenance, 11/18/22 8:47:00 EDT, [facility] [id number], Partial fill upon patient request if the prescription is for a schedule II o... Start Date: 11/18/22 Status: Ordered Cane See Instructions, # 1 each, Maintenance, DX LEFT KNEE PAIN /ACL TEAR /ARTHRITIS DX CODE M25.562 HT 163 CM WT 123 KG DURATION -LIETIME PATIENTS VERA BOYKIN, 01/06/19 8:36:49 EDT, Compound Start Date: 01/06/19 Status: Ordered Comfort EZ Pen [place] 32 gauge x 5/32 Comfort EZ Pen [place] 32 gauge x 5/32 , See Instructions, # 50 Unknown, 11 Refills, USE DAILY WITHvictoza injection, 163, cm, 03/25/21 9:16:00 EST, Height Start Date: 04/01/21 Status: Ordered Comfort EZ Pen [place] 32 gauge x 5/32 Comfort EZ Pen [place] 32 gauge x 5/32 , See Instructions, # 50 Unknown, 0 Refills, USE DAILY WITH victoza injection, 163, cm, 12/18/20 9:01:00 EDT, Height Start Date: 02/05/21 Status: Ordered Comfort EZ Pen [place] 32 gauge x 5/32 Comfort EZ Pen [place] 32 gauge x 5/32 , See Instructions, [...] Refills, Maintenance, 03/17/23 9:55:00 EDT, [facility] [id number], Partial fill upon patient request if the prescription is for a schedule II... Start Date: 03/17/23 Status: Ordered docusate sodium 100 mg oral capsule 1 capsule, By Mouth, 2 times a day, dose frquency increase to twice per day 11/18/22, # 60 each, 5 Refills, Maintenance, 11/18/22 8:49:00 EDT, [facility] [id number], docusate dosing increase to bid 11/18/22., 163, cm, 11/18/22 8:3... Start Date: 11/18/22 Status: Ordered Ear Pain MD 4% otic liquid 2 drops, Ears, Both, 3 times a day, PRN Pain , Moderate, # 12.5 mL, 0 Refills, Maintenance, 01/04/23 21:24:00 EDT, [place], [place] - [id number], Partial fill upon patient request ifthe prescription [...] 5 Refills, Maintenance, 11/18/22 10:57:00 EDT, [facility], 163, cm, 11/18/22 8:31:00 EDT, Height, 122, kg, 05/02/22 15:20:00 EST, Dry Weight Start Date: 11/18/22 Status: Ordered fluticasone 50 mcg/inh nasal spray 1 sprays, Nares, Both, Daily, # 16 Gm, 2 Refills, Maintenance, 12/29/22 17:51:00 EDT, [place], [place] - [id number], Partial fill upon patient request if the [...] 04/15/23 14:20:00 EST, Route to Pharmacy Electronically, [facility], 163, cm, 04/12/23 8:10:00 EST, [...] 02/10/23 10:21:00 EDT, Route to Pharmacy Electronically, [facility], 163, cm, 01/20/23 8:13:00 EDT, Height, 122, kg, 05/02/22 15:20:00 EST, Dry Weight Start Date: 02/10/23 Status: Ordered Mag-G 500 mg oral tablet 0.5 tablet, By Mouth, 2 times a day, # 30 tablet, 2 Refills, Maintenance, 02/15/23 18:46:00 EDT, [facility], 163, cm, 01/20/23 8:13:00 EDT, Height, 122, kg, 05/02/22 15:20:00 EST, Dry Weight Start Date: 02/15/23 Status: Ordered Nicotrol Inhaler 10 mg inhalation device See Instructions, To use with nicotine cartridges in place of cigarettes, # 3 each, 0 Refills, Maintenance, 08/31/22 9:43:00 EDT, [facility] - [place], [place] - [id number], Partial fill upon patient request if the [...] Start Date: 01/31/20 Status: Ordered Potassium Chloride (Ldo-Zuio-Cff M20) 20 mEq oral tablet, extended release [...] tablet, 6 Refills, Maintenance, 01/13/23 15:35:00 EDT, [facility], 163, cm, 12/22/22 8:54:00 EDT, [...] tablet, 5 Refills, Maintenance, 02/23/23 13:56:00 EDT, [place], [place] - [id number], please dispense in bubble pack. dose increase... Start Date: 02/23/23 Status: Ordered square orthopedic pillow with central square depression and surrounding bolster square orthopedic pillow with central square depression and surrounding bolster, See Instructions, # 1 each, Refills 0, Tot. Refills 0, Maintenance, Product number [id number] Dx codes: M54.2 Duration: lifetime, 07/21/22 14:25:00 EST, Supply Start Date: 07/21/22 Status: Ordered traZODone 150 mg oral tablet 3 tablet, By Mouth, Daily at bedtime, # 270 tablet, 6 Refills, 10/26/22 10:18:00 EDT, [place], [place] - [id number], 163, cm, 10/14/22 8:43:00 EDT, Height, 122, kg, 05/02/22 15:20:00EST, Dry Weight Start Date: 10/26/22 Status: Ordered Trelegy Ellipta 200 mcg-62.5 mcg-25 mcg/inh inhalation powder 1 puffs, Inhalation, Daily, at the same time every day, # 9 each, 3 Refills, Maintenance, 08/31/22 9:41:00 EDT, Powder, [place], [place] - [id number], Partial fill upon patient request if the prescription is for a schedule II opioid d... Start Date: 08/31/22 Status: Ordered value series power lift chair [id number] value series power lift chair [id number], See Instructions, # 1 each, Refills 0, Tot. Refills 0, Maintenance, Diagnosis codes: G89.29, M19.90, J44.9, Z74.09, 01/30/20 9:31:00 EDT, Supply Start Date: 01/30/20 Status: Ordered Ventolin HFA 108 mcg/inh inhalation aerosol with adapter 2 puffs, Inhalation, 4 times a day, PRN NEEDED FOR SHORTNESS OF BREATH OR FOR WHEEZING, # 18 Gm,5 Refills, Maintenance, 04/13/23 13:49:00 EST, [facility], 163, cm, 04/12/23 8:10:00 EST, Height, 122, [...] 4, 5 Confirmed Active BHN/CCA/CP-Jo Ann Harvey [phone]/Health senior living active care coordination Confirmed Active BHN/CCA/LCC Lisa Gutierrez [phone]/Health senior living active care coordination Confirmed Active Severe obesity [...] Care Team Personnel Name: Kwame Bolton Position: [facility] PCO Associate Professional Member Role: PCP Address: Address: [address] [place] [address] [place] [address]- Name: Perri Perry RN Position: [facility] RN Member Role: Primary Care Nurse Name: Alicia Vallecillo RN Position: [facility] RN Member Role: Primary Care Nurse Name: Maureen Smith RN Position: [facility] RN Member Role: Primary Care Nurse Name: Sultana Broussard RN Position: [facility] RN Member Role: Primary Care Nurse Name: Abigail Dior RN Position: [facility] RN Member Role: Primary Care Nurse Name: Ivette Carter RN Position: [facility] RN Member Role: Primary Care Nurse Name: Rukhsana Matthews RN Position: [facility] Hospital Jewelry Sales Representative Member Role: Primary Care Nurse Care Team Related Persons Name: TANA MENDOZA Address: [place] [address] Name: MARIA TERESA UMAÑA Address: home [address] [address] Name: ANG GAFFNEY Address: home [address] [place] [address] Name: CHILO AHMADI Address: home [address] [address]
--- OUTSIDE RECORDS SUMMARY | 2023-09-15 07:43 | XMS_ITS | Continuity of Care Document ---
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 Name Role Phone Kwame Bolton Primary Care Physician [facility]): [facility] - 10/24/21 [facility] [address] [place] [id number] Attending Physician: Not on Staff, Attending MD [...] Comment: dose 1 3Result Comment: Received at [facility] on [facility] [place] 4Admin Note: vis given 5Admin Note: vis given 6Result Comment: [02/22/2017] [facility] [id number] 7Admin Note: flulaval vis given vis date 11/16/2011 8Admin Note: VIS GIVEN VIS DATE 12/24/2009 9Admin Note: VIS GIVEN 12/25/08 slovak 10Result Comment: [01/03/2018 Uncharted] ERROR NOT GIVEN 11Result Comment: [id number] exp 06/2009 12Admin Note: vis given Medications [...] Date: 01/06/19 Status: Ordered Comfort EZ Pen [place] 32 gauge x 5/32 Comfort EZ Pen [place] 32 gauge x 5/32 , See Instructions, # 50 Unknown, 11 Refills, USE DAILY WITHvictoza injection, 163, cm, 03/25/21 9:16:00 EST, Height Start Date: 04/01/21 Status: Ordered Comfort EZ Pen [place] 32 gauge x 5/32 Comfort EZ Pen [place] 32 gauge x 5/32 , See Instructions, # 50 Unknown, 0 Refills, USE DAILY WITH victoza injection, 163, cm, 12/18/20 9:01:00 EDT, Height Start Date: 02/05/21 Status: Ordered D3 1000 intl units (25 mcg) oral tablet 1 tablet, By Mouth, Daily, # 30 tablet, 5 Refills, [facility], 163, cm, 07/09/21 8:06:00 EST, Height Start Date: 07/25/21 Status: Ordered Daliresp 500 mcg oral tablet 1 tablet, By Mouth, Daily, # 30 tablet, 6 Refills, [facility], 163, cm, 04/29/21 8:04:00 EST, Height Start Date: 05/02/21 Status: Ordered docusate sodium 100 mg oral capsule 1 capsule, By Mouth, Daily, # 60 each, 5 Refills, Maintenance, 04/04/21 11:02:00 EST, [facility] - [place], [place] - [id number], 163, cm, 03/25/21 9:16:00 EST, Height Start [...] tablet, Refills 6, Route to Pharmacy Electronically, [facility], 163, cm, 04/29/21 8:04:00 EST, Height Start Date: 05/02/21 Status: Ordered guaiFENesin 100 mg/5 mL oral liquid 20 mL = 400 mg, By Mouth, 2 times a day, for congestion, cough. with fluids, # 240 mL, 0 Refills, Maintenance, 04/14/21 8:42:00 EST, [facility] [id number], Partial fill upon patient request if the prescription is for a schedu... Start Date: 04/14/21 Status: Ordered guaiFENesin 100 mg/5 mL oral liquid 10 mL = 200 mg, By Mouth, Every 6 hours, PRN Cough and Congestion, with fluids, # 240 mL, 0 Refills, Maintenance, 09/05/21 13:15:00 EDT, [facility] [id number], Partial fill upon patient request if the [...] NEEDEDFOR SEVERE PAIN, Route to Pharmacy Electronically, [facility], 163, cm, 03/25/21 9:16:00 EST, Height [...] 02/26/21 9:41:00 EDT, Route to Pharmacy Electronically, [facility] [id number], Partialfill upon patient request if the prescription is fo... Start Date: 02/26/21 Status: Ordered loratadine 10 mg oral tablet 10 mg, 1, tablet, By Mouth, Daily, # 30 tablet, Refills 3, Tot. Refills 3, Maintenance, 09/26/21 13:31:00 EDT, Route to Pharmacy Electronically, [place], [place] - [id number], Partial fill upon patient request if the [...] Start Date: 01/31/20 Status: Ordered Potassium Chloride (Zqo-Kxdf-Ylh M20) 20 mEq oral tablet, extended release [...] 0, Tot. Refills 0, Maintenance, Product number [id number] Dx codes: M54.2 Duration: lifetime, 02/27/21 19:03:00 EDT, Supply Start Date: 02/27/21 Status: Ordered traZODone 150 mg oral tablet 3 tablet, By Mouth, Daily at bedtime, # 270 tablet, 1 Refills, Maintenance, 05/28/21 10:31:00 EST, [place], [place] - [id number], 163, cm, 04/29/21 8:04:00 EST, Height Start Date: 05/28/21 Status: Ordered triamcinolone 0.025% topical cream 1 applicator, Topically, 3 times a day, PRN eczema, # 80 Gm, 2 Refills, Maintenance, 08/16/19 15:48:00 EDT, [place], [place] -, 1 applicator Topically 3 times a day,PRN:eczema, 163, cm, 07/11/19 13:24:00 EST, Height, 114, kg, 04/19/18... Start Date: 08/16/19 Status: Ordered value series power lift chair [id number] value series power lift chair [id number], See Instructions, # 1 each, Refills 0, Tot. Refills 0, Maintenance, Diagnosis codes: G89.29, M19.90, J44.9, Z74.09, 01/30/20 9:31:00 EDT, Supply Start Date: 01/30/20 Status: Ordered varenicline 1mg tablet 1 tablet, By Mouth, 2 times a day, # 56 tablet, 5 Refills, [facility], 163, cm, 07/09/21 8:06:00 EST, Height Start Date: 07/25/21 Status: Ordered Ventolin HFA 108 mcg/inh inhalation aerosol with adapter 2 puffs, Inhalation, 4 times a day, PRN Wheezing/Shortness of Breath, 90 days supply, # 1 each, 5 Refills, Maintenance, 10/07/20 6:45:00 EDT, [place], [place] - [id number], 163, cm, 09/24/20 13:25:00 EDT, Height Start Date: 10/07/20 Status: Ordered Victoza 18 mg/3 mL subcutaneous solution = 1.2 mg, Subcutaneous Infusion, Daily, dose increase to 1.2mg qd 04/29/21., # 15 mL, 5 Refills, Maintenance, 04/29/21 8:26:00 EST, [place], [place] - [id number], Partial fill upon patient request if the prescription is for a schedule... Start Date: 04/29/21 Status: Ordered Vitamin B Complex oral tablet, extended release 1 tablet, By Mouth, Daily, with food., # 90 tablet, 3 Refills, Maintenance, 12/18/20 10:26:00 EDT, [place], [place] - [id number], Partial fill upon patient request if the [...] apnea(Confirmed) 4, 5 Active BHN/CCA/CP-Jo Ann Harvey [phone]/Health shelter active care coordination(Confirmed) Active Severe obesity(Confirmed) Active [...]
--- OUTSIDE RECORDS SUMMARY | 2023-09-15 07:43 | XMS_ITS | Continuity of Care Document ---
Author Organization [facility] Address [address] [place] [id number]- Care Team Providers Care Psychology Assistant Name Role Phone Kwame Bolton Primary Care Physician Encounter [facility] Date(s): 11/20/21 - 12/20/[address] [address] Attending Physician: Darryl Goodwin Admitting Physician: AdmtrDarryl Referring Physician: Admtr, Ar8 Allergies, Adverse Reactions, Alerts Substance Reaction Severity Status Lobster throat tightening; vomiting Active Other Environmental Allergy Seasonal Allergies Active FIRST Metronidazole 1 vomiting, diarrhea, dyspnea Pers istent Moderate Active Shrimp throat tightening; vomiting Active 1VOMITING [...] Comment: dose 1 3Result Comment: Received at [facility] on [facility] in [place] 4Admin Note: vis given 5Admin Note: vis given 6Result Comment: [02/22/2017] [facility] [id number] 7Admin Note: flulaval vis given vis date 11/16/2011 8Admin Note: VIS GIVEN VIS DATE 12/24/2009 9Admin Note: VIS GIVEN 12/25/08 [email or web address] 10Result Comment: [01/03/2018 Uncharted] ERROR NOT GIVEN 11Result Comment: [id number] exp 06/2009 12Admin Note: vis given Medications [...] Date: 01/06/19 Status: Ordered Comfort EZ Pen [place] 32 gauge x 5/32 Comfort EZ Pen [place] 32 gauge x 5/32 , See Instructions, # 50 Unknown, 11 Refills, USE DAILY WITHvictoza injection, 163, cm, 03/25/21 9:16:00 EST, Height Start Date: 04/01/21 Status: Ordered Comfort EZ Pen [place] 32 gauge x 5/32 Comfort EZ Pen [place] 32 gauge x 5/32 , See Instructions, # 50 Unknown, 0 Refills, USE DAILY WITH victoza injection, 163, cm, 12/18/20 9:01:00 EDT, Height Start Date: 02/05/21 Status: Ordered D3 1000 intl units (25 mcg) oral tablet 1 tablet, By Mouth, Daily, # 30 tablet, 5 Refills, [facility], 163, cm, 07/09/21 8:06:00 EST, Height Start Date: 07/25/21 Status: Ordered Daliresp 500 mcg oral tablet 1 tablet, By Mouth, Daily, # 30 tablet, 6 Refills, [facility], 163, cm, 09/26/21 13:20:00 EDT,Height Start Date: 11/14/21 Status: Ordered docusate sodium 100 mg oral capsule 1 capsule, By Mouth, Daily, # 60 each, 5 Refills, Maintenance, 04/04/21 11:02:00 EST, [facility] - [place], [place] - [id number], 163, cm, 11/09/21 9:16:00 EST, Height Start Date: 04/04/21 Status: [...] tablet, Refills 4, Route to Pharmacy Electronically, [facility], 163, cm, 09/26/21 13:20:00 EDT, Height Start Date: 11/14/21 Status: Ordered guaiFENesin 100 mg/5 mL oral liquid 20 mL = 400 mg, By Mouth, 2 times a day, for congestion, cough. with fluids, # 240 mL, 0 Refills, Maintenance, 04/14/21 8:42:00 EST, [place], [place] - [id number], Partial fill upon patient request if the [...] NEEDEDFOR SEVERE PAIN, Route to Pharmacy Electronically, [facility], 163, cm, 03/25/21 9:16:00 [...] 09/26/21 13:31:00 EDT, Route to Pharmacy Electronically, [place], [place] - [id number], Partial fill upon patient request if the [...] Start Date: 01/31/20 Status: Ordered Potassium Chloride (Pgb-Wdsz-Egx M20) 20 mEq oral tablet, extended release 1 tablet, By Mouth, Daily, # 30 tablet, 6 Refills, [facility], 163, cm, 09/26/21 13:20:00 EDT,Height [...] Mouth, Daily, # 30 tablet, 3 Refills, [facility], 163, cm, 09/26/21 13:20:00 EDT,Height Start Date: 12/15/21 Status: Ordered square orthopedic pillow with central square depression and surrounding bolster square orthopedic pillow with central square depression and surrounding bolster, See Instructions, # 1 each, Refills 0, Tot. Refills 0, Maintenance, Product number [id number] Dx codes: M54.2 Duration: lifetime, 02/27/21 19:03:00 EDT, Supply Start Date: 02/27/21 Status: Ordered traZODone 150 mg oral tablet 3 tablet, By Mouth, Daily at bedtime, # 270 tablet, 6 Refills, [facility], 163, cm, 09/26/21 13:20:00 EDT, Height Start Date: 11/14/21 Status: Ordered value series power lift chair [id number] value series power lift chair [id number], See Instructions, # 1 each, Refills 0, Tot. Refills 0, Maintenance, Diagnosis codes: G89.29, M19.90, J44.9, Z74.09, 01/30/20 9:31:00 EDT, Supply Start Date: 01/30/20 Status: Ordered varenicline 1mg tablet 1 tablet, By Mouth, 2 times a day, # 56 tablet, 5 Refills, [facility], 163, cm, 07/09/21 8:06:00 EST, Height Start Date: 07/25/21 Status: Ordered Ventolin HFA 108 mcg/inh inhalation aerosol with adapter 2 puffs, Inhalation, 4 times a day, PRN Wheezing/Shortness of Breath, 90 days supply, # 1 each, 5 Refills, Maintenance, 10/07/20 6:45:00 EDT, [place], [place] - [id number], 163, cm, 09/24/20 13:25:00 EDT, Height Start Date: 10/07/20 Status: Ordered Victoza 18 mg/3 mL subcutaneous solution = 1.2 mg, Subcutaneous Infusion, Daily, dose increase to 1.2mg qd 04/29/21., # 15 mL, 5 Refills, Maintenance, 04/29/21 8:26:[address] [facility], [facility] - [place], [place] - [id number], Partial fill upon patient request if the [...] apnea(Confirmed) 4, 5 Active BHN/CCA/CP-Jo Ann Harvey [phone]/Health shelter active care coordination(Confirmed) Active Severe obesity(Confirmed) [...]
--- OUTSIDE RECORDS SUMMARY | 2023-09-15 07:43 | XMS_ITS | Continuity of Care Document ---
Author Organization [facility] Address [address] [place] [id number]- Care Team Providers Care Ppa Teacher Name Role Phone Kwame Bolton Primary Care Physician [phone] Encounter [facility] Date(s): 07/03/20 - 08/02/20 [facility] [address] [place] [id number]- Allergies, Adverse Reactions, Alerts Substance Reaction Severity [...] Given influ virus vac, H1N1, inactive(oldterm) 9 1/1/10 Given Tet/Diphth/Acel, Pertussis (oldterm) 10 05/30/08 G iven Pneumococcal Poly (PPV23) (oldterm) 08/08/06 Given Pneumococcal Vaccine (oldterm) 08/08/06 Given 1Result Comment: Received at [facility] on [facility] [address] in [place] 2Admin Note: vis given 3Admin Note: vis given 4Result Comment: [02/22/2017] [facility] [id number] 5Admin Note: flulaval vis given vis date 11/16/2011 6Admin Note: VIS GIVEN VIS DATE 12/24/2009 7Admin Note: VIS GIVEN 12/25/08 [email or web address] 8Result Comment: [01/03/2018 Uncharted] ERROR NOT GIVEN 9Result Comment: [id number] exp 06/2009 10Admin Note: vis given Medications [...] capsule, 0 Refills, Maintenance, 03/05/20 14:41:00 EDT, [facility]/pharmacy #[id number], 1 capsule By Mouth Daily,x14 days, 163, cm, 03/05/20 13:58:00 EDT, Height, 114, kg, 04/19/18 23:58:00 EST, Dry Weight Start Date: 03/05/20 Stop Date: 03/19/20 Status: Ordered Azithromycin 5 Day Dose Pack 250 mg oral tablet See Instructions, as directed on package labeling, # 6 each, 0 Refills, Maintenance, 07/31/20 14:22:00 EDT, [facility] [id number], Partial fill upon patient request if the prescription is for a schedule II opioid drug., 163, c... Start Date: 07/31/20 Status: Ordered Biotene Moisturizing Mouth oral spray 1 sprays, By Mouth, 6 times a day, please dispense 2 bottles per month., # 2 each, 5 Refills, Maintenance, 06/11/20 11:38:00 EST, [facility] [id number], 1 sprays By Mouth 6 times a day,Instr:please dispense 2 bottles per month... Start Date: 06/11/20 Status: Ordered Breo Ellipta 200 mcg-25 mcg/inh inhalation powder 1 puffs, Inhalation, Daily, Rinse mouth well after each use, # 1 each, 5 Refills, Maintenance, 08/16/19 15:52:00 EDT, Powder, [place], [place] -, 1 puffs Inhalation Daily,Instr:[place] well after each use, 163, cm, 07/11/19 13:24:... Start Date: 08/16/19 Status: Ordered Breo Ellipta 200 mcg-25 mcg/inh inhalation powder See Instructions, INHALE 1 PUFF BY MOUTH INTO THE lungs DAILY. rinse mouth and throat after use, # 60 Unknown, 11 Refills, 03/27/20 10:56:00 EST, [facility] [id number], 30, INHALE 1 PUFF BY MOUTH INTO [...] tablet, 3 Refills, Maintenance, 03/27/20 10:55:00 EST, [facility] [id number], 163, cm, 03/05/20 13:58:00 EDT, Height, 114, kg, 04/19/18 23:58:00 EST, Dry Weight Start Date: 03/27/20 Status: Ordered clonazePAM 0.5 mg oral tablet 2 tablet = 1 mg, By Mouth, 2 times a day, # 120 tablet, 2 Refills, Maintenance, 07/09/20 16:30:00 EST, [place], [place] - [id number], 163, cm, 07/08/20 9:27:00 EST, Height Start Date: 07/09/20 Stop Date: 10/07/20 Status: Ordered Daliresp 500 mcg oral tablet See Instructions, 1 tablet By Mouth Daily, # 30 each, 6 Refills, Maintenance, 08/16/19 15:51:00 EDT, [place], [place] -, 163, cm, 07/11/19 13:24:00 EST, Height, 114, kg, 04/19/18 23:58:00 EST, Dry Weight Start Date: 08/16/19 Status: Ordered Daliresp 500 mcg oral tablet See Instructions, TAKE ONE TABLET BY MOUTH DAILY, # 30 tablet, 6 Refills, Maintenance, [facility], 163, cm, 03/05/20 13:58:00 EDT, Height, [...] 12/15/19 10:10:00 EDT, Route to Pharmacy Electronically, [facility] [id number], 163, cm, 07/11/19 13:24:00 EST, Height, 114, kg... Start Date: 12/15/19 Status: Ordered docusate sodium 100 mg oral capsule See Instructions, TAKE ONE CAPSULE BY MOUTH 2 (two) times a day, # 60 capsule, 5 Refills, 03/27/20 10:56:00 EST, [place], [place] - [id number], 163, cm, 03/05/20 13:58:00 EDT, Height, 114, [...] Gm, 5 Refills, Maintenance, 08/16/19 15:53:00 EDT, [place], [place] -, 1 sprays Nares, Both 2 times a day, 163, cm, 07/11/19 13:24:00 EST, Height, 114, kg, 04/19/18 23:58:00 EST, Dry Weight Start Date: 08/16/19 Status: Ordered furosemide 40 mg oral tablet 40 mg, 1, tablet, By Mouth, 2 times a day, # 60 tablet, Refills 3, Tot. Refills 3, Maintenance, 03/27/20 10:58:00 EST, Route to Pharmacy Electronically, [place], [place] - [id number], 163, cm, 03/05/20 13:58:00 EDT, Height, 114, kg, 1... Start Date: 03/27/20 Stop Date: 07/25/20 Status: Ordered guaiFENesin 100 mg/5 mL oral liquid 20 mL = 400 mg, By Mouth, Every 6 hours, PRN Cough and Congestion, with fluids, # 240 mL, 0 Refills, Maintenance, 09/28/19 14:14:00 EDT, [place], [place] -, 163, cm, 07/11/19 13:24:00 EST, [...] 01/18/20 15:46:00 EDT, Route to Pharmacy Electronically, [facility]/pharmacy #[id number], 163, cm, 07/11/19 13:24:00 EST, [...] Refills, Maintenance, 07/08/20 10:14:00 EST, CR Capsule, [place], [place] - [id number], Partial fill upon patient request if the [...] 12/26/19 16:58:00 EDT, Route to Pharmacy Electronically, [facility] [id number], 163, cm, 07/11/19 13:24:00 EST, Height, 114, kg,... Start Date: 12/26/19 Status: Ordered OXcarbazepine 150 mg oral tablet See Instructions, TAKE ONE TABLET BY MOUTH 2 (two) times a day, # 60 tablet, Refills 3, Tot. Refills 3, 03/27/20 10:55:00 EST, Instructions Replace Required Details, Route to Pharmacy Electronically,[facility] [id number], 163... Start Date: 03/27/20 Status: Ordered portable oxygen concentrator portable oxygen concentrator, See Instructions, # 1 each, Refills 0, Tot. Refills 0, Maintenance, Dx severe COPD. Codes J44.9, R09.02, 01/31/20 16:26:00 EDT, Compound Start Date: 01/31/20 Status: Ordered potassium chloride 20 mEq oral tablet, extended release 1 tablet, By Mouth, Daily, # 30 tablet, 5 Refills, Maintenance, 05/13/20 8:59:00 EST, [facility], 163, cm, 03/05/20 13:58:00 EDT, Height Start Date: 05/13/20 Status: Ordered predniSONE 20 mg oral tablet 2 tablet = 40 mg, By Mouth, Daily, for 5 days, with food or milk, # 10 tablet, 0 Refills, Acute 08/05/20 14:23:00 EDT, 07/31/20 14:23:00 EDT, [facility] [id number], Partial fill upon patient request if the prescription is for... Start Date: 07/31/20 Stop Date: 08/05/20 Status: Ordered predniSONE 20 mg oral tablet 2 tablet = 40 mg, By Mouth, Daily in AM, with food or milk home delivery please, # 6 tablet, 0 Refills, Maintenance, 05/30/20 20:00:00 EST, [facility] [id number], 163, cm, 03/05/20 13:58:00 EDT, Height Start [...] Refills, Soft Stop, 01/17/20 11:40:00 EDT, Powder, [facility]/pharmacy #[id number], 0.5 mL Intramuscular Once,Instr:repeat dose [...] 0 Refills, Maintenance, 03/19/20 17:18:00 EST, Tablet, [place], [place] -... Start Date: 03/19/20 Status: Ordered tinidazole 500 mg oral tablet 4 tablet = 2,000 mg, By Mouth, Daily, with food, # 8 tablet, 0 Refills, Soft Stop, 03/18/20 14:36:00 EST, [place], [place] - [id number], 163, cm, 03/05/20 13:58:00 EDT, Height, 114, kg, 04/19/18 23:58:00 EST, Dry Weight Start Date: 03/18/20 Stop Date: 03/20/20 Status: Ordered traZODone 150 mg oral tablet 3 tablet = 450 mg, By Mouth, Daily at bedtime, Please d/c order for 300mg qhs. Correct dose 450mg qhs., # 90 tablet, 5 Refills, Maintenance, 03/27/20 10:57:00 EST, [place], [place] -[id number], 163, cm, 03/05/20 13:58:00 EDT, Height,... Start Date: 03/27/20 Status: Ordered triamcinolone 0.025% topical cream 1 applicator, Topically, 3 times a day, PRN eczema, # 80 Gm, 2 Refills, Maintenance, 08/16/19 15:48:00 EDT, [place], [place] -, 1 applicator Topically 3 times a day,PRN:eczema, 163, cm, 07/11/19 13:24:00 EST, Height, 114, kg, 04/19/18... Start Date: 08/16/19 Status: Ordered value series power lift chair [id number] value series power lift chair [id number], See Instructions, # 1 each, Refills 0, Tot. Refills 0, Maintenance, Diagnosis codes: G89.29, M19.90, J44.9, Z74.09, 01/30/20 9:31:00 EDT, Supply Start Date: 01/30/20 Status: Ordered Ventolin HFA 108 mcg/inh inhalation aerosol with adapter 2 puffs, Inhalation, 4 times a day, PRN Wheezing/Shortness of Breath, 90 days supply, # 1 each, 5 Refills, Maintenance, 04/15/20 17:48:00 EST, [place], [place] - [id number], 163, cm,03/05/20 13:58:00 EDT, Height, 114, kg, 04/19/18 23... Start Date: 04/15/20 Status: Ordered verapamil 120 mg oral tablet 1 tablet, By Mouth, 3 times a day, home delivery please., # 90 tablet, 5 Refills, Maintenance, 05/21/20 11:21:00 EST, [place], [place] - [id number], 163, cm, 03/05/20 13:58:00 EDT, Height Start Date: 05/21/20 Status: Ordered Vitamin D3 1000 intl units oral tablet 1 tablet = 1,000 International_Units, By Mouth, Daily, # 90 tablet, 3 Refills, Maintenance, 08/16/19 15:51:00 EDT, [place], [place] -, 163, cm, 07/11/19 13:24:00 EST, [...] apnea(Confirmed) 4, 5 Active BHN/CCA/CP-Jo Ann Harvey [phone]/Health jail active care coordination(Confirmed) Active 1Health Care Agent: [...]
--- OUTSIDE RECORDS SUMMARY | 2023-09-15 07:44 | XMS_ITS | Continuity of Care Document ---
Author Organization [facility] Address [address] [place] [address]- Care Team Providers Care Gis Analyst Name Role Phone Kwame Bolton Primary Care Physician [phone] Encounter [facility] Date(s): 04/29/21 - 05/29/21 [facility] [address], [place] [id number] Allergies, Adverse Reactions, Alerts Substance Reaction [...] Comment: dose 1 3Result Comment: Received at [facility] on [facility] in [place] 4Admin Note: vis given 5Admin Note: vis given 6Result Comment: [02/22/2017] [facility] [id number] 7Admin Note: flulaval vis given vis date 11/16/2011 8Admin Note: VIS GIVEN VIS DATE 12/24/2009 9Admin Note: VIS GIVEN 12/25/08 tu[place] 10Result Comment: [01/03/2018 Uncharted] ERROR NOT GIVEN 11Result Comment: [id number] exp 06/2009 12Admin Note: vis given Medications [...] tablet, 2 Refills, Maintenance, 04/29/21 8:24:00 EST, [place], [place] - [id number], 163, cm, 04/29/21 8:04:00 EST, Height Start Date: 04/29/21 Status: Ordered Comfort EZ Pen [place] 32 gauge x 5/32 Comfort EZ Pen [place] 32 gauge x 5/32 , See Instructions, # 50 Unknown, 11 Refills, USE DAILY WITHvictoza injection, 163, cm, 03/25/21 9:16:00 EST, Height Start Date: 04/01/21 Status: Ordered Comfort EZ Pen [place] 32 gauge x 5/32 Comfort EZ Pen [place] 32 gauge x 5/32 , See Instructions, # 50 Unknown, 0 Refills, USE DAILY WITH victoza injection, 163, cm, 12/18/20 9:01:00 EDT, Height Start Date: 02/05/21 Status: Ordered Daliresp 500 mcg oral tablet 1 tablet, By Mouth, Daily, # 30 tablet, 6 Refills, [facility], 163, cm, 04/29/21 8:04:00 EST, Height Start Date: 05/02/21 Status: Ordered docusate sodium 100 mg oral capsule 1 capsule, By Mouth, Daily, # 60 each, 5 Refills, Maintenance, 04/04/21 11:02:00 EST, [place], [place] - [id number], 163, cm, 03/25/21 9:16:00 EST, Height Start [...] tablet, Refills 6, Route to Pharmacy Electronically, [facility], 163, cm, 04/29/21 8:04:00 EST, Height Start Date: 05/02/21 Status: Ordered guaiFENesin 100 mg/5 mL oral liquid 20 mL = 400 mg, By Mouth, 2 times a day, for congestion, cough. with fluids, # 240 mL, 0 Refills, Maintenance, 04/14/21 8:42:00 EST, [place], [place] - [id number], Partial fill upon patient request if the [...] NEEDEDFOR SEVERE PAIN, Route to Pharmacy Electronically, [facility], 163, cm, 03/25/21 9:16:00 [...] 02/26/21 9:41:00 EDT, Route to Pharmacy Electronically, [place], [place] - [id number], Partialfill upon patient request if the prescription [...] Start Date: 01/31/20 Status: Ordered Potassium Chloride (Vcj-Ssfo-Aaz M20) 20 mEq oral tablet, extended release 1 tablet, By Mouth, Daily, # 30 tablet, 6 Refills, [facility], 163, cm, 04/29/21 8:04:00 [...] Mouth, Daily, # 30 tablet, 2 Refills, [facility], 163, cm, 04/29/21 8:04:00 EST, Height Start Date: 05/28/21 Status: Ordered square orthopedic pillow with central square depression and surrounding bolster square orthopedic pillow with central square depression and surrounding bolster, See Instructions, # 1 each, Refills 0, Tot. Refills 0, Maintenance, Product number [id number] Dx codes: M54.2 Duration: lifetime, 02/27/21 19:03:00 EDT, Supply Start Date: 02/27/21 Status: Ordered traZODone 150 mg oral tablet 3 tablet, By Mouth, Daily at bedtime, # 270 tablet, 1 Refills, Maintenance, 05/28/21 10:31:00 EST, [place], [place] - [id number], 163, cm, 04/29/21 8:04:00 EST, Height Start Date: 05/28/21 Status: Ordered triamcinolone 0.025% topical cream 1 applicator, Topically, 3 times a day, PRN eczema, # 80 Gm, 2 Refills, Maintenance, 08/16/19 15:48:00 EDT, [place], [place] -, 1 applicator Topically 3 times a day,PRN:eczema, 163, cm, 07/11/19 13:24:00 EST, Height, 114, kg, 04/19/18... Start Date: 08/16/19 Status: Ordered value series power lift chair [id number] value series power lift chair [id number], See Instructions, # 1 each, Refills 0, Tot. Refills 0, Maintenance, Diagnosis codes: G89.29, M19.90, J44.9, Z74.09, 01/30/20 9:31:00 EDT, Supply Start Date: 01/30/20 Status: Ordered Ventolin HFA 108 mcg/inh inhalation aerosol with adapter 2 puffs, Inhalation, 4 times a day, PRN Wheezing/Shortness of Breath, 90 days supply, # 1 each, 5 Refills, Maintenance, 10/07/20 6:45:00 EDT, [facility] [id number], 163, cm, 09/24/20 13:25:00 EDT, Height Start Date: 10/07/20 Status: Ordered Victoza 18 mg/3 mL subcutaneous solution = 1.2 mg, Subcutaneous Infusion, Daily, dose increase to 1.2mg qd 04/29/21., # 15 mL, 5 Refills, Maintenance, 04/29/21 8:26:00 EST, [facility] [id number], Partial fill upon patient request if the prescription is for a schedule... Start Date: 04/29/21 Status: Ordered Vitamin B Complex oral tablet, extended release 1 tablet, By Mouth, Daily, with food., # 90 tablet, 3 Refills, Maintenance, 12/18/20 10:26:00 EDT, [facility] [id number], Partial fill upon patient request if the prescription is for a schedule II opioid drug., 1 tablet By Rosana... Start Date: 12/18/20 Stop Date: 12/13/21 Status: Ordered Vitamin D3 1000 intl units oral tablet 1 tablet = 1,000 International_Units, By Mouth, Daily, # 30 tablet, 5 Refills, Maintenance, 01/31/21 13:11:00 EDT, [facility] [id number], 163, cm, 12/18/20 9:01:00 EDT, Height Start [...] apnea(Confirmed) 4, 5 Active BHN/CCA/CP-Jo Ann Harvey [phone]/Health residential active care coordination(Confirmed) Active Severe obesity(Confirmed) [...]
--- OUTSIDE RECORDS SUMMARY | 2023-09-15 07:44 | XMS_ITS | Continuity of Care Document ---
Author Organization [facility] Address [address] [place] [address]- Care Team Providers Care Bee Producer Name Role Phone Kwame Bolton Primary Care Physician [phone] [facility]counter [facility] Date[facility]): 12/19/20 - 02/14/21 [facility] [address] [place] [phone]- Attending Physician: Not on Staff, Attending MD [...] Received at [facility] on [facility]. in [place] 4Admin Note: vis given 5Admin Note: vis given 6Result Comment: [02/22/2017] [facility] [id number] 7Admin Note: flulaval vis given vis date 11/16/2011 8Admin Note: VIS GIVEN VIS DATE 12/24/2009 9Admin Note: VIS GIVEN 12/25/08 urdu 10Result Comment: [01/03/2018 Uncharted] ERROR NOT GIVEN 11Result Comment: [id number] exp 06/2009 12Admin Note: vis given Medications [...] EST, Compound Start Date: 07/12/19 Status: Ordered Austin Saline 0.65% nasal solution See Instructions, use twice a day to rinse the nasal passages., # 120 mL, 1 Refills, Maintenance, 10/16/20 11:31:00 EDT, [facility] - [place], [place] - [id number], Partial fill upon patient request if the prescription is for a schedule II opioid... Start Date: 10/16/20 Status: Ordered Biotene Moisturizing Mouth oral spray 1 sprays, By Mouth, 6 times a day, please dispense 2 bottles per month., # 2 each, 5 Refills, Maintenance, 06/11/20 11:38:00 EST, [facility] [id number], 1 sprays By Mouth 6 times a day,Instr:please dispense 2 bottles per month... Start Date: 06/11/20 Status: Ordered Breo Ellipta 200 mcg-25 mcg/inh inhalation powder See Instructions, INHALE 1 PUFF BY MOUTH INTO THE lungs DAILY. rinse mouth and throat after use, # 60 Unknown, 11 Refills, 03/27/20 10:56:00 EST, [facility], [facility] [id number], 30, INHALE 1 PUFF BY MOUTH INTO [...] tablet, 2 Refills, Maintenance, 12/18/20 10:24:00 EDT, [facility] [id number], 163, cm, 12/18/20 9:01:00 EDT, Height Start Date: 12/18/20 Status: Ordered clonazePAM 0.5 mg oral tablet 2 tablet = 1 mg, By Mouth, 2 times a day, # 120 tablet, 2 Refills, Maintenance, 01/09/21 15:14:00 EDT, [facility] [id number], 163, cm, 12/18/20 9:01:00 EDT, Height Start Date: 01/09/21 Stop Date: 04/09/21 Status: Ordered Comfort EZ Pen [place] 32 gauge x 5/32 Comfort EZ Pen [place] 32 gauge x 5/32 , See Instructions, # 50 Unknown, 0 Refills, USE DAILY WITH victoza injection, 163, cm, 12/18/20 9:01:00 EDT, Height Start Date: 02/05/21 Status: Ordered Daliresp 500 mcg oral tablet 1 tablet, By Mouth, Daily, # 30 tablet, 6 Refills, Maintenance, 10/07/20 18:44:00 EDT, [facility], 163, cm, 09/24/20 13:25:00 EDT, Height [...] each, 5 Refills, Maintenance, 11/04/20 10:05:00 EDT, [facility] [id number], 163, cm, 10/16/20 10:59:00 EDT, Height Start [...] Gm, 2 Refills, Maintenance, 09/24/20 14:53:00 EDT, [facility] [id number], 1 sprays Nares, Both 2 times a day, 163, cm, 09/24/20 13:25:00 EDT, Height Start Date: 09/24/20 Status: Ordered furosemide 40 mg oral tablet 40 mg, 1, tablet, By Mouth, 2 times a day, # 60 tablet, Refills 2, Tot. Refills 2, Maintenance, 01/31/21 13:11:00 EDT, Route to Pharmacy Electronically, [facility] [id number], 163, cm, 12/18/20 9:01:00 EDT, Height Start [...] FOR SEVERE PAIN, Route to Pharmacy Electronically, [facility], 163, cm, 12/18/20 9:01:00 EDT, [...] 09/24/20 14:52:00 EDT, Route to Pharmacy Electronically, [place], [place] - [id number], Partial fill upon patient request if the [...] Refills, Maintenance, 11/14/20 12:14:00 EDT, [facility], [place], [place] - [id number], Partial fill upon patient request if the [...] 11/04/20 12:42:00 EDT, Route to Pharmacy Electronically, [facility], 163, cm, 10/16/20 10:59:00 EDT, Height Start Date: 11/04/20 Status: Ordered portable oxygen concentrator portable oxygen concentrator, See Instructions, # 1 each, Refills 0, Tot. Refills 0, Maintenance, Dx severe COPD. Codes J44.9, R09.02, 01/31/20 16:26:00 EDT, Compound Start Date: 01/31/20 Status: Ordered Potassium Chloride (Ril-Ywpn-Iid M20) 20 mEq oral tablet, extended release 1 tablet, By Mouth, Daily, # 30 tablet, 5 Refills, Maintenance, 11/04/20 12:42:00 EDT, [facility], 163, cm, 10/16/20 10:59:00 EDT, [...] each, 0 Refills, Maintenance, 08/29/20 19:11:00 EDT, [facility] [id number], Partial fill upon patient request if the prescription... Start Date: 08/29/20 Status: Ordered sertraline 50 mg oral tablet 1 tablet = 50 mg, By Mouth, Daily, please d/c 25mg tablet., # 30 tablet, 5 Refills, Maintenance, 09/24/20 14:52:00 EDT, [place], [place] - [id number], Partial fill upon patient request if the prescription is for a schedule II opioid d... Start Date: 09/24/20 Status: Ordered Shingrix intramuscular injection = 0.5 mL, Intramuscular, Once, repeat dose in 2 to 6 months, # 2 each, 0 Refills, Soft Stop, 01/17/20 11:40:00 EDT, Powder, [facility]/pharmacy #[id number], 0.5 mL Intramuscular Once,Instr:repeat dose in 2 to 6 months, 163, cm, 07/11/19 13:24:00 EST, Height, 114,... Start Date: 01/17/20 Status: Ordered traZODone 150 mg oral tablet 3 tablet, By Mouth, Daily at bedtime, # 90 tablet, 0 Refills, [facility], 163, cm, 12/18/20 9:01:00 EDT, Height Start Date: 02/05/21 Status: Ordered triamcinolone 0.025% topical cream 1 applicator, Topically, 3 times a day, PRN eczema, # 80 Gm, 2 Refills, Maintenance, 08/16/19 15:48:00 EDT, [place], [place] -, 1 applicator Topically 3 times a day,PRN:eczema, 163, cm, 07/11/19 13:24:00 EST, Height, 114, kg, 04/19/18... Start Date: 08/16/19 Status: Ordered value series power lift chair [id number] value series power lift chair [id number], See Instructions, # 1 each, Refills 0, Tot. Refills 0, Maintenance, Diagnosis codes: G89.29, M19.90, J44.9, Z74.09, 01/30/20 9:31:00 EDT, Supply Start Date: 01/30/20 Status: Ordered Ventolin HFA 108 mcg/inh inhalation aerosol with adapter 2 puffs, Inhalation, 4 times a day, PRN Wheezing/Shortness of Breath, 90 days supply, # 1 each, 5 Refills, Maintenance, 10/07/20 6:45:00 EDT, [place], [place] - [id number], 163, cm, 09/24/20 13:25:00 EDT, Height Start Date: 10/07/20 Status: Ordered Victoza 18 mg/3 mL subcutaneous solution = 0.6 mg, Subcutaneous Infusion, Daily, # 6 mL, 2 Refills, Maintenance, 12/18/20 10:55:00 EDT, [place], [place] - [id number], Partial fill upon patient request if the prescription isfor a schedule II opioid drug., 163, cm, 12/18/20 9... Start Date: 12/18/20 Status: Ordered Vitamin B Complex oral tablet, extended release 1 tablet, By Mouth, Daily, with food., # 90 tablet, 3 Refills, Maintenance, 12/18/20 10:26:00 EDT, [place], [place] - [id number], Partial fill upon patient request if the prescription is for a schedule II opioid drug., 1 tablet By Rosana... Start Date: 12/18/20 Stop Date: 12/13/21 Status: Ordered Vitamin D3 1000 intl units oral tablet 1 tablet = 1,000 International_Units, By Mouth, Daily, # 30 tablet, 5 Refills, Maintenance, 01/31/21 13:11:00 EDT, [place], [place] - [id number], 163, cm, 12/18/20 9:01:00 EDT, Height Start [...] apnea(Confirmed) 4, 5 Active BHN/CCA/CP-Jo Ann Harvey [phone]/Health skilled nursing active care coordination(Confirmed) Active 1Health Care Agent: [...]
--- OUTSIDE RECORDS SUMMARY | 2023-09-15 07:44 | XMS_ITS | Continuity of Care Document ---
Author Organization [facility] Address [address] [address]- Care Team Providers Care Food And Beverage Director Name Role Phone Kwame Bolton Primary Care Physician [facility]): 09[facility]14/22 - 10/14/22 [facility] [address] [facility] [address] [place] [id number] Allergies, Adverse Reactions, Alerts Substance Reaction [...] 1 4Result Comment: [02/22/2017] [facility] [id number] 5Admin Note: flulaval vis given vis date 11/16/2011 6Admin Note: VIS GIVEN VIS DATE 12/24/2009 7Admin Note: VIS GIVEN 12/25/08 british 8Result Comment: Received at [facility] on [facility] in [place] 9Admin Note: vis given 10Admin Note: vis given 11Result Comment: [01/03/2018 Uncharted] ERROR NOT GIVEN 12Result Comment: [id number] exp 06/2009 13Admin Note: vis given Medications [...] 3 Refills, [facility], 90, TAKE ONE TABLET BY MOUTH DAILY WITH FOOD, 163, cm, 09/26/21 13:20:00 EDT, Height Start Date: 12/15/21 Status: Ordered Biotene Moisturizing Mouth oral spray 1 sprays, By Mouth, 6 times a day, BIOTENE NAME BRAND MAY BE REQUIRED, # 240 mL, 1 Refills, Maintenance, 09/17/22 10:19:00 EDT, [facility] [id number], Partial fill upon patient request if the prescription is for a schedule II... Start Date: 09/17/22 Status: Ordered busPIRone 10 mg oral tablet 10 mg, 1, tablet, By Mouth, 3 times a day, for anxiety, # 90 tablet, Refills 0, Tot. Refills 0, Maintenance, 03/03/22 14:49:00 EDT, Route to Pharmacy Electronically, [facility] [id number], Partial fill upon patient request if... Start [...] mL, 1 Refills, Maintenance, 03/03/22 14:52:00 EDT, [facility] [id number], Partial fill uponpatient request if the prescription is for a schedu... Start Date: 03/03/22 Status: Ordered Comfort EZ Pen [place] 32 gauge x 5/32 Comfort EZ Pen [place] 32 gauge x 5/32 , See Instructions, # 50 Unknown, 11 Refills, USE DAILY WITHvictoza injection, 163, cm, 03/25/21 9:16:00 EST, Height Start Date: 04/01/21 Status: Ordered Comfort EZ Pen [place] 32 gauge x 5/32 Comfort EZ Pen [place] 32 gauge x 5/32 , See Instructions, # 50 Unknown, 0 Refills, USE DAILY WITH victoza injection, 163, cm, 12/18/20 9:01:00 EDT, Height Start Date: 02/05/21 Status: Ordered Comfort EZ Pen [place] 32 gauge x 5/32 Comfort EZ Pen [place] 32 gauge x 5/32 , See Instructions, # 50 Unknown, 11 Refills, Maintenance, USE DAILY WITH victoza injection, 06/04/22 11:52:00 EST, 164, cm, 06/02/22 16:10:00 EST, Height, 122,kg, 05/02/22 15:20:00 EST, Dry Weight Start Date: 06/04/22 Status: Ordered D3 1000 intl units (25 mcg) oral tablet 1 tablet, By Mouth, Daily, # 30 tablet, 5 Refills, 06/24/22 11:25:00 EST, [place], [place] - [id number], 164, cm, 06/02/22 16:10:00 EST, Height, 122, kg, 05/02/22 15:20:00 EST, Dry Weight Start Date: 06/24/22 Status: Ordered Daliresp 500 mcg oral tablet 1 tablet, By Mouth, Daily, # 30 tablet, 6 Refills, [facility], 163, cm, 09/26/21 13:20:00 EDT,Height Start Date: 11/14/21 Status: Ordered docusate sodium 100 mg oral capsule 1 capsule, By Mouth, Daily, # 60 each, 5 Refills, Maintenance, 02/18/22 11:21:00 EDT, [facility], 163, cm, 12/29/21 9:41:00 EDT, Height Start [...] tablet, 1 Refills, Maintenance, 08/18/22 11:20:00 EDT, [facility], [facility] [id number], please dispense in separate bottle., 164, cm, 07/21/22 8:59... Start Date: 08/18/22 Status: Ordered Flonase 50 mcg/inh nasal spray 1 sprays, Nares, Both, Daily, # 16 Gm, 0 Refills, Maintenance, 04/13/22 12:06:00 EST, [place] [id number], Partial fill upon patient request if the prescription is for a schedule II opioid drug., 1 sprays Nares, Both... Start Date: 04/13/22 Stop Date: 05/13/22 Status: Ordered furosemide 40 mg oral tablet 1, tablet, By Mouth, 2 times a day, # 60 tablet, Refills 5, Maintenance, 03/20/22 11:36:00 EDT, Route to Pharmacy Electronically, [facility], 163, cm, 03/03/22 9:51:00 EDT, Height Start Date: 03/20/22 Status: Ordered guaiFENesin 100 mg/5 mL oral liquid 20 mL = 400 mg, By Mouth, 2 times a day, for congestion, cough. with fluids, # 240 mL, 0 Refills, Maintenance, 04/14/21 8:42:00 EST, [facility] [id number], Partial fill upon patient request if the [...] 08/18/22 11:21:00 EDT, Route to Pharmacy Electronically, [facility] - [place], [place] - [id number], 1... Start Date: 08/18/22 Status: Ordered ibuprofen 800 mg oral tablet 1, tablet, By Mouth, Every 8 hours, PRN, TAKE WITH FOOD OR MILK, # 60 tablet, Refills 0, Maintenance, NEEDED FOR SEVERE PAIN, 02/18/22 11:21:00 EDT, Route to Pharmacy Electronically, [facility], 163, cm, 12/29/21 9:41:00 EDT, [...] EST, Route to Pharmacy Electronically, [facility], 164, cm, 07/21/22 8:59:00 EST, Height, 122, kg, 05/02/22 15:20:00 EST, Dry Weight Start Date: 07/23/22 Status: Ordered magnesium gluconate 250 mg oral tablet 1 tablet = 250 mg, By Mouth, 2 times a day, # 60 tablet, 2 Refills, Maintenance, 09/22/22 17:27:00 EDT, [facility] [id number], Partial fill upon patient request if the [...] each, 0 Refills, Maintenance, 08/31/22 9:43:00 EDT, [place], [place] - [id number], Partial fill upon patient request if the [...] each, 5 Refills, Maintenance, 09/16/22 8:19:00 EDT, [place], [place] - [id number], please stop victoza, 0.25 mg Subcutaneous Infusion Every week, 163, cm, 09/16/22 7:13:00 EDT, Height,... Start Date: 09/16/22 Status: Ordered portable oxygen concentrator portable oxygen concentrator, See Instructions, # 1 each, Refills 0, Tot. Refills 0, Maintenance, Dx severe COPD. Codes J44.9, R09.02, 01/31/20 16:26:00 EDT, Compound Start Date: 01/31/20 Status: Ordered Potassium Chloride (Eet-Ocnb-Oai M20) 20 mEq oral tablet, extended release 1 tablet, By Mouth, Daily, # 30 tablet, 6 Refills, Maintenance, 05/25/22 17:29:00 EST, [facility], 164, cm, 05/02/22 15:20:00 EST, [...] tablet, 5 Refills, Maintenance, 08/18/22 11:22:00 EDT, [place], [place] - [id number], please dispense in bubble pack. dose increase... Start Date: 08/18/22 Status: Ordered square orthopedic pillow with central square depression and surrounding bolster square orthopedic pillow with central square depression and surrounding bolster, See Instructions, # 1 each, Refills 0, Tot. Refills 0, Maintenance, Product number [id number] Dx codes: M54.2 Duration: lifetime, 07/21/22 14:25:00 EST, Supply Start Date: 07/21/22 Status: Ordered traZODone 150 mg oral tablet 3 tablet, By Mouth, Daily at bedtime, # 270 tablet, 6 Refills, [facility], 163, cm, 09/26/21 13:20:00 EDT, Height Start Date: 11/14/21 Status: Ordered Trelegy Ellipta 200 mcg-62.5 mcg-25 mcg/inh inhalation powder 1 puffs, Inhalation, Daily, at the same time every day, # 9 each, 3 Refills, Maintenance, 08/31/22 9:41:00 EDT, Powder, [place], [place] - [id number], Partial fill upon patient request if the prescription is for a schedule II opioid d... Start Date: 08/31/22 Status: Ordered value series power lift chair [id number] value series power lift chair [id number], See Instructions, # 1 each, Refills 0, Tot. Refills 0, Maintenance, Diagnosis codes: G89.29, M19.90, J44.9, Z74.09, 01/30/20 9:31:00 EDT, Supply Start Date: 01/30/20 Status: Ordered varenicline 1mg tablet 1 tablet, By Mouth, 2 times a day, # 56 tablet, 5 Refills, Physician Stop 06/24/23 11:28:00 EST, 06/24/22 11:30:00 EST, [facility] [id number], 164, cm, 06/02/22 16:10:00 EST,Height, 122, kg, 05/02/22 15:20:00 EST, Dry Weight Start Date: 06/24/22 Stop Date: 06/24/23 Status: Ordered Ventolin HFA 108 mcg/inh inhalation aerosol with adapter 2 puffs, Inhalation, 4 times a day, PRN Wheezing/Shortness of Breath, 90 days supply, # 1 each, 5 Refills, Maintenance, 04/14/22 16:26:00 EST, [facility] [id number], 163, cm,04/13/22 11:52:00 EST, Height Start Date: 04/14/22 Status: Ordered Victoza 18 mg/3 mL subcutaneous solution = 1.2 mg, Subcutaneous Infusion, Daily, # 15 mL, 11 Refills, Maintenance, 06/02/22 16:53:00 EST, [facility] [id number], Partial fill upon patient request if the [...] 4, 5 Confirmed Active BHN/CCA/CP-Jo Ann Harvey [phone]/[facility] active care coordination Confirmed Active Severe obesity [...] Care Team Personnel Name: Kwame Bolton Position: [facility] PCO Associate Professional Member Role: PCP Address: Address: [address] [place] [address] [place] [address]- Name: Perri Perry RN Position: [facility] RN Member Role: Primary Care Nurse Name: Alicia Vallecillo RN Position: [facility] RN Member Role: Primary Care Nurse Name: Maureen Smith RN Position: [facility] RN Member Role: Primary Care Nurse Name: Sultana Broussard RN Position: [facility] RN Member Role: Primary Care Nurse Name: Abigail Dior RN Position: [facility] RN Member Role: Primary Care Nurse Name: Ivette Carter RN Position: [facility] RN Member Role: Primary Care Nurse Name: Rukhsana Matthews RN Position: [facility] Dealer Accounts Investigator Member Role: Primary Care Nurse Care Team Related Persons Name: TANA MENDOZA Address: [place] [address] Name: MARIA TERESA UMAÑA Address: home [address] [place] [address] Name: ANG GAFFNEY Address: home [address] [place] [address] Name: CHILO AHMADI Address: home [address] [place] [address]
--- OUTSIDE RECORDS SUMMARY | 2023-09-15 07:44 | XMS_ITS | Continuity of Care Document ---
Author Organization [facility] Address [address] [place] [address]- Care Team Providers Care Booking Supervisor Name Role Phone Kwame Bolton Primary Care Phys[facility]): [facility] - 12/14/20 [facility] [address] [place] [id number] Attending Physician: Not on Staff, Attending [...] Gi cecile influenza virus vaccine, inactivated 9 10/13/09 Gi cecile tetanus-diphtheria toxoids (Td) 09/27/18 Given pneumococcal 23-valent vaccine 10 01/03/18 Given pneumococcal 13-valent vaccine 02/10/16 Given influ virus vac, H1N1, inactive(oldterm) 11 05/17/09 Given Tet/Diphth/Acel, Pertussis (oldterm) 12 05/30/08 G iven Pneumococcal Poly (PPV23) (oldterm) 08/08/06 Given Pneumococcal Vaccine (oldterm) 08/08/06 Given 1Result Comment: dose 2 2Result Comment: dose 1 3Result Comment: Received at [facility] on [facility] in [place] 4Admin Note: vis given 5Admin Note: vis given 6Result Comment: [02/22/2017] [facility] [id number] 7Admin Note: flulaval vis given vis date 11/16/2011 8Admin Note: VIS GIVEN VIS DATE 12/24/2009 9Admin Note: VIS GIVEN 12/25/08 maltese 10Result Comment: [01/03/2018 Uncharted] ERROR NOT GIVEN 11Result Comment: [id number] exp 06/2009 12Admin Note: vis given Medications [...] EST, Compound Start Date: 07/12/19 Status: Ordered Leiter Saline 0.65% nasal solution See Instructions, use twice a day to rinse the nasal passages., # 120 mL, 1 Refills, Maintenance, 10/16/20 11:31:00 EDT, [facility] - [place], [place] - [id number], Partial fill upon patient request if the prescription is for a schedule II opioid... Start Date: 10/16/20 Status: Ordered Biotene Moisturizing Mouth oral spray 1 sprays, By Mouth, 6 times a day, please dispense 2 bottles per month., # 2 each, 5 Refills, Maintenance, 06/11/20 11:38:00 EST, [place], [place] - [id number], 1 sprays By Mouth 6 times a day,Instr:please dispense 2 bottles per month... Start Date: 06/11/20 Status: Ordered Breo Ellipta 200 mcg-25 mcg/inh inhalation powder See Instructions, INHALE 1 PUFF BY MOUTH INTO THE lungs DAILY. rinse mouth and throat after use, # 60 Unknown, 11 Refills, 03/27/20 10:56:00 EST, [place], [place] - [id number], 30, INHALE 1 PUFF BY MOUTH INTO [...] tablet, 0 Refills, Acute, 11/04/20 12:42:00 EDT, [facility], 163, cm, 10/16/20 10:59:00 EDT, Height Start Date: 11/04/20 Status: Ordered clonazePAM 0.5 mg oral tablet 2 tablet = 1 mg, By Mouth, 2 times a day, # 120 tablet, 2 Refills, Maintenance, 10/07/20 18:45:00 EDT, [place], [place] - [id number], 163, cm, 09/24/20 13:25:00 EDT, Height Start Date: 10/07/20 Stop Date: 01/05/21 Status: Ordered Daliresp 500 mcg oral tablet 1 tablet, By Mouth, Daily, # 30 tablet, 6 Refills, Maintenance, 10/07/20 18:44:00 EDT, [facility], 163, cm, 09/24/20 13:25:00 EDT, Height Start [...] each, 5 Refills, Maintenance, 11/04/20 10:05:00 EDT, [facility] [id number], 163, cm, 10/16/20 10:59:00 EDT, Height Start [...] Gm, 2 Refills, Maintenance, 09/24/20 14:53:00 EDT, [facility] [id number], 1 sprays Nares, Both 2 times a day, 163, cm, 09/24/20 13:25:00 EDT, Height Start Date: 09/24/20 Status: Ordered furosemide 40 mg oral tablet 40 mg, 1, tablet, By Mouth, 2 times a day, # 60 tablet, Refills 5, Tot. Refills 5, Maintenance, 08/05/20 13:27:00 EDT, Route to Pharmacy Electronically, [facility] [id number], 163, cm, 07/31/20 13:11:00 EDT, Height Start Date: 08/05/20 Stop Date: 02/01/21 Status: Ordered HOME BP MONITOR WITH WRIST CUFF HOME BP MONITOR WITH WRIST CUFF, See Instructions, # 1 each, Refills 0, Tot. Refills 0, Maintenance, HOME BP MONITOR WITH WRIST CUFF DX HYPERTENSION I10, 07/28/20 12:14:00 EDT, Supply Start Date: 12/12/19 Status: [...] 01/18/20 15:46:00 EDT, Route to Pharmacy Electronically, [facility]/pharmacy #[id number], 163, cm, 07/11/19 13:24:00 EST, Height, 114, kg, 04/19/18 23:58:00 EST, Dry Weight Start Date: 01/18/20 Status: Ordered loratadine 10 mg oral tablet 10 mg, 1, tablet, By Mouth, Daily, # 10 tablet, Refills 0, Tot. Refills 0, Maintenance, 05/11/21 14:52:00 EDT, Route to Pharmacy Electronically, [place], [place] - [id number], Partial fill upon patient request if the [...] Refills, Maintenance, 11/14/20 12:14:00 EDT, [facility], [place], [place] - [id number], Partial fill upon patient request if the [...] 11/04/20 12:42:00 EDT, Route to Pharmacy Electronically, [facility], 163, cm, 10/16/20 10:59:00 EDT, Height Start Date: 11/04/20 Status: Ordered portable oxygen concentrator portable oxygen concentrator, See Instructions, # 1 each, Refills 0, Tot. Refills 0, Maintenance, Dx severe COPD. Codes J44.9, R09.02, 01/31/20 16:26:00 EDT, Compound Start Date: 01/31/20 Status: Ordered Potassium Chloride (Smt-Ihfl-Grl M20) 20 mEq oral tablet, extended release 1 tablet, By Mouth, Daily, # 30 tablet, 5 Refills, Maintenance, 11/04/20 12:42:00 EDT, [facility], 163, cm, 10/16/20 10:59:00 EDT, Height [...] each, 0 Refills, Maintenance, 08/29/20 19:11:00 EDT, [facility] [id number], Partial fill upon patient request if the prescription... Start Date: 08/29/20 Status: Ordered sertraline 50 mg oral tablet 1 tablet = 50 mg, By Mouth, Daily, please d/c 25mg tablet., # 30 tablet, 5 Refills, Maintenance, 09/24/20 14:52:00 EDT, [facility] [id number], Partial fill upon patient request if the prescription is for a schedule II opioid d... Start Date: 09/24/20 Status: Ordered Shingrix intramuscular injection = 0.5 mL, Intramuscular, Once, repeat dose in 2 to 6 months, # 2 each, 0 Refills, Soft Stop, 01/17/20 11:40:00 EDT, Powder, [facility]/pharmacy #[id number], 0.5 mL Intramuscular Once,Instr:repeat dose in 2 to 6 months, 163, cm, 07/11/19 13:24:00 EST, Height, 114,... Start Date: 01/17/20 Status: Ordered traZODone 150 mg oral tablet 3 tablet, By Mouth, Daily at bedtime, # 90 tablet, 0 Refills, Maintenance, 12/03/20 15:05:00 EDT, [facility], 163, cm, 10/16/20 10:59:00 EDT, Height Start Date: 12/03/20 Status: Ordered triamcinolone 0.025% topical cream 1 applicator, Topically, 3 times a day, PRN eczema, # 80 Gm, 2 Refills, Maintenance, 08/16/19 15:48:00 EDT, [place], [place] -, 1 applicator Topically 3 times a day,PRN:eczema, 163, cm, 07/11/19 13:24:00 EST, Height, 114, kg, 04/19/18... Start Date: 08/16/19 Status: Ordered value series power lift chair [id number] value series power lift chair [id number], See Instructions, # 1 each, Refills 0, Tot. Refills 0, Maintenance, Diagnosis codes: G89.29, M19.90, J44.9, Z74.09, 01/30/20 9:31:00 EDT, Supply Start Date: 01/30/20 Status: Ordered Ventolin HFA 108 mcg/inh inhalation aerosol with adapter 2 puffs, Inhalation, 4 times a day, PRN Wheezing/Shortness of Breath, 90 days supply, # 1 each, 5 Refills, Maintenance, 10/07/20 6:45:00 EDT, [place], [place] - [id number], 163, cm, 09/24/20 13:25:00 EDT, Height Start Date: 10/07/20 Status: Ordered Vitamin D3 1000 intl units oral tablet 1 tablet = 1,000 International_Units, By Mouth, Daily, # 90 tablet, 1 Refills, Maintenance, 08/10/20 15:51:00 EDT, [place], [place] - [id number], 163, cm, 07/31/20 13:11:00 EDT, Height Start [...] apnea(Confirmed) 4, 5 Active BHN/CCA/CP-Jo Ann Harvey [phone]/Health retirement active care coordination(Confirmed) Active 1Health Care [...]
--- OUTSIDE RECORDS SUMMARY | 2023-09-15 07:44 | XMS_ITS | Continuity of Care Document ---
Author Organization [facility] Address [address] [place] [address]- Care Team Providers Care Camera Person Name Role Phone Kwame Bolton Primary Care Physician [facility]14[facility]23 - 06/13/23 [facility] [address] [place] [id number]- Allergies, Adverse Reactions, Alerts Substance Reaction Severity [...] vaccine, inactivated 5 02/26/09 Gi cecile SARS-CoV-2(COVID-19)mRNA-LNP vac([id number]) 02/25/23 Recorded SARS-CoV-2 (COVID-19) mRNA-1273 vaccine 6 [...] 1Result Comment: [02/16/2023] Given at [facility] Averecord can be obtained from [facility] 2Result Comment: [02/22/2017] [facility] [id number] 3Admin Note: flulaval vis given vis date 11/16/2011 4Admin Note: VIS GIVEN VIS DATE 12/24/2009 5Admin Note: VIS GIVEN 12/25/08 [place] 6Result Comment: new booster 7Result Comment: dose 2 8Result Comment: dose 1 9Result Comment: Received at [facility] on [facility] in [place] 10Admin Note: vis given 11Admin Note: vis given 12Result Comment: [id number] exp 06/2009 13Admin Note: vis given Medications [...] EST, Compound Start Date: 07/12/19 Status: Ordered [place] Saline 0.65% nasal gel 1 sprays, Nares, Both, 4 times a day, # 22.5 Gm, 1 Refills, Maintenance, 04/12/23 8:20:00 EST, [facility] [id number], Partial fill upon patient request if the prescription isfor a schedule II opioid drug., 1 sprays Nares, Bot... Start Date: 04/12/23 Status: Ordered Azithromycin 5 Day Dose Pack 250 mg oral tablet See Instructions, as directed on package labeling, # 6 each, 0 Refills, Maintenance, 01/05/23 14:03:00 EDT, [facility] [id number], Partial fill upon patient request if the prescription is for a schedule II opioid drug., 163, c... Start Date: 01/05/23 Status: Ordered B-Complex with B-12 oral tablet See Instructions, TAKE 1 TABLET BY MOUTH ONCE DAILY WITH FOOD, # 90 tablet, 1 Refills, Maintenance,05/28/23 17:52:00 EST, [facility] [id number], 90, TAKE 1 TABLET BY MOUTH ONCE DAILY WITH FOOD, 163, cm, 05/06/23 8:47:00 EST,... Start Date: 05/28/23 Status: Ordered Biotene Moisturizing Mouth oral spray 1 sprays, By Mouth, 6 times a day, BIOTENE NAME BRAND MAY BE REQUIRED, # 240 mL, 5 Refills, Maintenance, 11/18/22 8:47:00 EDT, [facility] [id number], Partial fill upon patient request if the prescription is for a schedule II o... Start Date: 11/18/22 Status: Ordered Cane See Instructions, # 1 each, Maintenance, DX LEFT KNEE PAIN /ACL TEAR /ARTHRITIS DX CODE M25.562 HT 163 CM WT 123 KG DURATION -LIETIME PATIENTS VERA BOYKIN, 01/06/19 8:36:49 EDT, Compound Start Date: 01/06/19 Status: Ordered Comfort EZ Pen [place] 32 gauge x 5/32 Comfort EZ Pen [place] 32 gauge x 5/32 , See Instructions, # 50 Unknown, 11 Refills, USE DAILY WITHvictoza injection, 163, cm, 03/25/21 9:16:00 EST, Height Start Date: 04/01/21 Status: Ordered Comfort EZ Pen [place] 32 gauge x 5/32 Comfort EZ Pen [place] 32 gauge x 5/32 , See Instructions, # 50 Unknown, 0 Refills, USE DAILY WITH victoza injection, 163, cm, 12/18/20 9:01:00 EDT, Height Start Date: 02/05/21 Status: Ordered Comfort EZ Pen [place] 32 gauge x 5/32 Comfort EZ Pen [place] 32 gauge x 5/32 , See Instructions, [...] each, 5 Refills, Maintenance, 03/17/23 9:55:00 EDT, [facility] [place], [place] - [id number], Partial fill upon patient request if the prescription is for a schedule II... Start Date: 03/17/23 Status: Ordered docusate sodium 100 mg oral capsule 1 capsule, By Mouth, 2 times a day, # 60 each, 5 Refills, Maintenance, 05/14/23 10:27:00 EST, [facility], 163, cm, 05/06/23 8:47:00 EST, Height, 122, kg, 05/02/22 15:20:00 EST, Dry Weight Start Date: 05/14/23 Status: Ordered Ear Pain MD 4% otic liquid 2 drops, Ears, Both, 3 times a day, PRN Pain , Moderate, # 12.5 mL, 0 Refills, Maintenance, 01/04/23 21:24:00 EDT, [place], [place] - [id number], Partial fill upon patient request ifthe prescription [...] 5 Refills, Maintenance, 05/27/23 18:43:00 EST, [facility] [place], 163, cm, 05/06/23 8:47:00 EST, Height, 122, kg, 05/02/22 15:20:00 EST, Dry Weight Start Date: 05/27/23 Status: Ordered fluticasone 50 mcg/inh nasal spray 1 sprays, Nares, Both, Daily, # 16 Gm, 2 Refills, Maintenance, 12/29/22 17:51:00 EDT, [place], [place] - [id number], Partial fill upon patient request if the prescription is for a schedule II opioid drug., 1 sprays Nares, Both Daily,... Start Date: 12/29/22 Status: Ordered furosemide 40 mg oral tablet 1, tablet, By Mouth, 2 times a day, # 60 tablet, Refills 5, Maintenance, 04/13/23 13:49:00 EST, Route to Pharmacy Electronically, [facility] [place], 163, cm, 04/12/23 8:10:00 EST, Height, 122, [...] 04/15/23 14:20:00 EST, Route to Pharmacy Electronically, [facility], 163, cm, 04/12/23 8:10:00 EST, [...] 02/10/23 10:21:00 EDT, Route to Pharmacy Electronically, [facility], 163, cm, 01/20/23 8:13:00 EDT, Height, 122, kg, 05/02/22 15:20:00 EST, Dry Weight Start Date: 02/10/23 Status: Ordered Mag-G 500 mg oral tablet 0.5 tablet, By Mouth, 2 times a day, # 30 tablet, 2 Refills, Maintenance, 02/15/23 18:46:00 EDT, [facility], 163, cm, 01/20/23 8:13:00 EDT, Height, 122, kg, 05/02/22 15:20:00 EST, Dry Weight Start Date: 02/15/23 Status: Ordered Nicotrol Inhaler 10 mg inhalation device See Instructions, To use with nicotine cartridges in place of cigarettes, # 3 each, 0 Refills, Maintenance, 08/31/22 9:43:00 EDT, [place], [place] - [id number], Partial fill upon patient request if the [...] Start Date: 01/31/20 Status: Ordered Potassium Chloride (Fcz-Mixg-Jfl M20) 20 mEq oral tablet, extended release [...] tablet, 6 Refills, Maintenance, 01/13/23 15:35:00 EDT, [facility], 163, cm, 12/22/22 8:54:00 EDT, [...] tablet, 5 Refills, Maintenance, 02/23/23 13:56:00 EDT, [place], [place] - [id number], please dispense in bubble pack. dose increase... Start Date: 02/23/23 Status: Ordered square orthopedic pillow with central square depression and surrounding bolster square orthopedic pillow with central square depression and surrounding bolster, See Instructions, # 1 each, Refills 0, Tot. Refills 0, Maintenance, Product number [id number] Dx codes: M54.2 Duration: lifetime, 07/21/22 14:25:00 EST, Supply Start Date: 07/21/22 Status: Ordered traZODone 150 mg oral tablet 3 tablet, By Mouth, Daily at bedtime, # 270 tablet, 6 Refills, 10/26/22 10:18:00 EDT, [place], [place] - [id number], 163, cm, 10/14/22 8:43:00 EDT, Height, 122, kg, 05/02/22 15:20:00EST, Dry Weight Start Date: 10/26/22 Status: Ordered Trelegy Ellipta 200 mcg-62.5 mcg-25 mcg/inh inhalation powder 1 puffs, Inhalation, Daily, at the same time every day, # 9 each, 3 Refills, Maintenance, 08/31/22 9:41:00 EDT, Powder, [place], [place] - [id number], Partial fill upon patient request if the prescription is for a schedule II opioid d... Start Date: 08/31/22 Status: Ordered value series power lift chair [id number] value series power lift chair [id number], See Instructions, # 1 each, Refills 0, Tot. Refills 0, Maintenance, Diagnosis codes: G89.29, M19.90, J44.9, Z74.09, 01/30/20 9:31:00 EDT, Supply Start Date: 01/30/20 Status: Ordered Ventolin HFA 108 mcg/inh inhalation aerosol with adapter 2 puffs, Inhalation, 4 times a day, PRN NEEDED FOR SHORTNESS OF BREATH OR FOR WHEEZING, # 18 Gm,5 Refills, Maintenance, 04/13/23 13:49:00 EST, [facility], 163, cm, 04/12/23 8:10:00 EST, [...] 4, 5 Confirmed Active BHN/CCA/CP-Jo Ann Harvey [phone]/Health fdc active care coordination Confirmed Active BHN/CCA/LCC Lisa Kitchenquillo [phone]/Health fdc active care coordination Confirmed Active Severe [...] Kwame Bolton Position: [facility] PCO Associate Professional Member Role: PCP Address: Address: [address] [place] [address] [place] [address]- Name: Perri Perry RN Position: [facility] RN Member Role: Primary Care Nurse Name: Alicia Vallecillo RN Position: [facility] RN Member Role: Primary Care Nurse Name: Maureen Smith RN Position: [facility] RN Member Role: Primary Care Nurse Name: Sultana Broussard RN Position: [facility] RN Member Role: Primary Care Nurse Name: Abigail Dior RN Position: [facility] RN Member Role: Primary Care Nurse Name: Ivette Carter RN Position: [facility] RN Member Role: Primary Care Nurse Name: Rukhsana Matthews RN Position: [facility] Hospital Track Template Maker Member Role: Primary Care Nurse Care Team Related Persons Name: TANA MENDOZA Address: home UNKNOWN CALL [facility] [address] Name: MARIA TERESA UMAÑA Address: home [address] [place] [address] Name: ANG GAFFNEY Address: home [address] [place] [address] Name: CHILO AHMADI Address: home [address] [address]
--- OUTSIDE RECORDS SUMMARY | 2023-09-15 07:44 | XMS_ITS | Continuity of Care Document ---
Author Organization [facility] Address [address] [place] [address]- Care Team Providers Care Material Reprocessing Associate Name Role Phone Kwame Bolton Primary Care Physician [facility] 12[facility]19 - 01/06/20 [facility] [address] [place] [address]- [facility] Allergies, Adverse Reactions, Alerts Substance Reaction Severity [...] (PPV23) (oldterm) 08/08/06 Given Pneumococcal Vaccine (oldterm) 3/25/07 Given 1Result Comment: [02/22/2017] [facility] [id number] 2Admin Note: flulaval vis given vis date 11/16/2011 3Admin Note: VIS GIVEN VIS DATE 12/24/2009 4Admin Note: VIS GIVEN 12/25/08 [place] 5Result Comment: [01/03/2018 Uncharted] ERROR NOT GIVEN 6Result Comment: [id number] exp 06/2009 7Admin Note: vis given 8Admin [...] 08/16/19 15:54:00 EDT, Route to Pharmacy Electronically, [place], [place] -, 163, cm, 07/11/19 13:24:00 EST, [...] 5 Refills, Maintenance, 08/16/19 15:52:00 EDT, Powder, [place], [place] -, 1 puffs Inhalation Daily,Instr:[place] [...] Acute 02/12/20 15:52:00 EDT, 08/16/19 15:52:00 EDT, [place], [place] -, 163, cm, 07/11/19 13:24:00 EST,Height, 114, kg, 04/19/18 23:58:00 EST, Dry Weight Start Date: 08/16/19 Stop Date: 02/12/20 Status: Ordered clonazePAM 0.5 mg oral tablet 2 tablet = 1 mg, By Mouth, 2 times a day, dose increased to 2 tabs bid 05/2018, # 120 tablet, 2 Refills, Maintenance, 11/22/19 8:21:00 EDT, [place], [place] -, 163, cm, 07/11/19 13:24:00 EST, Height, 114, kg, 04/19/18 23:58:00 EST, Start Date: 11/22/19 Stop Date: 02/20/20 Status: Ordered Daliresp 500 mcg oral tablet See Instructions, 1 tablet By Mouth Daily, # 30 each, 6 Refills, Maintenance, 08/16/19 15:51:00 EDT, [place], [place] -, 163, cm, 07/11/19 13:24:00 EST, [...] 12/15/19 10:10:00 EDT, Route to Pharmacy Electronically, [place], [place] - [id number], 163, cm, 07/11/19 13:24:00 EST, Height, 114, [...] Gm, 5 Refills, Maintenance, 08/16/19 15:53:00 EDT, [place], [place] -, 1 sprays Nares, Both 2 times a day, 163, cm, 07/11/19 13:24:00 EST, Height, 114, kg, 04/19/18 23:58:00 EST, Dry Weight Start Date: 08/16/19 Status: Ordered furosemide 40 mg oral tablet 40 mg, 1, tablet, By Mouth, 2 times a day, # 60 tablet, Refills 5, Tot. Refills 5, Maintenance, 08/16/19 15:51:00 EDT, Route to Pharmacy Electronically, [place], [place] -, 163, cm, 07/11/19 13:24:00 EST, Height, 114, kg, 04/19/18 23:... Start Date: 08/16/19 Stop Date: 02/12/20 Status: Ordered guaiFENesin 100 mg/5 mL oral liquid 20 mL = 400 mg, By Mouth, Every 6 hours, PRN Cough and Congestion, with fluids, # 240 mL, 0 Refills, Maintenance, 09/28/19 14:14:00 EDT, [place], [place] -, 163, cm, 07/11/19 13:24:00 EST, [...] 12/05/19 8:40:00 EDT, Route to Pharmacy Electronically, [place], [place] -, 163, cm, 07/11/19 13:24:... Start [...] 30 tablet, 5 Refills, 11/13/19 14:32:00 EDT, [place], [place] -, 163, cm, 07/11/19 13:24:00 EST, [...] 09/28/19 14:13:00 EDT, Route to Pharmacy Electronically, [facility] [place], [place] -, 163, cm, 07/11/2012:24:00 EST, Height, [...] 12/26/19 16:58:00 EDT, Route to Pharmacy Electronically, [place], [place] - [id number], 163, cm, 07/11/19 13:24:00 EST, Height, 114, [...] tablet, 5 Refills, Maintenance, 08/16/19 15:50:00 EDT, [place], [place] -, 163, cm, 07/11/19 13:24:00 EST, Height, 114, kg, 04/19/18 23:58:00EST, Dry Weight Start Date: 08/16/19 Status: Ordered pregabalin 100 mg oral capsule 1 capsule = 100 mg, By Mouth, 3 times a day, dose increase to 100mg tid 12/05/2019., # 90 capsule, 2Refills, Maintenance, 12/05/19 8:38:00 EDT, [place], [place] -, 163, cm, 07/11/19 13:24:00 EST, Height, 114, kg, 04/19/18 23:58:00 EST... Start Date: 12/05/19 Status: Ordered pregabalin 75 mg oral capsule 1 capsule = 75 mg, By Mouth, 3 times a day, dose decrease to 75mg tid 12/26/19, # 90 capsule, 0 Refills, Maintenance, 12/26/19 16:59:00 EDT, [place], [place] - [id number], 163, cm, 07/11/19 13:24:00 EST, Height, 114, [...] tablet, 5 Refills, Maintenance, 08/16/19 15:52:00 EDT, [place], [place] -, 163, cm, 07/11/19 13:24:00 EST, Height, 114, kg, 1... Start Date: 08/16/19 Status: Ordered triamcinolone 0.025% topical cream 1 applicator, Topically, 3 times a day, PRN eczema, # 80 Gm, 2 Refills, Maintenance, 08/16/19 15:48:00 EDT, [place], [place] -, 1 applicator Topically 3 times a day,PRN:eczema, 163, cm, 07/11/19 13:24:00 EST, Height, 114, kg, 04/19/18... Start Date: 08/16/19 Status: Ordered Ventolin HFA 108 mcg/inh inhalation aerosol with adapter 2 puffs, Inhalation, 4 times a day, PRN Wheezing/Shortness of Breath, 90 days supply, # 1 each, 5 Refills, Maintenance, 08/16/19 15:53:00 EDT, [place], [place] -, 163, cm, 07/11/19 13:24:00 EST, Height, 114, kg, 04/19/18 23:58:00 EST,... Start Date: 08/16/19 Status: Ordered verapamil 120 mg oral tablet 1 tablet = 120 mg, By Mouth, 3 times a day, dose increase 120 tid 09/28/2019., # 90 tablet, 5 Refills, Maintenance, 11/13/19 14:41:00 EDT, [place], [place] -, 163, cm, 07/11/19 13:24:00 EST, Height, 114, kg, 04/19/18 23:58:00 EST, Dry... Start Date: 11/13/19 Status: Ordered Vitamin D3 1000 intl units oral tablet 1 tablet = 1,000 International_Units, By Mouth, Daily, # 90 tablet, 3 Refills, Maintenance, 08/16/19 15:51:00 EDT, [facility] [place], [place] -, 163, cm, 07/11/19 13:24:00 EST, [...]
--- OUTSIDE RECORDS SUMMARY | 2023-09-15 07:44 | XMS_ITS | Continuity of Care Document ---
Author Organization [facility] Address [address] [place] [address]- Care Team Providers Care Clinical Massage Therapist Name Role Phone Kwame Bolton Primary [facility] Phys[facility]): [facility] - 07/29/22 [facility] [address] [place] [id number] Attending Physician: Not on Staff, [...] 3Result Comment: dose 1 4Result Comment: [02/22/2017] [facility] [id number] 5Admin Note: flulaval vis given vis date 11/16/2011 6Admin Note: VIS GIVEN VIS DATE 12/24/2009 7Admin Note: VIS GIVEN 12/25/08 nepalese 8Result Comment: Received at [facility] on [facility] in [place] 9Admin Note: vis given 10Admin Note: vis given 11Result Comment: [01/03/2018 Uncharted] ERROR NOT GIVEN 12Result Comment: [id number] exp 06/2009 13Admin Note: vis given Medications [...] 03/03/22 14:49:00 EDT, Route to Pharmacy Electronically, [facility] [id number], Partial fill upon patient request if... Start [...] mL, 1 Refills, Maintenance, 03/03/22 14:52:00 EDT, [facility] [phone], Partial fill uponpatient request if the prescription is for a schedu... Start Date: 03/03/22 Status: Ordered Comfort EZ Pen [place] 32 gauge x 5/32 Comfort EZ Pen [place] 32 gauge x 5/32 , See Instructions, # 50 Unknown, 11 Refills, USE DAILY WITHvictoza injection, 163, cm, 03/25/21 9:16:00 EST, Height Start Date: 04/01/21 Status: Ordered Comfort EZ Pen [place] 32 gauge x 5/32 Comfort EZ Pen [place] 32 gauge x 5/32 , See Instructions, # 50 Unknown, 0 Refills, USE DAILY WITH victoza injection, 163, cm, 12/18/20 9:01:00 EDT, Height Start Date: 02/05/21 Status: Ordered Comfort EZ Pen [place] 32 gauge x 5/32 Comfort EZ Pen [place] 32 gauge x 5/32 , See Instructions, # 50 Unknown, 11 Refills, Maintenance, USE DAILY WITH victoza injection, 06/04/22 11:52:00 EST, 164, cm, 06/02/22 16:10:00 EST, Height, 122,kg, 05/02/22 15:20:00 EST, Dry Weight Start Date: 06/04/22 Status: Ordered D3 1000 intl units (25 mcg) oral tablet 1 tablet, By Mouth, Daily, # 30 tablet, 5 Refills, 06/24/22 11:25:00 EST, [place], [place] - [id number], 164, cm, 06/02/22 16:10:00 EST, Height, 122, [...] Gm, 0 Refills, Maintenance, 04/13/22 12:06:00 EST, [place], [facility], [facility] [id number], Partial fill upon patient request if the prescription is for a schedule II opioid drug., 1 sprays Nares, Both... Start Date: 04/13/22 Stop Date: 05/13/22 Status: Ordered furosemide 40 mg oral tablet 1, tablet, By Mouth, 2 times a day, # 60 tablet, Refills 5, Maintenance, 03/20/22 11:36:00 EDT, Route to Pharmacy Electronically, [facility], 163, cm, 03/03/22 9:51:00 EDT, Height Start Date: 03/20/22 Status: Ordered guaiFENesin 100 mg/5 mL oral liquid 20 mL = 400 mg, By Mouth, 2 times a day, for congestion, cough. with fluids, # 240 mL, 0 Refills, Maintenance, 04/14/21 8:42:00 EST, [facility], [facility] [id number], Partial fill upon patient request if the [...] 07/24/22 9:09:00 EST, Route to Pharmacy Electronically, [facility], [facility] [id number], 16... Start Date: 07/24/22 Status: Ordered ibuprofen [...] [facility], 164, cm, 07/21/22 8:59:00 EST, Height, 122, kg, 05/02/22 15:20:00 EST, Dry Weight Start Date: 07/23/22 Status: Ordered magnesium gluconate 250 mg oral tablet 1 tablet = 250 mg, By Mouth, 2 times a day, # 60 tablet, 2 Refills, Maintenance, 04/27/22 11:27:00 EST, [place], [place] - [id number], Partial fill upon patient request if the [...] Start Date: 01/31/20 Status: Ordered Potassium Chloride (Rle-Toml-Aaf M20) 20 mEq oral tablet, extended release 1 tablet, By Mouth, Daily, # 30 tablet, 6 Refills, Maintenance, 05/25/22 17:29:00 EST, [facility], 164, cm, 05/02/22 15:20:00 EST, Height, [...] tablet, 11 Refills, Maintenance, 07/21/22 9:08:00 EST, [facility] - [place], [place] - [phone], bubble pack please; dose increase to 100mg 07/21/22, 164,... Start Date: 07/21/22 Status: Ordered square orthopedic pillow with central square depression and surrounding bolster square orthopedic pillow with central square depression and surrounding bolster, See Instructions, # 1 each, Refills 0, Tot. Refills 0, Maintenance, Product number [id number] Dx codes: M54.2 Duration: lifetime, 07/21/22 14:25:00 EST, Supply Start Date: 07/21/22 Status: Ordered traZODone 150 mg oral tablet 3 tablet, By Mouth, Daily at bedtime, # 270 tablet, 6 Refills, [facility], 163, cm, 09/26/21 13:20:00 EDT, Height Start Date: 11/14/21 Status: Ordered value series power lift chair [id number] value series power lift chair [id number], See Instructions, # 1 each, Refills 0, Tot. Refills 0, Maintenance, Diagnosis codes: G89.29, M19.90, J44.9, Z74.09, 01/30/20 9:31:00 EDT, Supply Start Date: 01/30/20 Status: Ordered varenicline 1mg tablet 1 tablet, By Mouth, 2 times a day, # 56 tablet, 5 Refills, Physician Stop 06/24/23 11:28:00 EST, 06/24/22 11:30:00 EST, [facility] [id number], 164, cm, 06/02/22 16:10:00 EST,Height, 122, kg, 05/02/22 15:20:00 EST, Dry Weight Start Date: 06/24/22 Stop Date: 06/24/23 Status: Ordered Ventolin HFA 108 mcg/inh inhalation aerosol with adapter 2 puffs, Inhalation, 4 times a day, PRN Wheezing/Shortness of Breath, 90 days supply, # 1 each, 5 Refills, Maintenance, 04/14/22 16:26:00 EST, [facility] [id number], 163, cm,04/13/22 11:52:00 EST, Height Start Date: 04/14/22 Status: Ordered Victoza 18 mg/3 mL subcutaneous solution = 1.2 mg, Subcutaneous Infusion, Daily, # 15 mL, 11 Refills, Maintenance, 06/02/22 16:53:00 EST, [facility] [id number], Partial fill upon patient request if the [...] 4, 5 Confirmed Active BHN/CCA/CP-Jo Ann Harvey [phone]/Health prison active care coordination Confirmed Active Severe obesity [...] Associate Professional Member Role: PCP Address: Address: [address] [place] [address] [place] [address]- Name: Perri Perry RN Position: S RN [...] Name: Rukhsana Matthews RN Position: [facility] Gas Welder Apprentice Member Role: Primary Care Nurse Care Team Related Persons Name: TANA MENDOZA Address: [place] [address] Name: MARIA TERESA UMAÑA Address: home [address] [place] [address] Name: ANG GAFFNEY Address: home [address] [place] [address] Name: CHILO AHMADI Address: home [address] [address]
--- OUTSIDE RECORDS SUMMARY | 2023-09-15 07:44 | XMS_ITS | Continuity of Care Document ---
Author Organization [facility] Address [address] [place] [address]- Care Team Providers Care Production Laborer Name Role Phone Kwame Bolton Primary Care Physician [facility] - 06/04/22 [facility] [address] [place] [id number] Attending Physician: Not on Staff, [...] Comment: dose 1 4Result Comment: Received at [facility] on [facility] in [place] 5Admin Note: vis given 6Admin Note: vis given 7Result Comment: [02/22/2017] [facility] [id number] 8Admin Note: flulaval vis given vis date 11/16/2011 9Admin Note: VIS GIVEN VIS DATE 12/24/2009 10Admin Note: VIS GIVEN 12/25/08 croatian 11Result Comment: [01/03/2018 Uncharted] ERROR NOT GIVEN 12Result Comment: [id number] exp 06/2009 13Admin Note: vis given Medications [...] WITH FOOD, # 90 tablet, 3 Refills, [facility], 90, TAKE ONE TABLET BY MOUTH DAILY WITH FOOD, 163, cm, 09/26/21 13:20:00 EDT, Height Start Date: 12/15/21 Status: Ordered Breo Ellipta 200 mcg-25 mcg/inh inhalation powder 1 puffs, Inhalation, Daily, rinse mouth and throat after use, # 60 Unknown, 5 Refills, Maintenance,02/18/22 11:21:00 EDT, [facility], 30, INHALE 1 PUFF BY MOUTH INTO THE lungs DAILY. rinse mouth and throat after use, 163, cm, 12/29/21 9:41:00 ED... Start Date: 02/18/22 Status: Ordered busPIRone 10 mg oral tablet 10 mg, 1, tablet, By Mouth, 3 times a day, for anxiety, # 90 tablet, Refills 0, Tot. Refills 0, Maintenance, 03/03/22 14:49:00 EDT, Route to Pharmacy Electronically, [place], [place]- [id number], Partial fill upon patient request if... Start [...] mL, 1 Refills, Maintenance, 03/03/22 14:52:00 EDT, [place], [place] - [id number], Partial fill uponpatient request if the prescription is for a schedu... Start Date: 03/03/22 Status: Ordered Comfort EZ Pen [place] 32 gauge x 5/32 Comfort EZ Pen [place] 32 gauge x 5/32 , See Instructions, # 50 Unknown, 11 Refills, USE DAILY WITHvictoza injection, 163, cm, 03/25/21 9:16:00 EST, Height Start Date: 04/01/21 Status: Ordered Comfort EZ Pen [place] 32 gauge x 5/32 Comfort EZ Pen [place] 32 gauge x 5/32 , See Instructions, # 50 Unknown, 0 Refills, USE DAILY WITH victoza injection, 163, cm, 12/18/20 9:01:00 EDT, Height Start Date: 02/05/21 Status: Ordered Comfort EZ Pen [place] 32 gauge x Comfort EZ Pen [place] 32 gauge x 5/32 , See Instructions, # 50 Unknown, 11 Refills, Maintenance, USE DAILY WITH victoza injection, 06/04/22 11:52:00 EST, 164, cm, 06/02/22 16:10:00 EST, Height, 122,kg, 05/02/22 15:20:00 EST, Dry Weight Start Date: 06/04/22 Status: Ordered D3 1000 intl units (25 mcg) oral tablet 1 tablet, By Mouth, Daily, # 30 tablet, 5 Refills, [facility], 163, cm, 09/26/21 13:20:00 EDT,Height Start Date: 12/22/21 Status: Ordered Daliresp 500 mcg oral tablet 1 tablet, By Mouth, Daily, # 30 tablet, 6 Refills, [facility], 163, cm, 09/26/21 13:20:00 EDT,Height Start Date: 11/14/21 Status: Ordered docusate sodium 100 mg oral capsule 1 capsule, By Mouth, Daily, # 60 each, 5 Refills, Maintenance, 02/18/22 11:21:00 EDT, [facility], 163, cm, 12/29/21 9:41:00 EDT, [...] Gm, 0 Refills, Maintenance, 04/13/22 12:06:00 EST, [place], [place], [place] - [id number], Partial fill upon patient request if the prescription is for a schedule II opioid drug., 1 sprays Nares, Both... Start Date: 04/13/22 Stop Date: 05/13/22 Status: Ordered furosemide 40 mg oral tablet 1, tablet, By Mouth, 2 times a day, # 60 tablet, Refills 5, Maintenance, 03/20/22 11:36:00 EDT, Route to Pharmacy Electronically, [facility], 163, cm, 03/03/22 9:51:00 EDT, Height Start Date: 03/20/22 Status: Ordered guaiFENesin 100 mg/5 mL oral liquid 20 mL = 400 mg, By Mouth, 2 times a day, for congestion, cough. with fluids, # 240 mL, 0 Refills, Maintenance, 04/14/21 8:42:00 EST, [place], [place] - [id number], Partial fill upon patient request if the [...] 02/18/22 11:21:00 EDT, Route to Pharmacy Electronically, [facility], 163, cm, 12/29/21 9:41:00 EDT, [...] 04/24/22 20:55:00 EST, Route to Pharmacy Electronically, [facility], 163, cm, 04/13/22 11:52:00 EST, Height Start Date: 04/24/22 Status: Ordered magnesium gluconate 250 mg oral tablet 1 tablet = 250 mg, By Mouth, 2 times a day, # 60 tablet, 2 Refills, Maintenance, 04/27/22 11:27:00 EST, [facility] [place], [place] - [id number], Partial fill upon patient request if the [...] Start Date: 01/31/20 Status: Ordered Potassium Chloride (Ani-Royn-Qap M20) 20 mEq oral tablet, extended release [...] 0, Tot. Refills 0, Maintenance, Product number [id number] Dx codes: M54.2 Duration: lifetime, 02/27/21 19:03:00 EDT, Supply Start Date: 02/27/21 Status: Ordered Tessalon Perles 100 mg oral capsule 1 capsule = 100 mg, By Mouth, 3 times a day, PRN Cough, for 7 days, # 21 capsule, 0 Refills, Acute 06/09/22 16:55:00 EST, 06/02/22 16:55:00 EST, [facility] - [place], [place] - [id number], Partial fill upon patient request if the prescription is f... Start Date: 06/02/22 Stop Date: 06/09/22 Status: Ordered traZODone 150 mg oral tablet 3 tablet, By Mouth, Daily at bedtime, # 270 tablet, 6 Refills, [facility], 163, cm, 09/26/21 13:20:00 EDT, Height Start Date: 11/14/21 Status: Ordered value series power lift chair [id number] value series power lift chair [id number], See Instructions, # 1 each, Refills 0, Tot. Refills 0, Maintenance, Diagnosis codes: G89.29, M19.90, J44.9, Z74.09, 01/30/20 9:31:00 EDT, Supply Start Date: 01/30/20 Status: Ordered varenicline 1mg tablet 1 tablet, By Mouth, 2 times a day, # 56 tablet, 5 Refills, [facility], 163, cm, 09/26/21 13:20:00 EDT, Height Start Date: 12/22/21 Status: Ordered Ventolin HFA 108 mcg/inh inhalation aerosol with adapter 2 puffs, Inhalation, 4 times a day, PRN Wheezing/Shortness of Breath, 90 days supply, # 1 each, 5 Refills, Maintenance, 04/14/22 16:26:00 EST, [facility] [id number], 163, cm,04/13/22 11:52:00 EST, Height Start Date: 04/14/22 Status: Ordered Victoza 18 mg/3 mL subcutaneous solution = 1.2 mg, Subcutaneous Infusion, Daily, # 15 mL, 11 Refills, Maintenance, 06/02/22 16:53:00 EST, [facility] [id number], Partial fill upon patient request if the [...] 4, 5 Confirmed Active BHN/CCA/CP-Jo Ann Harvey [phone]/Health nursing home active care coordination Confirmed Active [...] Care Team Personnel Name: Kwame Bolton Position: [facility] PCO Associate Professional Member Role: PCP Address: Address: [address] [place] [address] [place] [address]- Name: Perri Perry RN Position: [facility] RN Member Role: Primary Care Nurse Name: Alicia Vallecillo RN Position: [facility] RN Member Role: Primary Care Nurse Name: Maureen Smiht RN Position: [facility] RN Member Role: Primary Care Nurse Name: Sultana Broussard RN Position: [facility] RN Member Role: Primary Care Nurse Name: Abigail Dior RN Position: [facility] RN Member Role: Primary Care Nurse Name: Ivette Carter RN Position: [facility] RN Member Role: Primary Care Nurse Name: Rukhsana Matthews RN Position: [facility] Hospital Line Camera Operator Member Role: Primary Care Nurse Care Team Related Persons Name: TANA MENDOZA Address: [place] [address] Name: MARIA TERESA UMAÑA Address: home [address] [place] [address] Name: ANG GAFFNEY Address: home [address] [place] [address] Name: CHILO AHMADI Address: home [address] [address]
--- OUTSIDE RECORDS SUMMARY | 2023-09-15 07:45 | XMS_ITS | Continuity of Care Document ---
Author Organization [facility] Address [address] [place] [address]- Care Team Providers Care Supervisor Dimension Warehouse Name Role Phone Kwame Bolton Primary Care Physician [facility]): [facility] - 09/14/19 [facility] [address] [place] [address]- [facility] Attending Physician: Kwame Bolton Allergies, [...] Vaccine (oldterm) 08/08/06 Given 1Result Comment: [02/22/2017] [facility] [id number] 2Admin Note: flulaval vis given vis date 11/16/2011 3Admin Note: VIS GIVEN VIS DATE 12/24/2009 4Admin Note: VIS GIVEN 12/25/08 [place] 5Result Comment: [01/03/2018 Uncharted] ERROR NOT GIVEN 6Result Comment: [id number] exp 06/2009 7Admin Note: vis given 8Admin [...] 08/16/19 15:54:00 EDT, Route to Pharmacy Electronically, [place], [place] -, 163, cm, 07/11/19 13:24:00 ESTWin... [...] 5 Refills, Maintenance, 08/16/19 15:52:00 EDT, [place], [place], [place] -, 1 puffs Inhalation Daily,Instr:[place] [facility] [...] Acute 02/12/20 15:52:00 EDT, 08/16/19 15:52:00 EDT, [place], [place] -, 163, cm, 07/11/19 13:24:00 EST,Height, 114, kg, 04/19/18 23:58:00 EST, Dry Weight Start Date: 08/16/19 Stop Date: 02/12/20 Status: Ordered clonazePAM 0.5 mg oral tablet 2 tablet = 1 mg, By Mouth, 2 times a day, dose increased to 2 tabs bid 05/2018, # 120 tablet, 2 Refills, Maintenance, 08/16/19 15:49:00 EDT, [place], [place] -, 163, cm, 07/11/19 13:24:00 EST, Height, 114, kg, 04/19/18 23:58:00 EST, D... Start Date: 08/16/19 Stop Date: 11/14/19 Status: Ordered Daliresp 500 mcg oral tablet See Instructions, 1 tablet By Mouth Daily, # 30 each, 6 Refills, Maintenance, 08/16/19 15:51:00 EDT, [place], [place] -, 163, cm, 07/11/19 13:24:00 EST, [...] Maintenance, 08/15/2014:51:00 EDT, Route to Pharmacy Electronically, [place], [place] -, 163, cm, 07/11/19 13:24:00 EST, [...] Gm, 5 Refills, Maintenance, 08/16/19 15:53:00 EDT, [place], [place] -, 1 sprays Nares, Both 2 times a day, 163, cm, 07/11/19 13:24:00 EST, Height, 114, kg, 04/19/18 23:58:00 EST, Dry Weight Start Date: 08/16/19 Status: Ordered furosemide 40 mg oral tablet 40 mg, 1, tablet, By Mouth, 2 times a day, # 60 tablet, Refills 5, Tot. Refills 5, Maintenance, 08/16/19 15:51:00 EDT, Route to Pharmacy Electronically, [place], [place] -, 163, cm, 07/11/19 13:24:00 EST, [...] 09/06/19 15:51:00 EDT, Route to Pharmacy Electronically, [facility] [place], [place] -, 163, cm, 07/11/19 13:24... Start [...] tablet, 5 Refills, Maintenance, 08/16/19 15:50:00 EDT, [place], [place] -, 163, cm, 07/11/19 13:24:00 EST, Height, 114, kg, 04/19/18 23:58:00EST, Dry Weight Start Date: 08/16/19 Status: Ordered tiZANidine 4 mg oral capsule 1 capsule = 4 mg, By Mouth, 3 times a day, use for severe muscle spasm, # 30 capsule, 3 Refills, Maintenance, 08/16/19 15:50:00 EDT, [place], [place] -, 163, cm, 07/11/19 13:24:00 EST, Height, 114, kg, 04/19/18 23:58:00 EST, Dry Weight Start Date: 08/16/19 Stop Date: 09/25/19 Status: Ordered tiZANidine 4 mg oral tablet 8 mg, 2, tablet, By Mouth, Every 8 hours, for shoulder pain, muscle spasm., # 84 tablet, Refills 2,Tot. Refills 2, Maintenance, 09/07/19 15:45:00 EDT, Route to Pharmacy Electronically, [place], [place] -, 163, cm, 07/11/19 13:24:00 E... Start Date: 09/07/19 Stop Date: 10/19/19 Status: Ordered traZODone 150 mg oral tablet 3 tablet = 450 mg, By Mouth, Daily at bedtime, Please d/c order for 300mg qhs. Correct dose 450mg qhs., # 90 tablet, 5 Refills, Maintenance, 08/16/19 15:52:00 EDT, [place], [place] -, 163, cm, 07/11/19 13:24:00 EST, Height, 114, kg, 1... Start Date: 08/16/19 Status: Ordered triamcinolone 0.025% topical cream 1 applicator, Topically, 3 times a day, PRN eczema, # 80 Gm, 2 Refills, Maintenance, 08/16/19 15:48:00 EDT, [place], [place] -, 1 applicator Topically 3 times a day,PRN:eczema, 163, cm, 07/11/19 13:24:00 EST, Height, 114, kg, 04/19/18... Start Date: 08/16/19 Status: Ordered Ventolin HFA 108 mcg/inh inhalation aerosol with adapter 2 puffs, Inhalation, 4 times a day, PRN Wheezing/Shortness of Breath, 90 days supply, # 1 each, 5 Refills, Maintenance, 08/16/19 15:53:00 EDT, [place], [place] -, 163, cm, 07/11/19 13:24:00 EST, Height, 114, kg, 04/19/18 23:58:00 EST,... Start Date: 08/16/19 Status: Ordered verapamil 40 mg oral tablet 1 tablet = 40 mg, By Mouth, 3 times a day, to prevent migraine, # 90 tablet, 2 Refills, Maintenance, 09/07/19 15:43:00 EDT, [place], [place] - , 163, cm, 07/11/19 13:24:00 EST, Height, 114, kg, 04/19/18 23:58:00 EST, Dry Weight Start Date: 09/07/19 Status: Ordered Vitamin D3 1000 intl units oral tablet 1 tablet = 1,000 International_Units, By Mouth, Daily, # 90 tablet, 3 Refills, Maintenance, 08/16/19 15:51:00 EDT, [place], [place] -, 163, cm, 07/11/19 13:24:00 EST, [...]
--- OUTSIDE RECORDS SUMMARY | 2023-09-15 07:45 | XMS_ITS | Continuity of Care Document ---
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 Role Phone Kwame Bolton Primary Care Physician [facility] 08[facility]13/23 - 09/12/23 [facility] [address] [place], [place] [phone] Allergies, Adverse Reactions, Alerts Substance Reaction Severity [...] vaccine, inactivated 5 02/26/09 Gi cecile SARS-CoV-2(COVID-19)mRNA-LNP vac([id number]) 02/25/23 Recorded SARS-CoV-2 (COVID-19) mRNA-1273 vaccine 6 [...] 1Result Comment: [02/16/2023] Given at [facility] Averecord can be obtained from [facility] 2Result Comment: [02/22/2017] [facility] [phone] 3Admin Note: flulaval vis given vis date 11/16/2011 4Admin Note: VIS GIVEN VIS DATE 12/24/2009 5Admin Note: VIS GIVEN 12/25/08 swedish 6Result Comment: new booster 7Result Comment: dose 2 8Result Comment: dose 1 9Result Comment: Received at [facility] on [facility] in [place] 10Admin Note: vis given 11Admin Note: vis given 12Result Comment: [id number] exp 06/2009 13Admin Note: vis given Medications [...] EST, Compound Start Date: 07/12/19 Status: Ordered [place] Saline 0.65% nasal gel 1 sprays, Nares, Both, 4 times a day, # 22.5 Gm, 1 Refills, Maintenance, 08/20/23 15:42:00 EDT, [facility] [id number], Partial fill upon patient request if the prescription is for a schedule II opioid drug., 1 sprays Nares, Kilo... Start Date: 08/20/23 Status: Ordered B-Complex with B-12 oral tablet See Instructions, TAKE 1 TABLET BY MOUTH ONCE DAILY WITH FOOD, # 90 tablet, 1 Refills, Maintenance,05/28/23 17:52:00 EST, [facility] [id number], 90, TAKE 1 TABLET BY MOUTH ONCE DAILY WITH FOOD, 163, cm, 05/06/23 8:47:00 EST,... Start Date: 05/28/23 Status: Ordered Biotene Moisturizing Mouth oral spray 1 sprays, By Mouth, 6 times a day, BIOTENE NAME BRAND MAY BE REQUIRED, # 240 mL, 5 Refills, Maintenance, 11/18/22 8:47:00 EDT, [facility] [id number], Partial fill upon patient request if the prescription is for a schedule II o... Start Date: 11/18/22 Status: Ordered Cane See Instructions, # 1 each, Maintenance, DX LEFT KNEE PAIN /ACL TEAR /ARTHRITIS DX CODE M25.562 HT 163 CM WT 123 KG DURATION -LIETIME PATIENTS CANE ASHUTOSH, 01/06/19 8:36:49 EDT, Compound Start Date: 01/06/19 Status: Ordered Comfort EZ Pen [place] 32 gauge x 5/32 Comfort EZ Pen [place] 32 gauge x 5/32 , See Instructions, [...] each, 5 Refills, Maintenance, 03/17/23 9:55:00 EDT, [facility] [id number], Partial fill upon patient request if the prescription is for a schedule II... Start Date: 03/17/23 Status: Ordered docusate sodium 100 mg oral capsule 1 capsule, By Mouth, 2 times a day, # 60 each, 5 Refills, Maintenance, 05/14/23 10:27:00 EST, [facility], 163, cm, 05/06/23 8:47:00 EST, Height, 122, kg, 05/02/22 15:20:00 EST, Dry Weight Start Date: 05/14/23 Status: Ordered Ear Pain MD 4% otic liquid 2 drops, Ears, Both, 3 times a day, PRN Pain , Moderate, # 12.5 mL, 0 Refills, Maintenance, 01/04/23 21:24:00 EDT, [facility] [id number], Partial fill upon patient request ifthe prescription [...] tablet, 5 Refills, Maintenance, 05/27/23 18:43:00 EST, [facility], 163, cm, 05/06/23 8:47:00 EST, Height, 122, kg, 05/02/22 15:20:00 EST, Dry Weight Start Date: 05/27/23 Status: Ordered fluticasone 50 mcg/inh nasal spray 1 sprays, Nares, Both, Daily, # 16 Gm, 2 Refills, Maintenance, 07/13/23 18:31:00 EST, [place], [place] - [id number], Partial fill upon patient request if the prescription is for a schedule II opioid drug., 1 sprays Nares, Both Daily,... Start Date: 07/13/23 Status: Ordered furosemide 40 mg oral tablet 1, tablet, By Mouth, 2 times a day, # 60 tablet, Refills 5, Maintenance, 04/13/23 13:49:00 EST, Route to Pharmacy Electronically, [facility], 163, cm, 04/12/23 8:10:00 EST, [...] tablet, 2 Refills, Maintenance, 02/15/23 18:46:00 EDT, [facility], 163, cm, 01/20/23 8:13:00 EDT, Height, 122, kg, 05/02/22 15:20:00 EST, Dry Weight Start Date: 02/15/23 Status: Ordered magnesium gluconate 250 mg oral tablet 1 tablet = 250 mg, By Mouth, 2 times a day, # 60 tablet, 2 Refills, Maintenance, 09/06/23 8:23:00 EDT, [facility] [id number], Partial fill upon patient request if the prescription is for a schedule II opioid drug., 1 tablet By... Start Date: 09/06/23 Status: Ordered MiraLax oral powder for reconstitution = 17 Gm, By Mouth, Daily, PRN Constipation, dissolve in 4 to 8 oz of beverage, # 30 each, 5 Refills, Maintenance, 09/06/23 8:24:00 EDT, [facility] [id number], Partial fill upon patient request if the prescription is for a sche... Start Date: 09/06/23 Status: Ordered Nicotrol Inhaler 10 mg inhalation device See Instructions, To use with nicotine cartridges in place of cigarettes, # 3 each, 0 Refills, Maintenance, 08/31/22 9:43:00 EDT, [facility] [id number], Partial fill upon patient request if the prescription is for a schedule I... Start Date: 08/31/22 Status: Ordered NO RINSE SHAMPOO CAP NO RINSE SHAMPOO CAP, See Instructions, # 15 each, Refills 11, Tot. Refills 11, Maintenance, DX: CHF WEAKNESS 150.9 R53.1, 11/28/18 9:21:33 EDT, Compound Start Date: 11/28/18 Status: Ordered NuLYTELY Lemon [place] oral powder for reconstitution See Instructions, Stay [...] 09/06/23 8:27:00 EDT, Route to Pharmacy Electronically, [facility], [place] -... Start Date: 09/06/23 Stop Date: 10/04/23 Status: Ordered Ozempic 2 mg/3 mL (0.25 mg or 0.5 mg dose) subcutaneous solution See Instructions, INJECT 0.5mg UNDER THE SKIN EVERY WEEK, # 3 mL, 5 Refills, Maintenance, 04/05/23 18:38:00 EST, [facility], 163, cm, 03/15/23 8:28:00 EDT, [...] Start Date: 01/31/20 Status: Ordered Potassium Chloride (Zgg-Toee-Fza M20) 20 mEq oral tablet, extended release 1 tablet, By Mouth, Daily, # 30 tablet, 2 Refills, Maintenance, 08/13/23 15:40:00 EDT, [facility] [id number], 163, cm, 08/13/23 13:24:00 EDT, Height, 122, kg, 05/02/22 15:20:00 EST, Dry Weight Start Date: 08/13/23 Status: Ordered pulse dose evaluation pulse dose evaluation, See Instructions, # 1 each, Refills 0, Tot. Refills 0, Maintenance, Pulse Dose Evaluation dx: copd,chf 150.9, j44.9, 01/31/20 16:26:00 EDT, Supply Start Date: 01/31/20 Status: Ordered Readi-Cat 2 Smoothie Banana 2% oral suspension See Instructions, As directed quality control technician to CT, # 900 mL, 0 Refills, Maintenance, 08/18/23 10:48:00 EDT, [facility] 3, Partial fill upon patient request if the prescription is for a scheduleII opioid drug., As directed quality control technician to CT, 163, cm... Start Date: 08/18/23 Status: Ordered Roflumilast 500 mcg oral tablet 1 tablet, By Mouth, Daily, # 30 tablet, 2 Refills, Maintenance, 08/13/23 15:40:00 EDT, [place], [place] - [id number], 163, cm, 08/13/23 13:24:00 EDT, Height, 122, [...] tablet, 5 Refills, Maintenance, 07/13/23 18:30:00 EST, [facility] [id number], please dispense in bubble pack. dose increase... Start Date: 07/13/23 Status: Ordered square orthopedic pillow with central square depression and surrounding bolster square orthopedic pillow with central square depression and surrounding bolster, See Instructions, # 1 each, Refills 0, Tot. Refills 0, Maintenance, Product number [id number] Dx codes: M54.2 Duration: lifetime, 09/07/23 8:13:00 EDT, Supply Start Date: 09/07/23 Status: Ordered traZODone 150 mg oral tablet 3 tablet, By Mouth, Daily at bedtime, # 270 tablet, 6 Refills, 10/26/22 10:18:00 EDT, [facility] [id number], 163, cm, 10/14/22 8:43:00 EDT, Height, 122, [...] Status: Ordered value series power lift chair [id number] value series power lift chair [id number], See Instructions, # 1 each, Refills 0, [...] Pelvic pain Confirmed Active BHN/CCA/CP-Jo Ann Harvey [phone]/[facility] active care coordination Confirmed Active BHN/CCA/LCC Lisa Gutierrez [phone]/[facility] active care coordination Confirmed Active Severe [...] Care Team Personnel Name: Kwame Bolton Position: [facility] PCO Associate Professional Member Role: PCP Address: Address: [address] [place] [address] [place] [address]- Name: Perri Perry RN Position: [facility] RN Member Role: Primary Care Nurse Name: Alicia Vallecillo RN Position: [facility] RN Member Role: Primary Care Nurse Name: Андрей Boo RN Position: [facility] Outreach Member Role: Primary Care Nurse Name: Maureen Smith RN Position: [facility] RN Member Role: Primary Care Nurse Name: Sultana Broussard RN Position: [facility] RN Member Role: Primary Care Nurse Name: Abigail Dior RN Position: [facility] RN Member Role: Primary Care Nurse Name: Ivette Carter RN Position: [facility] RN Member Role: Primary Care Nurse Name: Rukhsana Matthews RN Position: [facility] Hospital Pilot Member Role: Primary Care Nurse Care Team Related Persons Name: TANA MENDOZA Address: home UNKNOWN CALL FIRST [facility] [place] [address] Name: MARIA TERESA UMAÑA Address: home [address] [place] [address] Name: ANG GAFFNEY Address: home [address] [place] [address] Name: CHILO AHMADI Address: home [address] [address]
--- OUTSIDE RECORDS SUMMARY | 2023-09-15 07:45 | XMS_ITS | Continuity of Care Document ---
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 Name Role Phone Kwame Bolton Primary Care Physician [phone] [facility]counter [facility] Date[facility] 06[facility]14[facility]23 - 07/14/23 [facility] [address] [place] [address]- Allergies, Adverse Reactions, Alerts Substance Reaction Severity [...] vaccine, inactivated 5 02/26/09 Gi cecile SARS-CoV-2(COVID-19)mRNA-LNP vac([id number]) 02/25/23 Recorded SARS-CoV-2 (COVID-19) mRNA-1273 vaccine 6 [...] 1Result Comment: [02/16/2023] Given at [facility] [place] can be obtained from [facility] 2Result Comment: [02/22/2017] [facility] [phone] 3Admin Note: flulaval vis given vis date 11/16/2011 4Admin Note: VIS GIVEN VIS DATE 12/24/2009 5Admin Note: VIS GIVEN 12/25/08 sudanese 6Result Comment: new booster 7Result Comment: dose 2 8Result Comment: dose 1 9Result Comment: Received at [facility] on [facility] in [place] 10Admin Note: vis given 11Admin Note: vis given 12Result Comment: [id number] exp 06/2009 13Admin Note: vis given Medications [...] EST, Compound Start Date: 07/12/19 Status: Ordered [place] Saline 0.65% nasal gel 1 sprays, Nares, Both, 4 times a day, # 22.5 Gm, 1 Refills, Maintenance, 04/12/23 8:20:00 EST, [facility] [id number], Partial fill upon patient request if the prescription isfor a schedule II opioid drug., 1 sprays Nares, Bot... Start Date: 04/12/23 Status: Ordered Azithromycin 5 Day Dose Pack 250 mg oral tablet See Instructions, as directed on package labeling, # 6 each, 0 Refills, Maintenance, 01/05/23 14:03:00 EDT, [facility] [id number], Partial fill upon patient request if the prescription is for a schedule II opioid drug., 163, c... Start Date: 01/05/23 Status: Ordered B-Complex with B-12 oral tablet See Instructions, TAKE 1 TABLET BY MOUTH ONCE DAILY WITH FOOD, # 90 tablet, 1 Refills, Maintenance,05/28/23 17:52:00 EST, [facility] [id number], 90, TAKE 1 TABLET BY MOUTH ONCE DAILY WITH FOOD, 163, cm, 05/06/23 8:47:00 EST,... Start Date: 05/28/23 Status: Ordered Biotene Moisturizing Mouth oral spray 1 sprays, By Mouth, 6 times a day, BIOTENE NAME BRAND MAY BE REQUIRED, # 240 mL, 5 Refills, Maintenance, 11/18/22 8:47:00 EDT, [facility] [id number], Partial fill upon patient request if the prescription is for a schedule II o... Start Date: 11/18/22 Status: Ordered Cane See Instructions, # 1 each, Maintenance, DX LEFT KNEE PAIN /ACL TEAR /ARTHRITIS DX CODE M25.562 HT 163 CM WT 123 KG DURATION -LIETIME PATIENTS VERA BOYKIN, 01/06/19 8:36:49 EDT, Compound Start Date: 01/06/19 Status: Ordered Comfort EZ Pen [place] 32 gauge x 5/32 Comfort EZ Pen [place] 32 gauge x 5/32 , See Instructions, # 50 Unknown, 11 Refills, USE DAILY WITHvictoza injection, 163, cm, 03/25/21 9:16:00 EST, Height Start Date: 04/01/21 Status: Ordered Comfort EZ Pen [place] 32 gauge x 5/32 Comfort EZ Pen [place] 32 gauge x 5/32 , See Instructions, # 50 Unknown, 0 Refills, USE DAILY WITH victoza injection, 163, cm, 12/18/20 9:01:00 EDT, Height Start Date: 02/05/21 Status: Ordered Comfort EZ Pen [place] 32 gauge x 5/32 Comfort EZ Pen [place] 32 gauge x 5/32 , See Instructions, [...] each, 5 Refills, Maintenance, 03/17/23 9:55:00 EDT, [place], [place] - [id number], Partial fill upon patient request if the prescription is for a schedule II... Start Date: 03/17/23 Status: Ordered docusate sodium 100 mg oral capsule 1 capsule, By Mouth, 2 times a day, # 60 each, 5 Refills, Maintenance, 05/14/23 10:27:00 EST, [facility], 163, cm, 05/06/23 8:47:00 EST, Height, 122, kg, 05/02/22 15:20:00 EST, Dry Weight Start Date: 05/14/23 Status: Ordered Ear Pain MD 4% otic liquid 2 drops, Ears, Both, 3 times a day, PRN Pain , Moderate, # 12.5 mL, 0 Refills, Maintenance, 01/04/23 21:24:00 EDT, [place], [place] - [id number], Partial fill upon patient request ifthe prescription [...] tablet, 5 Refills, Maintenance, 05/27/23 18:43:00 EST, [facility], 163, cm, 05/06/23 8:47:00 EST, Height, 122, kg, 05/02/22 15:20:00 EST, Dry Weight Start Date: 05/27/23 Status: Ordered fluticasone 50 mcg/inh nasal spray 1 sprays, Nares, Both, Daily, # 16 Gm, 2 Refills, Maintenance, 07/13/23 18:31:00 EST, [place], [place] - [id number], Partial fill upon patient request if the prescription is for a schedule II opioid drug., 1 sprays Nares, Both Daily,... Start Date: 07/13/23 Status: Ordered furosemide 40 mg oral tablet 1, tablet, By Mouth, 2 times a day, # 60 tablet, Refills 5, Maintenance, 04/13/23 13:49:00 EST, Route to Pharmacy Electronically, [facility], 163, cm, 04/12/23 8:10:00 EST, Height, [...] 06/14/23 8:55:00 EST, Route to Pharmacy Electronically, [facility], 163, cm, 05/06/23 8:47:00 [...] 02/10/23 10:21:00 EDT, Route to Pharmacy Electronically, [facility], 163, cm, 01/20/23 8:13:00 EDT, Height, 122, kg, 05/02/22 15:20:00 EST, Dry Weight Start Date: 02/10/23 Status: Ordered Mag-G 500 mg oral tablet 0.5 tablet, By Mouth, 2 times a day, # 30 tablet, 2 Refills, Maintenance, 02/15/23 18:46:00 EDT, [facility], 163, cm, 01/20/23 8:13:00 EDT, Height, 122, kg, 05/02/22 15:20:00 EST, Dry Weight Start Date: 02/15/23 Status: Ordered Nicotrol Inhaler 10 mg inhalation device See Instructions, To use with nicotine cartridges in place of cigarettes, # 3 each, 0 Refills, Maintenance, 08/31/22 9:43:00 EDT, [place], [place] - [id number], Partial fill upon patient request if the [...] Start Date: 01/31/20 Status: Ordered Potassium Chloride (Hcx-Gvxw-Sro M20) 20 mEq oral tablet, extended release [...] tablet, 6 Refills, Maintenance, 01/13/23 15:35:00 EDT, [facility], 163, cm, 12/22/22 8:54:00 [...] tablet, 5 Refills, Maintenance, 07/13/23 18:30:00 EST, [place], [place] - [id number], please dispense in bubble pack. dose increase... Start Date: 07/13/23 Status: Ordered square orthopedic pillow with central square depression and surrounding bolster square orthopedic pillow with central square depression and surrounding bolster, See Instructions, # 1 each, Refills 0, Tot. Refills 0, Maintenance, Product number [id number] Dx codes: M54.2 Duration: lifetime, 07/21/22 14:25:00 EST, Supply Start Date: 07/21/22 Status: Ordered traZODone 150 mg oral tablet 3 tablet, By Mouth, Daily at bedtime, # 270 tablet, 6 Refills, 10/26/22 10:18:00 EDT, [place], [place] - [id number], 163, cm, 10/14/22 8:43:00 EDT, Height, 122, kg, 05/02/22 15:20:00EST, Dry Weight Start Date: 10/26/22 Status: Ordered Trelegy Ellipta 200 mcg-62.5 mcg-25 mcg/inh inhalation powder 1 puffs, Inhalation, Daily, at the same time every day, # 9 each, 3 Refills, Maintenance, 08/31/22 9:41:00 EDT, Powder, [place], [place] - [id number], Partial fill upon patient request if the prescription is for a schedule II opioid d... Start Date: 08/31/22 Status: Ordered value series power lift chair [id number] value series power lift chair [id number], See Instructions, # 1 each, Refills 0, Tot. Refills 0, Maintenance, Diagnosis codes: G89.29, M19.90, J44.9, Z74.09, 01/30/20 9:31:00 EDT, Supply Start Date: 01/30/20 Status: Ordered Ventolin HFA 108 mcg/inh inhalation aerosol with adapter 2 puffs, Inhalation, 4 times a day, PRN NEEDED FOR SHORTNESS OF BREATH OR FOR WHEEZING, # 18 Gm,5 Refills, Maintenance, 04/13/23 13:49:00 EST, [facility], 163, cm, 04/12/23 8:10:00 [...] 4, 5 Confirmed Active BHN/CCA/CP-Jo Ann Harvey [phone]/[facility] active care coordination Confirmed Active BHN/CCA/LCC Lisa Kitchenquillo [phone]/[facility] active care coordination Confirmed Active Severe [...] Care Team Personnel Name: Kwame Bolton Position: [facility] PCO Associate Professional Member Role: PCP Address: Address: [address] [place] [address] [place] [address]- Name: Perri Perry RN Position: [facility] RN Member Role: Primary Care Nurse Name: Alicia Vallecillo RN Position: [facility] RN Member Role: Primary Care Nurse Name: Maureen Smith RN Position: [facility] RN Member Role: Primary Care Nurse Name: Sultana Broussard RN Position: [facility] RN Member Role: Primary Care Nurse Name: Abigail Dior RN Position: [facility] RN Member Role: Primary Care Nurse Name: Ivette Carter RN Position: [facility] RN Member Role: Primary Care Nurse Name: Rukhsana Matthews RN Position: [facility] Hospital [employer] Member Role: Primary Care Nurse Care Team Related Persons Name: TANA MENDOZA Address: [place] [address] Name: MARIA TERESA UMAÑA Address: home [address] [place] [id number] Name: ANG GAFFNEY Address: home [address] [place] [address] Name: CHILO AHMADI Address: home [address] [address]
--- OUTSIDE RECORDS SUMMARY | 2023-09-15 07:45 | XMS_ITS | Continuity of Care Document ---
Author Organization [facility] Address [address] [place] [id number]- Care Team Providers Care Contract Mail Carrier Name Role Phone Kwame Bolton Primary Care Physician Encounter [facility] Date(s): 07/16/20 - 08/25/20 [facility] [address] [place] [id number] Attending Physician: Grecia Lima MD Admitting Physician: Grecia Lima MD Allergies, Adverse Reactions, Alerts Substance Reaction [...] 08/08/06 Given 1Result Comment: Received at [facility] on [facility] in [place] 2Admin Note: vis given 3Admin Note: vis given 4Result Comment: [02/22/2017] [facility] [id number] 5Admin Note: flulaval vis given vis date 11/16/2011 6Admin Note: VIS GIVEN VIS DATE 12/24/2009 7Admin Note: VIS GIVEN 12/25/08 ugandan 8Result Comment: [01/03/2018 Uncharted] ERROR NOT GIVEN 9Result Comment: [id number] exp 06/2009 10Admin Note: vis given Medications [...] each, 5 Refills, Maintenance, 06/11/20 11:38:00 EST, [facility] - [place], [place] - [id number], 1 sprays By Mouth 6 times a day,Instr:please dispense 2 bottles per month... Start Date: 06/11/20 Status: Ordered Breo Ellipta 200 mcg-25 mcg/inh inhalation powder See Instructions, INHALE 1 PUFF BY MOUTH INTO THE lungs DAILY. rinse mouth and throat after use, # 60 Unknown, 11 Refills, 03/27/20 10:56:00 EST, [facility] [id number], 30, INHALE 1 PUFF BY MOUTH INTO [...] tablet, 0 Refills, Acute, 08/06/20 10:14:00 EDT, [facility], 163, cm, 07/31/20 13:11:00 EDT, Height Start Date: 08/06/20 Status: Ordered clonazePAM 0.5 mg oral tablet 2 tablet = 1 mg, By Mouth, 2 times a day, # 120 tablet, 2 Refills, Maintenance, 07/09/20 16:30:00 EST, [place], [place] - [id number], 163, cm, 07/08/20 9:27:00 EST, Height Start Date: 07/09/20 Stop Date: 10/07/20 Status: Ordered Daliresp 500 mcg oral tablet See Instructions, TAKE ONE TABLET BY MOUTH DAILY, # 30 tablet, 6 Refills, Maintenance, [facility], 163, cm, 03/05/20 13:58:00 EDT, Height, [...] 12/15/19 10:10:00 EDT, Route to Pharmacy Electronically, [facility] [id number], 163, cm, 07/11/19 13:24:00 EST, Height, 114, kg... Start Date: 12/15/19 Status: Ordered docusate sodium 100 mg oral capsule See Instructions, TAKE ONE CAPSULE BY MOUTH 2 (two) times a day, # 60 capsule, 5 Refills, 03/27/20 10:56:00 EST, [facility] [id number], 163, cm, 03/05/20 13:58:00 EDT, Height, 114, [...] Gm, 5 Refills, Maintenance, 08/16/19 15:53:00 EDT, [place], [place] -, 1 sprays Nares, Both 2 times a day, 163, cm, 07/11/19 13:24:00 EST, Height, 114, kg, 04/19/18 23:58:00 EST, Dry Weight Start Date: 08/16/19 Status: Ordered furosemide 40 mg oral tablet 40 mg, 1, tablet, By Mouth, 2 times a day, # 60 tablet, Refills 5, Tot. Refills 5, Maintenance, 08/05/20 13:27:00 EDT, Route to Pharmacy Electronically, [facility] [id number], 163, cm, 07/31/20 13:11:00 EDT, Height Start [...] 05/13/20 8:59:00 EST, Route to Pharmacy Electronically, [facility], 163, cm, 03/05/20 13:58:00 EDT, [...] 15:46:00 EDT, Route to Pharmacy Electronically, [facility]/pharmacy #[id number], 163, cm, 07/11/19 13:24:00 EST, [...] Refills, Maintenance, 07/08/20 10:14:00 EST, CR Capsule, [facility] - [place], [place] - [id number], Partial fill upon patient request if the [...] 08/06/20 10:14:00 EDT, Route to Pharmacy Electronically, [facility], 163, cm, 07/31/20 13:11:00 EDT, Height [...] tablet, 5 Refills, Maintenance, 05/13/20 8:59:00 EST, [facility], 163, cm, 03/05/20 13:58:00 EDT, [...] Refills, Soft Stop, 01/17/20 11:40:00 EDT, Powder, [facility]/pharmacy #[id number], 0.5 mL Intramuscular Once,Instr:repeat dose in 2 to 6 months, 163, cm, 07/11/19 13:24:00 EST, Height, 114,... Start Date: 01/17/20 Status: Ordered traZODone 150 mg oral tablet 3 tablet = 450 mg, By Mouth, Daily at bedtime, Please d/c order for 300mg qhs. Correct dose 450mg qhs., # 90 tablet, 5 Refills, Maintenance, 03/27/20 10:57:00 EST, [place], [place] -[id number], 163, cm, 03/05/20 13:58:00 EDT, Height,... Start Date: 03/27/20 Status: Ordered triamcinolone 0.025% topical cream 1 applicator, Topically, 3 times a day, PRN eczema, # 80 Gm, 2 Refills, Maintenance, 08/16/19 15:48:00 EDT, [place], [place] -, 1 applicator Topically 3 times a day,PRN:eczema, 163, cm, 07/11/19 13:24:00 EST, Height, 114, kg, 04/19/18... Start Date: 08/16/19 Status: Ordered value series power lift chair [id number] value series power lift chair [id number], See Instructions, # 1 each, Refills 0, Tot. Refills 0, Maintenance, Diagnosis codes: G89.29, M19.90, J44.9, Z74.09, 01/30/20 9:31:00 EDT, Supply Start Date: 01/30/20 Status: Ordered Ventolin HFA 108 mcg/inh inhalation aerosol with adapter 2 puffs, Inhalation, 4 times a day, PRN Wheezing/Shortness of Breath, 90 days supply, # 1 each, 5 Refills, Maintenance, 04/15/20 17:48:00 EST, [facility] [id number], 163, cm,03/05/20 13:58:00 EDT, Height, 114, kg, 04/19/18 23... Start Date: 04/15/20 Status: Ordered verapamil 120 mg oral tablet 1 tablet, By Mouth, 3 times a day, home delivery please., # 90 tablet, 5 Refills, Maintenance, 05/21/20 11:21:00 EST, [facility], [place] - [id number], 163, cm, 03/05/20 13:58:00 EDT, Height Start Date: 05/21/20 Status: Ordered Vitamin D3 1000 intl units oral tablet 1 tablet = 1,000 International_Units, By Mouth, Daily, # 90 tablet, 1 Refills, Maintenance, 08/10/20 15:51:00 EDT, [facility] [id number], 163, cm, 07/31/20 13:11:00 EDT, Height Start [...] apnea(Confirmed) 4, 5 Active BHN/CCA/CP-Jo Ann Harvey [phone]/[facility] active care coordination(Confirmed) Active 1Health Care Agent: Fatmata Powell, 2along with endo cervical curettage 3bilateral [...]
--- OUTSIDE RECORDS SUMMARY | 2023-09-15 07:45 | XMS_ITS | Continuity of Care Document ---
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 Name Role Phone Kwame Bolton Primary Care Physician [phone] Encounter [facility] Date(s): 07/13/23 - 08/12/23 [facility] [address] [place], [place] [phone] Allergies, Adverse Reactions, Alerts Substance Reaction Severity [...] vaccine, inactivated 5 02/26/09 Gi cecile SARS-CoV-2(COVID-19)mRNA-LNP vac([id number]) 02/25/23 Recorded SARS-CoV-2 (COVID-19) mRNA-1273 vaccine 6 [...] 1Result Comment: [02/16/2023] Given at [facility] Averecord can be obtained from [facility] 2Result Comment: [02/22/2017] [facility] [id number] 3Admin Note: flulaval vis given vis date 11/16/2011 4Admin Note: VIS GIVEN VIS DATE 12/24/2009 5Admin Note: VIS GIVEN 12/25/08 wolof 6Result Comment: new booster 7Result Comment: dose 2 8Result Comment: dose 1 9Result Comment: Received at [facility] on [facility] in [place] 10Admin Note: vis given 11Admin Note: vis given 12Result Comment: [id number] exp 06/2009 13Admin Note: vis given Medications [...] EST, Compound Start Date: 07/12/19 Status: Ordered [place] Saline 0.65% nasal gel 1 sprays, Nares, Both, 4 times a day, # 22.5 Gm, 1 Refills, Maintenance, 04/12/23 8:20:00 EST, [facility] [id number], Partial fill upon patient request if the prescription isfor a schedule II opioid drug., 1 sprays Nares, Bot... Start Date: 04/12/23 Status: Ordered B-Complex with B-12 oral tablet See Instructions, TAKE 1 TABLET BY MOUTH ONCE DAILY WITH FOOD, # 90 tablet, 1 Refills, Maintenance,05/28/23 17:52:00 EST, [facility] [id number], 90, TAKE 1 TABLET BY MOUTH ONCE DAILY WITH FOOD, 163, cm, 05/06/23 8:47:00 EST,... Start Date: 05/28/23 Status: Ordered Biotene Moisturizing Mouth oral spray 1 sprays, By Mouth, 6 times a day, BIOTENE NAME BRAND MAY BE REQUIRED, # 240 mL, 5 Refills, Maintenance, 11/18/22 8:47:00 EDT, [facility] [id number], Partial fill upon patient request if the prescription is for a schedule II o... Start Date: 11/18/22 Status: Ordered Cane See Instructions, # 1 each, Maintenance, DX LEFT KNEE PAIN /ACL TEAR /ARTHRITIS DX CODE M25.562 HT 163 CM WT 123 KG DURATION -LIETIME PATIENTS CANE ASHUTOSH, 01/06/19 8:36:49 EDT, Compound Start Date: 01/06/19 Status: Ordered Comfort EZ Pen [place] 32 gauge x 5/32 Comfort EZ Pen [place] 32 gauge x 5/32 , See Instructions, [...] 9:55:00 EDT, [facility] [id number], Partial fill upon patient request if the prescription is for a schedule II... Start Date: 03/17/23 Status: Ordered docusate sodium 100 mg oral capsule 1 capsule, By Mouth, 2 times a day, # 60 each, 5 Refills, Maintenance, 05/14/23 10:27:00 EST, [facility], 163, cm, 05/06/23 8:47:00 EST, Height, 122, kg, 05/02/22 15:20:00 EST, Dry Weight Start Date: 05/14/23 Status: Ordered Ear Pain MD 4% otic liquid 2 drops, Ears, Both, 3 times a day, PRN Pain , Moderate, # 12.5 mL, 0 Refills, Maintenance, 01/04/23 21:24:00 EDT, [facility] [id number], Partial fill upon patient request ifthe prescription [...] tablet, 5 Refills, Maintenance, 05/27/23 18:43:00 EST, [facility], 163, cm, 05/06/23 8:47:00 EST, Height, 122, kg, 05/02/22 15:20:00 EST, Dry Weight Start Date: 05/27/23 Status: Ordered fluticasone 50 mcg/inh nasal spray 1 sprays, Nares, Both, Daily, # 16 Gm, 2 Refills, Maintenance, 07/13/23 18:31:00 EST, [place], [place] - [id number], Partial fill upon patient request if the prescription is for a schedule II opioid drug., 1 sprays Nares, Both Daily,... Start Date: 07/13/23 Status: Ordered furosemide 40 mg oral tablet 1, tablet, By Mouth, 2 times a day, # 60 tablet, Refills 5, Maintenance, 04/13/23 13:49:00 EST, Route to Pharmacy Electronically, [facility], 163, cm, 04/12/23 8:10:00 EST, [...] 08/09/23 13:18:00 EDT, Route to Pharmacy Electronically, [facility], 163, cm, 05/06/23 8:47:00 EST, Height, 122, kg, 05/02/22 15:20:00 EST, Dry Weight Start Date: 08/09/23 Status: Ordered Mag-G 500 mg oral tablet 0.5 tablet, By Mouth, 2 times a day, # 30 tablet, 2 Refills, Maintenance, 02/15/23 18:46:00 EDT, [facility], 163, cm, 01/20/23 8:13:00 EDT, Height, 122, kg, 05/02/22 15:20:00 EST, Dry Weight Start Date: 02/15/23 Status: Ordered Nicotrol Inhaler 10 mg inhalation device See Instructions, To use with nicotine cartridges in place of cigarettes, # 3 each, 0 Refills, Maintenance, 08/31/22 9:43:00 EDT, [facility] - [place], [place] - [id number], Partial fill upon patient request if the [...] Start Date: 01/31/20 Status: Ordered Potassium Chloride (Rih-Gzxc-Sxz M20) 20 mEq oral tablet, extended release [...] tablet, 5 Refills, Maintenance, 07/13/23 18:30:00 EST, [facility] [id number], please dispense in bubble pack. dose increase... Start Date: 07/13/23 Status: Ordered square orthopedic pillow with central square depression and surrounding bolster square orthopedic pillow with central square depression and surrounding bolster, See Instructions, # 1 each, Refills 0, Tot. Refills 0, Maintenance, Product number [id number] Dx codes: M54.2 Duration: lifetime, 07/21/22 14:25:00 EST, Supply Start Date: 07/21/22 Status: Ordered traZODone 150 mg oral tablet 3 tablet, By Mouth, Daily at bedtime, # 270 tablet, 6 Refills, 10/26/22 10:18:00 EDT, [facility] [id number], 163, cm, 10/14/22 8:43:00 EDT, Height, 122, kg, 05/02/22 15:20:00EST, Dry Weight Start Date: 10/26/22 Status: Ordered Trelegy Ellipta 200 mcg-62.5 mcg-25 mcg/inh inhalation powder 1 puffs, Inhalation, Daily, at the same time every day, # 9 each, 3 Refills, Maintenance, 08/31/22 9:41:00 EDT, Powder, [facility] - [place], [place] - [id number], Partial fill upon patient request if the prescription is for a schedule II opioid d... Start Date: 08/31/22 Status: Ordered value series power lift chair [id number] value series power lift chair [id number], See Instructions, # 1 each, Refills 0, [...] 4, 5 Confirmed Active BHN/CCA/CP-Jo Ann Harvey [phone]/Health [facility] active care coordination Confirmed Active BHN/CCA/LCC Lisa Gutierrez [phone]/Health [facility] active care coordination Confirmed Active Severe [...] Care Team Personnel Name: Kwame Bolton Position: [facility] PCO Associate Professional Member Role: PCP Address: Address: [address] [place] [address] [place] [address]- Name: Perri Perry RN Position: [facility] RN Member Role: Primary Care Nurse Name: Alicia Vallecillo RN Position: [facility] RN Member Role: Primary Care Nurse Name: Андрей Boo RN Position: [facility] Outreach Member Role: Primary Care Nurse Name: Maureen Smith RN Position: [facility] RN Member Role: Primary Care Nurse Name: Sultana Broussard RN Position: [facility] RN Member Role: Primary Care Nurse Name: Abigail Dior RN Position: [facility] RN Member Role: Primary Care Nurse Name: Ivette Carter RN Position: [facility] RN Member Role: Primary Care Nurse Name: Rukhsana Matthews RN Position: [facility] Hospital Outdoor Illuminating Engineer Member Role: Primary Care Nurse Care Team Related Persons Name: TANA MENDOZA Address: [place] [address] Name: MARIA TERESA UMAÑA Address: home [address] [place] [address] Name: ANG GAFFNEY Address: home [address] [place] [address] Name: CHILO AHMADI Address: home [address] [facility] [facility] [place] [address]
--- OUTSIDE RECORDS SUMMARY | 2023-09-15 07:45 | XMS_ITS | Continuity of Care Document ---
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 in [place] 4Admin Note: vis given 5Admin Note: vis given 6Result Comment: [02/22/2017] [facility] [id number] 7Admin Note: flulaval vis given vis date 11/16/2011 8Admin Note: VIS GIVEN VIS DATE 12/24/2009 9Admin Note: VIS GIVEN 12/25/08 italian 10Result Comment: [01/03/2018 Uncharted] ERROR NOT GIVEN 11Result Comment: [id number] exp 06/2009 12Admin Note: vis given Medications [...] EST, Compound Start Date: 07/12/19 Status: Ordered [place] Saline 0.65% nasal solution See Instructions, use twice a day to rinse the nasal passages., # 120 mL, 1 Refills, Maintenance, 10/16/20 11:31:00 EDT, [facility] - [place], [place] - [id number], Partial fill upon patient request if the prescription is for a schedule II opioid... Start Date: 10/16/20 Status: Ordered Biotene Moisturizing Mouth oral spray 1 sprays, By Mouth, 6 times a day, please dispense 2 bottles per month., # 2 each, 5 Refills, Maintenance, 06/11/20 11:38:00 EST, [facility], [facility] [id number], 1 sprays By Mouth 6 times a day,Instr:please dispense 2 bottles per month... Start Date: 06/11/20 Status: Ordered Breo Ellipta 200 mcg-25 mcg/inh inhalation powder See Instructions, INHALE 1 PUFF BY MOUTH INTO THE lungs DAILY. rinse mouth and throat after use, # 60 Unknown, 11 Refills, 03/27/20 10:56:00 EST, [facility], [facility] [id number], 30, INHALE 1 PUFF BY MOUTH INTO [...] tablet, 2 Refills, Maintenance, 12/18/20 10:24:00 EDT, [facility], [facility] [id number], 163, cm, 12/18/20 9:01:00 EDT, Height Start Date: 12/18/20 Status: Ordered clonazePAM 0.5 mg oral tablet 2 tablet = 1 mg, By Mouth, 2 times a day, # 120 tablet, 2 Refills, Maintenance, 01/09/21 15:14:00 EDT, [facility] [id number], 163, cm, 12/18/20 9:01:00 EDT, Height Start Date: 01/09/21 Stop Date: 04/09/21 Status: Ordered Daliresp 500 mcg oral tablet 1 tablet, By Mouth, Daily, # 30 tablet, 6 Refills, Maintenance, 10/07/20 18:44:00 EDT, [facility], 163, cm, 09/24/20 13:25:00 EDT, Height Start [...] each, 5 Refills, Maintenance, 11/04/20 10:05:00 EDT, [facility] [id number], 163, cm, 10/16/20 10:59:00 EDT, Height Start [...] Gm, 2 Refills, Maintenance, 09/24/20 14:53:00 EDT, [facility] [id number], 1 sprays Nares, Both 2 times a day, 163, cm, 09/24/20 13:25:00 EDT, Height Start Date: 09/24/20 Status: Ordered furosemide 40 mg oral tablet 40 mg, 1, tablet, By Mouth, 2 times a day, # 60 tablet, Refills 5, Tot. Refills 5, Maintenance, 08/05/20 13:27:00 EDT, Route to Pharmacy Electronically, [facility] [id number], 163, cm, 07/31/20 13:11:00 EDT, Height Start [...] FOR SEVERE PAIN, Route to Pharmacy Electronically, [facility], 163, cm, 12/18/20 9:01:00 EDT, Height Start [...] 09/24/20 14:52:00 EDT, Route to Pharmacy Electronically, [facility] - [place], [place] - [id number], Partial fill upon patient request if the [...] Refills, Maintenance, 11/14/20 12:14:00 EDT, CR Capsule, [facility] - [place], [place] - [id number], Partial fill upon patient request if the [...] 11/04/20 12:42:00 EDT, Route to Pharmacy Electronically, [facility], 163, cm, 10/16/20 10:59:00 EDT, Height Start Date: 11/04/20 Status: Ordered portable oxygen concentrator portable oxygen concentrator, See Instructions, # 1 each, Refills 0, Tot. Refills 0, Maintenance, Dx severe COPD. Codes J44.9, R09.02, 01/31/20 16:26:00 EDT, Compound Start Date: 01/31/20 Status: Ordered Potassium Chloride (Gjz-Iewd-Xwf M20) 20 mEq oral tablet, extended release 1 tablet, By Mouth, Daily, # 30 tablet, 5 Refills, Maintenance, 11/04/20 12:42:00 EDT, [facility], 163, cm, 10/16/20 10:59:00 EDT, [...] each, 0 Refills, Maintenance, 08/29/20 19:11:00 EDT, [facility] [id number], Partial fill upon patient request if the prescription... Start Date: 08/29/20 Status: Ordered sertraline 50 mg oral tablet 1 tablet = 50 mg, By Mouth, Daily, please d/c 25mg tablet., # 30 tablet, 5 Refills, Maintenance, 09/24/20 14:52:00 EDT, [facility] [id number], Partial fill upon patient request if the prescription is for a schedule II opioid d... Start Date: 09/24/20 Status: Ordered Shingrix intramuscular injection = 0.5 mL, Intramuscular, Once, repeat dose in 2 to 6 months, # 2 each, 0 Refills, Soft Stop, 01/17/20 11:40:00 EDT, Powder, [facility]/pharmacy #[id number], 0.5 mL Intramuscular Once,Instr:repeat dose in 2 to 6 months, 163, cm, 07/11/19 13:24:00 EST, Height, 114,... Start Date: 01/17/20 Status: Ordered traZODone 150 mg oral tablet See Instructions, TAKE 3 TABLETS BY MOUTH AT BEDTIME, # 90 tablet, 0 Refills, [facility], 163,cm, 12/18/20 9:01:00 EDT, Height Start Date: 01/09/21 Status: Ordered traZODone 150 mg oral tablet 3 tablet, By Mouth, Daily at bedtime, # 90 tablet, 0 Refills, Maintenance, 12/03/20 15:05:00 EDT, [facility], 163, cm, 10/16/20 10:59:00 EDT, Height Start Date: 12/03/20 Status: Ordered triamcinolone 0.025% topical cream 1 applicator, Topically, 3 times a day, PRN eczema, # 80 Gm, 2 Refills, Maintenance, 08/16/19 15:48:00 EDT, [place], [place] -, 1 applicator Topically 3 times a day,PRN:eczema, 163, cm, 07/11/19 13:24:00 EST, Height, 114, kg, 04/19/18... Start Date: 08/16/19 Status: Ordered value series power lift chair [id number] value series power lift chair [id number], See Instructions, # 1 each, Refills 0, Tot. Refills 0, Maintenance, Diagnosis codes: G89.29, M19.90, J44.9, Z74.09, 01/30/20 9:31:00 EDT, Supply Start Date: 01/30/20 Status: Ordered Ventolin HFA 108 mcg/inh inhalation aerosol with adapter 2 puffs, Inhalation, 4 times a day, PRN Wheezing/Shortness of Breath, 90 days supply, # 1 each, 5 Refills, Maintenance, 10/07/20 6:45:00 EDT, [place], [place] - [id number], 163, cm, 09/24/20 13:25:00 EDT, Height Start Date: 10/07/20 Status: Ordered Victoza 18 mg/3 mL subcutaneous solution = 0.6 mg, Subcutaneous Infusion, Daily, # 6 mL, 2 Refills, Maintenance, 12/18/20 10:55:00 EDT, [place], [place] - [id number], Partial fill upon patient request if the prescription isfor a schedule II opioid drug., 163, cm, 12/18/20 9... Start Date: 12/18/20 Status: Ordered Vitamin B Complex oral tablet, extended release 1 tablet, By Mouth, Daily, with food., # 90 tablet, 3 Refills, Maintenance, 12/18/20 10:26:00 EDT, [place], [place] - [id number], Partial fill upon patient request if the prescription is for a schedule II opioid drug., 1 tablet By Rosana... Start Date: 12/18/20 Stop Date: 12/13/21 Status: Ordered Vitamin D3 1000 intl units oral tablet 1 tablet = 1,000 International_Units, By Mouth, Daily, # 90 tablet, 1 Refills, Maintenance, 08/10/20 15:51:00 EDT, [place], [place] - [id number], 163, cm, 07/31/20 13:11:00 EDT, Height Start [...] apnea(Confirmed) 4, 5 Active BHN/CCA/CP-Jo Ann Harvey [phone]/Health senior living active care coordination(Confirmed) Active 1Health Care Agent: [...]
== END 2023-09-15 08:00 | disposition home or self-care (01) ==
LOC: HO.HSMS 07:34
PROVIDERS: PCP Physician Assistant Medical; Visit Provider Nurse Practitioner Family
DX: G43.009 Migraine without aura, not intractable, without status migrainosus (principal); G47.33 Obstructive sleep apnea (adult) (pediatric)
CPT/HCPCS: 99214

== ENCOUNTER → 2023-09-15 07:34 | Outpatient (BNVA) | payer OTHER, SELFPAY | PROVIDERS: PCP Physician Assistant Medical; Visit Provider Nurse Practitioner Family ==

== ENCOUNTER → 2024-10-18 08:14 | Outpatient (BNVA) | payer OTHER, SELFPAY | PROVIDERS: PCP Physician Assistant Medical; Visit Provider Nurse Practitioner Family ==